=== PATIENT | female | born 1940 | race Caucasian/White ===

== ENCOUNTER 2016-03-16 16:20 | Inpatient (IN) | payer MEDICARE, MEDICAID ==
[2016-03-16 18:44] VITALS: BP 151/98
[2016-03-16] MEDS ORDERED: Magnesium Hydroxide (MOM) 30 mL UDC PO PRN (19:11)
[2016-03-16] MEDS ORDERED: Albuterol Nebulizer 2.5mg/3mL HHN PRN ×2 (19:11→19:36)
--- NOTE | 2016-03-17 00:33 | Consultation ---
IDENTIFYING INFORMATION: The patient is a 75-year-old female. REASON FOR CONSULTATION: I was asked to see this patient who was supposed to have been coming to [facility] because of agitation and irritability, but she was found to have acute hyponatremia. The patient herself was a poor historian. She was rambling, psychotic, agitated, irritable, unable to participate in a meaningful conversation, having multiple complaints, is very hard to understand. She has long history of psychosis with history of agitation and irritability. PAST PSYCHIATRIC HISTORY: Multiple prior admissions to this facility and other facilities because of psychosis, bipolar disorder, depression. MEDICAL HISTORY: Deferred to the medical doctor. The patient has acute hyponatremia. MEDICATIONS: The patient has been on the Zyprexa. FAMILY AND SOCIAL HISTORY: Please refer to old records, as the patient is unable to give me. The patient has been staying at [facility] for a long time. MENTAL STATUS EXAMINATION: The patient is appropriately dressed, not well groomed. She was rambling, loud, irritable, agitated, very hard to understand, unable to redirect to participate in meaningful conversation or make safe plan for self-care, unable to have her memory tested because of her agitation and psychosis. Her insight and judgment is impaired. IMPRESSION: AXIS I: Schizoaffective disorder, bipolar type. MEDICAL DIAGNOSES: Deferred to the medical doctor. RECOMMENDATIONS: Recommend continue the Zyprexa. The patient needed to be transferred to [facility] when medically cleared. Thank you very much for allowing me to participate in the care of this most interesting lady. ROBERTS [place]AP[place]# [id number]
[2016-03-17] MEDS: Levothyroxine 0.15 Mg Tab PO SCH (06:24)
[2016-03-17] MEDS: Potassium Chloride 20 mEq ER Tab PO SCH (09:05)
[2016-03-17] MEDS: Multivitamin w/ Minerals Tab PO SCH (09:05)
--- NOTE | 2016-03-17 14:12 | Psychosocial Evaluation ---
IDENTIFYING INFORMATION: The patient is a 75-year-old female. CHIEF COMPLAINT: The patient has no clue. HISTORY OF PRESENT ILLNESS: The patient was transferred from [facility]/surg. She was originally sent to [facility] because of agitation and psychosis. The patient herself was a poor historian, rambling and unable to participate in meaningful conversation or make safe plan for self-care, easily agitated. PAST PSYCHIATRIC HISTORY: Multiple prior admissions to this facility for similar reasons, agitation, psychosis. MEDICAL HISTORY: Deferred to the medical doctor. FAMILY AND SOCIAL HISTORY: Please refer to her old records. The patient is unable to tell me much. She has been at [place] for years now. MENTAL STATUS EXAMINATION: The patient is appropriately dressed, not well groomed. The patient was rambling and unable to participate in meaningful conversations or understand what she is talking about, unable to explain herself very well. She has been agitated, irritable, loud, labile mood, unable to provide memory testing or tell me the date, where she is, why she is here. Her insight and judgment is impaired. IMPRESSION: AXIS I: Schizoaffective disorder, bipolar type. MEDICAL DIAGNOSIS: Deferred to the medical doctor. Her assets, she is willing to get help, negative poor coping skills. INITIAL TREATMENT PLAN: The patient will be started back on her medications. She is on Zyprexa. We will do group therapy, milieu therapy, individual therapy. ESTIMATED LENGTH OF STAY: 3-7 days. DISCHARGE CRITERIA: Decreasing psychosis, agitation. After discharge, outpatient treatment. JOB# [id number]
--- NOTE | 2016-03-17 15:08 | Internal Medicine Prog Note ---
Internal Medicine Subjective - Subjective Service Date: 03/17/16 Patient seen and examined:: with staff Patient is:: awake Per staff patient is:: no adverse event Internal Medicine Objective - Physical Exam Vitals and I&O: Vital Signs Temp 98.0 F 03/16/16 18:43 Pulse 95 03/17/16 10:29 Resp 23 03/17/16 10:29 BP 143/72 03/17/16 09:06 Pulse Ox 96 03/16/16 19:45 Intake & Output 03/16/16 03/17/16 03/17/16 18:59 06:59 18:59 Other: Stool Characteristics Soft Soft Brown Active Medications: Current Medications Acetaminophen (Tylenol) 650 mg PO Q4H PRN PRN Reason: Mild Pain/Headache/T above 101 Stop: 05/15/16 19:10 Albuterol Sulfate (Albuterol 2.5mg/3ml Neb Ud) 2.5 mg HHN Q2HR PRN PRN Reason: Shortness of Breath Stop: 05/15/16 19:10 Ascorbic Acid (Vitamin C) 500 mg PO DAILY [facility] Stop: 05/16/16 08:59 Last Admin: 03/17/16 09:05 Dose: 500 mg Atenolol (Tenormin) 25 mg PO DAILY [facility] Stop: 05/16/16 08:59 Last Admin: 03/17/16 09:06 Dose: 25 mg Clonidine HCl (Catapres) 0.1 mg PO Q6H PRN PRN Reason: SBP >160 Stop: 05/15/16 19:35 Docusate Sodium (Colace) 100 mg PO BID [facility] Stop: 05/16/16 08:59 Last Admin: 03/17/16 09:05 Dose: 100 mg Guaifenesin (Robitussin) 200 mg PO Q4HR PRN PRN Reason: Cough or Congestion Stop: 05/15/16 19:35 Levothyroxine Sodium (Synthroid) 0.15 mg PO QDAC [facility] Stop: 05/16/16 06:29 Last Admin: 03/17/16 06:24 Dose: 0.15 mg Lisinopril (Zestril) 20 mg PO DAILY [facility] Stop: 05/16/16 08:59 Last Admin: 03/17/16 09:05 Dose: 20 mg Lorazepam (Ativan) 0.5 mg PO Q4HR PRN; Protocol PRN Reason: Agitation Stop: 05/16/16 13:36 Magnesium Hydroxide (Milk Of Magnesia) 30 ml PO DAILY PRN PRN Reason: Constipation Stop: 05/15/16 19:10 Meclizine HCl (Antivert) 25 mg PO DAILY PRN PRN Reason: Nausea / Vomiting Stop: 05/15/16 19:35 Olanzapine (Zyprexa) 10 mg PO HS [facility] PRN Reason: Protocol Stop: 05/16/16 20:59 Olanzapine (Zyprexa) 2.5 mg PO DAILY [facility] PRN Reason: Protocol Stop: 05/17/16 08:59 Potassium Chloride (Klor-Con) 20 meq PO DAILY [facility] Stop: 05/16/16 08:59 Last Admin: 03/17/16 09:05 Dose: 20 meq Sodium Chloride (Nacl Tab) 2 gm PO BID [facility] Stop: 05/16/16 08:59 Last Admin: 03/17/16 09:05 Dose: 2 gm Zolpidem Tartrate (Ambien) 10 mg PO HS PRN PRN Reason: Insomnia Stop: 05/15/16 19:10 General: alert HEENT: NC/AT, PERRLA Neck: Supple Lungs: CTAB Cardiovascular: RRR, Normal S1, Normal S2, without murmur Abdomen: soft non-tender Neurological: no change - Procedures Procedures: Procedures Procedure Code Date APPENDECTOMY ADD-ON 22872 08/04/15 BYPASS TRANSVERSE COLON TO CUTANEOUS, OPEN APPROACH [id number] 08/04/15 COLOSTOMY 55025 08/04/15 EXCISION OF LARGE INTESTINE, OPEN APPROACH [id number] 08/04/15 GROUP PSYCHOTHERAPY 30693 07/31/15 GROUP PSYCHOTHERAPY GZHZZZZ 07/31/15 GROUP PSYCHOTHERAPY 64972 04/02/15 GROUP PSYCHOTHERAPY GZHZZZZ 04/02/15 OTHER GROUP THERAPY 94.44 11/07/14 PARTIAL REMOVAL OF COLON 34446 08/04/15 RECREATIONAL THERAPY 93.81 02/21/10 RESECTION OF APPENDIX, OPEN APPROACH [id number] 08/04/15 Internal Medicine Assmt/Plan - Assessment Assessment: htn dyslipidemia hypothyroid dementia - Plan Plan: low fat diet monitor bp cpm
[2016-03-18] MEDS: Levothyroxine 0.15 Mg Tab PO SCH (06:25)
[2016-03-18] MEDS ORDERED: Haloperidol Lactate 5 mg/mL 1mL Vial ONE (10:15)
[2016-03-18] MEDS ORDERED: Haloperidol Lactate 5 mg/mL 1mL Vial IM ONE (10:23)
[2016-03-18] MEDS: Multivitamin w/ Minerals Tab PO SCH (10:41)
[2016-03-18] MEDS: Potassium Chloride 20 mEq ER Tab PO SCH (10:41)
--- NOTE | 2016-03-18 14:30 | Internal Medicine Prog Note ---
Internal Medicine Subjective - Subjective Service Date: 03/18/16 Patient seen and examined:: with staff Patient is:: awake Per staff patient is:: no adverse event Internal Medicine Objective - Physical Exam Vitals and I&O: Vital Signs Temp 98 F 03/18/16 07:12 Pulse 74 03/18/16 10:40 Resp 20 03/18/16 07:12 BP 146/84 03/18/16 10:40 Pulse Ox 97 03/18/16 07:12 Intake & Output 03/17/16 03/18/16 03/18/16 18:59 06:59 18:59 Intake Total 1200 Balance 1200 Intake: Oral 1200 Other: # Voids 2 # Bowel Movements 2 Stool Characteristics Soft Soft Brown Active Medications: Current Medications Acetaminophen (Tylenol) 650 mg PO Q4H PRN PRN Reason: Mild Pain/Headache/T above 101 Stop: 05/15/16 19:10 Albuterol Sulfate (Albuterol 2.5mg/3ml Neb Ud) 2.5 mg HHN Q2HR PRN PRN Reason: Shortness of Breath Stop: 05/15/16 19:10 Ascorbic Acid (Vitamin C) 500 mg PO DAILY [facility] Stop: 05/16/16 08:59 Last Admin: 03/18/16 10:37 Dose: Not Given Atenolol (Tenormin) 25 mg PO DAILY [facility] Stop: 05/16/16 08:59 Last Admin: 03/18/16 10:40 Dose: Not Given Clonidine HCl (Catapres) 0.1 mg PO Q6H PRN PRN Reason: SBP >160 Stop: 05/15/16 19:35 Docusate Sodium (Colace) 100 mg PO BID [facility] Stop: 05/16/16 08:59 Last Admin: 03/18/16 10:38 Dose: Not Given Guaifenesin (Robitussin) 200 mg PO Q4HR PRN PRN Reason: Cough or Congestion Stop: 05/15/16 19:35 Levothyroxine Sodium (Synthroid) 0.15 mg PO QDAC [facility] Stop: 05/16/16 06:29 Last Admin: 03/18/16 06:25 Dose: 0.15 mg Lisinopril (Zestril) 20 mg PO DAILY [facility] Stop: 05/16/16 08:59 Last Admin: 03/18/16 10:38 Dose: Not Given Lorazepam (Ativan) 0.5 mg PO Q4HR PRN; Protocol PRN Reason: Agitation Stop: 05/16/16 13:36 Magnesium Hydroxide (Milk Of Magnesia) 30 ml PO DAILY PRN PRN Reason: Constipation Stop: 05/15/16 19:10 Meclizine HCl (Antivert) 25 mg PO DAILY PRN PRN Reason: Nausea / Vomiting Stop: 05/15/16 19:35 Olanzapine (Zyprexa) 10 mg PO HS [facility] PRN Reason: Protocol Stop: 05/16/16 20:59 Last Admin: 03/17/16 20:41 Dose: 10 mg Olanzapine (Zyprexa) 5 mg PO DAILY [facility] PRN Reason: Protocol Stop: 05/17/16 09:47 Potassium Chloride (Klor-Con) 20 meq PO DAILY [facility] Stop: 05/16/16 08:59 Last Admin: 03/18/16 10:41 Dose: Not Given Sodium Chloride (Nacl Tab) 2 gm PO BID [facility] Stop: 05/16/16 08:59 Last Admin: 03/18/16 10:41 Dose: Not Given Zolpidem Tartrate (Ambien) 10 mg PO HS PRN PRN Reason: Insomnia Stop: 05/15/16 19:10 General: alert HEENT: NC/AT, PERRLA Neck: Supple Lungs: CTAB Cardiovascular: RRR, Normal S1, Normal S2, without murmur Abdomen: soft non-tender - Procedures Procedures: Procedures Procedure Code Date APPENDECTOMY ADD-ON 11294 08/04/15 BYPASS TRANSVERSE COLON TO CUTANEOUS, OPEN APPROACH [id number] 08/04/15 COLOSTOMY 20391 08/04/15 EXCISION OF LARGE INTESTINE, OPEN APPROACH [id number] 08/04/15 GROUP PSYCHOTHERAPY 85917 07/31/15 GROUP PSYCHOTHERAPY GZHZZZZ 07/31/15 GROUP PSYCHOTHERAPY 97522 04/02/15 GROUP PSYCHOTHERAPY GZHZZZZ 04/02/15 OTHER GROUP THERAPY 94.44 11/07/14 PARTIAL REMOVAL OF COLON 21646 08/04/15 RECREATIONAL THERAPY 93.81 02/21/10 RESECTION OF APPENDIX, OPEN APPROACH [id number] 08/04/15 Internal Medicine Assmt/Plan - Assessment Assessment: htn dyslipidemia hypothyroid dementia - Plan Plan: low fat diet monitor bp cpm
--- NOTE | 2016-03-19 00:43 | Progress Notes ---
Case discussed with staff of the patient, reviewed records. The patient continues to be easily agitated. She was naked, put her pants down, to the nurses' station, yelling, screaming. Very poor insight. Continues to be unpredictable, impulsive. Unable to make safe plan for her self-care. She is sleeping well, eating well. She has been compliant with the medication with no side effects, no sedation, no nausea, no extrapyramidal symptoms. I will be increasing her Zyprexa to 5 mg in the morning, continue the 10 mg at bedtime. No side effects, no sedation, no nausea, no extrapyramidal symptoms. We will continue to work with the patient in group therapy, milieu therapy, adjust the medication as needed. JOB# [id number]
[2016-03-19] MEDS: Levothyroxine 0.15 Mg Tab PO SCH (06:34)
[2016-03-19] MEDS: Potassium Chloride 20 mEq ER Tab PO SCH (09:39)
[2016-03-19] MEDS: Multivitamin w/ Minerals Tab PO SCH (09:41)
--- NOTE | 2016-03-19 11:46 | Internal Medicine Prog Note ---
Internal Medicine Subjective - Subjective Service Date: 03/19/16 Patient seen and examined:: with staff Patient is:: awake Per staff patient is:: no adverse event Internal Medicine Objective - Physical Exam Vitals and I&O: Vital Signs Temp 98.1 F 03/18/16 20:22 Pulse 97 03/19/16 09:39 Resp 18 03/19/16 07:05 BP 175/90 03/19/16 09:39 Pulse Ox 96 03/19/16 07:05 Intake & Output 03/18/16 03/19/16 03/19/16 18:59 06:59 18:59 Intake Total 1480 Balance 1480 Intake: Oral 1480 Other: # Voids 2 1 Stool Characteristics Soft Soft Active Medications: Current Medications Acetaminophen (Tylenol) 650 mg PO Q4H PRN PRN Reason: Mild Pain/Headache/T above 101 Stop: 05/15/16 19:10 Albuterol Sulfate (Albuterol 2.5mg/3ml Neb Ud) 2.5 mg HHN Q2HR PRN PRN Reason: Shortness of Breath Stop: 05/15/16 19:10 Ascorbic Acid (Vitamin C) 500 mg PO DAILY [facility] Stop: 05/16/16 08:59 Last Admin: 03/19/16 09:42 Dose: 500 mg Atenolol (Tenormin) 25 mg PO DAILY [facility] Stop: 05/16/16 08:59 Last Admin: 03/19/16 09:38 Dose: 25 mg Clonidine HCl (Catapres) 0.1 mg PO Q6H PRN PRN Reason: SBP >160 Stop: 05/15/16 19:35 Docusate Sodium (Colace) 100 mg PO BID [facility] Stop: 05/16/16 08:59 Last Admin: 03/19/16 09:42 Dose: Not Given Guaifenesin (Robitussin) 200 mg PO Q4HR PRN PRN Reason: Cough or Congestion Stop: 05/15/16 19:35 Levothyroxine Sodium (Synthroid) 0.15 mg PO QDAC [facility] Stop: 05/16/16 06:29 Last Admin: 03/19/16 06:34 Dose: Not Given Lisinopril (Zestril) 20 mg PO DAILY [facility] Stop: 05/16/16 08:59 Last Admin: 03/19/16 09:39 Dose: 20 mg Lorazepam (Ativan) 0.5 mg PO Q4HR PRN; Protocol PRN Reason: Agitation Stop: 05/16/16 13:36 Magnesium Hydroxide (Milk Of Magnesia) 30 ml PO DAILY PRN PRN Reason: Constipation Stop: 05/15/16 19:10 Meclizine HCl (Antivert) 25 mg PO DAILY PRN PRN Reason: Nausea / Vomiting Stop: 05/15/16 19:35 Olanzapine (Zyprexa) 10 mg PO HS [facility] PRN Reason: Protocol Stop: 05/16/16 20:59 Last Admin: 03/18/16 21:16 Dose: Not Given Olanzapine (Zyprexa) 5 mg PO DAILY [facility] PRN Reason: Protocol Stop: 05/17/16 09:47 Last Admin: 03/19/16 09:40 Dose: 5 mg Potassium Chloride (Klor-Con) 20 meq PO DAILY [facility] Stop: 05/16/16 08:59 Last Admin: 03/19/16 09:39 Dose: 20 meq Sodium Chloride (Nacl Tab) 2 gm PO BID [facility] Stop: 05/16/16 08:59 Last Admin: 03/19/16 09:40 Dose: 2 gm Zolpidem Tartrate (Ambien) 10 mg PO HS PRN PRN Reason: Insomnia Stop: 05/15/16 19:10 General: alert Neck: Supple Lungs: CTAB Cardiovascular: RRR, Normal S1, Normal S2, without murmur Abdomen: soft non-tender Extremities: clear - Procedures Procedures: Procedures Procedure Code Date APPENDECTOMY ADD-ON 44271 08/04/15 BYPASS TRANSVERSE COLON TO CUTANEOUS, OPEN APPROACH [id number] 08/04/15 COLOSTOMY 79590 08/04/15 EXCISION OF LARGE INTESTINE, OPEN APPROACH [id number] 08/04/15 GROUP PSYCHOTHERAPY 57274 07/31/15 GROUP PSYCHOTHERAPY GZHZZZZ 07/31/15 GROUP PSYCHOTHERAPY 00859 04/02/15 GROUP PSYCHOTHERAPY GZHZZZZ 04/02/15 OTHER GROUP THERAPY 94.44 11/07/14 PARTIAL REMOVAL OF COLON 81528 08/04/15 RECREATIONAL THERAPY 93.81 02/21/10 RESECTION OF APPENDIX, OPEN APPROACH [id number] 08/04/15 Internal Medicine Assmt/Plan - Assessment Assessment: htn dyslipidemia hypothyroid dementia - Plan Plan: low fat diet monitor bp cpm
[2016-03-20] MEDS: Levothyroxine 0.15 Mg Tab PO SCH (06:33)
[2016-03-20] MEDS: Potassium Chloride 20 mEq ER Tab PO SCH (09:05)
[2016-03-20] MEDS: Multivitamin w/ Minerals Tab PO SCH (09:06)
--- NOTE | 2016-03-20 09:08 | Progress Notes ---
Dr. Reed covering for Dr. Kaufman. SUBJECTIVE: The patient was seen and evaluated. The patient's chart reviewed. Overnight's staff members reported that the patient had received an IM after the patient was found to be disrobing herself. On [id number] evaluation, the patient is easily irritable, easily agitated, curses at times, needing some redirection to have a linear conversation, which she is not able to engage in. MENTAL STATUS EXAMINATION: Easily irritable, agitated, disorganized thought process. Poor insight, poor judgment, poor impulse control. ASSESSMENT AND PLAN: The patient is a 75-year-old female who still presents easily disorganized, disheveled, needing some redirections and mainly refusing her medications. We will continue with primary psychiatrist's treatment plan and goals, olanzapine 15 mg a day and continue with the current medication regimen till reaching steady state to target the patient's disorganized thought process. JOB# [id number]
--- NOTE | 2016-03-20 14:59 | Internal Medicine Prog Note ---
Internal Medicine Subjective - Subjective Service Date: 03/20/16 Patient seen and examined:: with staff Patient is:: awake Per staff patient is:: no adverse event Internal Medicine Objective - Physical Exam Vitals and I&O: Vital Signs Temp 97.9 F 03/20/16 06:25 Pulse 81 03/20/16 09:05 Resp 20 03/20/16 06:25 BP 168/85 03/20/16 09:05 Pulse Ox 95 03/20/16 06:25 Intake & Output 03/19/16 03/20/16 03/20/16 18:59 06:59 18:59 Intake Total 900 120 Balance 900 120 Intake: Oral 900 120 Other: # Voids 4 3 # Bowel Movements 1 0 Stool Characteristics Soft Soft Liquid Active Medications: Current Medications Acetaminophen (Tylenol) 650 mg PO Q4H PRN PRN Reason: Mild Pain/Headache/T above 101 Stop: 05/15/16 19:10 Last Admin: 03/20/16 09:04 Dose: 650 mg Albuterol Sulfate (Albuterol 2.5mg/3ml Neb Ud) 2.5 mg HHN Q2HR PRN PRN Reason: Shortness of Breath Stop: 05/15/16 19:10 Ascorbic Acid (Vitamin C) 500 mg PO DAILY [facility] Stop: 05/16/16 08:59 Last Admin: 03/20/16 09:06 Dose: 500 mg Atenolol (Tenormin) 25 mg PO DAILY [facility] Stop: 05/16/16 08:59 Last Admin: 03/20/16 09:04 Dose: 25 mg Clonidine HCl (Catapres) 0.1 mg PO Q6H PRN PRN Reason: SBP >160 Stop: 05/15/16 19:35 Docusate Sodium (Colace) 100 mg PO BID [facility] Stop: 05/16/16 08:59 Last Admin: 03/20/16 09:05 Dose: 100 mg Guaifenesin (Robitussin) 200 mg PO Q4HR PRN PRN Reason: Cough or Congestion Stop: 05/15/16 19:35 Levothyroxine Sodium (Synthroid) 0.15 mg PO QDAC [facility] Stop: 05/16/16 06:29 Last Admin: 03/20/16 06:33 Dose: 0.15 mg Lisinopril (Zestril) 20 mg PO DAILY [facility] Stop: 05/16/16 08:59 Last Admin: 03/20/16 09:05 Dose: 20 mg Lorazepam (Ativan) 0.5 mg PO Q4HR PRN; Protocol PRN Reason: Agitation Stop: 05/16/16 13:36 Last Admin: 03/20/16 09:04 Dose: 0.5 mg Magnesium Hydroxide (Milk Of Magnesia) 30 ml PO DAILY PRN PRN Reason: Constipation Stop: 05/15/16 19:10 Meclizine HCl (Antivert) 25 mg PO DAILY PRN PRN Reason: Nausea / Vomiting Stop: 05/15/16 19:35 Olanzapine (Zyprexa) 10 mg PO HS [facility] PRN Reason: Protocol Stop: 05/16/16 20:59 Last Admin: 03/19/16 20:28 Dose: 10 mg Olanzapine (Zyprexa) 10 mg PO DAILY [facility] PRN Reason: Protocol Stop: 05/17/16 09:47 Potassium Chloride (Klor-Con) 20 meq PO DAILY [facility] Stop: 05/16/16 08:59 Last Admin: 03/20/16 09:05 Dose: 20 meq Sodium Chloride (Nacl Tab) 2 gm PO BID [facility] Stop: 05/16/16 08:59 Last Admin: 03/20/16 09:05 Dose: 2 gm Zolpidem Tartrate (Ambien) 10 mg PO HS PRN PRN Reason: Insomnia Stop: 05/15/16 19:10 General: alert HEENT: NC/AT, PERRLA Neck: Supple Lungs: CTAB Cardiovascular: RRR, Normal S1, Normal S2, without murmur Abdomen: soft non-tender Neurological: no change - Procedures Procedures: Procedures Procedure Code Date APPENDECTOMY ADD-ON 49684 08/04/15 BYPASS TRANSVERSE COLON TO CUTANEOUS, OPEN APPROACH [id number] 08/04/15 COLOSTOMY 24742 08/04/15 EXCISION OF LARGE INTESTINE, OPEN APPROACH [id number] 08/04/15 GROUP PSYCHOTHERAPY 60720 07/31/15 GROUP PSYCHOTHERAPY GZHZZZZ 07/31/15 GROUP PSYCHOTHERAPY 31724 04/02/15 GROUP PSYCHOTHERAPY GZHZZZZ 04/02/15 OTHER GROUP THERAPY 94.44 11/07/14 PARTIAL REMOVAL OF COLON 41685 08/04/15 RECREATIONAL THERAPY 93.81 02/21/10 RESECTION OF APPENDIX, OPEN APPROACH [id number] 08/04/15 Internal Medicine Assmt/Plan - Assessment Assessment: htn dyslipidemia hypothyroid dementia - Plan Plan: low fat diet monitor bp cpm
--- NOTE | 2016-03-21 02:47 | Progress Notes ---
SUBJECTIVE: The patient was seen and evaluated. The patient's chart reviewed. Overnight's staff members reported that the patient is easily irritable. Today, on [id number] evaluation, the patient is in the day room, very disorganized, very difficult to understand, to maintain a coherent conversation, needed some redirection. MENTAL STATUS EXAMINATION: Disorganized thought process, disheveled, and malodorous. Poor insight and poor judgment. Poor impulse control. ASSESSMENT AND PLAN: The patient is a 75-year-old female who presents very disorganized, disheveled, malodorous, unable to formulate a safe plan. We will continue with primary psychiatric treatment plan and goals due to the patient's very disorganized thought process and she is unable to formulate a safe plan. We will continue maximizing the use of antipsychotics to target the patient's disorganized thought process. JOB# [id number] MTDD
[2016-03-21] MEDS: Levothyroxine 0.15 Mg Tab PO SCH (06:38)
--- NOTE | 2016-03-21 15:44 | Internal Medicine Prog Note ---
Internal Medicine Subjective - Subjective Patient seen and examined:: with staff, chart reviewed Patient is:: awake, ambulating Patient Complaints of:: congestion Per staff patient is:: no adverse event, noncompliant, confused Internal Medicine Objective - Physical Exam Vitals and I&O: Vital Signs Temp 97.7 F 03/21/16 06:15 Pulse 83 03/21/16 06:15 Resp 18 03/21/16 08:54 BP 124/77 03/21/16 06:15 Pulse Ox 95 03/21/16 06:15 Intake & Output 03/20/16 03/21/16 03/21/16 18:59 06:59 18:59 Intake Total 900 120 Balance 900 120 Intake: Oral 900 120 Other: # Voids 3 3 # Bowel Movements 1 0 Stool Characteristics Soft Soft Liquid Active Medications: Current Medications Acetaminophen (Tylenol) 650 mg PO Q4H PRN PRN Reason: Mild Pain/Headache/T above 101 Stop: 05/15/16 19:10 Last Admin: 03/21/16 09:25 Dose: 650 mg Albuterol Sulfate (Albuterol 2.5mg/3ml Neb Ud) 2.5 mg HHN Q2HR PRN PRN Reason: Shortness of Breath Stop: 05/15/16 19:10 Ascorbic Acid (Vitamin C) 500 mg PO DAILY [facility] Stop: 05/16/16 08:59 Last Admin: 03/20/16 09:06 Dose: 500 mg Atenolol (Tenormin) 25 mg PO DAILY [facility] Stop: 05/16/16 08:59 Last Admin: 03/20/16 09:04 Dose: 25 mg Clonidine HCl (Catapres) 0.1 mg PO Q6H PRN PRN Reason: SBP >160 Stop: 05/15/16 19:35 Docusate Sodium (Colace) 100 mg PO BID [facility] Stop: 05/16/16 08:59 Last Admin: 03/20/16 16:50 Dose: 100 mg Guaifenesin (Robitussin) 200 mg PO Q4HR PRN PRN Reason: Cough or Congestion Stop: 05/15/16 19:35 Levothyroxine Sodium (Synthroid) 0.15 mg PO QDAC [facility] Stop: 05/16/16 06:29 Last Admin: 03/21/16 06:38 Dose: 0.15 mg Lisinopril (Zestril) 20 mg PO DAILY [facility] Stop: 05/16/16 08:59 Last Admin: 03/20/16 09:05 Dose: 20 mg Lorazepam (Ativan) 0.5 mg PO Q4HR PRN; Protocol PRN Reason: Agitation Stop: 05/16/16 13:36 Last Admin: 03/20/16 09:04 Dose: 0.5 mg Magnesium Hydroxide (Milk Of Magnesia) 30 ml PO DAILY PRN PRN Reason: Constipation Stop: 05/15/16 19:10 Meclizine HCl (Antivert) 25 mg PO DAILY PRN PRN Reason: Nausea / Vomiting Stop: 05/15/16 19:35 Olanzapine (Zyprexa) 10 mg PO HS [facility] PRN Reason: Protocol Stop: 05/16/16 20:59 Last Admin: 03/20/16 20:35 Dose: 10 mg Olanzapine (Zyprexa) 10 mg PO DAILY [facility] PRN Reason: Protocol Stop: 05/17/16 09:47 Last Admin: 03/21/16 09:26 Dose: 10 mg Potassium Chloride (Klor-Con) 20 meq PO DAILY [facility] Stop: 05/16/16 08:59 Last Admin: 03/20/16 09:05 Dose: 20 meq Sodium Chloride (Nacl Tab) 2 gm PO BID [facility] Stop: 05/16/16 08:59 Last Admin: 03/20/16 16:49 Dose: 2 gm Zolpidem Tartrate (Ambien) 10 mg PO HS PRN PRN Reason: Insomnia Stop: 05/15/16 19:10 Last Admin: 03/20/16 20:35 Dose: 10 mg General: lethargic, demented HEENT: NC/AT, PERRLA Neck: Supple, No JVD Lungs: CTAB Cardiovascular: RRR, Normal S1, Normal S2 Abdomen: soft non-tender, globular, distended Extremities: excoriation, contracture Neurological: no change - Procedures Procedures: Procedures Procedure Code Date APPENDECTOMY ADD-ON 70538 08/04/15 BYPASS TRANSVERSE COLON TO CUTANEOUS, OPEN APPROACH [id number] 08/04/15 COLOSTOMY 59355 08/04/15 EXCISION OF LARGE INTESTINE, OPEN APPROACH [id number] 08/04/15 GROUP PSYCHOTHERAPY 35524 07/31/15 GROUP PSYCHOTHERAPY GZHZZZZ 07/31/15 GROUP PSYCHOTHERAPY 46318 04/02/15 GROUP PSYCHOTHERAPY GZHZZZZ 04/02/15 OTHER GROUP THERAPY 94.44 11/07/14 PARTIAL REMOVAL OF COLON 51286 08/04/15 RECREATIONAL THERAPY 93.81 02/21/10 RESECTION OF APPENDIX, OPEN APPROACH [id number] 08/04/15 Internal Medicine Assmt/Plan - Assessment Assessment: rectal prolapse htn dyslipidemia hypothyroid dementia noncompliant - Plan Plan: cont on bp med monitor for rectal bleed monitor h and h gerry rn
[2016-03-21] MEDS: Potassium Chloride 20 mEq ER Tab PO SCH (16:10)
[2016-03-21] MEDS: Multivitamin w/ Minerals Tab PO SCH (16:10)
--- NOTE | 2016-03-21 18:52 | Progress Notes ---
SUBJECTIVE: The patient seen, chart reviewed, discussed with staff. The patient presents to the hospital, disorganized, disheveled and malodorous, unable to be cared for at a lower level of care. She is yelling at me, screaming at me, easily irritable, I cannot understand her. Needing a lot of redirection. Following me until the dayroom, continuing to yell. Medications were reviewed. Labs were reviewed. No overt side effects noted. The patient is frustrated. ASSESSMENT: The patient remains symptomatic, still needing redirection and needing prompting. She is with fair attention ADLs, but still symptomatic. PLAN: We will continue to monitor her closely for any overt medication side effects. Given the severity of the patient's symptoms, she requires continued inpatient hospitalization. The patient is currently in the hospital due to agitation and unable to be cared for a lesser level of care. She has been to this [facility] unit multiple times. JOB# [id number]
[2016-03-22] MEDS: guaiFENesin 200 MG/10 ML UDC PO PRN (01:43)
[2016-03-22] MEDS: Potassium Chloride 20 mEq ER Tab PO SCH (09:14)
[2016-03-22] MEDS: Multivitamin w/ Minerals Tab PO SCH (09:14)
--- NOTE | 2016-03-22 12:37 | Internal Medicine Prog Note ---
Internal Medicine Subjective - Subjective Service Date: 03/22/16 Patient seen and examined:: with staff Patient is:: awake Per staff patient is:: no adverse event Internal Medicine Objective - Physical Exam Vitals and I&O: Vital Signs Temp 98.1 F 03/22/16 06:07 Pulse 88 03/22/16 09:15 Resp 18 03/22/16 09:00 BP 126/75 03/22/16 09:15 Pulse Ox 95 03/22/16 09:00 Intake & Output 03/21/16 03/22/16 03/22/16 18:59 06:59 18:59 Intake Total 1200 480 Balance 1200 480 Intake: Oral 1200 480 Other: # Voids 4 2 # Bowel Movements 2 2 Stool Characteristics Liquid Brown Active Medications: Current Medications Acetaminophen (Tylenol) 650 mg PO Q4H PRN PRN Reason: Mild Pain/Headache/T above 101 Stop: 05/15/16 19:10 Last Admin: 03/21/16 09:25 Dose: 650 mg Albuterol Sulfate (Albuterol 2.5mg/3ml Neb Ud) 2.5 mg HHN Q2HR PRN PRN Reason: Shortness of Breath Stop: 05/15/16 19:10 Ascorbic Acid (Vitamin C) 500 mg PO DAILY [facility] Stop: 05/16/16 08:59 Last Admin: 03/22/16 09:14 Dose: 500 mg Atenolol (Tenormin) 25 mg PO DAILY [facility] Stop: 05/16/16 08:59 Last Admin: 03/22/16 09:15 Dose: 25 mg Clonidine HCl (Catapres) 0.1 mg PO Q6H PRN PRN Reason: SBP >160 Stop: 05/15/16 19:35 Docusate Sodium (Colace) 100 mg PO BID [facility] Stop: 05/16/16 08:59 Last Admin: 03/22/16 09:14 Dose: 100 mg Guaifenesin (Robitussin) 200 mg PO Q4HR PRN PRN Reason: Cough or Congestion Stop: 05/15/16 19:35 Last Admin: 03/22/16 01:43 Dose: 200 mg Levothyroxine Sodium (Synthroid) 0.15 mg PO QDAC [facility] Stop: 05/16/16 06:29 Last Admin: 03/21/16 06:38 Dose: 0.15 mg Lisinopril (Zestril) 20 mg PO DAILY [facility] Stop: 05/16/16 08:59 Last Admin: 03/22/16 09:14 Dose: 20 mg Lorazepam (Ativan) 0.5 mg PO Q4HR PRN; Protocol PRN Reason: Agitation Stop: 05/16/16 13:36 Last Admin: 03/20/16 09:04 Dose: 0.5 mg Magnesium Hydroxide (Milk Of Magnesia) 30 ml PO DAILY PRN PRN Reason: Constipation Stop: 05/15/16 19:10 Meclizine HCl (Antivert) 25 mg PO DAILY PRN PRN Reason: Nausea / Vomiting Stop: 05/15/16 19:35 Olanzapine (Zyprexa) 10 mg PO DAILY [facility] PRN Reason: Protocol Stop: 05/17/16 09:47 Last Admin: 03/22/16 09:14 Dose: 10 mg Olanzapine 10 mg/ Olanzapine 2 (.5 mg) 12.5 mg PO HS [facility] Stop: 05/21/16 20:59 Potassium Chloride (Klor-Con) 20 meq PO DAILY [facility] Stop: 05/16/16 08:59 Last Admin: 03/22/16 09:14 Dose: 20 meq Sodium Chloride (Nacl Tab) 2 gm PO BID [facility] Stop: 05/16/16 08:59 Last Admin: 03/22/16 09:14 Dose: 2 gm Zolpidem Tartrate (Ambien) 10 mg PO HS PRN PRN Reason: Insomnia Stop: 05/15/16 19:10 Last Admin: 03/20/16 20:35 Dose: 10 mg General: alert HEENT: NC/AT, PERRLA Neck: Supple Lungs: CTAB Cardiovascular: RRR, Normal S1, Normal S2, without murmur Abdomen: soft non-tender Extremities: clear - Procedures Procedures: Procedures Procedure Code Date APPENDECTOMY ADD-ON 64648 08/04/15 BYPASS TRANSVERSE COLON TO CUTANEOUS, OPEN APPROACH [id number] 08/04/15 COLOSTOMY 68406 08/04/15 EXCISION OF LARGE INTESTINE, OPEN APPROACH [id number] 08/04/15 GROUP PSYCHOTHERAPY 92725 07/31/15 GROUP PSYCHOTHERAPY GZHZZZZ 07/31/15 GROUP PSYCHOTHERAPY 11657 04/02/15 GROUP PSYCHOTHERAPY GZHZZZZ 04/02/15 OTHER GROUP THERAPY 94.44 11/07/14 PARTIAL REMOVAL OF COLON 65188 08/04/15 RECREATIONAL THERAPY 93.81 02/21/10 RESECTION OF APPENDIX, OPEN APPROACH [id number] 08/04/15 Internal Medicine Assmt/Plan - Assessment Assessment: htn dyslipidemia hypothyroid dementia - Plan Plan: low fat diet monitor bp cpm
--- NOTE | 2016-03-22 23:57 | Progress Notes ---
Case was discussed with staff of the patient, reviewed records. The patient continues to be irritable, agitated, and continues to have poor insight. Continues to be unable to make safe plan for self-care. Continues to need redirection. Unpredictable impulsive, and very poor insight. Loud, mumbling, very hard to understand. Very hard to redirect, and so far, she is compliant with the medication with no side effects, no sedation, and no nausea. She is on olanzapine 10 mg at bedtime and 10 mg daily. I will be increasing olanzapine at bedtime to 12.5 mg at bedtime, and so far, no side effects and no sedation. We will continue to work with the patient in group therapy, milieu therapy, and adjust the medication as needed. JOB# [id number]
[2016-03-23] MEDS: Potassium Chloride 20 mEq ER Tab PO SCH (11:18)
[2016-03-23] MEDS: Multivitamin w/ Minerals Tab PO SCH (11:18)
--- NOTE | 2016-03-23 13:55 | Internal Medicine Prog Note ---
Internal Medicine Subjective - Subjective Service Date: 03/23/16 Patient seen and examined:: with staff Patient is:: awake Per staff patient is:: no adverse event Internal Medicine Objective - Physical Exam Vitals and I&O: Vital Signs Temp 0 F 03/23/16 06:17 Pulse 70 03/23/16 11:01 Resp 18 03/23/16 11:01 BP 111/60 03/22/16 20:44 Pulse Ox 94 03/23/16 11:01 Intake & Output 03/22/16 03/23/16 03/23/16 18:59 06:59 18:59 Intake Total 1100 120 Balance 1100 120 Intake: Oral 1100 120 Other: # Voids 5 4 # Bowel Movements 3 0 Stool Characteristics Soft Soft Liquid Liquid Brown Active Medications: Current Medications Acetaminophen (Tylenol) 650 mg PO Q4H PRN PRN Reason: Mild Pain/Headache/T above 101 Stop: 05/15/16 19:10 Last Admin: 03/21/16 09:25 Dose: 650 mg Albuterol Sulfate (Albuterol 2.5mg/3ml Neb Ud) 2.5 mg HHN Q2HR PRN PRN Reason: Shortness of Breath Stop: 05/15/16 19:10 Ascorbic Acid (Vitamin C) 500 mg PO DAILY [facility] Stop: 05/16/16 08:59 Last Admin: 03/23/16 11:16 Dose: Not Given Atenolol (Tenormin) 25 mg PO DAILY [facility] Stop: 05/16/16 08:59 Last Admin: 03/23/16 11:16 Dose: Not Given Clonidine HCl (Catapres) 0.1 mg PO Q6H PRN PRN Reason: SBP >160 Stop: 05/15/16 19:35 Docusate Sodium (Colace) 100 mg PO BID [facility] Stop: 05/16/16 08:59 Last Admin: 03/23/16 11:17 Dose: Not Given Guaifenesin (Robitussin) 200 mg PO Q4HR PRN PRN Reason: Cough or Congestion Stop: 05/15/16 19:35 Last Admin: 03/22/16 01:43 Dose: 200 mg Levothyroxine Sodium (Synthroid) 0.15 mg PO QDAC [facility] Stop: 05/16/16 06:29 Last Admin: 03/21/16 06:38 Dose: 0.15 mg Lisinopril (Zestril) 20 mg PO DAILY [facility] Stop: 05/16/16 08:59 Last Admin: 03/23/16 11:18 Dose: Not Given Lorazepam (Ativan) 0.5 mg PO Q4HR PRN; Protocol PRN Reason: Agitation Stop: 05/16/16 13:36 Last Admin: 03/20/16 09:04 Dose: 0.5 mg Magnesium Hydroxide (Milk Of Magnesia) 30 ml PO DAILY PRN PRN Reason: Constipation Stop: 05/15/16 19:10 Meclizine HCl (Antivert) 25 mg PO DAILY PRN PRN Reason: Nausea / Vomiting Stop: 05/15/16 19:35 Olanzapine (Zyprexa) 10 mg PO DAILY [facility] PRN Reason: Protocol Stop: 05/17/16 09:47 Last Admin: 03/23/16 11:18 Dose: Not Given Olanzapine 10 mg/ Olanzapine 2 (.5 mg) 12.5 mg PO HS [facility] Stop: 05/21/16 20:59 Last Admin: 03/22/16 20:29 Dose: 12.5 mg Potassium Chloride (Klor-Con) 20 meq PO DAILY [facility] Stop: 05/16/16 08:59 Last Admin: 03/23/16 11:18 Dose: Not Given Sodium Chloride (Nacl Tab) 2 gm PO BID [facility] Stop: 05/16/16 08:59 Last Admin: 03/23/16 11:19 Dose: Not Given Zolpidem Tartrate (Ambien) 10 mg PO HS PRN PRN Reason: Insomnia Stop: 05/15/16 19:10 Last Admin: 03/20/16 20:35 Dose: 10 mg General: alert HEENT: NC/AT, PERRLA Neck: Supple Lungs: CTAB Cardiovascular: RRR, Normal S1, Normal S2, without murmur Abdomen: soft non-tender - Procedures Procedures: Procedures Procedure Code Date APPENDECTOMY ADD-ON 36385 08/04/15 BYPASS TRANSVERSE COLON TO CUTANEOUS, OPEN APPROACH [id number] 08/04/15 COLOSTOMY 13789 08/04/15 EXCISION OF LARGE INTESTINE, OPEN APPROACH [id number] 08/04/15 GROUP PSYCHOTHERAPY 57436 07/31/15 GROUP PSYCHOTHERAPY GZHZZZZ 07/31/15 GROUP PSYCHOTHERAPY 40597 04/02/15 GROUP PSYCHOTHERAPY GZHZZZZ 04/02/15 OTHER GROUP THERAPY 94.44 11/07/14 PARTIAL REMOVAL OF COLON 29562 08/04/15 RECREATIONAL THERAPY 93.81 02/21/10 RESECTION OF APPENDIX, OPEN APPROACH [id number] 08/04/15 Internal Medicine Assmt/Plan - Assessment Assessment: htn dyslipidemia hypothyroid dementia - Plan Plan: low fat diet monitor bp cpm
[2016-03-23] MEDS: guaiFENesin 200 MG/10 ML UDC PO PRN (19:59)
--- NOTE | 2016-03-23 20:02 | Progress Notes ---
Case was discussed with staff of the patient, reviewed records. The patient continues to be agitated, irritable, and continues to need redirection. Continues to have poor insight. Continues to be unpredictable and impulsive. She is holding her colostomy bag, yelling and screaming. I did increase her Zyprexa yesterday. She is compliant with the medication with no side effects, no sedation, and no nausea. It is too early to make further adjustments as the dose was increased only yesterday. So, it is too early to have seen any benefit from it. We will continue to work with the patient in group therapy, milieu therapy, and adjust the medication as needed. JOB# [id number]
[2016-03-24] MEDS: Levothyroxine 0.15 Mg Tab PO SCH (06:31)
[2016-03-24] MEDS: Potassium Chloride 20 mEq ER Tab PO SCH (09:07)
[2016-03-24] MEDS: Multivitamin w/ Minerals Tab PO SCH (09:07)
--- NOTE | 2016-03-24 13:19 | Internal Medicine Prog Note ---
Internal Medicine Subjective - Subjective Service Date: 03/24/16 Patient seen and examined:: with staff Patient is:: awake Per staff patient is:: no adverse event Internal Medicine Objective - Physical Exam Vitals and I&O: Vital Signs Temp 98.3 F 03/24/16 06:51 Pulse 89 03/24/16 09:06 Resp 20 03/24/16 11:37 BP 134/74 03/24/16 09:06 Pulse Ox 94 03/24/16 08:20 Intake & Output 03/23/16 03/24/16 03/24/16 18:59 06:59 18:59 Intake Total 2400 Output Total 200 2 Balance 2200 -2 Intake: Oral 2400 Output: Stool 200 2 Other: # Voids 4 2 Stool Characteristics Soft Soft Soft Liquid Liquid Brown Brown Active Medications: Current Medications Acetaminophen (Tylenol) 650 mg PO Q4H PRN PRN Reason: Mild Pain/Headache/T above 101 Stop: 05/15/16 19:10 Last Admin: 03/21/16 09:25 Dose: 650 mg Albuterol Sulfate (Albuterol 2.5mg/3ml Neb Ud) 2.5 mg HHN Q2HR PRN PRN Reason: Shortness of Breath Stop: 05/15/16 19:10 Ascorbic Acid (Vitamin C) 500 mg PO DAILY [facility] Stop: 05/16/16 08:59 Last Admin: 03/24/16 09:06 Dose: 500 mg Atenolol (Tenormin) 25 mg PO DAILY [facility] Stop: 05/16/16 08:59 Last Admin: 03/24/16 09:06 Dose: 25 mg Clonidine HCl (Catapres) 0.1 mg PO Q6H PRN PRN Reason: SBP >160 Stop: 05/15/16 19:35 Docusate Sodium (Colace) 100 mg PO BID [facility] Stop: 05/16/16 08:59 Last Admin: 03/24/16 09:06 Dose: 100 mg Guaifenesin (Robitussin) 200 mg PO Q4HR PRN PRN Reason: Cough or Congestion Stop: 05/15/16 19:35 Last Admin: 03/23/16 19:59 Dose: 200 mg Levothyroxine Sodium (Synthroid) 0.15 mg PO QDAC [facility] Stop: 05/16/16 06:29 Last Admin: 03/24/16 06:31 Dose: Not Given Lisinopril (Zestril) 20 mg PO DAILY [facility] Stop: 05/16/16 08:59 Last Admin: 03/24/16 09:06 Dose: 20 mg Lorazepam (Ativan) 0.5 mg PO Q4HR PRN; Protocol PRN Reason: Agitation Stop: 05/16/16 13:36 Last Admin: 03/23/16 18:09 Dose: 0.5 mg Magnesium Hydroxide (Milk Of Magnesia) 30 ml PO DAILY PRN PRN Reason: Constipation Stop: 05/15/16 19:10 Meclizine HCl (Antivert) 25 mg PO DAILY PRN PRN Reason: Nausea / Vomiting Stop: 05/15/16 19:35 Olanzapine (Zyprexa) 10 mg PO DAILY [facility] PRN Reason: Protocol Stop: 05/17/16 09:47 Last Admin: 03/24/16 09:05 Dose: 10 mg Olanzapine 10 mg/ Olanzapine 2 (.5 mg) 12.5 mg PO HS [facility] Stop: 05/21/16 20:59 Last Admin: 03/23/16 19:58 Dose: 12.5 mg Potassium Chloride (Klor-Con) 20 meq PO DAILY [facility] Stop: 05/16/16 08:59 Last Admin: 03/24/16 09:07 Dose: 20 meq Sodium Chloride (Nacl Tab) 2 gm PO BID [facility] Stop: 05/16/16 08:59 Last Admin: 03/24/16 09:05 Dose: 2 gm Zolpidem Tartrate (Ambien) 10 mg PO HS PRN PRN Reason: Insomnia Stop: 05/15/16 19:10 Last Admin: 03/20/16 20:35 Dose: 10 mg General: alert HEENT: NC/AT, PERRLA Neck: Supple Lungs: CTAB Cardiovascular: RRR, Normal S1, Normal S2, without murmur Abdomen: soft non-tender Neurological: no change - Procedures Procedures: Procedures Procedure Code Date APPENDECTOMY ADD-ON 77661 08/04/15 BYPASS TRANSVERSE COLON TO CUTANEOUS, OPEN APPROACH [id number] 08/04/15 COLOSTOMY 92757 08/04/15 EXCISION OF LARGE INTESTINE, OPEN APPROACH [id number] 08/04/15 GROUP PSYCHOTHERAPY 61625 07/31/15 GROUP PSYCHOTHERAPY GZHZZZZ 07/31/15 GROUP PSYCHOTHERAPY 55678 04/02/15 GROUP PSYCHOTHERAPY GZHZZZZ 04/02/15 OTHER GROUP THERAPY 94.44 11/07/14 PARTIAL REMOVAL OF COLON 85766 08/04/15 RECREATIONAL THERAPY 93.81 02/21/10 RESECTION OF APPENDIX, OPEN APPROACH [id number] 08/04/15 Internal Medicine Assmt/Plan - Assessment Assessment: htn dyslipidemia hypothyroid dementia - Plan Plan: low fat diet monitor bp cpm
--- NOTE | 2016-03-25 04:06 | Progress Notes ---
Case was discussed with staff of the patient, reviewed records. The patient continues to be irritable, loud, continues to have poor insight. Continues to be unable to make safe plan for self-care. Continues to be easily agitated, acting inappropriately, needing redirection. I did increase her Zyprexa dose. We will give it more time to work and so far no side effects, no sedation, no nausea, and no extrapyramidal symptoms. We will continue to work with the patient in group therapy, milieu therapy, and adjust the medication. JOB# [id number]
[2016-03-25] MEDS: guaiFENesin 200 MG/10 ML UDC PO PRN (05:02)
[2016-03-25] MEDS: Levothyroxine 0.15 Mg Tab PO SCH (05:33)
[2016-03-25] MEDS: Multivitamin w/ Minerals Tab PO SCH (09:35)
[2016-03-25] MEDS: Potassium Chloride 20 mEq ER Tab PO SCH (09:36)
--- NOTE | 2016-03-25 12:49 | Internal Medicine Prog Note ---
Internal Medicine Subjective - Subjective Service Date: 03/25/16 Patient seen and examined:: with staff Patient is:: awake Per staff patient is:: no adverse event Internal Medicine Objective - Physical Exam Vitals and I&O: Vital Signs Temp 98 F 03/25/16 06:38 Pulse 84 03/25/16 09:36 Resp 20 03/25/16 08:00 BP 124/74 03/25/16 09:36 Pulse Ox 97 03/25/16 06:38 Intake & Output 03/24/16 03/25/16 03/25/16 18:59 06:59 18:59 Intake Total 1000 Balance 1000 Intake: Oral 1000 Other: # Voids 3 2 Stool Characteristics Soft Soft Soft Liquid Brown Liquid Brown Brown Active Medications: Current Medications Acetaminophen (Tylenol) 650 mg PO Q4H PRN PRN Reason: Mild Pain/Headache/T above 101 Stop: 05/15/16 19:10 Last Admin: 03/21/16 09:25 Dose: 650 mg Albuterol Sulfate (Albuterol 2.5mg/3ml Neb Ud) 2.5 mg HHN Q2HR PRN PRN Reason: Shortness of Breath Stop: 05/15/16 19:10 Ascorbic Acid (Vitamin C) 500 mg PO DAILY [facility] Stop: 05/16/16 08:59 Last Admin: 03/25/16 09:36 Dose: Not Given Atenolol (Tenormin) 25 mg PO DAILY [facility] Stop: 05/16/16 08:59 Last Admin: 03/25/16 09:36 Dose: Not Given Clonidine HCl (Catapres) 0.1 mg PO Q6H PRN PRN Reason: SBP >160 Stop: 05/15/16 19:35 Docusate Sodium (Colace) 100 mg PO BID [facility] Stop: 05/16/16 08:59 Last Admin: 03/25/16 09:35 Dose: Not Given Guaifenesin (Robitussin) 200 mg PO Q4HR PRN PRN Reason: Cough or Congestion Stop: 05/15/16 19:35 Last Admin: 03/25/16 05:02 Dose: 200 mg Levothyroxine Sodium (Synthroid) 0.15 mg PO QDAC [facility] Stop: 05/16/16 06:29 Last Admin: 03/25/16 05:33 Dose: 0.15 mg Lisinopril (Zestril) 20 mg PO DAILY [facility] Stop: 05/16/16 08:59 Last Admin: 03/25/16 09:35 Dose: Not Given Lorazepam (Ativan) 0.5 mg PO Q4HR PRN; Protocol PRN Reason: Agitation Stop: 05/16/16 13:36 Last Admin: 03/23/16 18:09 Dose: 0.5 mg Magnesium Hydroxide (Milk Of Magnesia) 30 ml PO DAILY PRN PRN Reason: Constipation Stop: 05/15/16 19:10 Meclizine HCl (Antivert) 25 mg PO DAILY PRN PRN Reason: Nausea / Vomiting Stop: 05/15/16 19:35 Olanzapine (Zyprexa) 10 mg PO DAILY [facility] PRN Reason: Protocol Stop: 05/17/16 09:47 Last Admin: 03/25/16 09:35 Dose: 10 mg Olanzapine 10 mg/ Olanzapine 2 (.5 mg) 12.5 mg PO HS [facility] Stop: 05/21/16 20:59 Last Admin: 03/24/16 20:26 Dose: 12.5 mg Potassium Chloride (Klor-Con) 20 meq PO DAILY [facility] Stop: 05/16/16 08:59 Last Admin: 03/25/16 09:36 Dose: Not Given Sodium Chloride (Nacl Tab) 2 gm PO BID [facility] Stop: 05/16/16 08:59 Last Admin: 03/25/16 09:35 Dose: 2 gm Zolpidem Tartrate (Ambien) 10 mg PO HS PRN PRN Reason: Insomnia Stop: 05/15/16 19:10 Last Admin: 03/20/16 20:35 Dose: 10 mg General: alert HEENT: NC/AT, PERRLA Neck: Supple Lungs: CTAB Cardiovascular: RRR, Normal S1, Normal S2, without murmur Abdomen: soft non-tender, non-distended, positive bowel sound Extremities: ulcers stage 1 Neurological: no change - Procedures Procedures: Procedures Procedure Code Date APPENDECTOMY ADD-ON 32191 08/04/15 BYPASS TRANSVERSE COLON TO CUTANEOUS, OPEN APPROACH [id number] 08/04/15 COLOSTOMY 93118 08/04/15 EXCISION OF LARGE INTESTINE, OPEN APPROACH [id number] 08/04/15 GROUP PSYCHOTHERAPY 36889 07/31/15 GROUP PSYCHOTHERAPY GZHZZZZ 07/31/15 GROUP PSYCHOTHERAPY 05755 04/02/15 GROUP PSYCHOTHERAPY GZHZZZZ 04/02/15 OTHER GROUP THERAPY 94.44 11/07/14 PARTIAL REMOVAL OF COLON 21449 08/04/15 RECREATIONAL THERAPY 93.81 02/21/10 RESECTION OF APPENDIX, OPEN APPROACH [id number] 08/04/15 Internal Medicine Assmt/Plan - Assessment Assessment: htn dyslipidemia hypothyroid dementia - Plan Plan: low fat diet monitor bp cpm
--- NOTE | 2016-03-26 01:28 | Progress Notes ---
Case was discussed with staff of the patient, reviewed records. The patient continues to be irritable, continues to be loud, and continues to need redirection. Continues to have poor insight. However in general, she is a bit calmer. She is less loud. She is following the unit rules. She is compliant with the medication with no side effects, no sedation, no nausea, and no extrapyramidal symptoms. She tolerates an increase in Zyprexa with no side effects, and we will continue to work with the patient in group therapy, milieu therapy, and adjust the medication as needed. For the covering psychiatrist, medications need to be adjusted and watched for side effects. JOB# [id number]
[2016-03-26] MEDS: Levothyroxine 0.15 Mg Tab PO SCH (05:38)
[2016-03-26] MEDS: Multivitamin w/ Minerals Tab PO SCH (09:00)
[2016-03-26] MEDS: Potassium Chloride 20 mEq ER Tab PO SCH (09:00)
--- NOTE | 2016-03-26 12:52 | Internal Medicine Prog Note ---
Internal Medicine Subjective - Subjective Patient seen and examined:: with staff, chart reviewed Patient is:: awake, interactive Patient Complaints of:: congestion Per staff patient is:: no adverse event, confused Internal Medicine Objective - Physical Exam Vitals and I&O: Vital Signs Temp 98 F 03/25/16 06:38 Pulse 93 03/26/16 09:01 Resp 18 03/25/16 20:20 BP 145/79 03/26/16 09:01 Pulse Ox 95 03/25/16 20:20 Intake & Output 03/25/16 03/26/16 03/26/16 18:59 06:59 18:59 Intake Total 900 Balance 900 Intake: Oral 900 Other: # Voids 4 # Bowel Movements 1 Stool Characteristics Soft Soft Liquid Brown Brown Active Medications: Current Medications Acetaminophen (Tylenol) 650 mg PO Q4H PRN PRN Reason: Mild Pain/Headache/T above 101 Stop: 05/15/16 19:10 Last Admin: 03/26/16 09:06 Dose: 650 mg Albuterol Sulfate (Albuterol 2.5mg/3ml Neb Ud) 2.5 mg HHN Q2HR PRN PRN Reason: Shortness of Breath Stop: 05/15/16 19:10 Ascorbic Acid (Vitamin C) 500 mg PO DAILY [facility] Stop: 05/16/16 08:59 Last Admin: 03/26/16 09:00 Dose: 500 mg Atenolol (Tenormin) 25 mg PO DAILY [facility] Stop: 05/16/16 08:59 Last Admin: 03/26/16 09:01 Dose: 25 mg Clonidine HCl (Catapres) 0.1 mg PO Q6H PRN PRN Reason: SBP >160 Stop: 05/15/16 19:35 Docusate Sodium (Colace) 100 mg PO BID [facility] Stop: 05/16/16 08:59 Last Admin: 03/26/16 08:59 Dose: 100 mg Guaifenesin (Robitussin) 200 mg PO Q4HR PRN PRN Reason: Cough or Congestion Stop: 05/15/16 19:35 Last Admin: 03/25/16 05:02 Dose: 200 mg Levothyroxine Sodium (Synthroid) 0.15 mg PO QDAC [facility] Stop: 05/16/16 06:29 Last Admin: 03/26/16 05:38 Dose: 0.15 mg Lisinopril (Zestril) 20 mg PO DAILY [facility] Stop: 05/16/16 08:59 Last Admin: 03/26/16 09:00 Dose: 20 mg Lorazepam (Ativan) 0.5 mg PO Q4HR PRN; Protocol PRN Reason: Agitation Stop: 05/16/16 13:36 Last Admin: 03/26/16 08:59 Dose: 0.5 mg Magnesium Hydroxide (Milk Of Magnesia) 30 ml PO DAILY PRN PRN Reason: Constipation Stop: 05/15/16 19:10 Meclizine HCl (Antivert) 25 mg PO DAILY PRN PRN Reason: Nausea / Vomiting Stop: 05/15/16 19:35 Olanzapine (Zyprexa) 10 mg PO DAILY [facility] PRN Reason: Protocol Stop: 05/17/16 09:47 Last Admin: 03/26/16 09:00 Dose: 10 mg Olanzapine 10 mg/ Olanzapine 2 (.5 mg) 12.5 mg PO HS [facility] Stop: 05/21/16 20:59 Last Admin: 03/25/16 20:31 Dose: 12.5 mg Potassium Chloride (Klor-Con) 20 meq PO DAILY [facility] Stop: 05/16/16 08:59 Last Admin: 03/26/16 09:00 Dose: 20 meq Sodium Chloride (Nacl Tab) 2 gm PO BID [facility] Stop: 05/16/16 08:59 Last Admin: 03/26/16 08:59 Dose: 2 gm Zolpidem Tartrate (Ambien) 10 mg PO HS PRN PRN Reason: Insomnia Stop: 05/15/16 19:10 Last Admin: 03/20/16 20:35 Dose: 10 mg General: lethargic, obese HEENT: NC/AT, PERRLA Neck: Supple, No JVD Lungs: CTAB Cardiovascular: RRR, Normal S1, Normal S2 Abdomen: soft non-tender, globular Extremities: excoriation, contracture Neurological: no change - Procedures Procedures: Procedures Procedure Code Date APPENDECTOMY ADD-ON 02710 08/04/15 BYPASS TRANSVERSE COLON TO CUTANEOUS, OPEN APPROACH [id number] 08/04/15 COLOSTOMY 50312 08/04/15 EXCISION OF LARGE INTESTINE, OPEN APPROACH [id number] 08/04/15 GROUP PSYCHOTHERAPY 01241 07/31/15 GROUP PSYCHOTHERAPY GZHZZZZ 07/31/15 GROUP PSYCHOTHERAPY 97050 04/02/15 GROUP PSYCHOTHERAPY GZHZZZZ 04/02/15 OTHER GROUP THERAPY 94.44 11/07/14 PARTIAL REMOVAL OF COLON 70991 08/04/15 RECREATIONAL THERAPY 93.81 02/21/10 RESECTION OF APPENDIX, OPEN APPROACH [id number] 08/04/15 Internal Medicine Assmt/Plan - Assessment Assessment: rectal prolapse htn dyslipidemia hypothyroid dementia noncompliant - Plan Plan: cont on bp med monitor for rectal bleed monitor h and h gerry rn
--- NOTE | 2016-03-26 21:21 | Progress Notes ---
SUBJECTIVE: The patient seen, chart reviewed, discussed with staff. The patient is currently in the hospital due to agitation, psychosis, not taking good care of herself, agitation, on [id number], the patient is still labile, screaming episodes and is somewhat aggressive at times, impulsive and unpredictable still. Dr. Kaufman has been seeing this patient and has been making appropriate medication adjustments noting that she continues to be loud, requiring a lot of redirection. She has been medication compliant, eating fairly well, but with prompting. Sleeping well, tolerating dose increase. ASSESSMENT: The patient remains labile, still irritable, loud, needing a lot of redirection and prompting. PLAN: Continue to monitor and monitor closely for any undue side effects. We will continue to adjust medications as tolerated. [facility]# [id number]
[2016-03-26] MEDS: guaiFENesin 200 MG/10 ML UDC PO PRN (22:55)
[2016-03-27] MEDS: Levothyroxine 0.15 Mg Tab PO SCH (05:53)
[2016-03-27] MEDS: Multivitamin w/ Minerals Tab PO SCH (08:58)
[2016-03-27] MEDS: Potassium Chloride 20 mEq ER Tab PO SCH (08:59)
--- NOTE | 2016-03-27 13:46 | Internal Medicine Prog Note ---
Internal Medicine Subjective - Subjective Patient seen and examined:: with staff, chart reviewed, other (problem w colostomy) Patient is:: awake, verbal, interactive Patient Complaints of:: congestion Per staff patient is:: no adverse event, confused Internal Medicine Objective - Physical Exam Vitals and I&O: Vital Signs Temp 96.8 F 03/27/16 07:04 Pulse 98 03/27/16 09:00 Resp 19 03/27/16 07:04 BP 115/65 03/27/16 09:00 Pulse Ox 95 03/27/16 07:04 Intake & Output 03/26/16 03/27/16 03/27/16 18:59 06:59 18:59 Intake Total 750 240 0 Balance 750 240 0 Intake: Oral 750 240 0 Other: # Voids 3 1 3 # Bowel Movements 2 0 Stool Characteristics Soft Soft Brown Brown Active Medications: Current Medications Acetaminophen (Tylenol) 650 mg PO Q4H PRN PRN Reason: Mild Pain/Headache/T above 101 Stop: 05/15/16 19:10 Last Admin: 03/26/16 09:06 Dose: 650 mg Albuterol Sulfate (Albuterol 2.5mg/3ml Neb Ud) 2.5 mg HHN Q2HR PRN PRN Reason: Shortness of Breath Stop: 05/15/16 19:10 Ascorbic Acid (Vitamin C) 500 mg PO DAILY [facility] Stop: 05/16/16 08:59 Last Admin: 03/27/16 08:58 Dose: 500 mg Atenolol (Tenormin) 25 mg PO DAILY [facility] Stop: 05/16/16 08:59 Last Admin: 03/27/16 09:00 Dose: 25 mg Clonidine HCl (Catapres) 0.1 mg PO Q6H PRN PRN Reason: SBP >160 Stop: 05/15/16 19:35 Docusate Sodium (Colace) 100 mg PO BID [facility] Stop: 05/16/16 08:59 Last Admin: 03/27/16 08:58 Dose: 100 mg Guaifenesin (Robitussin) 200 mg PO Q4HR PRN PRN Reason: Cough or Congestion Stop: 05/15/16 19:35 Last Admin: 03/26/16 22:55 Dose: 200 mg Levothyroxine Sodium (Synthroid) 0.15 mg PO QDAC [facility] Stop: 05/16/16 06:29 Last Admin: 03/27/16 05:53 Dose: 0.15 mg Lisinopril (Zestril) 20 mg PO DAILY [facility] Stop: 05/16/16 08:59 Last Admin: 03/27/16 08:59 Dose: 20 mg Lorazepam (Ativan) 0.5 mg PO Q4HR PRN; Protocol PRN Reason: Agitation Stop: 05/16/16 13:36 Last Admin: 03/26/16 08:59 Dose: 0.5 mg Magnesium Hydroxide (Milk Of Magnesia) 30 ml PO DAILY PRN PRN Reason: Constipation Stop: 05/15/16 19:10 Meclizine HCl (Antivert) 25 mg PO DAILY PRN PRN Reason: Nausea / Vomiting Stop: 05/15/16 19:35 Olanzapine (Zyprexa) 10 mg PO DAILY [facility] PRN Reason: Protocol Stop: 05/17/16 09:47 Last Admin: 03/27/16 08:59 Dose: 10 mg Olanzapine 10 mg/ Olanzapine 2 (.5 mg) 12.5 mg PO HS [facility] Stop: 05/21/16 20:59 Last Admin: 03/26/16 20:24 Dose: 12.5 mg Potassium Chloride (Klor-Con) 20 meq PO DAILY [facility] Stop: 05/16/16 08:59 Last Admin: 03/27/16 08:59 Dose: 20 meq Sodium Chloride (Nacl Tab) 2 gm PO BID [facility] Stop: 05/16/16 08:59 Last Admin: 03/27/16 08:58 Dose: 2 gm Zolpidem Tartrate (Ambien) 10 mg PO HS PRN PRN Reason: Insomnia Stop: 05/15/16 19:10 Last Admin: 03/20/16 20:35 Dose: 10 mg General: congested HEENT: NC/AT, PERRLA Neck: Supple Lungs: CTAB Cardiovascular: RRR, Normal S1, Normal S2 Abdomen: soft non-tender, globular, other (colostomy) Extremities: excoriation Neurological: no change - Procedures Procedures: Procedures Procedure Code Date APPENDECTOMY ADD-ON 91910 08/04/15 BYPASS TRANSVERSE COLON TO CUTANEOUS, OPEN APPROACH [id number] 08/04/15 COLOSTOMY 20204 08/04/15 EXCISION OF LARGE INTESTINE, OPEN APPROACH [id number] 08/04/15 GROUP PSYCHOTHERAPY 24665 07/31/15 GROUP PSYCHOTHERAPY GZHZZZZ 07/31/15 GROUP PSYCHOTHERAPY 89935 04/02/15 GROUP PSYCHOTHERAPY GZHZZZZ 04/02/15 OTHER GROUP THERAPY 94.44 11/07/14 PARTIAL REMOVAL OF COLON 31110 08/04/15 RECREATIONAL THERAPY 93.81 02/21/10 RESECTION OF APPENDIX, OPEN APPROACH [id number] 08/04/15 Internal Medicine Assmt/Plan - Assessment Assessment: rectal prolapse htn dyslipidemia hypothyroid dementia noncompliant colostomy - Plan Plan: cont on bp med monitor for rectal bleed monitor h and h dw rn colostomy care
--- NOTE | 2016-03-27 22:16 | Progress Notes ---
SUBJECTIVE: The patient seen, chart reviewed, discussed with staff. The patient remains symptomatic, angry, irritable, aggressive at times, yelling, screaming episodes, difficult to understand and company. The patient is with a colostomy bag. She does allow staff to change it. Still impulsive and unpredictable. Dr. Kaufman has been adjusting medications. The patient is eating with prompting. Sleeping fairly well. No overt side effects noted from the medications. ASSESSMENT: The patient remains symptomatic, irritable, labile and loud, needing a lot of redirection. PLAN: Continue to monitor, continue to adjust medications. The patient to follow up with Dr. Kaufman in the morning. JOB# [id number]
[2016-03-28] MEDS: Levothyroxine 0.15 Mg Tab PO SCH (06:18)
[2016-03-28] MEDS: Potassium Chloride 20 mEq ER Tab PO SCH (09:29)
[2016-03-28] MEDS: Multivitamin w/ Minerals Tab PO SCH (09:29)
--- NOTE | 2016-03-28 12:33 | Internal Medicine Prog Note ---
Internal Medicine Subjective - Subjective Service Date: 03/28/16 Patient seen and examined:: with staff Patient is:: awake Per staff patient is:: no adverse event Internal Medicine Objective - Physical Exam Vitals and I&O: Vital Signs Temp 97.9 F 03/28/16 06:53 Pulse 87 03/28/16 09:29 Resp 20 03/28/16 12:13 BP 133/79 03/28/16 09:29 Pulse Ox 96 03/28/16 06:53 Intake & Output 03/27/16 03/28/16 03/28/16 18:59 06:59 18:59 Intake Total 1200 480 Balance 1200 480 Intake: Oral 1200 480 Other: # Voids 4 3 # Bowel Movements 0 0 Stool Characteristics Soft Soft Soft Brown Brown Liquid Brown Active Medications: Current Medications Acetaminophen (Tylenol) 650 mg PO Q4H PRN PRN Reason: Mild Pain/Headache/T above 101 Stop: 05/15/16 19:10 Last Admin: 03/26/16 09:06 Dose: 650 mg Albuterol Sulfate (Albuterol 2.5mg/3ml Neb Ud) 2.5 mg HHN Q2HR PRN PRN Reason: Shortness of Breath Stop: 05/15/16 19:10 Ascorbic Acid (Vitamin C) 500 mg PO DAILY [facility] Stop: 05/16/16 08:59 Last Admin: 03/28/16 09:29 Dose: Not Given Atenolol (Tenormin) 25 mg PO DAILY [facility] Stop: 05/16/16 08:59 Last Admin: 03/28/16 09:29 Dose: Not Given Clonidine HCl (Catapres) 0.1 mg PO Q6H PRN PRN Reason: SBP >160 Stop: 05/15/16 19:35 Docusate Sodium (Colace) 100 mg PO BID [facility] Stop: 05/16/16 08:59 Last Admin: 03/28/16 09:29 Dose: Not Given Guaifenesin (Robitussin) 200 mg PO Q4HR PRN PRN Reason: Cough or Congestion Stop: 05/15/16 19:35 Last Admin: 03/26/16 22:55 Dose: 200 mg Levothyroxine Sodium (Synthroid) 0.15 mg PO QDAC [facility] Stop: 05/16/16 06:29 Last Admin: 03/28/16 06:18 Dose: 0.15 mg Lisinopril (Zestril) 20 mg PO DAILY [facility] Stop: 05/16/16 08:59 Last Admin: 03/28/16 09:29 Dose: Not Given Lorazepam (Ativan) 0.5 mg PO Q4HR PRN; Protocol PRN Reason: Agitation Stop: 05/16/16 13:36 Last Admin: 03/26/16 08:59 Dose: 0.5 mg Magnesium Hydroxide (Milk Of Magnesia) 30 ml PO DAILY PRN PRN Reason: Constipation Stop: 05/15/16 19:10 Meclizine HCl (Antivert) 25 mg PO DAILY PRN PRN Reason: Nausea / Vomiting Stop: 05/15/16 19:35 Olanzapine (Zyprexa) 10 mg PO DAILY [facility] PRN Reason: Protocol Stop: 05/17/16 09:47 Last Admin: 03/28/16 09:28 Dose: Not Given Olanzapine 10 mg/ Olanzapine 2 (.5 mg) 12.5 mg PO HS [facility] Stop: 05/21/16 20:59 Last Admin: 03/27/16 20:43 Dose: 12.5 mg Potassium Chloride (Klor-Con) 20 meq PO DAILY [facility] Stop: 05/16/16 08:59 Last Admin: 03/28/16 09:29 Dose: Not Given Sodium Chloride (Nacl Tab) 2 gm PO BID [facility] Stop: 05/16/16 08:59 Last Admin: 03/28/16 09:29 Dose: Not Given Zolpidem Tartrate (Ambien) 10 mg PO HS PRN PRN Reason: Insomnia Stop: 05/15/16 19:10 Last Admin: 03/20/16 20:35 Dose: 10 mg General: alert HEENT: NC/AT, PERRLA Neck: Supple Lungs: CTAB Cardiovascular: RRR, Normal S1, Normal S2, without murmur Abdomen: soft non-tender - Procedures Procedures: Procedures Procedure Code Date APPENDECTOMY ADD-ON 50828 08/04/15 BYPASS TRANSVERSE COLON TO CUTANEOUS, OPEN APPROACH [id number] 08/04/15 COLOSTOMY 52155 08/04/15 EXCISION OF LARGE INTESTINE, OPEN APPROACH [id number] 08/04/15 GROUP PSYCHOTHERAPY 61896 07/31/15 GROUP PSYCHOTHERAPY GZHZZZZ 07/31/15 GROUP PSYCHOTHERAPY 66694 04/02/15 GROUP PSYCHOTHERAPY GZHZZZZ 04/02/15 OTHER GROUP THERAPY 94.44 11/07/14 PARTIAL REMOVAL OF COLON 51898 08/04/15 RECREATIONAL THERAPY 93.81 02/21/10 RESECTION OF APPENDIX, OPEN APPROACH [id number] 08/04/15 Internal Medicine Assmt/Plan - Assessment Assessment: htn dyslipidemia hypothyroid dementia - Plan Plan: low fat diet monitor bp cpm
--- NOTE | 2016-03-29 02:58 | Progress Notes ---
Case was discussed with staff of the patient, reviewed records. The patient continues to be loud and irritable. Continues to need redirection. Unpredictable. Impulsive. Continues to need redirection. He is sleeping well and eating well. She is compliant with the medication with no side effects, no sedation, no nausea, and no extrapyramidal symptoms. We will continue to work with the patient in group therapy, milieu therapy, and adjust the medication as needed. JOB# [id number]
[2016-03-29] MEDS: Levothyroxine 0.15 Mg Tab PO SCH (06:53)
[2016-03-29] MEDS: Potassium Chloride 20 mEq ER Tab PO SCH (08:52)
[2016-03-29] MEDS: Multivitamin w/ Minerals Tab PO SCH (08:52)
--- NOTE | 2016-03-29 13:20 | Internal Medicine Prog Note ---
Internal Medicine Subjective - Subjective Service Date: 03/29/16 (patient awake, c/o bilateral leg pain. ) Patient is:: awake Per staff patient is:: no adverse event Internal Medicine Objective - Physical Exam Vitals and I&O: Vital Signs Temp 98.2 F 03/29/16 06:43 Pulse 112 03/29/16 08:54 Resp 19 03/29/16 06:43 BP 139/68 03/29/16 08:54 Pulse Ox 94 03/29/16 06:43 Intake & Output 03/28/16 03/29/16 03/29/16 18:59 06:59 18:59 Intake Total 120 Balance 120 Intake: Oral 120 Other: # Voids 1 # Bowel Movements 2 Stool Characteristics Soft Soft Liquid Liquid Brown Active Medications: Current Medications Acetaminophen (Tylenol) 650 mg PO Q4H PRN PRN Reason: Mild Pain/Headache/T above 101 Stop: 05/15/16 19:10 Last Admin: 03/26/16 09:06 Dose: 650 mg Albuterol Sulfate (Albuterol 2.5mg/3ml Neb Ud) 2.5 mg HHN Q2HR PRN PRN Reason: Shortness of Breath Stop: 05/15/16 19:10 Ascorbic Acid (Vitamin C) 500 mg PO DAILY [facility] Stop: 05/16/16 08:59 Last Admin: 03/29/16 08:52 Dose: 500 mg Atenolol (Tenormin) 25 mg PO DAILY [facility] Stop: 05/16/16 08:59 Last Admin: 03/29/16 08:54 Dose: 25 mg Clonidine HCl (Catapres) 0.1 mg PO Q6H PRN PRN Reason: SBP >160 Stop: 05/15/16 19:35 Docusate Sodium (Colace) 100 mg PO BID [facility] Stop: 05/16/16 08:59 Last Admin: 03/29/16 08:52 Dose: 100 mg Guaifenesin (Robitussin) 200 mg PO Q4HR PRN PRN Reason: Cough or Congestion Stop: 05/15/16 19:35 Last Admin: 03/26/16 22:55 Dose: 200 mg Levothyroxine Sodium (Synthroid) 0.15 mg PO QDAC [facility] Stop: 05/16/16 06:29 Last Admin: 03/29/16 06:53 Dose: 0.15 mg Lisinopril (Zestril) 20 mg PO DAILY [facility] Stop: 05/16/16 08:59 Last Admin: 03/29/16 08:53 Dose: 20 mg Lorazepam (Ativan) 0.5 mg PO Q4HR PRN; Protocol PRN Reason: Agitation Stop: 05/16/16 13:36 Last Admin: 03/29/16 08:52 Dose: 0.5 mg Magnesium Hydroxide (Milk Of Magnesia) 30 ml PO DAILY PRN PRN Reason: Constipation Stop: 05/15/16 19:10 Meclizine HCl (Antivert) 25 mg PO DAILY PRN PRN Reason: Nausea / Vomiting Stop: 05/15/16 19:35 Olanzapine (Zyprexa) 10 mg PO DAILY [facility] PRN Reason: Protocol Stop: 05/17/16 09:47 Last Admin: 03/29/16 08:52 Dose: 10 mg Olanzapine 10 mg/ Olanzapine 5 (mg) 15 mg PO HS [facility] Stop: 05/28/16 20:59 Potassium Chloride (Klor-Con) 20 meq PO DAILY [facility] Stop: 05/16/16 08:59 Last Admin: 03/29/16 08:52 Dose: 20 meq Sodium Chloride (Nacl Tab) 2 gm PO BID [facility] Stop: 05/16/16 08:59 Last Admin: 03/29/16 08:53 Dose: 2 gm Zolpidem Tartrate (Ambien) 10 mg PO HS PRN PRN Reason: Insomnia Stop: 05/15/16 19:10 Last Admin: 03/20/16 20:35 Dose: 10 mg General: alert HEENT: NC/AT, PERRLA Neck: Supple Lungs: CTAB Cardiovascular: RRR, Normal S1, Normal S2, without murmur Abdomen: soft non-tender Neurological: no change - Procedures Procedures: Procedures Procedure Code Date APPENDECTOMY ADD-ON 14626 08/04/15 BYPASS TRANSVERSE COLON TO CUTANEOUS, OPEN APPROACH [id number] 08/04/15 COLOSTOMY 21181 08/04/15 EXCISION OF LARGE INTESTINE, OPEN APPROACH [id number] 08/04/15 GROUP PSYCHOTHERAPY 36520 07/31/15 GROUP PSYCHOTHERAPY GZHZZZZ 07/31/15 GROUP PSYCHOTHERAPY 39143 04/02/15 GROUP PSYCHOTHERAPY GZHZZZZ 04/02/15 OTHER GROUP THERAPY 94.44 11/07/14 PARTIAL REMOVAL OF COLON 39017 08/04/15 RECREATIONAL THERAPY 93.81 02/21/10 RESECTION OF APPENDIX, OPEN APPROACH [id number] 08/04/15 Internal Medicine Assmt/Plan - Assessment Assessment: htn dyslipidemia hypothyroid dementia - Plan Plan: bilateral venous doppler low fat diet monitor bp cpm
[2016-03-29] MEDS: OLANZapine 10 MG, OLANZapine 5 MG PO SCH (20:57)
--- NOTE | 2016-03-30 00:41 | Progress Notes ---
Case was discussed with staff of the patient, reviewed records. The patient continues to be rambling, continues to be hard to understand, however, the staff report her yelling and screaming are not as prominent. She has been a little bit more easy to redirect. She continues to be preoccupied with her colostomy bag. She is compliant with the medication with no side effects, no sedation, no nausea, and no extrapyramidal symptoms. I will be increasing her evening dose of Zyprexa to 50 mg at bedtime and will continue to work with the patient in group therapy, milieu therapy, and adjust medication as needed. His lab work showed low sodium level of 28 and high blood sugar, low creatinine, and CBC with low lymphocyte. TSH within normal range. I will be consulting the medical doctor regarding her abnormal lab work. JOB# [id number]
[2016-03-30] MEDS: Levothyroxine 0.15 Mg Tab PO SCH ×2 (07:00→08:42)
[2016-03-30] MEDS: Multivitamin w/ Minerals Tab PO SCH ×2 (08:34→10:11)
[2016-03-30] MEDS: Potassium Chloride 20 mEq ER Tab PO SCH ×2 (08:34→10:12)
--- NOTE | 2016-03-30 12:47 | Internal Medicine Prog Note ---
Internal Medicine Subjective - Subjective Service Date: 03/30/16 (per nursing staff patient refused venous doppler yesterday, patient denies any sob or any pain on bilateral lower extremity. ) Patient seen and examined:: with staff Patient is:: awake Per staff patient is:: no adverse event Internal Medicine Objective - Physical Exam Vitals and I&O: Vital Signs Temp 97.1 F 03/30/16 06:49 Pulse 76 03/30/16 10:12 Resp 18 03/30/16 07:46 BP 135/73 03/30/16 10:12 Pulse Ox 96 03/30/16 07:46 Intake & Output 03/29/16 03/30/16 03/30/16 18:59 06:59 18:59 Intake Total 900 120 Balance 900 120 Intake: Oral 900 120 Other: # Voids 4 3 # Bowel Movements 1 0 Stool Characteristics Soft Soft Liquid Liquid Brown Active Medications: Current Medications Acetaminophen (Tylenol) 650 mg PO Q4H PRN PRN Reason: Mild Pain/Headache/T above 101 Stop: 05/15/16 19:10 Last Admin: 03/26/16 09:06 Dose: 650 mg Albuterol Sulfate (Albuterol 2.5mg/3ml Neb Ud) 2.5 mg HHN Q2HR PRN PRN Reason: Shortness of Breath Stop: 05/15/16 19:10 Ascorbic Acid (Vitamin C) 500 mg PO DAILY [facility] Stop: 05/16/16 08:59 Last Admin: 03/30/16 10:12 Dose: 500 mg Atenolol (Tenormin) 25 mg PO DAILY [facility] Stop: 05/16/16 08:59 Last Admin: 03/30/16 10:10 Dose: 25 mg Clonidine HCl (Catapres) 0.1 mg PO Q6H PRN PRN Reason: SBP >160 Stop: 05/15/16 19:35 Docusate Sodium (Colace) 100 mg PO BID [facility] Stop: 05/16/16 08:59 Last Admin: 03/30/16 10:11 Dose: 100 mg Guaifenesin (Robitussin) 200 mg PO Q4HR PRN PRN Reason: Cough or Congestion Stop: 05/15/16 19:35 Last Admin: 03/26/16 22:55 Dose: 200 mg Levothyroxine Sodium (Synthroid) 0.15 mg PO QDAC [facility] Stop: 05/16/16 06:29 Last Admin: 03/30/16 08:42 Dose: Not Given Lisinopril (Zestril) 20 mg PO DAILY [facility] Stop: 05/16/16 08:59 Last Admin: 03/30/16 10:12 Dose: 20 mg Lorazepam (Ativan) 0.5 mg PO Q4HR PRN; Protocol PRN Reason: Agitation Stop: 05/16/16 13:36 Last Admin: 03/29/16 08:52 Dose: 0.5 mg Magnesium Hydroxide (Milk Of Magnesia) 30 ml PO DAILY PRN PRN Reason: Constipation Stop: 05/15/16 19:10 Meclizine HCl (Antivert) 25 mg PO DAILY PRN PRN Reason: Nausea / Vomiting Stop: 05/15/16 19:35 Olanzapine (Zyprexa) 10 mg PO DAILY [facility] PRN Reason: Protocol Stop: 05/17/16 09:47 Last Admin: 03/30/16 08:51 Dose: 10 mg Olanzapine 10 mg/ Olanzapine 5 (mg) 15 mg PO HS [facility] Stop: 05/28/16 20:59 Last Admin: 03/29/16 20:57 Dose: 15 mg Potassium Chloride (Klor-Con) 20 meq PO DAILY [facility] Stop: 05/16/16 08:59 Last Admin: 03/30/16 10:12 Dose: 20 meq Sodium Chloride (Nacl Tab) 2 gm PO BID [facility] Stop: 05/16/16 08:59 Last Admin: 03/30/16 10:11 Dose: 2 gm General: alert HEENT: NC/AT, PERRLA Neck: Supple Lungs: CTAB Cardiovascular: RRR, Normal S1, Normal S2, without murmur Abdomen: soft non-tender, non-distended Extremities: clear - Procedures Procedures: Procedures Procedure Code Date APPENDECTOMY ADD-ON 62107 08/04/15 BYPASS TRANSVERSE COLON TO CUTANEOUS, OPEN APPROACH [id number] 08/04/15 COLOSTOMY 33678 08/04/15 EXCISION OF LARGE INTESTINE, OPEN APPROACH [id number] 08/04/15 GROUP PSYCHOTHERAPY 29592 07/31/15 GROUP PSYCHOTHERAPY GZHZZZZ 07/31/15 GROUP PSYCHOTHERAPY 49623 04/02/15 GROUP PSYCHOTHERAPY GZHZZZZ 04/02/15 OTHER GROUP THERAPY 94.44 11/07/14 PARTIAL REMOVAL OF COLON 45097 08/04/15 RECREATIONAL THERAPY 93.81 02/21/10 RESECTION OF APPENDIX, OPEN APPROACH [id number] 08/04/15 Internal Medicine Assmt/Plan - Assessment Assessment: htn dyslipidemia hypothyroid dementia - Plan Plan: [place] low fat diet monitor bp cpm
[2016-03-30 16:29] LABS: ALKALINE PHOSPHATASE 93 U/L (34-104); ANION GAP 10.1 (7.0-16.0); BILIRUBIN,TOTAL 0.3 mg/dL (0.3-1.0); BUN - UREA NITROGEN 16 mg/dL (7-25); CALCIUM SERUM 9.4 mg/dL (8.6-10.3); CARBON DIOXIDE 28.9 mEq/L (21.0-31.0); CHLORIDE 96 mEq/L (98-107); CREATININE - SERUM 0.5 mg/dL (0.6-1.2); GLUCOSE 127 mg/dL (70-105); SGOT 21 U/L (13-39); SGPT/ALT 16 U/L (7-52); SODIUM SERUM 131 mEq/L (136-145)
[2016-03-30] MEDS: OLANZapine 10 MG, OLANZapine 5 MG PO SCH (21:16)
--- NOTE | 2016-03-31 00:46 | Progress Notes ---
Case was discussed with staff of the patient, reviewed records. The patient continues to have episodes of resistibility and agitation. Continues to have poor insight, unpredictable, and impulsive. She is compliant with the medication with no side effects, no sedation, and no nausea. Tend to be rambling and no side effects with the medication, no sedation, no nausea, and no extrapyramidal symptoms. I did increase the Zyprexa dose yesterday. I will continue to work with the patient in group therapy, milieu therapy, and adjust the medication as needed. JOB# [id number]
[2016-03-31] MEDS: Levothyroxine 0.15 Mg Tab PO SCH (06:53)
[2016-03-31] MEDS: Multivitamin w/ Minerals Tab PO SCH (10:02)
[2016-03-31] MEDS: Potassium Chloride 20 mEq ER Tab PO SCH (10:02)
--- NOTE | 2016-03-31 15:06 | Internal Medicine Prog Note ---
Internal Medicine Subjective - Subjective Service Date: 03/31/16 Patient seen and examined:: with staff Patient is:: awake Per staff patient is:: no adverse event Internal Medicine Objective - Results Result Diagrams: 03/30/16 15:46 Recent Labs: Laboratory Last Values D-Dimer 585 ng/mL (100-400) H 03/30/16 15:46 Sodium 131 mEq/L (136-145) L 03/30/16 15:46 Potassium 4.0 mEq/L (3.5-5.1) 03/30/16 15:46 Chloride 96 mEq/L (98-107) L 03/30/16 15:46 Carbon Dioxide 28.9 mEq/L (21.0-31.0) 03/30/16 15:46 Anion Gap 10.1 (7.0-16.0) 03/30/16 15:46 BUN 16 mg/dL (7-25) 03/30/16 15:46 Creatinine 0.5 mg/dL (0.6-1.2) L 03/30/16 15:46 Est GFR ( Amer) TNP 03/30/16 15:46 Est GFR (Non-Af Amer) TNP 03/30/16 15:46 BUN/Creatinine Ratio 32.0 03/30/16 15:46 Glucose 127 mg/dL (70-105) H 03/30/16 15:46 Calcium 9.4 mg/dL (8.6-10.3) 03/30/16 15:46 Total Bilirubin 0.3 mg/dL (0.3-1.0) 03/30/16 15:46 AST 21 U/L (13-39) 03/30/16 15:46 ALT 16 U/L (7-52) 03/30/16 15:46 Alkaline Phosphatase 93 U/L (34-104) 03/30/16 15:46 Total Protein 7.7 gm/dL (6.0-8.3) 03/30/16 15:46 Albumin 3.9 gm/dL (3.7-5.3) 03/30/16 15:46 Globulin 3.8 gm/dL 03/30/16 15:46 Albumin/Globulin Ratio 1.0 (1.0-1.8) 03/30/16 15:46 - Physical Exam Vitals and I&O: Vital Signs Temp 98.3 F 03/31/16 06:46 Pulse 74 03/31/16 10:01 Resp 20 03/31/16 08:00 BP 115/61 03/31/16 10:01 Pulse Ox 95 03/31/16 07:23 Intake & Output 03/30/16 03/31/16 03/31/16 18:59 06:59 18:59 Intake Total 900 Balance 900 Intake: Oral 900 Other: # Voids 4 2 # Bowel Movements 0 2 Stool Characteristics Soft Soft Liquid Liquid Brown Brown Green Active Medications: Current Medications Acetaminophen (Tylenol) 650 mg PO Q4H PRN PRN Reason: Mild Pain/Headache/T above 101 Stop: 05/15/16 19:10 Last Admin: 03/26/16 09:06 Dose: 650 mg Albuterol Sulfate (Albuterol 2.5mg/3ml Neb Ud) 2.5 mg HHN Q2HR PRN PRN Reason: Shortness of Breath Stop: 05/15/16 19:10 Ascorbic Acid (Vitamin C) 500 mg PO DAILY [facility] Stop: 05/16/16 08:59 Last Admin: 03/31/16 10:01 Dose: Not Given Atenolol (Tenormin) 25 mg PO DAILY [facility] Stop: 05/16/16 08:59 Last Admin: 03/31/16 10:02 Dose: Not Given Clonidine HCl (Catapres) 0.1 mg PO Q6H PRN PRN Reason: SBP >160 Stop: 05/15/16 19:35 Docusate Sodium (Colace) 100 mg PO BID [facility] Stop: 05/16/16 08:59 Last Admin: 03/31/16 09:59 Dose: 100 mg Guaifenesin (Robitussin) 200 mg PO Q4HR PRN PRN Reason: Cough or Congestion Stop: 05/15/16 19:35 Last Admin: 03/26/16 22:55 Dose: 200 mg Levothyroxine Sodium (Synthroid) 0.15 mg PO QDAC [facility] Stop: 05/16/16 06:29 Last Admin: 03/31/16 06:53 Dose: 0.15 mg Lisinopril (Zestril) 20 mg PO DAILY [facility] Stop: 05/16/16 08:59 Last Admin: 03/31/16 10:01 Dose: Not Given Lorazepam (Ativan) 0.5 mg PO Q4HR PRN; Protocol PRN Reason: Agitation Stop: 05/16/16 13:36 Last Admin: 03/29/16 08:52 Dose: 0.5 mg Magnesium Hydroxide (Milk Of Magnesia) 30 ml PO DAILY PRN PRN Reason: Constipation Stop: 05/15/16 19:10 Meclizine HCl (Antivert) 25 mg PO DAILY PRN PRN Reason: Nausea / Vomiting Stop: 05/15/16 19:35 Olanzapine (Zyprexa) 10 mg PO DAILY [facility] PRN Reason: Protocol Stop: 05/17/16 09:47 Last Admin: 03/31/16 09:58 Dose: 10 mg Olanzapine 10 mg/ Olanzapine 5 (mg) 15 mg PO HS [facility] Stop: 05/28/16 20:59 Last Admin: 03/30/16 21:16 Dose: 15 mg Potassium Chloride (Klor-Con) 20 meq PO DAILY [facility] Stop: 05/16/16 08:59 Last Admin: 03/31/16 10:02 Dose: Not Given Sodium Chloride (Nacl Tab) 2 gm PO BID [facility] Stop: 05/16/16 08:59 Last Admin: 03/31/16 09:59 Dose: 2 gm General: alert HEENT: NC/AT, PERRLA Neck: Supple Lungs: CTAB Cardiovascular: RRR, Normal S1, Normal S2, without murmur, other Abdomen: soft non-tender - Procedures Procedures: Procedures Procedure Code Date APPENDECTOMY ADD-ON 25928 08/04/15 BYPASS TRANSVERSE COLON TO CUTANEOUS, OPEN APPROACH [id number] 08/04/15 COLOSTOMY 51819 08/04/15 EXCISION OF LARGE INTESTINE, OPEN APPROACH [id number] 08/04/15 GROUP PSYCHOTHERAPY 58028 07/31/15 GROUP PSYCHOTHERAPY GZHZZZZ 07/31/15 GROUP PSYCHOTHERAPY 91954 04/02/15 GROUP PSYCHOTHERAPY GZHZZZZ 04/02/15 OTHER GROUP THERAPY 94.44 11/07/14 PARTIAL REMOVAL OF COLON 64006 08/04/15 RECREATIONAL THERAPY 93.81 02/21/10 RESECTION OF APPENDIX, OPEN APPROACH [id number] 08/04/15 Internal Medicine Assmt/Plan - Assessment Assessment: htn dyslipidemia hypothyroid dementia - Plan Plan: low fat diet monitor bp cpm
--- NOTE | 2016-03-31 19:11 | Discharge Summary ---
IDENTIFYING INFORMATION: The patient is a 75-year-old female. REASON FOR THE ADMISSION: Referred from [facility] because of agitation, out of control behavior, she was psychotic, delusional, loud, playing with her feces and colostomy bag and was very unpredictable, impulsive and very poor historian. She has multiple prior admissions to this facility for similar reasons. COURSE IN THE HOSPITAL: The patient was continued on medication prior to admission, she was on levothyroxine, lisinopril and meclizine as needed and multivitamins, olanzapine was restarted, which she used to be on, increased the dose over the course of stay, 10 mg in the morning and 50 mg at bedtime. She was continued with sodium chloride, potassium chloride and clonidine by the medical doctor and Sheila. The patient progressively got better. She was no longer acting psychotic. She was sleeping well, eating well. She was not having any side effects with the medications. So as she improved, she was calm, cooperative, responding well to the redirection, we felt she could be discharged to a lesser level of care. FINAL DIAGNOSES: AXIS I: Schizoaffective disorder. MEDICAL DIAGNOSES: Deferred to the medical doctor. The patient will be going back to [facility] with followup with ____ there and the primary care physician will see her there. EXPECTED OUTCOME: Stable if the patient complies with the above. JOB# [id number]
== END 2016-03-31 18:00 | DRG 885 ==
LOC: GERO 16:20
PROVIDERS: ADMIT Psychiatry & Neurology Psychiatry; ATTEND Psychiatry & Neurology Psychiatry
DX: F25.0 Schizoaffective disorder, bipolar type (principal); F03.90 Unspecified dementia, unspecified severity, without behavioral disturbance, psychotic disturbance, mood disturbance, and anxiety; E87.1 Hypo-osmolality and hyponatremia; F31.9 Bipolar disorder, unspecified; I10 Essential (primary) hypertension; E78.5 Hyperlipidemia, unspecified; E03.9 Hypothyroidism, unspecified; K62.3 Rectal prolapse; Z91.14 Patient's other noncompliance with medication regimen
CPT/HCPCS: 36415-UA; 80053-TC; 85379-TC; 90899; 94760; G0410; J1200; J1630; J2060; J7051; Z7610

== ENCOUNTER 2016-08-30 13:55 | Inpatient (IN) | payer MEDICARE, MEDICAID ==
--- NOTE | 2016-08-30 14:11 | ED Physician Chart ---
Chief Complaint/HPI - Patient Information Date Seen:: 08/30/16 Time Seen:: 14:00 Chief Complaint:: Agitation History of Present Illness:: Onset x 2 days of agitation, skin scratching, uncontrolled behavior, non- compliance and uncooperative behavior; no report of H/As, neck pain, C/P, dyspnea, Abd. pain, ALOC, LOC, AMS,; no SIs Allergies:: Allergies Allergy/AdvReac Type Severity Reaction Status Date / Time No Known Allergies Allergy Unverified 08/25/15 15:20 Historian:: Patient Review:: Nurse's Note Reviewed, EMS run form Reviewed Review of Systems - Review of Systems General/Constitutional: Fever, Chills, No weight loss, Weakness, No diaphoresis , No edema, No loss of appetite Skin: Skin lesions, Rash, No bruising Head: No headache, No light-headedness Eyes: No loss of vision, No pain, No diplopia ENT: No earache, No nasal drainage, No sore throat, No tinnitus Neck: No neck pain, No swelling, Thyromegaly, No stiffness, No mass noted Cardio Vascular: Chest pain, Palpitations, PND, orthopnea, edema Pulmonary: SOB, Cough, No sputum, No wheezing GI: Nausea, Vomiting, Diarrhea, Pain, No melena, No hematochezia, Constipation, No hematemesis G/U: No dysuria, No frequency, No hematuria Core Feeder: No vaginal discharge, No abnormal vaginal bleed, No contraction Musculoskeletal: No bone or joint pain, No back pain, No muscle pain Endocrine: No polyuria, No polydipsia Psychiatric: Prior psych history, Depression, Anxiety, No suicidal ideation, Auditory hallucination, Visual hallucination Hematopoietic: No bruising, No lymphadenopathy Allergic/Immuno: No urticaria, No angioedema Neurological: No syncope, No focal symptoms, Weakness, No paresthesia, No headache, No seizure, No dizziness, Confusion, No vertigo Past Medical History - Past Medical History Obtainable: Yes Past Medical History: HTN, CAD, CHF, PUD/GERD, Thyroid disorder Social History: Non Smoker, No Alcohol, No Drug Use, Single, Care Facility Surgical History: other (Colostomy) Psychiatricy History: Schizophrenia, Bipolar Medication: Reviewed Family Medical History - Family Member Mother History Unknown: Yes Physical Exam - Physical Examination General/Constitutional: Awake, Well-developed, well-nourished, Alert, No distress, GCS 15, Non-toxic appearing, Ambulatory Head: Atraumatic Eyes: Lids, conjuctiva normal, PERRL, EOMI Skin: Nl inspection, No rash, No skin lesions, No ecchymosis, Well hydrated, No lymphadenopathy ENMT: External ears, nose nl, Nasal exam nl, Lips, teeth, gums nl Neck: Nontender, Full ROM w/o pain, No JVD, No nuchal rigidity, No bruit, No mass, No stridor Respiratory: Nl effort/Exclusion, Clear to Auscultation, No Wheeze/Rhonchi/Rales Cardio Vascular: RRR, No murmur, gallop, rubs, NL S1 S2 GI: No tenderness/rebounding/guarding, No organomegaly, No hernia, Normal BS's, Nondistended, No mass/bruits, No McBurney tenderness : No CVA tenderness Extremities: No tenderness or effusion, Full ROM, normal strength in all extremities, No edema, Normal digits & nails Neuro/Psych: Alert/oriented, DTR's symmetric, Normal sensory exam, Normal motor strength, Judgement/insight normal, Mood normal, Normal gait, No focal deficits Other Neuro/Psych comments:: + Psychomotor Agitation; no SIs, hallucinations, or delusions; Mood/Affect: Labile Misc: normal gait, Normal back, No paraspinal tenderness Labs/Radiology/EKG Results - Lab Results Results: U/A: + Leukocytes, WBCs, Bacteria' Na+: 121; Cl-: 91 ED Septic Shock - . Is Septic Shock (SBP<90, OR Lactate>4 mmol\L) present?: No Reassessment (Disposition) - Reassessment Reassessment Condition:: Improved - Diagnosis Diagnosis:: Agitation; UTI; Hyponatremia; Psychomotor Agitation; Schizo-Affective Disorder - Aftercare/Follow up Instructions Aftercare/Follow-Up Instructions:: Counseled pt regarding lab results/diagnosis & need follow up, Counseled pt & family regarding lab results/diagnosis & need follow up - Patient Disposition Admitted to:: [facility] Spoke to:: Dr. Sales Admitting Medical Physician:: Dr. Sales Admitting Psych Physician:: Dr. Kaufman Time:: 15:00 Condition at Disposition:: Stable, Improved ED Discharge Plan - Patient Disposition Instructions: Psychosis
[2016-08-30 14:21] LABS: % BASOPHILS 0.8 % (0.0-2.0); % EOSINOPHILS 1.7 % (0.0-5.0); % MONOCYTES 7.8 % (2.0-10.0); % NEUTROPHILS 65.7 % (40.0-80.0); HEMATOCRIT 35.6 % (35.0-45.0); HEMOGLOBIN 12.2 gm/dL (11.7-16.1); MEAN CELL VOLUME 82.4 fl (81-100); MEAN CORPUSCULAR HEMOGLOBIN 28.2 pg (27.0-31.0); MEAN CORPUSCULAR HGB CONC 34.2 pg (28.0-36.0); MEAN PLATELET VOLUME 6.7 fl; NEUTROPHILE ABSOLUTE 5.4 Th/cmm (1.8-8.0); RED BLOOD COUNT 4.32 Mil/cmm (3.80-5.20); RED CELL DISTRIBUTION WIDTH 13.5 % (11.5-20.0); WHITE BLOOD COUNT 8.1 Th/cmm (4.8-10.8)
[2016-08-30 14:23] LABS: PLATELET COUNT 370 Th/cmm (150-400)
[2016-08-30 14:36] LABS: ALB/GLOB RATIO 1.3 (1.0-1.8); ALKALINE PHOSPHATASE 89 U/L (34-104); ANION GAP 8.1 (7.0-16.0); BILIRUBIN,TOTAL 0.3 mg/dL (0.3-1.0); BUN - UREA NITROGEN 8 mg/dL (7-25); CALCIUM SERUM 9.5 mg/dL (8.6-10.3); CARBON DIOXIDE 26.2 mEq/L (21.0-31.0); CHLORIDE 91 mEq/L (98-107); CREATININE - SERUM 0.5 mg/dL (0.6-1.2); GLUCOSE 153 mg/dL (70-105); LIPASE 22 U/L (11-82); POTASSIUM SERUM 4.3 mEq/L (3.5-5.1); SGOT 21 U/L (13-39); SGPT/ALT 17 U/L (7-52); SODIUM SERUM 121 mEq/L (136-145)
[2016-08-30 14:40] LABS: ACETAMINOPHEN < 10.0 ug/mL (10.0-30.0)
[2016-08-30 14:49] LABS: URINE BACTERIA 1+ /hpf (NONE SEEN); URINE BILIRUBIN NEGATIVE (NEGATIVE); URINE BLOOD TRACE (NEGATIVE); URINE COLOR YELLOW; URINE EPITHELIAL CELLS OCCASIONAL /lpf (FEW); URINE GLUCOSE (UA) NEGATIVE (NEGATIVE); URINE KETONE NEGATIVE (NEGATIVE); URINE PH 6.5; URINE PROTEIN NEGATIVE (NEGATIVE); URINE UROBILINOGEN 0.2 E.U./dL (0.2 - 1.0)
[2016-08-30 14:50] LABS: URINE WBC 25-50 /hpf (0-5)
[2016-08-30 14:51] LABS: AMPHETAMINE URINE NEGATIVE (NEGATIVE); BARBITURATES URINE NEGATIVE (NEGATIVE); METHADONE URINE NEGATIVE (NEGATIVE)
[2016-08-30 18:58] VITALS: BP 141/95
[2016-08-30] MEDS ORDERED: Magnesium Hydroxide (MOM) 30 mL UDC PO PRN ×2 (20:51→23:26)
--- NOTE | 2016-08-30 23:30 | Admit Criteria Form ---
Addendum entered and electronically signed by Juan Daniel Lopez 08/31/16 00: 01: Addendum entered and electronically signed by Juan Daniel Lopez 08/30/16 23: 52: Original Note: Admit Criteria Forms - Admit Criteria Diagnosis: PSYCHIATRIC DISORDERS Clinical Indications for Inpatient Care (Place 'X' for any and all applicable criteria): Ongoing inpatient care may be needed for ANY ONE of the following(1)(2)(3)(4)(6) (7)(8): [ ]I. Danger to self or others not manageable at lower level of care. [ ]II. Grave disability (eg, inability to perform self care necessary at lower level of care) [X]III. Agitation or inappropriate behavior interfering with care for primary condition (eg, attempting to discontinue lines or drains prematurely, unable to cooperate with respiratory care) [ ]IV. Severe disability or disorder indicated by ALL of the following: [ ]a) Severe behavioral health disorder-related symptoms or condition indicated by ANY ONE of the following: [ ]i) Severe problem with cognition, memory, judgment, or impulse control [ ]ii) Severe clinical manifestations (eg, hallucinations, delusions, other acute psychotic symptoms, nik, extreme agitation or anxiety) [ ]b) Patient management at lower level of care is not feasible until acute intervention or modification is initiated. Extended stay beyond goal length of stay for the primary condition may be indicated when ANY ONE of the following is present: (1)(2)(3)(4): [ ]a) Patient is a danger to self or others and not manageable at lower level of care. [ ]b) Behavior crisis management, including physical or chemical restraints, is required and is not available at a lower level of care. [ ]c) Behavioral symptoms (e.g., agitation, somnolence, inappropriate behavior) are present, and are not manageable at a lower level of care. [ ]d) Patient cannot understand follow-up treatment and crisis plan. [ ]e) Provider and supports are not sufficiently available at lower level of care. [ ]f) Patient cannot participate (e.g., verify absence of plan for harm) and is in needed of monitoring. The [facility] content created by [facility] has been revised. The portions of the content which have been revised are identified through the use of italic text or in bold, and [facility] has neither reviewed nor approved the modified material. All other unmodified content is copyright [facility]. Please see references footnoted in the original [facility] edition 2016 Admit Criteria Met?: Yes
--- NOTE | 2016-08-31 02:52 | History & Physical ---
ADMIT DATE: 08/30/2016 HISTORY OF PRESENT ILLNESS: This is a 76-year-old female well known to my service from previous admissions, history of dementia, hypertension, hypothyroidism, status post colostomy secondary to hernia and rectal prolapse repair. The patient was admitted under the service of Dr. Kaufman. The patient is not a best historian. Denies chest pains or shortness of breath. PAST MEDICAL HISTORY: As mentioned in history of present illness. PAST SURGICAL HISTORY: As mentioned above. ALLERGIES: No known drug allergies. MEDICATIONS: Tylenol, Colace, Synthroid, lisinopril, magnesium, potassium, and sodium chloride. FAMILY HISTORY: Noncontributory. SOCIAL HISTORY: The patient is an avid smoker and used to drink. The patient is a halfway patient for several years. REVIEW OF SYSTEMS: This is limited secondary to the patient's current mental state. The patient also had lesion/trauma in the tongue. The patient was difficult to understand. We will try to get more information from nursing staff at [place] at ____ as well as ____ who follows the patient for psychiatry at the facility. PHYSICAL EXAMINATION: VITAL SIGNS: Blood pressure 121/____, respiratory rate 20, pulse ____, temperature 98.5. GENERAL: Elderly female, appears her stated age. NECK: Supple. No mass. LUNGS: Decreased breath sounds with few rhonchi. HEART: Regular rate and rhythm with systolic ejection murmur. ABDOMEN: Soft, nontender, globular. Positive colostomy. EXTREMITIES: Positive excoriation and atrophy. NEUROLOGIC: Limited. LABORATORY DATA: WBC 8.1, hemoglobin 12, platelets ____. Sodium 121, potassium 4.3, BUN 8, creatinine ____, blood sugar ____. TSH 1.1. UA 50 wbc's, large leukocytes. ASSESSMENT: Urinary tract infection, hyponatremia, hypertension, hypothyroidism, dementia, status post colostomy, rectal prolapse repair, and hernia repair. PLAN: Continue the patient on IV antibiotic and continue ____ as well as Synthroid. ____ Continue colostomy care. We will continue to follow with you Dr. Kaufman. JOB# [id number]
[2016-08-31] MEDS: Levothyroxine 0.125 Mg Tab PO SCH (06:31)
[2016-08-31] MEDS ORDERED: Levothyroxine 0.125 Mg Tab PO SCH (07:30)
[2016-08-31] MEDS ORDERED: Multivitamin w/ Minerals Tab PO SCH (09:00)
[2016-08-31] MEDS ORDERED: Potassium Chloride 20 mEq ER Tab PO SCH (09:00)
[2016-08-31] MEDS: Multivitamin w/ Minerals Tab PO SCH (09:58)
--- NOTE | 2016-08-31 10:57 | Psychosocial Evaluation ---
DATE OF SERVICE: 08/30/2016 IDENTIFYING INFORMATION: The patient is a 76-year-old female. CHIEF COMPLAINT: No answer. HISTORY OF PRESENT ILLNESS: The patient referred from [place] because of agitation, psychosis. Actually when I saw her a few days ago at [place], she was very agitated, refused to talk to me, turned her head away from me, so we will not talk while she was eating. When I talked to her today, she was rambling, at times she tried to pull up her colostomy bag ____. The patient has been agitated, irritable, labile, unpredictable, impulsive, ____ her psychotropic medication has been tapered. The patient was not answering any of my questions. PAST MEDICAL HISTORY: The patient has colostomy bag. She has no known drug allergies. There is a hole in her mouth, hypertension. She is on antibiotic, chronic constipation, hypothyroidism. PAST PSYCHIATRIC HISTORY: The patient has multiple prior admissions to this facility for similar reasons. Has a long history of mental illness, agitation, poor insight, psychosis. FAMILY AND SOCIAL HISTORY: Please refer to old records. MENTAL STATUS EXAMINATION: The patient is appropriately dressed, not very well groomed. She looked disheveled, disorganized, internally preoccupied, unable to participate in a meaningful conversation or make safe plan for self-care. Rambling speech, unable to tell me the date, where she is, why she is here and also very hard to understand, appears to be depressed and irritable, sad. Her long and short term memory was poor because of psychosis. Her insight and judgment is impaired. IMPRESSION: AXIS I: Major depression, recurrent with psychosis, rule out schizoaffective disorder. MEDICAL DIAGNOSIS: Deferred to the medical doctor. Her assets, she is accepting treatment. Negative poor coping skills. INITIAL TREATMENT PLAN: The patient will be started back on Zyprexa and Lexapro and we will do group therapy, milieu therapy, individual therapy. ESTIMATED LENGTH OF STAY: 3-7 days. DISCHARGE CRITERIA: Decreasing psychosis, agitation, depression after discharge, outpatient treatment. [facility]# [id number]
--- NOTE | 2016-08-31 14:49 | Internal Medicine Prog Note ---
Internal Medicine Subjective - Subjective Patient seen and examined:: with staff, chart reviewed Patient is:: awake, verbal, interactive Patient Complaints of:: congestion Per staff patient is:: no adverse event, no episodes of fall, unstable gait, agitated, combative, noncompliant, confused Internal Medicine Objective - Results Result Diagrams: 08/30/16 14:15 08/30/16 14:15 Recent Labs: Laboratory Last Values WBC 8.1 Th/cmm (4.8-10.8) 08/30/16 14:15 RBC 4.32 Mil/cmm (3.80-5.20) 08/30/16 14:15 Hgb 12.2 gm/dL (11.7-16.1) 08/30/16 14:15 Hct 35.6 % (35.0-45.0) 08/30/16 14:15 MCV 82.4 fl (81-100) 08/30/16 14:15 MCH 28.2 pg (27.0-31.0) 08/30/16 14:15 MCHC Differential 34.2 pg (28.0-36.0) 08/30/16 14:15 RDW 13.5 % (11.5-20.0) 08/30/16 14:15 Plt Count 370 Th/cmm (150-400) D 08/30/16 14:15 MPV 6.7 fl 08/30/16 14:15 Neutrophils % 65.7 % (40.0-80.0) 08/30/16 14:15 Lymphocytes % 24.0 % (20.0-50.0) 08/30/16 14:15 Monocytes % 7.8 % (2.0-10.0) 08/30/16 14:15 Eosinophils % 1.7 % (0.0-5.0) 08/30/16 14:15 Basophils % 0.8 % (0.0-2.0) 08/30/16 14:15 Sodium 121 mEq/L (136-145) L 08/30/16 14:15 Potassium 4.3 mEq/L (3.5-5.1) 08/30/16 14:15 Chloride 91 mEq/L (98-107) L 08/30/16 14:15 Carbon Dioxide 26.2 mEq/L (21.0-31.0) 08/30/16 14:15 Anion Gap 8.1 (7.0-16.0) 08/30/16 14:15 BUN 8 mg/dL (7-25) 08/30/16 14:15 Creatinine 0.5 mg/dL (0.6-1.2) L 08/30/16 14:15 Est GFR ( Amer) TNP 08/30/16 14:15 Est GFR (Non-Af Amer) TNP 08/30/16 14:15 BUN/Creatinine Ratio 16.0 08/30/16 14:15 Glucose 153 mg/dL (70-105) H 08/30/16 14:15 Calcium 9.5 mg/dL (8.6-10.3) 08/30/16 14:15 Total Bilirubin 0.3 mg/dL (0.3-1.0) 08/30/16 14:15 GGTP 17 IU/L (0-60) 08/30/16 14:15 AST 21 U/L (13-39) 08/30/16 14:15 ALT 17 U/L (7-52) 08/30/16 14:15 Alkaline Phosphatase 89 U/L (34-104) 08/30/16 14:15 Total Protein 7.3 gm/dL (6.0-8.3) 08/30/16 14:15 Albumin 4.1 gm/dL (3.7-5.3) 08/30/16 14:15 Globulin 3.2 gm/dL 08/30/16 14:15 Albumin/Globulin Ratio 1.3 (1.0-1.8) 08/30/16 14:15 Lipase 22 U/L (11-82) 08/30/16 14:15 TSH 1.19 uIU/ml (0.34-5.60) 08/30/16 14:15 Urine Source CLEAN C 08/30/16 14:00 Urine Color YELLOW 08/30/16 14:00 Urine Clarity SLIGHT HAZY (CLEAR) 08/30/16 14:00 Urine pH 6.5 08/30/16 14:00 Ur Specific [place] 1.015 (1.005-1.030) 08/30/16 14:00 Urine Protein NEGATIVE mg/dL (NEGATIVE) 08/30/16 14:00 Urine Glucose (UA) NEGATIVE mg/dL (NEGATIVE) 08/30/16 14:00 Urine Ketones NEGATIVE mg/dL (NEGATIVE) 08/30/16 14:00 Urine Blood TRACE (NEGATIVE) 08/30/16 14:00 Urine Nitrate NEGATIVE (NEGATIVE) 08/30/16 14:00 Urine Bilirubin NEGATIVE (NEGATIVE) 08/30/16 14:00 Urine Urobilinogen 0.2 E.U./dL (0.2 - 1.0) 08/30/16 14:00 Ur Leukocyte Esterase LARGE (NEGATIVE) H 08/30/16 14:00 Urine RBC 2-5 /hpf (0-5) 08/30/16 14:00 Urine WBC 25-50 /hpf (0-5) H 08/30/16 14:00 Ur Epithelial Cells OCCASIONAL /lpf (FEW) 08/30/16 14:00 Urine Bacteria 1+ /hpf (NONE SEEN) H 08/30/16 14:00 Salicylates < 25.0 mg/L (30.0-100.0) L 08/30/16 14:15 Urine Opiates Screen NEGATIVE (NEGATIVE) 08/30/16 14:00 Urine Methadone Screen NEGATIVE (NEGATIVE) 08/30/16 14:00 Acetaminophen < 10.0 ug/mL (10.0-30.0) L 08/30/16 14:15 Ur Barbiturates Screen NEGATIVE (NEGATIVE) 08/30/16 14:00 Ur Tricyclics Screen NEGATIVE (NEGATIVE) 08/30/16 14:00 Ur Phencyclidine Scrn NEGATIVE (NEGATIVE) 08/30/16 14:00 Amphetamines Screen NEGATIVE (NEGATIVE) 08/30/16 14:00 U Methamphetamines Scrn NEGATIVE (NEGATIVE) 08/30/16 14:00 U Benzodiazepines Scrn NEGATIVE (NEGATIVE) 08/30/16 14:00 U Cocaine Metab Screen NEGATIVE (NEGATIVE) 08/30/16 14:00 U Cannabinoids Screen NEGATIVE (NEGATIVE) 08/30/16 14:00 Ethyl Alcohol < 10 mg/dL (0-10) 08/30/16 14:15 - Physical Exam Vitals and I&O: Vital Signs Temp 97.6 F 08/31/16 05:19 Pulse 89 08/31/16 09:58 Resp 19 08/31/16 05:19 BP 142/80 08/31/16 09:58 Pulse Ox 96 08/31/16 05:19 Intake & Output 08/30/16 08/31/16 08/31/16 18:59 06:59 18:59 Intake Total 240 Balance 240 Weight (lbs) 79.832 kg Intake: Oral 240 Other: # Voids 2 # Bowel Movements 1 Stool Characteristics Soft Active Medications: Current Medications Acetaminophen (Tylenol) 650 mg PO Q4H PRN PRN Reason: PAIN Stop: 10/29/16 23:25 Ascorbic Acid (Vitamin C) 500 mg PO DAILY [facility] Stop: 10/30/16 08:59 Last Admin: 08/31/16 09:58 Dose: 500 mg Atenolol (Tenormin) 25 mg PO DAILY [facility] Stop: 10/30/16 08:59 Last Admin: 08/31/16 09:57 Dose: 25 mg Docusate Sodium (Colace) 100 mg PO BID [facility] Stop: 10/30/16 08:59 Last Admin: 08/31/16 09:59 Dose: Not Given Escitalopram Oxalate (Lexapro) 5 mg PO DAILY [facility] PRN Reason: Protocol Stop: 10/31/16 08:59 Levofloxacin (Levaquin) 500 mg PO DAILY [facility] Stop: 10/31/16 08:59 Levothyroxine Sodium (Synthroid) 0.125 mg PO QDAC [facility] Stop: 10/30/16 07:29 Last Admin: 08/31/16 06:31 Dose: 0.125 mg Lisinopril (Zestril) 20 mg PO DAILY [facility] Stop: 10/30/16 08:59 Last Admin: 08/31/16 09:58 Dose: 20 mg Magnesium Hydroxide (Milk Of Magnesia) 30 ml PO DAILY PRN PRN Reason: Constipation Stop: 10/29/16 23:25 Olanzapine (Zyprexa) 5 mg PO DAILY [facility] PRN Reason: Protocol Stop: 10/31/16 08:59 Sodium Chloride (Nacl Tab) 1 gm PO TID [facility] Stop: 10/30/16 20:59 General: demented HEENT: NC/AT, PERRLA Neck: Supple, No JVD Lungs: CTAB Cardiovascular: RRR, Normal S1, Normal S2 Abdomen: soft non-tender, globular, positive bowel sound, other (colostomy) Extremities: excoriation, contracture Neurological: no change, disorganized, unable to follow command - Procedures Procedures: Procedures Procedure Code Date APPENDECTOMY ADD-ON 12990 08/04/15 BYPASS TRANSVERSE COLON TO CUTANEOUS, OPEN APPROACH [id number] 08/04/15 COLOSTOMY 00816 08/04/15 EXCISION OF LARGE INTESTINE, OPEN APPROACH [id number] 08/04/15 GROUP PSYCHOTHERAPY 21945 07/31/15 GROUP PSYCHOTHERAPY [id number] 07/31/15 GROUP PSYCHOTHERAPY 88285 04/02/15 GROUP PSYCHOTHERAPY GZHZZZZ 04/02/15 OTHER GROUP THERAPY 94.44 11/07/14 PARTIAL REMOVAL OF COLON 04155 08/04/15 RECREATIONAL THERAPY 93.81 02/21/10 RESECTION OF APPENDIX, OPEN APPROACH [id number] 08/04/15 Internal Medicine Assmt/Plan - Assessment Assessment: Urinary tract infection, hyponatremia, hypertension, hypothyroidism, dementia, status post colostomy, rectal prolapse repair, and hernia repair. - Plan Plan: cont on antibiotic cont on nacl fall precaution monitor na level gerry bourne
[2016-09-01] MEDS: Levothyroxine 0.125 Mg Tab PO SCH (06:33)
[2016-09-01] MEDS ORDERED: Haloperidol Lactate 5 mg/mL 1mL Vial ONE (07:41)
[2016-09-01] MEDS ORDERED: Haloperidol Lactate 5 mg/mL 1mL Vial IM STA (07:42)
[2016-09-01] MEDS: Escitalopram Oxalate 5 mg Tab PO SCH (11:17)
[2016-09-01] MEDS: Multivitamin w/ Minerals Tab PO SCH (11:19)
--- NOTE | 2016-09-01 13:35 | Internal Medicine Prog Note ---
Internal Medicine Subjective - Subjective Patient seen and examined:: with staff, chart reviewed Patient is:: awake, verbal, interactive Patient Complaints of:: congestion Per staff patient is:: no adverse event, noncompliant, confused Internal Medicine Objective - Results Result Diagrams: 08/30/16 14:15 08/30/16 14:15 Recent Labs: Laboratory Last Values WBC 8.1 Th/cmm (4.8-10.8) 08/30/16 14:15 RBC 4.32 Mil/cmm (3.80-5.20) 08/30/16 14:15 Hgb 12.2 gm/dL (11.7-16.1) 08/30/16 14:15 Hct 35.6 % (35.0-45.0) 08/30/16 14:15 MCV 82.4 fl (81-100) 08/30/16 14:15 MCH 28.2 pg (27.0-31.0) 08/30/16 14:15 MCHC Differential 34.2 pg (28.0-36.0) 08/30/16 14:15 RDW 13.5 % (11.5-20.0) 08/30/16 14:15 Plt Count 370 Th/cmm (150-400) D 08/30/16 14:15 MPV 6.7 fl 08/30/16 14:15 Neutrophils % 65.7 % (40.0-80.0) 08/30/16 14:15 Lymphocytes % 24.0 % (20.0-50.0) 08/30/16 14:15 Monocytes % 7.8 % (2.0-10.0) 08/30/16 14:15 Eosinophils % 1.7 % (0.0-5.0) 08/30/16 14:15 Basophils % 0.8 % (0.0-2.0) 08/30/16 14:15 Sodium 121 mEq/L (136-145) L 08/30/16 14:15 Potassium 4.3 mEq/L (3.5-5.1) 08/30/16 14:15 Chloride 91 mEq/L (98-107) L 08/30/16 14:15 Carbon Dioxide 26.2 mEq/L (21.0-31.0) 08/30/16 14:15 Anion Gap 8.1 (7.0-16.0) 08/30/16 14:15 BUN 8 mg/dL (7-25) 08/30/16 14:15 Creatinine 0.5 mg/dL (0.6-1.2) L 08/30/16 14:15 Est GFR ( Amer) TNP 08/30/16 14:15 Est GFR (Non-Af Amer) TNP 08/30/16 14:15 BUN/Creatinine Ratio 16.0 08/30/16 14:15 Glucose 153 mg/dL (70-105) H 08/30/16 14:15 Calcium 9.5 mg/dL (8.6-10.3) 08/30/16 14:15 Total Bilirubin 0.3 mg/dL (0.3-1.0) 08/30/16 14:15 GGTP 17 IU/L (0-60) 08/30/16 14:15 AST 21 U/L (13-39) 08/30/16 14:15 ALT 17 U/L (7-52) 08/30/16 14:15 Alkaline Phosphatase 89 U/L (34-104) 08/30/16 14:15 Total Protein 7.3 gm/dL (6.0-8.3) 08/30/16 14:15 Albumin 4.1 gm/dL (3.7-5.3) 08/30/16 14:15 Globulin 3.2 gm/dL 08/30/16 14:15 Albumin/Globulin Ratio 1.3 (1.0-1.8) 08/30/16 14:15 Lipase 22 U/L (11-82) 08/30/16 14:15 TSH 1.19 uIU/ml (0.34-5.60) 08/30/16 14:15 Urine Source CLEAN C 08/30/16 14:00 Urine Color YELLOW 08/30/16 14:00 Urine Clarity SLIGHT HAZY (CLEAR) 08/30/16 14:00 Urine pH 6.5 08/30/16 14:00 Ur Specific [place] 1.015 (1.005-1.030) 08/30/16 14:00 Urine Protein NEGATIVE mg/dL (NEGATIVE) 08/30/16 14:00 Urine Glucose (UA) NEGATIVE mg/dL (NEGATIVE) 08/30/16 14:00 Urine Ketones NEGATIVE mg/dL (NEGATIVE) 08/30/16 14:00 Urine Blood TRACE (NEGATIVE) 08/30/16 14:00 Urine Nitrate NEGATIVE (NEGATIVE) 08/30/16 14:00 Urine Bilirubin NEGATIVE (NEGATIVE) 08/30/16 14:00 Urine Urobilinogen 0.2 E.U./dL (0.2 - 1.0) 08/30/16 14:00 Ur Leukocyte Esterase LARGE (NEGATIVE) H 08/30/16 14:00 Urine RBC 2-5 /hpf (0-5) 08/30/16 14:00 Urine WBC 25-50 /hpf (0-5) H 08/30/16 14:00 Ur Epithelial Cells OCCASIONAL /lpf (FEW) 08/30/16 14:00 Urine Bacteria 1+ /hpf (NONE SEEN) H 08/30/16 14:00 Salicylates < 25.0 mg/L (30.0-100.0) L 08/30/16 14:15 Urine Opiates Screen NEGATIVE (NEGATIVE) 08/30/16 14:00 Urine Methadone Screen NEGATIVE (NEGATIVE) 08/30/16 14:00 Acetaminophen < 10.0 ug/mL (10.0-30.0) L 08/30/16 14:15 Ur Barbiturates Screen NEGATIVE (NEGATIVE) 08/30/16 14:00 Ur Tricyclics Screen NEGATIVE (NEGATIVE) 08/30/16 14:00 Ur Phencyclidine Scrn NEGATIVE (NEGATIVE) 08/30/16 14:00 Amphetamines Screen NEGATIVE (NEGATIVE) 08/30/16 14:00 U Methamphetamines Scrn NEGATIVE (NEGATIVE) 08/30/16 14:00 U Benzodiazepines Scrn NEGATIVE (NEGATIVE) 08/30/16 14:00 U Cocaine Metab Screen NEGATIVE (NEGATIVE) 08/30/16 14:00 U Cannabinoids Screen NEGATIVE (NEGATIVE) 08/30/16 14:00 Ethyl Alcohol < 10 mg/dL (0-10) 08/30/16 14:15 RPR NONREACTIVE (NONREACTIVE) 08/30/16 14:15 - Physical Exam Vitals and I&O: Vital Signs Temp 97.6 F 08/31/16 05:19 Pulse 79 09/01/16 11:18 Resp 19 08/31/16 05:19 BP 112/55 09/01/16 11:18 Pulse Ox 96 08/31/16 05:19 Intake & Output 08/31/16 09/01/16 09/01/16 18:59 06:59 18:59 Other: Stool Characteristics Soft Active Medications: Current Medications Acetaminophen (Tylenol) 650 mg PO Q4H PRN PRN Reason: PAIN Stop: 10/29/16 23:25 Ascorbic Acid (Vitamin C) 500 mg PO DAILY [facility] Stop: 10/30/16 08:59 Last Admin: 09/01/16 11:20 Dose: Not Given Atenolol (Tenormin) 25 mg PO DAILY [facility] Stop: 10/30/16 08:59 Last Admin: 09/01/16 11:16 Dose: Not Given Docusate Sodium (Colace) 100 mg PO BID [facility] Stop: 10/30/16 08:59 Last Admin: 09/01/16 11:17 Dose: Not Given Escitalopram Oxalate (Lexapro) 5 mg PO DAILY [facility] PRN Reason: Protocol Stop: 10/31/16 08:59 Last Admin: 09/01/16 11:17 Dose: 5 mg Levofloxacin (Levaquin) 500 mg PO DAILY [facility] Stop: 10/31/16 08:59 Last Admin: 09/01/16 11:18 Dose: 500 mg Levothyroxine Sodium (Synthroid) 0.125 mg PO QDAC [facility] Stop: 10/30/16 07:29 Last Admin: 09/01/16 06:33 Dose: Not Given Lisinopril (Zestril) 20 mg PO DAILY [facility] Stop: 10/30/16 08:59 Last Admin: 09/01/16 11:18 Dose: Not Given Magnesium Hydroxide (Milk Of Magnesia) 30 ml PO DAILY PRN PRN Reason: Constipation Stop: 10/29/16 23:25 Olanzapine (Zyprexa) 7.5 mg PO DAILY [facility] PRN Reason: Protocol Stop: 10/31/16 12:45 Sodium Chloride (Nacl Tab) 1 gm PO TID [facility] Stop: 10/30/16 20:59 Last Admin: 09/01/16 11:19 Dose: 1 gm General: demented HEENT: NC/AT, PERRLA Neck: Supple, No JVD Lungs: CTAB Cardiovascular: RRR, Normal S1, Normal S2 Abdomen: soft non-tender, globular, positive bowel sound, other (colostomy in placed) Extremities: excoriation, contracture Neurological: no change, unable to follow command - Procedures Procedures: Procedures Procedure Code Date APPENDECTOMY ADD-ON 48518 08/04/15 BYPASS TRANSVERSE COLON TO CUTANEOUS, OPEN APPROACH [id number] 08/04/15 COLOSTOMY 52805 08/04/15 EXCISION OF LARGE INTESTINE, OPEN APPROACH [id number] 08/04/15 GROUP PSYCHOTHERAPY 66094 07/31/15 GROUP PSYCHOTHERAPY GZHZZZZ 07/31/15 GROUP PSYCHOTHERAPY 84647 04/02/15 GROUP PSYCHOTHERAPY GZHZZZZ 04/02/15 OTHER GROUP THERAPY 94.44 11/07/14 PARTIAL REMOVAL OF COLON 61765 08/04/15 RECREATIONAL THERAPY 93.81 02/21/10 RESECTION OF APPENDIX, OPEN APPROACH [id number] 08/04/15 Internal Medicine Assmt/Plan - Assessment Assessment: Urinary tract infection, hyponatremia, hypertension, hypothyroidism, dementia, status post colostomy, rectal prolapse repair, and hernia repair. - Plan Plan: cont on antibiotic cont on nacl fall precaution monitor na level gerry bourne
--- NOTE | 2016-09-02 04:25 | Progress Notes ---
DATE: 09/01/2016 Case was discussed with staff of the patient, reviewed records. The patient has been acting out, needed emergency medication earlier today. She still unpredictable, impulsive, continues to have poor insight, continues to be unable to make safe plan for self-care. Continues to need redirection, looking disheveled, and I will be increasing her Zyprexa to 7.5 mg at bedtime, and so far no side effects, no sedation, no nausea, and we will continue to work with the patient in group therapy, milieu therapy, and adjust medication as needed. JOB# [id number]
[2016-09-02] MEDS: Levothyroxine 0.125 Mg Tab PO SCH (06:45)
[2016-09-02] MEDS: Escitalopram Oxalate 5 mg Tab PO SCH (08:51)
[2016-09-02] MEDS: Multivitamin w/ Minerals Tab PO SCH (08:52)
--- NOTE | 2016-09-02 13:01 | Internal Medicine Prog Note ---
Internal Medicine Subjective - Subjective Patient seen and examined:: with staff, chart reviewed Patient is:: awake, verbal, interactive Per staff patient is:: no adverse event, no episodes of fall, eating well, noncompliant, confused Internal Medicine Objective - Results Result Diagrams: 08/30/16 14:15 08/30/16 14:15 Recent Labs: Laboratory Last Values WBC 8.1 Th/cmm (4.8-10.8) 08/30/16 14:15 RBC 4.32 Mil/cmm (3.80-5.20) 08/30/16 14:15 Hgb 12.2 gm/dL (11.7-16.1) 08/30/16 14:15 Hct 35.6 % (35.0-45.0) 08/30/16 14:15 MCV 82.4 fl (81-100) 08/30/16 14:15 MCH 28.2 pg (27.0-31.0) 08/30/16 14:15 MCHC Differential 34.2 pg (28.0-36.0) 08/30/16 14:15 RDW 13.5 % (11.5-20.0) 08/30/16 14:15 Plt Count 370 Th/cmm (150-400) D 08/30/16 14:15 MPV 6.7 fl 08/30/16 14:15 Neutrophils % 65.7 % (40.0-80.0) 08/30/16 14:15 Lymphocytes % 24.0 % (20.0-50.0) 08/30/16 14:15 Monocytes % 7.8 % (2.0-10.0) 08/30/16 14:15 Eosinophils % 1.7 % (0.0-5.0) 08/30/16 14:15 Basophils % 0.8 % (0.0-2.0) 08/30/16 14:15 Sodium 121 mEq/L (136-145) L 08/30/16 14:15 Potassium 4.3 mEq/L (3.5-5.1) 08/30/16 14:15 Chloride 91 mEq/L (98-107) L 08/30/16 14:15 Carbon Dioxide 26.2 mEq/L (21.0-31.0) 08/30/16 14:15 Anion Gap 8.1 (7.0-16.0) 08/30/16 14:15 BUN 8 mg/dL (7-25) 08/30/16 14:15 Creatinine 0.5 mg/dL (0.6-1.2) L 08/30/16 14:15 Est GFR ( Amer) TNP 08/30/16 14:15 Est GFR (Non-Af Amer) TNP 08/30/16 14:15 BUN/Creatinine Ratio 16.0 08/30/16 14:15 Glucose 153 mg/dL (70-105) H 08/30/16 14:15 Calcium 9.5 mg/dL (8.6-10.3) 08/30/16 14:15 Total Bilirubin 0.3 mg/dL (0.3-1.0) 08/30/16 14:15 GGTP 17 IU/L (0-60) 08/30/16 14:15 AST 21 U/L (13-39) 08/30/16 14:15 ALT 17 U/L (7-52) 08/30/16 14:15 Alkaline Phosphatase 89 U/L (34-104) 08/30/16 14:15 Total Protein 7.3 gm/dL (6.0-8.3) 08/30/16 14:15 Albumin 4.1 gm/dL (3.7-5.3) 08/30/16 14:15 Globulin 3.2 gm/dL 08/30/16 14:15 Albumin/Globulin Ratio 1.3 (1.0-1.8) 08/30/16 14:15 Lipase 22 U/L (11-82) 08/30/16 14:15 TSH 1.19 uIU/ml (0.34-5.60) 08/30/16 14:15 Urine Source CLEAN C 08/30/16 14:00 Urine Color YELLOW 08/30/16 14:00 Urine Clarity SLIGHT HAZY (CLEAR) 08/30/16 14:00 Urine pH 6.5 08/30/16 14:00 Ur Specific [place] 1.015 (1.005-1.030) 08/30/16 14:00 Urine Protein NEGATIVE mg/dL (NEGATIVE) 08/30/16 14:00 Urine Glucose (UA) NEGATIVE mg/dL (NEGATIVE) 08/30/16 14:00 Urine Ketones NEGATIVE mg/dL (NEGATIVE) 08/30/16 14:00 Urine Blood TRACE (NEGATIVE) 08/30/16 14:00 Urine Nitrate NEGATIVE (NEGATIVE) 08/30/16 14:00 Urine Bilirubin NEGATIVE (NEGATIVE) 08/30/16 14:00 Urine Urobilinogen 0.2 E.U./dL (0.2 - 1.0) 08/30/16 14:00 Ur Leukocyte Esterase LARGE (NEGATIVE) H 08/30/16 14:00 Urine RBC 2-5 /hpf (0-5) 08/30/16 14:00 Urine WBC 25-50 /hpf (0-5) H 08/30/16 14:00 Ur Epithelial Cells OCCASIONAL /lpf (FEW) 08/30/16 14:00 Urine Bacteria 1+ /hpf (NONE SEEN) H 08/30/16 14:00 Salicylates < 25.0 mg/L (30.0-100.0) L 08/30/16 14:15 Urine Opiates Screen NEGATIVE (NEGATIVE) 08/30/16 14:00 Urine Methadone Screen NEGATIVE (NEGATIVE) 08/30/16 14:00 Acetaminophen < 10.0 ug/mL (10.0-30.0) L 08/30/16 14:15 Ur Barbiturates Screen NEGATIVE (NEGATIVE) 08/30/16 14:00 Ur Tricyclics Screen NEGATIVE (NEGATIVE) 08/30/16 14:00 Ur Phencyclidine Scrn NEGATIVE (NEGATIVE) 08/30/16 14:00 Amphetamines Screen NEGATIVE (NEGATIVE) 08/30/16 14:00 U Methamphetamines Scrn NEGATIVE (NEGATIVE) 08/30/16 14:00 U Benzodiazepines Scrn NEGATIVE (NEGATIVE) 08/30/16 14:00 U Cocaine Metab Screen NEGATIVE (NEGATIVE) 08/30/16 14:00 U Cannabinoids Screen NEGATIVE (NEGATIVE) 08/30/16 14:00 Ethyl Alcohol < 10 mg/dL (0-10) 08/30/16 14:15 RPR NONREACTIVE (NONREACTIVE) 08/30/16 14:15 - Physical Exam Vitals and I&O: Vital Signs Temp 97.8 F 09/02/16 07:07 Pulse 92 09/02/16 08:52 Resp 18 09/02/16 07:07 BP 134/65 09/02/16 08:52 Pulse Ox 97 09/02/16 07:07 Intake & Output 09/01/16 09/02/16 09/02/16 18:59 06:59 18:59 Other: # Voids 1 1 Stool Characteristics Liquid Liquid Active Medications: Current Medications Acetaminophen (Tylenol) 650 mg PO Q4H PRN PRN Reason: PAIN Stop: 10/29/16 23:25 Ascorbic Acid (Vitamin C) 500 mg PO DAILY [facility] Stop: 10/30/16 08:59 Last Admin: 09/02/16 08:52 Dose: 500 mg Atenolol (Tenormin) 25 mg PO DAILY [facility] Stop: 10/30/16 08:59 Last Admin: 09/02/16 08:52 Dose: 25 mg Docusate Sodium (Colace) 100 mg PO BID [facility] Stop: 10/30/16 08:59 Last Admin: 09/02/16 08:39 Dose: Not Given Escitalopram Oxalate (Lexapro) 5 mg PO DAILY [facility] PRN Reason: Protocol Stop: 10/31/16 08:59 Last Admin: 09/02/16 08:51 Dose: 5 mg Levofloxacin (Levaquin) 500 mg PO DAILY [facility] Stop: 10/31/16 08:59 Last Admin: 09/02/16 08:50 Dose: 500 mg Levothyroxine Sodium (Synthroid) 0.125 mg PO QDAC [facility] Stop: 10/30/16 07:29 Last Admin: 09/02/16 06:45 Dose: 0.125 mg Lisinopril (Zestril) 20 mg PO DAILY [facility] Stop: 10/30/16 08:59 Last Admin: 09/02/16 08:50 Dose: 20 mg Magnesium Hydroxide (Milk Of Magnesia) 30 ml PO DAILY PRN PRN Reason: Constipation Stop: 10/29/16 23:25 Olanzapine (Zyprexa) 7.5 mg PO DAILY [facility] PRN Reason: Protocol Stop: 10/31/16 12:45 Last Admin: 09/02/16 08:49 Dose: 7.5 mg Sodium Chloride (Nacl Tab) 1 gm PO TID [facility] Stop: 10/30/16 20:59 Last Admin: 09/02/16 08:51 Dose: 1 gm General: demented HEENT: NC/AT, PERRLA Neck: Supple, No JVD Lungs: CTAB Cardiovascular: RRR, Normal S1, Normal S2 Abdomen: soft non-tender, globular, positive bowel sound Extremities: excoriation, contracture Neurological: no change, disorganized, unable to follow command - Procedures Procedures: Procedures Procedure Code Date APPENDECTOMY ADD-ON 17877 08/04/15 BYPASS TRANSVERSE COLON TO CUTANEOUS, OPEN APPROACH [id number] 08/04/15 COLOSTOMY 54891 08/04/15 EXCISION OF LARGE INTESTINE, OPEN APPROACH [id number] 08/04/15 GROUP PSYCHOTHERAPY 75359 07/31/15 GROUP PSYCHOTHERAPY GZHZZZZ 07/31/15 GROUP PSYCHOTHERAPY 90379 04/02/15 GROUP PSYCHOTHERAPY GZHZZZZ 04/02/15 OTHER GROUP THERAPY 94.44 11/07/14 PARTIAL REMOVAL OF COLON 61626 08/04/15 RECREATIONAL THERAPY 93.81 02/21/10 RESECTION OF APPENDIX, OPEN APPROACH [id number] 08/04/15 Internal Medicine Assmt/Plan - Assessment Assessment: Urinary tract infection, hyponatremia, hypertension, hypothyroidism, dementia, status post colostomy, rectal prolapse repair, and hernia repair. - Plan Plan: cont on antibiotic cont on nacl fall precaution monitor na level gerry bourne
--- NOTE | 2016-09-03 01:58 | Progress Notes ---
DATE: 09/02/2016 SUBJECTIVE: Case discussed with staff of the patient, reviewed records. The patient continues to be irritable, internally preoccupied, rambling speech. Continues to have poor insight. Continues to be unable to make safe plan for self-care. I did increase her Zyprexa dose yesterday and she is on Lexapro with no side effects, no sedation, no nausea, no extrapyramidal symptoms. Her lab work showed TSH within normal range. Urine drug screen was negative. Chemistry panel with low sodium, low chloride, high blood sugar, low creatinine for which I will be consulting with Dr. Sales regarding the very low sodium level. Urinalysis shows large leukocytic esterase and red cells. That will be also deferred to Dr. Sales and still unpredictable, impulsive, and we will continue to work with the patient in group therapy, milieu therapy, adjust the medication as needed. JOB# [id number]
[2016-09-03] MEDS: Levothyroxine 0.125 Mg Tab PO SCH ×2 (06:59→07:09)
[2016-09-03] MEDS: Multivitamin w/ Minerals Tab PO SCH (09:41)
[2016-09-03] MEDS: Escitalopram Oxalate 5 mg Tab PO SCH (09:41)
--- NOTE | 2016-09-03 14:44 | Internal Medicine Prog Note ---
Internal Medicine Subjective - Subjective Patient seen and examined:: with staff, chart reviewed Patient is:: awake, verbal, interactive Patient Complaints of:: pain with urination Per staff patient is:: no adverse event, no episodes of fall, noncompliant, confused Internal Medicine Objective - Results Result Diagrams: 08/30/16 14:15 08/30/16 14:15 Recent Labs: Laboratory Last Values WBC 8.1 Th/cmm (4.8-10.8) 08/30/16 14:15 RBC 4.32 Mil/cmm (3.80-5.20) 08/30/16 14:15 Hgb 12.2 gm/dL (11.7-16.1) 08/30/16 14:15 Hct 35.6 % (35.0-45.0) 08/30/16 14:15 MCV 82.4 fl (81-100) 08/30/16 14:15 MCH 28.2 pg (27.0-31.0) 08/30/16 14:15 MCHC Differential 34.2 pg (28.0-36.0) 08/30/16 14:15 RDW 13.5 % (11.5-20.0) 08/30/16 14:15 Plt Count 370 Th/cmm (150-400) D 08/30/16 14:15 MPV 6.7 fl 08/30/16 14:15 Neutrophils % 65.7 % (40.0-80.0) 08/30/16 14:15 Lymphocytes % 24.0 % (20.0-50.0) 08/30/16 14:15 Monocytes % 7.8 % (2.0-10.0) 08/30/16 14:15 Eosinophils % 1.7 % (0.0-5.0) 08/30/16 14:15 Basophils % 0.8 % (0.0-2.0) 08/30/16 14:15 Sodium 121 mEq/L (136-145) L 08/30/16 14:15 Potassium 4.3 mEq/L (3.5-5.1) 08/30/16 14:15 Chloride 91 mEq/L (98-107) L 08/30/16 14:15 Carbon Dioxide 26.2 mEq/L (21.0-31.0) 08/30/16 14:15 Anion Gap 8.1 (7.0-16.0) 08/30/16 14:15 BUN 8 mg/dL (7-25) 08/30/16 14:15 Creatinine 0.5 mg/dL (0.6-1.2) L 08/30/16 14:15 Est GFR ( Amer) TNP 08/30/16 14:15 Est GFR (Non-Af Amer) TNP 08/30/16 14:15 BUN/Creatinine Ratio 16.0 08/30/16 14:15 Glucose 153 mg/dL (70-105) H 08/30/16 14:15 Calcium 9.5 mg/dL (8.6-10.3) 08/30/16 14:15 Total Bilirubin 0.3 mg/dL (0.3-1.0) 08/30/16 14:15 GGTP 17 IU/L (0-60) 08/30/16 14:15 AST 21 U/L (13-39) 08/30/16 14:15 ALT 17 U/L (7-52) 08/30/16 14:15 Alkaline Phosphatase 89 U/L (34-104) 08/30/16 14:15 Total Protein 7.3 gm/dL (6.0-8.3) 08/30/16 14:15 Albumin 4.1 gm/dL (3.7-5.3) 08/30/16 14:15 Globulin 3.2 gm/dL 08/30/16 14:15 Albumin/Globulin Ratio 1.3 (1.0-1.8) 08/30/16 14:15 Lipase 22 U/L (11-82) 08/30/16 14:15 TSH 1.19 uIU/ml (0.34-5.60) 08/30/16 14:15 Urine Source CLEAN C 08/30/16 14:00 Urine Color YELLOW 08/30/16 14:00 Urine Clarity SLIGHT HAZY (CLEAR) 08/30/16 14:00 Urine pH 6.5 08/30/16 14:00 Ur Specific [place] 1.015 (1.005-1.030) 08/30/16 14:00 Urine Protein NEGATIVE mg/dL (NEGATIVE) 08/30/16 14:00 Urine Glucose (UA) NEGATIVE mg/dL (NEGATIVE) 08/30/16 14:00 Urine Ketones NEGATIVE mg/dL (NEGATIVE) 08/30/16 14:00 Urine Blood TRACE (NEGATIVE) 08/30/16 14:00 Urine Nitrate NEGATIVE (NEGATIVE) 08/30/16 14:00 Urine Bilirubin NEGATIVE (NEGATIVE) 08/30/16 14:00 Urine Urobilinogen 0.2 E.U./dL (0.2 - 1.0) 08/30/16 14:00 Ur Leukocyte Esterase LARGE (NEGATIVE) H 08/30/16 14:00 Urine RBC 2-5 /hpf (0-5) 08/30/16 14:00 Urine WBC 25-50 /hpf (0-5) H 08/30/16 14:00 Ur Epithelial Cells OCCASIONAL /lpf (FEW) 08/30/16 14:00 Urine Bacteria 1+ /hpf (NONE SEEN) H 08/30/16 14:00 Salicylates < 25.0 mg/L (30.0-100.0) L 08/30/16 14:15 Urine Opiates Screen NEGATIVE (NEGATIVE) 08/30/16 14:00 Urine Methadone Screen NEGATIVE (NEGATIVE) 08/30/16 14:00 Acetaminophen < 10.0 ug/mL (10.0-30.0) L 08/30/16 14:15 Ur Barbiturates Screen NEGATIVE (NEGATIVE) 08/30/16 14:00 Ur Tricyclics Screen NEGATIVE (NEGATIVE) 08/30/16 14:00 Ur Phencyclidine Scrn NEGATIVE (NEGATIVE) 08/30/16 14:00 Amphetamines Screen NEGATIVE (NEGATIVE) 08/30/16 14:00 U Methamphetamines Scrn NEGATIVE (NEGATIVE) 08/30/16 14:00 U Benzodiazepines Scrn NEGATIVE (NEGATIVE) 08/30/16 14:00 U Cocaine Metab Screen NEGATIVE (NEGATIVE) 08/30/16 14:00 U Cannabinoids Screen NEGATIVE (NEGATIVE) 08/30/16 14:00 Ethyl Alcohol < 10 mg/dL (0-10) 08/30/16 14:15 RPR NONREACTIVE (NONREACTIVE) 08/30/16 14:15 - Physical Exam Vitals and I&O: Vital Signs Temp 97.8 F 09/03/16 06:49 Pulse 94 09/03/16 09:45 Resp 18 09/03/16 06:49 BP 143/98 09/03/16 09:45 Pulse Ox 97 09/03/16 06:49 Intake & Output 09/02/16 09/03/16 09/03/16 18:59 06:59 18:59 Intake Total 950 240 Output Total 400 Balance 550 240 Intake: Oral 950 240 Output: Stool 400 Other: # Voids 4 1 Stool Characteristics Liquid Liquid Active Medications: Current Medications Acetaminophen (Tylenol) 650 mg PO Q4H PRN PRN Reason: PAIN Stop: 10/29/16 23:25 Ascorbic Acid (Vitamin C) 500 mg PO DAILY [facility] Stop: 10/30/16 08:59 Last Admin: 09/03/16 09:46 Dose: 500 mg Atenolol (Tenormin) 25 mg PO DAILY [facility] Stop: 10/30/16 08:59 Last Admin: 09/03/16 09:45 Dose: 25 mg Docusate Sodium (Colace) 100 mg PO BID [facility] Stop: 10/30/16 08:59 Last Admin: 09/03/16 09:42 Dose: 100 mg Escitalopram Oxalate (Lexapro) 5 mg PO DAILY [facility] PRN Reason: Protocol Stop: 10/31/16 08:59 Last Admin: 09/03/16 09:41 Dose: 5 mg Levofloxacin (Levaquin) 500 mg PO DAILY [facility] Stop: 10/31/16 08:59 Last Admin: 09/03/16 09:45 Dose: 500 mg Levothyroxine Sodium (Synthroid) 0.125 mg PO QDAC [facility] Stop: 10/30/16 07:29 Last Admin: 09/03/16 07:09 Dose: 0.125 mg Lisinopril (Zestril) 20 mg PO DAILY [facility] Stop: 10/30/16 08:59 Last Admin: 09/03/16 09:43 Dose: 20 mg Magnesium Hydroxide (Milk Of Magnesia) 30 ml PO DAILY PRN PRN Reason: Constipation Stop: 10/29/16 23:25 Olanzapine (Zyprexa) 10 mg PO DAILY [facility] PRN Reason: Protocol Stop: 10/31/16 12:45 Last Admin: 09/03/16 09:42 Dose: 10 mg Sodium Chloride (Nacl Tab) 1 gm PO TID [facility] Stop: 10/30/16 20:59 Last Admin: 09/03/16 09:46 Dose: 1 gm General: demented HEENT: NC/AT, PERRLA Neck: Supple, No JVD Lungs: CTAB Cardiovascular: RRR, Normal S1, Normal S2 Abdomen: soft non-tender, thin, other (colostomy) Extremities: excoriation, contracture Neurological: no change, disorganized, unable to follow command - Procedures Procedures: Procedures Procedure Code Date APPENDECTOMY ADD-ON 92483 08/04/15 BYPASS TRANSVERSE COLON TO CUTANEOUS, OPEN APPROACH [id number] 08/04/15 COLOSTOMY 93419 08/04/15 EXCISION OF LARGE INTESTINE, OPEN APPROACH [id number] 08/04/15 GROUP PSYCHOTHERAPY 24102 07/31/15 GROUP PSYCHOTHERAPY GZHZZZZ 07/31/15 GROUP PSYCHOTHERAPY 26383 04/02/15 GROUP PSYCHOTHERAPY GZHZZZZ 04/02/15 OTHER GROUP THERAPY 94.44 11/07/14 PARTIAL REMOVAL OF COLON 11525 08/04/15 RECREATIONAL THERAPY 93.81 02/21/10 RESECTION OF APPENDIX, OPEN APPROACH [id number] 08/04/15 Internal Medicine Assmt/Plan - Assessment Assessment: Urinary tract infection, hyponatremia, hypertension, hypothyroidism, dementia, status post colostomy, rectal prolapse repair, and hernia repair. - Plan Plan: cont on antibiotic cont on nacl fall precaution monitor na level gerry bourne
--- NOTE | 2016-09-03 20:10 | Progress Notes ---
DATE: 09/03/2016 SUBJECTIVE: Chart reviewed and the patient interviewed. Also discussed the patient's condition with the staff and reviewed records and labs. The patient is still easily agitated and she is still in irritable and angry mood. The patient also yesterday was just spilling water on the floor and she was having difficulty following any of the staff's directions. She also is still confused and demanding. On the other hand, the patient continued to take her medications with no side effects of medications. ASSESSMENT: The patient is still psychotic and is easily agitated. TREATMENT PLAN: We will continue monitoring her behavior and her condition closely. Also, we will increase Lexapro to 10 mg everyday and we will continue to follow up her condition and behavior closely. [facility]# [id number]
[2016-09-04] MEDS: Levothyroxine 0.125 Mg Tab PO SCH (06:34)
[2016-09-04] MEDS: Escitalopram Oxalate 5 mg Tab PO SCH (08:49)
[2016-09-04] MEDS: Multivitamin w/ Minerals Tab PO SCH (08:49)
--- NOTE | 2016-09-04 12:47 | Internal Medicine Prog Note ---
Internal Medicine Subjective - Subjective Patient seen and examined:: with staff, chart reviewed Patient is:: awake, verbal, interactive Patient Complaints of:: congestion Per staff patient is:: no adverse event, no episodes of fall, poor appetite, agitated, combative, noncompliant, confused Internal Medicine Objective - Results Result Diagrams: 08/30/16 14:15 08/30/16 14:15 Recent Labs: Laboratory Last Values WBC 8.1 Th/cmm (4.8-10.8) 08/30/16 14:15 RBC 4.32 Mil/cmm (3.80-5.20) 08/30/16 14:15 Hgb 12.2 gm/dL (11.7-16.1) 08/30/16 14:15 Hct 35.6 % (35.0-45.0) 08/30/16 14:15 MCV 82.4 fl (81-100) 08/30/16 14:15 MCH 28.2 pg (27.0-31.0) 08/30/16 14:15 MCHC Differential 34.2 pg (28.0-36.0) 08/30/16 14:15 RDW 13.5 % (11.5-20.0) 08/30/16 14:15 Plt Count 370 Th/cmm (150-400) D 08/30/16 14:15 MPV 6.7 fl 08/30/16 14:15 Neutrophils % 65.7 % (40.0-80.0) 08/30/16 14:15 Lymphocytes % 24.0 % (20.0-50.0) 08/30/16 14:15 Monocytes % 7.8 % (2.0-10.0) 08/30/16 14:15 Eosinophils % 1.7 % (0.0-5.0) 08/30/16 14:15 Basophils % 0.8 % (0.0-2.0) 08/30/16 14:15 Sodium 121 mEq/L (136-145) L 08/30/16 14:15 Potassium 4.3 mEq/L (3.5-5.1) 08/30/16 14:15 Chloride 91 mEq/L (98-107) L 08/30/16 14:15 Carbon Dioxide 26.2 mEq/L (21.0-31.0) 08/30/16 14:15 Anion Gap 8.1 (7.0-16.0) 08/30/16 14:15 BUN 8 mg/dL (7-25) 08/30/16 14:15 Creatinine 0.5 mg/dL (0.6-1.2) L 08/30/16 14:15 Est GFR ( Amer) TNP 08/30/16 14:15 Est GFR (Non-Af Amer) TNP 08/30/16 14:15 BUN/Creatinine Ratio 16.0 08/30/16 14:15 Glucose 153 mg/dL (70-105) H 08/30/16 14:15 Calcium 9.5 mg/dL (8.6-10.3) 08/30/16 14:15 Total Bilirubin 0.3 mg/dL (0.3-1.0) 08/30/16 14:15 GGTP 17 IU/L (0-60) 08/30/16 14:15 AST 21 U/L (13-39) 08/30/16 14:15 ALT 17 U/L (7-52) 08/30/16 14:15 Alkaline Phosphatase 89 U/L (34-104) 08/30/16 14:15 Total Protein 7.3 gm/dL (6.0-8.3) 08/30/16 14:15 Albumin 4.1 gm/dL (3.7-5.3) 08/30/16 14:15 Globulin 3.2 gm/dL 08/30/16 14:15 Albumin/Globulin Ratio 1.3 (1.0-1.8) 08/30/16 14:15 Lipase 22 U/L (11-82) 08/30/16 14:15 TSH 1.19 uIU/ml (0.34-5.60) 08/30/16 14:15 Urine Source CLEAN C 08/30/16 14:00 Urine Color YELLOW 08/30/16 14:00 Urine Clarity SLIGHT HAZY (CLEAR) 08/30/16 14:00 Urine pH 6.5 08/30/16 14:00 Ur Specific [place] 1.015 (1.005-1.030) 08/30/16 14:00 Urine Protein NEGATIVE mg/dL (NEGATIVE) 08/30/16 14:00 Urine Glucose (UA) NEGATIVE mg/dL (NEGATIVE) 08/30/16 14:00 Urine Ketones NEGATIVE mg/dL (NEGATIVE) 08/30/16 14:00 Urine Blood TRACE (NEGATIVE) 08/30/16 14:00 Urine Nitrate NEGATIVE (NEGATIVE) 08/30/16 14:00 Urine Bilirubin NEGATIVE (NEGATIVE) 08/30/16 14:00 Urine Urobilinogen 0.2 E.U./dL (0.2 - 1.0) 08/30/16 14:00 Ur Leukocyte Esterase LARGE (NEGATIVE) H 08/30/16 14:00 Urine RBC 2-5 /hpf (0-5) 08/30/16 14:00 Urine WBC 25-50 /hpf (0-5) H 08/30/16 14:00 Ur Epithelial Cells OCCASIONAL /lpf (FEW) 08/30/16 14:00 Urine Bacteria 1+ /hpf (NONE SEEN) H 08/30/16 14:00 Salicylates < 25.0 mg/L (30.0-100.0) L 08/30/16 14:15 Urine Opiates Screen NEGATIVE (NEGATIVE) 08/30/16 14:00 Urine Methadone Screen NEGATIVE (NEGATIVE) 08/30/16 14:00 Acetaminophen < 10.0 ug/mL (10.0-30.0) L 08/30/16 14:15 Ur Barbiturates Screen NEGATIVE (NEGATIVE) 08/30/16 14:00 Ur Tricyclics Screen NEGATIVE (NEGATIVE) 08/30/16 14:00 Ur Phencyclidine Scrn NEGATIVE (NEGATIVE) 08/30/16 14:00 Amphetamines Screen NEGATIVE (NEGATIVE) 08/30/16 14:00 U Methamphetamines Scrn NEGATIVE (NEGATIVE) 08/30/16 14:00 U Benzodiazepines Scrn NEGATIVE (NEGATIVE) 08/30/16 14:00 U Cocaine Metab Screen NEGATIVE (NEGATIVE) 08/30/16 14:00 U Cannabinoids Screen NEGATIVE (NEGATIVE) 08/30/16 14:00 Ethyl Alcohol < 10 mg/dL (0-10) 08/30/16 14:15 RPR NONREACTIVE (NONREACTIVE) 08/30/16 14:15 - Physical Exam Vitals and I&O: Vital Signs Temp 97 F 09/04/16 06:38 Pulse 89 09/04/16 08:49 Resp 20 09/04/16 06:38 BP 156/66 09/04/16 08:49 Pulse Ox 98 09/04/16 06:38 Intake & Output 09/03/16 09/04/16 09/04/16 18:59 06:59 18:59 Intake Total 2400 120 Output Total 400 350 Balance 2000 -230 Intake: Oral 2400 120 Output: Stool 400 350 Other: # Voids 5 3 Stool Characteristics Liquid Active Medications: Current Medications Acetaminophen (Tylenol) 650 mg PO Q4H PRN PRN Reason: PAIN Stop: 10/29/16 23:25 Ascorbic Acid (Vitamin C) 500 mg PO DAILY [facility] Stop: 10/30/16 08:59 Last Admin: 09/04/16 08:49 Dose: 500 mg Atenolol (Tenormin) 25 mg PO DAILY [facility] Stop: 10/30/16 08:59 Last Admin: 09/04/16 08:48 Dose: 25 mg Docusate Sodium (Colace) 100 mg PO BID [facility] Stop: 10/30/16 08:59 Last Admin: 09/04/16 08:49 Dose: 100 mg Escitalopram Oxalate (Lexapro) 5 mg PO DAILY [facility] PRN Reason: Protocol Stop: 10/31/16 08:59 Last Admin: 09/04/16 08:49 Dose: 5 mg Levofloxacin (Levaquin) 500 mg PO DAILY [facility] Stop: 10/31/16 08:59 Last Admin: 09/04/16 08:48 Dose: 500 mg Levothyroxine Sodium (Synthroid) 0.125 mg PO QDAC [facility] Stop: 10/30/16 07:29 Last Admin: 09/04/16 06:34 Dose: 0.125 mg Lisinopril (Zestril) 20 mg PO DAILY [facility] Stop: 10/30/16 08:59 Last Admin: 09/04/16 08:49 Dose: 20 mg Magnesium Hydroxide (Milk Of Magnesia) 30 ml PO DAILY PRN PRN Reason: Constipation Stop: 10/29/16 23:25 Olanzapine (Zyprexa) 10 mg PO DAILY [facility] PRN Reason: Protocol Stop: 10/31/16 12:45 Last Admin: 09/04/16 08:49 Dose: 10 mg Sodium Chloride (Nacl Tab) 1 gm PO TID NICOLE Stop: 10/30/16 20:59 Last Admin: 09/04/16 08:49 Dose: 1 gm General: demented HEENT: NC/AT, PERRLA Neck: Supple, No JVD Lungs: CTAB Cardiovascular: RRR, Normal S1, Normal S2 Abdomen: soft non-tender, globular, positive bowel sound Extremities: excoriation, contracture Neurological: no change, disorganized, unable to follow command - Procedures Procedures: Procedures Procedure Code Date APPENDECTOMY ADD-ON 61635 08/04/15 BYPASS TRANSVERSE COLON TO CUTANEOUS, OPEN APPROACH [id number] 08/04/15 COLOSTOMY 94291 08/04/15 EXCISION OF LARGE INTESTINE, OPEN APPROACH [id number] 08/04/15 GROUP PSYCHOTHERAPY 64939 07/31/15 GROUP PSYCHOTHERAPY GZHZZZZ 07/31/15 GROUP PSYCHOTHERAPY 99854 04/02/15 GROUP PSYCHOTHERAPY GZHZZZZ 04/02/15 OTHER GROUP THERAPY 94.44 11/07/14 PARTIAL REMOVAL OF COLON 27746 08/04/15 RECREATIONAL THERAPY 93.81 02/21/10 RESECTION OF APPENDIX, OPEN APPROACH [id number] 08/04/15 Internal Medicine Assmt/Plan - Assessment Assessment: Urinary tract infection, hyponatremia, hypertension, hypothyroidism, dementia, status post colostomy, rectal prolapse repair, and hernia repair. - Plan Plan: cont on antibiotic cont on nacl fall precaution monitor na level gerry bourne
--- NOTE | 2016-09-04 12:52 | Progress Notes ---
DATE: 09/04/2016 SUBJECTIVE: Chart reviewed and the patient interviewed. Also discussed the patient's condition with the staff and reviewed records and labs. The patient continued to be extremely agitated and extremely irritable. The patient is spilling water on to the floor and she also has been angry and irritable and pacing up and down the unit. The patient also has difficulty following any of staff directions. She also is still reporting visual hallucinations and patient is seeing things and seeing ghost inside her mood. She also is still unable to provide any safe plan for self-care. ASSESSMENT: The patient is still psychotic and agitated. TREATMENT PLAN: We will continue monitoring her behavior and her condition closely. Also, Zyprexa was increased yesterday. We will continue same dose and continue monitoring her behavior closely. [facility]# [id number]
[2016-09-05] MEDS: Levothyroxine 0.125 Mg Tab PO SCH (09:09)
[2016-09-05] MEDS: Multivitamin w/ Minerals Tab PO SCH (09:10)
[2016-09-05] MEDS: Escitalopram Oxalate 5 mg Tab PO SCH (09:10)
[2016-09-05] MEDS ORDERED: Haloperidol Lactate 5 mg/mL 1mL Vial IVP ONE (10:36)
--- NOTE | 2016-09-05 14:56 | Internal Medicine Prog Note ---
Internal Medicine Subjective - Subjective Patient seen and examined:: with staff, chart reviewed Patient is:: awake, verbal, interactive Per staff patient is:: no adverse event, no episodes of fall, poor appetite, confused Internal Medicine Objective - Results Result Diagrams: 08/30/16 14:15 08/30/16 14:15 Recent Labs: Laboratory Last Values WBC 8.1 Th/cmm (4.8-10.8) 08/30/16 14:15 RBC 4.32 Mil/cmm (3.80-5.20) 08/30/16 14:15 Hgb 12.2 gm/dL (11.7-16.1) 08/30/16 14:15 Hct 35.6 % (35.0-45.0) 08/30/16 14:15 MCV 82.4 fl (81-100) 08/30/16 14:15 MCH 28.2 pg (27.0-31.0) 08/30/16 14:15 MCHC Differential 34.2 pg (28.0-36.0) 08/30/16 14:15 RDW 13.5 % (11.5-20.0) 08/30/16 14:15 Plt Count 370 Th/cmm (150-400) D 08/30/16 14:15 MPV 6.7 fl 08/30/16 14:15 Neutrophils % 65.7 % (40.0-80.0) 08/30/16 14:15 Lymphocytes % 24.0 % (20.0-50.0) 08/30/16 14:15 Monocytes % 7.8 % (2.0-10.0) 08/30/16 14:15 Eosinophils % 1.7 % (0.0-5.0) 08/30/16 14:15 Basophils % 0.8 % (0.0-2.0) 08/30/16 14:15 Sodium 121 mEq/L (136-145) L 08/30/16 14:15 Potassium 4.3 mEq/L (3.5-5.1) 08/30/16 14:15 Chloride 91 mEq/L (98-107) L 08/30/16 14:15 Carbon Dioxide 26.2 mEq/L (21.0-31.0) 08/30/16 14:15 Anion Gap 8.1 (7.0-16.0) 08/30/16 14:15 BUN 8 mg/dL (7-25) 08/30/16 14:15 Creatinine 0.5 mg/dL (0.6-1.2) L 08/30/16 14:15 Est GFR ( Amer) TNP 08/30/16 14:15 Est GFR (Non-Af Amer) TNP 08/30/16 14:15 BUN/Creatinine Ratio 16.0 08/30/16 14:15 Glucose 153 mg/dL (70-105) H 08/30/16 14:15 Calcium 9.5 mg/dL (8.6-10.3) 08/30/16 14:15 Total Bilirubin 0.3 mg/dL (0.3-1.0) 08/30/16 14:15 GGTP 17 IU/L (0-60) 08/30/16 14:15 AST 21 U/L (13-39) 08/30/16 14:15 ALT 17 U/L (7-52) 08/30/16 14:15 Alkaline Phosphatase 89 U/L (34-104) 08/30/16 14:15 Total Protein 7.3 gm/dL (6.0-8.3) 08/30/16 14:15 Albumin 4.1 gm/dL (3.7-5.3) 08/30/16 14:15 Globulin 3.2 gm/dL 08/30/16 14:15 Albumin/Globulin Ratio 1.3 (1.0-1.8) 08/30/16 14:15 Lipase 22 U/L (11-82) 08/30/16 14:15 TSH 1.19 uIU/ml (0.34-5.60) 08/30/16 14:15 Urine Source CLEAN C 08/30/16 14:00 Urine Color YELLOW 08/30/16 14:00 Urine Clarity SLIGHT HAZY (CLEAR) 08/30/16 14:00 Urine pH 6.5 08/30/16 14:00 Ur Specific [place] 1.015 (1.005-1.030) 08/30/16 14:00 Urine Protein NEGATIVE mg/dL (NEGATIVE) 08/30/16 14:00 Urine Glucose (UA) NEGATIVE mg/dL (NEGATIVE) 08/30/16 14:00 Urine Ketones NEGATIVE mg/dL (NEGATIVE) 08/30/16 14:00 Urine Blood TRACE (NEGATIVE) 08/30/16 14:00 Urine Nitrate NEGATIVE (NEGATIVE) 08/30/16 14:00 Urine Bilirubin NEGATIVE (NEGATIVE) 08/30/16 14:00 Urine Urobilinogen 0.2 E.U./dL (0.2 - 1.0) 08/30/16 14:00 Ur Leukocyte Esterase LARGE (NEGATIVE) H 08/30/16 14:00 Urine RBC 2-5 /hpf (0-5) 08/30/16 14:00 Urine WBC 25-50 /hpf (0-5) H 08/30/16 14:00 Ur Epithelial Cells OCCASIONAL /lpf (FEW) 08/30/16 14:00 Urine Bacteria 1+ /hpf (NONE SEEN) H 08/30/16 14:00 Salicylates < 25.0 mg/L (30.0-100.0) L 08/30/16 14:15 Urine Opiates Screen NEGATIVE (NEGATIVE) 08/30/16 14:00 Urine Methadone Screen NEGATIVE (NEGATIVE) 08/30/16 14:00 Acetaminophen < 10.0 ug/mL (10.0-30.0) L 08/30/16 14:15 Ur Barbiturates Screen NEGATIVE (NEGATIVE) 08/30/16 14:00 Ur Tricyclics Screen NEGATIVE (NEGATIVE) 08/30/16 14:00 Ur Phencyclidine Scrn NEGATIVE (NEGATIVE) 08/30/16 14:00 Amphetamines Screen NEGATIVE (NEGATIVE) 08/30/16 14:00 U Methamphetamines Scrn NEGATIVE (NEGATIVE) 08/30/16 14:00 U Benzodiazepines Scrn NEGATIVE (NEGATIVE) 08/30/16 14:00 U Cocaine Metab Screen NEGATIVE (NEGATIVE) 08/30/16 14:00 U Cannabinoids Screen NEGATIVE (NEGATIVE) 08/30/16 14:00 Ethyl Alcohol < 10 mg/dL (0-10) 08/30/16 14:15 RPR NONREACTIVE (NONREACTIVE) 08/30/16 14:15 - Physical Exam Vitals and I&O: Vital Signs Temp 98.2 F 09/05/16 06:09 Pulse 82 09/05/16 06:09 Resp 19 09/05/16 06:09 BP 174/91 09/05/16 06:09 Pulse Ox 95 09/05/16 06:09 Intake & Output 09/04/16 09/05/16 09/05/16 18:59 06:59 18:59 Intake Total 2600 120 Output Total 200 Balance 2400 120 Intake: Oral 2600 120 Output: Stool 200 Other: # Voids 5 2 # Bowel Movements 1 Stool Characteristics Liquid Brown Active Medications: Current Medications Acetaminophen (Tylenol) 650 mg PO Q4H PRN PRN Reason: PAIN Stop: 10/29/16 23:25 Ascorbic Acid (Vitamin C) 500 mg PO DAILY [facility] Stop: 10/30/16 08:59 Last Admin: 09/05/16 09:10 Dose: Not Given Atenolol (Tenormin) 25 mg PO DAILY [facility] Stop: 10/30/16 08:59 Last Admin: 09/05/16 09:10 Dose: Not Given Docusate Sodium (Colace) 100 mg PO BID [facility] Stop: 10/30/16 08:59 Last Admin: 09/05/16 09:10 Dose: Not Given Escitalopram Oxalate (Lexapro) 5 mg PO DAILY [facility] PRN Reason: Protocol Stop: 10/31/16 08:59 Last Admin: 09/05/16 09:10 Dose: Not Given Levofloxacin (Levaquin) 500 mg PO DAILY [facility] Stop: 10/31/16 08:59 Last Admin: 09/05/16 09:10 Dose: Not Given Levothyroxine Sodium (Synthroid) 0.125 mg PO QDAC [facility] Stop: 10/30/16 07:29 Last Admin: 09/05/16 09:09 Dose: Not Given Lisinopril (Zestril) 20 mg PO DAILY [facility] Stop: 10/30/16 08:59 Last Admin: 09/05/16 09:10 Dose: Not Given Magnesium Hydroxide (Milk Of Magnesia) 30 ml PO DAILY PRN PRN Reason: Constipation Stop: 10/29/16 23:25 Olanzapine (Zyprexa) 15 mg PO DAILY [facility] PRN Reason: Protocol Stop: 11/04/16 12:26 Sodium Chloride (Nacl Tab) 1 gm PO TID [facility] Stop: 10/30/16 20:59 Last Admin: 09/05/16 09:10 Dose: Not Given General: demented HEENT: NC/AT, PERRLA Neck: Supple, No JVD Lungs: CTAB Cardiovascular: RRR, Normal S1, Normal S2 Abdomen: soft non-tender, globular, positive bowel sound Extremities: excoriation, contracture Neurological: no change, disorganized, unable to follow command - Procedures Procedures: Procedures Procedure Code Date APPENDECTOMY ADD-ON 22978 08/04/15 BYPASS TRANSVERSE COLON TO CUTANEOUS, OPEN APPROACH [id number] 08/04/15 COLOSTOMY 71735 08/04/15 EXCISION OF LARGE INTESTINE, OPEN APPROACH [id number] 08/04/15 GROUP PSYCHOTHERAPY 31713 07/31/15 GROUP PSYCHOTHERAPY GZHZZZZ 07/31/15 GROUP PSYCHOTHERAPY 08619 04/02/15 GROUP PSYCHOTHERAPY GZHZZZZ 04/02/15 OTHER GROUP THERAPY 94.44 11/07/14 PARTIAL REMOVAL OF COLON 70376 08/04/15 RECREATIONAL THERAPY 93.81 02/21/10 RESECTION OF APPENDIX, OPEN APPROACH [id number] 08/04/15 Internal Medicine Assmt/Plan - Assessment Assessment: Urinary tract infection, hyponatremia, hypertension, hypothyroidism, dementia, status post colostomy, rectal prolapse repair, and hernia repair. - Plan Plan: cont on antibiotic cont on nacl fall precaution monitor na level [place]
--- NOTE | 2016-09-05 23:09 | Progress Notes ---
DATE: 09/05/2016 Case was discussed with staff of the patient, reviewed records. The patient continues to have episodes of agitation, yelling and screaming, throwing stuff, throwing pieces, unpredictable, impulsive, and needing redirection. She has been compliant with the medications with no side effects, no sedation, and no nausea. I will be increasing her Zyprexa to 15 mg at bedtime to help with her agitation, out of control behavior, very poor insight, rambling speech, and agitated behavior, ____ no side effects with the medication, no sedation, no nausea, and no extrapyramidal symptoms. We will continue with the patient in group therapy, milieu therapy, and adjust the medication as needed. JOB# [id number]
[2016-09-06] MEDS: Levothyroxine 0.125 Mg Tab PO SCH (06:48)
[2016-09-06] MEDS: Escitalopram Oxalate 5 mg Tab PO SCH (08:59)
[2016-09-06] MEDS: Multivitamin w/ Minerals Tab PO SCH (08:59)
[2016-09-06] MEDS ORDERED: Haloperidol Lactate 5 mg/mL 1mL Vial IM ONE (11:22)
--- NOTE | 2016-09-06 13:57 | Internal Medicine Prog Note ---
Internal Medicine Subjective - Subjective Service Date: 09/06/16 Patient seen and examined:: with staff Patient is:: awake Per staff patient is:: no adverse event Internal Medicine Objective - Results Result Diagrams: 08/30/16 14:15 08/30/16 14:15 Recent Labs: Laboratory Last Values WBC 8.1 Th/cmm (4.8-10.8) 08/30/16 14:15 RBC 4.32 Mil/cmm (3.80-5.20) 08/30/16 14:15 Hgb 12.2 gm/dL (11.7-16.1) 08/30/16 14:15 Hct 35.6 % (35.0-45.0) 08/30/16 14:15 MCV 82.4 fl (81-100) 08/30/16 14:15 MCH 28.2 pg (27.0-31.0) 08/30/16 14:15 MCHC Differential 34.2 pg (28.0-36.0) 08/30/16 14:15 RDW 13.5 % (11.5-20.0) 08/30/16 14:15 Plt Count 370 Th/cmm (150-400) D 08/30/16 14:15 MPV 6.7 fl 08/30/16 14:15 Neutrophils % 65.7 % (40.0-80.0) 08/30/16 14:15 Lymphocytes % 24.0 % (20.0-50.0) 08/30/16 14:15 Monocytes % 7.8 % (2.0-10.0) 08/30/16 14:15 Eosinophils % 1.7 % (0.0-5.0) 08/30/16 14:15 Basophils % 0.8 % (0.0-2.0) 08/30/16 14:15 Sodium 121 mEq/L (136-145) L 08/30/16 14:15 Potassium 4.3 mEq/L (3.5-5.1) 08/30/16 14:15 Chloride 91 mEq/L (98-107) L 08/30/16 14:15 Carbon Dioxide 26.2 mEq/L (21.0-31.0) 08/30/16 14:15 Anion Gap 8.1 (7.0-16.0) 08/30/16 14:15 BUN 8 mg/dL (7-25) 08/30/16 14:15 Creatinine 0.5 mg/dL (0.6-1.2) L 08/30/16 14:15 Est GFR ( Amer) TNP 08/30/16 14:15 Est GFR (Non-Af Amer) TNP 08/30/16 14:15 BUN/Creatinine Ratio 16.0 08/30/16 14:15 Glucose 153 mg/dL (70-105) H 08/30/16 14:15 Calcium 9.5 mg/dL (8.6-10.3) 08/30/16 14:15 Total Bilirubin 0.3 mg/dL (0.3-1.0) 08/30/16 14:15 GGTP 17 IU/L (0-60) 08/30/16 14:15 AST 21 U/L (13-39) 08/30/16 14:15 ALT 17 U/L (7-52) 08/30/16 14:15 Alkaline Phosphatase 89 U/L (34-104) 08/30/16 14:15 Total Protein 7.3 gm/dL (6.0-8.3) 08/30/16 14:15 Albumin 4.1 gm/dL (3.7-5.3) 08/30/16 14:15 Globulin 3.2 gm/dL 08/30/16 14:15 Albumin/Globulin Ratio 1.3 (1.0-1.8) 08/30/16 14:15 Lipase 22 U/L (11-82) 08/30/16 14:15 TSH 1.19 uIU/ml (0.34-5.60) 08/30/16 14:15 Urine Source CLEAN C 08/30/16 14:00 Urine Color YELLOW 08/30/16 14:00 Urine Clarity SLIGHT HAZY (CLEAR) 08/30/16 14:00 Urine pH 6.5 08/30/16 14:00 Ur Specific [place] 1.015 (1.005-1.030) 08/30/16 14:00 Urine Protein NEGATIVE mg/dL (NEGATIVE) 08/30/16 14:00 Urine Glucose (UA) NEGATIVE mg/dL (NEGATIVE) 08/30/16 14:00 Urine Ketones NEGATIVE mg/dL (NEGATIVE) 08/30/16 14:00 Urine Blood TRACE (NEGATIVE) 08/30/16 14:00 Urine Nitrate NEGATIVE (NEGATIVE) 08/30/16 14:00 Urine Bilirubin NEGATIVE (NEGATIVE) 08/30/16 14:00 Urine Urobilinogen 0.2 E.U./dL (0.2 - 1.0) 08/30/16 14:00 Ur Leukocyte Esterase LARGE (NEGATIVE) H 08/30/16 14:00 Urine RBC 2-5 /hpf (0-5) 08/30/16 14:00 Urine WBC 25-50 /hpf (0-5) H 08/30/16 14:00 Ur Epithelial Cells OCCASIONAL /lpf (FEW) 08/30/16 14:00 Urine Bacteria 1+ /hpf (NONE SEEN) H 08/30/16 14:00 Salicylates < 25.0 mg/L (30.0-100.0) L 08/30/16 14:15 Urine Opiates Screen NEGATIVE (NEGATIVE) 08/30/16 14:00 Urine Methadone Screen NEGATIVE (NEGATIVE) 08/30/16 14:00 Acetaminophen < 10.0 ug/mL (10.0-30.0) L 08/30/16 14:15 Ur Barbiturates Screen NEGATIVE (NEGATIVE) 08/30/16 14:00 Ur Tricyclics Screen NEGATIVE (NEGATIVE) 08/30/16 14:00 Ur Phencyclidine Scrn NEGATIVE (NEGATIVE) 08/30/16 14:00 Amphetamines Screen NEGATIVE (NEGATIVE) 08/30/16 14:00 U Methamphetamines Scrn NEGATIVE (NEGATIVE) 08/30/16 14:00 U Benzodiazepines Scrn NEGATIVE (NEGATIVE) 08/30/16 14:00 U Cocaine Metab Screen NEGATIVE (NEGATIVE) 08/30/16 14:00 U Cannabinoids Screen NEGATIVE (NEGATIVE) 08/30/16 14:00 Ethyl Alcohol < 10 mg/dL (0-10) 08/30/16 14:15 RPR NONREACTIVE (NONREACTIVE) 08/30/16 14:15 - Physical Exam Vitals and I&O: Vital Signs Temp 98.4 F 09/06/16 06:21 Pulse 105 09/06/16 08:59 Resp 20 09/06/16 06:21 BP 155/77 09/06/16 08:59 Pulse Ox 93 09/06/16 06:21 Intake & Output 06/09/06/16 09/06/16 18:59 06:59 18:59 Intake Total 950 240 Output Total 450 Balance 500 240 Weight (lbs) 176 lb Intake: Oral 950 240 Output: Stool 450 Other: # Voids 4 3 # Bowel Movements 0 Active Medications: Current Medications Acetaminophen (Tylenol) 650 mg PO Q4H PRN PRN Reason: PAIN Stop: 10/29/16 23:25 Ascorbic Acid (Vitamin C) 500 mg PO DAILY [facility] Stop: 10/30/16 08:59 Last Admin: 09/06/16 08:59 Dose: 500 mg Atenolol (Tenormin) 25 mg PO DAILY [facility] Stop: 10/30/16 08:59 Last Admin: 09/06/16 08:59 Dose: 25 mg Docusate Sodium (Colace) 100 mg PO BID [facility] Stop: 10/30/16 08:59 Last Admin: 09/06/16 08:59 Dose: 100 mg Escitalopram Oxalate (Lexapro) 5 mg PO DAILY [facility] PRN Reason: Protocol Stop: 10/31/16 08:59 Last Admin: 09/06/16 08:59 Dose: 5 mg Levofloxacin (Levaquin) 500 mg PO DAILY [facility] Stop: 10/31/16 08:59 Last Admin: 09/06/16 08:59 Dose: 500 mg Levothyroxine Sodium (Synthroid) 0.125 mg PO QDAC [facility] Stop: 10/30/16 07:29 Last Admin: 09/06/16 06:48 Dose: 0.125 mg Lisinopril (Zestril) 20 mg PO DAILY [facility] Stop: 10/30/16 08:59 Last Admin: 09/06/16 08:59 Dose: 20 mg Magnesium Hydroxide (Milk Of Magnesia) 30 ml PO DAILY PRN PRN Reason: Constipation Stop: 10/29/16 23:25 Olanzapine (Zyprexa) 20 mg PO DAILY [facility] PRN Reason: Protocol Stop: 11/05/16 11:31 Sodium Chloride (Nacl Tab) 1 gm PO TID [facility] Stop: 10/30/16 20:59 Last Admin: 09/06/16 08:59 Dose: 1 gm General: alert HEENT: NC/AT, PERRLA Neck: Supple Lungs: CTAB Cardiovascular: RRR, Normal S1, Normal S2, without murmur Abdomen: soft non-tender, non-distended Neurological: no change - Procedures Procedures: Procedures Procedure Code Date APPENDECTOMY ADD-ON 77280 08/04/15 BYPASS TRANSVERSE COLON TO CUTANEOUS, OPEN APPROACH [id number] 08/04/15 COLOSTOMY 27043 08/04/15 EXCISION OF LARGE INTESTINE, OPEN APPROACH [id number] 08/04/15 GROUP PSYCHOTHERAPY 45840 07/31/15 GROUP PSYCHOTHERAPY GZHZZZZ 07/31/15 GROUP PSYCHOTHERAPY 24360 04/02/15 GROUP PSYCHOTHERAPY GZHZZZZ 04/02/15 OTHER GROUP THERAPY 94.44 11/07/14 PARTIAL REMOVAL OF COLON 72656 08/04/15 RECREATIONAL THERAPY 93.81 02/21/10 RESECTION OF APPENDIX, OPEN APPROACH [id number] 08/04/15 Internal Medicine Assmt/Plan - Assessment Assessment: Urinary tract infection hyponatremia hypertension hypothyroidism dementia status post colostomy rectal prolapse repair hernia repai. - Plan Plan: encourage fluids continue levaquin cpm
--- NOTE | 2016-09-07 01:14 | Progress Notes ---
DATE: 09/06/2016 SUBJECTIVE: Case was discussed with staff of the patient, reviewed records. The patient has been acting out. One day she takes her medication, the next day she doesn't, but in general, she did take her medication today; however, she is still acting out. She was naked. She has been pulling her colostomy bag off. She is still unpredictable, impulsive, psychotic, delusional, rambling speech, angry, irritable. I will be increasing her Zyprexa dose to 20 mg a day and so far no side effects, no sedation, no nausea. We will continue to work with the patient in group therapy, milieu therapy, adjust medication as needed. JOB# [id number]
[2016-09-07] MEDS: Levothyroxine 0.125 Mg Tab PO SCH (06:31)
[2016-09-07] MEDS: Escitalopram Oxalate 5 mg Tab PO SCH (08:47)
[2016-09-07] MEDS: Multivitamin w/ Minerals Tab PO SCH (08:47)
--- NOTE | 2016-09-07 13:17 | Internal Medicine Prog Note ---
Internal Medicine Subjective - Subjective Service Date: 09/07/16 Patient seen and examined:: with staff Patient is:: awake Per staff patient is:: no adverse event Internal Medicine Objective - Results Result Diagrams: 08/30/16 14:15 08/30/16 14:15 Recent Labs: Laboratory Last Values WBC 8.1 Th/cmm (4.8-10.8) 08/30/16 14:15 RBC 4.32 Mil/cmm (3.80-5.20) 08/30/16 14:15 Hgb 12.2 gm/dL (11.7-16.1) 08/30/16 14:15 Hct 35.6 % (35.0-45.0) 08/30/16 14:15 MCV 82.4 fl (81-100) 08/30/16 14:15 MCH 28.2 pg (27.0-31.0) 08/30/16 14:15 MCHC Differential 34.2 pg (28.0-36.0) 08/30/16 14:15 RDW 13.5 % (11.5-20.0) 08/30/16 14:15 Plt Count 370 Th/cmm (150-400) D 08/30/16 14:15 MPV 6.7 fl 08/30/16 14:15 Neutrophils % 65.7 % (40.0-80.0) 08/30/16 14:15 Lymphocytes % 24.0 % (20.0-50.0) 08/30/16 14:15 Monocytes % 7.8 % (2.0-10.0) 08/30/16 14:15 Eosinophils % 1.7 % (0.0-5.0) 08/30/16 14:15 Basophils % 0.8 % (0.0-2.0) 08/30/16 14:15 Sodium 121 mEq/L (136-145) L 08/30/16 14:15 Potassium 4.3 mEq/L (3.5-5.1) 08/30/16 14:15 Chloride 91 mEq/L (98-107) L 08/30/16 14:15 Carbon Dioxide 26.2 mEq/L (21.0-31.0) 08/30/16 14:15 Anion Gap 8.1 (7.0-16.0) 08/30/16 14:15 BUN 8 mg/dL (7-25) 08/30/16 14:15 Creatinine 0.5 mg/dL (0.6-1.2) L 08/30/16 14:15 Est GFR ( Amer) TNP 08/30/16 14:15 Est GFR (Non-Af Amer) TNP 08/30/16 14:15 BUN/Creatinine Ratio 16.0 08/30/16 14:15 Glucose 153 mg/dL (70-105) H 08/30/16 14:15 Calcium 9.5 mg/dL (8.6-10.3) 08/30/16 14:15 Total Bilirubin 0.3 mg/dL (0.3-1.0) 08/30/16 14:15 GGTP 17 IU/L (0-60) 08/30/16 14:15 AST 21 U/L (13-39) 08/30/16 14:15 ALT 17 U/L (7-52) 08/30/16 14:15 Alkaline Phosphatase 89 U/L (34-104) 08/30/16 14:15 Total Protein 7.3 gm/dL (6.0-8.3) 08/30/16 14:15 Albumin 4.1 gm/dL (3.7-5.3) 08/30/16 14:15 Globulin 3.2 gm/dL 08/30/16 14:15 Albumin/Globulin Ratio 1.3 (1.0-1.8) 08/30/16 14:15 Lipase 22 U/L (11-82) 08/30/16 14:15 TSH 1.19 uIU/ml (0.34-5.60) 08/30/16 14:15 Urine Source CLEAN C 08/30/16 14:00 Urine Color YELLOW 08/30/16 14:00 Urine Clarity SLIGHT HAZY (CLEAR) 08/30/16 14:00 Urine pH 6.5 08/30/16 14:00 Ur Specific [place] 1.015 (1.005-1.030) 08/30/16 14:00 Urine Protein NEGATIVE mg/dL (NEGATIVE) 08/30/16 14:00 Urine Glucose (UA) NEGATIVE mg/dL (NEGATIVE) 08/30/16 14:00 Urine Ketones NEGATIVE mg/dL (NEGATIVE) 08/30/16 14:00 Urine Blood TRACE (NEGATIVE) 08/30/16 14:00 Urine Nitrate NEGATIVE (NEGATIVE) 08/30/16 14:00 Urine Bilirubin NEGATIVE (NEGATIVE) 08/30/16 14:00 Urine Urobilinogen 0.2 E.U./dL (0.2 - 1.0) 08/30/16 14:00 Ur Leukocyte Esterase LARGE (NEGATIVE) H 08/30/16 14:00 Urine RBC 2-5 /hpf (0-5) 08/30/16 14:00 Urine WBC 25-50 /hpf (0-5) H 08/30/16 14:00 Ur Epithelial Cells OCCASIONAL /lpf (FEW) 08/30/16 14:00 Urine Bacteria 1+ /hpf (NONE SEEN) H 08/30/16 14:00 Salicylates < 25.0 mg/L (30.0-100.0) L 08/30/16 14:15 Urine Opiates Screen NEGATIVE (NEGATIVE) 08/30/16 14:00 Urine Methadone Screen NEGATIVE (NEGATIVE) 08/30/16 14:00 Acetaminophen < 10.0 ug/mL (10.0-30.0) L 08/30/16 14:15 Ur Barbiturates Screen NEGATIVE (NEGATIVE) 08/30/16 14:00 Ur Tricyclics Screen NEGATIVE (NEGATIVE) 08/30/16 14:00 Ur Phencyclidine Scrn NEGATIVE (NEGATIVE) 08/30/16 14:00 Amphetamines Screen NEGATIVE (NEGATIVE) 08/30/16 14:00 U Methamphetamines Scrn NEGATIVE (NEGATIVE) 08/30/16 14:00 U Benzodiazepines Scrn NEGATIVE (NEGATIVE) 08/30/16 14:00 U Cocaine Metab Screen NEGATIVE (NEGATIVE) 08/30/16 14:00 U Cannabinoids Screen NEGATIVE (NEGATIVE) 08/30/16 14:00 Ethyl Alcohol < 10 mg/dL (0-10) 08/30/16 14:15 RPR NONREACTIVE (NONREACTIVE) 08/30/16 14:15 - Physical Exam Vitals and I&O: Vital Signs Temp 97.8 F 09/07/16 06:10 Pulse 67 09/07/16 08:48 Resp 20 09/07/16 06:10 BP 138/78 09/07/16 08:48 Pulse Ox 98 09/07/16 06:10 Intake & Output 06/09/07/16 09/07/16 18:59 06:59 18:59 Intake Total 1200 240 Output Total 250 Balance 950 240 Weight (lbs) 149 lb 14.4 oz Intake: Oral 1200 240 Output: Stool 250 Other: # Voids 5 2 # Bowel Movements 1 Active Medications: Current Medications Acetaminophen (Tylenol) 650 mg PO Q4H PRN PRN Reason: PAIN Stop: 10/29/16 23:25 Ascorbic Acid (Vitamin C) 500 mg PO DAILY [facility] Stop: 10/30/16 08:59 Last Admin: 09/07/16 08:46 Dose: 500 mg Atenolol (Tenormin) 25 mg PO DAILY [facility] Stop: 10/30/16 08:59 Last Admin: 09/07/16 08:48 Dose: 25 mg Docusate Sodium (Colace) 100 mg PO BID [facility] Stop: 10/30/16 08:59 Last Admin: 09/07/16 08:47 Dose: 100 mg Escitalopram Oxalate (Lexapro) 5 mg PO DAILY [facility] PRN Reason: Protocol Stop: 10/31/16 08:59 Last Admin: 09/07/16 08:47 Dose: 5 mg Levofloxacin (Levaquin) 500 mg PO DAILY [facility] Stop: 10/31/16 08:59 Last Admin: 09/07/16 08:46 Dose: 500 mg Levothyroxine Sodium (Synthroid) 0.125 mg PO QDAC [facility] Stop: 10/30/16 07:29 Last Admin: 09/07/16 06:31 Dose: 0.125 mg Lisinopril (Zestril) 20 mg PO DAILY [facility] Stop: 10/30/16 08:59 Last Admin: 09/07/16 08:48 Dose: 20 mg Magnesium Hydroxide (Milk Of Magnesia) 30 ml PO DAILY PRN PRN Reason: Constipation Stop: 10/29/16 23:25 Olanzapine (Zyprexa) 20 mg PO DAILY [facility] PRN Reason: Protocol Stop: 11/05/16 11:31 Last Admin: 09/07/16 08:47 Dose: 20 mg Sodium Chloride (Nacl Tab) 1 gm PO TID [facility] Stop: 10/30/16 20:59 Last Admin: 09/07/16 08:47 Dose: 1 gm General: alert HEENT: NC/AT, PERRLA Neck: Supple Lungs: CTAB Cardiovascular: RRR, Normal S1, Normal S2, without murmur Abdomen: soft non-tender, non-distended Extremities: clear - Procedures Procedures: Procedures Procedure Code Date APPENDECTOMY ADD-ON 13562 08/04/15 BYPASS TRANSVERSE COLON TO CUTANEOUS, OPEN APPROACH [id number] 08/04/15 COLOSTOMY 65628 08/04/15 EXCISION OF LARGE INTESTINE, OPEN APPROACH [id number] 08/04/15 GROUP PSYCHOTHERAPY 41743 07/31/15 GROUP PSYCHOTHERAPY GZHZZZZ 07/31/15 GROUP PSYCHOTHERAPY 58967 04/02/15 GROUP PSYCHOTHERAPY GZHZZZZ 04/02/15 OTHER GROUP THERAPY 94.44 11/07/14 PARTIAL REMOVAL OF COLON 89449 08/04/15 RECREATIONAL THERAPY 93.81 02/21/10 RESECTION OF APPENDIX, OPEN APPROACH [id number] 08/04/15 Internal Medicine Assmt/Plan - Assessment Assessment: Urinary tract infection hyponatremia hypertension hypothyroidism dementia status post colostomy rectal prolapse repair hernia repai. - Plan Plan: encourage fluids continue levaquin cpm Nutritional Asmnt/Malnutr-PDOC - Dietary Evaluation Malnutrition Findings (Please click <Entered> for more info): Nutritional Asmnt/Malnutrition Start: 09/06/16 15: 04 Text: Status: Complete Freq: Document 09/06/16 15:04 GSUN (Rec: 09/06/16 15:21 GSUN [email or web address]) Nutritional Asmnt/Malnutrition Patient General Information Nutritional Screening Diagnosis Diagnosis UTI, major depression recurrent with psychosis, r/o schizoaffective disorde Pertinent Medical Hx/Surgical Hx Dementia, HTN, hypothyroidism, s/p colostomy secondary to hernia and rectal prolapse repair. Subjective Information 76 year old female. Visited pt during meal time, pt was eating in bed without difficulties, appeared easily irritable. Pt did not respond to RD questions and became combative when RD got near. Obtained CBW via bedscale. Observed lunch 100% consumed. Avg PO intake 100% since adm, meeting nutritional needs. Pt appeared overweight without significant wasting noted. Current Diet Order/ Nutrition Support [facility] chopped Pertinent Medications Vitamin C, Colace, Levaquin, Synthroid, MOM Pertinent Labs 08/30: glucose 153H (no DM noted in H&P) Nutritional Hx/Data Height 5 ft 3 in Height (Calculated Centimeters) 160.0 Current Weight (lbs) 149 lb 14.4 oz Weight (Calculated Kilograms) 68.0 Weight (Calculated Grams) 74749.5 [place] Body Weight 115 Weight Status Overweight GI Symptoms Food Allergies No Usual diet at home [place]: [facility] soft Skin Integrity/Comment: Fabrizio Santos. alcohol rubber: scratches. Current %PO Good (75-100%) Estimated Nutritional Goals Calories/Kcals/Kg IBW 115lb/52.3kg Kcals Calculated 1308-1569kcal (25-30kcal/kg) Protein g/kg: IBW Protein Calculated 52g (1g/kg) Fluid: ml 1308-1569ml (1ml/kcal) Nutritional Problem 1. Problem Problem No nutritional problem at this time. Intervention/Recommendation Comments 1. Continue with current diet order. Avg PO intake is adequate. Expected Outcomes/Goals Expected Outcomes/Goals 1. PO intake continue to meet at least 75% of estimated nutritional needs.
--- NOTE | 2016-09-07 19:19 | Progress Notes ---
DATE: 09/07/2016 SUBJECTIVE: Case was discussed with staff of the patient, reviewed records. The patient continues to be irritable, continues to be acting bizarre, inappropriate, naked in her bed, throwing her colostomy bag very often. Continues to have poor insight. I did increase her Zyprexa dose yesterday so it is too early to make any further changes. No side effects with the medication, no sedation, no nausea, no extrapyramidal symptoms. We will continue to work with the patient in group therapy, milieu therapy, adjust medication as needed. JOB# [id number]
[2016-09-08] MEDS: Levothyroxine 0.125 Mg Tab PO SCH (06:45)
[2016-09-08] MEDS: Escitalopram Oxalate 5 mg Tab PO SCH (09:16)
[2016-09-08] MEDS: Multivitamin w/ Minerals Tab PO SCH (09:17)
--- NOTE | 2016-09-08 14:42 | Internal Medicine Prog Note ---
Internal Medicine Subjective - Subjective Service Date: 09/08/16 Patient seen and examined:: with staff Patient is:: awake Per staff patient has:: no adverse event Internal Medicine Objective - Results Result Diagrams: 08/30/16 14:15 08/30/16 14:15 Recent Labs: Laboratory Last Values WBC 8.1 Th/cmm (4.8-10.8) 08/30/16 14:15 RBC 4.32 Mil/cmm (3.80-5.20) 08/30/16 14:15 Hgb 12.2 gm/dL (11.7-16.1) 08/30/16 14:15 Hct 35.6 % (35.0-45.0) 08/30/16 14:15 MCV 82.4 fl (81-100) 08/30/16 14:15 MCH 28.2 pg (27.0-31.0) 08/30/16 14:15 MCHC Differential 34.2 pg (28.0-36.0) 08/30/16 14:15 RDW 13.5 % (11.5-20.0) 08/30/16 14:15 Plt Count 370 Th/cmm (150-400) D 08/30/16 14:15 MPV 6.7 fl 08/30/16 14:15 Neutrophils % 65.7 % (40.0-80.0) 08/30/16 14:15 Lymphocytes % 24.0 % (20.0-50.0) 08/30/16 14:15 Monocytes % 7.8 % (2.0-10.0) 08/30/16 14:15 Eosinophils % 1.7 % (0.0-5.0) 08/30/16 14:15 Basophils % 0.8 % (0.0-2.0) 08/30/16 14:15 Sodium 121 mEq/L (136-145) L 08/30/16 14:15 Potassium 4.3 mEq/L (3.5-5.1) 08/30/16 14:15 Chloride 91 mEq/L (98-107) L 08/30/16 14:15 Carbon Dioxide 26.2 mEq/L (21.0-31.0) 08/30/16 14:15 Anion Gap 8.1 (7.0-16.0) 08/30/16 14:15 BUN 8 mg/dL (7-25) 08/30/16 14:15 Creatinine 0.5 mg/dL (0.6-1.2) L 08/30/16 14:15 Est GFR ( Amer) TNP 08/30/16 14:15 Est GFR (Non-Af Amer) TNP 08/30/16 14:15 BUN/Creatinine Ratio 16.0 08/30/16 14:15 Glucose 153 mg/dL (70-105) H 08/30/16 14:15 Calcium 9.5 mg/dL (8.6-10.3) 08/30/16 14:15 Total Bilirubin 0.3 mg/dL (0.3-1.0) 08/30/16 14:15 GGTP 17 IU/L (0-60) 08/30/16 14:15 AST 21 U/L (13-39) 08/30/16 14:15 ALT 17 U/L (7-52) 08/30/16 14:15 Alkaline Phosphatase 89 U/L (34-104) 08/30/16 14:15 Total Protein 7.3 gm/dL (6.0-8.3) 08/30/16 14:15 Albumin 4.1 gm/dL (3.7-5.3) 08/30/16 14:15 Globulin 3.2 gm/dL 08/30/16 14:15 Albumin/Globulin Ratio 1.3 (1.0-1.8) 08/30/16 14:15 Lipase 22 U/L (11-82) 08/30/16 14:15 TSH 1.19 uIU/ml (0.34-5.60) 08/30/16 14:15 Urine Source CLEAN C 08/30/16 14:00 Urine Color YELLOW 08/30/16 14:00 Urine Clarity SLIGHT HAZY (CLEAR) 08/30/16 14:00 Urine pH 6.5 08/30/16 14:00 Ur Specific [place] 1.015 (1.005-1.030) 08/30/16 14:00 Urine Protein NEGATIVE mg/dL (NEGATIVE) 08/30/16 14:00 Urine Glucose (UA) NEGATIVE mg/dL (NEGATIVE) 08/30/16 14:00 Urine Ketones NEGATIVE mg/dL (NEGATIVE) 08/30/16 14:00 Urine Blood TRACE (NEGATIVE) 08/30/16 14:00 Urine Nitrate NEGATIVE (NEGATIVE) 08/30/16 14:00 Urine Bilirubin NEGATIVE (NEGATIVE) 08/30/16 14:00 Urine Urobilinogen 0.2 E.U./dL (0.2 - 1.0) 08/30/16 14:00 Ur Leukocyte Esterase LARGE (NEGATIVE) H 08/30/16 14:00 Urine RBC 2-5 /hpf (0-5) 08/30/16 14:00 Urine WBC 25-50 /hpf (0-5) H 08/30/16 14:00 Ur Epithelial Cells OCCASIONAL /lpf (FEW) 08/30/16 14:00 Urine Bacteria 1+ /hpf (NONE SEEN) H 08/30/16 14:00 Salicylates < 25.0 mg/L (30.0-100.0) L 08/30/16 14:15 Urine Opiates Screen NEGATIVE (NEGATIVE) 08/30/16 14:00 Urine Methadone Screen NEGATIVE (NEGATIVE) 08/30/16 14:00 Acetaminophen < 10.0 ug/mL (10.0-30.0) L 08/30/16 14:15 Ur Barbiturates Screen NEGATIVE (NEGATIVE) 08/30/16 14:00 Ur Tricyclics Screen NEGATIVE (NEGATIVE) 08/30/16 14:00 Ur Phencyclidine Scrn NEGATIVE (NEGATIVE) 08/30/16 14:00 Amphetamines Screen NEGATIVE (NEGATIVE) 08/30/16 14:00 U Methamphetamines Scrn NEGATIVE (NEGATIVE) 08/30/16 14:00 U Benzodiazepines Scrn NEGATIVE (NEGATIVE) 08/30/16 14:00 U Cocaine Metab Screen NEGATIVE (NEGATIVE) 08/30/16 14:00 U Cannabinoids Screen NEGATIVE (NEGATIVE) 08/30/16 14:00 Ethyl Alcohol < 10 mg/dL (0-10) 08/30/16 14:15 RPR NONREACTIVE (NONREACTIVE) 08/30/16 14:15 - Physical Exam Vitals and I&O: Vital Signs Temp 97.4 F 09/08/16 07:04 Pulse 92 09/08/16 09:17 Resp 18 09/08/16 07:04 BP 151/76 09/08/16 09:17 Pulse Ox 97 09/08/16 07:04 Intake & Output 06/09/08/16 09/08/16 18:59 06:59 18:59 Intake Total 1100 Balance 1100 Intake: Oral 1100 Other: # Voids 3 2 # Bowel Movements 1 Active Medications: Current Medications Acetaminophen (Tylenol) 650 mg PO Q4H PRN PRN Reason: PAIN Stop: 10/29/16 23:25 Ascorbic Acid (Vitamin C) 500 mg PO DAILY NICOLE Stop: 10/30/16 08:59 Last Admin: 09/08/16 09:16 Dose: 500 mg Atenolol (Tenormin) 25 mg PO DAILY [facility] Stop: 10/30/16 08:59 Last Admin: 09/08/16 09:17 Dose: 25 mg Docusate Sodium (Colace) 100 mg PO BID [facility] Stop: 10/30/16 08:59 Last Admin: 09/08/16 09:20 Dose: Not Given Escitalopram Oxalate (Lexapro) 10 mg PO DAILY [facility] PRN Reason: Protocol Stop: 11/07/16 11:26 Levofloxacin (Levaquin) 500 mg PO DAILY [facility] Stop: 10/31/16 08:59 Last Admin: 09/08/16 09:17 Dose: 500 mg Levothyroxine Sodium (Synthroid) 0.125 mg PO QDAC [facility] Stop: 10/30/16 07:29 Last Admin: 09/08/16 06:45 Dose: 0.125 mg Lisinopril (Zestril) 20 mg PO DAILY [facility] Stop: 10/30/16 08:59 Last Admin: 09/08/16 09:16 Dose: 20 mg Magnesium Hydroxide (Milk Of Magnesia) 30 ml PO DAILY PRN PRN Reason: Constipation Stop: 10/29/16 23:25 Olanzapine (Zyprexa) 25 mg PO DAILY [facility] PRN Reason: Protocol Stop: 11/07/16 11:26 Sodium Chloride (Nacl Tab) 1 gm PO TID [facility] Stop: 10/30/16 20:59 Last Admin: 09/08/16 14:11 Dose: Not Given General: weak HEENT: NC/AT, PERRLA Neck: Supple - Procedures Procedures: Procedures Procedure Code Date APPENDECTOMY ADD-ON 27891 08/04/15 BYPASS TRANSVERSE COLON TO CUTANEOUS, OPEN APPROACH [id number] 08/04/15 COLOSTOMY 05039 08/04/15 EXCISION OF LARGE INTESTINE, OPEN APPROACH [id number] 08/04/15 GROUP PSYCHOTHERAPY 35346 07/31/15 GROUP PSYCHOTHERAPY GZHZZZZ 07/31/15 GROUP PSYCHOTHERAPY 64713 04/02/15 GROUP PSYCHOTHERAPY GZHZZZZ 04/02/15 OTHER GROUP THERAPY 94.44 11/07/14 PARTIAL REMOVAL OF COLON 76286 08/04/15 RECREATIONAL THERAPY 93.81 02/21/10 RESECTION OF APPENDIX, OPEN APPROACH [id number] 08/04/15 Internal Medicine Assmt/Plan - Assessment Assessment: Urinary tract infection hyponatremia hypertension hypothyroidism dementia status post colostomy rectal prolapse repair hernia repai. - Plan Plan: encourage fluids cpm Nutritional Asmnt/Malnutr-PDOC - Dietary Evaluation Malnutrition Findings (Please click <Entered> for more info): Nutritional Asmnt/Malnutrition Start: 09/06/16 15: 04 Text: Status: Complete Freq: Document 09/06/16 15:04 GSUN (Rec: 09/06/16 15:21 [email or web address]) Nutritional Asmnt/Malnutrition Patient General Information Nutritional Screening Diagnosis Diagnosis UTI, major depression recurrent with psychosis, r/o schizoaffective disorde Pertinent Medical Hx/Surgical Hx Dementia, HTN, hypothyroidism, s/p colostomy secondary to hernia and rectal prolapse repair. Subjective Information 76 year old female. Visited pt during meal time, pt was eating in bed without difficulties, appeared easily irritable. Pt did not respond to RD questions and became combative when RD got near. Obtained CBW via bedscale. Observed lunch 100% consumed. Avg PO intake 100% since adm, meeting nutritional needs. Pt appeared overweight without significant wasting noted. Current Diet Order/ Nutrition Support [facility] chopped Pertinent Medications Vitamin C, Colace, Levaquin, Synthroid, MOM Pertinent Labs 08/30: glucose 153H (no DM noted in H&P) Nutritional Hx/Data Height 5 ft 3 in Height (Calculated Centimeters) 160.0 Current Weight (lbs) 149 lb 14.4 oz Weight (Calculated Kilograms) 68.0 Weight (Calculated Grams) 01379.5 [place] Body Weight 115 Weight Status Overweight GI Symptoms Food Allergies No Usual diet at home [place]: [facility] soft Skin Integrity/Comment: Fabrizio Santos. 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 Current %PO Good (75-100%) Estimated Nutritional Goals Calories/Kcals/Kg IBW 115lb/52.3kg Kcals Calculated 1308-1569kcal (25-30kcal/kg) Protein g/kg: IBW Protein Calculated 52g (1g/kg) Fluid: ml 1308-1569ml (1ml/kcal) Nutritional Problem 1. Problem Problem No nutritional problem at this time. Intervention/Recommendation Comments 1. Continue with current diet order. Avg PO intake is adequate. Expected Outcomes/Goals Expected Outcomes/Goals 1. PO intake continue to meet at least 75% of estimated nutritional needs.
--- NOTE | 2016-09-08 21:45 | Progress Notes ---
DATE: 09/08/2016 Case was discussed with staff of the patient, reviewed records. The patient continues to be psychotic, irritable, rambling, talking loud, throwing her colostomy bag, very inappropriate, unable to make safe plan for self-care, unpredictable, impulsive. I will male adjustment in both the Lexapro ____ mg a day and also I will be increasing the Zyprexa dose to ____ mg a day as she has to be on a high dose in the past and that may what she needs to help her be calmer and so far no side effects with the medication, no sedation, no nausea, no extrapyramidal symptoms. We will continue to work with the patient in group therapy, milieu therapy, adjust the medication as needed. JOB# [id number]
[2016-09-09] MEDS: Levothyroxine 0.125 Mg Tab PO SCH (06:35)
[2016-09-09] MEDS: Escitalopram Oxalate 5 mg Tab PO SCH (08:28)
[2016-09-09] MEDS: Multivitamin w/ Minerals Tab PO SCH (08:29)
--- NOTE | 2016-09-09 14:42 | Internal Medicine Prog Note ---
Internal Medicine Subjective - Subjective Service Date: 09/09/16 Patient seen and examined:: with staff Patient is:: awake Per staff patient has:: no adverse event Internal Medicine Objective - Results Result Diagrams: 08/30/16 14:15 08/30/16 14:15 Recent Labs: Laboratory Last Values WBC 8.1 Th/cmm (4.8-10.8) 08/30/16 14:15 RBC 4.32 Mil/cmm (3.80-5.20) 08/30/16 14:15 Hgb 12.2 gm/dL (11.7-16.1) 08/30/16 14:15 Hct 35.6 % (35.0-45.0) 08/30/16 14:15 MCV 82.4 fl (81-100) 08/30/16 14:15 MCH 28.2 pg (27.0-31.0) 08/30/16 14:15 MCHC Differential 34.2 pg (28.0-36.0) 08/30/16 14:15 RDW 13.5 % (11.5-20.0) 08/30/16 14:15 Plt Count 370 Th/cmm (150-400) D 08/30/16 14:15 MPV 6.7 fl 08/30/16 14:15 Neutrophils % 65.7 % (40.0-80.0) 08/30/16 14:15 Lymphocytes % 24.0 % (20.0-50.0) 08/30/16 14:15 Monocytes % 7.8 % (2.0-10.0) 08/30/16 14:15 Eosinophils % 1.7 % (0.0-5.0) 08/30/16 14:15 Basophils % 0.8 % (0.0-2.0) 08/30/16 14:15 Sodium 121 mEq/L (136-145) L 08/30/16 14:15 Potassium 4.3 mEq/L (3.5-5.1) 08/30/16 14:15 Chloride 91 mEq/L (98-107) L 08/30/16 14:15 Carbon Dioxide 26.2 mEq/L (21.0-31.0) 08/30/16 14:15 Anion Gap 8.1 (7.0-16.0) 08/30/16 14:15 BUN 8 mg/dL (7-25) 08/30/16 14:15 Creatinine 0.5 mg/dL (0.6-1.2) L 08/30/16 14:15 Est GFR ( Amer) TNP 08/30/16 14:15 Est GFR (Non-Af Amer) TNP 08/30/16 14:15 BUN/Creatinine Ratio 16.0 08/30/16 14:15 Glucose 153 mg/dL (70-105) H 08/30/16 14:15 Calcium 9.5 mg/dL (8.6-10.3) 08/30/16 14:15 Total Bilirubin 0.3 mg/dL (0.3-1.0) 08/30/16 14:15 GGTP 17 IU/L (0-60) 08/30/16 14:15 AST 21 U/L (13-39) 08/30/16 14:15 ALT 17 U/L (7-52) 08/30/16 14:15 Alkaline Phosphatase 89 U/L (34-104) 08/30/16 14:15 Total Protein 7.3 gm/dL (6.0-8.3) 08/30/16 14:15 Albumin 4.1 gm/dL (3.7-5.3) 08/30/16 14:15 Globulin 3.2 gm/dL 08/30/16 14:15 Albumin/Globulin Ratio 1.3 (1.0-1.8) 08/30/16 14:15 Lipase 22 U/L (11-82) 08/30/16 14:15 TSH 1.19 uIU/ml (0.34-5.60) 08/30/16 14:15 Urine Source CLEAN C 08/30/16 14:00 Urine Color YELLOW 08/30/16 14:00 Urine Clarity SLIGHT HAZY (CLEAR) 08/30/16 14:00 Urine pH 6.5 08/30/16 14:00 Ur Specific [place] 1.015 (1.005-1.030) 08/30/16 14:00 Urine Protein NEGATIVE mg/dL (NEGATIVE) 08/30/16 14:00 Urine Glucose (UA) NEGATIVE mg/dL (NEGATIVE) 08/30/16 14:00 Urine Ketones NEGATIVE mg/dL (NEGATIVE) 08/30/16 14:00 Urine Blood TRACE (NEGATIVE) 08/30/16 14:00 Urine Nitrate NEGATIVE (NEGATIVE) 08/30/16 14:00 Urine Bilirubin NEGATIVE (NEGATIVE) 08/30/16 14:00 Urine Urobilinogen 0.2 E.U./dL (0.2 - 1.0) 08/30/16 14:00 Ur Leukocyte Esterase LARGE (NEGATIVE) H 08/30/16 14:00 Urine RBC 2-5 /hpf (0-5) 08/30/16 14:00 Urine WBC 25-50 /hpf (0-5) H 08/30/16 14:00 Ur Epithelial Cells OCCASIONAL /lpf (FEW) 08/30/16 14:00 Urine Bacteria 1+ /hpf (NONE SEEN) H 08/30/16 14:00 Salicylates < 25.0 mg/L (30.0-100.0) L 08/30/16 14:15 Urine Opiates Screen NEGATIVE (NEGATIVE) 08/30/16 14:00 Urine Methadone Screen NEGATIVE (NEGATIVE) 08/30/16 14:00 Acetaminophen < 10.0 ug/mL (10.0-30.0) L 08/30/16 14:15 Ur Barbiturates Screen NEGATIVE (NEGATIVE) 08/30/16 14:00 Ur Tricyclics Screen NEGATIVE (NEGATIVE) 08/30/16 14:00 Ur Phencyclidine Scrn NEGATIVE (NEGATIVE) 08/30/16 14:00 Amphetamines Screen NEGATIVE (NEGATIVE) 08/30/16 14:00 U Methamphetamines Scrn NEGATIVE (NEGATIVE) 08/30/16 14:00 U Benzodiazepines Scrn NEGATIVE (NEGATIVE) 08/30/16 14:00 U Cocaine Metab Screen NEGATIVE (NEGATIVE) 08/30/16 14:00 U Cannabinoids Screen NEGATIVE (NEGATIVE) 08/30/16 14:00 Ethyl Alcohol < 10 mg/dL (0-10) 08/30/16 14:15 RPR NONREACTIVE (NONREACTIVE) 08/30/16 14:15 - Physical Exam Vitals and I&O: Vital Signs Temp 97.3 F 09/09/16 06:40 Pulse 65 09/09/16 08:29 Resp 18 09/09/16 06:40 BP 117/74 09/09/16 08:29 Pulse Ox 98 09/09/16 06:40 Intake & Output 06/09/09/16 09/09/16 18:59 06:59 18:59 Intake Total 120 Balance 120 Intake: Oral 120 Other: # Voids 2 3 Active Medications: Current Medications Acetaminophen (Tylenol) 650 mg PO Q4H PRN PRN Reason: PAIN Stop: 10/29/16 23:25 Ascorbic Acid (Vitamin C) 500 mg PO DAILY NICOLE Stop: 10/30/16 08:59 Last Admin: 09/09/16 08:28 Dose: 500 mg Atenolol (Tenormin) 25 mg PO DAILY [facility] Stop: 10/30/16 08:59 Last Admin: 09/09/16 08:29 Dose: 25 mg Docusate Sodium (Colace) 100 mg PO BID [facility] Stop: 10/30/16 08:59 Last Admin: 09/09/16 08:29 Dose: 100 mg Escitalopram Oxalate (Lexapro) 10 mg PO DAILY [facility] PRN Reason: Protocol Stop: 11/07/16 11:26 Last Admin: 09/09/16 08:28 Dose: 10 mg Levothyroxine Sodium (Synthroid) 0.125 mg PO QDAC [facility] Stop: 10/30/16 07:29 Last Admin: 09/09/16 06:35 Dose: 0.125 mg Lisinopril (Zestril) 20 mg PO DAILY [facility] Stop: 10/30/16 08:59 Last Admin: 09/09/16 08:26 Dose: 20 mg Magnesium Hydroxide (Milk Of Magnesia) 30 ml PO DAILY PRN PRN Reason: Constipation Stop: 10/29/16 23:25 Olanzapine (Zyprexa) 25 mg PO DAILY [facility] PRN Reason: Protocol Stop: 11/07/16 11:26 Last Admin: 09/09/16 08:30 Dose: 25 mg Sodium Chloride (Nacl Tab) 1 gm PO TID [facility] Stop: 10/30/16 20:59 Last Admin: 09/09/16 14:04 Dose: 1 gm General: alert HEENT: NC/AT, PERRLA Neck: Supple - Procedures Procedures: Procedures Procedure Code Date APPENDECTOMY ADD-ON 96309 08/04/15 BYPASS TRANSVERSE COLON TO CUTANEOUS, OPEN APPROACH [id number] 08/04/15 COLOSTOMY 17332 08/04/15 EXCISION OF LARGE INTESTINE, OPEN APPROACH [id number] 08/04/15 GROUP PSYCHOTHERAPY 17994 07/31/15 GROUP PSYCHOTHERAPY GZHZZZZ 07/31/15 GROUP PSYCHOTHERAPY 75768 04/02/15 GROUP PSYCHOTHERAPY GZHZZZZ 04/02/15 OTHER GROUP THERAPY 94.44 11/07/14 PARTIAL REMOVAL OF COLON 39640 08/04/15 RECREATIONAL THERAPY 93.81 02/21/10 RESECTION OF APPENDIX, OPEN APPROACH [id number] 08/04/15 Internal Medicine Assmt/Plan - Assessment Assessment: Urinary tract infection hyponatremia hypertension hypothyroidism dementia status post colostomy rectal prolapse repair hernia repai. - Plan Plan: encourage fluids cpm Nutritional Asmnt/Malnutr-PDOC - Dietary Evaluation Malnutrition Findings (Please click <Entered> for more info): Nutritional Asmnt/Malnutrition Start: 09/06/16 15: 04 Text: Status: Complete Freq: Document 09/06/16 15:04 GSUN (Rec: 09/06/16 15:21 [email or web address]) Nutritional Asmnt/Malnutrition Patient General Information Nutritional Screening Diagnosis Diagnosis UTI, major depression recurrent with psychosis, r/o schizoaffective disorde Pertinent Medical Hx/Surgical Hx Dementia, HTN, hypothyroidism, s/p colostomy secondary to hernia and rectal prolapse repair. Subjective Information 76 year old female. Visited pt during meal time, pt was eating in bed without difficulties, appeared easily irritable. Pt did not respond to RD questions and became combative when RD got near. Obtained CBW via bedscale. Observed lunch 100% consumed. Avg PO intake 100% since adm, meeting nutritional needs. Pt appeared overweight without significant wasting noted. Current Diet Order/ Nutrition Support [facility] chopped Pertinent Medications Vitamin C, Colace, Levaquin, Synthroid, MOM Pertinent Labs 08/30: glucose 153H (no DM noted in H&P) Nutritional Hx/Data Height 5 ft 3 in Height (Calculated Centimeters) 160.0 Current Weight (lbs) 149 lb 14.4 oz Weight (Calculated Kilograms) 68.0 Weight (Calculated Grams) 91443.5 [place] Body Weight 115 Weight Status Overweight GI Symptoms Food Allergies No Usual diet at home [place]: [facility] soft Skin Integrity/Comment: Fabrizio Santos. 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 Current %PO Good (75-100%) Estimated Nutritional Goals Calories/Kcals/Kg IBW 115lb/52.3kg Kcals Calculated 1308-1569kcal (25-30kcal/kg) Protein g/kg: IBW Protein Calculated 52g (1g/kg) Fluid: ml 1308-1569ml (1ml/kcal) Nutritional Problem 1. Problem Problem No nutritional problem at this time. Intervention/Recommendation Comments 1. Continue with current diet order. Avg PO intake is adequate. Expected Outcomes/Goals Expected Outcomes/Goals 1. PO intake continue to meet at least 75% of estimated nutritional needs.
--- NOTE | 2016-09-09 23:59 | Progress Notes ---
DATE: 09/09/2016 Case was discussed with staff of the patient, reviewed records. The patient is reported by the staff to be much calmer, sleeping well, eating well. She is easier to redirect, though she continues to isolate herself. Continues to be unpredictable, impulsive. Continues to be unable to make safe plan for self-care. She is sleeping better, eating better, able to feed herself today. No side effects with the medication, no sedation, no nausea, no extrapyramidal symptoms. We will continue to work with the patient in group therapy, milieu therapy, and adjust medication as needed. JOB# [id number]
[2016-09-10] MEDS: Levothyroxine 0.125 Mg Tab PO SCH (06:34)
[2016-09-10] MEDS: Escitalopram Oxalate 5 mg Tab PO SCH (09:01)
[2016-09-10] MEDS: Multivitamin w/ Minerals Tab PO SCH (09:04)
--- NOTE | 2016-09-10 09:32 | Internal Medicine Prog Note ---
Internal Medicine Subjective - Subjective Service Date: 09/10/16 Patient seen and examined:: with staff Patient is:: awake Internal Medicine Objective - Results Result Diagrams: 08/30/16 14:15 08/30/16 14:15 Recent Labs: Laboratory Last Values WBC 8.1 Th/cmm (4.8-10.8) 08/30/16 14:15 RBC 4.32 Mil/cmm (3.80-5.20) 08/30/16 14:15 Hgb 12.2 gm/dL (11.7-16.1) 08/30/16 14:15 Hct 35.6 % (35.0-45.0) 08/30/16 14:15 MCV 82.4 fl (81-100) 08/30/16 14:15 MCH 28.2 pg (27.0-31.0) 08/30/16 14:15 MCHC Differential 34.2 pg (28.0-36.0) 08/30/16 14:15 RDW 13.5 % (11.5-20.0) 08/30/16 14:15 Plt Count 370 Th/cmm (150-400) D 08/30/16 14:15 MPV 6.7 fl 08/30/16 14:15 Neutrophils % 65.7 % (40.0-80.0) 08/30/16 14:15 Lymphocytes % 24.0 % (20.0-50.0) 08/30/16 14:15 Monocytes % 7.8 % (2.0-10.0) 08/30/16 14:15 Eosinophils % 1.7 % (0.0-5.0) 08/30/16 14:15 Basophils % 0.8 % (0.0-2.0) 08/30/16 14:15 Sodium 121 mEq/L (136-145) L 08/30/16 14:15 Potassium 4.3 mEq/L (3.5-5.1) 08/30/16 14:15 Chloride 91 mEq/L (98-107) L 08/30/16 14:15 Carbon Dioxide 26.2 mEq/L (21.0-31.0) 08/30/16 14:15 Anion Gap 8.1 (7.0-16.0) 08/30/16 14:15 BUN 8 mg/dL (7-25) 08/30/16 14:15 Creatinine 0.5 mg/dL (0.6-1.2) L 08/30/16 14:15 Est GFR ( Amer) TNP 08/30/16 14:15 Est GFR (Non-Af Amer) TNP 08/30/16 14:15 BUN/Creatinine Ratio 16.0 08/30/16 14:15 Glucose 153 mg/dL (70-105) H 08/30/16 14:15 Calcium 9.5 mg/dL (8.6-10.3) 08/30/16 14:15 Total Bilirubin 0.3 mg/dL (0.3-1.0) 08/30/16 14:15 GGTP 17 IU/L (0-60) 08/30/16 14:15 AST 21 U/L (13-39) 08/30/16 14:15 ALT 17 U/L (7-52) 08/30/16 14:15 Alkaline Phosphatase 89 U/L (34-104) 08/30/16 14:15 Total Protein 7.3 gm/dL (6.0-8.3) 08/30/16 14:15 Albumin 4.1 gm/dL (3.7-5.3) 08/30/16 14:15 Globulin 3.2 gm/dL 08/30/16 14:15 Albumin/Globulin Ratio 1.3 (1.0-1.8) 08/30/16 14:15 Lipase 22 U/L (11-82) 08/30/16 14:15 TSH 1.19 uIU/ml (0.34-5.60) 08/30/16 14:15 Urine Source CLEAN C 08/30/16 14:00 Urine Color YELLOW 08/30/16 14:00 Urine Clarity SLIGHT HAZY (CLEAR) 08/30/16 14:00 Urine pH 6.5 08/30/16 14:00 Ur Specific [place] 1.015 (1.005-1.030) 08/30/16 14:00 Urine Protein NEGATIVE mg/dL (NEGATIVE) 08/30/16 14:00 Urine Glucose (UA) NEGATIVE mg/dL (NEGATIVE) 08/30/16 14:00 Urine Ketones NEGATIVE mg/dL (NEGATIVE) 08/30/16 14:00 Urine Blood TRACE (NEGATIVE) 08/30/16 14:00 Urine Nitrate NEGATIVE (NEGATIVE) 08/30/16 14:00 Urine Bilirubin NEGATIVE (NEGATIVE) 08/30/16 14:00 Urine Urobilinogen 0.2 E.U./dL (0.2 - 1.0) 08/30/16 14:00 Ur Leukocyte Esterase LARGE (NEGATIVE) H 08/30/16 14:00 Urine RBC 2-5 /hpf (0-5) 08/30/16 14:00 Urine WBC 25-50 /hpf (0-5) H 08/30/16 14:00 Ur Epithelial Cells OCCASIONAL /lpf (FEW) 08/30/16 14:00 Urine Bacteria 1+ /hpf (NONE SEEN) H 08/30/16 14:00 Salicylates < 25.0 mg/L (30.0-100.0) L 08/30/16 14:15 Urine Opiates Screen NEGATIVE (NEGATIVE) 08/30/16 14:00 Urine Methadone Screen NEGATIVE (NEGATIVE) 08/30/16 14:00 Acetaminophen < 10.0 ug/mL (10.0-30.0) L 08/30/16 14:15 Ur Barbiturates Screen NEGATIVE (NEGATIVE) 08/30/16 14:00 Ur Tricyclics Screen NEGATIVE (NEGATIVE) 08/30/16 14:00 Ur Phencyclidine Scrn NEGATIVE (NEGATIVE) 08/30/16 14:00 Amphetamines Screen NEGATIVE (NEGATIVE) 08/30/16 14:00 U Methamphetamines Scrn NEGATIVE (NEGATIVE) 08/30/16 14:00 U Benzodiazepines Scrn NEGATIVE (NEGATIVE) 08/30/16 14:00 U Cocaine Metab Screen NEGATIVE (NEGATIVE) 08/30/16 14:00 U Cannabinoids Screen NEGATIVE (NEGATIVE) 08/30/16 14:00 Ethyl Alcohol < 10 mg/dL (0-10) 08/30/16 14:15 RPR NONREACTIVE (NONREACTIVE) 08/30/16 14:15 - Physical Exam Vitals and I&O: Vital Signs Temp 97.3 F 09/10/16 07:17 Pulse 98 09/10/16 09:02 Resp 18 09/10/16 07:17 BP 143/79 09/10/16 09:02 Pulse Ox 98 09/10/16 07:17 Intake & Output 09/09/16 09/10/16 09/10/16 18:59 06:59 18:59 Intake Total 1200 Balance 1200 Intake: Oral 1200 Other: # Voids 3 1 # Bowel Movements 1 2 Active Medications: Current Medications Acetaminophen (Tylenol) 650 mg PO Q4H PRN PRN Reason: PAIN Stop: 10/29/16 23:25 Ascorbic Acid (Vitamin C) 500 mg PO DAILY NICOLE Stop: 10/30/16 08:59 Last Admin: 09/10/16 08:59 Dose: 500 mg Atenolol (Tenormin) 25 mg PO DAILY NICOLE Stop: 10/30/16 08:59 Last Admin: 09/10/16 09:00 Dose: 25 mg Docusate Sodium (Colace) 100 mg PO BID NICOLE Stop: 10/30/16 08:59 Last Admin: 09/10/16 08:58 Dose: 100 mg Escitalopram Oxalate (Lexapro) 10 mg PO DAILY NICOLE PRN Reason: Protocol Stop: 11/07/16 11:26 Last Admin: 09/10/16 09:01 Dose: 10 mg Levothyroxine Sodium (Synthroid) 0.125 mg PO QDAC NICOLE Stop: 10/30/16 07:29 Last Admin: 09/10/16 06:34 Dose: 0.125 mg Lisinopril (Zestril) 20 mg PO DAILY NICOLE Stop: 10/30/16 08:59 Last Admin: 09/10/16 09:02 Dose: 20 mg Magnesium Hydroxide (Milk Of Magnesia) 30 ml PO DAILY PRN PRN Reason: Constipation Stop: 10/29/16 23:25 Olanzapine (Zyprexa) 25 mg PO DAILY [facility] PRN Reason: Protocol Stop: 11/07/16 11:26 Last Admin: 09/10/16 09:04 Dose: 25 mg Sodium Chloride (Nacl Tab) 1 gm PO TID [facility] Stop: 10/30/16 20:59 Last Admin: 09/10/16 09:07 Dose: 1 gm General: alert HEENT: NC/AT, PERRLA Neck: Supple Lungs: CTAB - Procedures Procedures: Procedures Procedure Code Date APPENDECTOMY ADD-ON 94590 08/04/15 BYPASS TRANSVERSE COLON TO CUTANEOUS, OPEN APPROACH [id number] 08/04/15 COLOSTOMY 82115 08/04/15 EXCISION OF LARGE INTESTINE, OPEN APPROACH [id number] 08/04/15 GROUP PSYCHOTHERAPY 69232 07/31/15 GROUP PSYCHOTHERAPY GZHZZZZ 07/31/15 GROUP PSYCHOTHERAPY 91709 04/02/15 GROUP PSYCHOTHERAPY GZHZZZZ 04/02/15 OTHER GROUP THERAPY 94.44 11/07/14 PARTIAL REMOVAL OF COLON 59538 08/04/15 RECREATIONAL THERAPY 93.81 02/21/10 RESECTION OF APPENDIX, OPEN APPROACH [id number] 08/04/15 Internal Medicine Assmt/Plan - Assessment Assessment: Urinary tract infection hyponatremia hypertension hypothyroidism dementia status post colostomy rectal prolapse repair hernia repai. - Plan Plan: encourage fluids cpm Nutritional Asmnt/Malnutr-PDOC - Dietary Evaluation Malnutrition Findings (Please click <Entered> for more info): Nutritional Asmnt/Malnutrition Start: 09/06/16 15: 04 Text: Status: Complete Freq: Document 09/06/16 15:04 GSUN (Rec: 09/06/16 15:21 [email or web address]) Nutritional Asmnt/Malnutrition Patient General Information Nutritional Screening Diagnosis Diagnosis UTI, major depression recurrent with psychosis, r/o schizoaffective disorde Pertinent Medical Hx/Surgical Hx Dementia, HTN, hypothyroidism, s/p colostomy secondary to hernia and rectal prolapse repair. Subjective Information 76 year old female. Visited pt during meal time, pt was eating in bed without difficulties, appeared easily irritable. Pt did not respond to RD questions and became combative when RD got near. Obtained CBW via bedscale. Observed lunch 100% consumed. Avg PO intake 100% since adm, meeting nutritional needs. Pt appeared overweight without significant wasting noted. 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 Current %PO Good (75-100%) Estimated Nutritional Goals Calories/Kcals/Kg IBW 115lb/52.3kg Kcals Calculated 1308-1569kcal (25-30kcal/kg) Protein g/kg: IBW Protein Calculated 52g (1g/kg) Fluid: ml 1308-1569ml (1ml/kcal) Nutritional Problem 1. Problem Problem No nutritional problem at this time. Intervention/Recommendation Comments 1. Continue with current diet order. Avg PO intake is adequate. Expected Outcomes/Goals Expected Outcomes/Goals 1. PO intake continue to meet at least 75% of estimated nutritional needs.
--- NOTE | 2016-09-10 19:59 | Progress Notes ---
DATE: 09/10/2016 SUBJECTIVE: The patient seen, chart reviewed, discussed with staff. The patient is well known to this clinician. She remains angry, upset, irritable, rambling, pulling colostomy bag, in appropriate, difficult to control behaviors, agitated, angry, angry with staff. Eating is fair, requiring a lot of redirection, poor attention ADLs. The patient is currently under the care of Dr. Kaufman. MEDICATIONS: Reviewed. She is currently on a Zyprexa 25 mg daily, Lexapro. ASSESSMENT AND PLAN: The patient remains symptomatic, angry, upset, not safe for discharge. Still with behavioral disturbances that are dangerous unsafe for a lower level of care. PLAN: Continue Zyprexa given recent dose increase, we will continue her current dose of 25 mg. [facility]# [id number]
[2016-09-11] MEDS: Levothyroxine 0.125 Mg Tab PO SCH (06:36)
[2016-09-11] MEDS: Multivitamin w/ Minerals Tab PO SCH (08:14)
[2016-09-11] MEDS: Escitalopram Oxalate 5 mg Tab PO SCH (08:15)
--- NOTE | 2016-09-11 16:41 | Internal Medicine Prog Note ---
Internal Medicine Subjective - Subjective Service Date: 09/11/16 Patient seen and examined:: with staff Patient is:: awake Per staff patient has:: no adverse event Internal Medicine Objective - Results Result Diagrams: 08/30/16 14:15 08/30/16 14:15 Recent Labs: Laboratory Last Values WBC 8.1 Th/cmm (4.8-10.8) 08/30/16 14:15 RBC 4.32 Mil/cmm (3.80-5.20) 08/30/16 14:15 Hgb 12.2 gm/dL (11.7-16.1) 08/30/16 14:15 Hct 35.6 % (35.0-45.0) 08/30/16 14:15 MCV 82.4 fl (81-100) 08/30/16 14:15 MCH 28.2 pg (27.0-31.0) 08/30/16 14:15 MCHC Differential 34.2 pg (28.0-36.0) 08/30/16 14:15 RDW 13.5 % (11.5-20.0) 08/30/16 14:15 Plt Count 370 Th/cmm (150-400) D 08/30/16 14:15 MPV 6.7 fl 08/30/16 14:15 Neutrophils % 65.7 % (40.0-80.0) 08/30/16 14:15 Lymphocytes % 24.0 % (20.0-50.0) 08/30/16 14:15 Monocytes % 7.8 % (2.0-10.0) 08/30/16 14:15 Eosinophils % 1.7 % (0.0-5.0) 08/30/16 14:15 Basophils % 0.8 % (0.0-2.0) 08/30/16 14:15 Sodium 121 mEq/L (136-145) L 08/30/16 14:15 Potassium 4.3 mEq/L (3.5-5.1) 08/30/16 14:15 Chloride 91 mEq/L (98-107) L 08/30/16 14:15 Carbon Dioxide 26.2 mEq/L (21.0-31.0) 08/30/16 14:15 Anion Gap 8.1 (7.0-16.0) 08/30/16 14:15 BUN 8 mg/dL (7-25) 08/30/16 14:15 Creatinine 0.5 mg/dL (0.6-1.2) L 08/30/16 14:15 Est GFR ( Amer) TNP 08/30/16 14:15 Est GFR (Non-Af Amer) TNP 08/30/16 14:15 BUN/Creatinine Ratio 16.0 08/30/16 14:15 Glucose 153 mg/dL (70-105) H 08/30/16 14:15 Calcium 9.5 mg/dL (8.6-10.3) 08/30/16 14:15 Total Bilirubin 0.3 mg/dL (0.3-1.0) 08/30/16 14:15 GGTP 17 IU/L (0-60) 08/30/16 14:15 AST 21 U/L (13-39) 08/30/16 14:15 ALT 17 U/L (7-52) 08/30/16 14:15 Alkaline Phosphatase 89 U/L (34-104) 08/30/16 14:15 Total Protein 7.3 gm/dL (6.0-8.3) 08/30/16 14:15 Albumin 4.1 gm/dL (3.7-5.3) 08/30/16 14:15 Globulin 3.2 gm/dL 08/30/16 14:15 Albumin/Globulin Ratio 1.3 (1.0-1.8) 08/30/16 14:15 Lipase 22 U/L (11-82) 08/30/16 14:15 TSH 1.19 uIU/ml (0.34-5.60) 08/30/16 14:15 Urine Source CLEAN C 08/30/16 14:00 Urine Color YELLOW 08/30/16 14:00 Urine Clarity SLIGHT HAZY (CLEAR) 08/30/16 14:00 Urine pH 6.5 08/30/16 14:00 Ur Specific [place] 1.015 (1.005-1.030) 08/30/16 14:00 Urine Protein NEGATIVE mg/dL (NEGATIVE) 08/30/16 14:00 Urine Glucose (UA) NEGATIVE mg/dL (NEGATIVE) 08/30/16 14:00 Urine Ketones NEGATIVE mg/dL (NEGATIVE) 08/30/16 14:00 Urine Blood TRACE (NEGATIVE) 08/30/16 14:00 Urine Nitrate NEGATIVE (NEGATIVE) 08/30/16 14:00 Urine Bilirubin NEGATIVE (NEGATIVE) 08/30/16 14:00 Urine Urobilinogen 0.2 E.U./dL (0.2 - 1.0) 08/30/16 14:00 Ur Leukocyte Esterase LARGE (NEGATIVE) H 08/30/16 14:00 Urine RBC 2-5 /hpf (0-5) 08/30/16 14:00 Urine WBC 25-50 /hpf (0-5) H 08/30/16 14:00 Ur Epithelial Cells OCCASIONAL /lpf (FEW) 08/30/16 14:00 Urine Bacteria 1+ /hpf (NONE SEEN) H 08/30/16 14:00 Salicylates < 25.0 mg/L (30.0-100.0) L 08/30/16 14:15 Urine Opiates Screen NEGATIVE (NEGATIVE) 08/30/16 14:00 Urine Methadone Screen NEGATIVE (NEGATIVE) 08/30/16 14:00 Acetaminophen < 10.0 ug/mL (10.0-30.0) L 08/30/16 14:15 Ur Barbiturates Screen NEGATIVE (NEGATIVE) 08/30/16 14:00 Ur Tricyclics Screen NEGATIVE (NEGATIVE) 08/30/16 14:00 Ur Phencyclidine Scrn NEGATIVE (NEGATIVE) 08/30/16 14:00 Amphetamines Screen NEGATIVE (NEGATIVE) 08/30/16 14:00 U Methamphetamines Scrn NEGATIVE (NEGATIVE) 08/30/16 14:00 U Benzodiazepines Scrn NEGATIVE (NEGATIVE) 08/30/16 14:00 U Cocaine Metab Screen NEGATIVE (NEGATIVE) 08/30/16 14:00 U Cannabinoids Screen NEGATIVE (NEGATIVE) 08/30/16 14:00 Ethyl Alcohol < 10 mg/dL (0-10) 08/30/16 14:15 RPR NONREACTIVE (NONREACTIVE) 08/30/16 14:15 - Physical Exam Vitals and I&O: Vital Signs Temp 97.9 F 09/11/16 15:08 Pulse 87 09/11/16 15:08 Resp 20 09/11/16 15:08 BP 116/78 09/11/16 15:08 Pulse Ox 96 09/11/16 15:08 Intake & Output 06/09/11/16 09/11/16 18:59 06:59 18:59 Intake Total 1200 480 Output Total 400 Balance 800 480 Intake: Oral 1200 480 Output: Urine/Stool Mix 400 Other: # Voids 4 1 # Bowel Movements 2 Stool Characteristics Formed Formed Liquid Liquid Brown Brown Active Medications: Current Medications Acetaminophen (Tylenol) 650 mg PO Q4H PRN PRN Reason: PAIN Stop: 10/29/16 23:25 Ascorbic Acid (Vitamin C) 500 mg PO DAILY NICOLE Stop: 10/30/16 08:59 Last Admin: 09/11/16 08:14 Dose: 500 mg Atenolol (Tenormin) 25 mg PO DAILY NICOLE Stop: 10/30/16 08:59 Last Admin: 09/11/16 08:15 Dose: 25 mg Docusate Sodium (Colace) 100 mg PO BID NICOLE Stop: 10/30/16 08:59 Last Admin: 09/11/16 16:19 Dose: 100 mg Escitalopram Oxalate (Lexapro) 10 mg PO DAILY NICOLE PRN Reason: Protocol Stop: 11/07/16 11:26 Last Admin: 09/11/16 08:15 Dose: 10 mg Levothyroxine Sodium (Synthroid) 0.125 mg PO QDAC NICOLE Stop: 10/30/16 07:29 Last Admin: 09/11/16 06:36 Dose: 0.125 mg Lisinopril (Zestril) 20 mg PO DAILY [facility] Stop: 10/30/16 08:59 Last Admin: 09/11/16 08:15 Dose: 20 mg Magnesium Hydroxide (Milk Of Magnesia) 30 ml PO DAILY PRN PRN Reason: Constipation Stop: 10/29/16 23:25 Olanzapine (Zyprexa) 30 mg PO DAILY NICOLE PRN Reason: Protocol Stop: 11/10/16 07:30 Last Admin: 09/11/16 08:14 Dose: 30 mg Sodium Chloride (Nacl Tab) 1 gm PO TID [facility] Stop: 10/30/16 20:59 Last Admin: 09/11/16 14:30 Dose: 1 gm General: NAD HEENT: NC/AT, PERRLA Neck: Supple - Procedures Procedures: Procedures Procedure Code Date APPENDECTOMY ADD-ON 14026 08/04/15 BYPASS TRANSVERSE COLON TO CUTANEOUS, OPEN APPROACH [id number] 08/04/15 COLOSTOMY 17536 08/04/15 EXCISION OF LARGE INTESTINE, OPEN APPROACH [id number] 08/04/15 GROUP PSYCHOTHERAPY 14230 07/31/15 GROUP PSYCHOTHERAPY GZHZZZZ 07/31/15 GROUP PSYCHOTHERAPY 72978 04/02/15 GROUP PSYCHOTHERAPY GZHZZZZ 04/02/15 OTHER GROUP THERAPY 94.44 11/07/14 PARTIAL REMOVAL OF COLON 11963 08/04/15 RECREATIONAL THERAPY 93.81 02/21/10 RESECTION OF APPENDIX, OPEN APPROACH [id number] 08/04/15 Internal Medicine Assmt/Plan - Assessment Assessment: Urinary tract infection hyponatremia hypertension hypothyroidism dementia status post colostomy rectal prolapse repair hernia repai. - Plan Plan: encourage fluids cpm Nutritional Asmnt/Malnutr-PDOC - Dietary Evaluation Malnutrition Findings (Please click <Entered> for more info): Nutritional Asmnt/Malnutrition Start: 09/06/16 15: 04 Text: Status: Complete Freq: Document 09/06/16 15:04 GSUN (Rec: 09/06/16 15:21 [email or web address]) Nutritional Asmnt/Malnutrition Patient General Information Nutritional Screening Diagnosis Diagnosis UTI, major depression recurrent with psychosis, r/o schizoaffective disorde Pertinent Medical Hx/Surgical Hx Dementia, HTN, hypothyroidism, s/p colostomy secondary to hernia and rectal prolapse repair. Subjective Information 76 year old female. Visited pt during meal time, pt was eating in bed without difficulties, appeared easily irritable. Pt did not respond to RD questions and became combative when RD got near. Obtained CBW via bedscale. Observed lunch 100% consumed. Avg PO intake 100% since adm, meeting nutritional needs. Pt appeared overweight without significant wasting noted. Current Diet Order/ Nutrition Support 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 Current %PO Good (75-100%) Estimated Nutritional Goals Calories/Kcals/Kg IBW 115lb/52.3kg Kcals Calculated 1308-1569kcal (25-30kcal/kg) Protein g/kg: IBW Protein Calculated 52g (1g/kg) Fluid: ml 1308-1569ml (1ml/kcal) Nutritional Problem 1. Problem Problem No nutritional problem at this time. Intervention/Recommendation Comments 1. Continue with current diet order. Avg PO intake is adequate. Expected Outcomes/Goals Expected Outcomes/Goals 1. PO intake continue to meet at least 75% of estimated nutritional needs.
--- NOTE | 2016-09-11 21:01 | Progress Notes ---
DATE: 09/11/2016 SUBJECTIVE: The patient seen, chart reviewed, discussed with staff. The patient referred from [place] with agitation, psychosis, rambling behaviors. On [id number], the patient remains impulsive, unpredictable, wearing socks in her hands, bizarre, still angry, yelling, screaming, nonsensical at times. Eating with prompting. ADLs with prompting. Still at times lashing out at staff. At times throwing her colostomy bag. Staff having to redirect her near constantly. Medications were reviewed. Labs were reviewed. No side effects noted. ASSESSMENT: The patient remains symptomatic, bizarre behaviors, dangerous behaviors impulsive, and unpredictable. PLAN: We will continue to monitor. We will increase her Zyprexa to 30 mg today. Given the severity of the patient's current symptoms, she is not safe for discharge at this time. [facility]# [id number]
[2016-09-12] MEDS: Levothyroxine 0.125 Mg Tab PO SCH (06:32)
[2016-09-12] MEDS: Escitalopram Oxalate 5 mg Tab PO SCH (08:58)
[2016-09-12] MEDS: Multivitamin w/ Minerals Tab PO SCH (08:59)
--- NOTE | 2016-09-12 10:07 | Internal Medicine Prog Note ---
Internal Medicine Subjective - Subjective Patient seen and examined:: with staff, chart reviewed Patient is:: awake, verbal, interactive, talking Per staff patient has:: no adverse event, no episodes of fall, eating well, tolerating meds Internal Medicine Objective - Results Result Diagrams: 08/30/16 14:15 08/30/16 14:15 Recent Labs: Laboratory Last Values WBC 8.1 Th/cmm (4.8-10.8) 08/30/16 14:15 RBC 4.32 Mil/cmm (3.80-5.20) 08/30/16 14:15 Hgb 12.2 gm/dL (11.7-16.1) 08/30/16 14:15 Hct 35.6 % (35.0-45.0) 08/30/16 14:15 MCV 82.4 fl (81-100) 08/30/16 14:15 MCH 28.2 pg (27.0-31.0) 08/30/16 14:15 MCHC Differential 34.2 pg (28.0-36.0) 08/30/16 14:15 RDW 13.5 % (11.5-20.0) 08/30/16 14:15 Plt Count 370 Th/cmm (150-400) D 08/30/16 14:15 MPV 6.7 fl 08/30/16 14:15 Neutrophils % 65.7 % (40.0-80.0) 08/30/16 14:15 Lymphocytes % 24.0 % (20.0-50.0) 08/30/16 14:15 Monocytes % 7.8 % (2.0-10.0) 08/30/16 14:15 Eosinophils % 1.7 % (0.0-5.0) 08/30/16 14:15 Basophils % 0.8 % (0.0-2.0) 08/30/16 14:15 Sodium 121 mEq/L (136-145) L 08/30/16 14:15 Potassium 4.3 mEq/L (3.5-5.1) 08/30/16 14:15 Chloride 91 mEq/L (98-107) L 08/30/16 14:15 Carbon Dioxide 26.2 mEq/L (21.0-31.0) 08/30/16 14:15 Anion Gap 8.1 (7.0-16.0) 08/30/16 14:15 BUN 8 mg/dL (7-25) 08/30/16 14:15 Creatinine 0.5 mg/dL (0.6-1.2) L 08/30/16 14:15 Est GFR ( Amer) TNP 08/30/16 14:15 Est GFR (Non-Af Amer) TNP 08/30/16 14:15 BUN/Creatinine Ratio 16.0 08/30/16 14:15 Glucose 153 mg/dL (70-105) H 08/30/16 14:15 Calcium 9.5 mg/dL (8.6-10.3) 08/30/16 14:15 Total Bilirubin 0.3 mg/dL (0.3-1.0) 08/30/16 14:15 GGTP 17 IU/L (0-60) 08/30/16 14:15 AST 21 U/L (13-39) 08/30/16 14:15 ALT 17 U/L (7-52) 08/30/16 14:15 Alkaline Phosphatase 89 U/L (34-104) 08/30/16 14:15 Total Protein 7.3 gm/dL (6.0-8.3) 08/30/16 14:15 Albumin 4.1 gm/dL (3.7-5.3) 08/30/16 14:15 Globulin 3.2 gm/dL 08/30/16 14:15 Albumin/Globulin Ratio 1.3 (1.0-1.8) 08/30/16 14:15 Lipase 22 U/L (11-82) 08/30/16 14:15 TSH 1.19 uIU/ml (0.34-5.60) 08/30/16 14:15 Urine Source CLEAN C 08/30/16 14:00 Urine Color YELLOW 08/30/16 14:00 Urine Clarity SLIGHT HAZY (CLEAR) 08/30/16 14:00 Urine pH 6.5 08/30/16 14:00 Ur Specific [place] 1.015 (1.005-1.030) 08/30/16 14:00 Urine Protein NEGATIVE mg/dL (NEGATIVE) 08/30/16 14:00 Urine Glucose (UA) NEGATIVE mg/dL (NEGATIVE) 08/30/16 14:00 Urine Ketones NEGATIVE mg/dL (NEGATIVE) 08/30/16 14:00 Urine Blood TRACE (NEGATIVE) 08/30/16 14:00 Urine Nitrate NEGATIVE (NEGATIVE) 08/30/16 14:00 Urine Bilirubin NEGATIVE (NEGATIVE) 08/30/16 14:00 Urine Urobilinogen 0.2 E.U./dL (0.2 - 1.0) 08/30/16 14:00 Ur Leukocyte Esterase LARGE (NEGATIVE) H 08/30/16 14:00 Urine RBC 2-5 /hpf (0-5) 08/30/16 14:00 Urine WBC 25-50 /hpf (0-5) H 08/30/16 14:00 Ur Epithelial Cells OCCASIONAL /lpf (FEW) 08/30/16 14:00 Urine Bacteria 1+ /hpf (NONE SEEN) H 08/30/16 14:00 Salicylates < 25.0 mg/L (30.0-100.0) L 08/30/16 14:15 Urine Opiates Screen NEGATIVE (NEGATIVE) 08/30/16 14:00 Urine Methadone Screen NEGATIVE (NEGATIVE) 08/30/16 14:00 Acetaminophen < 10.0 ug/mL (10.0-30.0) L 08/30/16 14:15 Ur Barbiturates Screen NEGATIVE (NEGATIVE) 08/30/16 14:00 Ur Tricyclics Screen NEGATIVE (NEGATIVE) 08/30/16 14:00 Ur Phencyclidine Scrn NEGATIVE (NEGATIVE) 08/30/16 14:00 Amphetamines Screen NEGATIVE (NEGATIVE) 08/30/16 14:00 U Methamphetamines Scrn NEGATIVE (NEGATIVE) 08/30/16 14:00 U Benzodiazepines Scrn NEGATIVE (NEGATIVE) 08/30/16 14:00 U Cocaine Metab Screen NEGATIVE (NEGATIVE) 08/30/16 14:00 U Cannabinoids Screen NEGATIVE (NEGATIVE) 08/30/16 14:00 Ethyl Alcohol < 10 mg/dL (0-10) 08/30/16 14:15 RPR NONREACTIVE (NONREACTIVE) 08/30/16 14:15 - Physical Exam Vitals and I&O: Vital Signs Temp 98.0 F 09/12/16 06:18 Pulse 78 09/12/16 08:59 Resp 20 09/12/16 06:18 BP 129/79 09/12/16 08:59 Pulse Ox 95 09/12/16 06:18 Intake & Output 09/11/16 09/12/16 09/12/16 18:59 06:59 18:59 Intake Total 1200 240 Output Total 350 Balance 850 240 Intake: Oral 1200 240 Output: Other 350 Other: # Voids 4 1 # Bowel Movements 0 Stool Characteristics Formed Formed Liquid Liquid Brown Brown Active Medications: Current Medications Acetaminophen (Tylenol) 650 mg PO Q4H PRN PRN Reason: PAIN Stop: 10/29/16 23:25 Ascorbic Acid (Vitamin C) 500 mg PO DAILY [facility] Stop: 10/30/16 08:59 Last Admin: 09/12/16 08:58 Dose: Not Given Atenolol (Tenormin) 25 mg PO DAILY [facility] Stop: 10/30/16 08:59 Last Admin: 09/12/16 08:59 Dose: Not Given Docusate Sodium (Colace) 100 mg PO BID [facility] Stop: 10/30/16 08:59 Last Admin: 09/12/16 08:59 Dose: Not Given Escitalopram Oxalate (Lexapro) 10 mg PO DAILY [facility] PRN Reason: Protocol Stop: 11/07/16 11:26 Last Admin: 09/12/16 08:58 Dose: Not Given Levothyroxine Sodium (Synthroid) 0.125 mg PO QDAC [facility] Stop: 10/30/16 07:29 Last Admin: 09/12/16 06:32 Dose: 0.125 mg Lisinopril (Zestril) 20 mg PO DAILY [facility] Stop: 10/30/16 08:59 Last Admin: 09/12/16 08:59 Dose: Not Given Magnesium Hydroxide (Milk Of Magnesia) 30 ml PO DAILY PRN PRN Reason: Constipation Stop: 10/29/16 23:25 Olanzapine (Zyprexa) 30 mg PO DAILY [facility] PRN Reason: Protocol Stop: 11/10/16 07:30 Last Admin: 09/12/16 08:58 Dose: Not Given Sodium Chloride (Nacl Tab) 1 gm PO TID [facility] Stop: 10/30/16 20:59 Last Admin: 09/12/16 08:58 Dose: Not Given General: demented, obese, appears older, NAD HEENT: NC/AT, PERRLA, EOMI, anicteric sclerae Neck: Supple, No JVD, No LAD Lungs: CTAB Cardiovascular: RRR, Normal S1, Normal S2 Abdomen: soft, globular, other (colostomy in placed) Extremities: excoriation Neurological: no change, gait stable - Procedures Procedures: Procedures Procedure Code Date APPENDECTOMY ADD-ON 66574 08/04/15 BYPASS TRANSVERSE COLON TO CUTANEOUS, OPEN APPROACH [id number] 08/04/15 COLOSTOMY 95356 08/04/15 EXCISION OF LARGE INTESTINE, OPEN APPROACH [id number] 08/04/15 GROUP PSYCHOTHERAPY 79780 07/31/15 GROUP PSYCHOTHERAPY GZHZZZZ 07/31/15 GROUP PSYCHOTHERAPY 46424 04/02/15 GROUP PSYCHOTHERAPY GZHZZZZ 04/02/15 OTHER GROUP THERAPY 94.44 11/07/14 PARTIAL REMOVAL OF COLON 27997 08/04/15 RECREATIONAL THERAPY 93.81 02/21/10 RESECTION OF APPENDIX, OPEN APPROACH [id number] 08/04/15 Internal Medicine Assmt/Plan - Assessment Assessment: Urinary tract infection, hyponatremia, hypertension, hypothyroidism, dementia, status post colostomy, rectal prolapse repair, and hernia repair. - Plan Plan: cont on antibiotic cont on nacl fall precaution monitor na level dw rn Nutritional Asmnt/Malnutr-PDOC - Dietary Evaluation Malnutrition Findings (Please click <Entered> for more info): Nutritional Asmnt/Malnutrition Start: 09/06/16 15: 04 Text: Status: Complete Freq: Document 09/06/16 15:04 GSUN (Rec: 09/06/16 15:21 [email or web address]) Nutritional Asmnt/Malnutrition Patient General Information Nutritional Screening Diagnosis Diagnosis UTI, major depression recurrent with psychosis, r/o schizoaffective disorde Pertinent Medical Hx/Surgical Hx Dementia, HTN, hypothyroidism, s/p colostomy secondary to hernia and rectal prolapse repair. Subjective Information 76 year old female. Visited pt during meal time, pt was eating in bed without difficulties, appeared easily irritable. Pt did not respond to RD questions and became combative when RD got near. Obtained CBW via bedscale. Observed lunch 100% consumed. Avg PO intake 100% since adm, meeting nutritional needs. Pt appeared overweight without significant wasting noted. Current Diet Order/ Nutrition Support [facility] chopped Pertinent Medications Vitamin C, Colace, Levaquin, Synthroid, MOM Pertinent Labs 08/30: glucose 153H (no DM noted in H&P) Nutritional Hx/Data Height 1.6 m Height (Calculated Centimeters) 160.0 Current Weight (lbs) 67.993 kg Weight (Calculated Kilograms) 68.0 Weight (Calculated Grams) 01641.5 [place] Body Weight 115 Weight Status Overweight GI Symptoms Food Allergies No Usual diet at home [place]: [facility] soft Skin Integrity/Comment: Fabrizio Santos. counseling center director: scratches. Current %PO Good (75-100%) Estimated Nutritional Goals Calories/Kcals/Kg IBW 115lb/52.3kg Kcals Calculated 1308-1569kcal (25-30kcal/kg) Protein g/kg: IBW Protein Calculated 52g (1g/kg) Fluid: ml 1308-1569ml (1ml/kcal) Nutritional Problem 1. Problem Problem No nutritional problem at this time. Intervention/Recommendation Comments 1. Continue with current diet order. Avg PO intake is adequate. Expected Outcomes/Goals Expected Outcomes/Goals 1. PO intake continue to meet at least 75% of estimated nutritional needs.
--- NOTE | 2016-09-13 01:45 | Progress Notes ---
DATE: 09/12/2016 Case was discussed with staff of the patient. The patient himself is starting to show some progress. She is not as irritable, continues to be rambling, continues to have poor insight. Continues to be unable to make safe plan for self-care. Dr. Bagley yesterday increased her Zyprexa to 30 mg at bedtime with no side effects, no sedation, no nausea, no extrapyramidal symptoms. We will continue to work with the patient in group therapy, milieu therapy, adjust medication as needed. JOB# [id number]
[2016-09-13] MEDS: Levothyroxine 0.125 Mg Tab PO SCH (06:30)
[2016-09-13] MEDS: Escitalopram Oxalate 5 mg Tab PO SCH (08:46)
[2016-09-13] MEDS: Multivitamin w/ Minerals Tab PO SCH (08:47)
--- NOTE | 2016-09-13 13:06 | Internal Medicine Prog Note ---
Internal Medicine Subjective - Subjective Patient seen and examined:: with staff, chart reviewed Patient is:: awake, verbal, interactive Per staff patient has:: no adverse event, no episodes of fall, eating well, confused Internal Medicine Objective - Results Result Diagrams: 08/30/16 14:15 08/30/16 14:15 Recent Labs: Laboratory Last Values WBC 8.1 Th/cmm (4.8-10.8) 08/30/16 14:15 RBC 4.32 Mil/cmm (3.80-5.20) 08/30/16 14:15 Hgb 12.2 gm/dL (11.7-16.1) 08/30/16 14:15 Hct 35.6 % (35.0-45.0) 08/30/16 14:15 MCV 82.4 fl (81-100) 08/30/16 14:15 MCH 28.2 pg (27.0-31.0) 08/30/16 14:15 MCHC Differential 34.2 pg (28.0-36.0) 08/30/16 14:15 RDW 13.5 % (11.5-20.0) 08/30/16 14:15 Plt Count 370 Th/cmm (150-400) D 08/30/16 14:15 MPV 6.7 fl 08/30/16 14:15 Neutrophils % 65.7 % (40.0-80.0) 08/30/16 14:15 Lymphocytes % 24.0 % (20.0-50.0) 08/30/16 14:15 Monocytes % 7.8 % (2.0-10.0) 08/30/16 14:15 Eosinophils % 1.7 % (0.0-5.0) 08/30/16 14:15 Basophils % 0.8 % (0.0-2.0) 08/30/16 14:15 Sodium 121 mEq/L (136-145) L 08/30/16 14:15 Potassium 4.3 mEq/L (3.5-5.1) 08/30/16 14:15 Chloride 91 mEq/L (98-107) L 08/30/16 14:15 Carbon Dioxide 26.2 mEq/L (21.0-31.0) 08/30/16 14:15 Anion Gap 8.1 (7.0-16.0) 08/30/16 14:15 BUN 8 mg/dL (7-25) 08/30/16 14:15 Creatinine 0.5 mg/dL (0.6-1.2) L 08/30/16 14:15 Est GFR ( Amer) TNP 08/30/16 14:15 Est GFR (Non-Af Amer) TNP 08/30/16 14:15 BUN/Creatinine Ratio 16.0 08/30/16 14:15 Glucose 153 mg/dL (70-105) H 08/30/16 14:15 Calcium 9.5 mg/dL (8.6-10.3) 08/30/16 14:15 Total Bilirubin 0.3 mg/dL (0.3-1.0) 08/30/16 14:15 GGTP 17 IU/L (0-60) 08/30/16 14:15 AST 21 U/L (13-39) 08/30/16 14:15 ALT 17 U/L (7-52) 08/30/16 14:15 Alkaline Phosphatase 89 U/L (34-104) 08/30/16 14:15 Total Protein 7.3 gm/dL (6.0-8.3) 08/30/16 14:15 Albumin 4.1 gm/dL (3.7-5.3) 08/30/16 14:15 Globulin 3.2 gm/dL 08/30/16 14:15 Albumin/Globulin Ratio 1.3 (1.0-1.8) 08/30/16 14:15 Lipase 22 U/L (11-82) 08/30/16 14:15 TSH 1.19 uIU/ml (0.34-5.60) 08/30/16 14:15 Urine Source CLEAN C 08/30/16 14:00 Urine Color YELLOW 08/30/16 14:00 Urine Clarity SLIGHT HAZY (CLEAR) 08/30/16 14:00 Urine pH 6.5 08/30/16 14:00 Ur Specific [place] 1.015 (1.005-1.030) 08/30/16 14:00 Urine Protein NEGATIVE mg/dL (NEGATIVE) 08/30/16 14:00 Urine Glucose (UA) NEGATIVE mg/dL (NEGATIVE) 08/30/16 14:00 Urine Ketones NEGATIVE mg/dL (NEGATIVE) 08/30/16 14:00 Urine Blood TRACE (NEGATIVE) 08/30/16 14:00 Urine Nitrate NEGATIVE (NEGATIVE) 08/30/16 14:00 Urine Bilirubin NEGATIVE (NEGATIVE) 08/30/16 14:00 Urine Urobilinogen 0.2 E.U./dL (0.2 - 1.0) 08/30/16 14:00 Ur Leukocyte Esterase LARGE (NEGATIVE) H 08/30/16 14:00 Urine RBC 2-5 /hpf (0-5) 08/30/16 14:00 Urine WBC 25-50 /hpf (0-5) H 08/30/16 14:00 Ur Epithelial Cells OCCASIONAL /lpf (FEW) 08/30/16 14:00 Urine Bacteria 1+ /hpf (NONE SEEN) H 08/30/16 14:00 Salicylates < 25.0 mg/L (30.0-100.0) L 08/30/16 14:15 Urine Opiates Screen NEGATIVE (NEGATIVE) 08/30/16 14:00 Urine Methadone Screen NEGATIVE (NEGATIVE) 08/30/16 14:00 Acetaminophen < 10.0 ug/mL (10.0-30.0) L 08/30/16 14:15 Ur Barbiturates Screen NEGATIVE (NEGATIVE) 08/30/16 14:00 Ur Tricyclics Screen NEGATIVE (NEGATIVE) 08/30/16 14:00 Ur Phencyclidine Scrn NEGATIVE (NEGATIVE) 08/30/16 14:00 Amphetamines Screen NEGATIVE (NEGATIVE) 08/30/16 14:00 U Methamphetamines Scrn NEGATIVE (NEGATIVE) 08/30/16 14:00 U Benzodiazepines Scrn NEGATIVE (NEGATIVE) 08/30/16 14:00 U Cocaine Metab Screen NEGATIVE (NEGATIVE) 08/30/16 14:00 U Cannabinoids Screen NEGATIVE (NEGATIVE) 08/30/16 14:00 Ethyl Alcohol < 10 mg/dL (0-10) 08/30/16 14:15 RPR NONREACTIVE (NONREACTIVE) 08/30/16 14:15 - Physical Exam Vitals and I&O: Vital Signs Temp 98 F 09/13/16 06:29 Pulse 80 09/13/16 10:21 Resp 20 09/13/16 10:21 BP 143/94 09/13/16 08:46 Pulse Ox 95 09/13/16 06:29 Intake & Output 09/12/16 09/13/16 09/13/16 18:59 06:59 18:59 Intake Total 1800 360 Output Total 200 Balance 1600 360 Weight (lbs) 67.585 kg Intake: Oral 1800 360 Output: Stool 200 Other: # Voids 4 3 # Bowel Movements 0 Stool Characteristics Formed Brown Active Medications: Current Medications Acetaminophen (Tylenol) 650 mg PO Q4H PRN PRN Reason: PAIN Stop: 10/29/16 23:25 Ascorbic Acid (Vitamin C) 500 mg PO DAILY [facility] Stop: 10/30/16 08:59 Last Admin: 09/13/16 08:46 Dose: Not Given Atenolol (Tenormin) 25 mg PO DAILY [facility] Stop: 10/30/16 08:59 Last Admin: 09/13/16 08:46 Dose: Not Given Docusate Sodium (Colace) 100 mg PO BID [facility] Stop: 10/30/16 08:59 Last Admin: 09/13/16 08:46 Dose: Not Given Escitalopram Oxalate (Lexapro) 10 mg PO DAILY [facility] PRN Reason: Protocol Stop: 11/07/16 11:26 Last Admin: 09/13/16 08:46 Dose: Not Given Levothyroxine Sodium (Synthroid) 0.125 mg PO QDAC [facility] Stop: 10/30/16 07:29 Last Admin: 09/13/16 06:30 Dose: 0.125 mg Lisinopril (Zestril) 20 mg PO DAILY [facility] Stop: 10/30/16 08:59 Last Admin: 09/13/16 08:46 Dose: Not Given Magnesium Hydroxide (Milk Of Magnesia) 30 ml PO DAILY PRN PRN Reason: Constipation Stop: 10/29/16 23:25 Olanzapine (Zyprexa) 30 mg PO DAILY [facility] PRN Reason: Protocol Stop: 11/10/16 07:30 Last Admin: 09/13/16 08:47 Dose: Not Given Sodium Chloride (Nacl Tab) 1 gm PO TID [facility] Stop: 10/30/16 20:59 Last Admin: 09/13/16 08:47 Dose: Not Given General: demented HEENT: NC/AT, PERRLA, EOMI Neck: Supple, No JVD, deformity (orally) Lungs: CTAB Cardiovascular: RRR, Normal S1, Normal S2 Abdomen: soft, non-tender, globular, non-distended, other (colostomy) Extremities: excoriation Neurological: no change, disorganized - Procedures Procedures: Procedures Procedure Code Date APPENDECTOMY ADD-ON 94448 08/04/15 BYPASS TRANSVERSE COLON TO CUTANEOUS, OPEN APPROACH [id number] 08/04/15 COLOSTOMY 88000 08/04/15 EXCISION OF LARGE INTESTINE, OPEN APPROACH [id number] 08/04/15 GROUP PSYCHOTHERAPY 06283 07/31/15 GROUP PSYCHOTHERAPY GZHZZZZ 07/31/15 GROUP PSYCHOTHERAPY 74616 04/02/15 GROUP PSYCHOTHERAPY GZHZZZZ 04/02/15 OTHER GROUP THERAPY 94.44 11/07/14 PARTIAL REMOVAL OF COLON 75610 08/04/15 RECREATIONAL THERAPY 93.81 02/21/10 RESECTION OF APPENDIX, OPEN APPROACH [id number] 08/04/15 Internal Medicine Assmt/Plan - Assessment Assessment: Urinary tract infection, hyponatremia, hypertension, hypothyroidism, dementia, status post colostomy, rectal prolapse repair, and hernia repair. - Plan Plan: cont on antibiotic cont on nacl fall precaution monitor na level gerry rn Nutritional Asmnt/Malnutr-PDOC - Dietary Evaluation Malnutrition Findings (Please click <Entered> for more info): Nutritional Asmnt/Malnutrition Start: 09/06/16 15: 04 Text: Status: Complete Freq: Document 09/06/16 15:04 UN (Rec: 09/06/16 15:21 [email or web address] [email or web address]) Nutritional Asmnt/Malnutrition Patient General Information Nutritional Screening Diagnosis Diagnosis UTI, major depression recurrent with psychosis, r/o schizoaffective disorde Pertinent Medical Hx/Surgical Hx Dementia, HTN, hypothyroidism, s/p colostomy secondary to hernia and rectal prolapse repair. Subjective Information 76 year old female. Visited pt during meal time, pt was eating in bed without difficulties, appeared easily irritable. Pt did not respond to RD questions and became combative when RD got near. Obtained CBW via bedscale. Observed lunch 100% consumed. Avg PO intake 100% since adm, meeting nutritional needs. Pt appeared overweight without significant wasting noted. Current Diet Order/ Nutrition Support [facility] chopped Pertinent Medications Vitamin C, Colace, Levaquin, Synthroid, MOM Pertinent Labs 08/30: glucose 153H (no DM noted in H&P) Nutritional Hx/Data Height 1.6 m Height (Calculated Centimeters) 160.0 Current Weight (lbs) 67.993 kg Weight (Calculated Kilograms) 68.0 Weight (Calculated Grams) 31555.5 [place] Body Weight 115 Weight Status Overweight GI Symptoms Food Allergies No Usual diet at home [place]: [facility] soft Skin Integrity/Comment: Fabrizio Santos. assessment clinician: scratches. Current %PO Good (75-100%) Estimated Nutritional Goals Calories/Kcals/Kg IBW 115lb/52.3kg Kcals Calculated 1308-1569kcal (25-30kcal/kg) Protein g/kg: IBW Protein Calculated 52g (1g/kg) Fluid: ml 1308-1569ml (1ml/kcal) Nutritional Problem 1. Problem Problem No nutritional problem at this time. Intervention/Recommendation Comments 1. Continue with current diet order. Avg PO intake is adequate. Expected Outcomes/Goals Expected Outcomes/Goals 1. PO intake continue to meet at least 75% of estimated nutritional needs.
[2016-09-14] MEDS: Levothyroxine 0.125 Mg Tab PO SCH (06:32)
[2016-09-14] MEDS: Escitalopram Oxalate 5 mg Tab PO SCH (08:25)
[2016-09-14] MEDS: Multivitamin w/ Minerals Tab PO SCH (08:26)
--- NOTE | 2016-09-14 14:22 | Internal Medicine Prog Note ---
Internal Medicine Subjective - Subjective Service Date: 09/14/16 Patient seen and examined:: with staff Patient is:: awake Internal Medicine Objective - Results Result Diagrams: 08/30/16 14:15 08/30/16 14:15 Recent Labs: Laboratory Last Values WBC 8.1 Th/cmm (4.8-10.8) 08/30/16 14:15 RBC 4.32 Mil/cmm (3.80-5.20) 08/30/16 14:15 Hgb 12.2 gm/dL (11.7-16.1) 08/30/16 14:15 Hct 35.6 % (35.0-45.0) 08/30/16 14:15 MCV 82.4 fl (81-100) 08/30/16 14:15 MCH 28.2 pg (27.0-31.0) 08/30/16 14:15 MCHC Differential 34.2 pg (28.0-36.0) 08/30/16 14:15 RDW 13.5 % (11.5-20.0) 08/30/16 14:15 Plt Count 370 Th/cmm (150-400) D 08/30/16 14:15 MPV 6.7 fl 08/30/16 14:15 Neutrophils % 65.7 % (40.0-80.0) 08/30/16 14:15 Lymphocytes % 24.0 % (20.0-50.0) 08/30/16 14:15 Monocytes % 7.8 % (2.0-10.0) 08/30/16 14:15 Eosinophils % 1.7 % (0.0-5.0) 08/30/16 14:15 Basophils % 0.8 % (0.0-2.0) 08/30/16 14:15 Sodium 121 mEq/L (136-145) L 08/30/16 14:15 Potassium 4.3 mEq/L (3.5-5.1) 08/30/16 14:15 Chloride 91 mEq/L (98-107) L 08/30/16 14:15 Carbon Dioxide 26.2 mEq/L (21.0-31.0) 08/30/16 14:15 Anion Gap 8.1 (7.0-16.0) 08/30/16 14:15 BUN 8 mg/dL (7-25) 08/30/16 14:15 Creatinine 0.5 mg/dL (0.6-1.2) L 08/30/16 14:15 Est GFR ( Amer) TNP 08/30/16 14:15 Est GFR (Non-Af Amer) TNP 08/30/16 14:15 BUN/Creatinine Ratio 16.0 08/30/16 14:15 Glucose 153 mg/dL (70-105) H 08/30/16 14:15 Calcium 9.5 mg/dL (8.6-10.3) 08/30/16 14:15 Total Bilirubin 0.3 mg/dL (0.3-1.0) 08/30/16 14:15 GGTP 17 IU/L (0-60) 08/30/16 14:15 AST 21 U/L (13-39) 08/30/16 14:15 ALT 17 U/L (7-52) 08/30/16 14:15 Alkaline Phosphatase 89 U/L (34-104) 08/30/16 14:15 Total Protein 7.3 gm/dL (6.0-8.3) 08/30/16 14:15 Albumin 4.1 gm/dL (3.7-5.3) 08/30/16 14:15 Globulin 3.2 gm/dL 08/30/16 14:15 Albumin/Globulin Ratio 1.3 (1.0-1.8) 08/30/16 14:15 Lipase 22 U/L (11-82) 08/30/16 14:15 TSH 1.19 uIU/ml (0.34-5.60) 08/30/16 14:15 Urine Source CLEAN C 08/30/16 14:00 Urine Color YELLOW 08/30/16 14:00 Urine Clarity SLIGHT HAZY (CLEAR) 08/30/16 14:00 Urine pH 6.5 08/30/16 14:00 Ur Specific [place] 1.015 (1.005-1.030) 08/30/16 14:00 Urine Protein NEGATIVE mg/dL (NEGATIVE) 08/30/16 14:00 Urine Glucose (UA) NEGATIVE mg/dL (NEGATIVE) 08/30/16 14:00 Urine Ketones NEGATIVE mg/dL (NEGATIVE) 08/30/16 14:00 Urine Blood TRACE (NEGATIVE) 08/30/16 14:00 Urine Nitrate NEGATIVE (NEGATIVE) 08/30/16 14:00 Urine Bilirubin NEGATIVE (NEGATIVE) 08/30/16 14:00 Urine Urobilinogen 0.2 E.U./dL (0.2 - 1.0) 08/30/16 14:00 Ur Leukocyte Esterase LARGE (NEGATIVE) H 08/30/16 14:00 Urine RBC 2-5 /hpf (0-5) 08/30/16 14:00 Urine WBC 25-50 /hpf (0-5) H 08/30/16 14:00 Ur Epithelial Cells OCCASIONAL /lpf (FEW) 08/30/16 14:00 Urine Bacteria 1+ /hpf (NONE SEEN) H 08/30/16 14:00 Salicylates < 25.0 mg/L (30.0-100.0) L 08/30/16 14:15 Urine Opiates Screen NEGATIVE (NEGATIVE) 08/30/16 14:00 Urine Methadone Screen NEGATIVE (NEGATIVE) 08/30/16 14:00 Acetaminophen < 10.0 ug/mL (10.0-30.0) L 08/30/16 14:15 Ur Barbiturates Screen NEGATIVE (NEGATIVE) 08/30/16 14:00 Ur Tricyclics Screen NEGATIVE (NEGATIVE) 08/30/16 14:00 Ur Phencyclidine Scrn NEGATIVE (NEGATIVE) 08/30/16 14:00 Amphetamines Screen NEGATIVE (NEGATIVE) 08/30/16 14:00 U Methamphetamines Scrn NEGATIVE (NEGATIVE) 08/30/16 14:00 U Benzodiazepines Scrn NEGATIVE (NEGATIVE) 08/30/16 14:00 U Cocaine Metab Screen NEGATIVE (NEGATIVE) 08/30/16 14:00 U Cannabinoids Screen NEGATIVE (NEGATIVE) 08/30/16 14:00 Ethyl Alcohol < 10 mg/dL (0-10) 08/30/16 14:15 RPR NONREACTIVE (NONREACTIVE) 08/30/16 14:15 - Physical Exam Vitals and I&O: Vital Signs Temp 98.6 F 09/14/16 06:00 Pulse 73 09/14/16 11:43 Resp 19 09/14/16 11:43 BP 130/66 09/14/16 08:28 Pulse Ox 98 09/14/16 06:00 Intake & Output 09/13/16 09/14/16 09/14/16 18:59 06:59 18:59 Intake Total 2400 240 Output Total 200 Balance 2200 240 Intake: Oral 2400 240 Output: Stool 200 Other: # Voids 5 2 Stool Characteristics Soft Formed Brown Active Medications: Current Medications Acetaminophen (Tylenol) 650 mg PO Q4H PRN PRN Reason: PAIN Stop: 10/29/16 23:25 Ascorbic Acid (Vitamin C) 500 mg PO DAILY NICOLE Stop: 10/30/16 08:59 Last Admin: 09/14/16 08:26 Dose: 500 mg Atenolol (Tenormin) 25 mg PO DAILY NICOLE Stop: 10/30/16 08:59 Last Admin: 09/14/16 08:27 Dose: 25 mg Divalproex Sodium (Depakote Sprinkle) 250 mg PO Q8HR NICOLE PRN Reason: Protocol Stop: 11/13/16 12:59 Last Admin: 09/14/16 13:39 Dose: Not Given Docusate Sodium (Colace) 100 mg PO BID [facility] Stop: 10/30/16 08:59 Last Admin: 09/14/16 08:26 Dose: 100 mg Escitalopram Oxalate (Lexapro) 10 mg PO DAILY NICOLE Stop: 11/14/16 08:59 Levothyroxine Sodium (Synthroid) 0.125 mg PO QDAC [facility] Stop: 10/30/16 07:29 Last Admin: 09/14/16 06:32 Dose: 0.125 mg Lisinopril (Zestril) 20 mg PO DAILY [facility] Stop: 10/30/16 08:59 Last Admin: 09/14/16 08:28 Dose: 20 mg Magnesium Hydroxide (Milk Of Magnesia) 30 ml PO DAILY PRN PRN Reason: Constipation Stop: 10/29/16 23:25 Olanzapine (Zyprexa) 30 mg PO DAILY NICOLE PRN Reason: Protocol Stop: 11/10/16 07:30 Last Admin: 09/14/16 08:26 Dose: 30 mg Sodium Chloride (Nacl Tab) 1 gm PO TID [facility] Stop: 10/30/16 20:59 Last Admin: 09/14/16 13:39 Dose: 1 gm General: alert HEENT: NC/AT, PERRLA Neck: Supple - Procedures Procedures: Procedures Procedure Code Date APPENDECTOMY ADD-ON 93971 08/04/15 BYPASS TRANSVERSE COLON TO CUTANEOUS, OPEN APPROACH [id number] 08/04/15 COLOSTOMY 05573 08/04/15 EXCISION OF LARGE INTESTINE, OPEN APPROACH [id number] 08/04/15 GROUP PSYCHOTHERAPY 71556 07/31/15 GROUP PSYCHOTHERAPY GZHZZZZ 07/31/15 GROUP PSYCHOTHERAPY 87925 04/02/15 GROUP PSYCHOTHERAPY GZHZZZZ 04/02/15 OTHER GROUP THERAPY 94.44 11/07/14 PARTIAL REMOVAL OF COLON 02823 08/04/15 RECREATIONAL THERAPY 93.81 02/21/10 RESECTION OF APPENDIX, OPEN APPROACH [id number] 08/04/15 Internal Medicine Assmt/Plan - Assessment Assessment: Urinary tract infection hyponatremia hypertension hypothyroidism dementia status post colostomy rectal prolapse repair hernia repai. - Plan Plan: encourage fluids cpm Nutritional Asmnt/Malnutr-PDOC - Dietary Evaluation Malnutrition Findings (Please click <Entered> for more info): Nutritional Asmnt/Malnutrition Start: 09/06/16 15: 04 Text: Status: Complete Freq: Document 09/06/16 15:04 GSUN (Rec: 09/06/16 15:21 [email or web address]) Nutritional Asmnt/Malnutrition Patient General Information Nutritional Screening Diagnosis Diagnosis UTI, major depression recurrent with psychosis, r/o schizoaffective disorde Pertinent Medical Hx/Surgical Hx Dementia, HTN, hypothyroidism, s/p colostomy secondary to hernia and rectal prolapse repair. Subjective Information 76 year old female. Visited pt during meal time, pt was eating in bed without difficulties, appeared easily irritable. Pt did not respond to RD questions and became combative when RD got near. Obtained CBW via bedscale. Observed lunch 100% consumed. Avg PO intake 100% since adm, meeting nutritional needs. Pt appeared overweight without significant wasting noted. Current Diet Order/ Nutrition Support [facility] chopped Pertinent Medications Vitamin C, Colace, Levaquin, Synthroid, MOM Pertinent Labs 08/30: glucose 153H (no DM noted in H&P) Nutritional Hx/Data Height 5 ft 3 in Height (Calculated Centimeters) 160.0 Current Weight (lbs) 149 lb 14.4 oz Weight (Calculated Kilograms) 68.0 Weight (Calculated Grams) 30772.5 [place] Body Weight 115 Weight Status Overweight GI Symptoms Food Allergies No Usual diet at home [place]: [facility] soft Skin Integrity/Comment: Fabrizio Santos. 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 Current %PO Good (75-100%) Estimated Nutritional Goals Calories/Kcals/Kg IBW 115lb/52.3kg Kcals Calculated 1308-1569kcal (25-30kcal/kg) Protein g/kg: IBW Protein Calculated 52g (1g/kg) Fluid: ml 1308-1569ml (1ml/kcal) Nutritional Problem 1. Problem Problem No nutritional problem at this time. Intervention/Recommendation Comments 1. Continue with current diet order. Avg PO intake is adequate. Expected Outcomes/Goals Expected Outcomes/Goals 1. PO intake continue to meet at least 75% of estimated nutritional needs.
[2016-09-15] MEDS: Levothyroxine 0.125 Mg Tab PO SCH (10:09)
[2016-09-15] MEDS: Multivitamin w/ Minerals Tab PO SCH (10:09)
--- NOTE | 2016-09-15 12:17 | Internal Medicine Prog Note ---
Internal Medicine Subjective - Subjective Service Date: 09/15/16 Patient seen and examined:: with staff Patient is:: awake Per staff patient has:: no adverse event Internal Medicine Objective - Results Result Diagrams: 08/30/16 14:15 08/30/16 14:15 Recent Labs: Laboratory Last Values WBC 8.1 Th/cmm (4.8-10.8) 08/30/16 14:15 RBC 4.32 Mil/cmm (3.80-5.20) 08/30/16 14:15 Hgb 12.2 gm/dL (11.7-16.1) 08/30/16 14:15 Hct 35.6 % (35.0-45.0) 08/30/16 14:15 MCV 82.4 fl (81-100) 08/30/16 14:15 MCH 28.2 pg (27.0-31.0) 08/30/16 14:15 MCHC Differential 34.2 pg (28.0-36.0) 08/30/16 14:15 RDW 13.5 % (11.5-20.0) 08/30/16 14:15 Plt Count 370 Th/cmm (150-400) D 08/30/16 14:15 MPV 6.7 fl 08/30/16 14:15 Neutrophils % 65.7 % (40.0-80.0) 08/30/16 14:15 Lymphocytes % 24.0 % (20.0-50.0) 08/30/16 14:15 Monocytes % 7.8 % (2.0-10.0) 08/30/16 14:15 Eosinophils % 1.7 % (0.0-5.0) 08/30/16 14:15 Basophils % 0.8 % (0.0-2.0) 08/30/16 14:15 Sodium 121 mEq/L (136-145) L 08/30/16 14:15 Potassium 4.3 mEq/L (3.5-5.1) 08/30/16 14:15 Chloride 91 mEq/L (98-107) L 08/30/16 14:15 Carbon Dioxide 26.2 mEq/L (21.0-31.0) 08/30/16 14:15 Anion Gap 8.1 (7.0-16.0) 08/30/16 14:15 BUN 8 mg/dL (7-25) 08/30/16 14:15 Creatinine 0.5 mg/dL (0.6-1.2) L 08/30/16 14:15 Est GFR ( Amer) TNP 08/30/16 14:15 Est GFR (Non-Af Amer) TNP 08/30/16 14:15 BUN/Creatinine Ratio 16.0 08/30/16 14:15 Glucose 153 mg/dL (70-105) H 08/30/16 14:15 Calcium 9.5 mg/dL (8.6-10.3) 08/30/16 14:15 Total Bilirubin 0.3 mg/dL (0.3-1.0) 08/30/16 14:15 GGTP 17 IU/L (0-60) 08/30/16 14:15 AST 21 U/L (13-39) 08/30/16 14:15 ALT 17 U/L (7-52) 08/30/16 14:15 Alkaline Phosphatase 89 U/L (34-104) 08/30/16 14:15 Total Protein 7.3 gm/dL (6.0-8.3) 08/30/16 14:15 Albumin 4.1 gm/dL (3.7-5.3) 08/30/16 14:15 Globulin 3.2 gm/dL 08/30/16 14:15 Albumin/Globulin Ratio 1.3 (1.0-1.8) 08/30/16 14:15 Lipase 22 U/L (11-82) 08/30/16 14:15 TSH 1.19 uIU/ml (0.34-5.60) 08/30/16 14:15 Urine Source CLEAN C 08/30/16 14:00 Urine Color YELLOW 08/30/16 14:00 Urine Clarity SLIGHT HAZY (CLEAR) 08/30/16 14:00 Urine pH 6.5 08/30/16 14:00 Ur Specific [place] 1.015 (1.005-1.030) 08/30/16 14:00 Urine Protein NEGATIVE mg/dL (NEGATIVE) 08/30/16 14:00 Urine Glucose (UA) NEGATIVE mg/dL (NEGATIVE) 08/30/16 14:00 Urine Ketones NEGATIVE mg/dL (NEGATIVE) 08/30/16 14:00 Urine Blood TRACE (NEGATIVE) 08/30/16 14:00 Urine Nitrate NEGATIVE (NEGATIVE) 08/30/16 14:00 Urine Bilirubin NEGATIVE (NEGATIVE) 08/30/16 14:00 Urine Urobilinogen 0.2 E.U./dL (0.2 - 1.0) 08/30/16 14:00 Ur Leukocyte Esterase LARGE (NEGATIVE) H 08/30/16 14:00 Urine RBC 2-5 /hpf (0-5) 08/30/16 14:00 Urine WBC 25-50 /hpf (0-5) H 08/30/16 14:00 Ur Epithelial Cells OCCASIONAL /lpf (FEW) 08/30/16 14:00 Urine Bacteria 1+ /hpf (NONE SEEN) H 08/30/16 14:00 Salicylates < 25.0 mg/L (30.0-100.0) L 08/30/16 14:15 Urine Opiates Screen NEGATIVE (NEGATIVE) 08/30/16 14:00 Urine Methadone Screen NEGATIVE (NEGATIVE) 08/30/16 14:00 Acetaminophen < 10.0 ug/mL (10.0-30.0) L 08/30/16 14:15 Ur Barbiturates Screen NEGATIVE (NEGATIVE) 08/30/16 14:00 Ur Tricyclics Screen NEGATIVE (NEGATIVE) 08/30/16 14:00 Ur Phencyclidine Scrn NEGATIVE (NEGATIVE) 08/30/16 14:00 Amphetamines Screen NEGATIVE (NEGATIVE) 08/30/16 14:00 U Methamphetamines Scrn NEGATIVE (NEGATIVE) 08/30/16 14:00 U Benzodiazepines Scrn NEGATIVE (NEGATIVE) 08/30/16 14:00 U Cocaine Metab Screen NEGATIVE (NEGATIVE) 08/30/16 14:00 U Cannabinoids Screen NEGATIVE (NEGATIVE) 08/30/16 14:00 Ethyl Alcohol < 10 mg/dL (0-10) 08/30/16 14:15 RPR NONREACTIVE (NONREACTIVE) 08/30/16 14:15 - Physical Exam Vitals and I&O: Vital Signs Temp 98.2 F 09/14/16 14:00 Pulse 77 09/15/16 11:14 Resp 20 09/15/16 11:14 BP 115/68 09/14/16 14:00 Pulse Ox 97 09/14/16 14:00 Intake & Output 06/09/15/16 09/15/16 18:59 06:59 18:59 Intake Total 1000 Balance 1000 Intake: Oral 1000 Other: # Voids 3 # Bowel Movements 1 Stool Characteristics Soft Soft Formed Formed Brown Brown Active Medications: Current Medications Acetaminophen (Tylenol) 650 mg PO Q4H PRN PRN Reason: PAIN Stop: 10/29/16 23:25 Ascorbic Acid (Vitamin C) 500 mg PO DAILY NICOLE Stop: 10/30/16 08:59 Last Admin: 09/15/16 10:09 Dose: Not Given Atenolol (Tenormin) 25 mg PO DAILY NICOLE Stop: 10/30/16 08:59 Last Admin: 09/15/16 10:09 Dose: Not Given Divalproex Sodium (Depakote Sprinkle) 500 mg PO Q12HR NICOLE PRN Reason: Protocol Stop: 11/14/16 20:59 Docusate Sodium (Colace) 100 mg PO BID [facility] Stop: 10/30/16 08:59 Last Admin: 09/15/16 10:09 Dose: Not Given Escitalopram Oxalate (Lexapro) 10 mg PO DAILY [facility] Stop: 11/14/16 08:59 Last Admin: 09/15/16 10:09 Dose: Not Given Levothyroxine Sodium (Synthroid) 0.125 mg PO QDAC [facility] Stop: 10/30/16 07:29 Last Admin: 09/15/16 10:09 Dose: Not Given Lisinopril (Zestril) 20 mg PO DAILY [facility] Stop: 10/30/16 08:59 Last Admin: 09/15/16 10:09 Dose: Not Given Magnesium Hydroxide (Milk Of Magnesia) 30 ml PO DAILY PRN PRN Reason: Constipation Stop: 10/29/16 23:25 Olanzapine (Zyprexa) 30 mg PO DAILY NICOLE PRN Reason: Protocol Stop: 11/10/16 07:30 Last Admin: 09/15/16 10:09 Dose: Not Given Sodium Chloride (Nacl Tab) 1 gm PO TID [facility] Stop: 10/30/16 20:59 Last Admin: 09/15/16 10:09 Dose: Not Given General: alert HEENT: NC/AT, PERRLA Neck: Supple Lungs: CTAB Cardiovascular: RRR, Normal S1, Normal S2 Abdomen: soft, non-tender Neurological: no change - Procedures Procedures: Procedures Procedure Code Date APPENDECTOMY ADD-ON 91579 08/04/15 BYPASS TRANSVERSE COLON TO CUTANEOUS, OPEN APPROACH [id number] 08/04/15 COLOSTOMY 18731 08/04/15 EXCISION OF LARGE INTESTINE, OPEN APPROACH [id number] 08/04/15 GROUP PSYCHOTHERAPY 86858 07/31/15 GROUP PSYCHOTHERAPY GZHZZZZ 07/31/15 GROUP PSYCHOTHERAPY 95149 04/02/15 GROUP PSYCHOTHERAPY GZHZZZZ 04/02/15 OTHER GROUP THERAPY 94.44 11/07/14 PARTIAL REMOVAL OF COLON 16519 08/04/15 RECREATIONAL THERAPY 93.81 02/21/10 RESECTION OF APPENDIX, OPEN APPROACH [id number] 08/04/15 Internal Medicine Assmt/Plan - Assessment Assessment: Urinary tract infection hyponatremia hypertension hypothyroidism dementia status post colostomy rectal prolapse repair hernia repai. - Plan Plan: encourage fluids cpm Nutritional Asmnt/Malnutr-PDOC - Dietary Evaluation Malnutrition Findings (Please click <Entered> for more info): Nutritional Asmnt/Malnutrition Start: 09/06/16 15: 04 Text: Status: Complete Freq: Document 09/06/16 15:04 GSUN (Rec: 09/06/16 15:21 [email or web address]) Nutritional Asmnt/Malnutrition Patient General Information Nutritional Screening Diagnosis Diagnosis UTI, major depression recurrent with psychosis, r/o schizoaffective disorde Pertinent Medical Hx/Surgical Hx Dementia, HTN, hypothyroidism, s/p colostomy secondary to hernia and rectal prolapse repair. Subjective Information 76 year old female. Visited pt during meal time, pt was eating in bed without difficulties, appeared easily irritable. Pt did not respond to RD questions and became combative when RD got near. Obtained CBW via bedscale. Observed lunch 100% consumed. Avg PO intake 100% since adm, meeting nutritional needs. Pt appeared overweight without significant wasting noted. Current Diet Order/ Nutrition Support [facility] chopped Pertinent Medications Vitamin C, Colace, Levaquin, Synthroid, MOM Pertinent Labs 08/30: glucose 153H (no DM noted in H&P) Nutritional Hx/Data Height 5 ft 3 in Height (Calculated Centimeters) 160.0 Current Weight (lbs) 149 lb 14.4 oz Weight (Calculated Kilograms) 68.0 Weight (Calculated Grams) 13320.5 [place] Body Weight 115 Weight Status Overweight GI Symptoms Food Allergies No Usual diet at home [place]: [facility] soft Skin Integrity/Comment: Fabrizio Santos. 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 Current %PO Good (75-100%) Estimated Nutritional Goals Calories/Kcals/Kg IBW 115lb/52.3kg Kcals Calculated 1308-1569kcal (25-30kcal/kg) Protein g/kg: IBW Protein Calculated 52g (1g/kg) Fluid: ml 1308-1569ml (1ml/kcal) Nutritional Problem 1. Problem Problem No nutritional problem at this time. Intervention/Recommendation Comments 1. Continue with current diet order. Avg PO intake is adequate. Expected Outcomes/Goals Expected Outcomes/Goals 1. PO intake continue to meet at least 75% of estimated nutritional needs.
[2016-09-16] MEDS: Levothyroxine 0.125 Mg Tab PO SCH (06:31)
[2016-09-16] MEDS: Multivitamin w/ Minerals Tab PO SCH (09:59)
--- NOTE | 2016-09-16 12:15 | Internal Medicine Prog Note ---
Internal Medicine Subjective - Subjective Service Date: 09/16/16 Patient seen and examined:: with staff Patient is:: awake Per staff patient has:: no adverse event Internal Medicine Objective - Results Result Diagrams: 08/30/16 14:15 08/30/16 14:15 Recent Labs: Laboratory Last Values WBC 8.1 Th/cmm (4.8-10.8) 08/30/16 14:15 RBC 4.32 Mil/cmm (3.80-5.20) 08/30/16 14:15 Hgb 12.2 gm/dL (11.7-16.1) 08/30/16 14:15 Hct 35.6 % (35.0-45.0) 08/30/16 14:15 MCV 82.4 fl (81-100) 08/30/16 14:15 MCH 28.2 pg (27.0-31.0) 08/30/16 14:15 MCHC Differential 34.2 pg (28.0-36.0) 08/30/16 14:15 RDW 13.5 % (11.5-20.0) 08/30/16 14:15 Plt Count 370 Th/cmm (150-400) D 08/30/16 14:15 MPV 6.7 fl 08/30/16 14:15 Neutrophils % 65.7 % (40.0-80.0) 08/30/16 14:15 Lymphocytes % 24.0 % (20.0-50.0) 08/30/16 14:15 Monocytes % 7.8 % (2.0-10.0) 08/30/16 14:15 Eosinophils % 1.7 % (0.0-5.0) 08/30/16 14:15 Basophils % 0.8 % (0.0-2.0) 08/30/16 14:15 Sodium 121 mEq/L (136-145) L 08/30/16 14:15 Potassium 4.3 mEq/L (3.5-5.1) 08/30/16 14:15 Chloride 91 mEq/L (98-107) L 08/30/16 14:15 Carbon Dioxide 26.2 mEq/L (21.0-31.0) 08/30/16 14:15 Anion Gap 8.1 (7.0-16.0) 08/30/16 14:15 BUN 8 mg/dL (7-25) 08/30/16 14:15 Creatinine 0.5 mg/dL (0.6-1.2) L 08/30/16 14:15 Est GFR ( Amer) TNP 08/30/16 14:15 Est GFR (Non-Af Amer) TNP 08/30/16 14:15 BUN/Creatinine Ratio 16.0 08/30/16 14:15 Glucose 153 mg/dL (70-105) H 08/30/16 14:15 Calcium 9.5 mg/dL (8.6-10.3) 08/30/16 14:15 Total Bilirubin 0.3 mg/dL (0.3-1.0) 08/30/16 14:15 GGTP 17 IU/L (0-60) 08/30/16 14:15 AST 21 U/L (13-39) 08/30/16 14:15 ALT 17 U/L (7-52) 08/30/16 14:15 Alkaline Phosphatase 89 U/L (34-104) 08/30/16 14:15 Total Protein 7.3 gm/dL (6.0-8.3) 08/30/16 14:15 Albumin 4.1 gm/dL (3.7-5.3) 08/30/16 14:15 Globulin 3.2 gm/dL 08/30/16 14:15 Albumin/Globulin Ratio 1.3 (1.0-1.8) 08/30/16 14:15 Lipase 22 U/L (11-82) 08/30/16 14:15 TSH 1.19 uIU/ml (0.34-5.60) 08/30/16 14:15 Urine Source CLEAN C 08/30/16 14:00 Urine Color YELLOW 08/30/16 14:00 Urine Clarity SLIGHT HAZY (CLEAR) 08/30/16 14:00 Urine pH 6.5 08/30/16 14:00 Ur Specific [place] 1.015 (1.005-1.030) 08/30/16 14:00 Urine Protein NEGATIVE mg/dL (NEGATIVE) 08/30/16 14:00 Urine Glucose (UA) NEGATIVE mg/dL (NEGATIVE) 08/30/16 14:00 Urine Ketones NEGATIVE mg/dL (NEGATIVE) 08/30/16 14:00 Urine Blood TRACE (NEGATIVE) 08/30/16 14:00 Urine Nitrate NEGATIVE (NEGATIVE) 08/30/16 14:00 Urine Bilirubin NEGATIVE (NEGATIVE) 08/30/16 14:00 Urine Urobilinogen 0.2 E.U./dL (0.2 - 1.0) 08/30/16 14:00 Ur Leukocyte Esterase LARGE (NEGATIVE) H 08/30/16 14:00 Urine RBC 2-5 /hpf (0-5) 08/30/16 14:00 Urine WBC 25-50 /hpf (0-5) H 08/30/16 14:00 Ur Epithelial Cells OCCASIONAL /lpf (FEW) 08/30/16 14:00 Urine Bacteria 1+ /hpf (NONE SEEN) H 08/30/16 14:00 Salicylates < 25.0 mg/L (30.0-100.0) L 08/30/16 14:15 Urine Opiates Screen NEGATIVE (NEGATIVE) 08/30/16 14:00 Urine Methadone Screen NEGATIVE (NEGATIVE) 08/30/16 14:00 Acetaminophen < 10.0 ug/mL (10.0-30.0) L 08/30/16 14:15 Ur Barbiturates Screen NEGATIVE (NEGATIVE) 08/30/16 14:00 Ur Tricyclics Screen NEGATIVE (NEGATIVE) 08/30/16 14:00 Ur Phencyclidine Scrn NEGATIVE (NEGATIVE) 08/30/16 14:00 Amphetamines Screen NEGATIVE (NEGATIVE) 08/30/16 14:00 U Methamphetamines Scrn NEGATIVE (NEGATIVE) 08/30/16 14:00 U Benzodiazepines Scrn NEGATIVE (NEGATIVE) 08/30/16 14:00 U Cocaine Metab Screen NEGATIVE (NEGATIVE) 08/30/16 14:00 U Cannabinoids Screen NEGATIVE (NEGATIVE) 08/30/16 14:00 Ethyl Alcohol < 10 mg/dL (0-10) 08/30/16 14:15 RPR NONREACTIVE (NONREACTIVE) 08/30/16 14:15 - Physical Exam Vitals and I&O: Vital Signs Temp 98.3 F 09/16/16 06:59 Pulse 90 09/16/16 06:59 Resp 18 09/16/16 06:59 BP 124/84 09/16/16 06:59 Pulse Ox 98 09/16/16 06:59 Intake & Output 06/09/16/16 09/16/16 18:59 06:59 18:59 Intake Total 1200 Balance 1200 Intake: Oral 1200 Other: # Voids 5 1 # Bowel Movements 1 Stool Characteristics Soft Soft Formed Formed Brown Brown Active Medications: Current Medications Acetaminophen (Tylenol) 650 mg PO Q4H PRN PRN Reason: PAIN Stop: 10/29/16 23:25 Ascorbic Acid (Vitamin C) 500 mg PO DAILY NICOLE Stop: 10/30/16 08:59 Last Admin: 09/16/16 09:58 Dose: Not Given Atenolol (Tenormin) 25 mg PO DAILY NICOLE Stop: 10/30/16 08:59 Last Admin: 09/16/16 09:59 Dose: Not Given Divalproex Sodium (Depakote Sprinkle) 500 mg PO Q12HR NICOLE PRN Reason: Protocol Stop: 11/14/16 20:59 Last Admin: 09/16/16 09:59 Dose: Not Given Docusate Sodium (Colace) 100 mg PO BID [facility] Stop: 10/30/16 08:59 Last Admin: 09/16/16 09:58 Dose: Not Given Escitalopram Oxalate (Lexapro) 10 mg PO DAILY NICOLE Stop: 11/14/16 08:59 Last Admin: 09/16/16 09:59 Dose: Not Given Levothyroxine Sodium (Synthroid) 0.125 mg PO QDAC NICOLE Stop: 10/30/16 07:29 Last Admin: 09/16/16 06:31 Dose: 0.125 mg Lisinopril (Zestril) 20 mg PO DAILY [facility] Stop: 10/30/16 08:59 Last Admin: 09/16/16 09:59 Dose: Not Given Magnesium Hydroxide (Milk Of Magnesia) 30 ml PO DAILY PRN PRN Reason: Constipation Stop: 10/29/16 23:25 Olanzapine (Zyprexa) 30 mg PO DAILY NICOLE PRN Reason: Protocol Stop: 11/10/16 07:30 Last Admin: 09/16/16 09:59 Dose: Not Given Sodium Chloride (Nacl Tab) 1 gm PO TID NICOLE Stop: 10/30/16 20:59 Last Admin: 09/16/16 09:59 Dose: Not Given General: alert HEENT: NC/AT, PERRLA Neck: Supple Lungs: CTAB Cardiovascular: RRR, Normal S1, Normal S2, without murmur Abdomen: soft, non-tender, non-distended - Procedures Procedures: Procedures Procedure Code Date APPENDECTOMY ADD-ON 78329 08/04/15 BYPASS TRANSVERSE COLON TO CUTANEOUS, OPEN APPROACH [id number] 08/04/15 COLOSTOMY 58495 08/04/15 EXCISION OF LARGE INTESTINE, OPEN APPROACH [id number] 08/04/15 GROUP PSYCHOTHERAPY 64016 07/31/15 GROUP PSYCHOTHERAPY GZHZZZZ 07/31/15 GROUP PSYCHOTHERAPY 86699 04/02/15 GROUP PSYCHOTHERAPY GZHZZZZ 04/02/15 OTHER GROUP THERAPY 94.44 11/07/14 PARTIAL REMOVAL OF COLON 34660 08/04/15 RECREATIONAL THERAPY 93.81 02/21/10 RESECTION OF APPENDIX, OPEN APPROACH [id number] 08/04/15 Internal Medicine Assmt/Plan - Assessment Assessment: Urinary tract infection hyponatremia hypertension hypothyroidism dementia status post colostomy rectal prolapse repair hernia repai. - Plan Plan: encourage fluids cpm Nutritional Asmnt/Malnutr-PDOC - Dietary Evaluation Malnutrition Findings (Please click <Entered> for more info): Nutritional Asmnt/Malnutrition Start: 09/06/16 15: 04 Text: Status: Complete Freq: Document 09/06/16 15:04 GSUN (Rec: 09/06/16 15:21 [email or web address]) Nutritional Asmnt/Malnutrition Patient General Information Nutritional Screening Diagnosis Diagnosis UTI, major depression recurrent with psychosis, r/o schizoaffective disorde Pertinent Medical Hx/Surgical Hx Dementia, HTN, hypothyroidism, s/p colostomy secondary to hernia and rectal prolapse repair. Subjective Information 76 year old female. Visited pt during meal time, pt was eating in bed without difficulties, appeared easily irritable. Pt did not respond to RD questions and became combative when RD got near. Obtained CBW via bedscale. Observed lunch 100% consumed. Avg PO intake 100% since adm, meeting nutritional needs. Pt appeared overweight without significant wasting noted. Current Diet Order/ Nutrition Support [facility] chopped Pertinent Medications Vitamin C, Colace, Levaquin, Synthroid, MOM Pertinent Labs 08/30: glucose 153H (no DM noted in H&P) Nutritional Hx/Data Height 5 ft 3 in Height (Calculated Centimeters) 160.0 Current Weight (lbs) 149 lb 14.4 oz Weight (Calculated Kilograms) 68.0 Weight (Calculated Grams) 34497.5 [place] Body Weight 115 Weight Status Overweight GI Symptoms Food Allergies No Usual diet at home [place]: [facility] soft Skin Integrity/Comment: Fabrizio Santos. 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 Current %PO Good (75-100%) Estimated Nutritional Goals Calories/Kcals/Kg IBW 115lb/52.3kg Kcals Calculated 1308-1569kcal (25-30kcal/kg) Protein g/kg: IBW Protein Calculated 52g (1g/kg) Fluid: ml 1308-1569ml (1ml/kcal) Nutritional Problem 1. Problem Problem No nutritional problem at this time. Intervention/Recommendation Comments 1. Continue with current diet order. Avg PO intake is adequate. Expected Outcomes/Goals Expected Outcomes/Goals 1. PO intake continue to meet at least 75% of estimated nutritional needs.
[2016-09-16] MEDS ORDERED: Haloperidol Lactate 5 mg/mL 1mL Vial ONE (15:05)
[2016-09-16] MEDS ORDERED: Haloperidol Lactate 5 mg/mL 1mL Vial IM STA (15:10)
[2016-09-17] MEDS: Levothyroxine 0.125 Mg Tab PO SCH (06:33)
[2016-09-17] MEDS: Multivitamin w/ Minerals Tab PO SCH (09:34)
--- NOTE | 2016-09-17 11:04 | Internal Medicine Prog Note ---
Internal Medicine Subjective - Subjective Service Date: 09/17/16 Patient seen and examined:: with staff Patient is:: awake Per staff patient has:: no adverse event Internal Medicine Objective - Results Result Diagrams: 08/30/16 14:15 08/30/16 14:15 Recent Labs: Laboratory Last Values WBC 8.1 Th/cmm (4.8-10.8) 08/30/16 14:15 RBC 4.32 Mil/cmm (3.80-5.20) 08/30/16 14:15 Hgb 12.2 gm/dL (11.7-16.1) 08/30/16 14:15 Hct 35.6 % (35.0-45.0) 08/30/16 14:15 MCV 82.4 fl (81-100) 08/30/16 14:15 MCH 28.2 pg (27.0-31.0) 08/30/16 14:15 MCHC Differential 34.2 pg (28.0-36.0) 08/30/16 14:15 RDW 13.5 % (11.5-20.0) 08/30/16 14:15 Plt Count 370 Th/cmm (150-400) D 08/30/16 14:15 MPV 6.7 fl 08/30/16 14:15 Neutrophils % 65.7 % (40.0-80.0) 08/30/16 14:15 Lymphocytes % 24.0 % (20.0-50.0) 08/30/16 14:15 Monocytes % 7.8 % (2.0-10.0) 08/30/16 14:15 Eosinophils % 1.7 % (0.0-5.0) 08/30/16 14:15 Basophils % 0.8 % (0.0-2.0) 08/30/16 14:15 Sodium 121 mEq/L (136-145) L 08/30/16 14:15 Potassium 4.3 mEq/L (3.5-5.1) 08/30/16 14:15 Chloride 91 mEq/L (98-107) L 08/30/16 14:15 Carbon Dioxide 26.2 mEq/L (21.0-31.0) 08/30/16 14:15 Anion Gap 8.1 (7.0-16.0) 08/30/16 14:15 BUN 8 mg/dL (7-25) 08/30/16 14:15 Creatinine 0.5 mg/dL (0.6-1.2) L 08/30/16 14:15 Est GFR ( Amer) TNP 08/30/16 14:15 Est GFR (Non-Af Amer) TNP 08/30/16 14:15 BUN/Creatinine Ratio 16.0 08/30/16 14:15 Glucose 153 mg/dL (70-105) H 08/30/16 14:15 Calcium 9.5 mg/dL (8.6-10.3) 08/30/16 14:15 Total Bilirubin 0.3 mg/dL (0.3-1.0) 08/30/16 14:15 GGTP 17 IU/L (0-60) 08/30/16 14:15 AST 21 U/L (13-39) 08/30/16 14:15 ALT 17 U/L (7-52) 08/30/16 14:15 Alkaline Phosphatase 89 U/L (34-104) 08/30/16 14:15 Total Protein 7.3 gm/dL (6.0-8.3) 08/30/16 14:15 Albumin 4.1 gm/dL (3.7-5.3) 08/30/16 14:15 Globulin 3.2 gm/dL 08/30/16 14:15 Albumin/Globulin Ratio 1.3 (1.0-1.8) 08/30/16 14:15 Lipase 22 U/L (11-82) 08/30/16 14:15 TSH 1.19 uIU/ml (0.34-5.60) 08/30/16 14:15 Urine Source CLEAN C 08/30/16 14:00 Urine Color YELLOW 08/30/16 14:00 Urine Clarity SLIGHT HAZY (CLEAR) 08/30/16 14:00 Urine pH 6.5 08/30/16 14:00 Ur Specific [place] 1.015 (1.005-1.030) 08/30/16 14:00 Urine Protein NEGATIVE mg/dL (NEGATIVE) 08/30/16 14:00 Urine Glucose (UA) NEGATIVE mg/dL (NEGATIVE) 08/30/16 14:00 Urine Ketones NEGATIVE mg/dL (NEGATIVE) 08/30/16 14:00 Urine Blood TRACE (NEGATIVE) 08/30/16 14:00 Urine Nitrate NEGATIVE (NEGATIVE) 08/30/16 14:00 Urine Bilirubin NEGATIVE (NEGATIVE) 08/30/16 14:00 Urine Urobilinogen 0.2 E.U./dL (0.2 - 1.0) 08/30/16 14:00 Ur Leukocyte Esterase LARGE (NEGATIVE) H 08/30/16 14:00 Urine RBC 2-5 /hpf (0-5) 08/30/16 14:00 Urine WBC 25-50 /hpf (0-5) H 08/30/16 14:00 Ur Epithelial Cells OCCASIONAL /lpf (FEW) 08/30/16 14:00 Urine Bacteria 1+ /hpf (NONE SEEN) H 08/30/16 14:00 Salicylates < 25.0 mg/L (30.0-100.0) L 08/30/16 14:15 Urine Opiates Screen NEGATIVE (NEGATIVE) 08/30/16 14:00 Urine Methadone Screen NEGATIVE (NEGATIVE) 08/30/16 14:00 Acetaminophen < 10.0 ug/mL (10.0-30.0) L 08/30/16 14:15 Ur Barbiturates Screen NEGATIVE (NEGATIVE) 08/30/16 14:00 Ur Tricyclics Screen NEGATIVE (NEGATIVE) 08/30/16 14:00 Ur Phencyclidine Scrn NEGATIVE (NEGATIVE) 08/30/16 14:00 Amphetamines Screen NEGATIVE (NEGATIVE) 08/30/16 14:00 U Methamphetamines Scrn NEGATIVE (NEGATIVE) 08/30/16 14:00 U Benzodiazepines Scrn NEGATIVE (NEGATIVE) 08/30/16 14:00 U Cocaine Metab Screen NEGATIVE (NEGATIVE) 08/30/16 14:00 U Cannabinoids Screen NEGATIVE (NEGATIVE) 08/30/16 14:00 Ethyl Alcohol < 10 mg/dL (0-10) 08/30/16 14:15 RPR NONREACTIVE (NONREACTIVE) 08/30/16 14:15 - Physical Exam Vitals and I&O: Vital Signs Temp 98 F 09/17/16 06:37 Pulse 75 09/17/16 06:37 Resp 20 09/17/16 06:37 BP 130/79 09/17/16 06:37 Pulse Ox 94 09/17/16 06:37 Intake & Output 09/16/16 09/17/1617 18:59 06:59 18:59 Intake Total 1200 240 Balance 1200 240 Weight (lbs) 149 lb Intake: Oral 1200 240 Other: # Voids 3 # Bowel Movements 1 0 Stool Characteristics Soft Formed Brown Active Medications: Current Medications Acetaminophen (Tylenol) 650 mg PO Q4H PRN PRN Reason: PAIN Stop: 10/29/16 23:25 Ascorbic Acid (Vitamin C) 500 mg PO DAILY NICOLE Stop: 10/30/16 08:59 Last Admin: 09/17/16 09:15 Dose: Not Given Atenolol (Tenormin) 25 mg PO DAILY NICOLE Stop: 10/30/16 08:59 Last Admin: 09/17/16 09:34 Dose: Not Given Divalproex Sodium (Depakote Sprinkle) 500 mg PO Q12HR NICOLE PRN Reason: Protocol Stop: 11/14/16 20:59 Last Admin: 09/17/16 09:14 Dose: 250 mg Docusate Sodium (Colace) 100 mg PO BID NICOLE Stop: 10/30/16 08:59 Last Admin: 09/17/16 09:15 Dose: Not Given Escitalopram Oxalate (Lexapro) 10 mg PO DAILY NICOLE Stop: 11/14/16 08:59 Last Admin: 09/17/16 09:15 Dose: 10 mg Levothyroxine Sodium (Synthroid) 0.125 mg PO QDAC NICOLE Stop: 10/30/16 07:29 Last Admin: 09/17/16 06:33 Dose: 0.125 mg Lisinopril (Zestril) 20 mg PO DAILY NICOLE Stop: 10/30/16 08:59 Last Admin: 09/17/16 09:34 Dose: Not Given Magnesium Hydroxide (Milk Of Magnesia) 30 ml PO DAILY PRN PRN Reason: Constipation Stop: 10/29/16 23:25 Olanzapine (Zyprexa) 30 mg PO DAILY NICOLE PRN Reason: Protocol Stop: 11/10/16 07:30 Last Admin: 09/17/16 09:13 Dose: 30 mg Sodium Chloride (Nacl Tab) 1 gm PO TID NICOLE Stop: 10/30/16 20:59 Last Admin: 09/17/16 09:15 Dose: 1 gm General: alert HEENT: NC/AT, PERRLA Neck: Supple Lungs: CTAB Cardiovascular: RRR, Normal S1, Normal S2, without murmur Abdomen: soft, non-tender, non-distended, other Extremities: clear Neurological: no change - Procedures Procedures: Procedures Procedure Code Date APPENDECTOMY ADD-ON 94601 08/04/15 BYPASS TRANSVERSE COLON TO CUTANEOUS, OPEN APPROACH [id number] 08/04/15 COLOSTOMY 86859 08/04/15 EXCISION OF LARGE INTESTINE, OPEN APPROACH [id number] 08/04/15 GROUP PSYCHOTHERAPY 00823 07/31/15 GROUP PSYCHOTHERAPY GZHZZZZ 07/31/15 GROUP PSYCHOTHERAPY 65287 04/02/15 GROUP PSYCHOTHERAPY GZHZZZZ 04/02/15 OTHER GROUP THERAPY 94.44 11/07/14 PARTIAL REMOVAL OF COLON 89083 08/04/15 RECREATIONAL THERAPY 93.81 02/21/10 RESECTION OF APPENDIX, OPEN APPROACH [id number] 08/04/15 Internal Medicine Assmt/Plan - Assessment Assessment: Urinary tract infection hyponatremia hypertension hypothyroidism dementia status post colostomy rectal prolapse repair hernia repai. - Plan Plan: encourage fluids cpm Nutritional Asmnt/Malnutr-PDOC - Dietary Evaluation Malnutrition Findings (Please click <Entered> for more info): Nutritional Asmnt/Malnutrition Start: 09/06/16 15: 04 Text: Status: Complete Freq: Document 09/06/16 15:04 GSUN (Rec: 09/06/16 15:21 [email or web address]) Nutritional Asmnt/Malnutrition Patient General Information Nutritional Screening Diagnosis Diagnosis UTI, major depression recurrent with psychosis, r/o schizoaffective disorde Pertinent Medical Hx/Surgical Hx Dementia, HTN, hypothyroidism, s/p colostomy secondary to hernia and rectal prolapse repair. Subjective Information 76 year old female. Visited pt during meal time, pt was eating in bed without difficulties, appeared easily irritable. Pt did not respond to RD questions and became combative when RD got near. Obtained CBW via bedscale. Observed lunch 100% consumed. Avg PO intake 100% since adm, meeting nutritional needs. Pt appeared overweight without significant wasting noted. Current Diet Order/ Nutrition Support [facility] chopped Pertinent Medications Vitamin C, Colace, Levaquin, Synthroid, MOM Pertinent Labs 08/30: glucose 153H (no DM noted in H&P) Nutritional Hx/Data Height 5 ft 3 in Height (Calculated Centimeters) 160.0 Current Weight (lbs) 149 lb 14.4 oz Weight (Calculated Kilograms) 68.0 Weight (Calculated Grams) 37082.5 [place] Body Weight 115 Weight Status Overweight GI Symptoms Food Allergies No Usual diet at home [place]: [facility] soft Skin Integrity/Comment: Fabrizio Santos. 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 Current %PO Good (75-100%) Estimated Nutritional Goals Calories/Kcals/Kg IBW 115lb/52.3kg Kcals Calculated 1308-1569kcal (25-30kcal/kg) Protein g/kg: IBW Protein Calculated 52g (1g/kg) Fluid: ml 1308-1569ml (1ml/kcal) Nutritional Problem 1. Problem Problem No nutritional problem at this time. Intervention/Recommendation Comments 1. Continue with current diet order. Avg PO intake is adequate. Expected Outcomes/Goals Expected Outcomes/Goals 1. PO intake continue to meet at least 75% of estimated nutritional needs.
[2016-09-18] MEDS: Levothyroxine 0.125 Mg Tab PO SCH (06:49)
[2016-09-18] MEDS: Multivitamin w/ Minerals Tab PO SCH (09:20)
--- NOTE | 2016-09-18 16:02 | Internal Medicine Prog Note ---
Internal Medicine Subjective - Subjective Patient seen and examined:: with staff, chart reviewed Patient is:: awake, verbal, interactive, ambulating, agitated, confused Per staff patient has:: no adverse event, no episodes of fall, poor oral intake , agitated Internal Medicine Objective - Results Result Diagrams: 08/30/16 14:15 08/30/16 14:15 Recent Labs: Laboratory Last Values WBC 8.1 Th/cmm (4.8-10.8) 08/30/16 14:15 RBC 4.32 Mil/cmm (3.80-5.20) 08/30/16 14:15 Hgb 12.2 gm/dL (11.7-16.1) 08/30/16 14:15 Hct 35.6 % (35.0-45.0) 08/30/16 14:15 MCV 82.4 fl (81-100) 08/30/16 14:15 MCH 28.2 pg (27.0-31.0) 08/30/16 14:15 MCHC Differential 34.2 pg (28.0-36.0) 08/30/16 14:15 RDW 13.5 % (11.5-20.0) 08/30/16 14:15 Plt Count 370 Th/cmm (150-400) D 08/30/16 14:15 MPV 6.7 fl 08/30/16 14:15 Neutrophils % 65.7 % (40.0-80.0) 08/30/16 14:15 Lymphocytes % 24.0 % (20.0-50.0) 08/30/16 14:15 Monocytes % 7.8 % (2.0-10.0) 08/30/16 14:15 Eosinophils % 1.7 % (0.0-5.0) 08/30/16 14:15 Basophils % 0.8 % (0.0-2.0) 08/30/16 14:15 Sodium 121 mEq/L (136-145) L 08/30/16 14:15 Potassium 4.3 mEq/L (3.5-5.1) 08/30/16 14:15 Chloride 91 mEq/L (98-107) L 08/30/16 14:15 Carbon Dioxide 26.2 mEq/L (21.0-31.0) 08/30/16 14:15 Anion Gap 8.1 (7.0-16.0) 08/30/16 14:15 BUN 8 mg/dL (7-25) 08/30/16 14:15 Creatinine 0.5 mg/dL (0.6-1.2) L 08/30/16 14:15 Est GFR ( Amer) TNP 08/30/16 14:15 Est GFR (Non-Af Amer) TNP 08/30/16 14:15 BUN/Creatinine Ratio 16.0 08/30/16 14:15 Glucose 153 mg/dL (70-105) H 08/30/16 14:15 Calcium 9.5 mg/dL (8.6-10.3) 08/30/16 14:15 Total Bilirubin 0.3 mg/dL (0.3-1.0) 08/30/16 14:15 GGTP 17 IU/L (0-60) 08/30/16 14:15 AST 21 U/L (13-39) 08/30/16 14:15 ALT 17 U/L (7-52) 08/30/16 14:15 Alkaline Phosphatase 89 U/L (34-104) 08/30/16 14:15 Total Protein 7.3 gm/dL (6.0-8.3) 08/30/16 14:15 Albumin 4.1 gm/dL (3.7-5.3) 08/30/16 14:15 Globulin 3.2 gm/dL 08/30/16 14:15 Albumin/Globulin Ratio 1.3 (1.0-1.8) 08/30/16 14:15 Lipase 22 U/L (11-82) 08/30/16 14:15 TSH 1.19 uIU/ml (0.34-5.60) 08/30/16 14:15 Urine Source CLEAN C 08/30/16 14:00 Urine Color YELLOW 08/30/16 14:00 Urine Clarity SLIGHT HAZY (CLEAR) 08/30/16 14:00 Urine pH 6.5 08/30/16 14:00 Ur Specific [place] 1.015 (1.005-1.030) 08/30/16 14:00 Urine Protein NEGATIVE mg/dL (NEGATIVE) 08/30/16 14:00 Urine Glucose (UA) NEGATIVE mg/dL (NEGATIVE) 08/30/16 14:00 Urine Ketones NEGATIVE mg/dL (NEGATIVE) 08/30/16 14:00 Urine Blood TRACE (NEGATIVE) 08/30/16 14:00 Urine Nitrate NEGATIVE (NEGATIVE) 08/30/16 14:00 Urine Bilirubin NEGATIVE (NEGATIVE) 08/30/16 14:00 Urine Urobilinogen 0.2 E.U./dL (0.2 - 1.0) 08/30/16 14:00 Ur Leukocyte Esterase LARGE (NEGATIVE) H 08/30/16 14:00 Urine RBC 2-5 /hpf (0-5) 08/30/16 14:00 Urine WBC 25-50 /hpf (0-5) H 08/30/16 14:00 Ur Epithelial Cells OCCASIONAL /lpf (FEW) 08/30/16 14:00 Urine Bacteria 1+ /hpf (NONE SEEN) H 08/30/16 14:00 Salicylates < 25.0 mg/L (30.0-100.0) L 08/30/16 14:15 Urine Opiates Screen NEGATIVE (NEGATIVE) 08/30/16 14:00 Urine Methadone Screen NEGATIVE (NEGATIVE) 08/30/16 14:00 Acetaminophen < 10.0 ug/mL (10.0-30.0) L 08/30/16 14:15 Ur Barbiturates Screen NEGATIVE (NEGATIVE) 08/30/16 14:00 Ur Tricyclics Screen NEGATIVE (NEGATIVE) 08/30/16 14:00 Ur Phencyclidine Scrn NEGATIVE (NEGATIVE) 08/30/16 14:00 Amphetamines Screen NEGATIVE (NEGATIVE) 08/30/16 14:00 U Methamphetamines Scrn NEGATIVE (NEGATIVE) 08/30/16 14:00 U Benzodiazepines Scrn NEGATIVE (NEGATIVE) 08/30/16 14:00 U Cocaine Metab Screen NEGATIVE (NEGATIVE) 08/30/16 14:00 U Cannabinoids Screen NEGATIVE (NEGATIVE) 08/30/16 14:00 Ethyl Alcohol < 10 mg/dL (0-10) 08/30/16 14:15 RPR NONREACTIVE (NONREACTIVE) 08/30/16 14:15 - Physical Exam Vitals and I&O: Vital Signs Temp 97 F 09/18/16 14:00 Pulse 84 09/18/16 14:00 Resp 20 09/18/16 14:00 BP 113/61 09/18/16 14:00 Pulse Ox 95 09/18/16 14:00 Intake & Output 09/17/16 09/18/16 09/18/16 18:59 06:59 18:59 Intake Total 120 Balance 120 Intake: Oral 120 Other: # Voids 3 Stool Characteristics Soft Soft Soft Formed Formed Formed Brown Active Medications: Current Medications Acetaminophen (Tylenol) 650 mg PO Q4H PRN PRN Reason: PAIN Stop: 10/29/16 23:25 Ascorbic Acid (Vitamin C) 500 mg PO DAILY NICOLE Stop: 10/30/16 08:59 Last Admin: 09/18/16 09:20 Dose: Not Given Atenolol (Tenormin) 25 mg PO DAILY NICOLE Stop: 10/30/16 08:59 Last Admin: 09/18/16 09:14 Dose: 25 mg Divalproex Sodium (Depakote Sprinkle) 500 mg PO Q12HR NICOLE PRN Reason: Protocol Stop: 11/14/16 20:59 Last Admin: 09/18/16 09:19 Dose: 250 mg Docusate Sodium (Colace) 100 mg PO BID NICOLE Stop: 10/30/16 08:59 Last Admin: 09/18/16 09:20 Dose: Not Given Escitalopram Oxalate (Lexapro) 10 mg PO DAILY NICOLE Stop: 11/14/16 08:59 Last Admin: 09/18/16 09:15 Dose: 10 mg Levothyroxine Sodium (Synthroid) 0.125 mg PO QDAC NICOLE Stop: 10/30/16 07:29 Last Admin: 09/18/16 06:49 Dose: 0.125 mg Lisinopril (Zestril) 20 mg PO DAILY NICOLE Stop: 10/30/16 08:59 Last Admin: 09/18/16 09:15 Dose: 20 mg Magnesium Hydroxide (Milk Of Magnesia) 30 ml PO DAILY PRN PRN Reason: Constipation Stop: 10/29/16 23:25 Olanzapine (Zyprexa) 30 mg PO DAILY NICOLE PRN Reason: Protocol Stop: 11/10/16 07:30 Last Admin: 09/18/16 09:14 Dose: 30 mg Sodium Chloride (Nacl Tab) 1 gm PO TID NICOLE Stop: 10/30/16 20:59 Last Admin: 09/18/16 09:20 Dose: Not Given General: demented, obese, NAD HEENT: NC/AT, PERRLA, poor dentition Neck: Supple, No JVD, No thyromegaly Lungs: CTAB Cardiovascular: RRR, Normal S1, Normal S2 Abdomen: soft, non-tender, globular, positive bowel sound Extremities: excoriation Neurological: no change, alert, disorganized - Procedures Procedures: Procedures Procedure Code Date APPENDECTOMY ADD-ON 67137 08/04/15 BYPASS TRANSVERSE COLON TO CUTANEOUS, OPEN APPROACH [id number] 08/04/15 COLOSTOMY 97446 08/04/15 EXCISION OF LARGE INTESTINE, OPEN APPROACH [id number] 08/04/15 GROUP PSYCHOTHERAPY 49267 07/31/15 GROUP PSYCHOTHERAPY GZHZZZZ 07/31/15 GROUP PSYCHOTHERAPY 54741 04/02/15 GROUP PSYCHOTHERAPY GZHZZZZ 04/02/15 OTHER GROUP THERAPY 94.44 11/07/14 PARTIAL REMOVAL OF COLON 27009 08/04/15 RECREATIONAL THERAPY 93.81 02/21/10 RESECTION OF APPENDIX, OPEN APPROACH [id number] 08/04/15 Internal Medicine Assmt/Plan - Assessment Assessment: Urinary tract infection, hyponatremia, hypertension, hypothyroidism, dementia, status post colostomy, rectal prolapse repair, and hernia repair. - Plan Plan: cont on antibiotic cont on nacl fall precaution monitor na level dw rn Nutritional Asmnt/Malnutr-PDOC - Dietary Evaluation Malnutrition Findings (Please click <Entered> for more info): Nutritional Asmnt/Malnutrition Start: 09/06/16 15: 04 Text: Status: Complete Freq: Document 09/06/16 15:04 UN (Rec: 09/06/16 15:21 [email or web address] [email or web address]) Nutritional Asmnt/Malnutrition Patient General Information Nutritional Screening Diagnosis Diagnosis UTI, major depression recurrent with psychosis, r/o schizoaffective disorde Pertinent Medical Hx/Surgical Hx Dementia, HTN, hypothyroidism, s/p colostomy secondary to hernia and rectal prolapse repair. Subjective Information 76 year old female. Visited pt during meal time, pt was eating in bed without difficulties, appeared easily irritable. Pt did not respond to RD questions and became combative when RD got near. Obtained CBW via bedscale. Observed lunch 100% consumed. Avg PO intake 100% since adm, meeting nutritional needs. Pt appeared overweight without significant wasting noted. Current Diet Order/ Nutrition Support [facility] chopped Pertinent Medications Vitamin C, Colace, Levaquin, Synthroid, MOM Pertinent Labs 08/30: glucose 153H (no DM noted in H&P) Nutritional Hx/Data Height 1.6 m Height (Calculated Centimeters) 160.0 Current Weight (lbs) 67.993 kg Weight (Calculated Kilograms) 68.0 Weight (Calculated Grams) 80183.5 [place] Body Weight 115 Weight Status Overweight GI Symptoms Food Allergies No Usual diet at home [place]: [facility] soft Skin Integrity/Comment: Fabrizio Santos. 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 Current %PO Good (75-100%) Estimated Nutritional Goals Calories/Kcals/Kg IBW 115lb/52.3kg Kcals Calculated 1308-1569kcal (25-30kcal/kg) Protein g/kg: IBW Protein Calculated 52g (1g/kg) Fluid: ml 1308-1569ml (1ml/kcal) Nutritional Problem 1. Problem Problem No nutritional problem at this time. Intervention/Recommendation Comments 1. Continue with current diet order. Avg PO intake is adequate. Expected Outcomes/Goals Expected Outcomes/Goals 1. PO intake continue to meet at least 75% of estimated nutritional needs.
[2016-09-19] MEDS: Levothyroxine 0.125 Mg Tab PO SCH (06:30)
[2016-09-19] MEDS: Multivitamin w/ Minerals Tab PO SCH (09:16)
--- NOTE | 2016-09-19 11:58 | Internal Medicine Prog Note ---
Internal Medicine Subjective - Subjective Service Date: 09/19/16 Patient seen and examined:: with staff Patient is:: awake Per staff patient has:: no adverse event Internal Medicine Objective - Results Result Diagrams: 08/30/16 14:15 08/30/16 14:15 Recent Labs: Laboratory Last Values WBC 8.1 Th/cmm (4.8-10.8) 08/30/16 14:15 RBC 4.32 Mil/cmm (3.80-5.20) 08/30/16 14:15 Hgb 12.2 gm/dL (11.7-16.1) 08/30/16 14:15 Hct 35.6 % (35.0-45.0) 08/30/16 14:15 MCV 82.4 fl (81-100) 08/30/16 14:15 MCH 28.2 pg (27.0-31.0) 08/30/16 14:15 MCHC Differential 34.2 pg (28.0-36.0) 08/30/16 14:15 RDW 13.5 % (11.5-20.0) 08/30/16 14:15 Plt Count 370 Th/cmm (150-400) D 08/30/16 14:15 MPV 6.7 fl 08/30/16 14:15 Neutrophils % 65.7 % (40.0-80.0) 08/30/16 14:15 Lymphocytes % 24.0 % (20.0-50.0) 08/30/16 14:15 Monocytes % 7.8 % (2.0-10.0) 08/30/16 14:15 Eosinophils % 1.7 % (0.0-5.0) 08/30/16 14:15 Basophils % 0.8 % (0.0-2.0) 08/30/16 14:15 Sodium 121 mEq/L (136-145) L 08/30/16 14:15 Potassium 4.3 mEq/L (3.5-5.1) 08/30/16 14:15 Chloride 91 mEq/L (98-107) L 08/30/16 14:15 Carbon Dioxide 26.2 mEq/L (21.0-31.0) 08/30/16 14:15 Anion Gap 8.1 (7.0-16.0) 08/30/16 14:15 BUN 8 mg/dL (7-25) 08/30/16 14:15 Creatinine 0.5 mg/dL (0.6-1.2) L 08/30/16 14:15 Est GFR ( Amer) TNP 08/30/16 14:15 Est GFR (Non-Af Amer) TNP 08/30/16 14:15 BUN/Creatinine Ratio 16.0 08/30/16 14:15 Glucose 153 mg/dL (70-105) H 08/30/16 14:15 Calcium 9.5 mg/dL (8.6-10.3) 08/30/16 14:15 Total Bilirubin 0.3 mg/dL (0.3-1.0) 08/30/16 14:15 GGTP 17 IU/L (0-60) 08/30/16 14:15 AST 21 U/L (13-39) 08/30/16 14:15 ALT 17 U/L (7-52) 08/30/16 14:15 Alkaline Phosphatase 89 U/L (34-104) 08/30/16 14:15 Total Protein 7.3 gm/dL (6.0-8.3) 08/30/16 14:15 Albumin 4.1 gm/dL (3.7-5.3) 08/30/16 14:15 Globulin 3.2 gm/dL 08/30/16 14:15 Albumin/Globulin Ratio 1.3 (1.0-1.8) 08/30/16 14:15 Lipase 22 U/L (11-82) 08/30/16 14:15 TSH 1.19 uIU/ml (0.34-5.60) 08/30/16 14:15 Urine Source CLEAN C 08/30/16 14:00 Urine Color YELLOW 08/30/16 14:00 Urine Clarity SLIGHT HAZY (CLEAR) 08/30/16 14:00 Urine pH 6.5 08/30/16 14:00 Ur Specific [place] 1.015 (1.005-1.030) 08/30/16 14:00 Urine Protein NEGATIVE mg/dL (NEGATIVE) 08/30/16 14:00 Urine Glucose (UA) NEGATIVE mg/dL (NEGATIVE) 08/30/16 14:00 Urine Ketones NEGATIVE mg/dL (NEGATIVE) 08/30/16 14:00 Urine Blood TRACE (NEGATIVE) 08/30/16 14:00 Urine Nitrate NEGATIVE (NEGATIVE) 08/30/16 14:00 Urine Bilirubin NEGATIVE (NEGATIVE) 08/30/16 14:00 Urine Urobilinogen 0.2 E.U./dL (0.2 - 1.0) 08/30/16 14:00 Ur Leukocyte Esterase LARGE (NEGATIVE) H 08/30/16 14:00 Urine RBC 2-5 /hpf (0-5) 08/30/16 14:00 Urine WBC 25-50 /hpf (0-5) H 08/30/16 14:00 Ur Epithelial Cells OCCASIONAL /lpf (FEW) 08/30/16 14:00 Urine Bacteria 1+ /hpf (NONE SEEN) H 08/30/16 14:00 Salicylates < 25.0 mg/L (30.0-100.0) L 08/30/16 14:15 Urine Opiates Screen NEGATIVE (NEGATIVE) 08/30/16 14:00 Urine Methadone Screen NEGATIVE (NEGATIVE) 08/30/16 14:00 Acetaminophen < 10.0 ug/mL (10.0-30.0) L 08/30/16 14:15 Ur Barbiturates Screen NEGATIVE (NEGATIVE) 08/30/16 14:00 Ur Tricyclics Screen NEGATIVE (NEGATIVE) 08/30/16 14:00 Ur Phencyclidine Scrn NEGATIVE (NEGATIVE) 08/30/16 14:00 Amphetamines Screen NEGATIVE (NEGATIVE) 08/30/16 14:00 U Methamphetamines Scrn NEGATIVE (NEGATIVE) 08/30/16 14:00 U Benzodiazepines Scrn NEGATIVE (NEGATIVE) 08/30/16 14:00 U Cocaine Metab Screen NEGATIVE (NEGATIVE) 08/30/16 14:00 U Cannabinoids Screen NEGATIVE (NEGATIVE) 08/30/16 14:00 Ethyl Alcohol < 10 mg/dL (0-10) 08/30/16 14:15 RPR NONREACTIVE (NONREACTIVE) 08/30/16 14:15 - Physical Exam Vitals and I&O: Vital Signs Temp 98.2 F 09/19/16 06:19 Pulse 71 09/19/16 09:18 Resp 18 09/19/16 06:19 BP 129/68 09/19/16 09:18 Pulse Ox 95 09/19/16 06:19 Intake & Output 07/05/0609/19/16 09/19/16 18:59 06:59 18:59 Intake Total 240 Balance 240 Intake: Oral 240 Other: # Voids 1 # Bowel Movements 2 Stool Characteristics Soft Formed Formed Brown Active Medications: Current Medications Acetaminophen (Tylenol) 650 mg PO Q4H PRN PRN Reason: PAIN Stop: 10/29/16 23:25 Ascorbic Acid (Vitamin C) 500 mg PO DAILY [facility] Stop: 10/30/16 08:59 Last Admin: 09/19/16 09:16 Dose: 500 mg Atenolol (Tenormin) 25 mg PO DAILY NICOLE Stop: 10/30/16 08:59 Last Admin: 09/19/16 09:16 Dose: 25 mg Divalproex Sodium (Depakote Sprinkle) 500 mg PO Q12HR NICOLE PRN Reason: Protocol Stop: 11/14/16 20:59 Last Admin: 09/19/16 09:14 Dose: 500 mg Docusate Sodium (Colace) 100 mg PO BID NICOLE Stop: 10/30/16 08:59 Last Admin: 09/19/16 09:16 Dose: 100 mg Escitalopram Oxalate (Lexapro) 10 mg PO DAILY NICOLE Stop: 11/14/16 08:59 Last Admin: 09/19/16 09:15 Dose: 10 mg Levothyroxine Sodium (Synthroid) 0.125 mg PO QDAC [facility] Stop: 10/30/16 07:29 Last Admin: 09/19/16 06:30 Dose: 0.125 mg Lisinopril (Zestril) 20 mg PO DAILY [facility] Stop: 10/30/16 08:59 Last Admin: 09/19/16 09:18 Dose: 20 mg Magnesium Hydroxide (Milk Of Magnesia) 30 ml PO DAILY PRN PRN Reason: Constipation Stop: 10/29/16 23:25 Olanzapine (Zyprexa) 30 mg PO DAILY NICOLE PRN Reason: Protocol Stop: 11/10/16 07:30 Last Admin: 09/19/16 09:14 Dose: 30 mg Sodium Chloride (Nacl Tab) 1 gm PO TID [facility] Stop: 10/30/16 20:59 Last Admin: 09/19/16 09:16 Dose: 1 gm General: alert HEENT: NC/AT, PERRLA Neck: Supple Lungs: CTAB Abdomen: soft, non-tender, non-distended, positive bowel sound Neurological: no change - Procedures Procedures: Procedures Procedure Code Date APPENDECTOMY ADD-ON 15836 08/04/15 BYPASS TRANSVERSE COLON TO CUTANEOUS, OPEN APPROACH [id number] 08/04/15 COLOSTOMY 78768 08/04/15 EXCISION OF LARGE INTESTINE, OPEN APPROACH [id number] 08/04/15 GROUP PSYCHOTHERAPY 41879 07/31/15 GROUP PSYCHOTHERAPY GZHZZZZ 07/31/15 GROUP PSYCHOTHERAPY 75713 04/02/15 GROUP PSYCHOTHERAPY GZHZZZZ 04/02/15 OTHER GROUP THERAPY 94.44 11/07/14 PARTIAL REMOVAL OF COLON 70543 08/04/15 RECREATIONAL THERAPY 93.81 02/21/10 RESECTION OF APPENDIX, OPEN APPROACH [id number] 08/04/15 Internal Medicine Assmt/Plan - Assessment Assessment: Urinary tract infection hyponatremia hypertension hypothyroidism dementia status post colostomy rectal prolapse repair hernia repai. - Plan Plan: encourage fluids cpm Nutritional Asmnt/Malnutr-PDOC - Dietary Evaluation Malnutrition Findings (Please click <Entered> for more info): Nutritional Asmnt/Malnutrition Start: 09/06/16 15: 04 Text: Status: Complete Freq: Document 09/06/16 15:04 GSUN (Rec: 09/06/16 15:21 [email or web address] [email or web address]) Nutritional Asmnt/Malnutrition Patient General Information Nutritional Screening Diagnosis Diagnosis UTI, major depression recurrent with psychosis, r/o schizoaffective disorde Pertinent Medical Hx/Surgical Hx Dementia, HTN, hypothyroidism, s/p colostomy secondary to hernia and rectal prolapse repair. Subjective Information 76 year old female. Visited pt during meal time, pt was eating in bed without difficulties, appeared easily irritable. Pt did not respond to RD questions and became combative when RD got near. Obtained CBW via bedscale. Observed lunch 100% consumed. Avg PO intake 100% since adm, meeting nutritional needs. Pt appeared overweight without significant wasting noted. Current Diet Order/ Nutrition Support [facility] chopped Pertinent Medications Vitamin C, Colace, Levaquin, Synthroid, MOM Pertinent Labs 08/30: glucose 153H (no DM noted in H&P) Nutritional Hx/Data Height 5 ft 3 in Height (Calculated Centimeters) 160.0 Current Weight (lbs) 149 lb 14.4 oz Weight (Calculated Kilograms) 68.0 Weight (Calculated Grams) 88341.5 [place] Body Weight 115 Weight Status Overweight GI Symptoms Food Allergies No Usual diet at home [place]: [facility] soft Skin Integrity/Comment: Fabrizio Santos. 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 Current %PO Good (75-100%) Estimated Nutritional Goals Calories/Kcals/Kg IBW 115lb/52.3kg Kcals Calculated 1308-1569kcal (25-30kcal/kg) Protein g/kg: IBW Protein Calculated 52g (1g/kg) Fluid: ml 1308-1569ml (1ml/kcal) Nutritional Problem 1. Problem Problem No nutritional problem at this time. Intervention/Recommendation Comments 1. Continue with current diet order. Avg PO intake is adequate. Expected Outcomes/Goals Expected Outcomes/Goals 1. PO intake continue to meet at least 75% of estimated nutritional needs.
== END 2016-09-19 20:35 | disposition home or self-care (01) | DRG 885 ==
LOC: ER 13:55 → GERO 17:41
PROVIDERS: ADMIT Psychiatry & Neurology Psychiatry; ATTEND Psychiatry & Neurology Psychiatry
DX: F33.3 Major depressive disorder, recurrent, severe with psychotic symptoms (principal); F03.90 Unspecified dementia, unspecified severity, without behavioral disturbance, psychotic disturbance, mood disturbance, and anxiety; E87.1 Hypo-osmolality and hyponatremia; I11.0 Hypertensive heart disease with heart failure; I50.9 Heart failure, unspecified; N39.0 Urinary tract infection, site not specified; E03.9 Hypothyroidism, unspecified; I25.10 Atherosclerotic heart disease of native coronary artery without angina pectoris; R26.9 Unspecified abnormalities of gait and mobility; K21.9 Gastro-esophageal reflux disease without esophagitis; F17.210 Nicotine dependence, cigarettes, uncomplicated; K59.00 Constipation, unspecified; Z91.14 Patient's other noncompliance with medication regimen; Z93.3 Colostomy status
CPT/HCPCS: 36415-UA; 80053-TC; 80307; 80320-TC; 80329-TC; 81001-TC; 82977-90; 83690-TC; 84443-TC; 85025-TC; 86592-TC; 87086-90; 90899; 96374; G0410; J0696; J1200; J1630; J2060; J7051; Z7610

== ENCOUNTER 2017-09-14 19:00 | Inpatient (IN) | payer MEDICARE, MEDICAID ==
--- NOTE | 2017-09-14 19:10 | ED Physician Chart ---
ED Chief Complaint/HPI - Patient Information Date Seen:: 09/14/17 Time Seen:: 19:00 Chief Complaint:: impulse disorder History of Present Illness:: She has apparently been taking her clothes off in public and probably urinating in public at her shelter facility. She may also according to the EMT been trying to drink her own urine. She has also been combative with other residents at her shelter facility again according to the EMT. Allergies:: Allergies Allergy/AdvReac Type Severity Reaction Status Date / Time No Known Allergies Allergy Unverified 08/25/15 15:20 Review:: Transfer documents Reviewed ED Review of Systems - Review of Systems General/Constitutional: No fever, No chills, No weight loss, No weakness, No diaphoresis, No edema, No loss of appetite Skin: No skin lesions, No rash, No bruising Head: No headache, No light-headedness Eyes: No loss of vision, No pain, No diplopia ENT: No earache, No nasal drainage, No sore throat, No tinnitus Neck: No neck pain, No swelling, No thyromegaly, No stiffness, No mass noted Cardio Vascular: No chest pain, No palpitations, No PND, No orthopnea, No edema Pulmonary: No SOB, No cough, No sputum, No wheezing GI: No nausea, No vomiting, No diarrhea, No pain, No melena, No hematochezia, No constipation, No hematemesis G/U: No dysuria, No frequency, No hematuria Musculoskeletal: No bone or joint pain, No back pain, No muscle pain Endocrine: No polyuria, No polydipsia Psychiatric: Prior psych history Hematopoietic: No bruising, No lymphadenopathy Allergic/Immuno: No urticaria, No angioedema Neurological: No syncope, No focal symptoms, No weakness, No paresthesia, No headache, No seizure, No dizziness, No confusion, No vertigo ED Past Medical History - Past Medical History Past Medical History: HTN, Thyroid disorder, Other (cardiomegaly; hypothyroidism ; rectal prolapse; female genital prolapse; hyponatremia; schizophrenia; ptosis) Family History: Other ( unavailable) Social History: Care Facility Surgical History: other (colostomy) Psychiatricy History: Schizophrenia Medication: Reviewed Family Medical History - Family Member Mother History Unknown: Yes Ethnicity: Unknown Living Status: Unknown ED Physical Exam - Physical Examination General/Constitutional: Awake, Well-developed, well-nourished, Alert Other Gen/Cons comments:: Patient's speech is incomprehensible Head: Atraumatic Eyes: Lids, conjuctiva normal, PERRL Skin: Nl inspection, No rash ENMT: External ears, nose nl Other ENMT comments:: Edentulous Neck: No nuchal rigidity Other Respiratory comments:: 1.5 out of 4 bibasal rales Cardio Vascular: RRR, No murmur, gallop, rubs, NL S1 S2 GI: No tenderness/rebounding/guarding Other GI comments:: Colostomy noted : No CVA tenderness Extremities: No tenderness or effusion Neuro/Psych: No focal deficits ED Labs/Radiology/EKG Results - EKG Interpretations Rate & Rhythm: normal sinus rhythm with a rate of 80 [place]: normal ED Assessment - Assessment General Assessment: Patient urinated on the floor while in the emergency department; chest x-ray was done because patient had a pulse ox of only 94%. Patient apparently does not smoke cigarettes as she nodded her head when asked. ED Septic Shock - . Is Septic Shock (SBP<90, OR Lactate>4 mmol\L) present?: No ED Reassessment (Disposition) - Diagnosis Diagnosis:: Lack of impulse control; schizophrenia - Aftercare/Follow up Instructions Aftercare/Follow-Up Instructions:: Refer to Discharge Instructions - Patient Disposition Admitted to:: [facility] Admitting Medical Physician:: Abe Sales Admitting Psych Physician:: Areli Kaufman Condition at Disposition:: Stable, Unchanged
[2017-09-14 19:25] LABS: % EOSINOPHILS 0.9 % (0.0-5.0); % LYMPHOCYTES 37.3 % (20.0-50.0); % MONOCYTES 8.9 % (2.0-10.0); % NEUTROPHILS 51.9 % (40.0-80.0); BASOPHILE ABSOLUTE 0.1 Th/cumm (0-0.2); EOSINOPHILE ABSOLUTE 0.1 Th/cmm (0.1-0.4); HEMATOCRIT 36.5 % (41.0-60); HEMOGLOBIN 12.3 gm/dL (12-16); LYMPHOCYTE ABSOLUTE 2.5 Th/cmm (1.5-3.0); MEAN CELL VOLUME 85.5 fl (81-100); MEAN CORPUSCULAR HEMOGLOBIN 28.9 pg (27.0-31.0); MEAN CORPUSCULAR HGB CONC 33.8 pg (28.0-36.0); MONOCYTE ABSOLUTE 0.6 Th/cmm (0.3-1.0); NEUTROPHILE ABSOLUTE 3.3 Th/cmm (1.8-8.0); PLATELET COUNT 295 Th/cmm (150-400); RED BLOOD COUNT 4.27 Mil/cmm (3.80-5.20); RED CELL DISTRIBUTION WIDTH 12.3 % (11.5-20.0); WHITE BLOOD COUNT 6.6 Th/cmm (4.8-10.8)
[2017-09-14 19:34] LABS: URINE MICROSCOPIC INDICATED? YES; URINE SOURCE CLEAN C
[2017-09-14 19:35] LABS: URINE BILIRUBIN NEGATIVE (NEGATIVE); URINE BLOOD NEGATIVE (NEGATIVE); URINE GLUCOSE (UA) NEGATIVE (NEGATIVE); URINE KETONE NEGATIVE (NEGATIVE); URINE LEUKOCYTE ESTERASE TRACE (NEGATIVE); URINE NITRATE NEGATIVE (NEGATIVE); URINE PH 5.5 (4.6 - 8.0); URINE PROTEIN NEGATIVE (NEGATIVE); URINE UROBILINOGEN 0.2 E.U./dL (0.2 - 1.0)
[2017-09-14 19:41] LABS: ALB/GLOB RATIO 1.2 (1.0-1.8); ALBUMIN 4.4 gm/dL (3.7-5.3); ALKALINE PHOSPHATASE 94 U/L (34-104); ANION GAP 12.7 (7.0-16.0); BILIRUBIN,TOTAL 0.4 mg/dL (0.3-1.0); BUN - UREA NITROGEN 8 mg/dL (7-25); CALCIUM SERUM 9.7 mg/dL (8.6-10.3); CARBON DIOXIDE 24.2 mEq/L (21.0-31.0); CHLORIDE 91 mEq/L (98-107); CHOLESTEROL 232 mg/dL (<200); CREATININE - SERUM 0.5 mg/dL (0.6-1.2); GLUCOSE 106 mg/dL (70-105); HDL -HIGH DENSITY LIPOPROTEIN 52 mg/dL (23-92); POTASSIUM SERUM 3.9 mEq/L (3.5-5.1); SGOT 16 U/L (13-39); SGPT/ALT 11 U/L (7-52); SODIUM SERUM 124 mEq/L (136-145); TOTAL PROTEIN,SERUM 8.1 gm/dL (6.0-8.3); TRIGLYCERIDES 267 mg/dL (<150)
[2017-09-14 19:48] LABS: URINE CLARITY CLEAR (CLEAR); URINE COLOR YELLOW
[2017-09-14 19:49] LABS: URINE BACTERIA NONE SEEN /hpf (NONE SEEN); URINE EPITHELIAL CELLS OCCASIONAL /lpf (FEW); URINE RBC 0-2 /hpf (0-5); URINE WBC 0-2 /hpf (0-5)
[2017-09-14 20:21] LABS: A1C % 5.8 % (4.0-6.0)
[2017-09-14] MEDS ORDERED: Magnesium Hydroxide (MOM) 30 mL UDC PO PRN (22:41)
[2017-09-14 22:55] VITALS: BP 151/75
[2017-09-15] MEDS: Levothyroxine 0.125 Mg Tab PO SCH (06:36)
--- NOTE | 2017-09-15 08:16 | Diagnostic Imaging Report ---
CHEST X-RAY: AP view INDICATION: Hypoxia COMPARISON: 08/05/2015 FINDINGS: Chronic lung changes are seen with mild increased left basal lung markings. No focal consolidation definite effusions. Mild cardiomegaly is noted with atherosclerosis. Degenerative changes of the spine are noted. IMPRESSION: Chronic lung changes and mild increased left basal lung markings which may be due to superimposition of soft tissues. Atelectasis versus infiltrate is less likely but cannot be completely excluded. Please correlate clinically. Mild cardiomegaly with atherosclerosis.
[2017-09-15] MEDS: Potassium Chloride 20 mEq ER Tab PO SCH (08:51)
[2017-09-15] MEDS ORDERED: Non-Formulary Item 1 EA (Cranberry Fruit Concentrate [Cranberry] 450 MG) PO SCH (09:00)
--- NOTE | 2017-09-15 12:27 | History & Physical ---
ADMIT DATE: 09/14/2017 CHIEF COMPLAINT: Agitated behaviour. HISTORY OF PRESENT ILLNESS: This is a 77-year-old female well known to my service with a history of ____ the patient with colostomy, dementia, obesity, hypertension, hypothyroidism, admitted from nursing facility secondary to above behavior. The patient is a poor historian, difficult to understand. Denies chest pain or shortness of breath. PAST MEDICAL HISTORY: As mentioned in history present illness. PAST SURGICAL HISTORY: Post-colostomy. ALLERGIES: No known drug allergies. MEDICATIONS: Cranberry, Colace, Synthroid, lisinopril, metoprolol, Zyprexa, potassium, and sodium chloride. FAMILY HISTORY: Noncontributory. SOCIAL HISTORY: The patient is a long term patient requiring 24-hour total care. REVIEW OF SYSTEMS: This is limited secondary to pain and comatose state. We will try to obtain more detailed review of system at a later by talking to family members, ____ [phone]. We will also try to get information from nursing staff at [facility], at [phone]. PHYSICAL EXAMINATION: VITAL SIGNS: Blood pressure 130/75, respirations 20, pulse 76, temperature 97.5. GENERAL: Elderly female, morbidly obese. NECK: Supple. No mass. LUNGS: Equal breath sounds, few rhonchi. HEART: Regular rate and rhythm without appreciable murmur. ABDOMEN: Soft, globular. EXTREMITIES: Positive excoriation. NEUROLOGIC: Limited, moving 4 extremities. The patient with colostomy. LABORATORY DATA: WBC 6, hematocrit 36. Sodium 124, potassium 3.8, BUN 8, creatinine 0.5. Blood sugar 106, cholesterol 232, triglyceride 267. ASSESSMENT AND PLAN: 1. Hypertension. 2. Hypothyroidism. 3. Diverting colostomy. 4. Dementia. 5. Obesity. 6. Anemia. 7. Hyponatremia. 8. Hyperglycemia. PLAN: We will continue on beta leah as well as ____ medication. We will add statin. Continue Synthroid. Continue with current care. Continue with colostomy care. We will continue to monitor the patient closely. JOB# [id number]
--- NOTE | 2017-09-15 14:05 | Psychiatric Evaluation ---
DATE OF SERVICE: 09/14/2017 IDENTIFYING INFORMATION: The patient is a 77-year-old female. CHIEF COMPLAINT: No answer. HISTORY OF PRESENT ILLNESS: The patient at [facility] because the patient has been agitated, walking naked in the hallway, urinating in the office, hard to redirect, unpredictable and impulsive. The patient unable to express herself, easily agitated, irritable. The patient is a well-known case to me as I have been seeing her for years at [facility] with multiple prior admissions to this facility. PAST PSYCHIATRIC HISTORY: Multiple prior admissions to this facility for schizoaffective disorder. The patient is a poor historian, unable to give much information with multiple prior admissions because of agitation, psychotic behavior, rambling speech, responding to internal stimuli. MEDICAL HISTORY: Deferred to the medical doctor. 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 She had a history of hypertension, thyromegaly, hypothyroidism, rectal prolapse and uterine prolapse, hyponatremia, ____. She has a colostomy bag. ALLERGIES: The patient has no known drug allergy. CURRENT MEDICATIONS: Includes atorvastatin 20 mg daily, levothyroxine 0.125 mg daily, lisinopril 20 mg daily, metoprolol 25 mg daily, Zyprexa 10 mg daily, potassium chloride 10 mEq daily and sodium chloride 1 gram three times a day. FAMILY AND SOCIAL HISTORY: The patient has been staying at [facility]. No family is involved. Denies family history of psychiatric disorder; however, she is a poor historian. MENTAL STATUS EXAMINATION: The patient is appropriately dressed, not well groomed. She was alert; however, she was unable to tell me the date, where she is, why she is here. She was rambling, unable to express herself. Her long and short term memory is poor because of her psychosis, ____ she was walking naked inappropriate, urinating on the floor in the office of the detention. Her insight and judgment is impaired. IMPRESSION: AXIS I: Schizoaffective disorder. MEDICAL DIAGNOSES: Hypertension, hyperlipidemia, hypothyroidism, colostomy bag and prolapsed rectum, bladder and uterus. Her assets, she wants to get help. Negative poor coping skills. INITIAL TREATMENT PLAN: The patient will continue with the olanzapine. We will do group therapy, milieu therapy, and individual therapy. ESTIMATED LENGTH OF STAY: 3-7 days. DISCHARGE CRITERIA: Decreased psychosis, agitation. After discharge, ____. [facility]# [id number]
[2017-09-15] MEDS: Atorvastatin Calcium 10 MG TAB PO SCH (14:08)
[2017-09-16] MEDS: Levothyroxine 0.125 Mg Tab PO SCH (06:57)
[2017-09-16] MEDS: Atorvastatin Calcium 10 MG TAB PO SCH (08:36)
[2017-09-16] MEDS: Potassium Chloride 20 mEq ER Tab PO SCH (08:36)
--- NOTE | 2017-09-16 13:07 | Internal Medicine Prog Note ---
Internal Medicine Subjective - Subjective Service Date: 09/16/17 Patient seen and examined:: with staff Patient is:: awake, verbal, agitated Per staff patient has:: tolerating meds Internal Medicine Objective - Results Result Diagrams: 09/14/17 19:15 09/14/17 19:15 Recent Labs: Laboratory Last Values WBC 6.6 Th/cmm (4.8-10.8) 09/14/17 19:15 RBC 4.27 Mil/cmm (3.80-5.20) 09/14/17 19:15 Hgb 12.3 gm/dL (12-16) 09/14/17 19:15 Hct 36.5 % (41.0-60) L 09/14/17 19:15 MCV 85.5 fl (81-100) 09/14/17 19:15 MCH 28.9 pg (27.0-31.0) 09/14/17 19:15 MCHC Differential 33.8 pg (28.0-36.0) 09/14/17 19:15 RDW 12.3 % (11.5-20.0) 09/14/17 19:15 Plt Count 295 Th/cmm (150-400) 09/14/17 19:15 MPV 7.0 fl 09/14/17 19:15 Neutrophils % 51.9 % (40.0-80.0) 09/14/17 19:15 Lymphocytes % 37.3 % (20.0-50.0) 09/14/17 19:15 Monocytes % 8.9 % (2.0-10.0) 09/14/17 19:15 Eosinophils % 0.9 % (0.0-5.0) 09/14/17 19:15 Basophils % 1.0 % (0.0-2.0) 09/14/17 19:15 Sodium 124 mEq/L (136-145) L 09/14/17 19:15 Potassium 3.9 mEq/L (3.5-5.1) 09/14/17 19:15 Chloride 91 mEq/L (98-107) L 09/14/17 19:15 Carbon Dioxide 24.2 mEq/L (21.0-31.0) 09/14/17 19:15 Anion Gap 12.7 (7.0-16.0) 09/14/17 19:15 BUN 8 mg/dL (7-25) 09/14/17 19:15 Creatinine 0.5 mg/dL (0.6-1.2) L 09/14/17 19:15 Est GFR ( Amer) TNP 09/14/17 19:15 Est GFR (Non-Af Amer) TNP 09/14/17 19:15 BUN/Creatinine Ratio 16.0 09/14/17 19:15 Glucose 106 mg/dL (70-105) H 09/14/17 19:15 Hemoglobin A1c % 5.8 % (4.0-6.0) 09/14/17 19:15 Calcium 9.7 mg/dL (8.6-10.3) 09/14/17 19:15 Total Bilirubin 0.4 mg/dL (0.3-1.0) 09/14/17 19:15 AST 16 U/L (13-39) 09/14/17 19:15 ALT 11 U/L (7-52) 09/14/17 19:15 Alkaline Phosphatase 94 U/L (34-104) 09/14/17 19:15 Total Protein 8.1 gm/dL (6.0-8.3) 09/14/17 19:15 Albumin 4.4 gm/dL (3.7-5.3) 09/14/17 19:15 Globulin 3.7 gm/dL 09/14/17 19:15 Albumin/Globulin Ratio 1.2 (1.0-1.8) 09/14/17 19:15 Triglycerides 267 mg/dL (<150) H 09/14/17 19:15 Cholesterol 232 mg/dL (<200) H 09/14/17 19:15 LDL Cholesterol Direct 154 mg/dL (75-193) 09/14/17 19:15 HDL Cholesterol 52 mg/dL (23-92) 09/14/17 19:15 TSH 0.80 uIU/ml (0.34-5.60) 09/14/17 19:15 Urine Source CLEAN C 09/14/17 19:20 Urine Color YELLOW 09/14/17 19:20 Urine Clarity CLEAR (CLEAR) 09/14/17 19:20 Urine pH 5.5 (4.6 - 8.0) 09/14/17 19:20 Ur Specific [place] <= 1.005 (1.005-1.030) 09/14/17 19:20 Urine Protein NEGATIVE mg/dL (NEGATIVE) 09/14/17 19:20 Urine Glucose (UA) NEGATIVE mg/dL (NEGATIVE) 09/14/17 19:20 Urine Ketones NEGATIVE mg/dL (NEGATIVE) 09/14/17 19:20 Urine Blood NEGATIVE (NEGATIVE) 09/14/17 19:20 Urine Nitrate NEGATIVE (NEGATIVE) 09/14/17 19:20 Urine Bilirubin NEGATIVE (NEGATIVE) 09/14/17 19:20 Urine Urobilinogen 0.2 E.U./dL (0.2 - 1.0) 09/14/17 19:20 Ur Leukocyte Esterase TRACE (NEGATIVE) H 09/14/17 19:20 Urine RBC 0-2 /hpf (0-5) 09/14/17 19:20 Urine WBC 0-2 /hpf (0-5) 09/14/17 19:20 Ur Epithelial Cells OCCASIONAL /lpf (FEW) 09/14/17 19:20 Urine Bacteria NONE SEEN /hpf (NONE SEEN) 09/14/17 19:20 RPR NONREACTIVE (NONREACTIVE) 09/14/17 19:15 - Physical Exam Vitals and I&O: Vital Signs Temp 98 F 09/16/17 06:53 Pulse 95 09/16/17 08:37 Resp 20 09/16/17 06:53 BP 126/75 09/16/17 08:37 Pulse Ox 96 09/16/17 06:53 Intake & Output 09/15/17 09/16/17 09/16/17 18:59 06:59 18:59 Intake Total 1200 480 Balance 1200 480 Weight (lbs) 149 lb Intake: Oral 1200 480 Other: # Voids 3 2 Stool Characteristics Liquid Liquid Liquid Brown Active Medications: Current Medications Acetaminophen (Tylenol) 650 mg PO Q4HR PRN PRN Reason: Pain or Fever >101 Stop: 11/13/17 22:40 Atorvastatin Calcium (Lipitor) 20 mg PO DAILY [facility]; Protocol Stop: 11/14/17 12:44 Last Admin: 09/16/17 08:36 Dose: 20 mg Docusate Sodium (Colace) 100 mg PO BID [facility] Stop: 11/14/17 08:59 Last Admin: 09/16/17 08:36 Dose: 100 mg Levothyroxine Sodium (Synthroid) 0.125 mg PO QDAC [facility] Stop: 11/14/17 07:29 Last Admin: 09/16/17 06:57 Dose: Not Given Lisinopril (Zestril) 20 mg PO DAILY [facility] Stop: 11/14/17 08:59 Last Admin: 09/16/17 08:37 Dose: 20 mg Lorazepam (Ativan) 0.5 mg PO Q4HR PRN; Protocol PRN Reason: Anxiety Stop: 10/14/17 22:44 Last Admin: 09/15/17 20:23 Dose: 0.5 mg Magnesium Hydroxide (Milk Of Magnesia) 30 ml PO HS PRN PRN Reason: Constipation Stop: 11/13/17 22:40 Metoprolol Tartrate (Lopressor) 25 mg PO DAILY [facility] Stop: 11/14/17 08:59 Last Admin: 09/16/17 08:36 Dose: 25 mg Olanzapine (Zyprexa) 20 mg PO DAILY [facility]; Protocol Stop: 11/14/17 08:59 Last Admin: 09/16/17 08:36 Dose: 20 mg Potassium Chloride (Klor-Con) 20 meq PO DAILY [facility] Stop: 11/14/17 08:59 Last Admin: 09/16/17 08:36 Dose: 20 meq Sodium Chloride (Nacl Tab) 1 gm PO TID [facility] Stop: 11/14/17 08:59 Last Admin: 09/16/17 08:36 Dose: 1 gm Zolpidem Tartrate (Ambien) 5 mg PO HS PRN PRN Reason: Insomnia Stop: 11/13/17 22:44 Last Admin: 09/15/17 20:23 Dose: 5 mg General: alert HEENT: NC/AT, PERRLA Neck: Supple Lungs: CTAB Cardiovascular: RRR, Normal S1, Normal S2, without murmur Abdomen: soft, non-tender, non-distended, positive bowel sound Extremities: excoriation Neurological: alert - Procedures Procedures: Procedures Procedure Code Date APPENDECTOMY ADD-ON 60155 08/04/15 BYPASS TRANSVERSE COLON TO CUTANEOUS, OPEN APPROACH [id number] 08/04/15 COLOSTOMY 11549 08/04/15 EXCISION OF LARGE INTESTINE, OPEN APPROACH [id number] 08/04/15 GROUP PSYCHOTHERAPY 61299 07/31/15 GROUP PSYCHOTHERAPY GZHZZZZ 07/31/15 GROUP PSYCHOTHERAPY 38637 04/02/15 GROUP PSYCHOTHERAPY GZHZZZZ 04/02/15 OTHER GROUP THERAPY 94.44 11/07/14 PARTIAL REMOVAL OF COLON 95827 08/04/15 RECREATIONAL THERAPY 93.81 02/21/10 RESECTION OF APPENDIX, OPEN APPROACH [id number] 08/04/15 Internal Medicine Assmt/Plan - Assessment Assessment: htn hypothyroidism diverting colostomy dmenetia obesity anemia hyponatremia hyperglycemia - Plan Plan: f/u potassium level fall precautions continue current plan of care
--- NOTE | 2017-09-16 18:29 | Progress Notes ---
DATE: 09/16/2017 Case was discussed with staff of the patient, reviewed records. The patient continues to be unpredictable, impulsive, continues with redirection, psychotic, rambling speech, looking disheveled, disorganized, internally preoccupied, hard to redirect, acting inappropriately. She was urinating in the office at [place]. Continues to have poor insight. No side effects to the medication, no sedation, no nausea, no extrapyramidal symptoms and we will continue to ____ the patient in group therapy, milieu therapy, and adjust medication as needed. JOB# [id number]
[2017-09-17] MEDS: Levothyroxine 0.125 Mg Tab PO SCH (06:48)
[2017-09-17 07:45] LABS: % BASOPHILS 1.4 % (0.0-2.0); % EOSINOPHILS 2.5 % (0.0-5.0); % LYMPHOCYTES 38.6 % (20.0-50.0); % MONOCYTES 10.2 % (2.0-10.0); % NEUTROPHILS 47.3 % (40.0-80.0); BASOPHILE ABSOLUTE 0.1 Th/cumm (0-0.2); EOSINOPHILE ABSOLUTE 0.1 Th/cmm (0.1-0.4); HEMATOCRIT 35.1 % (41.0-60); HEMOGLOBIN 12.1 gm/dL (12-16); LYMPHOCYTE ABSOLUTE 1.7 Th/cmm (1.5-3.0); MEAN CELL VOLUME 85.3 fl (81-100); MEAN CORPUSCULAR HEMOGLOBIN 29.5 pg (27.0-31.0); MEAN CORPUSCULAR HGB CONC 34.6 pg (28.0-36.0); MEAN PLATELET VOLUME 7.4 fl; MONOCYTE ABSOLUTE 0.4 Th/cmm (0.3-1.0); PLATELET COUNT 257 Th/cmm (150-400); RED BLOOD COUNT 4.11 Mil/cmm (3.80-5.20); RED CELL DISTRIBUTION WIDTH 12.1 % (11.5-20.0); WHITE BLOOD COUNT 4.3 Th/cmm (4.8-10.8)
[2017-09-17 07:57] LABS: ANION GAP 10.5 (7.0-16.0); BUN - UREA NITROGEN 12 mg/dL (7-25); CALCIUM SERUM 9.5 mg/dL (8.6-10.3); CARBON DIOXIDE 27.6 mEq/L (21.0-31.0); CHLORIDE 98 mEq/L (98-107); CREATININE - SERUM 0.5 mg/dL (0.6-1.2); GLUCOSE 98 mg/dL (70-105); POTASSIUM SERUM 4.1 mEq/L (3.5-5.1); SODIUM SERUM 132 mEq/L (136-145)
[2017-09-17] MEDS: Atorvastatin Calcium 10 MG TAB PO SCH (08:13)
[2017-09-17] MEDS: Potassium Chloride 20 mEq ER Tab PO SCH (08:13)
--- NOTE | 2017-09-17 13:51 | Internal Medicine Prog Note ---
Internal Medicine Subjective - Subjective Service Date: 09/17/17 Patient is:: awake, verbal, agitated Per staff patient has:: tolerating meds Internal Medicine Objective - Results Result Diagrams: 09/17/17 07:20 09/17/17 07:20 Recent Labs: Laboratory Last Values WBC 4.3 Th/cmm (4.8-10.8) L 09/17/17 07:20 RBC 4.11 Mil/cmm (3.80-5.20) 09/17/17 07:20 Hgb 12.1 gm/dL (12-16) 09/17/17 07:20 Hct 35.1 % (41.0-60) L 09/17/17 07:20 MCV 85.3 fl (81-100) 09/17/17 07:20 MCH 29.5 pg (27.0-31.0) 09/17/17 07:20 MCHC Differential 34.6 pg (28.0-36.0) 09/17/17 07:20 RDW 12.1 % (11.5-20.0) 09/17/17 07:20 Plt Count 257 Th/cmm (150-400) 09/17/17 07:20 MPV 7.4 fl 09/17/17 07:20 Neutrophils % 47.3 % (40.0-80.0) 09/17/17 07:20 Lymphocytes % 38.6 % (20.0-50.0) 09/17/17 07:20 Monocytes % 10.2 % (2.0-10.0) H 09/17/17 07:20 Eosinophils % 2.5 % (0.0-5.0) 09/17/17 07:20 Basophils % 1.4 % (0.0-2.0) 09/17/17 07:20 Sodium 132 mEq/L (136-145) L 09/17/17 07:20 Potassium 4.1 mEq/L (3.5-5.1) 09/17/17 07:20 Chloride 98 mEq/L (98-107) 09/17/17 07:20 Carbon Dioxide 27.6 mEq/L (21.0-31.0) 09/17/17 07:20 Anion Gap 10.5 (7.0-16.0) 09/17/17 07:20 BUN 12 mg/dL (7-25) 09/17/17 07:20 Creatinine 0.5 mg/dL (0.6-1.2) L 09/17/17 07:20 Est GFR ( Amer) TNP 09/17/17 07:20 Est GFR (Non-Af Amer) TNP 09/17/17 07:20 BUN/Creatinine Ratio 24.0 09/17/17 07:20 Glucose 98 mg/dL (70-105) 09/17/17 07:20 Hemoglobin A1c % 5.8 % (4.0-6.0) 09/14/17 19:15 Calcium 9.5 mg/dL (8.6-10.3) 09/17/17 07:20 Total Bilirubin 0.4 mg/dL (0.3-1.0) 09/14/17 19:15 AST 16 U/L (13-39) 09/14/17 19:15 ALT 11 U/L (7-52) 09/14/17 19:15 Alkaline Phosphatase 94 U/L (34-104) 09/14/17 19:15 Total Protein 8.1 gm/dL (6.0-8.3) 09/14/17 19:15 Albumin 4.4 gm/dL (3.7-5.3) 09/14/17 19:15 Globulin 3.7 gm/dL 09/14/17 19:15 Albumin/Globulin Ratio 1.2 (1.0-1.8) 09/14/17 19:15 Triglycerides 267 mg/dL (<150) H 09/14/17 19:15 Cholesterol 232 mg/dL (<200) H 09/14/17 19:15 LDL Cholesterol Direct 154 mg/dL (75-193) 09/14/17 19:15 HDL Cholesterol 52 mg/dL (23-92) 09/14/17 19:15 TSH 0.80 uIU/ml (0.34-5.60) 09/14/17 19:15 Urine Source CLEAN C 09/14/17 19:20 Urine Color YELLOW 09/14/17 19:20 Urine Clarity CLEAR (CLEAR) 09/14/17 19:20 Urine pH 5.5 (4.6 - 8.0) 09/14/17 19:20 Ur Specific [place] <= 1.005 (1.005-1.030) 09/14/17 19:20 Urine Protein NEGATIVE mg/dL (NEGATIVE) 09/14/17 19:20 Urine Glucose (UA) NEGATIVE mg/dL (NEGATIVE) 09/14/17 19:20 Urine Ketones NEGATIVE mg/dL (NEGATIVE) 09/14/17 19:20 Urine Blood NEGATIVE (NEGATIVE) 09/14/17 19:20 Urine Nitrate NEGATIVE (NEGATIVE) 09/14/17 19:20 Urine Bilirubin NEGATIVE (NEGATIVE) 09/14/17 19:20 Urine Urobilinogen 0.2 E.U./dL (0.2 - 1.0) 09/14/17 19:20 Ur Leukocyte Esterase TRACE (NEGATIVE) H 09/14/17 19:20 Urine RBC 0-2 /hpf (0-5) 09/14/17 19:20 Urine WBC 0-2 /hpf (0-5) 09/14/17 19:20 Ur Epithelial Cells OCCASIONAL /lpf (FEW) 09/14/17 19:20 Urine Bacteria NONE SEEN /hpf (NONE SEEN) 09/14/17 19:20 RPR NONREACTIVE (NONREACTIVE) 09/14/17 19:15 - Physical Exam Vitals and I&O: Vital Signs Temp 98 F 09/17/17 06:45 Pulse 78 09/17/17 08:14 Resp 19 09/17/17 06:45 BP 155/82 09/17/17 08:14 Pulse Ox 97 09/17/17 06:45 Intake & Output 09/16/17 09/17/17 09/17/17 18:59 06:59 18:59 Intake Total 1000 120 Balance 1000 120 Intake: Oral 1000 120 Other: # Voids 4 3 # Bowel Movements 1 Stool Characteristics Liquid Liquid Liquid Active Medications: Current Medications Acetaminophen (Tylenol) 650 mg PO Q4HR PRN PRN Reason: Pain or Fever >101 Stop: 11/13/17 22:40 Atorvastatin Calcium (Lipitor) 20 mg PO DAILY [facility]; Protocol Stop: 11/14/17 12:44 Last Admin: 09/17/17 08:13 Dose: 20 mg Docusate Sodium (Colace) 100 mg PO BID [facility] Stop: 11/14/17 08:59 Last Admin: 09/17/17 08:13 Dose: 100 mg Levothyroxine Sodium (Synthroid) 0.125 mg PO QDAC [facility] Stop: 11/14/17 07:29 Last Admin: 09/17/17 06:48 Dose: Not Given Lisinopril (Zestril) 20 mg PO DAILY [facility] Stop: 11/14/17 08:59 Last Admin: 09/17/17 08:14 Dose: 20 mg Lorazepam (Ativan) 0.5 mg PO Q4HR PRN; Protocol PRN Reason: Anxiety Stop: 10/14/17 22:44 Last Admin: 09/16/17 21:26 Dose: 0.5 mg Magnesium Hydroxide (Milk Of Magnesia) 30 ml PO HS PRN PRN Reason: Constipation Stop: 11/13/17 22:40 Metoprolol Tartrate (Lopressor) 25 mg PO DAILY [facility] Stop: 11/14/17 08:59 Last Admin: 09/17/17 08:13 Dose: 25 mg Mupirocin (Bactroban Oint) 1 appl NS BID [facility] Stop: 09/21/17 09:01 Last Admin: 09/16/17 16:49 Dose: 1 appl Olanzapine (Zyprexa) 20 mg PO DAILY [facility]; Protocol Stop: 11/14/17 08:59 Last Admin: 09/17/17 08:13 Dose: 20 mg Potassium Chloride (Klor-Con) 20 meq PO DAILY [facility] Stop: 11/14/17 08:59 Last Admin: 09/17/17 08:13 Dose: 20 meq Sodium Chloride (Nacl Tab) 1 gm PO TID [facility] Stop: 11/14/17 08:59 Last Admin: 09/17/17 08:13 Dose: 1 gm Zolpidem Tartrate (Ambien) 5 mg PO HS PRN PRN Reason: Insomnia Stop: 11/13/17 22:44 Last Admin: 09/15/17 20:23 Dose: 5 mg General: alert HEENT: NC/AT, PERRLA Neck: Supple Lungs: CTAB Cardiovascular: RRR, Normal S1, Normal S2, without murmur Abdomen: soft, non-tender, non-distended, positive bowel sound Extremities: excoriation Neurological: alert - Procedures Procedures: Procedures Procedure Code Date APPENDECTOMY ADD-ON 51210 08/04/15 BYPASS TRANSVERSE COLON TO CUTANEOUS, OPEN APPROACH [id number] 08/04/15 COLOSTOMY 96808 08/04/15 EXCISION OF LARGE INTESTINE, OPEN APPROACH [id number] 08/04/15 GROUP PSYCHOTHERAPY 73907 07/31/15 GROUP PSYCHOTHERAPY GZHZZZZ 07/31/15 GROUP PSYCHOTHERAPY 77963 04/02/15 GROUP PSYCHOTHERAPY GZHZZZZ 04/02/15 OTHER GROUP THERAPY 94.44 11/07/14 PARTIAL REMOVAL OF COLON 22863 08/04/15 RECREATIONAL THERAPY 93.81 02/21/10 RESECTION OF APPENDIX, OPEN APPROACH [id number] 08/04/15 Internal Medicine Assmt/Plan - Assessment Assessment: MRSA NARES htn hypothyroidism diverting colostomy dmenetia obesity anemia hyponatremia hyperglycemia - Plan Plan: cont with bactroban fall precautions continue current plan of care
--- NOTE | 2017-09-17 20:07 | Progress Notes ---
DATE: 09/17/2017 Case was discussed with staff of the patient, reviewed records. The patient continues to have poor insight. Continues to be unpredictable, impulsive, and mumbling. Continues to be unable to participate in meaningful conversation or make safe plan for self-care, disorganized. She was restarted on the Zyprexa 20 mg at bedtime. She also on atorvastatin 20 mg daily, levothyroxine 0.125 mg daily, lisinopril 20 mg daily, metoprolol 25 mg daily, potassium chloride 20 mEq daily, and sodium chloride 1 gram 3 times a day. No side effects with the medications, no sedation, no nausea, and no extrapyramidal symptoms. She is considered at high fall risk because she has a unstable gait and because of her medication. We will continue outpatient group therapy, milieu therapy, and adjust medications as needed. [facility]# [id number]
[2017-09-18] MEDS: Atorvastatin Calcium 10 MG TAB PO SCH (09:14)
--- NOTE | 2017-09-18 13:06 | Internal Medicine Prog Note ---
Internal Medicine Subjective - Subjective Patient seen and examined:: with staff, chart reviewed Patient is:: awake, verbal, agitated Patient Complaints of:: congestion Per staff patient has:: no adverse event, no episodes of fall, poor appetite, tolerating meds Internal Medicine Objective - Results Result Diagrams: 09/17/17 07:20 09/17/17 07:20 Recent Labs: Laboratory Last Values WBC 4.3 Th/cmm (4.8-10.8) L 09/17/17 07:20 RBC 4.11 Mil/cmm (3.80-5.20) 09/17/17 07:20 Hgb 12.1 gm/dL (12-16) 09/17/17 07:20 Hct 35.1 % (41.0-60) L 09/17/17 07:20 MCV 85.3 fl (81-100) 09/17/17 07:20 MCH 29.5 pg (27.0-31.0) 09/17/17 07:20 MCHC Differential 34.6 pg (28.0-36.0) 09/17/17 07:20 RDW 12.1 % (11.5-20.0) 09/17/17 07:20 Plt Count 257 Th/cmm (150-400) 09/17/17 07:20 MPV 7.4 fl 09/17/17 07:20 Neutrophils % 47.3 % (40.0-80.0) 09/17/17 07:20 Lymphocytes % 38.6 % (20.0-50.0) 09/17/17 07:20 Monocytes % 10.2 % (2.0-10.0) H 09/17/17 07:20 Eosinophils % 2.5 % (0.0-5.0) 09/17/17 07:20 Basophils % 1.4 % (0.0-2.0) 09/17/17 07:20 Sodium 132 mEq/L (136-145) L 09/17/17 07:20 Potassium 4.1 mEq/L (3.5-5.1) 09/17/17 07:20 Chloride 98 mEq/L (98-107) 09/17/17 07:20 Carbon Dioxide 27.6 mEq/L (21.0-31.0) 09/17/17 07:20 Anion Gap 10.5 (7.0-16.0) 09/17/17 07:20 BUN 12 mg/dL (7-25) 09/17/17 07:20 Creatinine 0.5 mg/dL (0.6-1.2) L 09/17/17 07:20 Est GFR ( Amer) TNP 09/17/17 07:20 Est GFR (Non-Af Amer) TNP 09/17/17 07:20 BUN/Creatinine Ratio 24.0 09/17/17 07:20 Glucose 98 mg/dL (70-105) 09/17/17 07:20 Hemoglobin A1c % 5.8 % (4.0-6.0) 09/14/17 19:15 Calcium 9.5 mg/dL (8.6-10.3) 09/17/17 07:20 Total Bilirubin 0.4 mg/dL (0.3-1.0) 09/14/17 19:15 AST 16 U/L (13-39) 09/14/17 19:15 ALT 11 U/L (7-52) 09/14/17 19:15 Alkaline Phosphatase 94 U/L (34-104) 09/14/17 19:15 Total Protein 8.1 gm/dL (6.0-8.3) 09/14/17 19:15 Albumin 4.4 gm/dL (3.7-5.3) 09/14/17 19:15 Globulin 3.7 gm/dL 09/14/17 19:15 Albumin/Globulin Ratio 1.2 (1.0-1.8) 09/14/17 19:15 Triglycerides 267 mg/dL (<150) H 09/14/17 19:15 Cholesterol 232 mg/dL (<200) H 09/14/17 19:15 LDL Cholesterol Direct 154 mg/dL (75-193) 09/14/17 19:15 HDL Cholesterol 52 mg/dL (23-92) 09/14/17 19:15 TSH 0.80 uIU/ml (0.34-5.60) 09/14/17 19:15 Urine Source CLEAN C 09/14/17 19:20 Urine Color YELLOW 09/14/17 19:20 Urine Clarity CLEAR (CLEAR) 09/14/17 19:20 Urine pH 5.5 (4.6 - 8.0) 09/14/17 19:20 Ur Specific [place] <= 1.005 (1.005-1.030) 09/14/17 19:20 Urine Protein NEGATIVE mg/dL (NEGATIVE) 09/14/17 19:20 Urine Glucose (UA) NEGATIVE mg/dL (NEGATIVE) 09/14/17 19:20 Urine Ketones NEGATIVE mg/dL (NEGATIVE) 09/14/17 19:20 Urine Blood NEGATIVE (NEGATIVE) 09/14/17 19:20 Urine Nitrate NEGATIVE (NEGATIVE) 09/14/17 19:20 Urine Bilirubin NEGATIVE (NEGATIVE) 09/14/17 19:20 Urine Urobilinogen 0.2 E.U./dL (0.2 - 1.0) 09/14/17 19:20 Ur Leukocyte Esterase TRACE (NEGATIVE) H 09/14/17 19:20 Urine RBC 0-2 /hpf (0-5) 09/14/17 19:20 Urine WBC 0-2 /hpf (0-5) 09/14/17 19:20 Ur Epithelial Cells OCCASIONAL /lpf (FEW) 09/14/17 19:20 Urine Bacteria NONE SEEN /hpf (NONE SEEN) 09/14/17 19:20 RPR NONREACTIVE (NONREACTIVE) 09/14/17 19:15 - Physical Exam Vitals and I&O: Vital Signs Temp 97.1 F 09/18/17 06:40 Pulse 87 09/18/17 09:15 Resp 19 09/18/17 06:40 BP 134/86 09/18/17 09:15 Pulse Ox 99 09/18/17 06:40 Intake & Output 09/17/17 09/18/17 09/18/17 18:59 06:59 18:59 Intake Total 1200 120 Balance 1200 120 Intake: Oral 1200 120 Other: # Voids 3 3 Stool Characteristics Liquid Soft Liquid Formed Active Medications: Current Medications Acetaminophen (Tylenol) 650 mg PO Q4HR PRN PRN Reason: Pain or Fever >101 Stop: 11/13/17 22:40 Atorvastatin Calcium (Lipitor) 20 mg PO DAILY [facility]; Protocol Stop: 11/14/17 12:44 Last Admin: 09/18/17 09:14 Dose: 20 mg Docusate Sodium (Colace) 100 mg PO BID [facility] Stop: 11/14/17 08:59 Last Admin: 09/18/17 09:14 Dose: 100 mg Levothyroxine Sodium 0.1 mg/ (Levothyroxine Sodium 0.025 mg) 0.125 mg PO QDAC [facility] Stop: 11/17/17 07:29 Last Admin: 09/18/17 06:49 Dose: 0.125 mg Lisinopril (Zestril) 20 mg PO DAILY [facility] Stop: 11/14/17 08:59 Last Admin: 09/18/17 09:15 Dose: 20 mg Lorazepam (Ativan) 0.5 mg PO Q4HR PRN; Protocol PRN Reason: Anxiety Stop: 10/14/17 22:44 Last Admin: 09/17/17 17:37 Dose: 0.5 mg Magnesium Hydroxide (Milk Of Magnesia) 30 ml PO HS PRN PRN Reason: Constipation Stop: 11/13/17 22:40 Metoprolol Tartrate (Lopressor) 25 mg PO DAILY [facility] Stop: 11/14/17 08:59 Last Admin: 09/18/17 09:14 Dose: 25 mg Mupirocin (Bactroban Oint) 1 appl NS BID [facility] Stop: 09/21/17 09:01 Last Admin: 09/18/17 09:16 Dose: 1 appl Olanzapine (Zyprexa) 22.5 mg PO DAILY [facility]; Protocol Stop: 11/18/17 08:59 Sodium Chloride (Nacl Tab) 1 gm PO TID [facility] Stop: 11/14/17 08:59 Last Admin: 09/18/17 09:14 Dose: 1 gm Zolpidem Tartrate (Ambien) 5 mg PO HS PRN PRN Reason: Insomnia Stop: 11/13/17 22:44 Last Admin: 09/17/17 21:09 Dose: 5 mg General: alert HEENT: NC/AT, PERRLA Neck: Supple Lungs: CTAB Cardiovascular: RRR, Normal S1, Normal S2, without murmur Abdomen: soft, non-tender, non-distended, positive bowel sound Extremities: excoriation Neurological: alert - Procedures Procedures: Procedures Procedure Code Date APPENDECTOMY ADD-ON 06547 08/04/15 BYPASS TRANSVERSE COLON TO CUTANEOUS, OPEN APPROACH [id number] 08/04/15 COLOSTOMY 86785 08/04/15 EXCISION OF LARGE INTESTINE, OPEN APPROACH [id number] 08/04/15 GROUP PSYCHOTHERAPY 41056 07/31/15 GROUP PSYCHOTHERAPY GZHZZZZ 07/31/15 GROUP PSYCHOTHERAPY 01781 04/02/15 GROUP PSYCHOTHERAPY GZHZZZZ 04/02/15 OTHER GROUP THERAPY 94.44 11/07/14 PARTIAL REMOVAL OF COLON 77040 08/04/15 RECREATIONAL THERAPY 93.81 02/21/10 RESECTION OF APPENDIX, OPEN APPROACH [id number] 08/04/15 Internal Medicine Assmt/Plan - Assessment Assessment: - Assessment Assessment: MRSA NARES htn hypothyroidism diverting colostomy dmenetia obesity anemia hyponatremia hyperglycemia - Plan Plan: cont with bactroban fall precautions continue current plan of care - Plan Plan: cpm
--- NOTE | 2017-09-18 23:38 | Progress Notes ---
DATE: 09/18/2017 Case was discussed with staff of the patient, reviewed records. The patient continues to be rambling. She has been urinating on the floor according to the staff, very hard to redirect, unpredictable, impulsive, needing redirection, very poor insight. Unable to make safe plan for self-care. Her speech is mumbled. She has a hole in the soft palate ____. She continues to have poor insight, responding to internal stimuli. I will be increasing her olanzapine to 22.5 mg at bedtime. So far, no side effects, no sedation, no nausea, no extrapyramidal symptoms. She tends to have unstable gait. She is a fall risk. We will continue to work with the patient in group therapy and milieu therapy, adjust the medication as needed. JOB# [id number]
[2017-09-19] MEDS: Atorvastatin Calcium 10 MG TAB PO SCH (08:28)
--- NOTE | 2017-09-19 12:57 | Internal Medicine Prog Note ---
Internal Medicine Subjective - Subjective Patient seen and examined:: with staff, chart reviewed Patient is:: awake, verbal, interactive, agitated Patient Complaints of:: congestion Per staff patient has:: no adverse event, no episodes of fall, poor appetite, tolerating meds Internal Medicine Objective - Results Result Diagrams: 09/17/17 07:20 09/17/17 07:20 Recent Labs: Laboratory Last Values WBC 4.3 Th/cmm (4.8-10.8) L 09/17/17 07:20 RBC 4.11 Mil/cmm (3.80-5.20) 09/17/17 07:20 Hgb 12.1 gm/dL (12-16) 09/17/17 07:20 Hct 35.1 % (41.0-60) L 09/17/17 07:20 MCV 85.3 fl (81-100) 09/17/17 07:20 MCH 29.5 pg (27.0-31.0) 09/17/17 07:20 MCHC Differential 34.6 pg (28.0-36.0) 09/17/17 07:20 RDW 12.1 % (11.5-20.0) 09/17/17 07:20 Plt Count 257 Th/cmm (150-400) 09/17/17 07:20 MPV 7.4 fl 09/17/17 07:20 Neutrophils % 47.3 % (40.0-80.0) 09/17/17 07:20 Lymphocytes % 38.6 % (20.0-50.0) 09/17/17 07:20 Monocytes % 10.2 % (2.0-10.0) H 09/17/17 07:20 Eosinophils % 2.5 % (0.0-5.0) 09/17/17 07:20 Basophils % 1.4 % (0.0-2.0) 09/17/17 07:20 Sodium 132 mEq/L (136-145) L 09/17/17 07:20 Potassium 4.1 mEq/L (3.5-5.1) 09/17/17 07:20 Chloride 98 mEq/L (98-107) 09/17/17 07:20 Carbon Dioxide 27.6 mEq/L (21.0-31.0) 09/17/17 07:20 Anion Gap 10.5 (7.0-16.0) 09/17/17 07:20 BUN 12 mg/dL (7-25) 09/17/17 07:20 Creatinine 0.5 mg/dL (0.6-1.2) L 09/17/17 07:20 Est GFR ( Amer) TNP 09/17/17 07:20 Est GFR (Non-Af Amer) TNP 09/17/17 07:20 BUN/Creatinine Ratio 24.0 09/17/17 07:20 Glucose 98 mg/dL (70-105) 09/17/17 07:20 Hemoglobin A1c % 5.8 % (4.0-6.0) 09/14/17 19:15 Calcium 9.5 mg/dL (8.6-10.3) 09/17/17 07:20 Total Bilirubin 0.4 mg/dL (0.3-1.0) 09/14/17 19:15 AST 16 U/L (13-39) 09/14/17 19:15 ALT 11 U/L (7-52) 09/14/17 19:15 Alkaline Phosphatase 94 U/L (34-104) 09/14/17 19:15 Total Protein 8.1 gm/dL (6.0-8.3) 09/14/17 19:15 Albumin 4.4 gm/dL (3.7-5.3) 09/14/17 19:15 Globulin 3.7 gm/dL 09/14/17 19:15 Albumin/Globulin Ratio 1.2 (1.0-1.8) 09/14/17 19:15 Triglycerides 267 mg/dL (<150) H 09/14/17 19:15 Cholesterol 232 mg/dL (<200) H 09/14/17 19:15 LDL Cholesterol Direct 154 mg/dL (75-193) 09/14/17 19:15 HDL Cholesterol 52 mg/dL (23-92) 09/14/17 19:15 TSH 0.80 uIU/ml (0.34-5.60) 09/14/17 19:15 Urine Source CLEAN C 09/14/17 19:20 Urine Color YELLOW 09/14/17 19:20 Urine Clarity CLEAR (CLEAR) 09/14/17 19:20 Urine pH 5.5 (4.6 - 8.0) 09/14/17 19:20 Ur Specific [place] <= 1.005 (1.005-1.030) 09/14/17 19:20 Urine Protein NEGATIVE mg/dL (NEGATIVE) 09/14/17 19:20 Urine Glucose (UA) NEGATIVE mg/dL (NEGATIVE) 09/14/17 19:20 Urine Ketones NEGATIVE mg/dL (NEGATIVE) 09/14/17 19:20 Urine Blood NEGATIVE (NEGATIVE) 09/14/17 19:20 Urine Nitrate NEGATIVE (NEGATIVE) 09/14/17 19:20 Urine Bilirubin NEGATIVE (NEGATIVE) 09/14/17 19:20 Urine Urobilinogen 0.2 E.U./dL (0.2 - 1.0) 09/14/17 19:20 Ur Leukocyte Esterase TRACE (NEGATIVE) H 09/14/17 19:20 Urine RBC 0-2 /hpf (0-5) 09/14/17 19:20 Urine WBC 0-2 /hpf (0-5) 09/14/17 19:20 Ur Epithelial Cells OCCASIONAL /lpf (FEW) 09/14/17 19:20 Urine Bacteria NONE SEEN /hpf (NONE SEEN) 09/14/17 19:20 RPR NONREACTIVE (NONREACTIVE) 09/14/17 19:15 - Physical Exam Vitals and I&O: Vital Signs Temp 97.2 F 09/19/17 06:03 Pulse 78 09/19/17 08:30 Resp 18 09/19/17 06:03 BP 126/85 09/19/17 08:30 Pulse Ox 96 09/19/17 06:03 Intake & Output 09/18/17 09/19/17 09/19/17 18:59 06:59 18:59 Intake Total 1200 240 Output Total 450 1 Balance 750 239 Intake: Oral 1200 240 Output: Urine 1 Stool 450 Other: # Voids 4 Stool Characteristics Liquid Soft Formed Active Medications: Current Medications Acetaminophen (Tylenol) 650 mg PO Q4HR PRN PRN Reason: Pain or Fever >101 Stop: 11/13/17 22:40 Atorvastatin Calcium (Lipitor) 20 mg PO DAILY [facility]; Protocol Stop: 11/14/17 12:44 Last Admin: 09/19/17 08:28 Dose: 20 mg Docusate Sodium (Colace) 100 mg PO BID [facility] Stop: 11/14/17 08:59 Last Admin: 09/19/17 08:32 Dose: 100 mg Levothyroxine Sodium 0.1 mg/ (Levothyroxine Sodium 0.025 mg) 0.125 mg PO QDAC [facility] Stop: 11/17/17 07:29 Last Admin: 09/19/17 06:44 Dose: 0.125 mg Lisinopril (Zestril) 20 mg PO DAILY [facility] Stop: 11/14/17 08:59 Last Admin: 09/19/17 08:27 Dose: 20 mg Lorazepam (Ativan) 0.5 mg PO Q4HR PRN; Protocol PRN Reason: Anxiety Stop: 10/14/17 22:44 Last Admin: 09/17/17 17:37 Dose: 0.5 mg Magnesium Hydroxide (Milk Of Magnesia) 30 ml PO HS PRN PRN Reason: Constipation Stop: 11/13/17 22:40 Metoprolol Tartrate (Lopressor) 25 mg PO DAILY [facility] Stop: 11/14/17 08:59 Last Admin: 09/19/17 08:30 Dose: 25 mg Mupirocin (Bactroban Oint) 1 appl NS BID [facility] Stop: 09/21/17 09:01 Last Admin: 09/19/17 08:33 Dose: 1 appl Olanzapine (Zyprexa) 22.5 mg PO DAILY [facility]; Protocol Stop: 11/18/17 08:59 Last Admin: 09/19/17 08:26 Dose: 22.5 mg Sodium Chloride (Nacl Tab) 1 gm PO TID [facility] Stop: 11/14/17 08:59 Last Admin: 09/19/17 08:29 Dose: 1 gm Zolpidem Tartrate (Ambien) 5 mg PO HS PRN PRN Reason: Insomnia Stop: 11/13/17 22:44 Last Admin: 09/18/17 21:06 Dose: 5 mg General: alert HEENT: NC/AT, PERRLA Neck: Supple Lungs: CTAB Cardiovascular: RRR, Normal S1, Normal S2, without murmur Abdomen: soft, non-tender, non-distended, positive bowel sound Extremities: excoriation Neurological: alert - Procedures Procedures: Procedures Procedure Code Date APPENDECTOMY ADD-ON 34023 08/04/15 BYPASS TRANSVERSE COLON TO CUTANEOUS, OPEN APPROACH [id number] 08/04/15 COLOSTOMY 26285 08/04/15 EXCISION OF LARGE INTESTINE, OPEN APPROACH [id number] 08/04/15 GROUP PSYCHOTHERAPY 63113 07/31/15 GROUP PSYCHOTHERAPY GZHZZZZ 07/31/15 GROUP PSYCHOTHERAPY 58517 04/02/15 GROUP PSYCHOTHERAPY GZHZZZZ 04/02/15 OTHER GROUP THERAPY 94.44 11/07/14 PARTIAL REMOVAL OF COLON 03876 08/04/15 RECREATIONAL THERAPY 93.81 02/21/10 RESECTION OF APPENDIX, OPEN APPROACH [id number] 08/04/15 Internal Medicine Assmt/Plan - Assessment Assessment: - Assessment Assessment: MRSA NARES htn hypothyroidism diverting colostomy dmenetia obesity anemia hyponatremia hyperglycemia - Plan Plan: cont with bactroban fall precautions continue current plan of care - Plan Plan: cpm Nutritional Asmnt/Malnutr-PDOC - Dietary Evaluation Malnutrition Findings (Please click <Entered> for more info): Nutritional Asmnt/Malnutrition Start: 09/18/17 14: 05 Text: Status: Complete Freq: Protocol: Document 09/18/17 14:06 EDWIN (Rec: 09/18/17 14:22 EDWIN [email or web address]) Nutritional Asmnt/Malnutrition Patient General Information Nutritional Screening Moderate Risk Diagnosis psychosis Pertinent Medical Hx/Surgical Hx HTN, thyroid disorder, cardiomegaly, hypothyroidism, rectal prolapse, femal geital prolapse, hyponatremia, schizophrenia, ptosis, schizophrenia Subjective Information Per EMR, PO intake 100% of meals. Per nurse note, pt was confused and rambling, difficult to understand her. Current Diet Order/ Nutrition Support mech soft ground Pertinent Medications levothyroixine, nacl Pertinent Labs 09/17 Na 132, Cr 0.5, glucose 98 09/14 Na 124, Cl 91, Cr 0.5, glucose 106, A1c 5.8 Nutritional Hx/Data Height 1.91 m Height (Calculated Centimeters) 190.5 Current Weight (lbs) 67.585 kg Weight (Calculated Kilograms) 67.6 Weight (Calculated Grams) 13995.3 [place] Body Weight 196 Body Mass Index (BMI) 18.6 Weight Status Approriate GI Symptoms GI Symptoms None Last BM 09/16 Difficult in: None Skin Integrity/Comment: dryness, Fabrizio 19 Current %PO Good (75-100%) Estimated Nutritional Goals BEE in Kcals: Using Current wt Calories/Kcals/Kg 27-32 Kcals Calculated 9857-8444 Protein: Using Current wt Protein g/k-1.2 Protein Calculated 68-82 Fluid: ml 1836-2176ml (1ml/kcal) Nutritional Problem No current Nutrition Prob Problem N/A Malnutrition Alert Is there a minimum of two criteria No selected? Query Text:Check all the applicable criteria. A minimum of two criteria are recommended for diagnosis of either severe or non-severe malnutrition. Malnutrition Related to Morbid Obesity Malnutrition related to morbid obesity No Intervention/Recommendation Comments 1. Continue with [facility] soft ground diet as ordered. 2. Monitor PO intake, wt, labs and skin integrity 3. F/U as low risk in 7 days, 09/25 Expected Outcomes/Goals Expected Outcomes/Goals 1. PO intake to meet at least 75% of nutritional needs. 2. Wt stability, skin to remain intact, labs to approach WNL.
--- NOTE | 2017-09-19 23:54 | Progress Notes ---
DATE: 09/19/2017 Case was discussed with staff of the patient, reviewed records. The patient continues to be irritable, paranoid, mumbling to herself, needing redirection. She is still urinating, acting inappropriately bizarre, psychotic. She did tolerate the increase in Zyprexa yesterday with no side effects, no sedation, no nausea, no extrapyramidal symptoms. We will work with the patient in group therapy and milieu therapy, adjust medications as needed. JOB# [id number]
[2017-09-20] MEDS: Atorvastatin Calcium 10 MG TAB PO SCH (08:36)
--- NOTE | 2017-09-20 14:02 | Internal Medicine Prog Note ---
Internal Medicine Subjective - Subjective Patient seen and examined:: with staff, chart reviewed Patient is:: awake, verbal, interactive, agitated Patient Complaints of:: congestion Per staff patient has:: no adverse event, no episodes of fall, poor appetite, tolerating meds Internal Medicine Objective - Results Result Diagrams: 09/17/17 07:20 09/17/17 07:20 Recent Labs: Laboratory Last Values WBC 4.3 Th/cmm (4.8-10.8) L 09/17/17 07:20 RBC 4.11 Mil/cmm (3.80-5.20) 09/17/17 07:20 Hgb 12.1 gm/dL (12-16) 09/17/17 07:20 Hct 35.1 % (41.0-60) L 09/17/17 07:20 MCV 85.3 fl (81-100) 09/17/17 07:20 MCH 29.5 pg (27.0-31.0) 09/17/17 07:20 MCHC Differential 34.6 pg (28.0-36.0) 09/17/17 07:20 RDW 12.1 % (11.5-20.0) 09/17/17 07:20 Plt Count 257 Th/cmm (150-400) 09/17/17 07:20 MPV 7.4 fl 09/17/17 07:20 Neutrophils % 47.3 % (40.0-80.0) 09/17/17 07:20 Lymphocytes % 38.6 % (20.0-50.0) 09/17/17 07:20 Monocytes % 10.2 % (2.0-10.0) H 09/17/17 07:20 Eosinophils % 2.5 % (0.0-5.0) 09/17/17 07:20 Basophils % 1.4 % (0.0-2.0) 09/17/17 07:20 Sodium 132 mEq/L (136-145) L 09/17/17 07:20 Potassium 4.1 mEq/L (3.5-5.1) 09/17/17 07:20 Chloride 98 mEq/L (98-107) 09/17/17 07:20 Carbon Dioxide 27.6 mEq/L (21.0-31.0) 09/17/17 07:20 Anion Gap 10.5 (7.0-16.0) 09/17/17 07:20 BUN 12 mg/dL (7-25) 09/17/17 07:20 Creatinine 0.5 mg/dL (0.6-1.2) L 09/17/17 07:20 Est GFR ( Amer) TNP 09/17/17 07:20 Est GFR (Non-Af Amer) TNP 09/17/17 07:20 BUN/Creatinine Ratio 24.0 09/17/17 07:20 Glucose 98 mg/dL (70-105) 09/17/17 07:20 Hemoglobin A1c % 5.8 % (4.0-6.0) 09/14/17 19:15 Calcium 9.5 mg/dL (8.6-10.3) 09/17/17 07:20 Total Bilirubin 0.4 mg/dL (0.3-1.0) 09/14/17 19:15 AST 16 U/L (13-39) 09/14/17 19:15 ALT 11 U/L (7-52) 09/14/17 19:15 Alkaline Phosphatase 94 U/L (34-104) 09/14/17 19:15 Total Protein 8.1 gm/dL (6.0-8.3) 09/14/17 19:15 Albumin 4.4 gm/dL (3.7-5.3) 09/14/17 19:15 Globulin 3.7 gm/dL 09/14/17 19:15 Albumin/Globulin Ratio 1.2 (1.0-1.8) 09/14/17 19:15 Triglycerides 267 mg/dL (<150) H 09/14/17 19:15 Cholesterol 232 mg/dL (<200) H 09/14/17 19:15 LDL Cholesterol Direct 154 mg/dL (75-193) 09/14/17 19:15 HDL Cholesterol 52 mg/dL (23-92) 09/14/17 19:15 TSH 0.80 uIU/ml (0.34-5.60) 09/14/17 19:15 Urine Source CLEAN C 09/14/17 19:20 Urine Color YELLOW 09/14/17 19:20 Urine Clarity CLEAR (CLEAR) 09/14/17 19:20 Urine pH 5.5 (4.6 - 8.0) 09/14/17 19:20 Ur Specific [place] <= 1.005 (1.005-1.030) 09/14/17 19:20 Urine Protein NEGATIVE mg/dL (NEGATIVE) 09/14/17 19:20 Urine Glucose (UA) NEGATIVE mg/dL (NEGATIVE) 09/14/17 19:20 Urine Ketones NEGATIVE mg/dL (NEGATIVE) 09/14/17 19:20 Urine Blood NEGATIVE (NEGATIVE) 09/14/17 19:20 Urine Nitrate NEGATIVE (NEGATIVE) 09/14/17 19:20 Urine Bilirubin NEGATIVE (NEGATIVE) 09/14/17 19:20 Urine Urobilinogen 0.2 E.U./dL (0.2 - 1.0) 09/14/17 19:20 Ur Leukocyte Esterase TRACE (NEGATIVE) H 09/14/17 19:20 Urine RBC 0-2 /hpf (0-5) 09/14/17 19:20 Urine WBC 0-2 /hpf (0-5) 09/14/17 19:20 Ur Epithelial Cells OCCASIONAL /lpf (FEW) 09/14/17 19:20 Urine Bacteria NONE SEEN /hpf (NONE SEEN) 09/14/17 19:20 RPR NONREACTIVE (NONREACTIVE) 09/14/17 19:15 - Physical Exam Vitals and I&O: Vital Signs Temp 97.9 F 09/20/17 06:38 Pulse 80 09/20/17 08:38 Resp 19 09/20/17 06:38 BP 141/69 09/20/17 08:38 Pulse Ox 99 09/20/17 06:38 Intake & Output 09/19/17 09/20/17 09/20/17 18:59 06:59 18:59 Intake Total 1200 720 Balance 1200 720 Intake: Oral 1200 720 Other: # Voids 3 2 # Bowel Movements 2 Stool Characteristics Soft Formed Active Medications: Current Medications Acetaminophen (Tylenol) 650 mg PO Q4HR PRN PRN Reason: Pain or Fever >101 Stop: 11/13/17 22:40 Atorvastatin Calcium (Lipitor) 20 mg PO DAILY [facility]; Protocol Stop: 11/14/17 12:44 Last Admin: 09/20/17 08:36 Dose: 20 mg Docusate Sodium (Colace) 100 mg PO BID [facility] Stop: 11/14/17 08:59 Last Admin: 09/20/17 08:38 Dose: 100 mg Levothyroxine Sodium 0.1 mg/ (Levothyroxine Sodium 0.025 mg) 0.125 mg PO QDAC [facility] Stop: 11/17/17 07:29 Last Admin: 09/20/17 06:31 Dose: 0.125 mg Lisinopril (Zestril) 20 mg PO DAILY [facility] Stop: 11/14/17 08:59 Last Admin: 09/20/17 08:37 Dose: 20 mg Lorazepam (Ativan) 0.5 mg PO Q4HR PRN; Protocol PRN Reason: Anxiety Stop: 10/14/17 22:44 Last Admin: 09/17/17 17:37 Dose: 0.5 mg Magnesium Hydroxide (Milk Of Magnesia) 30 ml PO HS PRN PRN Reason: Constipation Stop: 11/13/17 22:40 Metoprolol Tartrate (Lopressor) 25 mg PO DAILY [facility] Stop: 11/14/17 08:59 Last Admin: 09/20/17 08:38 Dose: 25 mg Mupirocin (Bactroban Oint) 1 appl NS BID [facility] Stop: 09/21/17 09:01 Last Admin: 09/20/17 08:39 Dose: 1 appl Olanzapine (Zyprexa) 22.5 mg PO DAILY [facility]; Protocol Stop: 11/18/17 08:59 Last Admin: 09/20/17 08:35 Dose: 22.5 mg Sodium Chloride (Nacl Tab) 1 gm PO TID [facility] Stop: 11/14/17 08:59 Last Admin: 09/20/17 08:35 Dose: 1 gm Zolpidem Tartrate (Ambien) 5 mg PO HS PRN PRN Reason: Insomnia Stop: 11/13/17 22:44 Last Admin: 09/19/17 20:41 Dose: 5 mg General: alert HEENT: NC/AT, PERRLA Neck: Supple Lungs: CTAB Cardiovascular: RRR, Normal S1, Normal S2, without murmur Abdomen: soft, non-tender, non-distended, positive bowel sound Extremities: excoriation Neurological: alert - Procedures Procedures: Procedures Procedure Code Date APPENDECTOMY ADD-ON 66759 08/04/15 BYPASS TRANSVERSE COLON TO CUTANEOUS, OPEN APPROACH [id number] 08/04/15 COLOSTOMY 03942 08/04/15 EXCISION OF LARGE INTESTINE, OPEN APPROACH [id number] 08/04/15 GROUP PSYCHOTHERAPY 25509 07/31/15 GROUP PSYCHOTHERAPY GZHZZZZ 07/31/15 GROUP PSYCHOTHERAPY 73751 04/02/15 GROUP PSYCHOTHERAPY GZHZZZZ 04/02/15 OTHER GROUP THERAPY 94.44 11/07/14 PARTIAL REMOVAL OF COLON 78025 08/04/15 RECREATIONAL THERAPY 93.81 02/21/10 RESECTION OF APPENDIX, OPEN APPROACH [id number] 08/04/15 Internal Medicine Assmt/Plan - Assessment Assessment: - Assessment Assessment: MRSA NARES htn hypothyroidism diverting colostomy dmenetia obesity anemia hyponatremia hyperglycemia - Plan Plan: cont with bactroban fall precautions continue current plan of care - Plan Plan: cpm Nutritional Asmnt/Malnutr-PDOC - Dietary Evaluation Malnutrition Findings (Please click <Entered> for more info): Nutritional Asmnt/Malnutrition Start: 09/18/17 14: 05 Text: Status: Complete Freq: Protocol: Document 09/18/17 14:06 EDWIN (Rec: 09/18/17 14:22 EDWIN [email or web address]) Nutritional Asmnt/Malnutrition Patient General Information Nutritional Screening Moderate Risk Diagnosis psychosis Pertinent Medical Hx/Surgical Hx HTN, thyroid disorder, cardiomegaly, hypothyroidism, rectal prolapse, femal geital prolapse, hyponatremia, schizophrenia, ptosis, schizophrenia Subjective Information Per EMR, PO intake 100% of meals. Per nurse note, pt was confused and rambling, difficult to understand her. Current Diet Order/ Nutrition Support mech soft ground Pertinent Medications levothyroixine, nacl Pertinent Labs 09/17 Na 132, Cr 0.5, glucose 98 09/14 Na 124, Cl 91, Cr 0.5, glucose 106, A1c 5.8 Nutritional Hx/Data Height 1.91 m Height (Calculated Centimeters) 190.5 Current Weight (lbs) 67.585 kg Weight (Calculated Kilograms) 67.6 Weight (Calculated Grams) 95675.3 [place] Body Weight 196 Body Mass Index (BMI) 18.6 Weight Status Approriate GI Symptoms GI Symptoms None Last BM 09/16 Difficult in: None Skin Integrity/Comment: dryness, Fabrizio 19 Current %PO Good (75-100%) Estimated Nutritional Goals BEE in Kcals: Using Current wt Calories/Kcals/Kg 27-32 Kcals Calculated 8581-8123 Protein: Using Current wt Protein g/k-1.2 Protein Calculated 68-82 Fluid: ml 1836-2176ml (1ml/kcal) Nutritional Problem No current Nutrition Prob Problem N/A Malnutrition Alert Is there a minimum of two criteria No selected? Query Text:Check all the applicable criteria. A minimum of two criteria are recommended for diagnosis of either severe or non-severe malnutrition. Malnutrition Related to Morbid Obesity Malnutrition related to morbid obesity No Intervention/Recommendation Comments 1. Continue with [facility] soft ground diet as ordered. 2. Monitor PO intake, wt, labs and skin integrity 3. F/U as low risk in 7 days, 09/25 Expected Outcomes/Goals Expected Outcomes/Goals 1. PO intake to meet at least 75% of nutritional needs. 2. Wt stability, skin to remain intact, labs to approach WNL.
--- NOTE | 2017-09-21 | Progress Notes ---
DATE: 09/20/2017 SUBJECTIVE: Case was discussed with staff of the patient and reviewed records. The patient continues to be rambling, unpredictable, impulsive, continues to have poor insight, continues to be unable to make safe plan for self-care, continues to be delusional, urinating on the floor, responding poorly to redirection. No side effects with the medication, no sedation, no nausea, no extrapyramidal symptoms. We will continue to work with the patient in group therapy, milieu that, and adjust medications as needed. JOB# [id number]
[2017-09-21] MEDS: Atorvastatin Calcium 10 MG TAB PO SCH (08:35)
--- NOTE | 2017-09-21 11:45 | Internal Medicine Prog Note ---
Internal Medicine Subjective - Subjective Service Date: 09/21/17 Patient is:: awake, verbal, interactive, agitated Patient Complaints of:: congestion Per staff patient has:: no adverse event, no episodes of fall, poor appetite, tolerating meds Internal Medicine Objective - Results Result Diagrams: 09/17/17 07:20 09/17/17 07:20 Recent Labs: Laboratory Last Values WBC 4.3 Th/cmm (4.8-10.8) L 09/17/17 07:20 RBC 4.11 Mil/cmm (3.80-5.20) 09/17/17 07:20 Hgb 12.1 gm/dL (12-16) 09/17/17 07:20 Hct 35.1 % (41.0-60) L 09/17/17 07:20 MCV 85.3 fl (81-100) 09/17/17 07:20 MCH 29.5 pg (27.0-31.0) 09/17/17 07:20 MCHC Differential 34.6 pg (28.0-36.0) 09/17/17 07:20 RDW 12.1 % (11.5-20.0) 09/17/17 07:20 Plt Count 257 Th/cmm (150-400) 09/17/17 07:20 MPV 7.4 fl 09/17/17 07:20 Neutrophils % 47.3 % (40.0-80.0) 09/17/17 07:20 Lymphocytes % 38.6 % (20.0-50.0) 09/17/17 07:20 Monocytes % 10.2 % (2.0-10.0) H 09/17/17 07:20 Eosinophils % 2.5 % (0.0-5.0) 09/17/17 07:20 Basophils % 1.4 % (0.0-2.0) 09/17/17 07:20 Sodium 132 mEq/L (136-145) L 09/17/17 07:20 Potassium 4.1 mEq/L (3.5-5.1) 09/17/17 07:20 Chloride 98 mEq/L (98-107) 09/17/17 07:20 Carbon Dioxide 27.6 mEq/L (21.0-31.0) 09/17/17 07:20 Anion Gap 10.5 (7.0-16.0) 09/17/17 07:20 BUN 12 mg/dL (7-25) 09/17/17 07:20 Creatinine 0.5 mg/dL (0.6-1.2) L 09/17/17 07:20 Est GFR ( Amer) TNP 09/17/17 07:20 Est GFR (Non-Af Amer) TNP 09/17/17 07:20 BUN/Creatinine Ratio 24.0 09/17/17 07:20 Glucose 98 mg/dL (70-105) 09/17/17 07:20 Hemoglobin A1c % 5.8 % (4.0-6.0) 09/14/17 19:15 Calcium 9.5 mg/dL (8.6-10.3) 09/17/17 07:20 Total Bilirubin 0.4 mg/dL (0.3-1.0) 09/14/17 19:15 AST 16 U/L (13-39) 09/14/17 19:15 ALT 11 U/L (7-52) 09/14/17 19:15 Alkaline Phosphatase 94 U/L (34-104) 09/14/17 19:15 Total Protein 8.1 gm/dL (6.0-8.3) 09/14/17 19:15 Albumin 4.4 gm/dL (3.7-5.3) 09/14/17 19:15 Globulin 3.7 gm/dL 09/14/17 19:15 Albumin/Globulin Ratio 1.2 (1.0-1.8) 09/14/17 19:15 Triglycerides 267 mg/dL (<150) H 09/14/17 19:15 Cholesterol 232 mg/dL (<200) H 09/14/17 19:15 LDL Cholesterol Direct 154 mg/dL (75-193) 09/14/17 19:15 HDL Cholesterol 52 mg/dL (23-92) 09/14/17 19:15 TSH 0.80 uIU/ml (0.34-5.60) 09/14/17 19:15 Urine Source CLEAN C 09/14/17 19:20 Urine Color YELLOW 09/14/17 19:20 Urine Clarity CLEAR (CLEAR) 09/14/17 19:20 Urine pH 5.5 (4.6 - 8.0) 09/14/17 19:20 Ur Specific [place] <= 1.005 (1.005-1.030) 09/14/17 19:20 Urine Protein NEGATIVE mg/dL (NEGATIVE) 09/14/17 19:20 Urine Glucose (UA) NEGATIVE mg/dL (NEGATIVE) 09/14/17 19:20 Urine Ketones NEGATIVE mg/dL (NEGATIVE) 09/14/17 19:20 Urine Blood NEGATIVE (NEGATIVE) 09/14/17 19:20 Urine Nitrate NEGATIVE (NEGATIVE) 09/14/17 19:20 Urine Bilirubin NEGATIVE (NEGATIVE) 09/14/17 19:20 Urine Urobilinogen 0.2 E.U./dL (0.2 - 1.0) 09/14/17 19:20 Ur Leukocyte Esterase TRACE (NEGATIVE) H 09/14/17 19:20 Urine RBC 0-2 /hpf (0-5) 09/14/17 19:20 Urine WBC 0-2 /hpf (0-5) 09/14/17 19:20 Ur Epithelial Cells OCCASIONAL /lpf (FEW) 09/14/17 19:20 Urine Bacteria NONE SEEN /hpf (NONE SEEN) 09/14/17 19:20 RPR NONREACTIVE (NONREACTIVE) 09/14/17 19:15 - Physical Exam Vitals and I&O: Vital Signs Temp 97.7 F 09/21/17 06:12 Pulse 75 09/21/17 08:37 Resp 19 09/21/17 06:12 BP 164/77 09/21/17 08:37 Pulse Ox 98 09/21/17 06:12 Intake & Output 09/20/17 09/21/17 09/21/17 18:59 06:59 18:59 Intake Total 1200 540 Balance 1200 540 Intake: Oral 1200 540 Other: # Voids 4 1 Stool Characteristics Soft Soft Formed Formed Active Medications: Current Medications Acetaminophen (Tylenol) 650 mg PO Q4HR PRN PRN Reason: Pain or Fever >101 Stop: 11/13/17 22:40 Atorvastatin Calcium (Lipitor) 20 mg PO DAILY NICOLE; Protocol Stop: 11/14/17 12:44 Last Admin: 09/21/17 08:35 Dose: 20 mg Docusate Sodium (Colace) 100 mg PO BID NICOLE Stop: 11/14/17 08:59 Last Admin: 09/21/17 08:37 Dose: 100 mg Levothyroxine Sodium 0.1 mg/ (Levothyroxine Sodium 0.025 mg) 0.125 mg PO QDAC [facility] Stop: 11/17/17 07:29 Last Admin: 09/21/17 06:50 Dose: 0.125 mg Lisinopril (Zestril) 20 mg PO DAILY NICOLE Stop: 11/14/17 08:59 Last Admin: 09/21/17 08:36 Dose: 20 mg Lorazepam (Ativan) 0.5 mg PO Q4HR PRN; Protocol PRN Reason: Anxiety Stop: 10/14/17 22:44 Last Admin: 09/21/17 08:37 Dose: 0.5 mg Magnesium Hydroxide (Milk Of Magnesia) 30 ml PO HS PRN PRN Reason: Constipation Stop: 11/13/17 22:40 Metoprolol Tartrate (Lopressor) 25 mg PO DAILY [facility] Stop: 11/14/17 08:59 Last Admin: 09/21/17 08:37 Dose: 25 mg Olanzapine (Zyprexa) 22.5 mg PO DAILY [facility]; Protocol Stop: 11/18/17 08:59 Last Admin: 09/21/17 08:36 Dose: 22.5 mg Sodium Chloride (Nacl Tab) 1 gm PO TID NICOLE Stop: 11/14/17 08:59 Last Admin: 09/21/17 08:37 Dose: 1 gm Zolpidem Tartrate (Ambien) 5 mg PO HS PRN PRN Reason: Insomnia Stop: 11/13/17 22:44 Last Admin: 09/20/17 21:59 Dose: 5 mg General: alert HEENT: NC/AT, PERRLA Neck: Supple Lungs: CTAB Cardiovascular: RRR, Normal S1, Normal S2, without murmur Abdomen: soft, non-tender, non-distended, positive bowel sound Extremities: excoriation Neurological: alert - Procedures Procedures: Procedures Procedure Code Date APPENDECTOMY ADD-ON 75682 08/04/15 BYPASS TRANSVERSE COLON TO CUTANEOUS, OPEN APPROACH [id number] 08/04/15 COLOSTOMY 51139 08/04/15 EXCISION OF LARGE INTESTINE, OPEN APPROACH [id number] 08/04/15 GROUP PSYCHOTHERAPY 76949 07/31/15 GROUP PSYCHOTHERAPY GZHZZZZ 07/31/15 GROUP PSYCHOTHERAPY 78222 04/02/15 GROUP PSYCHOTHERAPY GZHZZZZ 04/02/15 OTHER GROUP THERAPY 94.44 11/07/14 PARTIAL REMOVAL OF COLON 12292 08/04/15 RECREATIONAL THERAPY 93.81 02/21/10 RESECTION OF APPENDIX, OPEN APPROACH [id number] 08/04/15 Internal Medicine Assmt/Plan - Assessment Assessment: MRSA NARES htn hypothyroidism diverting colostomy dmenetia obesity anemia hyponatremia hyperglycemia - Plan Plan: cont with bactroban fall precautions continue current plan of care Nutritional Asmnt/Malnutr-PDOC - Dietary Evaluation Malnutrition Findings (Please click <Entered> for more info): Nutritional Asmnt/Malnutrition Start: 09/18/17 14: 05 Text: Status: Complete Freq: Protocol: Document 09/18/17 14:06 EDWIN (Rec: 09/18/17 14:22 EDWIN [email or web address]) Nutritional Asmnt/Malnutrition Patient General Information Nutritional Screening Moderate Risk Diagnosis psychosis Pertinent Medical Hx/Surgical Hx HTN, thyroid disorder, cardiomegaly, hypothyroidism, rectal prolapse, femal geital prolapse, hyponatremia, schizophrenia, ptosis, schizophrenia Subjective Information Per EMR, PO intake 100% of meals. Per nurse note, pt was confused and rambling, difficult to understand her. Current Diet Order/ Nutrition Support [facility] soft ground Pertinent Medications levothyroixine, nacl Pertinent Labs 09/17 Na 132, Cr 0.5, glucose 98 09/14 Na 124, Cl 91, Cr 0.5, glucose 106, A1c 5.8 Nutritional Hx/Data Height 6 ft 3 in Height (Calculated Centimeters) 190.5 Current Weight (lbs) 149 lb Weight (Calculated Kilograms) 67.6 Weight (Calculated Grams) 27133.3 [place] Body Weight 196 Body Mass Index (BMI) 18.6 Weight Status Approriate GI Symptoms GI Symptoms None Last BM 09/16 Difficult in: None Skin Integrity/Comment: dryness, Fabrizio 19 Current %PO Good (75-100%) Estimated Nutritional Goals BEE in Kcals: Using Current wt Calories/Kcals/Kg 27-32 Kcals Calculated 2306-6049 Protein: Using Current wt Protein g/k-1.2 Protein Calculated 68-82 Fluid: ml 1836-2176ml (1ml/kcal) Nutritional Problem No current Nutrition Prob Problem N/A Malnutrition Alert Is there a minimum of two criteria No selected? Query Text:Check all the applicable criteria. A minimum of two criteria are recommended for diagnosis of either severe or non-severe malnutrition. Malnutrition Related to Morbid Obesity Malnutrition related to morbid obesity No Intervention/Recommendation Comments 1. Continue with [facility] soft ground diet as ordered. 2. Monitor PO intake, wt, labs and skin integrity 3. F/U as low risk in 7 days, 09/25 Expected Outcomes/Goals Expected Outcomes/Goals 1. PO intake to meet at least 75% of nutritional needs. 2. Wt stability, skin to remain intact, labs to approach WNL.
--- NOTE | 2017-09-21 20:34 | Progress Notes ---
DATE: 09/21/2017 Case was discussed with staff of the patient, reviewed records. The patient continues to be unpredictable, impulsive, rambling speech and needing redirection. Continues to have poor insight. She continues to be easily agitated, urinating on the floor, very inappropriate. She tolerated the increase in olanzapine with no side effects, no sedation, no nausea, no extrapyramidal symptoms. I will continue to work with the patient in group therapy, milieu therapy, and adjust medications as needed. JOB# [id number]
[2017-09-22] MEDS: Atorvastatin Calcium 10 MG TAB PO SCH (08:24)
--- NOTE | 2017-09-22 12:30 | Internal Medicine Prog Note ---
Internal Medicine Subjective - Subjective Service Date: 09/22/17 Patient is:: awake, verbal, interactive, agitated Patient Complaints of:: congestion Per staff patient has:: no adverse event, no episodes of fall, poor appetite, tolerating meds Internal Medicine Objective - Results Result Diagrams: 09/17/17 07:20 09/17/17 07:20 Recent Labs: Laboratory Last Values WBC 4.3 Th/cmm (4.8-10.8) L 09/17/17 07:20 RBC 4.11 Mil/cmm (3.80-5.20) 09/17/17 07:20 Hgb 12.1 gm/dL (12-16) 09/17/17 07:20 Hct 35.1 % (41.0-60) L 09/17/17 07:20 MCV 85.3 fl (81-100) 09/17/17 07:20 MCH 29.5 pg (27.0-31.0) 09/17/17 07:20 MCHC Differential 34.6 pg (28.0-36.0) 09/17/17 07:20 RDW 12.1 % (11.5-20.0) 09/17/17 07:20 Plt Count 257 Th/cmm (150-400) 09/17/17 07:20 MPV 7.4 fl 09/17/17 07:20 Neutrophils % 47.3 % (40.0-80.0) 09/17/17 07:20 Lymphocytes % 38.6 % (20.0-50.0) 09/17/17 07:20 Monocytes % 10.2 % (2.0-10.0) H 09/17/17 07:20 Eosinophils % 2.5 % (0.0-5.0) 09/17/17 07:20 Basophils % 1.4 % (0.0-2.0) 09/17/17 07:20 Sodium 132 mEq/L (136-145) L 09/17/17 07:20 Potassium 4.1 mEq/L (3.5-5.1) 09/17/17 07:20 Chloride 98 mEq/L (98-107) 09/17/17 07:20 Carbon Dioxide 27.6 mEq/L (21.0-31.0) 09/17/17 07:20 Anion Gap 10.5 (7.0-16.0) 09/17/17 07:20 BUN 12 mg/dL (7-25) 09/17/17 07:20 Creatinine 0.5 mg/dL (0.6-1.2) L 09/17/17 07:20 Est GFR ( Amer) TNP 09/17/17 07:20 Est GFR (Non-Af Amer) TNP 09/17/17 07:20 BUN/Creatinine Ratio 24.0 09/17/17 07:20 Glucose 98 mg/dL (70-105) 09/17/17 07:20 Hemoglobin A1c % 5.8 % (4.0-6.0) 09/14/17 19:15 Calcium 9.5 mg/dL (8.6-10.3) 09/17/17 07:20 Total Bilirubin 0.4 mg/dL (0.3-1.0) 09/14/17 19:15 AST 16 U/L (13-39) 09/14/17 19:15 ALT 11 U/L (7-52) 09/14/17 19:15 Alkaline Phosphatase 94 U/L (34-104) 09/14/17 19:15 Total Protein 8.1 gm/dL (6.0-8.3) 09/14/17 19:15 Albumin 4.4 gm/dL (3.7-5.3) 09/14/17 19:15 Globulin 3.7 gm/dL 09/14/17 19:15 Albumin/Globulin Ratio 1.2 (1.0-1.8) 09/14/17 19:15 Triglycerides 267 mg/dL (<150) H 09/14/17 19:15 Cholesterol 232 mg/dL (<200) H 09/14/17 19:15 LDL Cholesterol Direct 154 mg/dL (75-193) 09/14/17 19:15 HDL Cholesterol 52 mg/dL (23-92) 09/14/17 19:15 TSH 0.80 uIU/ml (0.34-5.60) 09/14/17 19:15 Urine Source CLEAN C 09/14/17 19:20 Urine Color YELLOW 09/14/17 19:20 Urine Clarity CLEAR (CLEAR) 09/14/17 19:20 Urine pH 5.5 (4.6 - 8.0) 09/14/17 19:20 Ur Specific [place] <= 1.005 (1.005-1.030) 09/14/17 19:20 Urine Protein NEGATIVE mg/dL (NEGATIVE) 09/14/17 19:20 Urine Glucose (UA) NEGATIVE mg/dL (NEGATIVE) 09/14/17 19:20 Urine Ketones NEGATIVE mg/dL (NEGATIVE) 09/14/17 19:20 Urine Blood NEGATIVE (NEGATIVE) 09/14/17 19:20 Urine Nitrate NEGATIVE (NEGATIVE) 09/14/17 19:20 Urine Bilirubin NEGATIVE (NEGATIVE) 09/14/17 19:20 Urine Urobilinogen 0.2 E.U./dL (0.2 - 1.0) 09/14/17 19:20 Ur Leukocyte Esterase TRACE (NEGATIVE) H 09/14/17 19:20 Urine RBC 0-2 /hpf (0-5) 09/14/17 19:20 Urine WBC 0-2 /hpf (0-5) 09/14/17 19:20 Ur Epithelial Cells OCCASIONAL /lpf (FEW) 09/14/17 19:20 Urine Bacteria NONE SEEN /hpf (NONE SEEN) 09/14/17 19:20 RPR NONREACTIVE (NONREACTIVE) 09/14/17 19:15 - Physical Exam Vitals and I&O: Vital Signs Temp 97.7 F 09/21/17 06:12 Pulse 92 09/22/17 08:26 Resp 19 09/21/17 06:12 BP 121/73 09/22/17 08:26 Pulse Ox 98 09/21/17 06:12 Intake & Output 09/21/17 09/22/17 09/22/17 18:59 06:59 18:59 Intake Total 1200 Balance 1200 Intake: Oral 1200 Other: # Voids 4 Stool Characteristics Soft Soft Formed Formed Active Medications: Current Medications Acetaminophen (Tylenol) 650 mg PO Q4HR PRN PRN Reason: Pain or Fever >101 Stop: 11/13/17 22:40 Atorvastatin Calcium (Lipitor) 20 mg PO DAILY NICOLE; Protocol Stop: 11/14/17 12:44 Last Admin: 09/22/17 08:24 Dose: 20 mg Docusate Sodium (Colace) 100 mg PO BID NICOLE Stop: 11/14/17 08:59 Last Admin: 09/22/17 08:27 Dose: 100 mg Levothyroxine Sodium 0.1 mg/ (Levothyroxine Sodium 0.025 mg) 0.125 mg PO QDAC [facility] Stop: 11/17/17 07:29 Last Admin: 09/22/17 07:01 Dose: 0.125 mg Lisinopril (Zestril) 20 mg PO DAILY NICOLE Stop: 11/14/17 08:59 Last Admin: 09/22/17 08:26 Dose: 20 mg Lorazepam (Ativan) 0.5 mg PO Q4HR PRN; Protocol PRN Reason: Anxiety Stop: 10/14/17 22:44 Last Admin: 09/22/17 08:24 Dose: 0.5 mg Magnesium Hydroxide (Milk Of Magnesia) 30 ml PO HS PRN PRN Reason: Constipation Stop: 11/13/17 22:40 Metoprolol Tartrate (Lopressor) 25 mg PO DAILY NICOLE Stop: 11/14/17 08:59 Last Admin: 09/22/17 08:25 Dose: 25 mg Olanzapine 20 mg/ Olanzapine 2 (.5 mg) 22.5 mg PO DAILY [facility] Stop: 11/22/17 08:59 Sodium Chloride (Nacl Tab) 1 gm PO TID NICOLE Stop: 11/14/17 08:59 Last Admin: 09/22/17 08:27 Dose: 1 gm Zolpidem Tartrate (Ambien) 5 mg PO HS PRN PRN Reason: Insomnia Stop: 11/13/17 22:44 Last Admin: 09/20/17 21:59 Dose: 5 mg General: alert HEENT: NC/AT, PERRLA Neck: Supple Lungs: CTAB Cardiovascular: RRR, Normal S1, Normal S2, without murmur Abdomen: soft, non-tender, non-distended, positive bowel sound Extremities: excoriation Neurological: alert - Procedures Procedures: Procedures Procedure Code Date APPENDECTOMY ADD-ON 08628 08/04/15 BYPASS TRANSVERSE COLON TO CUTANEOUS, OPEN APPROACH [id number] 08/04/15 COLOSTOMY 37456 08/04/15 EXCISION OF LARGE INTESTINE, OPEN APPROACH [id number] 08/04/15 GROUP PSYCHOTHERAPY 94570 07/31/15 GROUP PSYCHOTHERAPY GZHZZZZ 07/31/15 GROUP PSYCHOTHERAPY 74891 04/02/15 GROUP PSYCHOTHERAPY GZHZZZZ 04/02/15 OTHER GROUP THERAPY 94.44 11/07/14 PARTIAL REMOVAL OF COLON 85159 08/04/15 RECREATIONAL THERAPY 93.81 02/21/10 RESECTION OF APPENDIX, OPEN APPROACH [id number] 08/04/15 Internal Medicine Assmt/Plan - Assessment Assessment: MRSA NARES htn hypothyroidism diverting colostomy dmenetia obesity anemia hyponatremia hyperglycemia - Plan Plan: cont with bactroban fall precautions continue current plan of care Nutritional Asmnt/Malnutr-PDOC - Dietary Evaluation Malnutrition Findings (Please click <Entered> for more info): Nutritional Asmnt/Malnutrition Start: 09/18/17 14: 05 Text: Status: Complete Freq: Protocol: Document 09/18/17 14:06 LCHENG (Rec: 09/18/17 14:22 LCHENG [email or web address]) Nutritional Asmnt/Malnutrition Patient General Information Nutritional Screening Moderate Risk Diagnosis psychosis Pertinent Medical Hx/Surgical Hx HTN, thyroid disorder, cardiomegaly, hypothyroidism, rectal prolapse, femal geital prolapse, hyponatremia, schizophrenia, ptosis, schizophrenia Subjective Information Per EMR, PO intake 100% of meals. Per nurse note, pt was confused and rambling, difficult to understand her. Current Diet Order/ Nutrition Support [facility] soft ground Pertinent Medications levothyroixine, nacl Pertinent Labs 09/17 Na 132, Cr 0.5, glucose 98 09/14 Na 124, Cl 91, Cr 0.5, glucose 106, A1c 5.8 Nutritional Hx/Data Height 6 ft 3 in Height (Calculated Centimeters) 190.5 Current Weight (lbs) 149 lb Weight (Calculated Kilograms) 67.6 Weight (Calculated Grams) 13040.3 [place] Body Weight 196 Body Mass Index (BMI) 18.6 Weight Status Approriate GI Symptoms GI Symptoms None Last BM 09/16 Difficult in: None Skin Integrity/Comment: dryness, Fabrizio 19 Current %PO Good (75-100%) Estimated Nutritional Goals BEE in Kcals: Using Current wt Calories/Kcals/Kg 27-32 Kcals Calculated 0690-9034 Protein: Using Current wt Protein g/k-1.2 Protein Calculated 68-82 Fluid: ml 1836-2176ml (1ml/kcal) Nutritional Problem No current Nutrition Prob Problem N/A Malnutrition Alert Is there a minimum of two criteria No selected? Query Text:Check all the applicable criteria. A minimum of two criteria are recommended for diagnosis of either severe or non-severe malnutrition. Malnutrition Related to Morbid Obesity Malnutrition related to morbid obesity No Intervention/Recommendation Comments 1. Continue with [facility] soft ground diet as ordered. 2. Monitor PO intake, wt, labs and skin integrity 3. F/U as low risk in 7 days, 09/25 Expected Outcomes/Goals Expected Outcomes/Goals 1. PO intake to meet at least 75% of nutritional needs. 2. Wt stability, skin to remain intact, labs to approach WNL.
--- NOTE | 2017-09-23 02:34 | Progress Notes ---
DATE: 09/22/2017 SUMMARY: Case was discussed with staff of the patient and reviewed records. The patient continues to have episodes of extreme agitation, irritability, urinating on the floor, hard to redirect, rambling speech, unpredictable, impulsive, hard to redirect. She appears to be responding to internal stimuli with variation in her sleep and appetite. She continues to be unable to make safe plan for her self-care. No side effects to the medications, no sedation, no nausea, no extrapyramidal symptoms. We will continue to have the patient in group therapy, milieu therapy, and adjust medications as needed. JOB# [id number]
[2017-09-23] MEDS: Atorvastatin Calcium 10 MG TAB PO SCH (09:45)
[2017-09-23] MEDS: OLANZAPINE PO SCH (09:45)
--- NOTE | 2017-09-23 13:52 | Internal Medicine Prog Note ---
Internal Medicine Subjective - Subjective Patient seen and examined:: with staff, chart reviewed Patient is:: awake, verbal, interactive, agitated Patient Complaints of:: congestion Per staff patient has:: no adverse event, no episodes of fall, poor appetite, tolerating meds Internal Medicine Objective - Results Result Diagrams: 09/17/17 07:20 09/17/17 07:20 Recent Labs: Laboratory Last Values WBC 4.3 Th/cmm (4.8-10.8) L 09/17/17 07:20 RBC 4.11 Mil/cmm (3.80-5.20) 09/17/17 07:20 Hgb 12.1 gm/dL (12-16) 09/17/17 07:20 Hct 35.1 % (41.0-60) L 09/17/17 07:20 MCV 85.3 fl (81-100) 09/17/17 07:20 MCH 29.5 pg (27.0-31.0) 09/17/17 07:20 MCHC Differential 34.6 pg (28.0-36.0) 09/17/17 07:20 RDW 12.1 % (11.5-20.0) 09/17/17 07:20 Plt Count 257 Th/cmm (150-400) 09/17/17 07:20 MPV 7.4 fl 09/17/17 07:20 Neutrophils % 47.3 % (40.0-80.0) 09/17/17 07:20 Lymphocytes % 38.6 % (20.0-50.0) 09/17/17 07:20 Monocytes % 10.2 % (2.0-10.0) H 09/17/17 07:20 Eosinophils % 2.5 % (0.0-5.0) 09/17/17 07:20 Basophils % 1.4 % (0.0-2.0) 09/17/17 07:20 Sodium 132 mEq/L (136-145) L 09/17/17 07:20 Potassium 4.1 mEq/L (3.5-5.1) 09/17/17 07:20 Chloride 98 mEq/L (98-107) 09/17/17 07:20 Carbon Dioxide 27.6 mEq/L (21.0-31.0) 09/17/17 07:20 Anion Gap 10.5 (7.0-16.0) 09/17/17 07:20 BUN 12 mg/dL (7-25) 09/17/17 07:20 Creatinine 0.5 mg/dL (0.6-1.2) L 09/17/17 07:20 Est GFR ( Amer) TNP 09/17/17 07:20 Est GFR (Non-Af Amer) TNP 09/17/17 07:20 BUN/Creatinine Ratio 24.0 09/17/17 07:20 Glucose 98 mg/dL (70-105) 09/17/17 07:20 Hemoglobin A1c % 5.8 % (4.0-6.0) 09/14/17 19:15 Calcium 9.5 mg/dL (8.6-10.3) 09/17/17 07:20 Total Bilirubin 0.4 mg/dL (0.3-1.0) 09/14/17 19:15 AST 16 U/L (13-39) 09/14/17 19:15 ALT 11 U/L (7-52) 09/14/17 19:15 Alkaline Phosphatase 94 U/L (34-104) 09/14/17 19:15 Total Protein 8.1 gm/dL (6.0-8.3) 09/14/17 19:15 Albumin 4.4 gm/dL (3.7-5.3) 09/14/17 19:15 Globulin 3.7 gm/dL 09/14/17 19:15 Albumin/Globulin Ratio 1.2 (1.0-1.8) 09/14/17 19:15 Triglycerides 267 mg/dL (<150) H 09/14/17 19:15 Cholesterol 232 mg/dL (<200) H 09/14/17 19:15 LDL Cholesterol Direct 154 mg/dL (75-193) 09/14/17 19:15 HDL Cholesterol 52 mg/dL (23-92) 09/14/17 19:15 TSH 0.80 uIU/ml (0.34-5.60) 09/14/17 19:15 Urine Source CLEAN C 09/14/17 19:20 Urine Color YELLOW 09/14/17 19:20 Urine Clarity CLEAR (CLEAR) 09/14/17 19:20 Urine pH 5.5 (4.6 - 8.0) 09/14/17 19:20 Ur Specific [place] <= 1.005 (1.005-1.030) 09/14/17 19:20 Urine Protein NEGATIVE mg/dL (NEGATIVE) 09/14/17 19:20 Urine Glucose (UA) NEGATIVE mg/dL (NEGATIVE) 09/14/17 19:20 Urine Ketones NEGATIVE mg/dL (NEGATIVE) 09/14/17 19:20 Urine Blood NEGATIVE (NEGATIVE) 09/14/17 19:20 Urine Nitrate NEGATIVE (NEGATIVE) 09/14/17 19:20 Urine Bilirubin NEGATIVE (NEGATIVE) 09/14/17 19:20 Urine Urobilinogen 0.2 E.U./dL (0.2 - 1.0) 09/14/17 19:20 Ur Leukocyte Esterase TRACE (NEGATIVE) H 09/14/17 19:20 Urine RBC 0-2 /hpf (0-5) 09/14/17 19:20 Urine WBC 0-2 /hpf (0-5) 09/14/17 19:20 Ur Epithelial Cells OCCASIONAL /lpf (FEW) 09/14/17 19:20 Urine Bacteria NONE SEEN /hpf (NONE SEEN) 09/14/17 19:20 RPR NONREACTIVE (NONREACTIVE) 09/14/17 19:15 - Physical Exam Vitals and I&O: Vital Signs Temp 97.6 F 09/23/17 06:21 Pulse 82 09/23/17 09:46 Resp 20 09/23/17 06:21 BP 129/61 09/23/17 09:46 Pulse Ox 94 09/23/17 06:21 Intake & Output 09/22/17 09/23/17 09/23/17 18:59 06:59 18:59 Intake Total 1000 Balance 1000 Intake: Oral 1000 Other: # Voids 4 # Bowel Movements 1 Stool Characteristics Soft Soft Soft Formed Formed Formed Active Medications: Current Medications Acetaminophen (Tylenol) 650 mg PO Q4HR PRN PRN Reason: Pain or Fever >101 Stop: 11/13/17 22:40 Atorvastatin Calcium (Lipitor) 20 mg PO DAILY NICOLE; Protocol Stop: 11/14/17 12:44 Last Admin: 09/23/17 09:45 Dose: 20 mg Docusate Sodium (Colace) 100 mg PO BID NICOLE Stop: 11/14/17 08:59 Last Admin: 09/23/17 09:46 Dose: 100 mg Levothyroxine Sodium 0.1 mg/ (Levothyroxine Sodium 0.025 mg) 0.125 mg PO QDAC NICOLE Stop: 11/17/17 07:29 Last Admin: 09/23/17 06:47 Dose: 0.125 mg Lisinopril (Zestril) 20 mg PO DAILY NICOLE Stop: 11/14/17 08:59 Last Admin: 09/23/17 09:44 Dose: 20 mg Lorazepam (Ativan) 0.5 mg PO Q4HR PRN; Protocol PRN Reason: Anxiety Stop: 10/14/17 22:44 Last Admin: 09/22/17 20:36 Dose: 0.5 mg Magnesium Hydroxide (Milk Of Magnesia) 30 ml PO HS PRN PRN Reason: Constipation Stop: 11/13/17 22:40 Metoprolol Tartrate (Lopressor) 25 mg PO DAILY NICOLE Stop: 11/14/17 08:59 Last Admin: 09/23/17 09:46 Dose: 25 mg Olanzapine 20 mg/ Olanzapine 2 (.5 mg) 22.5 mg PO DAILY NICOLE Stop: 11/22/17 08:59 Last Admin: 09/23/17 09:45 Dose: 22.5 mg Sodium Chloride (Nacl Tab) 1 gm PO TID NICOLE Stop: 11/14/17 08:59 Last Admin: 09/23/17 09:46 Dose: 1 gm Zolpidem Tartrate (Ambien) 5 mg PO HS PRN PRN Reason: Insomnia Stop: 11/13/17 22:44 Last Admin: 09/22/17 23:48 Dose: 5 mg General: alert HEENT: NC/AT, PERRLA Neck: Supple Lungs: CTAB Cardiovascular: RRR, Normal S1, Normal S2, without murmur Abdomen: soft, non-tender, non-distended, positive bowel sound Extremities: excoriation Neurological: alert - Procedures Procedures: Procedures Procedure Code Date APPENDECTOMY ADD-ON 94937 08/04/15 BYPASS TRANSVERSE COLON TO CUTANEOUS, OPEN APPROACH [id number] 08/04/15 COLOSTOMY 53651 08/04/15 EXCISION OF LARGE INTESTINE, OPEN APPROACH [id number] 08/04/15 GROUP PSYCHOTHERAPY 79607 07/31/15 GROUP PSYCHOTHERAPY GZHZZZZ 07/31/15 GROUP PSYCHOTHERAPY 45338 04/02/15 GROUP PSYCHOTHERAPY GZHZZZZ 04/02/15 OTHER GROUP THERAPY 94.44 11/07/14 PARTIAL REMOVAL OF COLON 22456 08/04/15 RECREATIONAL THERAPY 93.81 02/21/10 RESECTION OF APPENDIX, OPEN APPROACH [id number] 08/04/15 Internal Medicine Assmt/Plan - Assessment Assessment: - Assessment Assessment: MRSA NARES htn hypothyroidism diverting colostomy dmenetia obesity anemia hyponatremia hyperglycemia - Plan Plan: cont with bactroban fall precautions continue current plan of care - Plan Plan: cpm Nutritional Asmnt/Malnutr-PDOC - Dietary Evaluation Malnutrition Findings (Please click <Entered> for more info): Nutritional Asmnt/Malnutrition Start: 09/18/17 14: 05 Text: Status: Complete Freq: Protocol: Document 09/18/17 14:06 EDWIN (Rec: 09/18/17 14:22 EDWIN [email or web address]) Nutritional Asmnt/Malnutrition Patient General Information Nutritional Screening Moderate Risk Diagnosis psychosis Pertinent Medical Hx/Surgical Hx HTN, thyroid disorder, cardiomegaly, hypothyroidism, rectal prolapse, femal geital prolapse, hyponatremia, schizophrenia, ptosis, schizophrenia Subjective Information Per EMR, PO intake 100% of meals. Per nurse note, pt was confused and rambling, difficult to understand her. Current Diet Order/ Nutrition Support mech soft ground Pertinent Medications levothyroixine, nacl Pertinent Labs 09/17 Na 132, Cr 0.5, glucose 98 09/14 Na 124, Cl 91, Cr 0.5, glucose 106, A1c 5.8 Nutritional Hx/Data Height 1.91 m Height (Calculated Centimeters) 190.5 Current Weight (lbs) 67.585 kg Weight (Calculated Kilograms) 67.6 Weight (Calculated Grams) 92549.3 [place] Body Weight 196 Body Mass Index (BMI) 18.6 Weight Status Approriate GI Symptoms GI Symptoms None Last BM 09/16 Difficult in: None Skin Integrity/Comment: dryness, Fabrizio 19 Current %PO Good (75-100%) Estimated Nutritional Goals BEE in Kcals: Using Current wt Calories/Kcals/Kg 27-32 Kcals Calculated 2725-5931 Protein: Using Current wt Protein g/k-1.2 Protein Calculated 68-82 Fluid: ml 1836-2176ml (1ml/kcal) Nutritional Problem No current Nutrition Prob Problem N/A Malnutrition Alert Is there a minimum of two criteria No selected? Query Text:Check all the applicable criteria. A minimum of two criteria are recommended for diagnosis of either severe or non-severe malnutrition. Malnutrition Related to Morbid Obesity Malnutrition related to morbid obesity No Intervention/Recommendation Comments 1. Continue with [facility] soft ground diet as ordered. 2. Monitor PO intake, wt, labs and skin integrity 3. F/U as low risk in 7 days, 09/25 Expected Outcomes/Goals Expected Outcomes/Goals 1. PO intake to meet at least 75% of nutritional needs. 2. Wt stability, skin to remain intact, labs to approach WNL.
--- NOTE | 2017-09-23 23:11 | Progress Notes ---
DATE: 09/23/2017 The patient coming from [place], agitated, walking naked in the hallway, yelling, screaming. Within the past 24 hours, the patient has had yelling episodes, screaming episodes, throwing water, very impulsive, unpredictable. The patient is refusing to speak with me this morning. Dr. Kaufman noting periods of extreme agitation, irritability. She has been sleeping fairly well. Some variations in her appetite. Slept for about 7 hours last night. ASSESSMENT: The patient is hard to understand, yelling, screaming, had been throwing water yesterday. PLAN: We will continue to monitor. Medications were noted. She remains still quite aggressive and acute, and not safe for a lower level of care. JOB# [id number]
--- NOTE | 2017-09-24 06:54 | Progress Notes ---
DATE: 09/24/2017 SUBJECTIVE: The patient in the hospital, slept for about 5-6 hours, remains disruptive, disorganized, yelling, screaming at times, sometimes not very cooperative, long psychiatric history, multiple and many psychiatric admissions. The patient with ongoing agitation episodes sometimes throwing water for example. Medications were noted including doses and frequencies. ASSESSMENT: The patient remains symptomatic, unruly at times, impulsive. PLAN: We will continue to monitor. We will titrate and adjust medications as tolerated. She remains symptomatic. The patient is to follow up with Dr. Kaufman in the morning. JOB# [id number]
[2017-09-24] MEDS: OLANZAPINE PO SCH (08:47)
[2017-09-24] MEDS: Atorvastatin Calcium 10 MG TAB PO SCH (08:47)
--- NOTE | 2017-09-24 12:28 | Internal Medicine Prog Note ---
Internal Medicine Subjective - Subjective Patient seen and examined:: with staff, chart reviewed Patient is:: awake, verbal, interactive, agitated Patient Complaints of:: congestion Per staff patient has:: no adverse event, no episodes of fall, poor appetite, tolerating meds Internal Medicine Objective - Results Result Diagrams: 09/17/17 07:20 09/17/17 07:20 Recent Labs: Laboratory Last Values WBC 4.3 Th/cmm (4.8-10.8) L 09/17/17 07:20 RBC 4.11 Mil/cmm (3.80-5.20) 09/17/17 07:20 Hgb 12.1 gm/dL (12-16) 09/17/17 07:20 Hct 35.1 % (41.0-60) L 09/17/17 07:20 MCV 85.3 fl (81-100) 09/17/17 07:20 MCH 29.5 pg (27.0-31.0) 09/17/17 07:20 MCHC Differential 34.6 pg (28.0-36.0) 09/17/17 07:20 RDW 12.1 % (11.5-20.0) 09/17/17 07:20 Plt Count 257 Th/cmm (150-400) 09/17/17 07:20 MPV 7.4 fl 09/17/17 07:20 Neutrophils % 47.3 % (40.0-80.0) 09/17/17 07:20 Lymphocytes % 38.6 % (20.0-50.0) 09/17/17 07:20 Monocytes % 10.2 % (2.0-10.0) H 09/17/17 07:20 Eosinophils % 2.5 % (0.0-5.0) 09/17/17 07:20 Basophils % 1.4 % (0.0-2.0) 09/17/17 07:20 Sodium 132 mEq/L (136-145) L 09/17/17 07:20 Potassium 4.1 mEq/L (3.5-5.1) 09/17/17 07:20 Chloride 98 mEq/L (98-107) 09/17/17 07:20 Carbon Dioxide 27.6 mEq/L (21.0-31.0) 09/17/17 07:20 Anion Gap 10.5 (7.0-16.0) 09/17/17 07:20 BUN 12 mg/dL (7-25) 09/17/17 07:20 Creatinine 0.5 mg/dL (0.6-1.2) L 09/17/17 07:20 Est GFR ( Amer) TNP 09/17/17 07:20 Est GFR (Non-Af Amer) TNP 09/17/17 07:20 BUN/Creatinine Ratio 24.0 09/17/17 07:20 Glucose 98 mg/dL (70-105) 09/17/17 07:20 Hemoglobin A1c % 5.8 % (4.0-6.0) 09/14/17 19:15 Calcium 9.5 mg/dL (8.6-10.3) 09/17/17 07:20 Total Bilirubin 0.4 mg/dL (0.3-1.0) 09/14/17 19:15 AST 16 U/L (13-39) 09/14/17 19:15 ALT 11 U/L (7-52) 09/14/17 19:15 Alkaline Phosphatase 94 U/L (34-104) 09/14/17 19:15 Total Protein 8.1 gm/dL (6.0-8.3) 09/14/17 19:15 Albumin 4.4 gm/dL (3.7-5.3) 09/14/17 19:15 Globulin 3.7 gm/dL 09/14/17 19:15 Albumin/Globulin Ratio 1.2 (1.0-1.8) 09/14/17 19:15 Triglycerides 267 mg/dL (<150) H 09/14/17 19:15 Cholesterol 232 mg/dL (<200) H 09/14/17 19:15 LDL Cholesterol Direct 154 mg/dL (75-193) 09/14/17 19:15 HDL Cholesterol 52 mg/dL (23-92) 09/14/17 19:15 TSH 0.80 uIU/ml (0.34-5.60) 09/14/17 19:15 Urine Source CLEAN C 09/14/17 19:20 Urine Color YELLOW 09/14/17 19:20 Urine Clarity CLEAR (CLEAR) 09/14/17 19:20 Urine pH 5.5 (4.6 - 8.0) 09/14/17 19:20 Ur Specific [place] <= 1.005 (1.005-1.030) 09/14/17 19:20 Urine Protein NEGATIVE mg/dL (NEGATIVE) 09/14/17 19:20 Urine Glucose (UA) NEGATIVE mg/dL (NEGATIVE) 09/14/17 19:20 Urine Ketones NEGATIVE mg/dL (NEGATIVE) 09/14/17 19:20 Urine Blood NEGATIVE (NEGATIVE) 09/14/17 19:20 Urine Nitrate NEGATIVE (NEGATIVE) 09/14/17 19:20 Urine Bilirubin NEGATIVE (NEGATIVE) 09/14/17 19:20 Urine Urobilinogen 0.2 E.U./dL (0.2 - 1.0) 09/14/17 19:20 Ur Leukocyte Esterase TRACE (NEGATIVE) H 09/14/17 19:20 Urine RBC 0-2 /hpf (0-5) 09/14/17 19:20 Urine WBC 0-2 /hpf (0-5) 09/14/17 19:20 Ur Epithelial Cells OCCASIONAL /lpf (FEW) 09/14/17 19:20 Urine Bacteria NONE SEEN /hpf (NONE SEEN) 09/14/17 19:20 RPR NONREACTIVE (NONREACTIVE) 09/14/17 19:15 - Physical Exam Vitals and I&O: Vital Signs Temp 99 F 09/24/17 05:32 Pulse 68 09/24/17 08:47 Resp 19 09/24/17 05:32 BP 134/71 09/24/17 08:47 Pulse Ox 96 09/24/17 05:32 Intake & Output 09/23/17 09/24/17 09/24/17 18:59 06:59 18:59 Intake Total 1000 Output Total 350 Balance 650 Intake: Oral 1000 Output: Stool 350 Other: # Voids 4 Stool Characteristics Soft Soft Soft Formed Formed Formed Active Medications: Current Medications Acetaminophen (Tylenol) 650 mg PO Q4HR PRN PRN Reason: Pain or Fever >101 Stop: 11/13/17 22:40 Atorvastatin Calcium (Lipitor) 20 mg PO DAILY NICOLE; Protocol Stop: 11/14/17 12:44 Last Admin: 09/24/17 08:47 Dose: 20 mg Docusate Sodium (Colace) 100 mg PO BID NICOLE Stop: 11/14/17 08:59 Last Admin: 09/24/17 08:48 Dose: 100 mg Levothyroxine Sodium 0.1 mg/ (Levothyroxine Sodium 0.025 mg) 0.125 mg PO QDAC NICOLE Stop: 11/17/17 07:29 Last Admin: 09/24/17 06:30 Dose: 0.125 mg Lisinopril (Zestril) 20 mg PO DAILY NICOLE Stop: 11/14/17 08:59 Last Admin: 09/24/17 08:47 Dose: 20 mg Lorazepam (Ativan) 0.5 mg PO Q4HR PRN; Protocol PRN Reason: Anxiety Stop: 10/14/17 22:44 Last Admin: 09/22/17 20:36 Dose: 0.5 mg Magnesium Hydroxide (Milk Of Magnesia) 30 ml PO HS PRN PRN Reason: Constipation Stop: 11/13/17 22:40 Metoprolol Tartrate (Lopressor) 25 mg PO DAILY NICOLE Stop: 11/14/17 08:59 Last Admin: 09/24/17 08:47 Dose: 25 mg Olanzapine 20 mg/ Olanzapine 2 (.5 mg) 22.5 mg PO DAILY NICOLE Stop: 11/22/17 08:59 Last Admin: 09/24/17 08:47 Dose: 22.5 mg Sodium Chloride (Nacl Tab) 1 gm PO TID NICOLE Stop: 11/14/17 08:59 Last Admin: 09/24/17 08:48 Dose: 1 gm Zolpidem Tartrate (Ambien) 5 mg PO HS PRN PRN Reason: Insomnia Stop: 11/13/17 22:44 Last Admin: 09/23/17 21:21 Dose: 5 mg General: alert HEENT: NC/AT, PERRLA Neck: Supple Lungs: CTAB Cardiovascular: RRR, Normal S1, Normal S2, without murmur Abdomen: soft, non-tender, non-distended, positive bowel sound Extremities: excoriation Neurological: alert - Procedures Procedures: Procedures Procedure Code Date APPENDECTOMY ADD-ON 64731 08/04/15 BYPASS TRANSVERSE COLON TO CUTANEOUS, OPEN APPROACH [id number] 08/04/15 COLOSTOMY 89805 08/04/15 EXCISION OF LARGE INTESTINE, OPEN APPROACH [id number] 08/04/15 GROUP PSYCHOTHERAPY 66101 07/31/15 GROUP PSYCHOTHERAPY GZHZZZZ 07/31/15 GROUP PSYCHOTHERAPY 90212 04/02/15 GROUP PSYCHOTHERAPY GZHZZZZ 04/02/15 OTHER GROUP THERAPY 94.44 11/07/14 PARTIAL REMOVAL OF COLON 79109 08/04/15 RECREATIONAL THERAPY 93.81 02/21/10 RESECTION OF APPENDIX, OPEN APPROACH [id number] 08/04/15 Internal Medicine Assmt/Plan - Assessment Assessment: - Assessment Assessment: MRSA NARES htn hypothyroidism diverting colostomy dmenetia obesity anemia hyponatremia hyperglycemia - Plan Plan: cont with bactroban fall precautions continue current plan of care - Plan Plan: cpm fall precaution Nutritional Asmnt/Malnutr-PDOC - Dietary Evaluation Malnutrition Findings (Please click <Entered> for more info): Nutritional Asmnt/Malnutrition Start: 09/18/17 14: 05 Text: Status: Complete Freq: Protocol: Document 09/18/17 14:06 EDWIN (Rec: 09/18/17 14:22 JANESSAG [email or web address]) Nutritional Asmnt/Malnutrition Patient General Information Nutritional Screening Moderate Risk Diagnosis psychosis Pertinent Medical Hx/Surgical Hx HTN, thyroid disorder, cardiomegaly, hypothyroidism, rectal prolapse, femal geital prolapse, hyponatremia, schizophrenia, ptosis, schizophrenia Subjective Information Per EMR, PO intake 100% of meals. Per nurse note, pt was confused and rambling, difficult to understand her. Current Diet Order/ Nutrition Support mech soft ground Pertinent Medications levothyroixine, nacl Pertinent Labs 09/17 Na 132, Cr 0.5, glucose 98 09/14 Na 124, Cl 91, Cr 0.5, glucose 106, A1c 5.8 Nutritional Hx/Data Height 1.91 m Height (Calculated Centimeters) 190.5 Current Weight (lbs) 67.585 kg Weight (Calculated Kilograms) 67.6 Weight (Calculated Grams) 45986.3 [place] Body Weight 196 Body Mass Index (BMI) 18.6 Weight Status Approriate GI Symptoms GI Symptoms None Last BM 09/16 Difficult in: None Skin Integrity/Comment: dryness, Fabrizio 19 Current %PO Good (75-100%) Estimated Nutritional Goals BEE in Kcals: Using Current wt Calories/Kcals/Kg 27-32 Kcals Calculated 4930-2888 Protein: Using Current wt Protein g/k-1.2 Protein Calculated 68-82 Fluid: ml 1836-2176ml (1ml/kcal) Nutritional Problem No current Nutrition Prob Problem N/A Malnutrition Alert Is there a minimum of two criteria No selected? Query Text:Check all the applicable criteria. A minimum of two criteria are recommended for diagnosis of either severe or non-severe malnutrition. Malnutrition Related to Morbid Obesity Malnutrition related to morbid obesity No Intervention/Recommendation Comments 1. Continue with [facility] soft ground diet as ordered. 2. Monitor PO intake, wt, labs and skin integrity 3. F/U as low risk in 7 days, 09/25 Expected Outcomes/Goals Expected Outcomes/Goals 1. PO intake to meet at least 75% of nutritional needs. 2. Wt stability, skin to remain intact, labs to approach WNL.
[2017-09-25] MEDS: OLANZAPINE PO SCH (08:29)
[2017-09-25] MEDS: Atorvastatin Calcium 10 MG TAB PO SCH (08:29)
--- NOTE | 2017-09-25 12:09 | Internal Medicine Prog Note ---
Internal Medicine Subjective - Subjective Service Date: 09/25/17 Patient is:: awake, verbal, interactive Patient Complaints of:: congestion Per staff patient has:: no adverse event, no episodes of fall, poor appetite, tolerating meds Internal Medicine Objective - Results Result Diagrams: 09/17/17 07:20 09/17/17 07:20 Recent Labs: Laboratory Last Values WBC 4.3 Th/cmm (4.8-10.8) L 09/17/17 07:20 RBC 4.11 Mil/cmm (3.80-5.20) 09/17/17 07:20 Hgb 12.1 gm/dL (12-16) 09/17/17 07:20 Hct 35.1 % (41.0-60) L 09/17/17 07:20 MCV 85.3 fl (81-100) 09/17/17 07:20 MCH 29.5 pg (27.0-31.0) 09/17/17 07:20 MCHC Differential 34.6 pg (28.0-36.0) 09/17/17 07:20 RDW 12.1 % (11.5-20.0) 09/17/17 07:20 Plt Count 257 Th/cmm (150-400) 09/17/17 07:20 MPV 7.4 fl 09/17/17 07:20 Neutrophils % 47.3 % (40.0-80.0) 09/17/17 07:20 Lymphocytes % 38.6 % (20.0-50.0) 09/17/17 07:20 Monocytes % 10.2 % (2.0-10.0) H 09/17/17 07:20 Eosinophils % 2.5 % (0.0-5.0) 09/17/17 07:20 Basophils % 1.4 % (0.0-2.0) 09/17/17 07:20 Sodium 132 mEq/L (136-145) L 09/17/17 07:20 Potassium 4.1 mEq/L (3.5-5.1) 09/17/17 07:20 Chloride 98 mEq/L (98-107) 09/17/17 07:20 Carbon Dioxide 27.6 mEq/L (21.0-31.0) 09/17/17 07:20 Anion Gap 10.5 (7.0-16.0) 09/17/17 07:20 BUN 12 mg/dL (7-25) 09/17/17 07:20 Creatinine 0.5 mg/dL (0.6-1.2) L 09/17/17 07:20 Est GFR ( Amer) TNP 09/17/17 07:20 Est GFR (Non-Af Amer) TNP 09/17/17 07:20 BUN/Creatinine Ratio 24.0 09/17/17 07:20 Glucose 98 mg/dL (70-105) 09/17/17 07:20 Hemoglobin A1c % 5.8 % (4.0-6.0) 09/14/17 19:15 Calcium 9.5 mg/dL (8.6-10.3) 09/17/17 07:20 Total Bilirubin 0.4 mg/dL (0.3-1.0) 09/14/17 19:15 AST 16 U/L (13-39) 09/14/17 19:15 ALT 11 U/L (7-52) 09/14/17 19:15 Alkaline Phosphatase 94 U/L (34-104) 09/14/17 19:15 Total Protein 8.1 gm/dL (6.0-8.3) 09/14/17 19:15 Albumin 4.4 gm/dL (3.7-5.3) 09/14/17 19:15 Globulin 3.7 gm/dL 09/14/17 19:15 Albumin/Globulin Ratio 1.2 (1.0-1.8) 09/14/17 19:15 Triglycerides 267 mg/dL (<150) H 09/14/17 19:15 Cholesterol 232 mg/dL (<200) H 09/14/17 19:15 LDL Cholesterol Direct 154 mg/dL (75-193) 09/14/17 19:15 HDL Cholesterol 52 mg/dL (23-92) 09/14/17 19:15 TSH 0.80 uIU/ml (0.34-5.60) 09/14/17 19:15 Urine Source CLEAN C 09/14/17 19:20 Urine Color YELLOW 09/14/17 19:20 Urine Clarity CLEAR (CLEAR) 09/14/17 19:20 Urine pH 5.5 (4.6 - 8.0) 09/14/17 19:20 Ur Specific [place] <= 1.005 (1.005-1.030) 09/14/17 19:20 Urine Protein NEGATIVE mg/dL (NEGATIVE) 09/14/17 19:20 Urine Glucose (UA) NEGATIVE mg/dL (NEGATIVE) 09/14/17 19:20 Urine Ketones NEGATIVE mg/dL (NEGATIVE) 09/14/17 19:20 Urine Blood NEGATIVE (NEGATIVE) 09/14/17 19:20 Urine Nitrate NEGATIVE (NEGATIVE) 09/14/17 19:20 Urine Bilirubin NEGATIVE (NEGATIVE) 09/14/17 19:20 Urine Urobilinogen 0.2 E.U./dL (0.2 - 1.0) 09/14/17 19:20 Ur Leukocyte Esterase TRACE (NEGATIVE) H 09/14/17 19:20 Urine RBC 0-2 /hpf (0-5) 09/14/17 19:20 Urine WBC 0-2 /hpf (0-5) 09/14/17 19:20 Ur Epithelial Cells OCCASIONAL /lpf (FEW) 09/14/17 19:20 Urine Bacteria NONE SEEN /hpf (NONE SEEN) 09/14/17 19:20 RPR NONREACTIVE (NONREACTIVE) 09/14/17 19:15 - Physical Exam Vitals and I&O: Vital Signs Temp 97.5 F 09/25/17 06:09 Pulse 90 09/25/17 08:29 Resp 19 09/25/17 06:09 BP 138/81 09/25/17 08:29 Pulse Ox 97 09/25/17 06:09 Intake & Output 09/24/17 09/25/17 09/25/17 18:59 06:59 18:59 Intake Total 1200 360 Balance 1200 360 Intake: Oral 1200 360 Other: # Voids 4 2 # Bowel Movements 1 Stool Characteristics Soft Foamy Foamy Formed Active Medications: Current Medications Acetaminophen (Tylenol) 650 mg PO Q4HR PRN PRN Reason: Pain or Fever >101 Stop: 11/13/17 22:40 Atorvastatin Calcium (Lipitor) 20 mg PO DAILY NICOLE; Protocol Stop: 11/14/17 12:44 Last Admin: 09/25/17 08:29 Dose: 20 mg Docusate Sodium (Colace) 100 mg PO BID NICOLE Stop: 11/14/17 08:59 Last Admin: 09/25/17 08:28 Dose: 100 mg Levothyroxine Sodium 0.1 mg/ (Levothyroxine Sodium 0.025 mg) 0.125 mg PO QDAC NICOLE Stop: 11/17/17 07:29 Last Admin: 09/25/17 06:37 Dose: 0.125 mg Lisinopril (Zestril) 20 mg PO DAILY NICOLE Stop: 11/14/17 08:59 Last Admin: 09/25/17 08:28 Dose: 20 mg Lorazepam (Ativan) 0.5 mg PO Q4HR PRN; Protocol PRN Reason: Anxiety Stop: 10/14/17 22:44 Last Admin: 09/22/17 20:36 Dose: 0.5 mg Magnesium Hydroxide (Milk Of Magnesia) 30 ml PO HS PRN PRN Reason: Constipation Stop: 11/13/17 22:40 Metoprolol Tartrate (Lopressor) 25 mg PO DAILY NICOLE Stop: 11/14/17 08:59 Last Admin: 09/25/17 08:29 Dose: 25 mg Olanzapine 20 mg/ Olanzapine 2 (.5 mg) 22.5 mg PO DAILY NICOLE Stop: 11/22/17 08:59 Last Admin: 09/25/17 08:29 Dose: 22.5 mg Sodium Chloride (Nacl Tab) 1 gm PO TID NICOLE Stop: 11/14/17 08:59 Last Admin: 09/25/17 08:29 Dose: 1 gm Zolpidem Tartrate (Ambien) 5 mg PO HS PRN PRN Reason: Insomnia Stop: 11/13/17 22:44 Last Admin: 09/23/17 21:21 Dose: 5 mg General: alert HEENT: NC/AT, PERRLA Neck: Supple Lungs: CTAB Cardiovascular: RRR, Normal S1, Normal S2, without murmur Abdomen: soft, non-tender, non-distended, positive bowel sound Extremities: excoriation Neurological: alert - Procedures Procedures: Procedures Procedure Code Date APPENDECTOMY ADD-ON 16099 08/04/15 BYPASS TRANSVERSE COLON TO CUTANEOUS, OPEN APPROACH [id number] 08/04/15 COLOSTOMY 53514 08/04/15 EXCISION OF LARGE INTESTINE, OPEN APPROACH [id number] 08/04/15 GROUP PSYCHOTHERAPY 73137 07/31/15 GROUP PSYCHOTHERAPY GZHZZZZ 07/31/15 GROUP PSYCHOTHERAPY 94986 04/02/15 GROUP PSYCHOTHERAPY GZHZZZZ 04/02/15 OTHER GROUP THERAPY 94.44 11/07/14 PARTIAL REMOVAL OF COLON 85004 08/04/15 RECREATIONAL THERAPY 93.81 02/21/10 RESECTION OF APPENDIX, OPEN APPROACH [id number] 08/04/15 Internal Medicine Assmt/Plan - Assessment Assessment: MRSA NARES htn hypothyroidism diverting colostomy dmenetia obesity anemia hyponatremia hyperglycemia - Plan Plan: fall precautions continue current plan of care Nutritional Asmnt/Malnutr-PDOC - Dietary Evaluation Malnutrition Findings (Please click <Entered> for more info): Nutritional Asmnt/Malnutrition Start: 09/18/17 14: 05 Text: Status: Complete Freq: Protocol: Document 09/18/17 14:06 EDWIN (Rec: 09/18/17 14:22 EDWIN [email or web address]) Nutritional Asmnt/Malnutrition Patient General Information Nutritional Screening Moderate Risk Diagnosis psychosis Pertinent Medical Hx/Surgical Hx HTN, thyroid disorder, cardiomegaly, hypothyroidism, rectal prolapse, femal geital prolapse, hyponatremia, schizophrenia, ptosis, schizophrenia Subjective Information Per EMR, PO intake 100% of meals. Per nurse note, pt was confused and rambling, difficult to understand her. Current Diet Order/ Nutrition Support [place] soft [place] Pertinent Medications levothyroixine, nacl Pertinent Labs 09/17 Na 132, Cr 0.5, glucose 98 09/14 Na 124, Cl 91, Cr 0.5, glucose 106, A1c 5.8 Nutritional Hx/Data Height 6 ft 3 in Height (Calculated Centimeters) 190.5 Current Weight (lbs) 149 lb Weight (Calculated Kilograms) 67.6 Weight (Calculated Grams) 33717.3 [place] Body Weight 196 Body Mass Index (BMI) 18.6 Weight Status Approriate GI Symptoms GI Symptoms None Last BM 09/16 Difficult in: None Skin Integrity/Comment: dryness, Fabrizio 19 Current %PO Good (75-100%) Estimated Nutritional Goals BEE in Kcals: Using Current wt Calories/Kcals/Kg 27-32 Kcals Calculated 8235-4644 Protein: Using Current wt Protein g/k-1.2 Protein Calculated 68-82 Fluid: ml 1836-2176ml (1ml/kcal) Nutritional Problem No current Nutrition Prob Problem N/A Malnutrition Alert Is there a minimum of two criteria No selected? Query Text:Check all the applicable criteria. A minimum of two criteria are recommended for diagnosis of either severe or non-severe malnutrition. Malnutrition Related to Morbid Obesity Malnutrition related to morbid obesity No Intervention/Recommendation Comments 1. Continue with [facility] soft ground diet as ordered. 2. Monitor PO intake, wt, labs and skin integrity 3. F/U as low risk in 7 days, 09/25 Expected Outcomes/Goals Expected Outcomes/Goals 1. PO intake to meet at least 75% of nutritional needs. 2. Wt stability, skin to remain intact, labs to approach WNL.
--- NOTE | 2017-09-25 21:38 | Progress Notes ---
DATE: 09/25/2017 SUBJECTIVE: Case was discussed with staff of the patient, reviewed records. The patient continues to be unpredictable, impulsive, needing redirection, psychotic, rambling speech, unable to make safe plan for self-care or participate in meaningful conversation. Continues to be unable to take care of herself, urinating on the floor. No side effects of the medication, no sedation, no nausea, and no extrapyramidal symptoms. The staff believes that she is also sundowning. I will be increasing her Zyprexa to 25 mg at bedtime. We will continue to work with the patient in group therapy, milieu therapy, and adjust the medications as needed. JOB# [id number]
[2017-09-26] MEDS: Atorvastatin Calcium 10 MG TAB PO SCH (08:26)
--- NOTE | 2017-09-26 11:54 | Internal Medicine Prog Note ---
Internal Medicine Subjective - Subjective Service Date: 09/26/17 Patient is:: awake, verbal, interactive Patient Complaints of:: congestion Per staff patient has:: no adverse event, no episodes of fall, poor appetite, tolerating meds Internal Medicine Objective - Results Result Diagrams: 09/17/17 07:20 09/17/17 07:20 Recent Labs: Laboratory Last Values WBC 4.3 Th/cmm (4.8-10.8) L 09/17/17 07:20 RBC 4.11 Mil/cmm (3.80-5.20) 09/17/17 07:20 Hgb 12.1 gm/dL (12-16) 09/17/17 07:20 Hct 35.1 % (41.0-60) L 09/17/17 07:20 MCV 85.3 fl (81-100) 09/17/17 07:20 MCH 29.5 pg (27.0-31.0) 09/17/17 07:20 MCHC Differential 34.6 pg (28.0-36.0) 09/17/17 07:20 RDW 12.1 % (11.5-20.0) 09/17/17 07:20 Plt Count 257 Th/cmm (150-400) 09/17/17 07:20 MPV 7.4 fl 09/17/17 07:20 Neutrophils % 47.3 % (40.0-80.0) 09/17/17 07:20 Lymphocytes % 38.6 % (20.0-50.0) 09/17/17 07:20 Monocytes % 10.2 % (2.0-10.0) H 09/17/17 07:20 Eosinophils % 2.5 % (0.0-5.0) 09/17/17 07:20 Basophils % 1.4 % (0.0-2.0) 09/17/17 07:20 Sodium 132 mEq/L (136-145) L 09/17/17 07:20 Potassium 4.1 mEq/L (3.5-5.1) 09/17/17 07:20 Chloride 98 mEq/L (98-107) 09/17/17 07:20 Carbon Dioxide 27.6 mEq/L (21.0-31.0) 09/17/17 07:20 Anion Gap 10.5 (7.0-16.0) 09/17/17 07:20 BUN 12 mg/dL (7-25) 09/17/17 07:20 Creatinine 0.5 mg/dL (0.6-1.2) L 09/17/17 07:20 Est GFR ( Amer) TNP 09/17/17 07:20 Est GFR (Non-Af Amer) TNP 09/17/17 07:20 BUN/Creatinine Ratio 24.0 09/17/17 07:20 Glucose 98 mg/dL (70-105) 09/17/17 07:20 Hemoglobin A1c % 5.8 % (4.0-6.0) 09/14/17 19:15 Calcium 9.5 mg/dL (8.6-10.3) 09/17/17 07:20 Total Bilirubin 0.4 mg/dL (0.3-1.0) 09/14/17 19:15 AST 16 U/L (13-39) 09/14/17 19:15 ALT 11 U/L (7-52) 09/14/17 19:15 Alkaline Phosphatase 94 U/L (34-104) 09/14/17 19:15 Total Protein 8.1 gm/dL (6.0-8.3) 09/14/17 19:15 Albumin 4.4 gm/dL (3.7-5.3) 09/14/17 19:15 Globulin 3.7 gm/dL 09/14/17 19:15 Albumin/Globulin Ratio 1.2 (1.0-1.8) 09/14/17 19:15 Triglycerides 267 mg/dL (<150) H 09/14/17 19:15 Cholesterol 232 mg/dL (<200) H 09/14/17 19:15 LDL Cholesterol Direct 154 mg/dL (75-193) 09/14/17 19:15 HDL Cholesterol 52 mg/dL (23-92) 09/14/17 19:15 TSH 0.80 uIU/ml (0.34-5.60) 09/14/17 19:15 Urine Source CLEAN C 09/14/17 19:20 Urine Color YELLOW 09/14/17 19:20 Urine Clarity CLEAR (CLEAR) 09/14/17 19:20 Urine pH 5.5 (4.6 - 8.0) 09/14/17 19:20 Ur Specific [place] <= 1.005 (1.005-1.030) 09/14/17 19:20 Urine Protein NEGATIVE mg/dL (NEGATIVE) 09/14/17 19:20 Urine Glucose (UA) NEGATIVE mg/dL (NEGATIVE) 09/14/17 19:20 Urine Ketones NEGATIVE mg/dL (NEGATIVE) 09/14/17 19:20 Urine Blood NEGATIVE (NEGATIVE) 09/14/17 19:20 Urine Nitrate NEGATIVE (NEGATIVE) 09/14/17 19:20 Urine Bilirubin NEGATIVE (NEGATIVE) 09/14/17 19:20 Urine Urobilinogen 0.2 E.U./dL (0.2 - 1.0) 09/14/17 19:20 Ur Leukocyte Esterase TRACE (NEGATIVE) H 09/14/17 19:20 Urine RBC 0-2 /hpf (0-5) 09/14/17 19:20 Urine WBC 0-2 /hpf (0-5) 09/14/17 19:20 Ur Epithelial Cells OCCASIONAL /lpf (FEW) 09/14/17 19:20 Urine Bacteria NONE SEEN /hpf (NONE SEEN) 09/14/17 19:20 RPR NONREACTIVE (NONREACTIVE) 09/14/17 19:15 - Physical Exam Vitals and I&O: Vital Signs Temp 98.1 F 09/26/17 06:17 Pulse 71 09/26/17 06:17 Resp 19 09/26/17 06:17 BP 100/61 09/26/17 06:17 Pulse Ox 99 09/26/17 06:17 Intake & Output 09/25/17 09/26/17 09/26/17 18:59 06:59 18:59 Intake Total 1200 Balance 1200 Intake: Oral 1200 Other: # Voids 4 Stool Characteristics Foamy Foamy Foamy Active Medications: Current Medications Acetaminophen (Tylenol) 650 mg PO Q4HR PRN PRN Reason: Pain or Fever >101 Stop: 11/13/17 22:40 Atorvastatin Calcium (Lipitor) 20 mg PO DAILY NICOLE; Protocol Stop: 11/14/17 12:44 Last Admin: 09/26/17 08:26 Dose: 20 mg Docusate Sodium (Colace) 100 mg PO BID NICOLE Stop: 11/14/17 08:59 Last Admin: 09/26/17 08:28 Dose: 100 mg Levothyroxine Sodium 0.1 mg/ (Levothyroxine Sodium 0.025 mg) 0.125 mg PO QDAC NICOLE Stop: 11/17/17 07:29 Last Admin: 09/26/17 06:46 Dose: 0.125 mg Lisinopril (Zestril) 20 mg PO DAILY NICOLE Stop: 11/14/17 08:59 Last Admin: 09/26/17 08:28 Dose: Not Given Lorazepam (Ativan) 0.5 mg PO Q4HR PRN; Protocol PRN Reason: Anxiety Stop: 10/14/17 22:44 Last Admin: 09/22/17 20:36 Dose: 0.5 mg Magnesium Hydroxide (Milk Of Magnesia) 30 ml PO HS PRN PRN Reason: Constipation Stop: 11/13/17 22:40 Metoprolol Tartrate (Lopressor) 25 mg PO DAILY NICOLE Stop: 11/14/17 08:59 Last Admin: 09/26/17 08:29 Dose: Not Given Olanzapine 20 mg/ Olanzapine 5 (mg) 25 mg PO DAILY NICOLE Stop: 11/25/17 08:59 Last Admin: 09/26/17 08:27 Dose: 25 mg Sodium Chloride (Nacl Tab) 1 gm PO TID NICOLE Stop: 11/14/17 08:59 Last Admin: 09/26/17 08:28 Dose: 1 gm Zolpidem Tartrate (Ambien) 5 mg PO HS PRN PRN Reason: Insomnia Stop: 11/13/17 22:44 Last Admin: 09/23/17 21:21 Dose: 5 mg General: alert HEENT: NC/AT, PERRLA Neck: Supple Lungs: CTAB Cardiovascular: RRR, Normal S1, Normal S2, without murmur Abdomen: soft, non-tender, non-distended, positive bowel sound Extremities: excoriation Neurological: alert - Procedures Procedures: Procedures Procedure Code Date APPENDECTOMY ADD-ON 61802 08/04/15 BYPASS TRANSVERSE COLON TO CUTANEOUS, OPEN APPROACH [id number] 08/04/15 COLOSTOMY 89887 08/04/15 EXCISION OF LARGE INTESTINE, OPEN APPROACH [id number] 08/04/15 GROUP PSYCHOTHERAPY 17412 07/31/15 GROUP PSYCHOTHERAPY GZHZZZZ 07/31/15 GROUP PSYCHOTHERAPY 86844 04/02/15 GROUP PSYCHOTHERAPY GZHZZZZ 01/14/16 OTHER GROUP THERAPY 94.44 11/07/14 PARTIAL REMOVAL OF COLON 45507 08/04/15 RECREATIONAL THERAPY 93.81 02/21/10 RESECTION OF APPENDIX, OPEN APPROACH [id number] 08/04/15 Internal Medicine Assmt/Plan - Assessment Assessment: MRSA NARES htn hypothyroidism diverting colostomy dmenetia obesity anemia hyponatremia hyperglycemia - Plan Plan: fall precautions continue current plan of care Nutritional Asmnt/Malnutr-PDOC - Dietary Evaluation Malnutrition Findings (Please click <Entered> for more info): Nutritional Asmnt/Malnutrition Start: 09/18/17 14: 05 Text: Status: Complete Freq: Protocol: Document 09/18/17 14:06 TATIANAG (Rec: 09/18/17 14:22 [email or web address]) Nutritional Asmnt/Malnutrition Patient General Information Nutritional Screening Moderate Risk Diagnosis psychosis Pertinent Medical Hx/Surgical Hx HTN, thyroid disorder, cardiomegaly, hypothyroidism, rectal prolapse, femal geital prolapse, hyponatremia, schizophrenia, ptosis, schizophrenia Subjective Information Per EMR, PO intake 100% of meals. Per nurse note, pt was confused and rambling, difficult to understand her. Current Diet Order/ [facility] Pertinent Medications levothyroixine, nacl Pertinent Labs 09/17 Na 132, Cr 0.5, glucose 98 09/14 Na 124, Cl 91, Cr 0.5, glucose 106, A1c 5.8 Nutritional Hx/Data Height 6 ft 3 in Height (Calculated Centimeters) 190.5 Current Weight (lbs) 149 lb Weight (Calculated Kilograms) 67.6 Weight (Calculated Grams) 31876.3 [place] Body Weight 196 Body Mass Index (BMI) 18.6 Weight Status Approriate GI Symptoms GI Symptoms None Last BM 09/16 Difficult in: None Skin Integrity/Comment: dryness, Fabrizio 19 Current %PO Good (75-100%) Estimated Nutritional Goals BEE in Kcals: Using Current wt Calories/Kcals/Kg 27-32 Kcals Calculated 8696-5985 Protein: Using Current wt Protein g/k-1.2 Protein Calculated 68-82 Fluid: ml 1836-2176ml (1ml/kcal) Nutritional Problem No current Nutrition Prob Problem N/A Malnutrition Alert Is there a minimum of two criteria No selected? Query Text:Check all the applicable criteria. A minimum of two criteria are recommended for diagnosis of either severe or non-severe malnutrition. Malnutrition Related to Morbid Obesity Malnutrition related to morbid obesity No Intervention/Recommendation Comments 1. Continue with [place] soft ground diet as ordered. 2. Monitor PO intake, wt, labs and skin integrity 3. F/U as low risk in 7 days, 09/25 Expected Outcomes/Goals Expected Outcomes/Goals 1. PO intake to meet at least 75% of nutritional needs. 2. Wt stability, skin to remain intact, labs to approach WNL.
--- NOTE | 2017-09-26 22:13 | Progress Notes ---
DATE: 09/26/2017 Case was discussed with staff of the patient. The patient continues to be rambling, continues to have poor insight, continues to be unpredictable, impulsive, looking disheveled, disorganized, internally preoccupied. I did increase Zyprexa dose yesterday with no side effects, no sedation, no nausea, no extrapyramidal symptoms and we will continue to work with the patient in group therapy, milieu therapy, and adjust medications as needed. JOB# [id number]
[2017-09-27] MEDS: Atorvastatin Calcium 10 MG TAB PO SCH (09:40)
[2017-09-27] MEDS ORDERED: Haloperidol Lactate 5 mg/mL 1mL Vial ONE (12:22)
[2017-09-27] MEDS ORDERED: Haloperidol Lactate 5 mg/mL 1mL Vial IM ONE (12:29)
--- NOTE | 2017-09-27 14:03 | Internal Medicine Prog Note ---
Internal Medicine Subjective - Subjective Service Date: 09/27/17 Patient is:: awake, verbal, interactive Patient Complaints of:: congestion Per staff patient has:: no adverse event, no episodes of fall, poor appetite, tolerating meds Internal Medicine Objective - Results Result Diagrams: 09/17/17 07:20 09/17/17 07:20 Recent Labs: Laboratory Last Values WBC 4.3 Th/cmm (4.8-10.8) L 09/17/17 07:20 RBC 4.11 Mil/cmm (3.80-5.20) 09/17/17 07:20 Hgb 12.1 gm/dL (12-16) 09/17/17 07:20 Hct 35.1 % (41.0-60) L 09/17/17 07:20 MCV 85.3 fl (81-100) 09/17/17 07:20 MCH 29.5 pg (27.0-31.0) 09/17/17 07:20 MCHC Differential 34.6 pg (28.0-36.0) 09/17/17 07:20 RDW 12.1 % (11.5-20.0) 09/17/17 07:20 Plt Count 257 Th/cmm (150-400) 09/17/17 07:20 MPV 7.4 fl 09/17/17 07:20 Neutrophils % 47.3 % (40.0-80.0) 09/17/17 07:20 Lymphocytes % 38.6 % (20.0-50.0) 09/17/17 07:20 Monocytes % 10.2 % (2.0-10.0) H 09/17/17 07:20 Eosinophils % 2.5 % (0.0-5.0) 09/17/17 07:20 Basophils % 1.4 % (0.0-2.0) 09/17/17 07:20 Sodium 132 mEq/L (136-145) L 09/17/17 07:20 Potassium 4.1 mEq/L (3.5-5.1) 09/17/17 07:20 Chloride 98 mEq/L (98-107) 09/17/17 07:20 Carbon Dioxide 27.6 mEq/L (21.0-31.0) 09/17/17 07:20 Anion Gap 10.5 (7.0-16.0) 09/17/17 07:20 BUN 12 mg/dL (7-25) 09/17/17 07:20 Creatinine 0.5 mg/dL (0.6-1.2) L 09/17/17 07:20 Est GFR ( Amer) TNP 09/17/17 07:20 Est GFR (Non-Af Amer) TNP 09/17/17 07:20 BUN/Creatinine Ratio 24.0 09/17/17 07:20 Glucose 98 mg/dL (70-105) 09/17/17 07:20 Hemoglobin A1c % 5.8 % (4.0-6.0) 09/14/17 19:15 Calcium 9.5 mg/dL (8.6-10.3) 09/17/17 07:20 Total Bilirubin 0.4 mg/dL (0.3-1.0) 09/14/17 19:15 AST 16 U/L (13-39) 09/14/17 19:15 ALT 11 U/L (7-52) 09/14/17 19:15 Alkaline Phosphatase 94 U/L (34-104) 09/14/17 19:15 Total Protein 8.1 gm/dL (6.0-8.3) 09/14/17 19:15 Albumin 4.4 gm/dL (3.7-5.3) 09/14/17 19:15 Globulin 3.7 gm/dL 09/14/17 19:15 Albumin/Globulin Ratio 1.2 (1.0-1.8) 09/14/17 19:15 Triglycerides 267 mg/dL (<150) H 09/14/17 19:15 Cholesterol 232 mg/dL (<200) H 09/14/17 19:15 LDL Cholesterol Direct 154 mg/dL (75-193) 09/14/17 19:15 HDL Cholesterol 52 mg/dL (23-92) 09/14/17 19:15 TSH 0.80 uIU/ml (0.34-5.60) 09/14/17 19:15 Urine Source CLEAN C 09/14/17 19:20 Urine Color YELLOW 09/14/17 19:20 Urine Clarity CLEAR (CLEAR) 09/14/17 19:20 Urine pH 5.5 (4.6 - 8.0) 09/14/17 19:20 Ur Specific [place] <= 1.005 (1.005-1.030) 09/14/17 19:20 Urine Protein NEGATIVE mg/dL (NEGATIVE) 09/14/17 19:20 Urine Glucose (UA) NEGATIVE mg/dL (NEGATIVE) 09/14/17 19:20 Urine Ketones NEGATIVE mg/dL (NEGATIVE) 09/14/17 19:20 Urine Blood NEGATIVE (NEGATIVE) 09/14/17 19:20 Urine Nitrate NEGATIVE (NEGATIVE) 09/14/17 19:20 Urine Bilirubin NEGATIVE (NEGATIVE) 09/14/17 19:20 Urine Urobilinogen 0.2 E.U./dL (0.2 - 1.0) 09/14/17 19:20 Ur Leukocyte Esterase TRACE (NEGATIVE) H 09/14/17 19:20 Urine RBC 0-2 /hpf (0-5) 09/14/17 19:20 Urine WBC 0-2 /hpf (0-5) 09/14/17 19:20 Ur Epithelial Cells OCCASIONAL /lpf (FEW) 09/14/17 19:20 Urine Bacteria NONE SEEN /hpf (NONE SEEN) 09/14/17 19:20 RPR NONREACTIVE (NONREACTIVE) 09/14/17 19:15 - Physical Exam Vitals and I&O: Vital Signs Temp 98.1 F 09/27/17 06:20 Pulse 97 09/27/17 09:41 Resp 18 09/27/17 06:20 BP 140/67 09/27/17 09:41 Pulse Ox 95 09/27/17 06:20 Intake & Output 09/26/17 09/27/17 09/27/17 18:59 06:59 18:59 Intake Total 240 Output Total 300 Balance -300 240 Intake: Oral 240 Output: Stool 300 Other: # Voids 3 2 # Bowel Movements 2 Stool Characteristics Foamy Foamy Foamy Active Medications: Current Medications Acetaminophen (Tylenol) 650 mg PO Q4HR PRN PRN Reason: Pain or Fever >101 Stop: 11/13/17 22:40 Atorvastatin Calcium (Lipitor) 20 mg PO DAILY [facility]; Protocol Stop: 11/14/17 12:44 Last Admin: 09/27/17 09:40 Dose: 20 mg Docusate Sodium (Colace) 100 mg PO BID [facility] Stop: 11/14/17 08:59 Last Admin: 09/27/17 09:41 Dose: 100 mg Levothyroxine Sodium 0.1 mg/ (Levothyroxine Sodium 0.025 mg) 0.125 mg PO QDAC [facility] Stop: 11/17/17 07:29 Last Admin: 09/27/17 06:34 Dose: 0.125 mg Lisinopril (Zestril) 20 mg PO DAILY [facility] Stop: 11/14/17 08:59 Last Admin: 09/27/17 09:40 Dose: 20 mg Lorazepam (Ativan) 0.5 mg PO Q4HR PRN; Protocol PRN Reason: Anxiety Stop: 10/14/17 22:44 Last Admin: 09/22/17 20:36 Dose: 0.5 mg Magnesium Hydroxide (Milk Of Magnesia) 30 ml PO HS PRN PRN Reason: Constipation Stop: 11/13/17 22:40 Metoprolol Tartrate (Lopressor) 25 mg PO DAILY [facility] Stop: 11/14/17 08:59 Last Admin: 09/27/17 09:41 Dose: 25 mg Olanzapine 20 mg/ Olanzapine 5 (mg) 25 mg PO DAILY [facility] Stop: 11/25/17 08:59 Last Admin: 09/27/17 09:41 Dose: 25 mg Sodium Chloride (Nacl Tab) 1 gm PO TID [facility] Stop: 11/14/17 08:59 Last Admin: 09/27/17 13:47 Dose: Not Given Zolpidem Tartrate (Ambien) 5 mg PO HS PRN PRN Reason: Insomnia Stop: 11/13/17 22:44 Last Admin: 09/23/17 21:21 Dose: 5 mg General: alert HEENT: NC/AT, PERRLA Neck: Supple Lungs: CTAB Cardiovascular: RRR, Normal S1, Normal S2, without murmur Abdomen: soft, non-tender, non-distended, positive bowel sound Extremities: excoriation Neurological: alert - Procedures Procedures: Procedures Procedure Code Date APPENDECTOMY ADD-ON 54070 08/04/15 BYPASS TRANSVERSE COLON TO CUTANEOUS, OPEN APPROACH [id number] 08/04/15 COLOSTOMY 47306 08/04/15 EXCISION OF LARGE INTESTINE, OPEN APPROACH [id number] 08/04/15 GROUP PSYCHOTHERAPY 97541 07/31/15 GROUP PSYCHOTHERAPY GZHZZZZ 07/31/15 GROUP PSYCHOTHERAPY 49549 04/02/15 GROUP PSYCHOTHERAPY GZHZZZZ 04/02/15 OTHER GROUP THERAPY 94.44 11/07/14 PARTIAL REMOVAL OF COLON 76301 08/04/15 RECREATIONAL THERAPY 93.81 02/21/10 RESECTION OF APPENDIX, OPEN APPROACH [id number] 08/04/15 Internal Medicine Assmt/Plan - Assessment Assessment: MRSA NARES htn hypothyroidism diverting colostomy dmenetia obesity anemia hyponatremia hyperglycemia - Plan Plan: fall precautions continue current plan of care Nutritional Asmnt/Malnutr-PDOC - Dietary Evaluation Malnutrition Findings (Please click <Entered> for more info): Nutritional Asmnt/Malnutrition Start: 09/18/17 14: 05 Text: Status: Complete Freq: Protocol: Document 09/18/17 14:06 EDWIN (Rec: 09/18/17 14:22 EDWIN [email or web address]) Nutritional Asmnt/Malnutrition Patient General Information Nutritional Screening Moderate Risk Diagnosis psychosis Pertinent Medical Hx/Surgical Hx HTN, thyroid disorder, cardiomegaly, hypothyroidism, rectal prolapse, femal geital prolapse, hyponatremia, schizophrenia, ptosis, schizophrenia Subjective Information Per EMR, PO intake 100% of meals. Per nurse note, pt was confused and rambling, difficult to understand her. Current Diet Order/ Nutrition Support mech soft ground Pertinent Medications levothyroixine, nacl Pertinent Labs 09/17 Na 132, Cr 0.5, glucose 98 09/14 Na 124, Cl 91, Cr 0.5, glucose 106, A1c 5.8 Nutritional Hx/Data Height 6 ft 3 in Height (Calculated Centimeters) 190.5 Current Weight (lbs) 149 lb Weight (Calculated Kilograms) 67.6 Weight (Calculated Grams) 74470.3 [place] Body Weight 196 Body Mass Index (BMI) 18.6 Weight Status Approriate GI Symptoms GI Symptoms None Last BM 09/16 Difficult in: None Skin Integrity/Comment: dryness, Fabrizio 19 Current %PO Good (75-100%) Estimated Nutritional Goals BEE in Kcals: Using Current wt Calories/Kcals/Kg 27-32 Kcals Calculated 2389-9018 Protein: Using Current wt Protein g/k-1.2 Protein Calculated 68-82 Fluid: ml 1836-2176ml (1ml/kcal) Nutritional Problem No current Nutrition Prob Problem N/A Malnutrition Alert Is there a minimum of two criteria No selected? Query Text:Check all the applicable criteria. A minimum of two criteria are recommended for diagnosis of either severe or non-severe malnutrition. Malnutrition Related to Morbid Obesity Malnutrition related to morbid obesity No Intervention/Recommendation Comments 1. Continue with [facility] soft ground diet as ordered. 2. Monitor PO intake, wt, labs and skin integrity 3. F/U as low risk in 7 days, 09/25 Expected Outcomes/Goals Expected Outcomes/Goals 1. PO intake to meet at least 75% of nutritional needs. 2. Wt stability, skin to remain intact, labs to approach WNL.
--- NOTE | 2017-09-27 23:35 | Progress Notes ---
DATE: 09/27/2017 Case was discussed with staff of the patient, reviewed records. The patient is starting to show a little progress. She is not urinating on the floor. The patient is still confused, rambling. Continues to be unable to make safe plan for self-care. She is sleeping well. She is eating well. She can feed herself. No side effects to the medication. No sedation, no nausea, no extrapyramidal symptoms. Continues to be a high risk for fall. Continues to have poor insight. Unable to make safe plan for self-care. We will continue to work with the patient in group therapy, milieu therapy, and adjust the medications as needed. JOB# [id number]
[2017-09-28] MEDS: Atorvastatin Calcium 10 MG TAB PO SCH (08:39)
--- NOTE | 2017-09-28 11:20 | Internal Medicine Prog Note ---
Internal Medicine Subjective - Subjective Service Date: 09/28/17 Patient is:: awake, verbal, interactive Patient Complaints of:: congestion Per staff patient has:: no adverse event, no episodes of fall, poor appetite, tolerating meds Internal Medicine Objective - Results Result Diagrams: 09/17/17 07:20 09/17/17 07:20 Recent Labs: Laboratory Last Values WBC 4.3 Th/cmm (4.8-10.8) L 09/17/17 07:20 RBC 4.11 Mil/cmm (3.80-5.20) 09/17/17 07:20 Hgb 12.1 gm/dL (12-16) 09/17/17 07:20 Hct 35.1 % (41.0-60) L 09/17/17 07:20 MCV 85.3 fl (81-100) 09/17/17 07:20 MCH 29.5 pg (27.0-31.0) 09/17/17 07:20 MCHC Differential 34.6 pg (28.0-36.0) 09/17/17 07:20 RDW 12.1 % (11.5-20.0) 09/17/17 07:20 Plt Count 257 Th/cmm (150-400) 09/17/17 07:20 MPV 7.4 fl 09/17/17 07:20 Neutrophils % 47.3 % (40.0-80.0) 09/17/17 07:20 Lymphocytes % 38.6 % (20.0-50.0) 09/17/17 07:20 Monocytes % 10.2 % (2.0-10.0) H 09/17/17 07:20 Eosinophils % 2.5 % (0.0-5.0) 09/17/17 07:20 Basophils % 1.4 % (0.0-2.0) 09/17/17 07:20 Sodium 132 mEq/L (136-145) L 09/17/17 07:20 Potassium 4.1 mEq/L (3.5-5.1) 09/17/17 07:20 Chloride 98 mEq/L (98-107) 09/17/17 07:20 Carbon Dioxide 27.6 mEq/L (21.0-31.0) 09/17/17 07:20 Anion Gap 10.5 (7.0-16.0) 09/17/17 07:20 BUN 12 mg/dL (7-25) 09/17/17 07:20 Creatinine 0.5 mg/dL (0.6-1.2) L 09/17/17 07:20 Est GFR ( Amer) TNP 09/17/17 07:20 Est GFR (Non-Af Amer) TNP 09/17/17 07:20 BUN/Creatinine Ratio 24.0 09/17/17 07:20 Glucose 98 mg/dL (70-105) 09/17/17 07:20 Hemoglobin A1c % 5.8 % (4.0-6.0) 09/14/17 19:15 Calcium 9.5 mg/dL (8.6-10.3) 09/17/17 07:20 Total Bilirubin 0.4 mg/dL (0.3-1.0) 09/14/17 19:15 AST 16 U/L (13-39) 09/14/17 19:15 ALT 11 U/L (7-52) 09/14/17 19:15 Alkaline Phosphatase 94 U/L (34-104) 09/14/17 19:15 Total Protein 8.1 gm/dL (6.0-8.3) 09/14/17 19:15 Albumin 4.4 gm/dL (3.7-5.3) 09/14/17 19:15 Globulin 3.7 gm/dL 09/14/17 19:15 Albumin/Globulin Ratio 1.2 (1.0-1.8) 09/14/17 19:15 Triglycerides 267 mg/dL (<150) H 09/14/17 19:15 Cholesterol 232 mg/dL (<200) H 09/14/17 19:15 LDL Cholesterol Direct 154 mg/dL (75-193) 09/14/17 19:15 HDL Cholesterol 52 mg/dL (23-92) 09/14/17 19:15 TSH 0.80 uIU/ml (0.34-5.60) 09/14/17 19:15 Urine Source CLEAN C 09/14/17 19:20 Urine Color YELLOW 09/14/17 19:20 Urine Clarity CLEAR (CLEAR) 09/14/17 19:20 Urine pH 5.5 (4.6 - 8.0) 09/14/17 19:20 Ur Specific [place] <= 1.005 (1.005-1.030) 09/14/17 19:20 Urine Protein NEGATIVE mg/dL (NEGATIVE) 09/14/17 19:20 Urine Glucose (UA) NEGATIVE mg/dL (NEGATIVE) 09/14/17 19:20 Urine Ketones NEGATIVE mg/dL (NEGATIVE) 09/14/17 19:20 Urine Blood NEGATIVE (NEGATIVE) 09/14/17 19:20 Urine Nitrate NEGATIVE (NEGATIVE) 09/14/17 19:20 Urine Bilirubin NEGATIVE (NEGATIVE) 09/14/17 19:20 Urine Urobilinogen 0.2 E.U./dL (0.2 - 1.0) 09/14/17 19:20 Ur Leukocyte Esterase TRACE (NEGATIVE) H 09/14/17 19:20 Urine RBC 0-2 /hpf (0-5) 09/14/17 19:20 Urine WBC 0-2 /hpf (0-5) 09/14/17 19:20 Ur Epithelial Cells OCCASIONAL /lpf (FEW) 09/14/17 19:20 Urine Bacteria NONE SEEN /hpf (NONE SEEN) 09/14/17 19:20 RPR NONREACTIVE (NONREACTIVE) 09/14/17 19:15 - Physical Exam Vitals and I&O: Vital Signs Temp 97.9 F 09/28/17 09:59 Pulse 90 09/28/17 09:59 Resp 20 09/28/17 09:59 BP 131/79 09/28/17 09:59 Pulse Ox 97 09/28/17 09:59 Intake & Output 09/27/17 09/28/17 09/28/17 18:59 06:59 18:59 Intake Total 360 Output Total 200 Balance -200 360 Intake: Oral 360 Output: Stool 200 Other: # Voids 3 2 Stool Characteristics Foamy Foamy Foamy Active Medications: Current Medications Acetaminophen (Tylenol) 650 mg PO Q4HR PRN PRN Reason: Pain or Fever >101 Stop: 11/13/17 22:40 Atorvastatin Calcium (Lipitor) 20 mg PO DAILY [facility]; Protocol Stop: 11/14/17 12:44 Last Admin: 09/28/17 08:39 Dose: 20 mg Docusate Sodium (Colace) 100 mg PO BID [facility] Stop: 11/14/17 08:59 Last Admin: 09/28/17 08:38 Dose: 100 mg Levothyroxine Sodium 0.1 mg/ (Levothyroxine Sodium 0.025 mg) 0.125 mg PO QDAC [facility] Stop: 11/17/17 07:29 Last Admin: 09/28/17 06:40 Dose: 0.125 mg Lisinopril (Zestril) 20 mg PO DAILY [facility] Stop: 11/14/17 08:59 Last Admin: 09/28/17 08:39 Dose: 20 mg Lorazepam (Ativan) 0.5 mg PO Q4HR PRN; Protocol PRN Reason: Anxiety Stop: 10/14/17 22:44 Last Admin: 09/22/17 20:36 Dose: 0.5 mg Magnesium Hydroxide (Milk Of Magnesia) 30 ml PO HS PRN PRN Reason: Constipation Stop: 11/13/17 22:40 Metoprolol Tartrate (Lopressor) 25 mg PO DAILY [facility] Stop: 11/14/17 08:59 Last Admin: 09/28/17 08:38 Dose: 25 mg Olanzapine 20 mg/ Olanzapine 5 (mg) 25 mg PO DAILY [facility] Stop: 11/25/17 08:59 Last Admin: 09/28/17 08:39 Dose: 25 mg Sodium Chloride (Nacl Tab) 1 gm PO TID [facility] Stop: 11/14/17 08:59 Last Admin: 09/28/17 08:38 Dose: 1 gm Zolpidem Tartrate (Ambien) 5 mg PO HS PRN PRN Reason: Insomnia Stop: 11/13/17 22:44 Last Admin: 09/23/17 21:21 Dose: 5 mg General: alert HEENT: NC/AT, PERRLA Neck: Supple Lungs: CTAB Cardiovascular: RRR, Normal S1, Normal S2, without murmur Abdomen: soft, non-tender, non-distended, positive bowel sound Extremities: excoriation Neurological: alert - Procedures Procedures: Procedures Procedure Code Date APPENDECTOMY ADD-ON 27018 08/04/15 BYPASS TRANSVERSE COLON TO CUTANEOUS, OPEN APPROACH [id number] 08/04/15 COLOSTOMY 85675 08/04/15 EXCISION OF LARGE INTESTINE, OPEN APPROACH [id number] 08/04/15 GROUP PSYCHOTHERAPY 99876 07/31/15 GROUP PSYCHOTHERAPY GZHZZZZ 07/31/15 GROUP PSYCHOTHERAPY 45748 04/02/15 GROUP PSYCHOTHERAPY GZHZZZZ 04/02/15 OTHER GROUP THERAPY 94.44 11/07/14 PARTIAL REMOVAL OF COLON 33475 08/04/15 RECREATIONAL THERAPY 93.81 02/21/10 RESECTION OF APPENDIX, OPEN APPROACH [id number] 08/04/15 Internal Medicine Assmt/Plan - Assessment Assessment: MRSA NARES htn hypothyroidism diverting colostomy dmenetia obesity anemia hyponatremia hyperglycemia - Plan Plan: fall precautions continue current plan of care Nutritional Asmnt/Malnutr-PDOC - Dietary Evaluation Malnutrition Findings (Please click <Entered> for more info): Nutritional Asmnt/Malnutrition Start: 09/18/17 14: 05 Text: Status: Complete Freq: Protocol: Document 09/18/17 14:06 EDWIN (Rec: 09/18/17 14:22 EDWIN [email or web address]) Nutritional Asmnt/Malnutrition Patient General Information Nutritional Screening Moderate Risk Diagnosis psychosis Pertinent Medical Hx/Surgical Hx HTN, thyroid disorder, cardiomegaly, hypothyroidism, rectal prolapse, femal geital prolapse, hyponatremia, schizophrenia, ptosis, schizophrenia Subjective Information Per EMR, PO intake 100% of meals. Per nurse note, pt was confused and rambling, difficult to understand her. Current Diet Order/ Nutrition Support mech soft ground Pertinent Medications levothyroixine, nacl Pertinent Labs 09/17 Na 132, Cr 0.5, glucose 98 09/14 Na 124, Cl 91, Cr 0.5, glucose 106, A1c 5.8 Nutritional Hx/Data Height 6 ft 3 in Height (Calculated Centimeters) 190.5 Current Weight (lbs) 149 lb Weight (Calculated Kilograms) 67.6 Weight (Calculated Grams) 85064.3 [place] Body Weight 196 Body Mass Index (BMI) 18.6 Weight Status Approriate GI Symptoms GI Symptoms None Last BM 09/16 Difficult in: None Skin Integrity/Comment: dryness, Fabrizio 19 Current %PO Good (75-100%) Estimated Nutritional Goals BEE in Kcals: Using Current wt Calories/Kcals/Kg 27-32 Kcals Calculated 8429-3090 Protein: Using Current wt Protein g/k-1.2 Protein Calculated 68-82 Fluid: ml 1836-2176ml (1ml/kcal) Nutritional Problem No current Nutrition Prob Problem N/A Malnutrition Alert Is there a minimum of two criteria No selected? Query Text:Check all the applicable criteria. A minimum of two criteria are recommended for diagnosis of either severe or non-severe malnutrition. Malnutrition Related to Morbid Obesity Malnutrition related to morbid obesity No Intervention/Recommendation Comments 1. Continue with [facility] soft ground diet as ordered. 2. Monitor PO intake, wt, labs and skin integrity 3. F/U as low risk in 7 days, 09/25 Expected Outcomes/Goals Expected Outcomes/Goals 1. PO intake to meet at least 75% of nutritional needs. 2. Wt stability, skin to remain intact, labs to approach WNL.
--- NOTE | 2017-09-28 15:38 | Progress Notes ---
DATE: 09/28/2017 Case was discussed with staff of the patient, reviewed records. The patient continues to have poor insight, unpredictable, impulsive, needing redirection, rambling speech. Her lab work shows low hematocrit, the rest within normal range. Chemistry panel with low sodium, low chloride, low creatinine, high blood sugar and high triglyceride. Urinalysis with a trace of leukocytic esterase. RPR is nonreactive. I will leave this for the medical doctor to evaluate and we will continue to work with the patient in group therapy, milieu therapy, and adjust the medication. JOB# [id number]
[2017-09-29] MEDS: Atorvastatin Calcium 10 MG TAB PO SCH (08:39)
--- NOTE | 2017-09-29 11:23 | Internal Medicine Prog Note ---
Internal Medicine Subjective - Subjective Service Date: 09/29/17 Patient is:: awake, verbal, interactive Patient Complaints of:: congestion Per staff patient has:: no adverse event, no episodes of fall, poor appetite, tolerating meds Internal Medicine Objective - Results Result Diagrams: 09/17/17 07:20 09/17/17 07:20 Recent Labs: Laboratory Last Values WBC 4.3 Th/cmm (4.8-10.8) L 09/17/17 07:20 RBC 4.11 Mil/cmm (3.80-5.20) 09/17/17 07:20 Hgb 12.1 gm/dL (12-16) 09/17/17 07:20 Hct 35.1 % (41.0-60) L 09/17/17 07:20 MCV 85.3 fl (81-100) 09/17/17 07:20 MCH 29.5 pg (27.0-31.0) 09/17/17 07:20 MCHC Differential 34.6 pg (28.0-36.0) 09/17/17 07:20 RDW 12.1 % (11.5-20.0) 09/17/17 07:20 Plt Count 257 Th/cmm (150-400) 09/17/17 07:20 MPV 7.4 fl 09/17/17 07:20 Neutrophils % 47.3 % (40.0-80.0) 09/17/17 07:20 Lymphocytes % 38.6 % (20.0-50.0) 09/17/17 07:20 Monocytes % 10.2 % (2.0-10.0) H 09/17/17 07:20 Eosinophils % 2.5 % (0.0-5.0) 09/17/17 07:20 Basophils % 1.4 % (0.0-2.0) 09/17/17 07:20 Sodium 132 mEq/L (136-145) L 09/17/17 07:20 Potassium 4.1 mEq/L (3.5-5.1) 09/17/17 07:20 Chloride 98 mEq/L (98-107) 09/17/17 07:20 Carbon Dioxide 27.6 mEq/L (21.0-31.0) 09/17/17 07:20 Anion Gap 10.5 (7.0-16.0) 09/17/17 07:20 BUN 12 mg/dL (7-25) 09/17/17 07:20 Creatinine 0.5 mg/dL (0.6-1.2) L 09/17/17 07:20 Est GFR ( Amer) TNP 09/17/17 07:20 Est GFR (Non-Af Amer) TNP 09/17/17 07:20 BUN/Creatinine Ratio 24.0 09/17/17 07:20 Glucose 98 mg/dL (70-105) 09/17/17 07:20 Hemoglobin A1c % 5.8 % (4.0-6.0) 09/14/17 19:15 Calcium 9.5 mg/dL (8.6-10.3) 09/17/17 07:20 Total Bilirubin 0.4 mg/dL (0.3-1.0) 09/14/17 19:15 AST 16 U/L (13-39) 09/14/17 19:15 ALT 11 U/L (7-52) 09/14/17 19:15 Alkaline Phosphatase 94 U/L (34-104) 09/14/17 19:15 Total Protein 8.1 gm/dL (6.0-8.3) 09/14/17 19:15 Albumin 4.4 gm/dL (3.7-5.3) 09/14/17 19:15 Globulin 3.7 gm/dL 09/14/17 19:15 Albumin/Globulin Ratio 1.2 (1.0-1.8) 09/14/17 19:15 Triglycerides 267 mg/dL (<150) H 09/14/17 19:15 Cholesterol 232 mg/dL (<200) H 09/14/17 19:15 LDL Cholesterol Direct 154 mg/dL (75-193) 09/14/17 19:15 HDL Cholesterol 52 mg/dL (23-92) 09/14/17 19:15 TSH 0.80 uIU/ml (0.34-5.60) 09/14/17 19:15 Urine Source CLEAN C 09/14/17 19:20 Urine Color YELLOW 09/14/17 19:20 Urine Clarity CLEAR (CLEAR) 09/14/17 19:20 Urine pH 5.5 (4.6 - 8.0) 09/14/17 19:20 Ur Specific [place] <= 1.005 (1.005-1.030) 09/14/17 19:20 Urine Protein NEGATIVE mg/dL (NEGATIVE) 09/14/17 19:20 Urine Glucose (UA) NEGATIVE mg/dL (NEGATIVE) 09/14/17 19:20 Urine Ketones NEGATIVE mg/dL (NEGATIVE) 09/14/17 19:20 Urine Blood NEGATIVE (NEGATIVE) 09/14/17 19:20 Urine Nitrate NEGATIVE (NEGATIVE) 09/14/17 19:20 Urine Bilirubin NEGATIVE (NEGATIVE) 09/14/17 19:20 Urine Urobilinogen 0.2 E.U./dL (0.2 - 1.0) 09/14/17 19:20 Ur Leukocyte Esterase TRACE (NEGATIVE) H 09/14/17 19:20 Urine RBC 0-2 /hpf (0-5) 09/14/17 19:20 Urine WBC 0-2 /hpf (0-5) 09/14/17 19:20 Ur Epithelial Cells OCCASIONAL /lpf (FEW) 09/14/17 19:20 Urine Bacteria NONE SEEN /hpf (NONE SEEN) 09/14/17 19:20 RPR NONREACTIVE (NONREACTIVE) 09/14/17 19:15 - Physical Exam Vitals and I&O: Vital Signs Temp 98.0 F 09/28/17 20:00 Pulse 93 09/29/17 08:40 Resp 20 09/28/17 20:00 BP 136/86 09/29/17 08:40 Pulse Ox 96 09/28/17 20:00 Intake & Output 09/28/17 09/29/17 09/29/17 18:59 06:59 18:59 Intake Total 980 500 Balance 980 500 Intake: Oral 980 500 Other: # Voids 7 4 # Bowel Movements 2 Stool Characteristics Formed Formed Active Medications: Current Medications Acetaminophen (Tylenol) 650 mg PO Q4HR PRN PRN Reason: Pain or Fever >101 Stop: 11/13/17 22:40 Atorvastatin Calcium (Lipitor) 20 mg PO DAILY NICOLE; Protocol Stop: 11/14/17 12:44 Last Admin: 09/29/17 08:39 Dose: 20 mg Docusate Sodium (Colace) 100 mg PO BID NICOLE Stop: 11/14/17 08:59 Last Admin: 09/29/17 08:39 Dose: 100 mg Levothyroxine Sodium 0.1 mg/ (Levothyroxine Sodium 0.025 mg) 0.125 mg PO QDAC NICOLE Stop: 11/17/17 07:29 Last Admin: 09/29/17 06:32 Dose: 0.125 mg Lisinopril (Zestril) 20 mg PO DAILY NICOLE Stop: 11/14/17 08:59 Last Admin: 09/29/17 08:40 Dose: 20 mg Lorazepam (Ativan) 0.5 mg PO Q4HR PRN; Protocol PRN Reason: Anxiety Stop: 10/14/17 22:44 Last Admin: 09/29/17 08:39 Dose: 0.5 mg Magnesium Hydroxide (Milk Of Magnesia) 30 ml PO HS PRN PRN Reason: Constipation Stop: 11/13/17 22:40 Metoprolol Tartrate (Lopressor) 25 mg PO DAILY NICOLE Stop: 11/14/17 08:59 Last Admin: 09/29/17 08:39 Dose: 25 mg Olanzapine 20 mg/ Olanzapine 5 (mg) 25 mg PO DAILY NICOLE Stop: 11/25/17 08:59 Last Admin: 09/29/17 08:39 Dose: 25 mg Sodium Chloride (Nacl Tab) 1 gm PO TID NICOLE Stop: 11/14/17 08:59 Last Admin: 09/29/17 08:39 Dose: 1 gm Zolpidem Tartrate (Ambien) 5 mg PO HS PRN PRN Reason: Insomnia Stop: 11/13/17 22:44 Last Admin: 09/23/17 21:21 Dose: 5 mg General: alert HEENT: NC/AT, PERRLA Neck: Supple Lungs: CTAB Cardiovascular: RRR, Normal S1, Normal S2, without murmur Abdomen: soft, non-tender, non-distended, positive bowel sound Extremities: excoriation Neurological: alert - Procedures Procedures: Procedures Procedure Code Date APPENDECTOMY ADD-ON 93277 08/04/15 BYPASS TRANSVERSE COLON TO CUTANEOUS, OPEN APPROACH [id number] 08/04/15 COLOSTOMY 30638 08/04/15 EXCISION OF LARGE INTESTINE, OPEN APPROACH [id number] 08/04/15 GROUP PSYCHOTHERAPY 54463 07/31/15 GROUP PSYCHOTHERAPY GZHZZZZ 07/31/15 GROUP PSYCHOTHERAPY 49732 04/02/15 GROUP PSYCHOTHERAPY GZHZZZZ 04/02/15 OTHER GROUP THERAPY 94.44 11/07/14 PARTIAL REMOVAL OF COLON 15571 08/04/15 RECREATIONAL THERAPY 93.81 02/21/10 RESECTION OF APPENDIX, OPEN APPROACH [id number] 08/04/15 Internal Medicine Assmt/Plan - Assessment Assessment: MRSA NARES htn hypothyroidism diverting colostomy dmenetia obesity anemia hyponatremia hyperglycemia - Plan Plan: fall precautions continue current plan of care Nutritional Asmnt/Malnutr-PDOC - Dietary Evaluation Malnutrition Findings (Please click <Entered> for more info): Nutritional Asmnt/Malnutrition Start: 09/18/17 14: 05 Text: Status: Complete Freq: Protocol: Document 09/18/17 14:06 TATIANAG (Rec: 09/18/17 14:22 LCJANESSAG [email or web address]) Nutritional Asmnt/Malnutrition Patient General Information Nutritional Screening Moderate Risk Diagnosis psychosis Pertinent Medical Hx/Surgical Hx HTN, thyroid disorder, cardiomegaly, hypothyroidism, rectal prolapse, femal geital prolapse, hyponatremia, schizophrenia, ptosis, schizophrenia Subjective Information Per EMR, PO intake 100% of meals. Per nurse note, pt was confused and rambling, difficult to understand her. Current Diet Order/ [facility] Pertinent Medications levothyroixine, nacl Pertinent Labs 09/17 Na 132, Cr 0.5, glucose 98 09/14 Na 124, Cl 91, Cr 0.5, glucose 106, A1c 5.8 Nutritional Hx/Data Height 6 ft 3 in Height (Calculated Centimeters) 190.5 Current Weight (lbs) 149 lb Weight (Calculated Kilograms) 67.6 Weight (Calculated Grams) 69563.3 [place] Body Weight 196 Body Mass Index (BMI) 18.6 Weight Status Approriate GI Symptoms GI Symptoms None Last BM 09/16 Difficult in: None Skin Integrity/Comment: dryness, Fabrizio 19 Current %PO Good (75-100%) Estimated Nutritional Goals BEE in Kcals: Using Current wt Calories/Kcals/Kg 27-32 Kcals Calculated 5840-7265 Protein: Using Current wt Protein g/k-1.2 Protein Calculated 68-82 Fluid: ml 1836-2176ml (1ml/kcal) Nutritional Problem No current Nutrition Prob Problem N/A Malnutrition Alert Is there a minimum of two criteria No selected? Query Text:Check all the applicable criteria. A minimum of two criteria are recommended for diagnosis of either severe or non-severe malnutrition. Malnutrition Related to Morbid Obesity Malnutrition related to morbid obesity No Intervention/Recommendation Comments [facility]. [facility] as ordered. 2. Monitor PO intake, wt, labs and skin integrity 3. F/U as low risk in 7 days, 09/25 Expected Outcomes/Goals Expected Outcomes/Goals 1. PO intake to meet at least 75% of nutritional needs. 2. Wt stability, skin to remain intact, labs to approach WNL.
--- NOTE | 2017-09-29 22:18 | Progress Notes ---
DATE: 09/29/2017 SUBJECTIVE: Case was discussed with staff of the patient, reviewed records. The patient continues to be unpredictable, impulsive, and rambling speech. She continues to need redirection. She continues to have poor insight, unable to make safe plan for self-care. She tolerated the increase in Zyprexa. No side effects with the medication, no sedation, no nausea, and no extrapyramidal symptoms. We will continue to work with the patient in group therapy, milieu therapy, and adjust the medications as needed. JOB# [id number]
[2017-09-30] MEDS: Atorvastatin Calcium 10 MG TAB PO SCH (09:48)
--- NOTE | 2017-09-30 15:09 | Internal Medicine Prog Note ---
Internal Medicine Subjective - Subjective Service Date: 09/30/17 Patient is:: awake, verbal, interactive Patient Complaints of:: congestion Per staff patient has:: no adverse event, no episodes of fall, poor appetite, tolerating meds Internal Medicine Objective - Results Result Diagrams: 09/17/17 07:20 09/17/17 07:20 Recent Labs: Laboratory Last Values WBC 4.3 Th/cmm (4.8-10.8) L 09/17/17 07:20 RBC 4.11 Mil/cmm (3.80-5.20) 09/17/17 07:20 Hgb 12.1 gm/dL (12-16) 09/17/17 07:20 Hct 35.1 % (41.0-60) L 09/17/17 07:20 MCV 85.3 fl (81-100) 09/17/17 07:20 MCH 29.5 pg (27.0-31.0) 09/17/17 07:20 MCHC Differential 34.6 pg (28.0-36.0) 09/17/17 07:20 RDW 12.1 % (11.5-20.0) 09/17/17 07:20 Plt Count 257 Th/cmm (150-400) 09/17/17 07:20 MPV 7.4 fl 09/17/17 07:20 Neutrophils % 47.3 % (40.0-80.0) 09/17/17 07:20 Lymphocytes % 38.6 % (20.0-50.0) 09/17/17 07:20 Monocytes % 10.2 % (2.0-10.0) H 09/17/17 07:20 Eosinophils % 2.5 % (0.0-5.0) 09/17/17 07:20 Basophils % 1.4 % (0.0-2.0) 09/17/17 07:20 Sodium 132 mEq/L (136-145) L 09/17/17 07:20 Potassium 4.1 mEq/L (3.5-5.1) 09/17/17 07:20 Chloride 98 mEq/L (98-107) 09/17/17 07:20 Carbon Dioxide 27.6 mEq/L (21.0-31.0) 09/17/17 07:20 Anion Gap 10.5 (7.0-16.0) 09/17/17 07:20 BUN 12 mg/dL (7-25) 09/17/17 07:20 Creatinine 0.5 mg/dL (0.6-1.2) L 09/17/17 07:20 Est GFR ( Amer) TNP 09/17/17 07:20 Est GFR (Non-Af Amer) TNP 09/17/17 07:20 BUN/Creatinine Ratio 24.0 09/17/17 07:20 Glucose 98 mg/dL (70-105) 09/17/17 07:20 Hemoglobin A1c % 5.8 % (4.0-6.0) 09/14/17 19:15 Calcium 9.5 mg/dL (8.6-10.3) 09/17/17 07:20 Total Bilirubin 0.4 mg/dL (0.3-1.0) 09/14/17 19:15 AST 16 U/L (13-39) 09/14/17 19:15 ALT 11 U/L (7-52) 09/14/17 19:15 Alkaline Phosphatase 94 U/L (34-104) 09/14/17 19:15 Total Protein 8.1 gm/dL (6.0-8.3) 09/14/17 19:15 Albumin 4.4 gm/dL (3.7-5.3) 09/14/17 19:15 Globulin 3.7 gm/dL 09/14/17 19:15 Albumin/Globulin Ratio 1.2 (1.0-1.8) 09/14/17 19:15 Triglycerides 267 mg/dL (<150) H 09/14/17 19:15 Cholesterol 232 mg/dL (<200) H 09/14/17 19:15 LDL Cholesterol Direct 154 mg/dL (75-193) 09/14/17 19:15 HDL Cholesterol 52 mg/dL (23-92) 09/14/17 19:15 TSH 0.80 uIU/ml (0.34-5.60) 09/14/17 19:15 Urine Source CLEAN C 09/14/17 19:20 Urine Color YELLOW 09/14/17 19:20 Urine Clarity CLEAR (CLEAR) 09/14/17 19:20 Urine pH 5.5 (4.6 - 8.0) 09/14/17 19:20 Ur Specific [place] <= 1.005 (1.005-1.030) 09/14/17 19:20 Urine Protein NEGATIVE mg/dL (NEGATIVE) 09/14/17 19:20 Urine Glucose (UA) NEGATIVE mg/dL (NEGATIVE) 09/14/17 19:20 Urine Ketones NEGATIVE mg/dL (NEGATIVE) 09/14/17 19:20 Urine Blood NEGATIVE (NEGATIVE) 09/14/17 19:20 Urine Nitrate NEGATIVE (NEGATIVE) 09/14/17 19:20 Urine Bilirubin NEGATIVE (NEGATIVE) 09/14/17 19:20 Urine Urobilinogen 0.2 E.U./dL (0.2 - 1.0) 09/14/17 19:20 Ur Leukocyte Esterase TRACE (NEGATIVE) H 09/14/17 19:20 Urine RBC 0-2 /hpf (0-5) 09/14/17 19:20 Urine WBC 0-2 /hpf (0-5) 09/14/17 19:20 Ur Epithelial Cells OCCASIONAL /lpf (FEW) 09/14/17 19:20 Urine Bacteria NONE SEEN /hpf (NONE SEEN) 09/14/17 19:20 RPR NONREACTIVE (NONREACTIVE) 09/14/17 19:15 - Physical Exam Vitals and I&O: Vital Signs Temp 98.1 F 09/29/17 15:21 Pulse 77 09/30/17 09:49 Resp 20 09/29/17 15:21 BP 125/67 09/30/17 09:49 Pulse Ox 98 09/29/17 15:21 Intake & Output 09/29/17 09/30/17 09/30/17 18:59 06:59 18:59 Intake Total 1200 Balance 1200 Intake: Oral 1200 Other: # Voids 4 Stool Characteristics Foamy Soft Active Medications: Current Medications Acetaminophen (Tylenol) 650 mg PO Q4HR PRN PRN Reason: Pain or Fever >101 Stop: 11/13/17 22:40 Atorvastatin Calcium (Lipitor) 20 mg PO DAILY [facility]; Protocol Stop: 11/14/17 12:44 Last Admin: 09/30/17 09:48 Dose: 20 mg Docusate Sodium (Colace) 100 mg PO BID [facility] Stop: 11/14/17 08:59 Last Admin: 09/30/17 09:48 Dose: 100 mg Levothyroxine Sodium 0.1 mg/ (Levothyroxine Sodium 0.025 mg) 0.125 mg PO QDAC NICOLE Stop: 11/17/17 07:29 Last Admin: 09/30/17 06:44 Dose: 0.125 mg Lisinopril (Zestril) 20 mg PO DAILY NICOLE Stop: 11/14/17 08:59 Last Admin: 09/30/17 09:49 Dose: 20 mg Lorazepam (Ativan) 0.5 mg PO Q4HR PRN; Protocol PRN Reason: Anxiety Stop: 10/14/17 22:44 Last Admin: 09/30/17 13:49 Dose: 0.5 mg Magnesium Hydroxide (Milk Of Magnesia) 30 ml PO HS PRN PRN Reason: Constipation Stop: 11/13/17 22:40 Metoprolol Tartrate (Lopressor) 25 mg PO DAILY NICOLE Stop: 11/14/17 08:59 Last Admin: 09/30/17 09:49 Dose: 25 mg Olanzapine 20 mg/ Olanzapine 5 (mg) 25 mg PO DAILY NICOLE Stop: 11/25/17 08:59 Last Admin: 09/30/17 09:48 Dose: 25 mg Sodium Chloride (Nacl Tab) 1 gm PO TID NICOLE Stop: 11/14/17 08:59 Last Admin: 09/30/17 13:49 Dose: 1 gm Zolpidem Tartrate (Ambien) 5 mg PO HS PRN PRN Reason: Insomnia Stop: 11/13/17 22:44 Last Admin: 09/30/17 02:00 Dose: 5 mg General: alert HEENT: NC/AT, PERRLA Neck: Supple Lungs: CTAB Cardiovascular: RRR, Normal S1, Normal S2, without murmur Abdomen: soft, non-tender, non-distended, positive bowel sound Extremities: excoriation Neurological: alert - Procedures Procedures: Procedures Procedure Code Date APPENDECTOMY ADD-ON 41516 08/04/15 BYPASS TRANSVERSE COLON TO CUTANEOUS, OPEN APPROACH [id number] 08/04/15 COLOSTOMY 61603 08/04/15 EXCISION OF LARGE INTESTINE, OPEN APPROACH [id number] 08/04/15 GROUP PSYCHOTHERAPY 72593 07/31/15 GROUP PSYCHOTHERAPY GZHZZZZ 07/31/15 GROUP PSYCHOTHERAPY 31059 04/02/15 GROUP PSYCHOTHERAPY GZHZZZZ 04/02/15 OTHER GROUP THERAPY 94.44 11/07/14 PARTIAL REMOVAL OF COLON 70257 08/04/15 RECREATIONAL THERAPY 93.81 02/21/10 RESECTION OF APPENDIX, OPEN APPROACH [id number] 08/04/15 Internal Medicine Assmt/Plan - Assessment Assessment: MRSA NARES htn hypothyroidism diverting colostomy dmenetia obesity anemia hyponatremia hyperglycemia - Plan Plan: fall precautions continue current plan of care Nutritional Asmnt/Malnutr-PDOC - Dietary Evaluation Malnutrition Findings (Please click <Entered> for more info): Nutritional Asmnt/Malnutrition Start: 09/18/17 14: 05 Text: Status: Complete Freq: Protocol: Document 09/18/17 14:06 LCHENG (Rec: 09/18/17 14:22 LCJANESSAG [email or web address]) Nutritional Asmnt/Malnutrition Patient General Information Nutritional Screening Moderate Risk Diagnosis psychosis Pertinent Medical Hx/Surgical Hx HTN, thyroid disorder, cardiomegaly, hypothyroidism, rectal prolapse, femal geital prolapse, hyponatremia, schizophrenia, ptosis, schizophrenia Subjective Information Per EMR, PO intake 100% of meals. Per nurse note, pt was confused and rambling, difficult to understand her. Current Diet Order/ Nutrition Support [facility] soft ground Pertinent Medications levothyroixine, nacl Pertinent Labs 09/17 Na 132, Cr 0.5, glucose 98 09/14 Na 124, Cl 91, Cr 0.5, glucose 106, A1c 5.8 Nutritional Hx/Data Height 6 ft 3 in Height (Calculated Centimeters) 190.5 Current Weight (lbs) 149 lb Weight (Calculated Kilograms) 67.6 Weight (Calculated Grams) 27610.3 [place] Body Weight 196 Body Mass Index (BMI) 18.6 Weight Status Approriate GI Symptoms GI Symptoms None Last BM 09/16 Difficult in: None Skin Integrity/Comment: dryness, Fabrizio 19 Current %PO Good (75-100%) Estimated Nutritional Goals BEE in Kcals: Using Current wt Calories/Kcals/Kg 27-32 Kcals Calculated 6804-3744 Protein: Using Current wt Protein g/k-1.2 Protein Calculated 68-82 Fluid: ml 1836-2176ml (1ml/kcal) Nutritional Problem No current Nutrition Prob Problem N/A Malnutrition Alert Is there a minimum of two criteria No selected? Query Text:Check all the applicable criteria. A minimum of two criteria are recommended for diagnosis of either severe or non-severe malnutrition. Malnutrition Related to Morbid Obesity Malnutrition related to morbid obesity No Intervention/Recommendation Comments 1. Continue with [facility] soft ground diet as ordered. 2. Monitor PO intake, wt, labs and skin integrity 3. F/U as low risk in 7 days, 09/25 Expected Outcomes/Goals Expected Outcomes/Goals 1. PO intake to meet at least 75% of nutritional needs. 2. Wt stability, skin to remain intact, labs to approach WNL.
[2017-10-01] MEDS: Atorvastatin Calcium 10 MG TAB PO SCH (08:26)
--- NOTE | 2017-10-01 15:55 | Internal Medicine Prog Note ---
Internal Medicine Subjective - Subjective Service Date: 10/01/17 Patient is:: awake, verbal, interactive Patient Complaints of:: congestion Per staff patient has:: no adverse event, no episodes of fall, poor appetite, tolerating meds Internal Medicine Objective - Results Result Diagrams: 09/17/17 07:20 09/17/17 07:20 Recent Labs: Laboratory Last Values WBC 4.3 Th/cmm (4.8-10.8) L 09/17/17 07:20 RBC 4.11 Mil/cmm (3.80-5.20) 09/17/17 07:20 Hgb 12.1 gm/dL (12-16) 09/17/17 07:20 Hct 35.1 % (41.0-60) L 09/17/17 07:20 MCV 85.3 fl (81-100) 09/17/17 07:20 MCH 29.5 pg (27.0-31.0) 09/17/17 07:20 MCHC Differential 34.6 pg (28.0-36.0) 09/17/17 07:20 RDW 12.1 % (11.5-20.0) 09/17/17 07:20 Plt Count 257 Th/cmm (150-400) 09/17/17 07:20 MPV 7.4 fl 09/17/17 07:20 Neutrophils % 47.3 % (40.0-80.0) 09/17/17 07:20 Lymphocytes % 38.6 % (20.0-50.0) 09/17/17 07:20 Monocytes % 10.2 % (2.0-10.0) H 09/17/17 07:20 Eosinophils % 2.5 % (0.0-5.0) 09/17/17 07:20 Basophils % 1.4 % (0.0-2.0) 09/17/17 07:20 Sodium 132 mEq/L (136-145) L 09/17/17 07:20 Potassium 4.1 mEq/L (3.5-5.1) 09/17/17 07:20 Chloride 98 mEq/L (98-107) 09/17/17 07:20 Carbon Dioxide 27.6 mEq/L (21.0-31.0) 09/17/17 07:20 Anion Gap 10.5 (7.0-16.0) 09/17/17 07:20 BUN 12 mg/dL (7-25) 09/17/17 07:20 Creatinine 0.5 mg/dL (0.6-1.2) L 09/17/17 07:20 Est GFR ( Amer) TNP 09/17/17 07:20 Est GFR (Non-Af Amer) TNP 09/17/17 07:20 BUN/Creatinine Ratio 24.0 09/17/17 07:20 Glucose 98 mg/dL (70-105) 09/17/17 07:20 Hemoglobin A1c % 5.8 % (4.0-6.0) 09/14/17 19:15 Calcium 9.5 mg/dL (8.6-10.3) 09/17/17 07:20 Total Bilirubin 0.4 mg/dL (0.3-1.0) 09/14/17 19:15 AST 16 U/L (13-39) 09/14/17 19:15 ALT 11 U/L (7-52) 09/14/17 19:15 Alkaline Phosphatase 94 U/L (34-104) 09/14/17 19:15 Total Protein 8.1 gm/dL (6.0-8.3) 09/14/17 19:15 Albumin 4.4 gm/dL (3.7-5.3) 09/14/17 19:15 Globulin 3.7 gm/dL 09/14/17 19:15 Albumin/Globulin Ratio 1.2 (1.0-1.8) 09/14/17 19:15 Triglycerides 267 mg/dL (<150) H 09/14/17 19:15 Cholesterol 232 mg/dL (<200) H 09/14/17 19:15 LDL Cholesterol Direct 154 mg/dL (75-193) 09/14/17 19:15 HDL Cholesterol 52 mg/dL (23-92) 09/14/17 19:15 TSH 0.80 uIU/ml (0.34-5.60) 09/14/17 19:15 Urine Source CLEAN C 09/14/17 19:20 Urine Color YELLOW 09/14/17 19:20 Urine Clarity CLEAR (CLEAR) 09/14/17 19:20 Urine pH 5.5 (4.6 - 8.0) 09/14/17 19:20 Ur Specific [place] <= 1.005 (1.005-1.030) 09/14/17 19:20 Urine Protein NEGATIVE mg/dL (NEGATIVE) 09/14/17 19:20 Urine Glucose (UA) NEGATIVE mg/dL (NEGATIVE) 09/14/17 19:20 Urine Ketones NEGATIVE mg/dL (NEGATIVE) 09/14/17 19:20 Urine Blood NEGATIVE (NEGATIVE) 09/14/17 19:20 Urine Nitrate NEGATIVE (NEGATIVE) 09/14/17 19:20 Urine Bilirubin NEGATIVE (NEGATIVE) 09/14/17 19:20 Urine Urobilinogen 0.2 E.U./dL (0.2 - 1.0) 09/14/17 19:20 Ur Leukocyte Esterase TRACE (NEGATIVE) H 09/14/17 19:20 Urine RBC 0-2 /hpf (0-5) 09/14/17 19:20 Urine WBC 0-2 /hpf (0-5) 09/14/17 19:20 Ur Epithelial Cells OCCASIONAL /lpf (FEW) 09/14/17 19:20 Urine Bacteria NONE SEEN /hpf (NONE SEEN) 09/14/17 19:20 RPR NONREACTIVE (NONREACTIVE) 09/14/17 19:15 - Physical Exam Vitals and I&O: Vital Signs Temp 98.6 F 10/01/17 08:00 Pulse 73 10/01/17 08:27 Resp 18 10/01/17 08:00 BP 117/65 10/01/17 08:27 Pulse Ox 97 10/01/17 08:00 Intake & Output 09/30/17 10/01/17 10/01/17 18:59 06:59 18:59 Intake Total 1200 Balance 1200 Intake: Oral 1200 Other: # Voids 4 Stool Characteristics [place] Formed Formed Active Medications: Current Medications Acetaminophen (Tylenol) 650 mg PO Q4HR PRN PRN Reason: Pain or Fever >101 Stop: 11/13/17 22:40 Atorvastatin Calcium (Lipitor) 20 mg PO DAILY [facility]; Protocol Stop: 11/14/17 12:44 Last Admin: 10/01/17 08:26 Dose: 20 mg Docusate Sodium (Colace) 100 mg PO BID [facility] Stop: 11/14/17 08:59 Last Admin: 10/01/17 08:25 Dose: 100 mg Levothyroxine Sodium 0.1 mg/ (Levothyroxine Sodium 0.025 mg) 0.125 mg PO QDAC NICOLE Stop: 11/17/17 07:29 Last Admin: 10/01/17 07:02 Dose: 0.125 mg Lisinopril (Zestril) 20 mg PO DAILY NICOLE Stop: 11/14/17 08:59 Last Admin: 10/01/17 08:27 Dose: 20 mg Lorazepam (Ativan) 0.5 mg PO Q4HR PRN; Protocol PRN Reason: Anxiety Stop: 10/14/17 22:44 Last Admin: 09/30/17 13:49 Dose: 0.5 mg Magnesium Hydroxide (Milk Of Magnesia) 30 ml PO HS PRN PRN Reason: Constipation Stop: 11/13/17 22:40 Metoprolol Tartrate (Lopressor) 25 mg PO DAILY NICOLE Stop: 11/14/17 08:59 Last Admin: 10/01/17 08:25 Dose: 25 mg Olanzapine 20 mg/ Olanzapine 5 (mg) 25 mg PO DAILY NICOLE Stop: 11/25/17 08:59 Last Admin: 10/01/17 08:26 Dose: 25 mg Sodium Chloride (Nacl Tab) 1 gm PO TID NICOLE Stop: 11/14/17 08:59 Last Admin: 10/01/17 13:51 Dose: 1 gm Zolpidem Tartrate (Ambien) 5 mg PO HS PRN PRN Reason: Insomnia Stop: 11/13/17 22:44 Last Admin: 09/30/17 21:15 Dose: 5 mg General: alert HEENT: NC/AT, PERRLA Neck: Supple Lungs: CTAB Cardiovascular: RRR, Normal S1, Normal S2, without murmur Abdomen: soft, non-tender, non-distended, positive bowel sound Extremities: excoriation Neurological: alert - Procedures Procedures: Procedures Procedure Code Date APPENDECTOMY ADD-ON 60934 08/04/15 BYPASS TRANSVERSE COLON TO CUTANEOUS, OPEN APPROACH [id number] 08/04/15 COLOSTOMY 39993 08/04/15 EXCISION OF LARGE INTESTINE, OPEN APPROACH [id number] 08/04/15 GROUP PSYCHOTHERAPY 15295 07/31/15 GROUP PSYCHOTHERAPY GZHZZZZ 07/31/15 GROUP PSYCHOTHERAPY 92642 04/02/15 GROUP PSYCHOTHERAPY GZHZZZZ 04/02/15 OTHER GROUP THERAPY 94.44 11/07/14 PARTIAL REMOVAL OF COLON 77326 08/04/15 RECREATIONAL THERAPY 93.81 02/21/10 RESECTION OF APPENDIX, OPEN APPROACH [id number] 08/04/15 Internal Medicine Assmt/Plan - Assessment Assessment: MRSA NARES htn hypothyroidism diverting colostomy dmenetia obesity anemia hyponatremia hyperglycemia - Plan Plan: fall precautions continue current plan of care Nutritional Asmnt/Malnutr-PDOC - Dietary Evaluation Malnutrition Findings (Please click <Entered> for more info): Nutritional Asmnt/Malnutrition Start: 09/18/17 14: 05 Text: Status: Complete Freq: Protocol: Document 09/18/17 14:06 LCJANESSAG (Rec: 09/18/17 14:22 LCJANESSAG [email or web address]) Nutritional Asmnt/Malnutrition Patient General Information Nutritional Screening Moderate Risk Diagnosis psychosis Pertinent Medical Hx/Surgical Hx HTN, thyroid disorder, cardiomegaly, hypothyroidism, rectal prolapse, femal geital prolapse, hyponatremia, schizophrenia, ptosis, schizophrenia Subjective Information Per EMR, PO intake 100% of meals. Per nurse note, pt was confused and rambling, difficult to understand her. Current Diet Order/ Nutrition Support [facility] soft ground Pertinent Medications levothyroixine, nacl Pertinent Labs 09/17 Na 132, Cr 0.5, glucose 98 09/14 Na 124, Cl 91, Cr 0.5, glucose 106, A1c 5.8 Nutritional Hx/Data Height 6 ft 3 in Height (Calculated Centimeters) 190.5 Current Weight (lbs) 149 lb Weight (Calculated Kilograms) 67.6 Weight (Calculated Grams) 82229.3 [place] Body Weight 196 Body Mass Index (BMI) 18.6 Weight Status Approriate GI Symptoms GI Symptoms None Last BM 09/16 Difficult in: None Skin Integrity/Comment: dryness, Fabrizio 19 Current %PO Good (75-100%) Estimated Nutritional Goals BEE in Kcals: Using Current wt Calories/Kcals/Kg 27-32 Kcals Calculated 9426-9291 Protein: Using Current wt Protein g/k-1.2 Protein Calculated 68-82 Fluid: ml 1836-2176ml (1ml/kcal) Nutritional Problem No current Nutrition Prob Problem N/A Malnutrition Alert Is there a minimum of two criteria No selected? Query Text:Check all the applicable criteria. A minimum of two criteria are recommended for diagnosis of either severe or non-severe malnutrition. Malnutrition Related to Morbid Obesity Malnutrition related to morbid obesity No Intervention/Recommendation Comments 1. Continue with [facility] soft ground diet as ordered. 2. Monitor PO intake, wt, labs and skin integrity 3. F/U as low risk in 7 days, 09/25 Expected Outcomes/Goals Expected Outcomes/Goals 1. PO intake to meet at least 75% of nutritional needs. 2. Wt stability, skin to remain intact, labs to approach WNL.
--- NOTE | 2017-10-02 01:12 | Progress Notes ---
DATE: 10/01/2017 SUBJECTIVE: Chart reviewed and the patient interviewed. Also, discussed the patient's condition with the staff and reviewed records and labs. The patient is still easily agitated and is in irritable mood. The patient also still has episodes of yelling and screaming for no reason. The patient also gets angry, especially trying to help her with her ADLs. Otherwise, the patient is compliant with taking her medications with no side effects of medications. ASSESSMENT: The patient is still agitated and confused and needs close monitoring. TREATMENT PLAN: Continue to monitor her behavior closely and continue adjusting psychotropic medications and continue to follow up. [facility]# [id number]
[2017-10-02] MEDS: Atorvastatin Calcium 10 MG TAB PO SCH (09:06)
--- NOTE | 2017-10-02 12:19 | Internal Medicine Prog Note ---
Internal Medicine Subjective - Subjective Service Date: 10/02/17 Patient is:: awake, verbal, interactive Patient Complaints of:: congestion Per staff patient has:: no adverse event, no episodes of fall, poor appetite, tolerating meds Internal Medicine Objective - Results Result Diagrams: 09/17/17 07:20 09/17/17 07:20 Recent Labs: Laboratory Last Values WBC 4.3 Th/cmm (4.8-10.8) L 09/17/17 07:20 RBC 4.11 Mil/cmm (3.80-5.20) 09/17/17 07:20 Hgb 12.1 gm/dL (12-16) 09/17/17 07:20 Hct 35.1 % (41.0-60) L 09/17/17 07:20 MCV 85.3 fl (81-100) 09/17/17 07:20 MCH 29.5 pg (27.0-31.0) 09/17/17 07:20 MCHC Differential 34.6 pg (28.0-36.0) 09/17/17 07:20 RDW 12.1 % (11.5-20.0) 09/17/17 07:20 Plt Count 257 Th/cmm (150-400) 09/17/17 07:20 MPV 7.4 fl 09/17/17 07:20 Neutrophils % 47.3 % (40.0-80.0) 09/17/17 07:20 Lymphocytes % 38.6 % (20.0-50.0) 09/17/17 07:20 Monocytes % 10.2 % (2.0-10.0) H 09/17/17 07:20 Eosinophils % 2.5 % (0.0-5.0) 09/17/17 07:20 Basophils % 1.4 % (0.0-2.0) 09/17/17 07:20 Sodium 132 mEq/L (136-145) L 09/17/17 07:20 Potassium 4.1 mEq/L (3.5-5.1) 09/17/17 07:20 Chloride 98 mEq/L (98-107) 09/17/17 07:20 Carbon Dioxide 27.6 mEq/L (21.0-31.0) 09/17/17 07:20 Anion Gap 10.5 (7.0-16.0) 09/17/17 07:20 BUN 12 mg/dL (7-25) 09/17/17 07:20 Creatinine 0.5 mg/dL (0.6-1.2) L 09/17/17 07:20 Est GFR ( Amer) TNP 09/17/17 07:20 Est GFR (Non-Af Amer) TNP 09/17/17 07:20 BUN/Creatinine Ratio 24.0 09/17/17 07:20 Glucose 98 mg/dL (70-105) 09/17/17 07:20 Hemoglobin A1c % 5.8 % (4.0-6.0) 09/14/17 19:15 Calcium 9.5 mg/dL (8.6-10.3) 09/17/17 07:20 Total Bilirubin 0.4 mg/dL (0.3-1.0) 09/14/17 19:15 AST 16 U/L (13-39) 09/14/17 19:15 ALT 11 U/L (7-52) 09/14/17 19:15 Alkaline Phosphatase 94 U/L (34-104) 09/14/17 19:15 Total Protein 8.1 gm/dL (6.0-8.3) 09/14/17 19:15 Albumin 4.4 gm/dL (3.7-5.3) 09/14/17 19:15 Globulin 3.7 gm/dL 09/14/17 19:15 Albumin/Globulin Ratio 1.2 (1.0-1.8) 09/14/17 19:15 Triglycerides 267 mg/dL (<150) H 09/14/17 19:15 Cholesterol 232 mg/dL (<200) H 09/14/17 19:15 LDL Cholesterol Direct 154 mg/dL (75-193) 09/14/17 19:15 HDL Cholesterol 52 mg/dL (23-92) 09/14/17 19:15 TSH 0.80 uIU/ml (0.34-5.60) 09/14/17 19:15 Urine Source CLEAN C 09/14/17 19:20 Urine Color YELLOW 09/14/17 19:20 Urine Clarity CLEAR (CLEAR) 09/14/17 19:20 Urine pH 5.5 (4.6 - 8.0) 09/14/17 19:20 Ur Specific [place] <= 1.005 (1.005-1.030) 09/14/17 19:20 Urine Protein NEGATIVE mg/dL (NEGATIVE) 09/14/17 19:20 Urine Glucose (UA) NEGATIVE mg/dL (NEGATIVE) 09/14/17 19:20 Urine Ketones NEGATIVE mg/dL (NEGATIVE) 09/14/17 19:20 Urine Blood NEGATIVE (NEGATIVE) 09/14/17 19:20 Urine Nitrate NEGATIVE (NEGATIVE) 09/14/17 19:20 Urine Bilirubin NEGATIVE (NEGATIVE) 09/14/17 19:20 Urine Urobilinogen 0.2 E.U./dL (0.2 - 1.0) 09/14/17 19:20 Ur Leukocyte Esterase TRACE (NEGATIVE) H 09/14/17 19:20 Urine RBC 0-2 /hpf (0-5) 09/14/17 19:20 Urine WBC 0-2 /hpf (0-5) 09/14/17 19:20 Ur Epithelial Cells OCCASIONAL /lpf (FEW) 09/14/17 19:20 Urine Bacteria NONE SEEN /hpf (NONE SEEN) 09/14/17 19:20 RPR NONREACTIVE (NONREACTIVE) 09/14/17 19:15 - Physical Exam Vitals and I&O: Vital Signs Temp 97.9 F 10/02/17 06:34 Pulse 71 10/02/17 09:07 Resp 20 10/02/17 06:34 BP 121/72 10/02/17 09:07 Pulse Ox 95 10/02/17 06:34 Intake & Output 10/01/17 10/02/17 10/02/17 18:59 06:59 18:59 Intake Total 1200 240 Balance 1200 240 Weight (lbs) 149 lb Intake: Oral 1200 240 Other: # Voids 4 3 # Bowel Movements 1 Stool Characteristics Formed Formed Weight Source Bedscale Active Medications: Current Medications Acetaminophen (Tylenol) 650 mg PO Q4HR PRN PRN Reason: Pain or Fever >101 Stop: 11/13/17 22:40 Last Admin: 10/01/17 17:33 Dose: 650 mg Atorvastatin Calcium (Lipitor) 20 mg PO DAILY NICOLE; Protocol Stop: 11/14/17 12:44 Last Admin: 10/02/17 09:06 Dose: 20 mg Docusate Sodium (Colace) 100 mg PO BID [facility] Stop: 11/14/17 08:59 Last Admin: 10/02/17 09:06 Dose: 100 mg Levothyroxine Sodium 0.1 mg/ (Levothyroxine Sodium 0.025 mg) 0.125 mg PO QDAC NICOLE Stop: 11/17/17 07:29 Last Admin: 10/02/17 06:30 Dose: 0.125 mg Lisinopril (Zestril) 20 mg PO DAILY NICOLE Stop: 11/14/17 08:59 Last Admin: 10/02/17 09:06 Dose: 20 mg Lorazepam (Ativan) 0.5 mg PO Q4HR PRN; Protocol PRN Reason: Anxiety Stop: 10/14/17 22:44 Last Admin: 10/02/17 09:58 Dose: 0.5 mg Magnesium Hydroxide (Milk Of Magnesia) 30 ml PO HS PRN PRN Reason: Constipation Stop: 11/13/17 22:40 Metoprolol Tartrate (Lopressor) 25 mg PO DAILY [facility]ICOLE Stop: 11/14/17 08:59 Last Admin: 10/02/17 09:07 Dose: 25 mg Olanzapine 20 mg/ Olanzapine 5 (mg) 25 mg PO DAILY [facility]ICO[facility] Stop: 11/25/17 08:59 Last Admin: 10/02/17 09:07 Dose: 25 mg Sodium Chloride (Nacl Tab) 1 gm PO TID NICOLE Stop: 11/14/17 08:59 Last Admin: 10/02/17 09:07 Dose: 1 gm Zolpidem Tartrate (Ambien) 5 mg PO HS PRN PRN Reason: Insomnia Stop: 11/13/17 22:44 Last Admin: 10/01/17 21:37 Dose: 5 mg General: alert HEENT: NC/AT, PERRLA Neck: Supple Lungs: CTAB Cardiovascular: RRR, Normal S1, Normal S2, without murmur Abdomen: soft, non-tender, non-distended, positive bowel sound Extremities: excoriation Neurological: alert - Procedures Procedures: Procedures Procedure Code Date APPENDECTOMY ADD-ON 90232 08/04/15 BYPASS TRANSVERSE COLON TO CUTANEOUS, OPEN APPROACH [id number] 08/04/15 COLOSTOMY 73680 08/04/15 EXCISION OF LARGE INTESTINE, OPEN APPROACH [id number] 08/04/15 GROUP PSYCHOTHERAPY 81788 07/31/15 GROUP PSYCHOTHERAPY GZHZZZZ 07/31/15 GROUP PSYCHOTHERAPY 62656 04/02/15 GROUP PSYCHOTHERAPY GZHZZZZ 04/02/15 OTHER GROUP THERAPY 94.44 11/07/14 PARTIAL REMOVAL OF COLON 99587 08/04/15 RECREATIONAL THERAPY 93.81 02/21/10 RESECTION OF APPENDIX, OPEN APPROACH [id number] 08/04/15 Internal Medicine Assmt/Plan - Assessment Assessment: MRSA NARES htn hypothyroidism diverting colostomy dmenetia obesity anemia hyponatremia hyperglycemia - Plan Plan: fall precautions continue current plan of care Nutritional Asmnt/Malnutr-PDOC - Dietary Evaluation Malnutrition Findings (Please click <Entered> for more info): Nutritional Asmnt/Malnutrition Start: 09/18/17 14: 05 Text: Status: Complete Freq: Protocol: Document 09/18/17 14:06 EDWIN (Rec: 09/18/17 14:22 TATIANAG [email or web address]) Nutritional Asmnt/Malnutrition Patient General Information Nutritional Screening Moderate Risk Diagnosis psychosis Pertinent Medical Hx/Surgical Hx HTN, thyroid disorder, cardiomegaly, hypothyroidism, rectal prolapse, femal geital prolapse, hyponatremia, schizophrenia, ptosis, schizophrenia Subjective Information Per EMR, PO intake 100% of meals. Per nurse note, pt was confused and rambling, difficult to understand her. Current Diet Order/ Nutrition Support [facility] soft ground Pertinent Medications levothyroixine, nacl Pertinent Labs 09/17 Na 132, Cr 0.5, glucose 98 09/14 Na 124, Cl 91, Cr 0.5, glucose 106, A1c 5.8 Nutritional Hx/Data Height 6 ft 3 in Height (Calculated Centimeters) 190.5 Current Weight (lbs) 149 lb Weight (Calculated Kilograms) 67.6 Weight (Calculated Grams) 77276.3 [place] Body Weight 196 Body Mass Index (BMI) 18.6 Weight Status Approriate GI Symptoms GI Symptoms None Last BM 09/16 Difficult in: None Skin Integrity/Comment: dryness, Fabrizio 19 Current %PO Good (75-100%) Estimated Nutritional Goals BEE in Kcals: Using Current wt Calories/Kcals/Kg 27-32 Kcals Calculated 6190-9790 Protein: Using Current wt Protein g/k-1.2 Protein Calculated 68-82 Fluid: ml 1836-2176ml (1ml/kcal) Nutritional Problem No current Nutrition Prob Problem N/A Malnutrition Alert Is there a minimum of two criteria No selected? Query Text:Check all the applicable criteria. A minimum of two criteria are recommended for diagnosis of either severe or non-severe malnutrition. Malnutrition Related to Morbid Obesity Malnutrition related to morbid obesity No Intervention/Recommendation Comments 1. Continue with [facility] soft ground diet as ordered. 2. Monitor PO intake, wt, labs and skin integrity 3. F/U as low risk in 7 days, 09/25 Expected Outcomes/Goals Expected Outcomes/Goals 1. PO intake to meet at least 75% of nutritional needs. 2. Wt stability, skin to remain intact, labs to approach WNL.
--- NOTE | 2017-10-02 23:04 | Progress Notes ---
DATE: 10/02/2017 Case was discussed with staff of the patient and reviewed records. The patient continues to have poor insight. Continues to be rambling, urinating on the floor, unpredictable, impulsive, needing redirection. Continues to be unable to participate in meaningful conversation or make safe plan for self-care. No side effects of the medication, no sedation, no nausea, and no extrapyramidal symptoms. We will continue to work with the patient in group therapy, milieu therapy, and adjust medication as needed. JOB# [id number]
[2017-10-03] MEDS: Atorvastatin Calcium 10 MG TAB PO SCH (09:12)
--- NOTE | 2017-10-03 11:55 | Progress Notes ---
DATE: 09/30/2017 SUBJECTIVE: Chart reviewed and the patient interviewed. Also discussed the patient's condition with the staff and reviewed records and labs. ____. Easily agitated. The patient also has difficulty following staff directions. ____. Otherwise is compliant with her psychiatric medications with no side effects of medications. ____. TREATMENT PLAN: ____ condition closely. Also, continue adjusting psychotropic medications and working on behavioral modification. JOB# [id number]
--- NOTE | 2017-10-03 15:12 | Internal Medicine Prog Note ---
Internal Medicine Subjective - Subjective Service Date: 10/03/17 Patient is:: awake, verbal, interactive Patient Complaints of:: congestion Per staff patient has:: no adverse event, no episodes of fall, poor appetite, tolerating meds Internal Medicine Objective - Results Result Diagrams: 09/17/17 07:20 09/17/17 07:20 Recent Labs: Laboratory Last Values WBC 4.3 Th/cmm (4.8-10.8) L 09/17/17 07:20 RBC 4.11 Mil/cmm (3.80-5.20) 09/17/17 07:20 Hgb 12.1 gm/dL (12-16) 09/17/17 07:20 Hct 35.1 % (41.0-60) L 09/17/17 07:20 MCV 85.3 fl (81-100) 09/17/17 07:20 MCH 29.5 pg (27.0-31.0) 09/17/17 07:20 MCHC Differential 34.6 pg (28.0-36.0) 09/17/17 07:20 RDW 12.1 % (11.5-20.0) 09/17/17 07:20 Plt Count 257 Th/cmm (150-400) 09/17/17 07:20 MPV 7.4 fl 09/17/17 07:20 Neutrophils % 47.3 % (40.0-80.0) 09/17/17 07:20 Lymphocytes % 38.6 % (20.0-50.0) 09/17/17 07:20 Monocytes % 10.2 % (2.0-10.0) H 09/17/17 07:20 Eosinophils % 2.5 % (0.0-5.0) 09/17/17 07:20 Basophils % 1.4 % (0.0-2.0) 09/17/17 07:20 Sodium 132 mEq/L (136-145) L 09/17/17 07:20 Potassium 4.1 mEq/L (3.5-5.1) 09/17/17 07:20 Chloride 98 mEq/L (98-107) 09/17/17 07:20 Carbon Dioxide 27.6 mEq/L (21.0-31.0) 09/17/17 07:20 Anion Gap 10.5 (7.0-16.0) 09/17/17 07:20 BUN 12 mg/dL (7-25) 09/17/17 07:20 Creatinine 0.5 mg/dL (0.6-1.2) L 09/17/17 07:20 Est GFR ( Amer) TNP 09/17/17 07:20 Est GFR (Non-Af Amer) TNP 09/17/17 07:20 BUN/Creatinine Ratio 24.0 09/17/17 07:20 Glucose 98 mg/dL (70-105) 09/17/17 07:20 Hemoglobin A1c % 5.8 % (4.0-6.0) 09/14/17 19:15 Calcium 9.5 mg/dL (8.6-10.3) 09/17/17 07:20 Total Bilirubin 0.4 mg/dL (0.3-1.0) 09/14/17 19:15 AST 16 U/L (13-39) 09/14/17 19:15 ALT 11 U/L (7-52) 09/14/17 19:15 Alkaline Phosphatase 94 U/L (34-104) 09/14/17 19:15 Total Protein 8.1 gm/dL (6.0-8.3) 09/14/17 19:15 Albumin 4.4 gm/dL (3.7-5.3) 09/14/17 19:15 Globulin 3.7 gm/dL 09/14/17 19:15 Albumin/Globulin Ratio 1.2 (1.0-1.8) 09/14/17 19:15 Triglycerides 267 mg/dL (<150) H 09/14/17 19:15 Cholesterol 232 mg/dL (<200) H 09/14/17 19:15 LDL Cholesterol Direct 154 mg/dL (75-193) 09/14/17 19:15 HDL Cholesterol 52 mg/dL (23-92) 09/14/17 19:15 TSH 0.80 uIU/ml (0.34-5.60) 09/14/17 19:15 Urine Source CLEAN C 09/14/17 19:20 Urine Color YELLOW 09/14/17 19:20 Urine Clarity CLEAR (CLEAR) 09/14/17 19:20 Urine pH 5.5 (4.6 - 8.0) 09/14/17 19:20 Ur Specific [place] <= 1.005 (1.005-1.030) 09/14/17 19:20 Urine Protein NEGATIVE mg/dL (NEGATIVE) 09/14/17 19:20 Urine Glucose (UA) NEGATIVE mg/dL (NEGATIVE) 09/14/17 19:20 Urine Ketones NEGATIVE mg/dL (NEGATIVE) 09/14/17 19:20 Urine Blood NEGATIVE (NEGATIVE) 09/14/17 19:20 Urine Nitrate NEGATIVE (NEGATIVE) 09/14/17 19:20 Urine Bilirubin NEGATIVE (NEGATIVE) 09/14/17 19:20 Urine Urobilinogen 0.2 E.U./dL (0.2 - 1.0) 09/14/17 19:20 Ur Leukocyte Esterase TRACE (NEGATIVE) H 09/14/17 19:20 Urine RBC 0-2 /hpf (0-5) 09/14/17 19:20 Urine WBC 0-2 /hpf (0-5) 09/14/17 19:20 Ur Epithelial Cells OCCASIONAL /lpf (FEW) 09/14/17 19:20 Urine Bacteria NONE SEEN /hpf (NONE SEEN) 09/14/17 19:20 RPR NONREACTIVE (NONREACTIVE) 09/14/17 19:15 - Physical Exam Vitals and I&O: Vital Signs Temp 99.1 F 10/03/17 06:23 Pulse 82 10/03/17 09:13 Resp 20 10/03/17 06:23 BP 136/77 10/03/17 09:13 Pulse Ox 96 10/03/17 06:23 Intake & Output 10/02/17 10/03/17 10/03/17 18:59 06:59 18:59 Intake Total 1440 Balance 1440 Weight (lbs) 149 lb Intake: Oral 1440 Other: # Voids 3 # Bowel Movements 0 Stool Characteristics Formed Formed Formed Weight Source Bedscale Active Medications: Current Medications Acetaminophen (Tylenol) 650 mg PO Q4HR PRN PRN Reason: Pain or Fever >101 Stop: 11/13/17 22:40 Last Admin: 10/01/17 17:33 Dose: 650 mg Atorvastatin Calcium (Lipitor) 20 mg PO DAILY NICOLE; Protocol Stop: 11/14/17 12:44 Last Admin: 10/03/17 09:12 Dose: 20 mg Docusate Sodium (Colace) 100 mg PO BID [facility] Stop: 11/14/17 08:59 Last Admin: 10/03/17 09:13 Dose: 100 mg Levothyroxine Sodium 0.1 mg/ (Levothyroxine Sodium 0.025 mg) 0.125 mg PO QDAC NICOLE Stop: 11/17/17 07:29 Last Admin: 10/03/17 06:43 Dose: 0.125 mg Lisinopril (Zestril) 20 mg PO DAILY NICOLE Stop: 11/14/17 08:59 Last Admin: 10/03/17 09:13 Dose: 20 mg Lorazepam (Ativan) 0.5 mg PO Q4HR PRN; Protocol PRN Reason: Anxiety Stop: 10/14/17 22:44 Last Admin: 10/02/17 09:58 Dose: 0.5 mg Magnesium Hydroxide (Milk Of Magnesia) 30 ml PO HS PRN PRN Reason: Constipation Stop: 11/13/17 22:40 Metoprolol Tartrate (Lopressor) 25 mg PO DAILY NICOLE Stop: 11/14/17 08:59 Last Admin: 10/03/17 09:13 Dose: 25 mg Olanzapine 20 mg/ Olanzapine 5 (mg) 25 mg PO DAILY NICOLE Stop: 11/25/17 08:59 Last Admin: 10/03/17 09:13 Dose: 25 mg Sodium Chloride (Nacl Tab) 1 gm PO TID NICOLE Stop: 11/14/17 08:59 Last Admin: 10/03/17 09:14 Dose: 1 gm Zolpidem Tartrate (Ambien) 5 mg PO HS PRN PRN Reason: Insomnia Stop: 11/13/17 22:44 Last Admin: 10/02/17 20:49 Dose: 5 mg General: alert HEENT: NC/AT, PERRLA Neck: Supple Lungs: CTAB Cardiovascular: RRR, Normal S1, Normal S2, without murmur Abdomen: soft, non-tender, non-distended, positive bowel sound Extremities: excoriation Neurological: alert - Procedures Procedures: Procedures Procedure Code Date APPENDECTOMY ADD-ON 06509 08/04/15 BYPASS TRANSVERSE COLON TO CUTANEOUS, OPEN APPROACH [id number] 08/04/15 COLOSTOMY 71296 08/04/15 EXCISION OF LARGE INTESTINE, OPEN APPROACH [id number] 08/04/15 GROUP PSYCHOTHERAPY 91480 07/31/15 GROUP PSYCHOTHERAPY GZHZZZZ 07/31/15 GROUP PSYCHOTHERAPY 50252 04/02/15 GROUP PSYCHOTHERAPY GZHZZZZ 04/02/15 OTHER GROUP THERAPY 94.44 11/07/14 PARTIAL REMOVAL OF COLON 09299 08/04/15 RECREATIONAL THERAPY 93.81 02/21/10 RESECTION OF APPENDIX, OPEN APPROACH [id number] 08/04/15 Internal Medicine Assmt/Plan - Assessment Assessment: MRSA NARES htn hypothyroidism diverting colostomy dmenetia obesity anemia hyponatremia hyperglycemia - Plan Plan: fall precautions continue current plan of care Nutritional Asmnt/Malnutr-PDOC - Dietary Evaluation Malnutrition Findings (Please click <Entered> for more info): Nutritional Asmnt/Malnutrition Start: 09/18/17 14: 05 Text: Status: Complete Freq: Protocol: Document 09/18/17 14:06 EDWIN (Rec: 09/18/17 14:22 TATIANAG [email or web address]) Nutritional Asmnt/Malnutrition Patient General Information Nutritional Screening Moderate Risk Diagnosis psychosis Pertinent Medical Hx/Surgical Hx HTN, thyroid disorder, cardiomegaly, hypothyroidism, rectal prolapse, femal geital prolapse, hyponatremia, schizophrenia, ptosis, schizophrenia Subjective Information Per EMR, PO intake 100% of meals. Per nurse note, pt was confused and rambling, difficult to understand her. Current Diet Order/ Nutrition Support mech soft ground Pertinent Medications levothyroixine, nacl Pertinent Labs 09/17 Na 132, Cr 0.5, glucose 98 09/14 Na 124, Cl 91, Cr 0.5, glucose 106, A1c 5.8 Nutritional Hx/Data Height 6 ft 3 in Height (Calculated Centimeters) 190.5 Current Weight (lbs) 149 lb Weight (Calculated Kilograms) 67.6 Weight (Calculated Grams) 56867.3 [place] Body Weight 196 Body Mass Index (BMI) 18.6 Weight Status Approriate GI Symptoms GI Symptoms None Last BM 09/16 Difficult in: None Skin Integrity/Comment: dryness, Fabrizio 19 Current %PO Good (75-100%) Estimated Nutritional Goals BEE in Kcals: Using Current wt Calories/Kcals/Kg 27-32 Kcals Calculated 5268-3928 Protein: Using Current wt Protein g/k-1.2 Protein Calculated 68-82 Fluid: ml 1836-2176ml (1ml/kcal) Nutritional Problem No current Nutrition Prob Problem N/A Malnutrition Alert Is there a minimum of two criteria No selected? Query Text:Check all the applicable criteria. A minimum of two criteria are recommended for diagnosis of either severe or non-severe malnutrition. Malnutrition Related to Morbid Obesity Malnutrition related to morbid obesity No Intervention/Recommendation Comments 1. Continue with [facility] soft ground diet as ordered. 2. Monitor PO intake, wt, labs and skin integrity 3. F/U as low risk in 7 days, 09/25 Expected Outcomes/Goals Expected Outcomes/Goals 1. PO intake to meet at least 75% of nutritional needs. 2. Wt stability, skin to remain intact, labs to approach WNL.
--- NOTE | 2017-10-04 00:53 | Progress Notes ---
DATE: 10/03/2017 SUBJECTIVE: Case was discussed with staff of the patient, reviewed records. The patient continues to have poor insight, unpredictable, impulsive, rambling speech, and following direction. In general, she is a bit more mellow. She is sleeping better and eating better. No side effects with the medication, no sedation, no nausea, and no extrapyramidal symptoms. She continues to have poor insight. We will continue to work with the patient in group therapy, milieu therapy, and adjust the medications as needed. JOB# [id number]
[2017-10-04] MEDS: Atorvastatin Calcium 10 MG TAB PO SCH (09:06)
--- NOTE | 2017-10-04 09:14 | Progress Notes ---
DATE: 10/04/2017 Case was discussed with staff of the patient, reviewed records. The patient continues to have some irritability, continues to be rambling, unpredictable, impulsive, though she is somewhat calmer, easier to redirect, sleeping better, eating better. She can feed herself. She does have a hole in the soft palate in her mouth. No side effects with the medication. No sedation. No nausea. No extrapyramidal symptoms. We will continue outpatient group therapy, milieu therapy, and adjust medication as needed. JOB# [id number]
--- NOTE | 2017-10-04 19:02 | Internal Medicine Prog Note ---
Internal Medicine Subjective - Subjective Service Date: 10/04/17 Patient is:: awake, verbal, interactive Patient Complaints of:: congestion Per staff patient has:: no adverse event, no episodes of fall, poor appetite, tolerating meds Internal Medicine Objective - Results Result Diagrams: 09/17/17 07:20 09/17/17 07:20 Recent Labs: Laboratory Last Values WBC 4.3 Th/cmm (4.8-10.8) L 09/17/17 07:20 RBC 4.11 Mil/cmm (3.80-5.20) 09/17/17 07:20 Hgb 12.1 gm/dL (12-16) 09/17/17 07:20 Hct 35.1 % (41.0-60) L 09/17/17 07:20 MCV 85.3 fl (81-100) 09/17/17 07:20 MCH 29.5 pg (27.0-31.0) 09/17/17 07:20 MCHC Differential 34.6 pg (28.0-36.0) 09/17/17 07:20 RDW 12.1 % (11.5-20.0) 09/17/17 07:20 Plt Count 257 Th/cmm (150-400) 09/17/17 07:20 MPV 7.4 fl 09/17/17 07:20 Neutrophils % 47.3 % (40.0-80.0) 09/17/17 07:20 Lymphocytes % 38.6 % (20.0-50.0) 09/17/17 07:20 Monocytes % 10.2 % (2.0-10.0) H 09/17/17 07:20 Eosinophils % 2.5 % (0.0-5.0) 09/17/17 07:20 Basophils % 1.4 % (0.0-2.0) 09/17/17 07:20 Sodium 132 mEq/L (136-145) L 09/17/17 07:20 Potassium 4.1 mEq/L (3.5-5.1) 09/17/17 07:20 Chloride 98 mEq/L (98-107) 09/17/17 07:20 Carbon Dioxide 27.6 mEq/L (21.0-31.0) 09/17/17 07:20 Anion Gap 10.5 (7.0-16.0) 09/17/17 07:20 BUN 12 mg/dL (7-25) 09/17/17 07:20 Creatinine 0.5 mg/dL (0.6-1.2) L 09/17/17 07:20 Est GFR ( Amer) TNP 09/17/17 07:20 Est GFR (Non-Af Amer) TNP 09/17/17 07:20 BUN/Creatinine Ratio 24.0 09/17/17 07:20 Glucose 98 mg/dL (70-105) 09/17/17 07:20 Hemoglobin A1c % 5.8 % (4.0-6.0) 09/14/17 19:15 Calcium 9.5 mg/dL (8.6-10.3) 09/17/17 07:20 Total Bilirubin 0.4 mg/dL (0.3-1.0) 09/14/17 19:15 AST 16 U/L (13-39) 09/14/17 19:15 ALT 11 U/L (7-52) 09/14/17 19:15 Alkaline Phosphatase 94 U/L (34-104) 09/14/17 19:15 Total Protein 8.1 gm/dL (6.0-8.3) 09/14/17 19:15 Albumin 4.4 gm/dL (3.7-5.3) 09/14/17 19:15 Globulin 3.7 gm/dL 09/14/17 19:15 Albumin/Globulin Ratio 1.2 (1.0-1.8) 09/14/17 19:15 Triglycerides 267 mg/dL (<150) H 09/14/17 19:15 Cholesterol 232 mg/dL (<200) H 09/14/17 19:15 LDL Cholesterol Direct 154 mg/dL (75-193) 09/14/17 19:15 HDL Cholesterol 52 mg/dL (23-92) 09/14/17 19:15 TSH 0.80 uIU/ml (0.34-5.60) 09/14/17 19:15 Urine Source CLEAN C 09/14/17 19:20 Urine Color YELLOW 09/14/17 19:20 Urine Clarity CLEAR (CLEAR) 09/14/17 19:20 Urine pH 5.5 (4.6 - 8.0) 09/14/17 19:20 Ur Specific [place] <= 1.005 (1.005-1.030) 09/14/17 19:20 Urine Protein NEGATIVE mg/dL (NEGATIVE) 09/14/17 19:20 Urine Glucose (UA) NEGATIVE mg/dL (NEGATIVE) 09/14/17 19:20 Urine Ketones NEGATIVE mg/dL (NEGATIVE) 09/14/17 19:20 Urine Blood NEGATIVE (NEGATIVE) 09/14/17 19:20 Urine Nitrate NEGATIVE (NEGATIVE) 09/14/17 19:20 Urine Bilirubin NEGATIVE (NEGATIVE) 09/14/17 19:20 Urine Urobilinogen 0.2 E.U./dL (0.2 - 1.0) 09/14/17 19:20 Ur Leukocyte Esterase TRACE (NEGATIVE) H 09/14/17 19:20 Urine RBC 0-2 /hpf (0-5) 09/14/17 19:20 Urine WBC 0-2 /hpf (0-5) 09/14/17 19:20 Ur Epithelial Cells OCCASIONAL /lpf (FEW) 09/14/17 19:20 Urine Bacteria NONE SEEN /hpf (NONE SEEN) 09/14/17 19:20 RPR NONREACTIVE (NONREACTIVE) 09/14/17 19:15 - Physical Exam Vitals and I&O: Vital Signs Temp 98.5 F 10/04/17 14:00 Pulse 91 10/04/17 14:00 Resp 18 10/04/17 14:00 BP 111/67 10/04/17 14:00 Pulse Ox 96 10/04/17 14:00 Intake & Output 10/04/17 10/04/17 10/05/17 06:59 18:59 06:59 Intake Total 240 2400 Output Total 100 Balance 240 2300 Weight (lbs) 149 lb Intake: Oral 240 2400 Output: Urine 100 Other: # Voids 3 4 # Bowel Movements 0 Stool Characteristics Liquid Liquid Weight Source Bedscale Active Medications: Current Medications Acetaminophen (Tylenol) 650 mg PO Q4HR PRN PRN Reason: Pain or Fever >101 Stop: 11/13/17 22:40 Last Admin: 10/01/17 17:33 Dose: 650 mg Atorvastatin Calcium (Lipitor) 20 mg PO DAILY NICOLE; Protocol Stop: 11/14/17 12:44 Last Admin: 10/04/17 09:06 Dose: 20 mg Docusate Sodium (Colace) 100 mg PO BID NICOLE Stop: 11/14/17 08:59 Last Admin: 10/04/17 16:35 Dose: 100 mg Levothyroxine Sodium 0.1 mg/ (Levothyroxine Sodium 0.025 mg) 0.125 mg PO QDAC NICOLE Stop: 11/17/17 07:29 Last Admin: 10/04/17 06:45 Dose: 0.125 mg Lisinopril (Zestril) 20 mg PO DAILY NICOLE Stop: 11/14/17 08:59 Last Admin: 10/04/17 09:14 Dose: 20 mg Lorazepam (Ativan) 0.5 mg PO Q4HR PRN; Protocol PRN Reason: Anxiety Stop: 10/14/17 22:44 Last Admin: 10/03/17 20:41 Dose: 0.5 mg Magnesium Hydroxide (Milk Of Magnesia) 30 ml PO HS PRN PRN Reason: Constipation Stop: 11/13/17 22:40 Metoprolol Tartrate (Lopressor) 25 mg PO DAILY NICOLE Stop: 11/14/17 08:59 Last Admin: 10/04/17 09:15 Dose: 25 mg Olanzapine 20 mg/ Olanzapine 5 (mg) 25 mg PO DAILY NICOLE Stop: 11/25/17 08:59 Last Admin: 10/04/17 08:59 Dose: 25 mg Sodium Chloride (Nacl Tab) 1 gm PO TID NICOLE Stop: 11/14/17 08:59 Last Admin: 10/04/17 13:18 Dose: 1 gm Zolpidem Tartrate (Ambien) 5 mg PO HS PRN PRN Reason: Insomnia Stop: 11/13/17 22:44 Last Admin: 10/03/17 20:41 Dose: 5 mg General: alert HEENT: NC/AT, PERRLA Neck: Supple Lungs: CTAB Cardiovascular: RRR, Normal S1, Normal S2, without murmur Abdomen: soft, non-tender, non-distended, positive bowel sound Extremities: excoriation Neurological: alert - Procedures Procedures: Procedures Procedure Code Date APPENDECTOMY ADD-ON 40665 08/04/15 BYPASS TRANSVERSE COLON TO CUTANEOUS, OPEN APPROACH [id number] 08/04/15 COLOSTOMY 84809 08/04/15 EXCISION OF LARGE INTESTINE, OPEN APPROACH [id number] 08/04/15 GROUP PSYCHOTHERAPY 88283 07/31/15 GROUP PSYCHOTHERAPY GZHZZZZ 07/31/15 GROUP PSYCHOTHERAPY 36577 04/02/15 GROUP PSYCHOTHERAPY GZHZZZZ 04/02/15 OTHER GROUP THERAPY 94.44 11/07/14 PARTIAL REMOVAL OF COLON 44228 08/04/15 RECREATIONAL THERAPY 93.81 02/21/10 RESECTION OF APPENDIX, OPEN APPROACH [id number] 08/04/15 Internal Medicine Assmt/Plan - Assessment Assessment: MRSA NARES htn hypothyroidism diverting colostomy dmenetia obesity anemia hyponatremia hyperglycemia - Plan Plan: fall precautions continue current plan of care Nutritional Asmnt/Malnutr-PDOC - Dietary Evaluation Malnutrition Findings (Please click <Entered> for more info): Nutritional Asmnt/Malnutrition Start: 09/18/17 14: 05 Text: Status: Complete Freq: Protocol: Document 09/18/17 14:06 EDWIN (Rec: 09/18/17 14:22 JANESSA [email or web address]) Nutritional Asmnt/Malnutrition Patient General Information Nutritional Screening Moderate Risk Diagnosis psychosis Pertinent Medical Hx/Surgical Hx HTN, thyroid disorder, cardiomegaly, hypothyroidism, rectal prolapse, femal geital prolapse, hyponatremia, schizophrenia, ptosis, schizophrenia Subjective Information Per EMR, PO intake 100% of meals. Per nurse note, pt was confused and rambling, difficult to understand her. Current Diet Order/ Nutrition Support mech soft ground Pertinent Medications levothyroixine, nacl Pertinent Labs 09/17 Na 132, Cr 0.5, glucose 98 09/14 Na 124, Cl 91, Cr 0.5, glucose 106, A1c 5.8 Nutritional Hx/Data Height 6 ft 3 in Height (Calculated Centimeters) 190.5 Current Weight (lbs) 149 lb Weight (Calculated Kilograms) 67.6 Weight (Calculated Grams) 19487.3 [place] Body Weight 196 Body Mass Index (BMI) 18.6 Weight Status Approriate GI Symptoms GI Symptoms None Last BM 09/16 Difficult in: None Skin Integrity/Comment: dryness, Fabrizio 19 Current %PO Good (75-100%) Estimated Nutritional Goals BEE in Kcals: Using Current wt Calories/Kcals/Kg 27-32 Kcals Calculated 2405-6020 Protein: Using Current wt Protein g/k-1.2 Protein Calculated 68-82 Fluid: ml 1836-2176ml (1ml/kcal) Nutritional Problem No current Nutrition Prob Problem N/A Malnutrition Alert Is there a minimum of two criteria No selected? Query Text:Check all the applicable criteria. A minimum of two criteria are recommended for diagnosis of either severe or non-severe malnutrition. Malnutrition Related to Morbid Obesity Malnutrition related to morbid obesity No Intervention/Recommendation Comments 1. Continue with [facility] soft ground diet as ordered. 2. Monitor PO intake, wt, labs and skin integrity 3. F/U as low risk in 7 days, 09/25 Expected Outcomes/Goals Expected Outcomes/Goals 1. PO intake to meet at least 75% of nutritional needs. 2. Wt stability, skin to remain intact, labs to approach WNL.
[2017-10-05] MEDS: Atorvastatin Calcium 10 MG TAB PO SCH (08:49)
--- NOTE | 2017-10-05 13:26 | Internal Medicine Prog Note ---
Internal Medicine Subjective - Subjective Service Date: 10/05/17 Patient is:: awake, verbal, interactive Patient Complaints of:: congestion Per staff patient has:: no adverse event, no episodes of fall, poor appetite, tolerating meds Internal Medicine Objective - Results Result Diagrams: 09/17/17 07:20 09/17/17 07:20 Recent Labs: Laboratory Last Values WBC 4.3 Th/cmm (4.8-10.8) L 09/17/17 07:20 RBC 4.11 Mil/cmm (3.80-5.20) 09/17/17 07:20 Hgb 12.1 gm/dL (12-16) 09/17/17 07:20 Hct 35.1 % (41.0-60) L 09/17/17 07:20 MCV 85.3 fl (81-100) 09/17/17 07:20 MCH 29.5 pg (27.0-31.0) 09/17/17 07:20 MCHC Differential 34.6 pg (28.0-36.0) 09/17/17 07:20 RDW 12.1 % (11.5-20.0) 09/17/17 07:20 Plt Count 257 Th/cmm (150-400) 09/17/17 07:20 MPV 7.4 fl 09/17/17 07:20 Neutrophils % 47.3 % (40.0-80.0) 09/17/17 07:20 Lymphocytes % 38.6 % (20.0-50.0) 09/17/17 07:20 Monocytes % 10.2 % (2.0-10.0) H 09/17/17 07:20 Eosinophils % 2.5 % (0.0-5.0) 09/17/17 07:20 Basophils % 1.4 % (0.0-2.0) 09/17/17 07:20 Sodium 132 mEq/L (136-145) L 09/17/17 07:20 Potassium 4.1 mEq/L (3.5-5.1) 09/17/17 07:20 Chloride 98 mEq/L (98-107) 09/17/17 07:20 Carbon Dioxide 27.6 mEq/L (21.0-31.0) 09/17/17 07:20 Anion Gap 10.5 (7.0-16.0) 09/17/17 07:20 BUN 12 mg/dL (7-25) 09/17/17 07:20 Creatinine 0.5 mg/dL (0.6-1.2) L 09/17/17 07:20 Est GFR ( Amer) TNP 09/17/17 07:20 Est GFR (Non-Af Amer) TNP 09/17/17 07:20 BUN/Creatinine Ratio 24.0 09/17/17 07:20 Glucose 98 mg/dL (70-105) 09/17/17 07:20 Hemoglobin A1c % 5.8 % (4.0-6.0) 09/14/17 19:15 Calcium 9.5 mg/dL (8.6-10.3) 09/17/17 07:20 Total Bilirubin 0.4 mg/dL (0.3-1.0) 09/14/17 19:15 AST 16 U/L (13-39) 09/14/17 19:15 ALT 11 U/L (7-52) 09/14/17 19:15 Alkaline Phosphatase 94 U/L (34-104) 09/14/17 19:15 Total Protein 8.1 gm/dL (6.0-8.3) 09/14/17 19:15 Albumin 4.4 gm/dL (3.7-5.3) 09/14/17 19:15 Globulin 3.7 gm/dL 09/14/17 19:15 Albumin/Globulin Ratio 1.2 (1.0-1.8) 09/14/17 19:15 Triglycerides 267 mg/dL (<150) H 09/14/17 19:15 Cholesterol 232 mg/dL (<200) H 09/14/17 19:15 LDL Cholesterol Direct 154 mg/dL (75-193) 09/14/17 19:15 HDL Cholesterol 52 mg/dL (23-92) 09/14/17 19:15 TSH 0.80 uIU/ml (0.34-5.60) 09/14/17 19:15 Urine Source CLEAN C 09/14/17 19:20 Urine Color YELLOW 09/14/17 19:20 Urine Clarity CLEAR (CLEAR) 09/14/17 19:20 Urine pH 5.5 (4.6 - 8.0) 09/14/17 19:20 Ur Specific [place] <= 1.005 (1.005-1.030) 09/14/17 19:20 Urine Protein NEGATIVE mg/dL (NEGATIVE) 09/14/17 19:20 Urine Glucose (UA) NEGATIVE mg/dL (NEGATIVE) 09/14/17 19:20 Urine Ketones NEGATIVE mg/dL (NEGATIVE) 09/14/17 19:20 Urine Blood NEGATIVE (NEGATIVE) 09/14/17 19:20 Urine Nitrate NEGATIVE (NEGATIVE) 09/14/17 19:20 Urine Bilirubin NEGATIVE (NEGATIVE) 09/14/17 19:20 Urine Urobilinogen 0.2 E.U./dL (0.2 - 1.0) 09/14/17 19:20 Ur Leukocyte Esterase TRACE (NEGATIVE) H 09/14/17 19:20 Urine RBC 0-2 /hpf (0-5) 09/14/17 19:20 Urine WBC 0-2 /hpf (0-5) 09/14/17 19:20 Ur Epithelial Cells OCCASIONAL /lpf (FEW) 09/14/17 19:20 Urine Bacteria NONE SEEN /hpf (NONE SEEN) 09/14/17 19:20 RPR NONREACTIVE (NONREACTIVE) 09/14/17 19:15 - Physical Exam Vitals and I&O: Vital Signs Temp 97.3 F 10/05/17 06:35 Pulse 78 10/05/17 08:50 Resp 20 10/05/17 06:35 BP 122/67 10/05/17 08:50 Pulse Ox 95 10/05/17 06:35 Intake & Output 10/04/17 10/05/17 10/05/17 18:59 06:59 18:59 Intake Total 2400 Output Total 100 Balance 2300 Intake: Oral 2400 Output: Urine 100 Other: # Voids 4 Stool Characteristics Liquid Liquid Liquid Active Medications: Current Medications Acetaminophen (Tylenol) 650 mg PO Q4HR PRN PRN Reason: Pain or Fever >101 Stop: 11/13/17 22:40 Last Admin: 10/01/17 17:33 Dose: 650 mg Atorvastatin Calcium (Lipitor) 20 mg PO DAILY [facility]; Protocol Stop: 11/14/17 12:44 Last Admin: 10/05/17 08:49 Dose: 20 mg Docusate Sodium (Colace) 100 mg PO BID [facility] Stop: 11/14/17 08:59 Last Admin: 10/05/17 08:49 Dose: 100 mg Levothyroxine Sodium 0.1 mg/ (Levothyroxine Sodium 0.025 mg) 0.125 mg PO QDAC [facility] Stop: 11/17/17 07:29 Last Admin: 10/05/17 06:46 Dose: 0.125 mg Lisinopril (Zestril) 20 mg PO DAILY [facility] Stop: 11/14/17 08:59 Last Admin: 10/05/17 08:50 Dose: 20 mg Lorazepam (Ativan) 0.5 mg PO Q4HR PRN; Protocol PRN Reason: Anxiety Stop: 10/14/17 22:44 Last Admin: 10/03/17 20:41 Dose: 0.5 mg Magnesium Hydroxide (Milk Of Magnesia) 30 ml PO HS PRN PRN Reason: Constipation Stop: 11/13/17 22:40 Metoprolol Tartrate (Lopressor) 25 mg PO DAILY [facility] Stop: 11/14/17 08:59 Last Admin: 10/05/17 08:49 Dose: 25 mg Olanzapine 20 mg/ Olanzapine 5 (mg) 25 mg PO DAILY [facility] Stop: 11/25/17 08:59 Last Admin: 10/05/17 08:49 Dose: 25 mg Sodium Chloride (Nacl Tab) 1 gm PO TID [facility] Stop: 11/14/17 08:59 Last Admin: 10/05/17 08:49 Dose: 1 gm Zolpidem Tartrate (Ambien) 5 mg PO HS PRN PRN Reason: Insomnia Stop: 11/13/17 22:44 Last Admin: 10/04/17 20:55 Dose: 5 mg General: alert HEENT: NC/AT, PERRLA Neck: Supple Lungs: CTAB Cardiovascular: RRR, Normal S1, Normal S2, without murmur Abdomen: soft, non-tender, non-distended, positive bowel sound Extremities: excoriation Neurological: alert - Procedures Procedures: Procedures Procedure Code Date APPENDECTOMY ADD-ON 05422 08/04/15 BYPASS TRANSVERSE COLON TO CUTANEOUS, OPEN APPROACH [id number] 08/04/15 COLOSTOMY 61357 08/04/15 EXCISION OF LARGE INTESTINE, OPEN APPROACH [id number] 08/04/15 GROUP PSYCHOTHERAPY 89144 07/31/15 GROUP PSYCHOTHERAPY GZHZZZZ 07/31/15 GROUP PSYCHOTHERAPY 64104 04/02/15 GROUP PSYCHOTHERAPY GZHZZZZ 04/02/15 OTHER GROUP THERAPY 94.44 11/07/14 PARTIAL REMOVAL OF COLON 70747 08/04/15 RECREATIONAL THERAPY 93.81 02/21/10 RESECTION OF APPENDIX, OPEN APPROACH [id number] 08/04/15 Internal Medicine Assmt/Plan - Assessment Assessment: MRSA NARES htn hypothyroidism diverting colostomy dmenetia obesity anemia hyponatremia hyperglycemia - Plan Plan: fall precautions continue current plan of care Nutritional Asmnt/Malnutr-PDOC - Dietary Evaluation Malnutrition Findings (Please click <Entered> for more info): Nutritional Asmnt/Malnutrition Start: 09/18/17 14: 05 Text: Status: Complete Freq: Protocol: Document 09/18/17 14:06 EDWIN (Rec: 09/18/17 14:22 EDWIN [email or web address]) Nutritional Asmnt/Malnutrition Patient General Information Nutritional Screening Moderate Risk Diagnosis psychosis Pertinent Medical Hx/Surgical Hx HTN, thyroid disorder, cardiomegaly, hypothyroidism, rectal prolapse, femal geital prolapse, hyponatremia, schizophrenia, ptosis, schizophrenia Subjective Information Per EMR, PO intake 100% of meals. Per nurse note, pt was confused and rambling, difficult to understand her. Current Diet Order/ Nutrition Support mec soft ground Pertinent Medications levothyroixine, nacl Pertinent Labs 09/17 Na 132, Cr 0.5, glucose 98 09/14 Na 124, Cl 91, Cr 0.5, glucose 106, A1c 5.8 Nutritional Hx/Data Height 6 ft 3 in Height (Calculated Centimeters) 190.5 Current Weight (lbs) 149 lb Weight (Calculated Kilograms) 67.6 Weight (Calculated Grams) 74608.3 [place] Body Weight 196 Body Mass Index (BMI) 18.6 Weight Status Approriate GI Symptoms GI Symptoms None Last BM 09/16 Difficult in: None Skin Integrity/Comment: dryness, Fabrizio 19 Current %PO Good (75-100%) Estimated Nutritional Goals BEE in Kcals: Using Current wt Calories/Kcals/Kg 27-32 Kcals Calculated 9962-4338 Protein: Using Current wt Protein g/k-1.2 Protein Calculated 68-82 Fluid: ml 1836-2176ml (1ml/kcal) Nutritional Problem No current Nutrition Prob Problem N/A Malnutrition Alert Is there a minimum of two criteria No selected? Query Text:Check all the applicable criteria. A minimum of two criteria are recommended for diagnosis of either severe or non-severe malnutrition. Malnutrition Related to Morbid Obesity Malnutrition related to morbid obesity No Intervention/Recommendation Comments 1. Continue with [facility] soft ground diet as ordered. 2. Monitor PO intake, wt, labs and skin integrity 3. F/U as low risk in 7 days, 09/25 Expected Outcomes/Goals Expected Outcomes/Goals 1. PO intake to meet at least 75% of nutritional needs. 2. Wt stability, skin to remain intact, labs to approach WNL.
--- NOTE | 2017-10-05 21:34 | Progress Notes ---
DATE: 10/05/2017 Case was discussed with staff of the patient, reviewed records. The patient continues to be rambling, continues to be unpredictable and impulsive, ____ being on the floor, hard to redirect, continues to have poor insight, tolerating increase in Zyprexa with no side effects, no sedation, no nausea and no extrapyramidal symptoms. We will continue the patient in group therapy, milieu therapy, adjust the medication as needed. JOB# [id number]
[2017-10-06] MEDS: Atorvastatin Calcium 10 MG TAB PO SCH (08:45)
[2017-10-06] MEDS ORDERED: Haloperidol Lactate 5 mg/mL 1mL Vial ONE (11:54)
[2017-10-06] MEDS ORDERED: Haloperidol Lactate 5 mg/mL 1mL Vial IM ONE (11:56)
--- NOTE | 2017-10-06 12:19 | Internal Medicine Prog Note ---
Internal Medicine Subjective - Subjective Service Date: 10/06/17 Patient seen and examined:: with staff Patient is:: awake, verbal, interactive Patient Complaints of:: congestion Per staff patient has:: no adverse event, no episodes of fall, poor appetite, tolerating meds Internal Medicine Objective - Results Result Diagrams: 09/17/17 07:20 09/17/17 07:20 Recent Labs: Laboratory Last Values WBC 4.3 Th/cmm (4.8-10.8) L 09/17/17 07:20 RBC 4.11 Mil/cmm (3.80-5.20) 09/17/17 07:20 Hgb 12.1 gm/dL (12-16) 09/17/17 07:20 Hct 35.1 % (41.0-60) L 09/17/17 07:20 MCV 85.3 fl (81-100) 09/17/17 07:20 MCH 29.5 pg (27.0-31.0) 09/17/17 07:20 MCHC Differential 34.6 pg (28.0-36.0) 09/17/17 07:20 RDW 12.1 % (11.5-20.0) 09/17/17 07:20 Plt Count 257 Th/cmm (150-400) 09/17/17 07:20 MPV 7.4 fl 09/17/17 07:20 Neutrophils % 47.3 % (40.0-80.0) 09/17/17 07:20 Lymphocytes % 38.6 % (20.0-50.0) 09/17/17 07:20 Monocytes % 10.2 % (2.0-10.0) H 09/17/17 07:20 Eosinophils % 2.5 % (0.0-5.0) 09/17/17 07:20 Basophils % 1.4 % (0.0-2.0) 09/17/17 07:20 Sodium 132 mEq/L (136-145) L 09/17/17 07:20 Potassium 4.1 mEq/L (3.5-5.1) 09/17/17 07:20 Chloride 98 mEq/L (98-107) 09/17/17 07:20 Carbon Dioxide 27.6 mEq/L (21.0-31.0) 09/17/17 07:20 Anion Gap 10.5 (7.0-16.0) 09/17/17 07:20 BUN 12 mg/dL (7-25) 09/17/17 07:20 Creatinine 0.5 mg/dL (0.6-1.2) L 09/17/17 07:20 Est GFR ( Amer) TNP 09/17/17 07:20 Est GFR (Non-Af Amer) TNP 09/17/17 07:20 BUN/Creatinine Ratio 24.0 09/17/17 07:20 Glucose 98 mg/dL (70-105) 09/17/17 07:20 Hemoglobin A1c % 5.8 % (4.0-6.0) 09/14/17 19:15 Calcium 9.5 mg/dL (8.6-10.3) 09/17/17 07:20 Total Bilirubin 0.4 mg/dL (0.3-1.0) 09/14/17 19:15 AST 16 U/L (13-39) 09/14/17 19:15 ALT 11 U/L (7-52) 09/14/17 19:15 Alkaline Phosphatase 94 U/L (34-104) 09/14/17 19:15 Total Protein 8.1 gm/dL (6.0-8.3) 09/14/17 19:15 Albumin 4.4 gm/dL (3.7-5.3) 09/14/17 19:15 Globulin 3.7 gm/dL 09/14/17 19:15 Albumin/Globulin Ratio 1.2 (1.0-1.8) 09/14/17 19:15 Triglycerides 267 mg/dL (<150) H 09/14/17 19:15 Cholesterol 232 mg/dL (<200) H 09/14/17 19:15 LDL Cholesterol Direct 154 mg/dL (75-193) 09/14/17 19:15 HDL Cholesterol 52 mg/dL (23-92) 09/14/17 19:15 TSH 0.80 uIU/ml (0.34-5.60) 09/14/17 19:15 Urine Source CLEAN C 09/14/17 19:20 Urine Color YELLOW 09/14/17 19:20 Urine Clarity CLEAR (CLEAR) 09/14/17 19:20 Urine pH 5.5 (4.6 - 8.0) 09/14/17 19:20 Ur Specific [place] <= 1.005 (1.005-1.030) 09/14/17 19:20 Urine Protein NEGATIVE mg/dL (NEGATIVE) 09/14/17 19:20 Urine Glucose (UA) NEGATIVE mg/dL (NEGATIVE) 09/14/17 19:20 Urine Ketones NEGATIVE mg/dL (NEGATIVE) 09/14/17 19:20 Urine Blood NEGATIVE (NEGATIVE) 09/14/17 19:20 Urine Nitrate NEGATIVE (NEGATIVE) 09/14/17 19:20 Urine Bilirubin NEGATIVE (NEGATIVE) 09/14/17 19:20 Urine Urobilinogen 0.2 E.U./dL (0.2 - 1.0) 09/14/17 19:20 Ur Leukocyte Esterase TRACE (NEGATIVE) H 09/14/17 19:20 Urine RBC 0-2 /hpf (0-5) 09/14/17 19:20 Urine WBC 0-2 /hpf (0-5) 09/14/17 19:20 Ur Epithelial Cells OCCASIONAL /lpf (FEW) 09/14/17 19:20 Urine Bacteria NONE SEEN /hpf (NONE SEEN) 09/14/17 19:20 RPR NONREACTIVE (NONREACTIVE) 09/14/17 19:15 - Physical Exam Vitals and I&O: Vital Signs Temp 98.1 F 10/06/17 06:48 Pulse 78 10/06/17 08:47 Resp 19 10/06/17 06:48 BP 118/71 10/06/17 08:47 Pulse Ox 98 10/06/17 06:48 Intake & Output 10/05/17 10/06/17 10/06/17 18:59 06:59 18:59 Intake Total 1800 Output Total 100 Balance 1700 Intake: Oral 1800 Output: Stool 100 Other: # Voids 6 Stool Characteristics Liquid Active Medications: Current Medications Acetaminophen (Tylenol) 650 mg PO Q4HR PRN PRN Reason: Pain or Fever >101 Stop: 11/13/17 22:40 Last Admin: 10/01/17 17:33 Dose: 650 mg Atorvastatin Calcium (Lipitor) 20 mg PO DAILY [facility]; Protocol Stop: 11/14/17 12:44 Last Admin: 10/06/17 08:45 Dose: 20 mg Docusate Sodium (Colace) 100 mg PO BID [facility] Stop: 11/14/17 08:59 Last Admin: 10/06/17 08:45 Dose: 100 mg Levothyroxine Sodium 0.1 mg/ (Levothyroxine Sodium 0.025 mg) 0.125 mg PO QDAC [facility] Stop: 11/17/17 07:29 Last Admin: 10/06/17 07:11 Dose: 0.125 mg Lisinopril (Zestril) 20 mg PO DAILY [facility] Stop: 11/14/17 08:59 Last Admin: 10/06/17 08:46 Dose: 20 mg Lorazepam (Ativan) 0.5 mg PO Q4HR PRN; Protocol PRN Reason: Anxiety Stop: 10/14/17 22:44 Last Admin: 10/05/17 20:14 Dose: 0.5 mg Magnesium Hydroxide (Milk Of Magnesia) 30 ml PO HS PRN PRN Reason: Constipation Stop: 11/13/17 22:40 Metoprolol Tartrate (Lopressor) 25 mg PO DAILY [facility] Stop: 11/14/17 08:59 Last Admin: 10/06/17 08:47 Dose: 25 mg Olanzapine 20 mg/ Olanzapine 5 (mg) 25 mg PO DAILY [facility] Stop: 11/25/17 08:59 Last Admin: 10/06/17 08:47 Dose: 25 mg Sodium Chloride (Nacl Tab) 1 gm PO TID [facility] Stop: 11/14/17 08:59 Last Admin: 10/06/17 08:49 Dose: 1 gm Valproate Sodium (Depakene) 250 mg PO BID [facility]; Protocol Stop: 12/05/17 16:59 Zolpidem Tartrate (Ambien) 5 mg PO HS PRN PRN Reason: Insomnia Stop: 11/13/17 22:44 Last Admin: 10/05/17 20:14 Dose: 5 mg General: alert HEENT: NC/AT, PERRLA Neck: Supple Lungs: CTAB Cardiovascular: RRR, Normal S1, Normal S2, without murmur Abdomen: soft, non-tender, non-distended, positive bowel sound Extremities: excoriation Neurological: alert - Procedures Procedures: Procedures Procedure Code Date APPENDECTOMY ADD-ON 38400 08/04/15 BYPASS TRANSVERSE COLON TO CUTANEOUS, OPEN APPROACH [id number] 08/04/15 COLOSTOMY 53769 08/04/15 EXCISION OF LARGE INTESTINE, OPEN APPROACH [id number] 08/04/15 GROUP PSYCHOTHERAPY 47643 07/31/15 GROUP PSYCHOTHERAPY GZHZZZZ 07/31/15 GROUP PSYCHOTHERAPY 65980 04/02/15 GROUP PSYCHOTHERAPY GZHZZZZ 04/02/15 OTHER GROUP THERAPY 94.44 11/07/14 PARTIAL REMOVAL OF COLON 51315 08/04/15 RECREATIONAL THERAPY 93.81 02/21/10 RESECTION OF APPENDIX, OPEN APPROACH [id number] 08/04/15 Internal Medicine Assmt/Plan - Assessment Assessment: MRSA NARES htn hypothyroidism diverting colostomy dmenetia obesity anemia hyponatremia hyperglycemia - Plan Plan: fall precautions continue current plan of care Nutritional Asmnt/Malnutr-PDOC - Dietary Evaluation Malnutrition Findings (Please click <Entered> for more info): Nutritional Asmnt/Malnutrition Start: 09/18/17 14: 05 Text: Status: Complete Freq: Protocol: Document 09/18/17 14:06 LCJANESSAG (Rec: 09/18/17 14:22 LCJANESSAG [email or web address]) Nutritional Asmnt/Malnutrition Patient General Information Nutritional Screening Moderate Risk Diagnosis psychosis Pertinent Medical Hx/Surgical Hx HTN, thyroid disorder, cardiomegaly, hypothyroidism, rectal prolapse, femal geital prolapse, hyponatremia, schizophrenia, ptosis, schizophrenia Subjective Information Per EMR, PO intake 100% of meals. Per nurse note, pt was confused and rambling, difficult to understand her. Current Diet Order/ Nutrition Support mec soft ground Pertinent Medications levothyroixine, nacl Pertinent Labs 09/17 Na 132, Cr 0.5, glucose 98 09/14 Na 124, Cl 91, Cr 0.5, glucose 106, A1c 5.8 Nutritional Hx/Data Height 6 ft 3 in Height (Calculated Centimeters) 190.5 Current Weight (lbs) 149 lb Weight (Calculated Kilograms) 67.6 Weight (Calculated Grams) 70189.3 [place] Body Weight 196 Body Mass Index (BMI) 18.6 Weight Status Approriate GI Symptoms GI Symptoms None Last BM 09/16 Difficult in: None Skin Integrity/Comment: Fabrizio wallis 19 Current %PO Good (75-100%) Estimated Nutritional Goals BEE in Kcals: Using Current wt Calories/Kcals/Kg 27-32 Kcals Calculated 8387-9541 Protein: Using Current wt Protein g/k-1.2 Protein Calculated 68-82 Fluid: ml 1836-2176ml (1ml/kcal) Nutritional Problem No current Nutrition Prob Problem N/A Malnutrition Alert Is there a minimum of two criteria No selected? Query Text:Check all the applicable criteria. A minimum of two criteria are recommended for diagnosis of either severe or non-severe malnutrition. Malnutrition Related to Morbid Obesity Malnutrition related to morbid obesity No Intervention/Recommendation Comments 1. Continue with the [facility] soft ground diet as ordered. 2. Monitor PO intake, wt, labs and skin integrity 3. F/U as low risk in 7 days, 09/25 Expected Outcomes/Goals Expected Outcomes/Goals 1. PO intake to meet at least 75% of nutritional needs. 2. Wt stability, skin to remain intact, labs to approach WNL.
--- NOTE | 2017-10-07 02:20 | Progress Notes ---
DATE: 10/06/2017 SUBJECTIVE: Case is discussed with the staff of the patient and reviewed records. The patient has been acting out. She is not showing any progress according to the staff. She continues to be agitated. Now, she is playing with her colostomy bag. She is naked from the waist down and acting inappropriately, bizarre, unable to make safe plan for her self-care, unpredictable, impulsive, needing redirection. ASSESSMENT AND PLAN: I will be adding Depakote to her medication to help stabilize her mood, 250 mg twice a day. She continues to be rambling with very poor insight, unable to make safe plan for her self-care. We will continue the have the patient in group therapy, milieu therapy, and adjust medication as needed. JOB# [id number]
[2017-10-07] MEDS: Atorvastatin Calcium 10 MG TAB PO SCH (09:05)
--- NOTE | 2017-10-07 13:44 | Internal Medicine Prog Note ---
Internal Medicine Subjective - Subjective Patient seen and examined:: with staff, chart reviewed Patient is:: awake, verbal, interactive Patient Complaints of:: congestion Per staff patient has:: no adverse event, no episodes of fall, poor appetite, tolerating meds Internal Medicine Objective - Results Result Diagrams: 09/17/17 07:20 09/17/17 07:20 Recent Labs: Laboratory Last Values WBC 4.3 Th/cmm (4.8-10.8) L 09/17/17 07:20 RBC 4.11 Mil/cmm (3.80-5.20) 09/17/17 07:20 Hgb 12.1 gm/dL (12-16) 09/17/17 07:20 Hct 35.1 % (41.0-60) L 09/17/17 07:20 MCV 85.3 fl (81-100) 09/17/17 07:20 MCH 29.5 pg (27.0-31.0) 09/17/17 07:20 MCHC Differential 34.6 pg (28.0-36.0) 09/17/17 07:20 RDW 12.1 % (11.5-20.0) 09/17/17 07:20 Plt Count 257 Th/cmm (150-400) 09/17/17 07:20 MPV 7.4 fl 09/17/17 07:20 Neutrophils % 47.3 % (40.0-80.0) 09/17/17 07:20 Lymphocytes % 38.6 % (20.0-50.0) 09/17/17 07:20 Monocytes % 10.2 % (2.0-10.0) H 09/17/17 07:20 Eosinophils % 2.5 % (0.0-5.0) 09/17/17 07:20 Basophils % 1.4 % (0.0-2.0) 09/17/17 07:20 Sodium 132 mEq/L (136-145) L 09/17/17 07:20 Potassium 4.1 mEq/L (3.5-5.1) 09/17/17 07:20 Chloride 98 mEq/L (98-107) 09/17/17 07:20 Carbon Dioxide 27.6 mEq/L (21.0-31.0) 09/17/17 07:20 Anion Gap 10.5 (7.0-16.0) 09/17/17 07:20 BUN 12 mg/dL (7-25) 09/17/17 07:20 Creatinine 0.5 mg/dL (0.6-1.2) L 09/17/17 07:20 Est GFR ( Amer) TNP 09/17/17 07:20 Est GFR (Non-Af Amer) TNP 09/17/17 07:20 BUN/Creatinine Ratio 24.0 09/17/17 07:20 Glucose 98 mg/dL (70-105) 09/17/17 07:20 Hemoglobin A1c % 5.8 % (4.0-6.0) 09/14/17 19:15 Calcium 9.5 mg/dL (8.6-10.3) 09/17/17 07:20 Total Bilirubin 0.4 mg/dL (0.3-1.0) 09/14/17 19:15 AST 16 U/L (13-39) 09/14/17 19:15 ALT 11 U/L (7-52) 09/14/17 19:15 Alkaline Phosphatase 94 U/L (34-104) 09/14/17 19:15 Total Protein 8.1 gm/dL (6.0-8.3) 09/14/17 19:15 Albumin 4.4 gm/dL (3.7-5.3) 09/14/17 19:15 Globulin 3.7 gm/dL 09/14/17 19:15 Albumin/Globulin Ratio 1.2 (1.0-1.8) 09/14/17 19:15 Triglycerides 267 mg/dL (<150) H 09/14/17 19:15 Cholesterol 232 mg/dL (<200) H 09/14/17 19:15 LDL Cholesterol Direct 154 mg/dL (75-193) 09/14/17 19:15 HDL Cholesterol 52 mg/dL (23-92) 09/14/17 19:15 TSH 0.80 uIU/ml (0.34-5.60) 09/14/17 19:15 Urine Source CLEAN C 09/14/17 19:20 Urine Color YELLOW 09/14/17 19:20 Urine Clarity CLEAR (CLEAR) 09/14/17 19:20 Urine pH 5.5 (4.6 - 8.0) 09/14/17 19:20 Ur Specific [place] <= 1.005 (1.005-1.030) 09/14/17 19:20 Urine Protein NEGATIVE mg/dL (NEGATIVE) 09/14/17 19:20 Urine Glucose (UA) NEGATIVE mg/dL (NEGATIVE) 09/14/17 19:20 Urine Ketones NEGATIVE mg/dL (NEGATIVE) 09/14/17 19:20 Urine Blood NEGATIVE (NEGATIVE) 09/14/17 19:20 Urine Nitrate NEGATIVE (NEGATIVE) 09/14/17 19:20 Urine Bilirubin NEGATIVE (NEGATIVE) 09/14/17 19:20 Urine Urobilinogen 0.2 E.U./dL (0.2 - 1.0) 09/14/17 19:20 Ur Leukocyte Esterase TRACE (NEGATIVE) H 09/14/17 19:20 Urine RBC 0-2 /hpf (0-5) 09/14/17 19:20 Urine WBC 0-2 /hpf (0-5) 09/14/17 19:20 Ur Epithelial Cells OCCASIONAL /lpf (FEW) 09/14/17 19:20 Urine Bacteria NONE SEEN /hpf (NONE SEEN) 09/14/17 19:20 RPR NONREACTIVE (NONREACTIVE) 09/14/17 19:15 - Physical Exam Vitals and I&O: Vital Signs Temp 98.3 F 10/06/17 21:44 Pulse 86 10/07/17 09:08 Resp 19 10/06/17 21:44 BP 133/79 10/07/17 09:08 Pulse Ox 94 10/06/17 21:44 Intake & Output 10/06/17 10/07/17 10/07/17 18:59 06:59 18:59 Intake Total 1550 Balance 1550 Intake: Oral 1550 Other: # Voids 4 Stool Characteristics Liquid Active Medications: Current Medications Acetaminophen (Tylenol) 650 mg PO Q4HR PRN PRN Reason: Pain or Fever >101 Stop: 11/13/17 22:40 Last Admin: 10/01/17 17:33 Dose: 650 mg Atorvastatin Calcium (Lipitor) 20 mg PO DAILY [facility]; Protocol Stop: 11/14/17 12:44 Last Admin: 10/07/17 09:05 Dose: 20 mg Docusate Sodium (Colace) 100 mg PO BID [facility] Stop: 11/14/17 08:59 Last Admin: 10/07/17 09:04 Dose: Not Given Levothyroxine Sodium 0.1 mg/ (Levothyroxine Sodium 0.025 mg) 0.125 mg PO QDAC [facility] Stop: 11/17/17 07:29 Last Admin: 10/07/17 06:58 Dose: 0.125 mg Lisinopril (Zestril) 20 mg PO DAILY [facility] Stop: 11/14/17 08:59 Last Admin: 10/07/17 09:08 Dose: 20 mg Lorazepam (Ativan) 0.5 mg PO Q4HR PRN; Protocol PRN Reason: Anxiety Stop: 10/14/17 22:44 Last Admin: 10/07/17 09:07 Dose: 0.5 mg Magnesium Hydroxide (Milk Of Magnesia) 30 ml PO HS PRN PRN Reason: Constipation Stop: 11/13/17 22:40 Metoprolol Tartrate (Lopressor) 25 mg PO DAILY [facility] Stop: 11/14/17 08:59 Last Admin: 10/07/17 09:07 Dose: 25 mg Olanzapine 20 mg/ Olanzapine 5 (mg) 25 mg PO DAILY [facility] Stop: 11/25/17 08:59 Last Admin: 10/07/17 09:06 Dose: 25 mg Sodium Chloride (Nacl Tab) 1 gm PO TID [facility] Stop: 11/14/17 08:59 Last Admin: 10/07/17 09:07 Dose: 1 gm Valproate Sodium (Depakene) 250 mg PO BID [facility]; Protocol Stop: 12/05/17 16:59 Last Admin: 10/07/17 09:03 Dose: Not Given Zolpidem Tartrate (Ambien) 5 mg PO HS PRN PRN Reason: Insomnia Stop: 11/13/17 22:44 Last Admin: 10/05/17 20:14 Dose: 5 mg General: alert HEENT: NC/AT, PERRLA Neck: Supple Lungs: CTAB Cardiovascular: RRR, Normal S1, Normal S2, without murmur Abdomen: soft, non-tender, non-distended, positive bowel sound Extremities: excoriation Neurological: alert - Procedures Procedures: Procedures Procedure Code Date APPENDECTOMY ADD-ON 99990 08/04/15 BYPASS TRANSVERSE COLON TO CUTANEOUS, OPEN APPROACH [id number] 08/04/15 COLOSTOMY 66670 08/04/15 EXCISION OF LARGE INTESTINE, OPEN APPROACH [id number] 08/04/15 GROUP PSYCHOTHERAPY 22565 07/31/15 GROUP PSYCHOTHERAPY GZHZZZZ 07/31/15 GROUP PSYCHOTHERAPY 00480 04/02/15 GROUP PSYCHOTHERAPY GZHZZZZ 04/02/15 OTHER GROUP THERAPY 94.44 11/07/14 PARTIAL REMOVAL OF COLON 94362 08/04/15 RECREATIONAL THERAPY 93.81 02/21/10 RESECTION OF APPENDIX, OPEN APPROACH [id number] 08/04/15 Internal Medicine Assmt/Plan - Assessment Assessment: - Assessment Assessment: MRSA NARES htn hypothyroidism diverting colostomy dmenetia obesity anemia hyponatremia hyperglycemia - Plan Plan: cont with bactroban fall precautions continue current plan of care - Plan Plan: cpm fall precaution Nutritional Asmnt/Malnutr-PDOC - Dietary Evaluation Malnutrition Findings (Please click <Entered> for more info): Nutritional Asmnt/Malnutrition Start: 09/18/17 14: 05 Text: Status: Complete Freq: Protocol: Document 09/18/17 14:06 EDWIN (Rec: 09/18/17 14:22 EDWIN [email or web address]) Nutritional Asmnt/Malnutrition Patient General Information Nutritional Screening Moderate Risk Diagnosis psychosis Pertinent Medical Hx/Surgical Hx HTN, thyroid disorder, cardiomegaly, hypothyroidism, rectal prolapse, femal geital prolapse, hyponatremia, schizophrenia, ptosis, schizophrenia Subjective Information Per EMR, PO intake 100% of meals. Per nurse note, pt was confused and rambling, difficult to understand her. Current Diet Order/ Nutrition Support [facility] soft ground Pertinent Medications levothyroixine, nacl Pertinent Labs 09/17 Na 132, Cr 0.5, glucose 98 09/14 Na 124, Cl 91, Cr 0.5, glucose 106, A1c 5.8 Nutritional Hx/Data Height 1.91 m Height (Calculated Centimeters) 190.5 Current Weight (lbs) 67.585 kg Weight (Calculated Kilograms) 67.6 Weight (Calculated Grams) 51442.3 [place] Body Weight 196 Body Mass Index (BMI) 18.6 Weight Status Approriate GI Symptoms GI Symptoms None Last BM 09/16 Difficult in: None Skin Integrity/Comment: dryness, Fabrizio 19 Current %PO Good (75-100%) Estimated Nutritional Goals BEE in Kcals: Using Current wt Calories/Kcals/Kg 27-32 Kcals Calculated 2239-1081 Protein: Using Current wt Protein g/k-1.2 Protein Calculated 68-82 Fluid: ml 1836-2176ml (1ml/kcal) Nutritional Problem No current Nutrition Prob Problem N/A Malnutrition Alert Is there a minimum of two criteria No selected? Query Text:Check all the applicable criteria. A minimum of two criteria are recommended for diagnosis of either severe or non-severe malnutrition. Malnutrition Related to Morbid Obesity Malnutrition related to morbid obesity No Intervention/Recommendation Comments 1. Continue with [facility] soft ground diet as ordered. 2. Monitor PO intake, wt, labs and skin integrity 3. F/U as low risk in 7 days, 09/25 Expected Outcomes/Goals Expected Outcomes/Goals 1. PO intake to meet at least 75% of nutritional needs. 2. Wt stability, skin to remain intact, labs to approach WNL.
[2017-10-08] MEDS: Atorvastatin Calcium 10 MG TAB PO SCH (09:16)
--- NOTE | 2017-10-08 14:29 | Internal Medicine Prog Note ---
Internal Medicine Subjective - Subjective Patient seen and examined:: with staff, chart reviewed Patient is:: awake, verbal, interactive Patient Complaints of:: congestion Per staff patient has:: no adverse event, no episodes of fall, poor appetite, tolerating meds Internal Medicine Objective - Results Result Diagrams: 09/17/17 07:20 09/17/17 07:20 Recent Labs: Laboratory Last Values WBC 4.3 Th/cmm (4.8-10.8) L 09/17/17 07:20 RBC 4.11 Mil/cmm (3.80-5.20) 09/17/17 07:20 Hgb 12.1 gm/dL (12-16) 09/17/17 07:20 Hct 35.1 % (41.0-60) L 09/17/17 07:20 MCV 85.3 fl (81-100) 09/17/17 07:20 MCH 29.5 pg (27.0-31.0) 09/17/17 07:20 MCHC Differential 34.6 pg (28.0-36.0) 09/17/17 07:20 RDW 12.1 % (11.5-20.0) 09/17/17 07:20 Plt Count 257 Th/cmm (150-400) 09/17/17 07:20 MPV 7.4 fl 09/17/17 07:20 Neutrophils % 47.3 % (40.0-80.0) 09/17/17 07:20 Lymphocytes % 38.6 % (20.0-50.0) 09/17/17 07:20 Monocytes % 10.2 % (2.0-10.0) H 09/17/17 07:20 Eosinophils % 2.5 % (0.0-5.0) 09/17/17 07:20 Basophils % 1.4 % (0.0-2.0) 09/17/17 07:20 Sodium 132 mEq/L (136-145) L 09/17/17 07:20 Potassium 4.1 mEq/L (3.5-5.1) 09/17/17 07:20 Chloride 98 mEq/L (98-107) 09/17/17 07:20 Carbon Dioxide 27.6 mEq/L (21.0-31.0) 09/17/17 07:20 Anion Gap 10.5 (7.0-16.0) 09/17/17 07:20 BUN 12 mg/dL (7-25) 09/17/17 07:20 Creatinine 0.5 mg/dL (0.6-1.2) L 09/17/17 07:20 Est GFR ( Amer) TNP 09/17/17 07:20 Est GFR (Non-Af Amer) TNP 09/17/17 07:20 BUN/Creatinine Ratio 24.0 09/17/17 07:20 Glucose 98 mg/dL (70-105) 09/17/17 07:20 Hemoglobin A1c % 5.8 % (4.0-6.0) 09/14/17 19:15 Calcium 9.5 mg/dL (8.6-10.3) 09/17/17 07:20 Total Bilirubin 0.4 mg/dL (0.3-1.0) 09/14/17 19:15 AST 16 U/L (13-39) 09/14/17 19:15 ALT 11 U/L (7-52) 09/14/17 19:15 Alkaline Phosphatase 94 U/L (34-104) 09/14/17 19:15 Total Protein 8.1 gm/dL (6.0-8.3) 09/14/17 19:15 Albumin 4.4 gm/dL (3.7-5.3) 09/14/17 19:15 Globulin 3.7 gm/dL 09/14/17 19:15 Albumin/Globulin Ratio 1.2 (1.0-1.8) 09/14/17 19:15 Triglycerides 267 mg/dL (<150) H 09/14/17 19:15 Cholesterol 232 mg/dL (<200) H 09/14/17 19:15 LDL Cholesterol Direct 154 mg/dL (75-193) 09/14/17 19:15 HDL Cholesterol 52 mg/dL (23-92) 09/14/17 19:15 TSH 0.80 uIU/ml (0.34-5.60) 09/14/17 19:15 Urine Source CLEAN C 09/14/17 19:20 Urine Color YELLOW 09/14/17 19:20 Urine Clarity CLEAR (CLEAR) 09/14/17 19:20 Urine pH 5.5 (4.6 - 8.0) 09/14/17 19:20 Ur Specific [place] <= 1.005 (1.005-1.030) 09/14/17 19:20 Urine Protein NEGATIVE mg/dL (NEGATIVE) 09/14/17 19:20 Urine Glucose (UA) NEGATIVE mg/dL (NEGATIVE) 09/14/17 19:20 Urine Ketones NEGATIVE mg/dL (NEGATIVE) 09/14/17 19:20 Urine Blood NEGATIVE (NEGATIVE) 09/14/17 19:20 Urine Nitrate NEGATIVE (NEGATIVE) 09/14/17 19:20 Urine Bilirubin NEGATIVE (NEGATIVE) 09/14/17 19:20 Urine Urobilinogen 0.2 E.U./dL (0.2 - 1.0) 09/14/17 19:20 Ur Leukocyte Esterase TRACE (NEGATIVE) H 09/14/17 19:20 Urine RBC 0-2 /hpf (0-5) 09/14/17 19:20 Urine WBC 0-2 /hpf (0-5) 09/14/17 19:20 Ur Epithelial Cells OCCASIONAL /lpf (FEW) 09/14/17 19:20 Urine Bacteria NONE SEEN /hpf (NONE SEEN) 09/14/17 19:20 Valproic Acid < 10.0 ug/mL (50.0-100.0) L 10/08/17 07:30 RPR NONREACTIVE (NONREACTIVE) 09/14/17 19:15 - Physical Exam Vitals and I&O: Vital Signs Temp 97.9 F 10/07/17 14:43 Pulse 86 10/08/17 09:15 Resp 20 10/07/17 14:43 BP 146/84 10/08/17 09:15 Pulse Ox 96 10/07/17 14:43 Intake & Output 10/07/17 10/08/17 10/08/17 18:59 06:59 18:59 Intake Total 1200 Balance 1200 Intake: Oral 1200 Other: # Voids 5 # Bowel Movements 0 Stool Characteristics [place] Active Medications: Current Medications Acetaminophen (Tylenol) 650 mg PO Q4HR PRN PRN Reason: Pain or Fever >101 Stop: 11/13/17 22:40 Last Admin: 10/01/17 17:33 Dose: 650 mg Atorvastatin Calcium (Lipitor) 20 mg PO DAILY [facility]; Protocol Stop: 11/14/17 12:44 Last Admin: 10/08/17 09:16 Dose: 20 mg Docusate Sodium (Colace) 100 mg PO BID [facility] Stop: 11/14/17 08:59 Last Admin: 10/08/17 09:15 Dose: 100 mg Levothyroxine Sodium 0.1 mg/ (Levothyroxine Sodium 0.025 mg) 0.125 mg PO QDAC [facility] Stop: 11/17/17 07:29 Last Admin: 10/08/17 06:32 Dose: 0.125 mg Lisinopril (Zestril) 20 mg PO DAILY [facility] Stop: 11/14/17 08:59 Last Admin: 10/08/17 09:15 Dose: 20 mg Lorazepam (Ativan) 0.5 mg PO Q4HR PRN; Protocol PRN Reason: Anxiety Stop: 10/14/17 22:44 Last Admin: 10/08/17 09:20 Dose: 0.5 mg Magnesium Hydroxide (Milk Of Magnesia) 30 ml PO HS PRN PRN Reason: Constipation Stop: 11/13/17 22:40 Metoprolol Tartrate (Lopressor) 25 mg PO DAILY [facility] Stop: 11/14/17 08:59 Last Admin: 10/08/17 09:15 Dose: 25 mg Olanzapine (Zyprexa) 5 mg PO BID [facility] Stop: 12/07/17 08:59 Last Admin: 10/08/17 09:15 Dose: 5 mg Quetiapine Fumarate (Seroquel) 12.5 mg PO TID [facility]; Protocol Stop: 12/07/17 08:59 Last Admin: 10/08/17 14:09 Dose: 12.5 mg Sodium Chloride (Nacl Tab) 1 gm PO TID [facility] Stop: 11/14/17 08:59 Last Admin: 10/08/17 14:09 Dose: 1 gm Valproate Sodium (Depakene) 250 mg PO BID [facility]; Protocol Stop: 12/05/17 16:59 Last Admin: 10/08/17 09:16 Dose: 250 mg Zolpidem Tartrate (Ambien) 5 mg PO HS PRN PRN Reason: Insomnia Stop: 11/13/17 22:44 Last Admin: 10/05/17 20:14 Dose: 5 mg General: alert HEENT: NC/AT, PERRLA Neck: Supple Lungs: CTAB Cardiovascular: RRR, Normal S1, Normal S2, without murmur Abdomen: soft, non-tender, non-distended, positive bowel sound Extremities: excoriation Neurological: alert - Procedures Procedures: Procedures Procedure Code Date APPENDECTOMY ADD-ON 28543 08/04/15 BYPASS TRANSVERSE COLON TO CUTANEOUS, OPEN APPROACH [id number] 08/04/15 COLOSTOMY 44174 08/04/15 EXCISION OF LARGE INTESTINE, OPEN APPROACH [id number] 08/04/15 GROUP PSYCHOTHERAPY 06924 07/31/15 GROUP PSYCHOTHERAPY GZHZZZZ 07/31/15 GROUP PSYCHOTHERAPY 17798 04/02/15 GROUP PSYCHOTHERAPY GZHZZZZ 04/02/15 OTHER GROUP THERAPY 94.44 11/07/14 PARTIAL REMOVAL OF COLON 54722 08/04/15 RECREATIONAL THERAPY 93.81 02/21/10 RESECTION OF APPENDIX, OPEN APPROACH [id number] 08/04/15 Internal Medicine Assmt/Plan - Assessment Assessment: - Assessment Assessment: MRSA NARES htn hypothyroidism diverting colostomy dmenetia obesity anemia hyponatremia hyperglycemia - Plan Plan: cont with bactroban fall precautions continue current plan of care - Plan Plan: cpm fall precaution Nutritional Asmnt/Malnutr-PDOC - Dietary Evaluation Malnutrition Findings (Please click <Entered> for more info): Nutritional Asmnt/Malnutrition Start: 09/18/17 14: 05 Text: Status: Complete Freq: Protocol: Document 09/18/17 14:06 TATIANAG (Rec: 09/18/17 14:22 LCJANESSAG [email or web address]) Nutritional Asmnt/Malnutrition Patient General Information Nutritional Screening Moderate Risk Diagnosis psychosis Pertinent Medical Hx/Surgical Hx HTN, thyroid disorder, cardiomegaly, hypothyroidism, rectal prolapse, femal geital prolapse, hyponatremia, schizophrenia, ptosis, schizophrenia Subjective Information Per EMR, PO intake 100% of meals. Per nurse note, pt was confused and rambling, difficult to understand her. Current Diet Order/ Nutrition Support [facility] soft ground Pertinent Medications levothyroixine, nacl Pertinent Labs 09/17 Na 132, Cr 0.5, glucose 98 09/14 Na 124, Cl 91, Cr 0.5, glucose 106, A1c 5.8 Nutritional Hx/Data Height 1.91 m Height (Calculated Centimeters) 190.5 Current Weight (lbs) 67.585 kg Weight (Calculated Kilograms) 67.6 Weight (Calculated Grams) 73664.3 [place] Body Weight 196 Body Mass Index (BMI) 18.6 Weight Status Approriate GI Symptoms GI Symptoms None Last BM 09/16 Difficult in: None Skin Integrity/Comment: Nahid wallisen 19 Current %PO Good (75-100%) Estimated Nutritional Goals BEE in Kcals: Using Current wt Calories/Kcals/Kg 27-32 Kcals Calculated 1306-4054 Protein: Using Current wt Protein g/k-1.2 Protein Calculated 68-82 Fluid: ml 1836-2176ml (1ml/kcal) Nutritional Problem No current Nutrition Prob Problem N/A Malnutrition Alert Is there a minimum of two criteria No selected? Query Text:Check all the applicable criteria. A minimum of two criteria are recommended for diagnosis of either severe or non-severe malnutrition. Malnutrition Related to Morbid Obesity Malnutrition related to morbid obesity No Intervention/Recommendation Comments 1. Continue with [facility] soft ground diet as ordered. 2. Monitor PO intake, wt, labs and skin integrity 3. F/U as low risk in 7 days, 09/25 Expected Outcomes/Goals Expected Outcomes/Goals 1. PO intake to meet at least 75% of nutritional needs. 2. Wt stability, skin to remain intact, labs to approach WNL.
--- NOTE | 2017-10-08 18:43 | Progress Notes ---
DATE: 10/08/2017 SUBJECTIVE: Chart reviewed and the patient interviewed. Also discussed the patient's condition with the staff and reviewed records and labs. The patient is still isolative and is still easily agitated. The patient also is still preoccupied with her colostomy bag and playing with that. She also is impulsive and she still has difficulty following any of directions. Although the patient has been in the hospital for a while, yet she is having difficulty with her mood. ASSESSMENT: The patient is still agitated and irritable mood. TREATMENT PLAN: We will get Depakote blood level. Also, we will start Seroquel in a dose of 12.5 mg 3 times a day since the Zyprexa has not been helping. At the same time, we will decrease Zyprexa to 5 mg twice a day. Also, continue to work on her impulsivity and her irritable mood and continue to follow up. JOB# [id number]
--- NOTE | 2017-10-09 07:30 | Progress Notes ---
DATE: 10/07/[address] Kaufman. SUBJECTIVE: The patient was interviewed. Case was discussed with staff and chart reviewed. Per the staff, the patient has been taking her medication intermittently, but has been mostly refusing them. The patient needs prompting and needs family support in order for her to possibly take her medications. The patient was interviewed this morning in her room at bedside. The patient is speaking incoherently. She is loud. She is hyperverbal with pressured speech. She is not making any sense. She is completely disorganized. In addition, she continues to disrobe and is uncooperative with the interview, unable to really engage the patient much more with the interview. MENTAL STATUS EXAMINATION: The patient is sitting in the chair. She is disrobing. She is disorganized. She is not making any sense. Her speech is loud and pressured. Her thought process disorganized, unable to assess suicidal or homicidal ideations or hallucinations or paranoia due to her poor cooperation, but she does seem to be alert and oriented to her name only at this time, remaining orientations were not able to be completed due to poor cooperation, but insight judgment and impulse control remain poor. ASSESSMENT: This is a 77-year-old female admitted to [facility] unit. The patient at this time continues to remain psychotic. She continues to remain delusional, disorganized. She requires continuous with behavioral disorganization and she requires constant redirection. In addition, she was disrobing on the unit. PLAN: I will continue the patient on acute hospitalization. We will continue medications prescribed. We will encourage the patient to verbalize her needs. The patient will participate in group and milieu therapy, encourage the patient to work with the social work and telehealth case manager for discharge planning and need for any community resources. JOB# [id number] HENRIQUE
[2017-10-09] MEDS: Atorvastatin Calcium 10 MG TAB PO SCH (09:28)
--- NOTE | 2017-10-09 14:04 | Internal Medicine Prog Note ---
Internal Medicine Subjective - Subjective Service Date: 10/09/17 Patient is:: awake, verbal, interactive Patient Complaints of:: congestion Per staff patient has:: no adverse event, no episodes of fall, poor appetite, tolerating meds Internal Medicine Objective - Results Result Diagrams: 09/17/17 07:20 09/17/17 07:20 Recent Labs: Laboratory Last Values WBC 4.3 Th/cmm (4.8-10.8) L 09/17/17 07:20 RBC 4.11 Mil/cmm (3.80-5.20) 09/17/17 07:20 Hgb 12.1 gm/dL (12-16) 09/17/17 07:20 Hct 35.1 % (41.0-60) L 09/17/17 07:20 MCV 85.3 fl (81-100) 09/17/17 07:20 MCH 29.5 pg (27.0-31.0) 09/17/17 07:20 MCHC Differential 34.6 pg (28.0-36.0) 09/17/17 07:20 RDW 12.1 % (11.5-20.0) 09/17/17 07:20 Plt Count 257 Th/cmm (150-400) 09/17/17 07:20 MPV 7.4 fl 09/17/17 07:20 Neutrophils % 47.3 % (40.0-80.0) 09/17/17 07:20 Lymphocytes % 38.6 % (20.0-50.0) 09/17/17 07:20 Monocytes % 10.2 % (2.0-10.0) H 09/17/17 07:20 Eosinophils % 2.5 % (0.0-5.0) 09/17/17 07:20 Basophils % 1.4 % (0.0-2.0) 09/17/17 07:20 Sodium 132 mEq/L (136-145) L 09/17/17 07:20 Potassium 4.1 mEq/L (3.5-5.1) 09/17/17 07:20 Chloride 98 mEq/L (98-107) 09/17/17 07:20 Carbon Dioxide 27.6 mEq/L (21.0-31.0) 09/17/17 07:20 Anion Gap 10.5 (7.0-16.0) 09/17/17 07:20 BUN 12 mg/dL (7-25) 09/17/17 07:20 Creatinine 0.5 mg/dL (0.6-1.2) L 09/17/17 07:20 Est GFR ( Amer) TNP 09/17/17 07:20 Est GFR (Non-Af Amer) TNP 09/17/17 07:20 BUN/Creatinine Ratio 24.0 09/17/17 07:20 Glucose 98 mg/dL (70-105) 09/17/17 07:20 Hemoglobin A1c % 5.8 % (4.0-6.0) 09/14/17 19:15 Calcium 9.5 mg/dL (8.6-10.3) 09/17/17 07:20 Total Bilirubin 0.4 mg/dL (0.3-1.0) 09/14/17 19:15 AST 16 U/L (13-39) 09/14/17 19:15 ALT 11 U/L (7-52) 09/14/17 19:15 Alkaline Phosphatase 94 U/L (34-104) 09/14/17 19:15 Total Protein 8.1 gm/dL (6.0-8.3) 09/14/17 19:15 Albumin 4.4 gm/dL (3.7-5.3) 09/14/17 19:15 Globulin 3.7 gm/dL 09/14/17 19:15 Albumin/Globulin Ratio 1.2 (1.0-1.8) 09/14/17 19:15 Triglycerides 267 mg/dL (<150) H 09/14/17 19:15 Cholesterol 232 mg/dL (<200) H 09/14/17 19:15 LDL Cholesterol Direct 154 mg/dL (75-193) 09/14/17 19:15 HDL Cholesterol 52 mg/dL (23-92) 09/14/17 19:15 TSH 0.80 uIU/ml (0.34-5.60) 09/14/17 19:15 Urine Source CLEAN C 09/14/17 19:20 Urine Color YELLOW 09/14/17 19:20 Urine Clarity CLEAR (CLEAR) 09/14/17 19:20 Urine pH 5.5 (4.6 - 8.0) 09/14/17 19:20 Ur Specific [place] <= 1.005 (1.005-1.030) 09/14/17 19:20 Urine Protein NEGATIVE mg/dL (NEGATIVE) 09/14/17 19:20 Urine Glucose (UA) NEGATIVE mg/dL (NEGATIVE) 09/14/17 19:20 Urine Ketones NEGATIVE mg/dL (NEGATIVE) 09/14/17 19:20 Urine Blood NEGATIVE (NEGATIVE) 09/14/17 19:20 Urine Nitrate NEGATIVE (NEGATIVE) 09/14/17 19:20 Urine Bilirubin NEGATIVE (NEGATIVE) 09/14/17 19:20 Urine Urobilinogen 0.2 E.U./dL (0.2 - 1.0) 09/14/17 19:20 Ur Leukocyte Esterase TRACE (NEGATIVE) H 09/14/17 19:20 Urine RBC 0-2 /hpf (0-5) 09/14/17 19:20 Urine WBC 0-2 /hpf (0-5) 09/14/17 19:20 Ur Epithelial Cells OCCASIONAL /lpf (FEW) 09/14/17 19:20 Urine Bacteria NONE SEEN /hpf (NONE SEEN) 09/14/17 19:20 Valproic Acid < 10.0 ug/mL (50.0-100.0) L 10/08/17 07:30 RPR NONREACTIVE (NONREACTIVE) 09/14/17 19:15 - Physical Exam Vitals and I&O: Vital Signs Temp 98.2 F 10/09/17 06:31 Pulse 79 10/09/17 09:29 Resp 19 10/09/17 12:03 BP 141/88 10/09/17 09:29 Pulse Ox 94 10/09/17 06:31 Intake & Output 10/08/17 10/09/17 10/09/17 18:59 06:59 18:59 Intake Total 1900 240 Balance 1900 240 Weight (lbs) 149 lb Intake: Oral 1900 240 Other: # Voids 4 3 # Bowel Movements 4 Stool Characteristics Foamy Soft Foamy Weight Source Bedscale Active Medications: Current Medications Acetaminophen (Tylenol) 650 mg PO Q4HR PRN PRN Reason: Pain or Fever >101 Stop: 11/13/17 22:40 Last Admin: 10/01/17 17:33 Dose: 650 mg Atorvastatin Calcium (Lipitor) 20 mg PO DAILY NICOLE; Protocol Stop: 11/14/17 12:44 Last Admin: 10/09/17 09:28 Dose: 20 mg Docusate Sodium (Colace) 100 mg PO BID NICOLE Stop: 11/14/17 08:59 Last Admin: 10/09/17 09:30 Dose: Not Given Levothyroxine Sodium 0.1 mg/ (Levothyroxine Sodium 0.025 mg) 0.125 mg PO QDAC NICOLE Stop: 11/17/17 07:29 Last Admin: 10/09/17 06:56 Dose: 0.125 mg Lisinopril (Zestril) 20 mg PO DAILY NICOLE Stop: 11/14/17 08:59 Last Admin: 10/09/17 09:29 Dose: 20 mg Lorazepam (Ativan) 0.5 mg PO Q4HR PRN; Protocol PRN Reason: Anxiety Stop: 10/14/17 22:44 Last Admin: 10/08/17 21:28 Dose: 0.5 mg Magnesium Hydroxide (Milk Of Magnesia) 30 ml PO HS PRN PRN Reason: Constipation Stop: 11/13/17 22:40 Metoprolol Tartrate (Lopressor) 25 mg PO DAILY NICOLE Stop: 11/14/17 08:59 Last Admin: 10/09/17 09:29 Dose: 25 mg Olanzapine (Zyprexa) 5 mg PO BID [facility] Stop: 12/07/17 08:59 Last Admin: 10/09/17 09:29 Dose: 5 mg Quetiapine Fumarate (Seroquel) 12.5 mg PO TID [facility]; Protocol Stop: 12/07/17 08:59 Last Admin: 10/09/17 09:29 Dose: 12.5 mg Sodium Chloride (Nacl Tab) 1 gm PO TID NICOLE Stop: 11/14/17 08:59 Last Admin: 10/09/17 09:28 Dose: 1 gm Valproate Sodium (Depakene) 250 mg PO BID [facility]; Protocol Stop: 12/05/17 16:59 Last Admin: 10/09/17 09:28 Dose: 250 mg Zolpidem Tartrate (Ambien) 5 mg PO HS PRN PRN Reason: Insomnia Stop: 11/13/17 22:44 Last Admin: 10/09/17 00:12 Dose: 5 mg General: alert HEENT: NC/AT, PERRLA Neck: Supple Lungs: CTAB Cardiovascular: RRR, Normal S1, Normal S2, without murmur Abdomen: soft, non-tender, non-distended, positive bowel sound Extremities: excoriation Neurological: alert - Procedures Procedures: Procedures Procedure Code Date APPENDECTOMY ADD-ON 20864 08/04/15 BYPASS TRANSVERSE COLON TO CUTANEOUS, OPEN APPROACH [id number] 08/04/15 COLOSTOMY 27350 08/04/15 EXCISION OF LARGE INTESTINE, OPEN APPROACH [id number] 08/04/15 GROUP PSYCHOTHERAPY 75437 07/31/15 GROUP PSYCHOTHERAPY GZHZZZZ 07/31/15 GROUP PSYCHOTHERAPY 03997 04/02/15 GROUP PSYCHOTHERAPY GZHZZZZ 04/02/15 OTHER GROUP THERAPY 94.44 11/07/14 PARTIAL REMOVAL OF COLON 10040 08/04/15 RECREATIONAL THERAPY 93.81 02/21/10 RESECTION OF APPENDIX, OPEN APPROACH [id number] 08/04/15 Internal Medicine Assmt/Plan - Assessment Assessment: MRSA NARES htn hypothyroidism diverting colostomy dmenetia obesity anemia hyponatremia hyperglycemia - Plan Plan: fall precautions continue current plan of care Nutritional Asmnt/Malnutr-PDOC - Dietary Evaluation Malnutrition Findings (Please click <Entered> for more info): Nutritional Asmnt/Malnutrition Start: 09/18/17 14: 05 Text: Status: Complete Freq: Protocol: Document 09/18/17 14:06 TATIANAG (Rec: 09/18/17 14:22 [email or web address]) Nutritional Asmnt/Malnutrition Patient General Information Nutritional Screening Moderate Risk Diagnosis psychosis Pertinent Medical Hx/Surgical Hx HTN, thyroid disorder, cardiomegaly, hypothyroidism, rectal prolapse, femal geital prolapse, hyponatremia, schizophrenia, ptosis, schizophrenia Subjective Information Per EMR, PO intake 100% of meals. Per nurse note, pt was confused and rambling, difficult to understand her. Current Diet Order/ Nutrition Support [facility] Pertinent Medications levothyroixine, nacl Pertinent Labs 09/17 Na 132, Cr 0.5, glucose 98 09/14 Na 124, Cl 91, Cr 0.5, glucose 106, A1c 5.8 Nutritional Hx/Data Height 6 ft 3 in Height (Calculated Centimeters) 190.5 Current Weight (lbs) 149 lb Weight (Calculated Kilograms) 67.6 Weight (Calculated Grams) 76471.3 [place] Body Weight 196 Body Mass Index (BMI) 18.6 Weight Status Approriate GI Symptoms GI Symptoms None Last BM 09/16 Difficult in: None Skin Integrity/Comment: bimal, Fabrizio 19 Current %PO Good (75-100%) Estimated Nutritional Goals BEE in Kcals: Using Current wt Calories/Kcals/Kg 27-32 Kcals Calculated 6081-1883 Protein: Using Current wt Protein g/k-1.2 Protein Calculated 68-82 Fluid: ml 1836-2176ml (1ml/kcal) Nutritional Problem No current Nutrition Prob Problem N/A Malnutrition Alert Is there a minimum of two criteria No selected? Query Text:Check all the applicable criteria. A minimum of two criteria are recommended for diagnosis of either severe or non-severe malnutrition. Malnutrition Related to Morbid Obesity Malnutrition related to morbid obesity No Intervention/Recommendation Comments 1. Continue with [facility] diet as ordered. 2. Monitor PO intake, wt, labs and skin integrity 3. F/U as low risk in 7 days, 09/25 Expected Outcomes/Goals Expected Outcomes/Goals 1. PO intake to meet at least 75% of nutritional needs. 2. Wt stability, skin to remain intact, labs to approach WNL.
--- NOTE | 2017-10-09 22:46 | Progress Notes ---
DATE: 10/09/2017 Case was discussed with staff of the patient, reviewed records. The patient continues to be unpredictable and impulsive, needing redirection. Continues to have poor insight, rambling speech. Continues to be easily agitated. She does have a high cholesterol and triglyceride level. Her Depakote level is nondetectable. So I did discuss staff, the need for them to monitor her medication and make sure she is compliant because she is on a good dose of Depakote, but yet is not detected. No side effects of the medication, no sedation, no nausea, no extrapyramidal symptoms. We will continue to work with the patient group therapy, milieu therapy and adjust medications. JOB# [id number]
[2017-10-10] MEDS: Atorvastatin Calcium 10 MG TAB PO SCH (09:49)
--- NOTE | 2017-10-10 18:58 | Internal Medicine Prog Note ---
Internal Medicine Subjective - Subjective Service Date: 10/10/17 Patient is:: awake, verbal, interactive Patient Complaints of:: congestion Per staff patient has:: no adverse event, no episodes of fall, poor appetite, tolerating meds Internal Medicine Objective - Results Result Diagrams: 09/17/17 07:20 09/17/17 07:20 Recent Labs: Laboratory Last Values WBC 4.3 Th/cmm (4.8-10.8) L 09/17/17 07:20 RBC 4.11 Mil/cmm (3.80-5.20) 09/17/17 07:20 Hgb 12.1 gm/dL (12-16) 09/17/17 07:20 Hct 35.1 % (41.0-60) L 09/17/17 07:20 MCV 85.3 fl (81-100) 09/17/17 07:20 MCH 29.5 pg (27.0-31.0) 09/17/17 07:20 MCHC Differential 34.6 pg (28.0-36.0) 09/17/17 07:20 RDW 12.1 % (11.5-20.0) 09/17/17 07:20 Plt Count 257 Th/cmm (150-400) 09/17/17 07:20 MPV 7.4 fl 09/17/17 07:20 Neutrophils % 47.3 % (40.0-80.0) 09/17/17 07:20 Lymphocytes % 38.6 % (20.0-50.0) 09/17/17 07:20 Monocytes % 10.2 % (2.0-10.0) H 09/17/17 07:20 Eosinophils % 2.5 % (0.0-5.0) 09/17/17 07:20 Basophils % 1.4 % (0.0-2.0) 09/17/17 07:20 Sodium 132 mEq/L (136-145) L 09/17/17 07:20 Potassium 4.1 mEq/L (3.5-5.1) 09/17/17 07:20 Chloride 98 mEq/L (98-107) 09/17/17 07:20 Carbon Dioxide 27.6 mEq/L (21.0-31.0) 09/17/17 07:20 Anion Gap 10.5 (7.0-16.0) 09/17/17 07:20 BUN 12 mg/dL (7-25) 09/17/17 07:20 Creatinine 0.5 mg/dL (0.6-1.2) L 09/17/17 07:20 Est GFR ( Amer) TNP 09/17/17 07:20 Est GFR (Non-Af Amer) TNP 09/17/17 07:20 BUN/Creatinine Ratio 24.0 09/17/17 07:20 Glucose 98 mg/dL (70-105) 09/17/17 07:20 Hemoglobin A1c % 5.8 % (4.0-6.0) 09/14/17 19:15 Calcium 9.5 mg/dL (8.6-10.3) 09/17/17 07:20 Total Bilirubin 0.4 mg/dL (0.3-1.0) 09/14/17 19:15 AST 16 U/L (13-39) 09/14/17 19:15 ALT 11 U/L (7-52) 09/14/17 19:15 Alkaline Phosphatase 94 U/L (34-104) 09/14/17 19:15 Total Protein 8.1 gm/dL (6.0-8.3) 09/14/17 19:15 Albumin 4.4 gm/dL (3.7-5.3) 09/14/17 19:15 Globulin 3.7 gm/dL 09/14/17 19:15 Albumin/Globulin Ratio 1.2 (1.0-1.8) 09/14/17 19:15 Triglycerides 267 mg/dL (<150) H 09/14/17 19:15 Cholesterol 232 mg/dL (<200) H 09/14/17 19:15 LDL Cholesterol Direct 154 mg/dL (75-193) 09/14/17 19:15 HDL Cholesterol 52 mg/dL (23-92) 09/14/17 19:15 TSH 0.80 uIU/ml (0.34-5.60) 09/14/17 19:15 Urine Source CLEAN C 09/14/17 19:20 Urine Color YELLOW 09/14/17 19:20 Urine Clarity CLEAR (CLEAR) 09/14/17 19:20 Urine pH 5.5 (4.6 - 8.0) 09/14/17 19:20 Ur Specific [place] <= 1.005 (1.005-1.030) 09/14/17 19:20 Urine Protein NEGATIVE mg/dL (NEGATIVE) 09/14/17 19:20 Urine Glucose (UA) NEGATIVE mg/dL (NEGATIVE) 09/14/17 19:20 Urine Ketones NEGATIVE mg/dL (NEGATIVE) 09/14/17 19:20 Urine Blood NEGATIVE (NEGATIVE) 09/14/17 19:20 Urine Nitrate NEGATIVE (NEGATIVE) 09/14/17 19:20 Urine Bilirubin NEGATIVE (NEGATIVE) 09/14/17 19:20 Urine Urobilinogen 0.2 E.U./dL (0.2 - 1.0) 09/14/17 19:20 Ur Leukocyte Esterase TRACE (NEGATIVE) H 09/14/17 19:20 Urine RBC 0-2 /hpf (0-5) 09/14/17 19:20 Urine WBC 0-2 /hpf (0-5) 09/14/17 19:20 Ur Epithelial Cells OCCASIONAL /lpf (FEW) 09/14/17 19:20 Urine Bacteria NONE SEEN /hpf (NONE SEEN) 09/14/17 19:20 Valproic Acid < 10.0 ug/mL (50.0-100.0) L 10/08/17 07:30 RPR NONREACTIVE (NONREACTIVE) 09/14/17 19:15 - Physical Exam Vitals and I&O: Vital Signs Temp 98.7 F 10/10/17 14:00 Pulse 90 10/10/17 14:00 Resp 19 10/10/17 14:00 BP 139/100 10/10/17 14:00 Pulse Ox 95 10/10/17 14:00 Intake & Output 10/09/17 10/10/17 10/10/17 18:59 06:59 18:59 Intake Total 4842 757 2402 Output Total 400 Balance 0414 181 4210 Weight (lbs) 149 lb Intake: Oral 6403 883 8202 Output: Stool 400 Other: # Voids 5 3 6 # Bowel Movements 2 1 Stool Characteristics Foamy Foamy Soft Weight Source Bedscale Active Medications: Current Medications Acetaminophen (Tylenol) 650 mg PO Q4HR PRN PRN Reason: Pain or Fever >101 Stop: 11/13/17 22:40 Last Admin: 10/01/17 17:33 Dose: 650 mg Atorvastatin Calcium (Lipitor) 20 mg PO DAILY NICOLE; Protocol Stop: 11/14/17 12:44 Last Admin: 10/10/17 09:49 Dose: 20 mg Docusate Sodium (Colace) 100 mg PO BID [facility] Stop: 11/14/17 08:59 Last Admin: 10/10/17 16:54 Dose: Not Given Levothyroxine Sodium 0.1 mg/ (Levothyroxine Sodium 0.025 mg) 0.125 mg PO QDAC COUNT INCLUDES [facility] Stop: 11/17/17 07:29 Last Admin: 10/10/17 06:35 Dose: 0.125 mg Lisinopril (Zestril) 20 mg PO DAILY COUNT [facility]CLUDES [facility] Stop: 11/14/17 08:59 Last Admin: 10/10/17 09:49 Dose: 20 mg Lorazepam (Ativan) 0.5 mg PO Q4HR PRN; Protocol PRN Reason: Anxiety Stop: 10/14/17 22:44 Last Admin: 10/08/17 21:28 Dose: 0.5 mg Magnesium Hydroxide (Milk Of Magnesia) 30 ml PO HS PRN PRN Reason: Constipation Stop: 11/13/17 22:40 Metoprolol Tartrate (Lopressor) 25 mg PO DAILY COUNT [facility]CLUDES [facility] Stop: 11/14/17 08:59 Last Admin: 10/10/17 09:50 Dose: 25 mg Olanzapine (Zyprexa) 5 mg PO BID [facility]CLUD[facility] Stop: 12/07/17 08:59 Last Admin: 10/10/17 16:54 Dose: 5 mg Quetiapine Fumarate (Seroquel) 12.5 mg PO TID [facility]CLUD[facility]; Protocol Stop: 12/07/17 08:59 Last Admin: 10/10/17 14:12 Dose: 12.5 mg Sodium Chloride (Nacl Tab) 1 gm PO TID [facility]CLUD[facility] Stop: 11/14/17 08:59 Last Admin: 10/10/17 14:12 Dose: 1 gm Valproate Sodium (Depakene) 250 mg PO BID [facility]; Protocol Stop: 12/05/17 16:59 Last Admin: 10/10/17 16:54 Dose: 250 mg Zolpidem Tartrate (Ambien) 5 mg PO HS PRN PRN Reason: Insomnia Stop: 11/13/17 22:44 Last Admin: 10/09/17 20:42 Dose: 5 mg General: alert HEENT: NC/AT, PERRLA Neck: Supple Lungs: CTAB Cardiovascular: RRR, Normal S1, Normal S2, without murmur Abdomen: soft, non-tender, non-distended, positive bowel sound Extremities: excoriation Neurological: alert - Procedures Procedures: Procedures Procedure Code Date APPENDECTOMY ADD-ON 82365 08/04/15 BYPASS TRANSVERSE COLON TO CUTANEOUS, OPEN APPROACH [id number] 08/04/15 COLOSTOMY 75219 08/04/15 EXCISION OF LARGE INTESTINE, OPEN APPROACH [id number] 08/04/15 GROUP PSYCHOTHERAPY 71546 07/31/15 GROUP PSYCHOTHERAPY GZHZZZZ 07/31/15 GROUP PSYCHOTHERAPY 29667 04/02/15 GROUP PSYCHOTHERAPY GZHZZZZ 04/02/15 OTHER GROUP THERAPY 94.44 11/07/14 PARTIAL REMOVAL OF COLON 85656 08/04/15 RECREATIONAL THERAPY 93.81 02/21/10 RESECTION OF APPENDIX, OPEN APPROACH [id number] 08/04/15 Internal Medicine Assmt/Plan - Assessment Assessment: MRSA NARES htn hypothyroidism diverting colostomy dmenetia obesity anemia hyponatremia hyperglycemia - Plan Plan: fall precautions continue current plan of care Nutritional Asmnt/Malnutr-PDOC - Dietary Evaluation Malnutrition Findings (Please click <Entered> for more info): Nutritional Asmnt/Malnutrition Start: 09/18/17 14: 05 Text: Status: Complete Freq: Protocol: Document 09/18/17 14:06 JANESSAG (Rec: 09/18/17 14:22 JANESSAG [email or web address]) Nutritional Asmnt/Malnutrition Patient General Information Nutritional Screening Moderate Risk Diagnosis psychosis Pertinent Medical Hx/Surgical Hx HTN, thyroid disorder, cardiomegaly, hypothyroidism, rectal prolapse, femal geital prolapse, hyponatremia, schizophrenia, ptosis, schizophrenia Subjective Information Per EMR, PO intake 100% of meals. Per nurse note, pt was confused and rambling, difficult to understand her. Current Diet Order/ Nutrition Support [facility] Pertinent Medications levothyroixine, nacl Pertinent Labs 09/17 Na 132, Cr 0.5, glucose 98 09/14 Na 124, Cl 91, Cr 0.5, glucose 106, A1c 5.8 Nutritional Hx/Data Height 6 ft 3 in Height (Calculated Centimeters) 190.5 Current Weight (lbs) 149 lb Weight (Calculated Kilograms) 67.6 Weight (Calculated Grams) 51180.3 [place] Body Weight 196 Body Mass Index (BMI) 18.6 Weight Status Approriate GI Symptoms GI Symptoms None Last BM 09/16 Difficult in: None Skin Integrity/Comment: bimal Fabrizio 19 Current %PO Good (75-100%) Estimated Nutritional Goals BEE in Kcals: Using Current wt Calories/Kcals/Kg 27-32 Kcals Calculated 8620-8764 Protein: Using Current wt Protein g/k-1.2 Protein Calculated 68-82 Fluid: ml 1836-2176ml (1ml/kcal) Nutritional Problem No current Nutrition Prob Problem N/A Malnutrition Alert Is there a minimum of two criteria No selected? Query Text:Check all the applicable criteria. A minimum of two criteria are recommended for diagnosis of either severe or non-severe malnutrition. Malnutrition Related to Morbid Obesity Malnutrition related to morbid obesity No Intervention/Recommendation Comments 1. Continue with [facility] soft [facility] diet as ordered. 2. Monitor PO intake, wt, labs and skin integrity 3. F/U as low risk in 7 days, 09/25 Expected Outcomes/Goals Expected Outcomes/Goals 1. PO intake to meet at least 75% of nutritional needs. 2. Wt stability, skin to remain intact, labs to approach WNL.
[2017-10-11] MEDS: Atorvastatin Calcium 10 MG TAB PO SCH (09:00)
--- NOTE | 2017-10-11 10:55 | Progress Notes ---
DATE: 10/11/2017 SUBJECTIVE: The patient is reported by staff to be having diarrhea. There is a note from Dr. Sales that this could be because of her being on the Depakote, so I will be discontinuing the Depakote. The patient has a colostomy bag. The patient is on Zyprexa 5 mg twice a day that was ordered by Dr. Hernandez over the weekend and apparently he put on Seroquel 12.5 mg 3 times a day. So, I will not be adding any other medications. She is currently on 2 antipsychotics that may take care of her symptoms and see how she does with the new regimen as she was on Zyprexa 25 mg daily and so far she is sleeping well, eating well. No side effects with the medication noted besides diarrhea. No sedation, no nausea, and no extrapyramidal symptoms. We will continue the patient in group therapy, milieu therapy and adjust medication as needed. JOB# [id number]
--- NOTE | 2017-10-11 14:10 | Internal Medicine Prog Note ---
Internal Medicine Subjective - Subjective Service Date: 10/11/17 Patient is:: awake, verbal, interactive Patient Complaints of:: congestion Per staff patient has:: no adverse event, no episodes of fall, poor appetite, tolerating meds Internal Medicine Objective - Results Result Diagrams: 09/17/17 07:20 09/17/17 07:20 Recent Labs: Laboratory Last Values WBC 4.3 Th/cmm (4.8-10.8) L 09/17/17 07:20 RBC 4.11 Mil/cmm (3.80-5.20) 09/17/17 07:20 Hgb 12.1 gm/dL (12-16) 09/17/17 07:20 Hct 35.1 % (41.0-60) L 09/17/17 07:20 MCV 85.3 fl (81-100) 09/17/17 07:20 MCH 29.5 pg (27.0-31.0) 09/17/17 07:20 MCHC Differential 34.6 pg (28.0-36.0) 09/17/17 07:20 RDW 12.1 % (11.5-20.0) 09/17/17 07:20 Plt Count 257 Th/cmm (150-400) 09/17/17 07:20 MPV 7.4 fl 09/17/17 07:20 Neutrophils % 47.3 % (40.0-80.0) 09/17/17 07:20 Lymphocytes % 38.6 % (20.0-50.0) 09/17/17 07:20 Monocytes % 10.2 % (2.0-10.0) H 09/17/17 07:20 Eosinophils % 2.5 % (0.0-5.0) 09/17/17 07:20 Basophils % 1.4 % (0.0-2.0) 09/17/17 07:20 Sodium 132 mEq/L (136-145) L 09/17/17 07:20 Potassium 4.1 mEq/L (3.5-5.1) 09/17/17 07:20 Chloride 98 mEq/L (98-107) 09/17/17 07:20 Carbon Dioxide 27.6 mEq/L (21.0-31.0) 09/17/17 07:20 Anion Gap 10.5 (7.0-16.0) 09/17/17 07:20 BUN 12 mg/dL (7-25) 09/17/17 07:20 Creatinine 0.5 mg/dL (0.6-1.2) L 09/17/17 07:20 Est GFR ( Amer) TNP 09/17/17 07:20 Est GFR (Non-Af Amer) TNP 09/17/17 07:20 BUN/Creatinine Ratio 24.0 09/17/17 07:20 Glucose 98 mg/dL (70-105) 09/17/17 07:20 Hemoglobin A1c % 5.8 % (4.0-6.0) 09/14/17 19:15 Calcium 9.5 mg/dL (8.6-10.3) 09/17/17 07:20 Total Bilirubin 0.4 mg/dL (0.3-1.0) 09/14/17 19:15 AST 16 U/L (13-39) 09/14/17 19:15 ALT 11 U/L (7-52) 09/14/17 19:15 Alkaline Phosphatase 94 U/L (34-104) 09/14/17 19:15 Total Protein 8.1 gm/dL (6.0-8.3) 09/14/17 19:15 Albumin 4.4 gm/dL (3.7-5.3) 09/14/17 19:15 Globulin 3.7 gm/dL 09/14/17 19:15 Albumin/Globulin Ratio 1.2 (1.0-1.8) 09/14/17 19:15 Triglycerides 267 mg/dL (<150) H 09/14/17 19:15 Cholesterol 232 mg/dL (<200) H 09/14/17 19:15 LDL Cholesterol Direct 154 mg/dL (75-193) 09/14/17 19:15 HDL Cholesterol 52 mg/dL (23-92) 09/14/17 19:15 TSH 0.80 uIU/ml (0.34-5.60) 09/14/17 19:15 Urine Source CLEAN C 09/14/17 19:20 Urine Color YELLOW 09/14/17 19:20 Urine Clarity CLEAR (CLEAR) 09/14/17 19:20 Urine pH 5.5 (4.6 - 8.0) 09/14/17 19:20 Ur Specific [place] <= 1.005 (1.005-1.030) 09/14/17 19:20 Urine Protein NEGATIVE mg/dL (NEGATIVE) 09/14/17 19:20 Urine Glucose (UA) NEGATIVE mg/dL (NEGATIVE) 09/14/17 19:20 Urine Ketones NEGATIVE mg/dL (NEGATIVE) 09/14/17 19:20 Urine Blood NEGATIVE (NEGATIVE) 09/14/17 19:20 Urine Nitrate NEGATIVE (NEGATIVE) 09/14/17 19:20 Urine Bilirubin NEGATIVE (NEGATIVE) 09/14/17 19:20 Urine Urobilinogen 0.2 E.U./dL (0.2 - 1.0) 09/14/17 19:20 Ur Leukocyte Esterase TRACE (NEGATIVE) H 09/14/17 19:20 Urine RBC 0-2 /hpf (0-5) 09/14/17 19:20 Urine WBC 0-2 /hpf (0-5) 09/14/17 19:20 Ur Epithelial Cells OCCASIONAL /lpf (FEW) 09/14/17 19:20 Urine Bacteria NONE SEEN /hpf (NONE SEEN) 09/14/17 19:20 Valproic Acid < 10.0 ug/mL (50.0-100.0) L 10/08/17 07:30 RPR NONREACTIVE (NONREACTIVE) 09/14/17 19:15 - Physical Exam Vitals and I&O: Vital Signs Temp 97.6 F 10/11/17 06:10 Pulse 70 10/11/17 09:02 Resp 20 10/11/17 09:51 BP 119/74 10/11/17 09:02 Pulse Ox 97 10/11/17 06:10 Intake & Output 10/10/17 10/11/17 10/11/17 18:59 06:59 18:59 Intake Total 2800 120 Output Total 400 350 Balance 2400 -230 Intake: Oral 2800 120 Output: Stool 400 350 Other: # Voids 6 3 Stool Characteristics Soft Foamy Active Medications: Current Medications Acetaminophen (Tylenol) 650 mg PO Q4HR PRN PRN Reason: Pain or Fever >101 Stop: 11/13/17 22:40 Last Admin: 10/01/17 17:33 Dose: 650 mg Atorvastatin Calcium (Lipitor) 20 mg PO DAILY NICOLE; Protocol Stop: 11/14/17 12:44 Last Admin: 10/11/17 09:00 Dose: 20 mg Docusate Sodium (Colace) 100 mg PO BID NICOLE Stop: 11/14/17 08:59 Last Admin: 10/11/17 09:01 Dose: 100 mg Levothyroxine Sodium 0.1 mg/ (Levothyroxine Sodium 0.025 mg) 0.125 mg PO QDAC NICOLE Stop: 11/17/17 07:29 Last Admin: 10/11/17 06:33 Dose: 0.125 mg Lisinopril (Zestril) 20 mg PO DAILY NICOLE Stop: 11/14/17 08:59 Last Admin: 10/11/17 09:02 Dose: 20 mg Lorazepam (Ativan) 0.5 mg PO Q4HR PRN; Protocol PRN Reason: Anxiety Stop: 10/14/17 22:44 Last Admin: 10/10/17 20:44 Dose: 0.5 mg Magnesium Hydroxide (Milk Of Magnesia) 30 ml PO HS PRN PRN Reason: Constipation Stop: 11/13/17 22:40 Metoprolol Tartrate (Lopressor) 25 mg PO DAILY NICOLE Stop: 11/14/17 08:59 Last Admin: 10/11/17 09:01 Dose: 25 mg Olanzapine (Zyprexa) 5 mg PO BID NICOLE Stop: 12/07/17 08:59 Last Admin: 10/11/17 09:01 Dose: 5 mg Quetiapine Fumarate (Seroquel) 12.5 mg PO TID [facility]; Protocol Stop: 12/07/17 08:59 Last Admin: 10/11/17 09:01 Dose: 12.5 mg Sodium Chloride (Nacl Tab) 1 gm PO TID NICOLE Stop: 11/14/17 08:59 Last Admin: 10/11/17 09:01 Dose: 1 gm Zolpidem Tartrate (Ambien) 5 mg PO HS PRN PRN Reason: Insomnia Stop: 11/13/17 22:44 Last Admin: 10/10/17 20:45 Dose: 5 mg General: alert HEENT: NC/AT, PERRLA Neck: Supple Lungs: CTAB Cardiovascular: RRR, Normal S1, Normal S2, without murmur Abdomen: soft, non-tender, non-distended, positive bowel sound Extremities: excoriation Neurological: alert - Procedures Procedures: Procedures Procedure Code Date APPENDECTOMY ADD-ON 32699 08/04/15 BYPASS TRANSVERSE COLON TO CUTANEOUS, OPEN APPROACH [id number] 08/04/15 COLOSTOMY 19619 08/04/15 EXCISION OF LARGE INTESTINE, OPEN APPROACH [id number] 08/04/15 GROUP PSYCHOTHERAPY 88200 07/31/15 GROUP PSYCHOTHERAPY GZHZZZZ 07/31/15 GROUP PSYCHOTHERAPY 96324 04/02/15 GROUP PSYCHOTHERAPY GZHZZZZ 04/02/15 OTHER GROUP THERAPY 94.44 11/07/14 PARTIAL REMOVAL OF COLON 24227 08/04/15 RECREATIONAL THERAPY 93.81 02/21/10 RESECTION OF APPENDIX, OPEN APPROACH [id number] 08/04/15 Internal Medicine Assmt/Plan - Assessment Assessment: MRSA NARES htn hypothyroidism diverting colostomy dmenetia obesity anemia hyponatremia hyperglycemia - Plan Plan: fall precautions continue current plan of care Nutritional Asmnt/Malnutr-PDOC - Dietary Evaluation Malnutrition Findings (Please click <Entered> for more info): Nutritional Asmnt/Malnutrition Start: 09/18/17 14: 05 Text: Status: Complete Freq: Protocol: Document 09/18/17 14:06 LCJANESSAG (Rec: 09/18/17 14:22 LCJANESSAG [email or web address]) Nutritional Asmnt/Malnutrition Patient General Information Nutritional Screening Moderate Risk Diagnosis psychosis Pertinent Medical Hx/Surgical Hx HTN, thyroid disorder, cardiomegaly, hypothyroidism, rectal prolapse, femal geital prolapse, hyponatremia, schizophrenia, ptosis, schizophrenia Subjective Information Per EMR, PO intake 100% of meals. Per nurse note, pt was confused and rambling, difficult to understand her. Current Diet Order/ Nutrition Support [facility] soft ground Pertinent Medications levothyroixine, nacl Pertinent Labs 09/17 Na 132, Cr 0.5, glucose 98 09/14 Na 124, Cl 91, Cr 0.5, glucose 106, A1c 5.8 Nutritional Hx/Data Height 6 ft 3 in Height (Calculated Centimeters) 190.5 Current Weight (lbs) 149 lb Weight (Calculated Kilograms) 67.6 Weight (Calculated Grams) 44191.3 [place] Body Weight 196 Body Mass Index (BMI) 18.6 Weight Status Approriate GI Symptoms GI Symptoms None Last BM 09/16 Difficult in: None Skin Integrity/Comment: dryness, Fabrizio 19 Current %PO Good (75-100%) Estimated Nutritional Goals BEE in Kcals: Using Current wt Calories/Kcals/Kg 27-32 Kcals Calculated 5741-6252 Protein: Using Current wt Protein g/k-1.2 Protein Calculated 68-82 Fluid: ml 1836-2176ml (1ml/kcal) Nutritional Problem No current Nutrition Prob Problem N/A Malnutrition Alert Is there a minimum of two criteria No selected? Query Text:Check all the applicable criteria. A minimum of two criteria are recommended for diagnosis of either severe or non-severe malnutrition. Malnutrition Related to Morbid Obesity Malnutrition related to morbid obesity No Intervention/Recommendation Comments 1. Continue with [facility] soft ground diet as ordered. 2. Monitor PO intake, wt, labs and skin integrity 3. F/U as low risk in 7 days, 09/25 Expected Outcomes/Goals Expected Outcomes/Goals 1. PO intake to meet at least 75% of nutritional needs. 2. Wt stability, skin to remain intact, labs to approach WNL.
[2017-10-12] MEDS: Atorvastatin Calcium 10 MG TAB PO SCH (08:12)
--- NOTE | 2017-10-12 13:02 | Internal Medicine Prog Note ---
Internal Medicine Subjective - Subjective Service Date: 10/12/17 Patient is:: awake, verbal, interactive Patient Complaints of:: congestion Per staff patient has:: no adverse event, no episodes of fall, poor appetite, tolerating meds Internal Medicine Objective - Results Result Diagrams: 09/17/17 07:20 09/17/17 07:20 Recent Labs: Laboratory Last Values WBC 4.3 Th/cmm (4.8-10.8) L 09/17/17 07:20 RBC 4.11 Mil/cmm (3.80-5.20) 09/17/17 07:20 Hgb 12.1 gm/dL (12-16) 09/17/17 07:20 Hct 35.1 % (41.0-60) L 09/17/17 07:20 MCV 85.3 fl (81-100) 09/17/17 07:20 MCH 29.5 pg (27.0-31.0) 09/17/17 07:20 MCHC Differential 34.6 pg (28.0-36.0) 09/17/17 07:20 RDW 12.1 % (11.5-20.0) 09/17/17 07:20 Plt Count 257 Th/cmm (150-400) 09/17/17 07:20 MPV 7.4 fl 09/17/17 07:20 Neutrophils % 47.3 % (40.0-80.0) 09/17/17 07:20 Lymphocytes % 38.6 % (20.0-50.0) 09/17/17 07:20 Monocytes % 10.2 % (2.0-10.0) H 09/17/17 07:20 Eosinophils % 2.5 % (0.0-5.0) 09/17/17 07:20 Basophils % 1.4 % (0.0-2.0) 09/17/17 07:20 Sodium 132 mEq/L (136-145) L 09/17/17 07:20 Potassium 4.1 mEq/L (3.5-5.1) 09/17/17 07:20 Chloride 98 mEq/L (98-107) 09/17/17 07:20 Carbon Dioxide 27.6 mEq/L (21.0-31.0) 09/17/17 07:20 Anion Gap 10.5 (7.0-16.0) 09/17/17 07:20 BUN 12 mg/dL (7-25) 09/17/17 07:20 Creatinine 0.5 mg/dL (0.6-1.2) L 09/17/17 07:20 Est GFR ( Amer) TNP 09/17/17 07:20 Est GFR (Non-Af Amer) TNP 09/17/17 07:20 BUN/Creatinine Ratio 24.0 09/17/17 07:20 Glucose 98 mg/dL (70-105) 09/17/17 07:20 Hemoglobin A1c % 5.8 % (4.0-6.0) 09/14/17 19:15 Calcium 9.5 mg/dL (8.6-10.3) 09/17/17 07:20 Total Bilirubin 0.4 mg/dL (0.3-1.0) 09/14/17 19:15 AST 16 U/L (13-39) 09/14/17 19:15 ALT 11 U/L (7-52) 09/14/17 19:15 Alkaline Phosphatase 94 U/L (34-104) 09/14/17 19:15 Total Protein 8.1 gm/dL (6.0-8.3) 09/14/17 19:15 Albumin 4.4 gm/dL (3.7-5.3) 09/14/17 19:15 Globulin 3.7 gm/dL 09/14/17 19:15 Albumin/Globulin Ratio 1.2 (1.0-1.8) 09/14/17 19:15 Triglycerides 267 mg/dL (<150) H 09/14/17 19:15 Cholesterol 232 mg/dL (<200) H 09/14/17 19:15 LDL Cholesterol Direct 154 mg/dL (75-193) 09/14/17 19:15 HDL Cholesterol 52 mg/dL (23-92) 09/14/17 19:15 TSH 0.80 uIU/ml (0.34-5.60) 09/14/17 19:15 Urine Source CLEAN C 09/14/17 19:20 Urine Color YELLOW 09/14/17 19:20 Urine Clarity CLEAR (CLEAR) 09/14/17 19:20 Urine pH 5.5 (4.6 - 8.0) 09/14/17 19:20 Ur Specific [place] <= 1.005 (1.005-1.030) 09/14/17 19:20 Urine Protein NEGATIVE mg/dL (NEGATIVE) 09/14/17 19:20 Urine Glucose (UA) NEGATIVE mg/dL (NEGATIVE) 09/14/17 19:20 Urine Ketones NEGATIVE mg/dL (NEGATIVE) 09/14/17 19:20 Urine Blood NEGATIVE (NEGATIVE) 09/14/17 19:20 Urine Nitrate NEGATIVE (NEGATIVE) 09/14/17 19:20 Urine Bilirubin NEGATIVE (NEGATIVE) 09/14/17 19:20 Urine Urobilinogen 0.2 E.U./dL (0.2 - 1.0) 09/14/17 19:20 Ur Leukocyte Esterase TRACE (NEGATIVE) H 09/14/17 19:20 Urine RBC 0-2 /hpf (0-5) 09/14/17 19:20 Urine WBC 0-2 /hpf (0-5) 09/14/17 19:20 Ur Epithelial Cells OCCASIONAL /lpf (FEW) 09/14/17 19:20 Urine Bacteria NONE SEEN /hpf (NONE SEEN) 09/14/17 19:20 Valproic Acid < 10.0 ug/mL (50.0-100.0) L 10/08/17 07:30 RPR NONREACTIVE (NONREACTIVE) 09/14/17 19:15 - Physical Exam Vitals and I&O: Vital Signs Temp 97.6 F 10/12/17 06:19 Pulse 72 10/12/17 08:13 Resp 19 10/12/17 06:19 BP 110/62 10/12/17 08:13 Pulse Ox 98 10/12/17 06:19 Intake & Output 10/11/17 10/12/17 10/12/17 18:59 06:59 18:59 Intake Total 900 120 Balance 900 120 Intake: Oral 900 120 Other: # Voids 4 3 # Bowel Movements 2 Stool Characteristics Foamy Soft Soft Active Medications: Current Medications Acetaminophen (Tylenol) 650 mg PO Q4HR PRN PRN Reason: Pain or Fever >101 Stop: 11/13/17 22:40 Last Admin: 10/01/17 17:33 Dose: 650 mg Atorvastatin Calcium (Lipitor) 20 mg PO DAILY NICOLE; Protocol Stop: 11/14/17 12:44 Last Admin: 10/12/17 08:12 Dose: 20 mg Docusate Sodium (Colace) 100 mg PO BID [facility] Stop: 11/14/17 08:59 Last Admin: 10/12/17 08:13 Dose: 100 mg Levothyroxine Sodium 0.1 mg/ (Levothyroxine Sodium 0.025 mg) 0.125 mg PO QDAC NICOLE Stop: 11/17/17 07:29 Last Admin: 10/12/17 06:39 Dose: 0.125 mg Lisinopril (Zestril) 20 mg PO DAILY NICOLE Stop: 11/14/17 08:59 Last Admin: 10/12/17 08:12 Dose: 20 mg Lorazepam (Ativan) 0.5 mg PO Q4HR PRN; Protocol PRN Reason: Anxiety Stop: 10/14/17 22:44 Last Admin: 10/12/17 08:11 Dose: 0.5 mg Magnesium Hydroxide (Milk Of Magnesia) 30 ml PO HS PRN PRN Reason: Constipation Stop: 11/13/17 22:40 Metoprolol Tartrate (Lopressor) 25 mg PO DAILY NICOLE Stop: 11/14/17 08:59 Last Admin: 10/12/17 08:13 Dose: 25 mg Olanzapine (Zyprexa) 5 mg PO BID NICOLE Stop: 12/07/17 08:59 Last Admin: 10/12/17 08:14 Dose: 5 mg Quetiapine Fumarate (Seroquel) 25 mg PO TID NICOLE; Protocol Stop: 12/11/17 13:59 Sodium Chloride (Nacl Tab) 1 gm PO TID NICOLE Stop: 11/14/17 08:59 Last Admin: 10/12/17 08:14 Dose: 1 gm Zolpidem Tartrate (Ambien) 5 mg PO HS PRN PRN Reason: Insomnia Stop: 11/13/17 22:44 Last Admin: 10/10/17 20:45 Dose: 5 mg General: alert HEENT: NC/AT, PERRLA Neck: Supple Lungs: CTAB Cardiovascular: RRR, Normal S1, Normal S2, without murmur Abdomen: soft, non-tender, non-distended, positive bowel sound Extremities: excoriation Neurological: alert - Procedures Procedures: Procedures Procedure Code Date APPENDECTOMY ADD-ON 63429 08/04/15 BYPASS TRANSVERSE COLON TO CUTANEOUS, OPEN APPROACH [id number] 08/04/15 COLOSTOMY 92564 08/04/15 EXCISION OF LARGE INTESTINE, OPEN APPROACH [id number] 08/04/15 GROUP PSYCHOTHERAPY 16274 07/31/15 GROUP PSYCHOTHERAPY GZHZZZZ 07/31/15 GROUP PSYCHOTHERAPY 94815 04/02/15 GROUP PSYCHOTHERAPY GZHZZZZ 04/02/15 OTHER GROUP THERAPY 94.44 11/07/14 PARTIAL REMOVAL OF COLON 46676 08/04/15 RECREATIONAL THERAPY 93.81 02/21/10 RESECTION OF APPENDIX, OPEN APPROACH [id number] 08/04/15 Internal Medicine Assmt/Plan - Assessment Assessment: MRSA NARES htn hypothyroidism diverting colostomy dmenetia obesity anemia hyponatremia hyperglycemia - Plan Plan: fall precautions continue current plan of care Nutritional Asmnt/Malnutr-PDOC - Dietary Evaluation Malnutrition Findings (Please click <Entered> for more info): Nutritional Asmnt/Malnutrition Start: 09/18/17 14: 05 Text: Status: Complete Freq: Protocol: Document 09/18/17 14:06 EDWIN (Rec: 09/18/17 14:22 EDWIN [email or web address]) Nutritional Asmnt/Malnutrition Patient General Information Nutritional Screening Moderate Risk Diagnosis psychosis Pertinent Medical Hx/Surgical Hx HTN, thyroid disorder, cardiomegaly, hypothyroidism, rectal prolapse, femal geital prolapse, hyponatremia, schizophrenia, ptosis, schizophrenia Subjective Information Per EMR, PO intake 100% of meals. Per nurse note, pt was confused and rambling, difficult to understand her. Current Diet Order/ Nutrition Support [facility] soft ground Pertinent Medications levothyroixine, nacl Pertinent Labs 09/17 Na 132, Cr 0.5, glucose 98 09/14 Na 124, Cl 91, Cr 0.5, glucose 106, A1c 5.8 Nutritional Hx/Data Height 6 ft 3 in Height (Calculated Centimeters) 190.5 Current Weight (lbs) 149 lb Weight (Calculated Kilograms) 67.6 Weight (Calculated Grams) 91139.3 [place] Body Weight 196 Body Mass Index (BMI) 18.6 Weight Status Approriate GI Symptoms GI Symptoms None Last BM 09/16 Difficult in: None Skin Integrity/Comment: dryness, Fabrizio 19 Current %PO Good (75-100%) Estimated Nutritional Goals BEE in Kcals: Using Current wt Calories/Kcals/Kg 27-32 Kcals Calculated 1489-3260 Protein: Using Current wt Protein g/k-1.2 Protein Calculated 68-82 Fluid: ml 1836-2176ml (1ml/kcal) Nutritional Problem No current Nutrition Prob Problem N/A Malnutrition Alert Is there a minimum of two criteria No selected? Query Text:Check all the applicable criteria. A minimum of two criteria are recommended for diagnosis of either severe or non-severe malnutrition. Malnutrition Related to Morbid Obesity Malnutrition related to morbid obesity No Intervention/Recommendation Comments 1. Continue with [facility] soft ground diet as ordered. 2. Monitor PO intake, wt, labs and skin integrity 3. F/U as low risk in 7 days, 09/25 Expected Outcomes/Goals Expected Outcomes/Goals 1. PO intake to meet at least 75% of nutritional needs. 2. Wt stability, skin to remain intact, labs to approach WNL.
--- NOTE | 2017-10-12 15:11 | Progress Notes ---
DATE: 10/12/2017 Case was discussed with staff of the patient and reviewed records. The patient continues to be very much acting out, throwing her feces, urinating on the floor, very hard to redirect, confused, unable to make safe plan for self-care. Dr. Hernandez initiated Seroquel on her a few days ago 12.5 mg 3 times a day will be increasing the dose to 25 mg 3 times a day to help with her agitation, psychotic behavior, impulsivity, psychosis. No side effects with the medication, no sedation, no nausea, no extrapyramidal symptoms. We will continue outpatient group therapy, milieu therapy, adjust medication as needed. JOB# [id number]
[2017-10-13] MEDS: Atorvastatin Calcium 10 MG TAB PO SCH (08:17)
[2017-10-13] MEDS ORDERED: Haloperidol Lactate 5 mg/mL 1mL Vial ONE (11:54)
[2017-10-13] MEDS ORDERED: Haloperidol Lactate 5 mg/mL 1mL Vial IM ONE (12:15)
--- NOTE | 2017-10-13 13:01 | Internal Medicine Prog Note ---
Internal Medicine Subjective - Subjective Service Date: 10/13/17 Patient is:: awake, verbal, interactive Patient Complaints of:: congestion Per staff patient has:: no adverse event, no episodes of fall, poor appetite, tolerating meds Internal Medicine Objective - Results Result Diagrams: 09/17/17 07:20 09/17/17 07:20 Recent Labs: Laboratory Last Values WBC 4.3 Th/cmm (4.8-10.8) L 09/17/17 07:20 RBC 4.11 Mil/cmm (3.80-5.20) 09/17/17 07:20 Hgb 12.1 gm/dL (12-16) 09/17/17 07:20 Hct 35.1 % (41.0-60) L 09/17/17 07:20 MCV 85.3 fl (81-100) 09/17/17 07:20 MCH 29.5 pg (27.0-31.0) 09/17/17 07:20 MCHC Differential 34.6 pg (28.0-36.0) 09/17/17 07:20 RDW 12.1 % (11.5-20.0) 09/17/17 07:20 Plt Count 257 Th/cmm (150-400) 09/17/17 07:20 MPV 7.4 fl 09/17/17 07:20 Neutrophils % 47.3 % (40.0-80.0) 09/17/17 07:20 Lymphocytes % 38.6 % (20.0-50.0) 09/17/17 07:20 Monocytes % 10.2 % (2.0-10.0) H 09/17/17 07:20 Eosinophils % 2.5 % (0.0-5.0) 09/17/17 07:20 Basophils % 1.4 % (0.0-2.0) 09/17/17 07:20 Sodium 132 mEq/L (136-145) L 09/17/17 07:20 Potassium 4.1 mEq/L (3.5-5.1) 09/17/17 07:20 Chloride 98 mEq/L (98-107) 09/17/17 07:20 Carbon Dioxide 27.6 mEq/L (21.0-31.0) 09/17/17 07:20 Anion Gap 10.5 (7.0-16.0) 09/17/17 07:20 BUN 12 mg/dL (7-25) 09/17/17 07:20 Creatinine 0.5 mg/dL (0.6-1.2) L 09/17/17 07:20 Est GFR ( Amer) TNP 09/17/17 07:20 Est GFR (Non-Af Amer) TNP 09/17/17 07:20 BUN/Creatinine Ratio 24.0 09/17/17 07:20 Glucose 98 mg/dL (70-105) 09/17/17 07:20 Hemoglobin A1c % 5.8 % (4.0-6.0) 09/14/17 19:15 Calcium 9.5 mg/dL (8.6-10.3) 09/17/17 07:20 Total Bilirubin 0.4 mg/dL (0.3-1.0) 09/14/17 19:15 AST 16 U/L (13-39) 09/14/17 19:15 ALT 11 U/L (7-52) 09/14/17 19:15 Alkaline Phosphatase 94 U/L (34-104) 09/14/17 19:15 Total Protein 8.1 gm/dL (6.0-8.3) 09/14/17 19:15 Albumin 4.4 gm/dL (3.7-5.3) 09/14/17 19:15 Globulin 3.7 gm/dL 09/14/17 19:15 Albumin/Globulin Ratio 1.2 (1.0-1.8) 09/14/17 19:15 Triglycerides 267 mg/dL (<150) H 09/14/17 19:15 Cholesterol 232 mg/dL (<200) H 09/14/17 19:15 LDL Cholesterol Direct 154 mg/dL (75-193) 09/14/17 19:15 HDL Cholesterol 52 mg/dL (23-92) 09/14/17 19:15 TSH 0.80 uIU/ml (0.34-5.60) 09/14/17 19:15 Urine Source CLEAN C 09/14/17 19:20 Urine Color YELLOW 09/14/17 19:20 Urine Clarity CLEAR (CLEAR) 09/14/17 19:20 Urine pH 5.5 (4.6 - 8.0) 09/14/17 19:20 Ur Specific [place] <= 1.005 (1.005-1.030) 09/14/17 19:20 Urine Protein NEGATIVE mg/dL (NEGATIVE) 09/14/17 19:20 Urine Glucose (UA) NEGATIVE mg/dL (NEGATIVE) 09/14/17 19:20 Urine Ketones NEGATIVE mg/dL (NEGATIVE) 09/14/17 19:20 Urine Blood NEGATIVE (NEGATIVE) 09/14/17 19:20 Urine Nitrate NEGATIVE (NEGATIVE) 09/14/17 19:20 Urine Bilirubin NEGATIVE (NEGATIVE) 09/14/17 19:20 Urine Urobilinogen 0.2 E.U./dL (0.2 - 1.0) 09/14/17 19:20 Ur Leukocyte Esterase TRACE (NEGATIVE) H 09/14/17 19:20 Urine RBC 0-2 /hpf (0-5) 09/14/17 19:20 Urine WBC 0-2 /hpf (0-5) 09/14/17 19:20 Ur Epithelial Cells OCCASIONAL /lpf (FEW) 09/14/17 19:20 Urine Bacteria NONE SEEN /hpf (NONE SEEN) 09/14/17 19:20 Valproic Acid < 10.0 ug/mL (50.0-100.0) L 10/08/17 07:30 RPR NONREACTIVE (NONREACTIVE) 09/14/17 19:15 - Physical Exam Vitals and I&O: Vital Signs Temp 99.5 F 10/13/17 07:02 Pulse 75 10/13/17 08:22 Resp 18 10/13/17 07:02 BP 110/62 10/13/17 08:22 Pulse Ox 95 10/13/17 07:02 Intake & Output 10/12/17 10/13/17 10/13/17 18:59 06:59 18:59 Intake Total 500 Output Total 300 Balance -300 500 Intake: Oral 500 Output: Stool 300 Other: # Voids 4 5 # Bowel Movements 0 Stool Characteristics Soft Soft Soft Active Medications: Current Medications Acetaminophen (Tylenol) 650 mg PO Q4HR PRN PRN Reason: Pain or Fever >101 Stop: 11/13/17 22:40 Last Admin: 10/01/17 17:33 Dose: 650 mg Atorvastatin Calcium (Lipitor) 20 mg PO DAILY NICOLE; Protocol Stop: 11/14/17 12:44 Last Admin: 10/13/17 08:17 Dose: 20 mg Docusate Sodium (Colace) 100 mg PO BID [facility] Stop: 11/14/17 08:59 Last Admin: 10/13/17 08:18 Dose: 100 mg Levothyroxine Sodium 0.1 mg/ (Levothyroxine Sodium 0.025 mg) 0.125 mg PO QDAC NICOLE Stop: 11/17/17 07:29 Last Admin: 10/13/17 06:33 Dose: 0.125 mg Lisinopril (Zestril) 20 mg PO DAILY NICOLE Stop: 11/14/17 08:59 Last Admin: 10/13/17 08:20 Dose: 20 mg Lorazepam (Ativan) 0.5 mg PO Q4HR PRN; Protocol PRN Reason: Anxiety Stop: 10/14/17 22:44 Last Admin: 10/12/17 16:18 Dose: 0.5 mg Magnesium Hydroxide (Milk Of Magnesia) 30 ml PO HS PRN PRN Reason: Constipation Stop: 11/13/17 22:40 Metoprolol Tartrate (Lopressor) 25 mg PO DAILY NICOLE Stop: 11/14/17 08:59 Last Admin: 10/13/17 08:22 Dose: 25 mg Olanzapine (Zyprexa) 5 mg PO BID NICOLE Stop: 12/07/17 08:59 Last Admin: 10/13/17 08:22 Dose: 5 mg Quetiapine Fumarate (Seroquel) 50 mg PO TID NICOLE; Protocol Stop: 12/12/17 13:59 Sodium Chloride (Nacl Tab) 1 gm PO TID NICOLE Stop: 11/14/17 08:59 Last Admin: 10/13/17 08:20 Dose: 1 gm Zolpidem Tartrate (Ambien) 5 mg PO HS PRN PRN Reason: Insomnia Stop: 11/13/17 22:44 Last Admin: 10/12/17 21:04 Dose: 5 mg General: alert HEENT: NC/AT, PERRLA Neck: Supple Lungs: CTAB Cardiovascular: RRR, Normal S1, Normal S2, without murmur Abdomen: soft, non-tender, non-distended, positive bowel sound Extremities: excoriation Neurological: alert - Procedures Procedures: Procedures Procedure Code Date APPENDECTOMY ADD-ON 98686 08/04/15 BYPASS TRANSVERSE COLON TO CUTANEOUS, OPEN APPROACH [id number] 08/04/15 COLOSTOMY 52894 08/04/15 EXCISION OF LARGE INTESTINE, OPEN APPROACH [id number] 08/04/15 GROUP PSYCHOTHERAPY 36744 07/31/15 GROUP PSYCHOTHERAPY GZHZZZZ 07/31/15 GROUP PSYCHOTHERAPY 97955 04/02/15 GROUP PSYCHOTHERAPY GZHZZZZ 04/02/15 OTHER GROUP THERAPY 94.44 11/07/14 PARTIAL REMOVAL OF COLON 40263 08/04/15 RECREATIONAL THERAPY 93.81 02/21/10 RESECTION OF APPENDIX, OPEN APPROACH [id number] 08/04/15 Internal Medicine Assmt/Plan - Assessment Assessment: MRSA NARES htn hypothyroidism diverting colostomy dmenetia obesity anemia hyponatremia hyperglycemia - Plan Plan: fall precautions continue current plan of care Nutritional Asmnt/Malnutr-PDOC - Dietary Evaluation Malnutrition Findings (Please click <Entered> for more info): Nutritional Asmnt/Malnutrition Start: 09/18/17 14: 05 Text: Status: Complete Freq: Protocol: Document 09/18/17 14:06 EDWIN (Rec: 09/18/17 14:22 EDWIN [email or web address]) Nutritional Asmnt/Malnutrition Patient General Information Nutritional Screening Moderate Risk Diagnosis psychosis Pertinent Medical Hx/Surgical Hx HTN, thyroid disorder, cardiomegaly, hypothyroidism, rectal prolapse, femal geital prolapse, hyponatremia, schizophrenia, ptosis, schizophrenia Subjective Information Per EMR, PO intake 100% of meals. Per nurse note, pt was confused and rambling, difficult to understand her. Current Diet Order/ Nutrition Support [facility] soft ground Pertinent Medications levothyroixine, nacl Pertinent Labs 09/17 Na 132, Cr 0.5, glucose 98 09/14 Na 124, Cl 91, Cr 0.5, glucose 106, A1c 5.8 Nutritional Hx/Data Height 6 ft 3 in Height (Calculated Centimeters) 190.5 Current Weight (lbs) 149 lb Weight (Calculated Kilograms) 67.6 Weight (Calculated Grams) 73588.3 [place] Body Weight 196 Body Mass Index (BMI) 18.6 Weight Status Approriate GI Symptoms GI Symptoms None Last BM 09/16 Difficult in: None Skin Integrity/Comment: dryness, Fabrizio 19 Current %PO Good (75-100%) Estimated Nutritional Goals BEE in Kcals: Using Current wt Calories/Kcals/Kg 27-32 Kcals Calculated 2770-0815 Protein: Using Current wt Protein g/k-1.2 Protein Calculated 68-82 Fluid: ml 1836-2176ml (1ml/kcal) Nutritional Problem No current Nutrition Prob Problem N/A Malnutrition Alert Is there a minimum of two criteria No selected? Query Text:Check all the applicable criteria. A minimum of two criteria are recommended for diagnosis of either severe or non-severe malnutrition. Malnutrition Related to Morbid Obesity Malnutrition related to morbid obesity No Intervention/Recommendation Comments 1. Continue with [facility] soft ground diet as ordered. 2. Monitor PO intake, wt, labs and skin integrity 3. F/U as low risk in 7 days, 09/25 Expected Outcomes/Goals Expected Outcomes/Goals 1. PO intake to meet at least 75% of nutritional needs. 2. Wt stability, skin to remain intact, labs to approach WNL.
--- NOTE | 2017-10-13 23:42 | Progress Notes ---
DATE: 10/13/2017 SUBJECTIVE: Case was discussed with staff of the patient and reviewed records. The patient had to be medicated today. She continues to be out of control, throwing feces on staff and on the floor. She has a colostomy bag. She continues to be unpredictable, impulsive, needing redirection. I have increased her Seroquel dose yesterday. She was on Zyprexa higher dose, but that was ineffective. She was actually up to 25 mg a day, so I tried to increase the dose of Seroquel today to try to reach therapeutic dose to help her agitation and so far she continues to be rambling, unpredictable, impulsive, needing redirection. No side effects with the medication, no sedation, no nausea, no extrapyramidal symptoms. PLAN OF CARE: We will continue to work with the patient in group therapy, milieu therapy, adjust medication as needed. JOB# [id number]
[2017-10-14] MEDS: Atorvastatin Calcium 10 MG TAB PO SCH (09:11)
--- NOTE | 2017-10-14 12:13 | Internal Medicine Prog Note ---
Internal Medicine Subjective - Subjective Service Date: 10/14/17 Patient is:: awake, verbal, interactive Patient Complaints of:: congestion Per staff patient has:: no adverse event, no episodes of fall, poor appetite, tolerating meds Internal Medicine Objective - Results Result Diagrams: 09/17/17 07:20 09/17/17 07:20 Recent Labs: Laboratory Last Values WBC 4.3 Th/cmm (4.8-10.8) L 09/17/17 07:20 RBC 4.11 Mil/cmm (3.80-5.20) 09/17/17 07:20 Hgb 12.1 gm/dL (12-16) 09/17/17 07:20 Hct 35.1 % (41.0-60) L 09/17/17 07:20 MCV 85.3 fl (81-100) 09/17/17 07:20 MCH 29.5 pg (27.0-31.0) 09/17/17 07:20 MCHC Differential 34.6 pg (28.0-36.0) 09/17/17 07:20 RDW 12.1 % (11.5-20.0) 09/17/17 07:20 Plt Count 257 Th/cmm (150-400) 09/17/17 07:20 MPV 7.4 fl 09/17/17 07:20 Neutrophils % 47.3 % (40.0-80.0) 09/17/17 07:20 Lymphocytes % 38.6 % (20.0-50.0) 09/17/17 07:20 Monocytes % 10.2 % (2.0-10.0) H 09/17/17 07:20 Eosinophils % 2.5 % (0.0-5.0) 09/17/17 07:20 Basophils % 1.4 % (0.0-2.0) 09/17/17 07:20 Sodium 132 mEq/L (136-145) L 09/17/17 07:20 Potassium 4.1 mEq/L (3.5-5.1) 09/17/17 07:20 Chloride 98 mEq/L (98-107) 09/17/17 07:20 Carbon Dioxide 27.6 mEq/L (21.0-31.0) 09/17/17 07:20 Anion Gap 10.5 (7.0-16.0) 09/17/17 07:20 BUN 12 mg/dL (7-25) 09/17/17 07:20 Creatinine 0.5 mg/dL (0.6-1.2) L 09/17/17 07:20 Est GFR ( Amer) TNP 09/17/17 07:20 Est GFR (Non-Af Amer) TNP 09/17/17 07:20 BUN/Creatinine Ratio 24.0 09/17/17 07:20 Glucose 98 mg/dL (70-105) 09/17/17 07:20 Hemoglobin A1c % 5.8 % (4.0-6.0) 09/14/17 19:15 Calcium 9.5 mg/dL (8.6-10.3) 09/17/17 07:20 Total Bilirubin 0.4 mg/dL (0.3-1.0) 09/14/17 19:15 AST 16 U/L (13-39) 09/14/17 19:15 ALT 11 U/L (7-52) 09/14/17 19:15 Alkaline Phosphatase 94 U/L (34-104) 09/14/17 19:15 Total Protein 8.1 gm/dL (6.0-8.3) 09/14/17 19:15 Albumin 4.4 gm/dL (3.7-5.3) 09/14/17 19:15 Globulin 3.7 gm/dL 09/14/17 19:15 Albumin/Globulin Ratio 1.2 (1.0-1.8) 09/14/17 19:15 Triglycerides 267 mg/dL (<150) H 09/14/17 19:15 Cholesterol 232 mg/dL (<200) H 09/14/17 19:15 LDL Cholesterol Direct 154 mg/dL (75-193) 09/14/17 19:15 HDL Cholesterol 52 mg/dL (23-92) 09/14/17 19:15 TSH 0.80 uIU/ml (0.34-5.60) 09/14/17 19:15 Urine Source CLEAN C 09/14/17 19:20 Urine Color YELLOW 09/14/17 19:20 Urine Clarity CLEAR (CLEAR) 09/14/17 19:20 Urine pH 5.5 (4.6 - 8.0) 09/14/17 19:20 Ur Specific [place] <= 1.005 (1.005-1.030) 09/14/17 19:20 Urine Protein NEGATIVE mg/dL (NEGATIVE) 09/14/17 19:20 Urine Glucose (UA) NEGATIVE mg/dL (NEGATIVE) 09/14/17 19:20 Urine Ketones NEGATIVE mg/dL (NEGATIVE) 09/14/17 19:20 Urine Blood NEGATIVE (NEGATIVE) 09/14/17 19:20 Urine Nitrate NEGATIVE (NEGATIVE) 09/14/17 19:20 Urine Bilirubin NEGATIVE (NEGATIVE) 09/14/17 19:20 Urine Urobilinogen 0.2 E.U./dL (0.2 - 1.0) 09/14/17 19:20 Ur Leukocyte Esterase TRACE (NEGATIVE) H 09/14/17 19:20 Urine RBC 0-2 /hpf (0-5) 09/14/17 19:20 Urine WBC 0-2 /hpf (0-5) 09/14/17 19:20 Ur Epithelial Cells OCCASIONAL /lpf (FEW) 09/14/17 19:20 Urine Bacteria NONE SEEN /hpf (NONE SEEN) 09/14/17 19:20 Valproic Acid < 10.0 ug/mL (50.0-100.0) L 10/08/17 07:30 RPR NONREACTIVE (NONREACTIVE) 09/14/17 19:15 - Physical Exam Vitals and I&O: Vital Signs Temp 98.6 F 10/14/17 08:00 Pulse 70 10/14/17 09:11 Resp 20 10/14/17 08:00 BP 128/70 10/14/17 09:11 Pulse Ox 95 10/14/17 08:00 Intake & Output 10/13/17 10/14/17 10/14/17 18:59 06:59 18:59 Intake Total 1200 Balance 1200 Intake: Oral 1200 Other: # Voids 5 # Bowel Movements 2 Stool Characteristics Soft Soft Soft Active Medications: Current Medications Acetaminophen (Tylenol) 650 mg PO Q4HR PRN PRN Reason: Pain or Fever >101 Stop: 11/13/17 22:40 Last Admin: 10/01/17 17:33 Dose: 650 mg Atorvastatin Calcium (Lipitor) 20 mg PO DAILY NICOLE; Protocol Stop: 11/14/17 12:44 Last Admin: 10/14/17 09:11 Dose: 20 mg Docusate Sodium (Colace) 100 mg PO BID [facility] Stop: 11/14/17 08:59 Last Admin: 10/14/17 09:19 Dose: Not Given Levothyroxine Sodium 0.1 mg/ (Levothyroxine Sodium 0.025 mg) 0.125 mg PO QDAC NICOLE Stop: 11/17/17 07:29 Last Admin: 10/14/17 06:38 Dose: 0.125 mg Lisinopril (Zestril) 20 mg PO DAILY [facility] Stop: 11/14/17 08:59 Last Admin: 10/14/17 09:11 Dose: 20 mg Lorazepam (Ativan) 0.5 mg PO Q4HR PRN; Protocol PRN Reason: Anxiety Stop: 10/14/17 22:44 Last Admin: 10/13/17 20:39 Dose: 0.5 mg Magnesium Hydroxide (Milk Of Magnesia) 30 ml PO HS PRN PRN Reason: Constipation Stop: 11/13/17 22:40 Metoprolol Tartrate (Lopressor) 25 mg PO DAILY [facility] Stop: 11/14/17 08:59 Last Admin: 10/14/17 09:10 Dose: 25 mg Olanzapine (Zyprexa) 5 mg PO BID NICOLE Stop: 12/07/17 08:59 Last Admin: 10/14/17 09:12 Dose: 5 mg Quetiapine Fumarate (Seroquel) 50 mg PO TID [facility]; Protocol Stop: 12/12/17 13:59 Last Admin: 10/14/17 09:12 Dose: 50 mg Sodium Chloride (Nacl Tab) 1 gm PO TID [facility] Stop: 11/14/17 08:59 Last Admin: 10/14/17 09:13 Dose: 1 gm Zolpidem Tartrate (Ambien) 5 mg PO HS PRN PRN Reason: Insomnia Stop: 11/13/17 22:44 Last Admin: 10/13/17 20:39 Dose: 5 mg General: alert HEENT: NC/AT, PERRLA Neck: Supple Lungs: CTAB Cardiovascular: RRR, Normal S1, Normal S2, without murmur Abdomen: soft, non-tender, non-distended, positive bowel sound Extremities: excoriation Neurological: alert - Procedures Procedures: Procedures Procedure Code Date APPENDECTOMY ADD-ON 86145 08/04/15 BYPASS TRANSVERSE COLON TO CUTANEOUS, OPEN APPROACH [id number] 08/04/15 COLOSTOMY 04608 08/04/15 EXCISION OF LARGE INTESTINE, OPEN APPROACH [id number] 08/04/15 GROUP PSYCHOTHERAPY 61709 07/31/15 GROUP PSYCHOTHERAPY GZHZZZZ 07/31/15 GROUP PSYCHOTHERAPY 70505 04/02/15 GROUP PSYCHOTHERAPY GZHZZZZ 04/02/15 OTHER GROUP THERAPY 94.44 11/07/14 PARTIAL REMOVAL OF COLON 97189 08/04/15 RECREATIONAL THERAPY 93.81 02/21/10 RESECTION OF APPENDIX, OPEN APPROACH [id number] 08/04/15 Internal Medicine Assmt/Plan - Assessment Assessment: MRSA NARES htn hypothyroidism diverting colostomy dmenetia obesity anemia hyponatremia hyperglycemia - Plan Plan: fall precautions continue current plan of care Nutritional Asmnt/Malnutr-PDOC - Dietary Evaluation Malnutrition Findings (Please click <Entered> for more info): Nutritional Asmnt/Malnutrition Start: 09/18/17 14: 05 Text: Status: Complete Freq: Protocol: Document 09/18/17 14:06 EDWIN (Rec: 09/18/17 14:22 JANESSA [email or web address]) Nutritional Asmnt/Malnutrition Patient General Information Nutritional Screening Moderate Risk Diagnosis psychosis Pertinent Medical Hx/Surgical Hx HTN, thyroid disorder, cardiomegaly, hypothyroidism, rectal prolapse, femal geital prolapse, hyponatremia, schizophrenia, ptosis, schizophrenia Subjective Information Per EMR, PO intake 100% of meals. Per nurse note, pt was confused and rambling, difficult to understand her. Current Diet Order/ Nutrition Support [facility] soft ground Pertinent Medications levothyroixine, nacl Pertinent Labs 09/17 Na 132, Cr 0.5, glucose 98 09/14 Na 124, Cl 91, Cr 0.5, glucose 106, A1c 5.8 Nutritional Hx/Data Height 6 ft 3 in Height (Calculated Centimeters) 190.5 Current Weight (lbs) 149 lb Weight (Calculated Kilograms) 67.6 Weight (Calculated Grams) 22189.3 [place] Body Weight 196 Body Mass Index (BMI) 18.6 Weight Status Approriate GI Symptoms GI Symptoms None Last BM 09/16 Difficult in: None Skin Integrity/Comment: dryness, Fabrizio 19 Current %PO Good (75-100%) Estimated Nutritional Goals BEE in Kcals: Using Current wt Calories/Kcals/Kg 27-32 Kcals Calculated 8217-9259 Protein: Using Current wt Protein g/k-1.2 Protein Calculated 68-82 Fluid: ml 1836-2176ml (1ml/kcal) Nutritional Problem No current Nutrition Prob Problem N/A Malnutrition Alert Is there a minimum of two criteria No selected? Query Text:Check all the applicable criteria. A minimum of two criteria are recommended for diagnosis of either severe or non-severe malnutrition. Malnutrition Related to Morbid Obesity Malnutrition related to morbid obesity No Intervention/Recommendation Comments 1. Continue with [facility] soft ground diet as ordered. 2. Monitor PO intake, wt, labs and skin integrity 3. F/U as low risk in 7 days, 09/25 Expected Outcomes/Goals Expected Outcomes/Goals 1. PO intake to meet at least 75% of nutritional needs. 2. Wt stability, skin to remain intact, labs to approach WNL.
--- NOTE | 2017-10-14 22:56 | Progress Notes ---
DATE: 10/14/2017 Case was discussed with staff of the patient, reviewed records. The patient continues to be demanding, inappropriate throwing things at the staff, her feces, urinating on the floor. Continues to be unpredictable, impulsive, continues to have poor insight. I will be increasing Seroquel to 100 mg twice a day to help improve her agitation. She is still hard to redirect. She is compliant with the medication with no side effects, no sedation, no nausea, no extrapyramidal symptoms and we will continue to work with the patient in group therapy, milieu therapy, and adjust medication as needed. JOB# [id number]
[2017-10-15] MEDS: Atorvastatin Calcium 10 MG TAB PO SCH (09:11)
--- NOTE | 2017-10-15 11:45 | Internal Medicine Prog Note ---
Internal Medicine Subjective - Subjective Service Date: 10/15/17 Patient is:: awake, verbal, interactive Patient Complaints of:: congestion Per staff patient has:: no adverse event, no episodes of fall, poor appetite, tolerating meds Internal Medicine Objective - Results Result Diagrams: 09/17/17 07:20 09/17/17 07:20 Recent Labs: Laboratory Last Values WBC 4.3 Th/cmm (4.8-10.8) L 09/17/17 07:20 RBC 4.11 Mil/cmm (3.80-5.20) 09/17/17 07:20 Hgb 12.1 gm/dL (12-16) 09/17/17 07:20 Hct 35.1 % (41.0-60) L 09/17/17 07:20 MCV 85.3 fl (81-100) 09/17/17 07:20 MCH 29.5 pg (27.0-31.0) 09/17/17 07:20 MCHC Differential 34.6 pg (28.0-36.0) 09/17/17 07:20 RDW 12.1 % (11.5-20.0) 09/17/17 07:20 Plt Count 257 Th/cmm (150-400) 09/17/17 07:20 MPV 7.4 fl 09/17/17 07:20 Neutrophils % 47.3 % (40.0-80.0) 09/17/17 07:20 Lymphocytes % 38.6 % (20.0-50.0) 09/17/17 07:20 Monocytes % 10.2 % (2.0-10.0) H 09/17/17 07:20 Eosinophils % 2.5 % (0.0-5.0) 09/17/17 07:20 Basophils % 1.4 % (0.0-2.0) 09/17/17 07:20 Sodium 132 mEq/L (136-145) L 09/17/17 07:20 Potassium 4.1 mEq/L (3.5-5.1) 09/17/17 07:20 Chloride 98 mEq/L (98-107) 09/17/17 07:20 Carbon Dioxide 27.6 mEq/L (21.0-31.0) 09/17/17 07:20 Anion Gap 10.5 (7.0-16.0) 09/17/17 07:20 BUN 12 mg/dL (7-25) 09/17/17 07:20 Creatinine 0.5 mg/dL (0.6-1.2) L 09/17/17 07:20 Est GFR ( Amer) TNP 09/17/17 07:20 Est GFR (Non-Af Amer) TNP 09/17/17 07:20 BUN/Creatinine Ratio 24.0 09/17/17 07:20 Glucose 98 mg/dL (70-105) 09/17/17 07:20 Hemoglobin A1c % 5.8 % (4.0-6.0) 09/14/17 19:15 Calcium 9.5 mg/dL (8.6-10.3) 09/17/17 07:20 Total Bilirubin 0.4 mg/dL (0.3-1.0) 09/14/17 19:15 AST 16 U/L (13-39) 09/14/17 19:15 ALT 11 U/L (7-52) 09/14/17 19:15 Alkaline Phosphatase 94 U/L (34-104) 09/14/17 19:15 Total Protein 8.1 gm/dL (6.0-8.3) 09/14/17 19:15 Albumin 4.4 gm/dL (3.7-5.3) 09/14/17 19:15 Globulin 3.7 gm/dL 09/14/17 19:15 Albumin/Globulin Ratio 1.2 (1.0-1.8) 09/14/17 19:15 Triglycerides 267 mg/dL (<150) H 09/14/17 19:15 Cholesterol 232 mg/dL (<200) H 09/14/17 19:15 LDL Cholesterol Direct 154 mg/dL (75-193) 09/14/17 19:15 HDL Cholesterol 52 mg/dL (23-92) 09/14/17 19:15 TSH 0.80 uIU/ml (0.34-5.60) 09/14/17 19:15 Urine Source CLEAN C 09/14/17 19:20 Urine Color YELLOW 09/14/17 19:20 Urine Clarity CLEAR (CLEAR) 09/14/17 19:20 Urine pH 5.5 (4.6 - 8.0) 09/14/17 19:20 Ur Specific [place] <= 1.005 (1.005-1.030) 09/14/17 19:20 Urine Protein NEGATIVE mg/dL (NEGATIVE) 09/14/17 19:20 Urine Glucose (UA) NEGATIVE mg/dL (NEGATIVE) 09/14/17 19:20 Urine Ketones NEGATIVE mg/dL (NEGATIVE) 09/14/17 19:20 Urine Blood NEGATIVE (NEGATIVE) 09/14/17 19:20 Urine Nitrate NEGATIVE (NEGATIVE) 09/14/17 19:20 Urine Bilirubin NEGATIVE (NEGATIVE) 09/14/17 19:20 Urine Urobilinogen 0.2 E.U./dL (0.2 - 1.0) 09/14/17 19:20 Ur Leukocyte Esterase TRACE (NEGATIVE) H 09/14/17 19:20 Urine RBC 0-2 /hpf (0-5) 09/14/17 19:20 Urine WBC 0-2 /hpf (0-5) 09/14/17 19:20 Ur Epithelial Cells OCCASIONAL /lpf (FEW) 09/14/17 19:20 Urine Bacteria NONE SEEN /hpf (NONE SEEN) 09/14/17 19:20 Valproic Acid < 10.0 ug/mL (50.0-100.0) L 10/08/17 07:30 RPR NONREACTIVE (NONREACTIVE) 09/14/17 19:15 - Physical Exam Vitals and I&O: Vital Signs Temp 98.1 F 10/15/17 06:27 Pulse 99 10/15/17 09:12 Resp 20 10/15/17 06:27 BP 143/85 10/15/17 09:12 Pulse Ox 95 10/15/17 06:27 Intake & Output 10/14/17 10/15/17 10/15/17 18:59 06:59 18:59 Intake Total 1000 Balance 1000 Intake: Oral 1000 Other: # Voids 4 # Bowel Movements 2 Stool Characteristics Soft Active Medications: Current Medications Acetaminophen (Tylenol) 650 mg PO Q4HR PRN PRN Reason: Pain or Fever >101 Stop: 11/13/17 22:40 Last Admin: 10/01/17 17:33 Dose: 650 mg Atorvastatin Calcium (Lipitor) 20 mg PO DAILY NICOLE; Protocol Stop: 11/14/17 12:44 Last Admin: 10/15/17 09:11 Dose: 20 mg Docusate Sodium (Colace) 100 mg PO BID [facility] Stop: 11/14/17 08:59 Last Admin: 10/15/17 09:12 Dose: 100 mg Levothyroxine Sodium 0.1 mg/ (Levothyroxine Sodium 0.025 mg) 0.125 mg PO QDAC [facility] Stop: 11/17/17 07:29 Last Admin: 10/15/17 06:36 Dose: 0.125 mg Lisinopril (Zestril) 20 mg PO DAILY [facility] Stop: 11/14/17 08:59 Last Admin: 10/15/17 09:11 Dose: 20 mg Metoprolol Tartrate (Lopressor) 25 mg PO DAILY [facility] Stop: 11/14/17 08:59 Last Admin: 10/15/17 09:12 Dose: 25 mg Olanzapine (Zyprexa) 5 mg PO BID [facility] Stop: 12/07/17 08:59 Last Admin: 10/15/17 09:11 Dose: 5 mg Quetiapine Fumarate (Seroquel) 100 mg PO BID [facility]; Protocol Stop: 12/13/17 16:59 Last Admin: 10/15/17 09:11 Dose: 100 mg Sodium Chloride (Nacl Tab) 1 gm PO TID [facility] Stop: 11/14/17 08:59 Last Admin: 10/15/17 09:13 Dose: 1 gm Zolpidem Tartrate (Ambien) 5 mg PO HS PRN PRN Reason: Insomnia Stop: 11/13/17 22:44 Last Admin: 10/14/17 20:32 Dose: 5 mg General: alert HEENT: NC/AT, PERRLA Neck: Supple Lungs: CTAB Cardiovascular: RRR, Normal S1, Normal S2, without murmur Abdomen: soft, non-tender, non-distended, positive bowel sound Extremities: excoriation Neurological: alert - Procedures Procedures: Procedures Procedure Code Date APPENDECTOMY ADD-ON 99246 08/04/15 BYPASS TRANSVERSE COLON TO CUTANEOUS, OPEN APPROACH [id number] 08/04/15 COLOSTOMY 69027 08/04/15 EXCISION OF LARGE INTESTINE, OPEN APPROACH [id number] 08/04/15 GROUP PSYCHOTHERAPY 56653 07/31/15 GROUP PSYCHOTHERAPY GZHZZZZ 07/31/15 GROUP PSYCHOTHERAPY 48830 04/02/15 GROUP PSYCHOTHERAPY GZHZZZZ 04/02/15 OTHER GROUP THERAPY 94.44 11/07/14 PARTIAL REMOVAL OF COLON 23420 08/04/15 RECREATIONAL THERAPY 93.81 02/21/10 RESECTION OF APPENDIX, OPEN APPROACH [id number] 08/04/15 Internal Medicine Assmt/Plan - Assessment Assessment: MRSA NARES htn hypothyroidism diverting colostomy dmenetia obesity anemia hyponatremia hyperglycemia - Plan Plan: fall precautions continue current plan of care Nutritional Asmnt/Malnutr-PDOC - Dietary Evaluation Malnutrition Findings (Please click <Entered> for more info): Nutritional Asmnt/Malnutrition Start: 09/18/17 14: 05 Text: Status: Complete Freq: Protocol: Document 09/18/17 14:06 LCJANESSAG (Rec: 09/18/17 14:22 LCJANESSAG [email or web address]) Nutritional Asmnt/Malnutrition Patient General Information Nutritional Screening Moderate Risk Diagnosis psychosis Pertinent Medical Hx/Surgical Hx HTN, thyroid disorder, cardiomegaly, hypothyroidism, rectal prolapse, femal geital prolapse, hyponatremia, schizophrenia, ptosis, schizophrenia Subjective Information Per EMR, PO intake 100% of meals. Per nurse note, pt was confused and rambling, difficult to understand her. Current Diet Order/ Nutrition Support [facility] soft ground Pertinent Medications levothyroixine, nacl Pertinent Labs 09/17 Na 132, Cr 0.5, glucose 98 09/14 Na 124, Cl 91, Cr 0.5, glucose 106, A1c 5.8 Nutritional Hx/Data Height 6 ft 3 in Height (Calculated Centimeters) 190.5 Current Weight (lbs) 149 lb Weight (Calculated Kilograms) 67.6 Weight (Calculated Grams) 80740.3 [place] Body Weight 196 Body Mass Index (BMI) 18.6 Weight Status Approriate GI Symptoms GI Symptoms None Last BM 09/16 Difficult in: None Skin Integrity/Comment: dryness, Fabrizio 19 Current %PO Good (75-100%) Estimated Nutritional Goals BEE in Kcals: Using Current wt Calories/Kcals/Kg 27-32 Kcals Calculated 4292-2422 Protein: Using Current wt Protein g/k-1.2 Protein Calculated 68-82 Fluid: ml 1836-2176ml (1ml/kcal) Nutritional Problem No current Nutrition Prob Problem N/A Malnutrition Alert Is there a minimum of two criteria No selected? Query Text:Check all the applicable criteria. A minimum of two criteria are recommended for diagnosis of either severe or non-severe malnutrition. Malnutrition Related to Morbid Obesity Malnutrition related to morbid obesity No Intervention/Recommendation Comments 1. Continue with [facility] soft ground diet as ordered. 2. Monitor PO intake, wt, labs and skin integrity 3. F/U as low risk in 7 days, 09/25 Expected Outcomes/Goals Expected Outcomes/Goals 1. PO intake to meet at least 75% of nutritional needs. 2. Wt stability, skin to remain intact, labs to approach WNL.
[2017-10-15] MEDS ORDERED: Haloperidol Lactate 5 mg/mL 1mL Vial IM ONE (12:14)
[2017-10-15] MEDS ORDERED: Haloperidol Lactate 5 mg/mL 1mL Vial ONE (12:16)
--- NOTE | 2017-10-15 22:00 | Progress Notes ---
DATE: 10/15/2017 SUBJECTIVE: Case was discussed with staff of the patient, reviewed records. The patient has been smearing her feces all over the place, throwing her diapers. She continues to be very agitated, unpredictable, impulsive, and needing redirection. She continues to have poor insight, does not seem like the Seroquel has been working for her, so I will be discontinuing the Seroquel, may be initiating her on Thorazine. Also, we will take her off the Zyprexa since it is not working. She is still rambling, psychotic, and easily agitated. PLAN: We are adding Thorazine 50 mg daily and see how she responds to it, increase the dose if needed. We will continue to work with the patient in group therapy, milieu therapy, and the adjust medication as needed. JOB# [id number]
[2017-10-16] MEDS: Atorvastatin Calcium 10 MG TAB PO SCH (08:45)
--- NOTE | 2017-10-16 14:06 | Internal Medicine Prog Note ---
Internal Medicine Subjective - Subjective Service Date: 10/16/17 Patient is:: awake, verbal, interactive Patient Complaints of:: congestion Per staff patient has:: no adverse event, no episodes of fall, poor appetite, tolerating meds Internal Medicine Objective - Results Result Diagrams: 09/17/17 07:20 09/17/17 07:20 Recent Labs: Laboratory Last Values WBC 4.3 Th/cmm (4.8-10.8) L 09/17/17 07:20 RBC 4.11 Mil/cmm (3.80-5.20) 09/17/17 07:20 Hgb 12.1 gm/dL (12-16) 09/17/17 07:20 Hct 35.1 % (41.0-60) L 09/17/17 07:20 MCV 85.3 fl (81-100) 09/17/17 07:20 MCH 29.5 pg (27.0-31.0) 09/17/17 07:20 MCHC Differential 34.6 pg (28.0-36.0) 09/17/17 07:20 RDW 12.1 % (11.5-20.0) 09/17/17 07:20 Plt Count 257 Th/cmm (150-400) 09/17/17 07:20 MPV 7.4 fl 09/17/17 07:20 Neutrophils % 47.3 % (40.0-80.0) 09/17/17 07:20 Lymphocytes % 38.6 % (20.0-50.0) 09/17/17 07:20 Monocytes % 10.2 % (2.0-10.0) H 09/17/17 07:20 Eosinophils % 2.5 % (0.0-5.0) 09/17/17 07:20 Basophils % 1.4 % (0.0-2.0) 09/17/17 07:20 Sodium 132 mEq/L (136-145) L 09/17/17 07:20 Potassium 4.1 mEq/L (3.5-5.1) 09/17/17 07:20 Chloride 98 mEq/L (98-107) 09/17/17 07:20 Carbon Dioxide 27.6 mEq/L (21.0-31.0) 09/17/17 07:20 Anion Gap 10.5 (7.0-16.0) 09/17/17 07:20 BUN 12 mg/dL (7-25) 09/17/17 07:20 Creatinine 0.5 mg/dL (0.6-1.2) L 09/17/17 07:20 Est GFR ( Amer) TNP 09/17/17 07:20 Est GFR (Non-Af Amer) TNP 09/17/17 07:20 BUN/Creatinine Ratio 24.0 09/17/17 07:20 Glucose 98 mg/dL (70-105) 09/17/17 07:20 Hemoglobin A1c % 5.8 % (4.0-6.0) 09/14/17 19:15 Calcium 9.5 mg/dL (8.6-10.3) 09/17/17 07:20 Total Bilirubin 0.4 mg/dL (0.3-1.0) 09/14/17 19:15 AST 16 U/L (13-39) 09/14/17 19:15 ALT 11 U/L (7-52) 09/14/17 19:15 Alkaline Phosphatase 94 U/L (34-104) 09/14/17 19:15 Total Protein 8.1 gm/dL (6.0-8.3) 09/14/17 19:15 Albumin 4.4 gm/dL (3.7-5.3) 09/14/17 19:15 Globulin 3.7 gm/dL 09/14/17 19:15 Albumin/Globulin Ratio 1.2 (1.0-1.8) 09/14/17 19:15 Triglycerides 267 mg/dL (<150) H 09/14/17 19:15 Cholesterol 232 mg/dL (<200) H 09/14/17 19:15 LDL Cholesterol Direct 154 mg/dL (75-193) 09/14/17 19:15 HDL Cholesterol 52 mg/dL (23-92) 09/14/17 19:15 TSH 0.80 uIU/ml (0.34-5.60) 09/14/17 19:15 Urine Source CLEAN C 09/14/17 19:20 Urine Color YELLOW 09/14/17 19:20 Urine Clarity CLEAR (CLEAR) 09/14/17 19:20 Urine pH 5.5 (4.6 - 8.0) 09/14/17 19:20 Ur Specific [place] <= 1.005 (1.005-1.030) 09/14/17 19:20 Urine Protein NEGATIVE mg/dL (NEGATIVE) 09/14/17 19:20 Urine Glucose (UA) NEGATIVE mg/dL (NEGATIVE) 09/14/17 19:20 Urine Ketones NEGATIVE mg/dL (NEGATIVE) 09/14/17 19:20 Urine Blood NEGATIVE (NEGATIVE) 09/14/17 19:20 Urine Nitrate NEGATIVE (NEGATIVE) 09/14/17 19:20 Urine Bilirubin NEGATIVE (NEGATIVE) 09/14/17 19:20 Urine Urobilinogen 0.2 E.U./dL (0.2 - 1.0) 09/14/17 19:20 Ur Leukocyte Esterase TRACE (NEGATIVE) H 09/14/17 19:20 Urine RBC 0-2 /hpf (0-5) 09/14/17 19:20 Urine WBC 0-2 /hpf (0-5) 09/14/17 19:20 Ur Epithelial Cells OCCASIONAL /lpf (FEW) 09/14/17 19:20 Urine Bacteria NONE SEEN /hpf (NONE SEEN) 09/14/17 19:20 Valproic Acid < 10.0 ug/mL (50.0-100.0) L 10/08/17 07:30 RPR NONREACTIVE (NONREACTIVE) 09/14/17 19:15 - Physical Exam Vitals and I&O: Vital Signs Temp 98.8 F 10/16/17 06:23 Pulse 81 10/16/17 08:45 Resp 19 10/16/17 06:23 BP 162/86 10/16/17 08:45 Pulse Ox 95 10/16/17 06:23 Intake & Output 10/15/17 10/16/17 10/16/17 18:59 06:59 18:59 Intake Total 1200 180 Balance 1200 180 Weight (lbs) 149 lb Intake: Oral 1200 180 Other: # Voids 4 3 # Bowel Movements 3 Weight Source Bedscale Active Medications: Current Medications Acetaminophen (Tylenol) 650 mg PO Q4HR PRN PRN Reason: Pain or Fever >101 Stop: 11/13/17 22:40 Last Admin: 10/01/17 17:33 Dose: 650 mg Atorvastatin Calcium (Lipitor) 20 mg PO DAILY NICOLE; Protocol Stop: 11/14/17 12:44 Last Admin: 10/16/17 08:45 Dose: 20 mg Chlorpromazine (Thorazine) 50 mg PO BID [facility]; Protocol Stop: 12/15/17 16:59 Docusate Sodium (Colace) 100 mg PO BID [facility] Stop: 11/14/17 08:59 Last Admin: 10/16/17 08:45 Dose: 100 mg Levothyroxine Sodium 0.1 mg/ (Levothyroxine Sodium 0.025 mg) 0.125 mg PO QDAC [facility] Stop: 11/17/17 07:29 Last Admin: 10/16/17 06:30 Dose: 0.125 mg Lisinopril (Zestril) 20 mg PO DAILY [facility] Stop: 11/14/17 08:59 Last Admin: 10/16/17 08:44 Dose: 20 mg Metoprolol Tartrate (Lopressor) 25 mg PO DAILY [facility] Stop: 11/14/17 08:59 Last Admin: 10/16/17 08:45 Dose: 25 mg Sodium Chloride (Nacl Tab) 1 gm PO TID [facility] Stop: 11/14/17 08:59 Last Admin: 10/16/17 08:45 Dose: 1 gm Zolpidem Tartrate (Ambien) 5 mg PO HS PRN PRN Reason: Insomnia Stop: 11/13/17 22:44 Last Admin: 10/15/17 20:47 Dose: 5 mg General: alert HEENT: NC/AT, PERRLA Neck: Supple Lungs: CTAB Cardiovascular: RRR, Normal S1, Normal S2, without murmur Abdomen: soft, non-tender, non-distended, positive bowel sound Extremities: excoriation Neurological: alert - Procedures Procedures: Procedures Procedure Code Date APPENDECTOMY ADD-ON 13089 08/04/15 BYPASS TRANSVERSE COLON TO CUTANEOUS, OPEN APPROACH [id number] 08/04/15 COLOSTOMY 54854 08/04/15 EXCISION OF LARGE INTESTINE, OPEN APPROACH [id number] 08/04/15 GROUP PSYCHOTHERAPY 07115 07/31/15 GROUP PSYCHOTHERAPY GZHZZZZ 07/31/15 GROUP PSYCHOTHERAPY 94298 04/02/15 GROUP PSYCHOTHERAPY GZHZZZZ 04/02/15 OTHER GROUP THERAPY 94.44 11/07/14 PARTIAL REMOVAL OF COLON 57708 08/04/15 RECREATIONAL THERAPY 93.81 02/21/10 RESECTION OF APPENDIX, OPEN APPROACH [id number] 08/04/15 Internal Medicine Assmt/Plan - Assessment Assessment: MRSA NARES htn hypothyroidism diverting colostomy dmenetia obesity anemia hyponatremia hyperglycemia - Plan Plan: fall precautions continue current plan of care Nutritional Asmnt/Malnutr-PDOC - Dietary Evaluation Malnutrition Findings (Please click <Entered> for more info): Nutritional Asmnt/Malnutrition Start: 09/18/17 14: 05 Text: Status: Complete Freq: Protocol: Document 09/18/17 14:06 LCJANESSAG (Rec: 09/18/17 14:22 [email or web address] Nutritional Asmnt/Malnutrition Patient General Information Nutritional Screening Moderate Risk Diagnosis psychosis Pertinent Medical Hx/Surgical Hx HTN, thyroid disorder, cardiomegaly, hypothyroidism, rectal prolapse, femal geital prolapse, hyponatremia, schizophrenia, ptosis, schizophrenia Subjective Information Per EMR, PO intake 100% of meals. Per nurse note, pt was confused and rambling, difficult to understand her. Current Diet Order/ Nutrition Support [facility] soft ground Pertinent Medications levothyroixine, nacl Pertinent Labs 09/17 Na 132, Cr 0.5, glucose 98 09/14 Na 124, Cl 91, Cr 0.5, glucose 106, A1c 5.8 Nutritional Hx/Data Height 6 ft 3 in Height (Calculated Centimeters) 190.5 Current Weight (lbs) 149 lb Weight (Calculated Kilograms) 67.6 Weight (Calculated Grams) 58654.3 [place] Body Weight 196 Body Mass Index (BMI) 18.6 Weight Status Approriate GI Symptoms GI Symptoms None Last BM 09/16 Difficult in: None Skin Integrity/Comment: dryness, Fabrizio 19 Current %PO Good (75-100%) Estimated Nutritional Goals BEE in Kcals: Using Current wt Calories/Kcals/Kg 27-32 Kcals Calculated 1468-1744 Protein: Using Current wt Protein g/k-1.2 Protein Calculated 68-82 Fluid: ml 1836-2176ml (1ml/kcal) Nutritional Problem No current Nutrition Prob Problem N/A Malnutrition Alert Is there a minimum of two criteria No selected? Query Text:Check all the applicable criteria. A minimum of two criteria are recommended for diagnosis of either severe or non-severe malnutrition. Malnutrition Related to Morbid Obesity Malnutrition related to morbid obesity No Intervention/Recommendation Comments 1. Continue with [facility] soft ground diet as ordered. 2. Monitor PO intake, wt, labs and skin integrity 3. F/U as low risk in 7 days, 09/25 Expected Outcomes/Goals Expected Outcomes/Goals 1. PO intake to meet at least 75% of nutritional needs. 2. Wt stability, skin to remain intact, labs to approach WNL.
--- NOTE | 2017-10-16 21:03 | Progress Notes ---
DATE: 10/16/2017 SUBJECTIVE: Case was discussed with staff of the patient and reviewed records. The patient so far was started on Thorazine yesterday because she is doing well on the Seroquel or the Zyprexa. Today, she is still doing more or less the same though she is a bit easier to redirect. She is sleeping better, eating better, continues to have episodes of agitation and irritability. She is still consider unpredictable, impulsive, needing redirection. I will be increasing the Thorazine dose to 50 mg twice a day and so far no side effects, no sedation, no nausea, no extrapyramidal symptoms. I will continue to work with the patient in group therapy, milieu therapy, and adjust the medications as needed. JOB# [id number]
[2017-10-17] MEDS: Atorvastatin Calcium 10 MG TAB PO SCH (09:25)
--- NOTE | 2017-10-17 13:14 | Internal Medicine Prog Note ---
Internal Medicine Subjective - Subjective Service Date: 10/17/17 Patient is:: awake, verbal, interactive Patient Complaints of:: congestion Per staff patient has:: no adverse event, no episodes of fall, poor appetite, tolerating meds Internal Medicine Objective - Results Result Diagrams: 09/17/17 07:20 09/17/17 07:20 Recent Labs: Laboratory Last Values WBC 4.3 Th/cmm (4.8-10.8) L 09/17/17 07:20 RBC 4.11 Mil/cmm (3.80-5.20) 09/17/17 07:20 Hgb 12.1 gm/dL (12-16) 09/17/17 07:20 Hct 35.1 % (41.0-60) L 09/17/17 07:20 MCV 85.3 fl (81-100) 09/17/17 07:20 MCH 29.5 pg (27.0-31.0) 09/17/17 07:20 MCHC Differential 34.6 pg (28.0-36.0) 09/17/17 07:20 RDW 12.1 % (11.5-20.0) 09/17/17 07:20 Plt Count 257 Th/cmm (150-400) 09/17/17 07:20 MPV 7.4 fl 09/17/17 07:20 Neutrophils % 47.3 % (40.0-80.0) 09/17/17 07:20 Lymphocytes % 38.6 % (20.0-50.0) 09/17/17 07:20 Monocytes % 10.2 % (2.0-10.0) H 09/17/17 07:20 Eosinophils % 2.5 % (0.0-5.0) 09/17/17 07:20 Basophils % 1.4 % (0.0-2.0) 09/17/17 07:20 Sodium 132 mEq/L (136-145) L 09/17/17 07:20 Potassium 4.1 mEq/L (3.5-5.1) 09/17/17 07:20 Chloride 98 mEq/L (98-107) 09/17/17 07:20 Carbon Dioxide 27.6 mEq/L (21.0-31.0) 09/17/17 07:20 Anion Gap 10.5 (7.0-16.0) 09/17/17 07:20 BUN 12 mg/dL (7-25) 09/17/17 07:20 Creatinine 0.5 mg/dL (0.6-1.2) L 09/17/17 07:20 Est GFR ( Amer) TNP 09/17/17 07:20 Est GFR (Non-Af Amer) TNP 09/17/17 07:20 BUN/Creatinine Ratio 24.0 09/17/17 07:20 Glucose 98 mg/dL (70-105) 09/17/17 07:20 Hemoglobin A1c % 5.8 % (4.0-6.0) 09/14/17 19:15 Calcium 9.5 mg/dL (8.6-10.3) 09/17/17 07:20 Total Bilirubin 0.4 mg/dL (0.3-1.0) 09/14/17 19:15 AST 16 U/L (13-39) 09/14/17 19:15 ALT 11 U/L (7-52) 09/14/17 19:15 Alkaline Phosphatase 94 U/L (34-104) 09/14/17 19:15 Total Protein 8.1 gm/dL (6.0-8.3) 09/14/17 19:15 Albumin 4.4 gm/dL (3.7-5.3) 09/14/17 19:15 Globulin 3.7 gm/dL 09/14/17 19:15 Albumin/Globulin Ratio 1.2 (1.0-1.8) 09/14/17 19:15 Triglycerides 267 mg/dL (<150) H 09/14/17 19:15 Cholesterol 232 mg/dL (<200) H 09/14/17 19:15 LDL Cholesterol Direct 154 mg/dL (75-193) 09/14/17 19:15 HDL Cholesterol 52 mg/dL (23-92) 09/14/17 19:15 TSH 0.80 uIU/ml (0.34-5.60) 09/14/17 19:15 Urine Source CLEAN C 09/14/17 19:20 Urine Color YELLOW 09/14/17 19:20 Urine Clarity CLEAR (CLEAR) 09/14/17 19:20 Urine pH 5.5 (4.6 - 8.0) 09/14/17 19:20 Ur Specific [place] <= 1.005 (1.005-1.030) 09/14/17 19:20 Urine Protein NEGATIVE mg/dL (NEGATIVE) 09/14/17 19:20 Urine Glucose (UA) NEGATIVE mg/dL (NEGATIVE) 09/14/17 19:20 Urine Ketones NEGATIVE mg/dL (NEGATIVE) 09/14/17 19:20 Urine Blood NEGATIVE (NEGATIVE) 09/14/17 19:20 Urine Nitrate NEGATIVE (NEGATIVE) 09/14/17 19:20 Urine Bilirubin NEGATIVE (NEGATIVE) 09/14/17 19:20 Urine Urobilinogen 0.2 E.U./dL (0.2 - 1.0) 09/14/17 19:20 Ur Leukocyte Esterase TRACE (NEGATIVE) H 09/14/17 19:20 Urine RBC 0-2 /hpf (0-5) 09/14/17 19:20 Urine WBC 0-2 /hpf (0-5) 09/14/17 19:20 Ur Epithelial Cells OCCASIONAL /lpf (FEW) 09/14/17 19:20 Urine Bacteria NONE SEEN /hpf (NONE SEEN) 09/14/17 19:20 Valproic Acid < 10.0 ug/mL (50.0-100.0) L 10/08/17 07:30 RPR NONREACTIVE (NONREACTIVE) 09/14/17 19:15 - Physical Exam Vitals and I&O: Vital Signs Temp 98.5 F 10/17/17 06:29 Pulse 92 10/17/17 09:28 Resp 19 10/17/17 06:29 BP 152/87 10/17/17 09:28 Pulse Ox 96 10/17/17 06:29 Intake & Output 10/16/17 10/17/17 10/17/17 18:59 06:59 18:59 Intake Total 1500 420 Balance 1500 420 Intake: Oral 1500 420 Other: # Voids 4 2 # Bowel Movements 1 Active Medications: Current Medications Acetaminophen (Tylenol) 650 mg PO Q4HR PRN PRN Reason: Pain or Fever >101 Stop: 11/13/17 22:40 Last Admin: 10/01/17 17:33 Dose: 650 mg Atorvastatin Calcium (Lipitor) 20 mg PO DAILY [facility]; Protocol Stop: 11/14/17 12:44 Last Admin: 10/17/17 09:25 Dose: 20 mg Chlorpromazine (Thorazine) 50 mg PO BID [facility]; Protocol Stop: 12/15/17 16:59 Last Admin: 10/17/17 09:26 Dose: 50 mg Docusate Sodium (Colace) 100 mg PO BID [facility] Stop: 11/14/17 08:59 Last Admin: 10/17/17 09:27 Dose: Not Given Levothyroxine Sodium 0.1 mg/ (Levothyroxine Sodium 0.025 mg) 0.125 mg PO QDAC [facility] Stop: 11/17/17 07:29 Last Admin: 10/17/17 06:31 Dose: 0.125 mg Lisinopril (Zestril) 20 mg PO DAILY [facility] Stop: 11/14/17 08:59 Last Admin: 10/17/17 09:27 Dose: 20 mg Metoprolol Tartrate (Lopressor) 25 mg PO DAILY [facility] Stop: 11/14/17 08:59 Last Admin: 10/17/17 09:28 Dose: 25 mg Sodium Chloride (Nacl Tab) 1 gm PO TID [facility] Stop: 11/14/17 08:59 Last Admin: 10/17/17 09:29 Dose: 1 gm Zolpidem Tartrate (Ambien) 5 mg PO HS PRN PRN Reason: Insomnia Stop: 11/13/17 22:44 Last Admin: 10/16/17 21:25 Dose: 5 mg General: alert HEENT: NC/AT, PERRLA Neck: Supple Lungs: CTAB Cardiovascular: RRR, Normal S1, Normal S2, without murmur Abdomen: soft, non-tender, non-distended, positive bowel sound Extremities: excoriation Neurological: alert - Procedures Procedures: Procedures Procedure Code Date APPENDECTOMY ADD-ON 26536 08/04/15 BYPASS TRANSVERSE COLON TO CUTANEOUS, OPEN APPROACH [id number] 08/04/15 COLOSTOMY 09068 08/04/15 EXCISION OF LARGE INTESTINE, OPEN APPROACH [id number] 08/04/15 GROUP PSYCHOTHERAPY 39205 07/31/15 GROUP PSYCHOTHERAPY GZHZZZZ 07/31/15 GROUP PSYCHOTHERAPY 60057 04/02/15 GROUP PSYCHOTHERAPY GZHZZZZ 04/02/15 OTHER GROUP THERAPY 94.44 11/07/14 PARTIAL REMOVAL OF COLON 90098 08/04/15 RECREATIONAL THERAPY 93.81 02/21/10 RESECTION OF APPENDIX, OPEN APPROACH [id number] 08/04/15 Internal Medicine Assmt/Plan - Assessment Assessment: MRSA NARES htn hypothyroidism diverting colostomy dmenetia obesity anemia hyponatremia hyperglycemia - Plan Plan: fall precautions continue current plan of care Nutritional Asmnt/Malnutr-PDOC - Dietary Evaluation Malnutrition Findings (Please click <Entered> for more info): Nutritional Asmnt/Malnutrition Start: 09/18/17 14: 05 Text: Status: Complete Freq: Protocol: Document 09/18/17 14:06 JANESSA (Rec: 09/18/17 14:22 [facility] [email or web address]) Nutritional Asmnt/Malnutrition Patient General Information Nutritional Screening Moderate Risk Diagnosis psychosis Pertinent Medical Hx/Surgical Hx HTN, thyroid disorder, cardiomegaly, hypothyroidism, rectal prolapse, femal geital prolapse, hyponatremia, schizophrenia, ptosis, schizophrenia Subjective Information Per EMR, PO intake 100% of meals. Per nurse note, pt was confused and rambling, difficult to understand her. Current Diet Order/ Nutrition Support mech soft ground Pertinent Medications levothyroixine, nacl Pertinent Labs 09/17 Na 132, Cr 0.5, glucose 98 09/14 Na 124, Cl 91, Cr 0.5, glucose 106, A1c 5.8 Nutritional Hx/Data Height 6 ft 3 in Height (Calculated Centimeters) 190.5 Current Weight (lbs) 149 lb Weight (Calculated Kilograms) 67.6 Weight (Calculated Grams) 72732.3 [place] Body Weight 196 Body Mass Index (BMI) 18.6 Weight Status Approriate GI Symptoms GI Symptoms None Last BM 09/16 Difficult in: None Skin Integrity/Comment: dryness, Fabrizio 19 Current %PO Good (75-100%) Estimated Nutritional Goals BEE in Kcals: Using Current wt Calories/Kcals/Kg 27-32 Kcals Calculated 9093-0529 Protein: Using Current wt Protein g/k-1.2 Protein Calculated 68-82 Fluid: ml 1836-2176ml (1ml/kcal) Nutritional Problem No current Nutrition Prob Problem N/A Malnutrition Alert Is there a minimum of two criteria No selected? Query Text:Check all the applicable criteria. A minimum of two criteria are recommended for diagnosis of either severe or non-severe malnutrition. Malnutrition Related to Morbid Obesity Malnutrition related to morbid obesity No Intervention/Recommendation Comments 1. Continue with mec soft ground diet as ordered. 2. Monitor PO intake, wt, labs and skin integrity 3. F/U as low risk in 7 days, 09/25 Expected Outcomes/Goals Expected Outcomes/Goals 1. PO intake to meet at least 75% of nutritional needs. 2. Wt stability, skin to remain intact, labs to approach WNL.
--- NOTE | 2017-10-17 22:46 | Progress Notes ---
DATE: 10/17/2017 Case was discussed with staff of the patient, reviewed records. The patient continues to expose herself, throwing feces, urinating on the floor, acting out. She is rambling, is very hard to understand her. She is still not ready to go to a lesser level of care because of her behavior. I increased her Thorazine dose yesterday to 100 mg twice a day and she is a bit calmer today. No side effects with the medication, no sedation, no nausea, no extrapyramidal symptoms. We will continue the patient in group therapy, milieu therapy, and adjust the medications as needed. JOB# [id number]
[2017-10-18] MEDS: Atorvastatin Calcium 10 MG TAB PO SCH (08:52)
--- NOTE | 2017-10-18 15:11 | Internal Medicine Prog Note ---
Internal Medicine Subjective - Subjective Service Date: 10/18/17 Patient is:: awake, verbal, interactive Patient Complaints of:: congestion Per staff patient has:: no adverse event, no episodes of fall, poor appetite, tolerating meds Internal Medicine Objective - Results Result Diagrams: 09/17/17 07:20 09/17/17 07:20 Recent Labs: Laboratory Last Values WBC 4.3 Th/cmm (4.8-10.8) L 09/17/17 07:20 RBC 4.11 Mil/cmm (3.80-5.20) 09/17/17 07:20 Hgb 12.1 gm/dL (12-16) 09/17/17 07:20 Hct 35.1 % (41.0-60) L 09/17/17 07:20 MCV 85.3 fl (81-100) 09/17/17 07:20 MCH 29.5 pg (27.0-31.0) 09/17/17 07:20 MCHC Differential 34.6 pg (28.0-36.0) 09/17/17 07:20 RDW 12.1 % (11.5-20.0) 09/17/17 07:20 Plt Count 257 Th/cmm (150-400) 09/17/17 07:20 MPV 7.4 fl 09/17/17 07:20 Neutrophils % 47.3 % (40.0-80.0) 09/17/17 07:20 Lymphocytes % 38.6 % (20.0-50.0) 09/17/17 07:20 Monocytes % 10.2 % (2.0-10.0) H 09/17/17 07:20 Eosinophils % 2.5 % (0.0-5.0) 09/17/17 07:20 Basophils % 1.4 % (0.0-2.0) 09/17/17 07:20 Sodium 132 mEq/L (136-145) L 09/17/17 07:20 Potassium 4.1 mEq/L (3.5-5.1) 09/17/17 07:20 Chloride 98 mEq/L (98-107) 09/17/17 07:20 Carbon Dioxide 27.6 mEq/L (21.0-31.0) 09/17/17 07:20 Anion Gap 10.5 (7.0-16.0) 09/17/17 07:20 BUN 12 mg/dL (7-25) 09/17/17 07:20 Creatinine 0.5 mg/dL (0.6-1.2) L 09/17/17 07:20 Est GFR ( Amer) TNP 09/17/17 07:20 Est GFR (Non-Af Amer) TNP 09/17/17 07:20 BUN/Creatinine Ratio 24.0 09/17/17 07:20 Glucose 98 mg/dL (70-105) 09/17/17 07:20 Hemoglobin A1c % 5.8 % (4.0-6.0) 09/14/17 19:15 Calcium 9.5 mg/dL (8.6-10.3) 09/17/17 07:20 Total Bilirubin 0.4 mg/dL (0.3-1.0) 09/14/17 19:15 AST 16 U/L (13-39) 09/14/17 19:15 ALT 11 U/L (7-52) 09/14/17 19:15 Alkaline Phosphatase 94 U/L (34-104) 09/14/17 19:15 Total Protein 8.1 gm/dL (6.0-8.3) 09/14/17 19:15 Albumin 4.4 gm/dL (3.7-5.3) 09/14/17 19:15 Globulin 3.7 gm/dL 09/14/17 19:15 Albumin/Globulin Ratio 1.2 (1.0-1.8) 09/14/17 19:15 Triglycerides 267 mg/dL (<150) H 09/14/17 19:15 Cholesterol 232 mg/dL (<200) H 09/14/17 19:15 LDL Cholesterol Direct 154 mg/dL (75-193) 09/14/17 19:15 HDL Cholesterol 52 mg/dL (23-92) 09/14/17 19:15 TSH 0.80 uIU/ml (0.34-5.60) 09/14/17 19:15 Urine Source CLEAN C 09/14/17 19:20 Urine Color YELLOW 09/14/17 19:20 Urine Clarity CLEAR (CLEAR) 09/14/17 19:20 Urine pH 5.5 (4.6 - 8.0) 09/14/17 19:20 Ur Specific [place] <= 1.005 (1.005-1.030) 09/14/17 19:20 Urine Protein NEGATIVE mg/dL (NEGATIVE) 09/14/17 19:20 Urine Glucose (UA) NEGATIVE mg/dL (NEGATIVE) 09/14/17 19:20 Urine Ketones NEGATIVE mg/dL (NEGATIVE) 09/14/17 19:20 Urine Blood NEGATIVE (NEGATIVE) 09/14/17 19:20 Urine Nitrate NEGATIVE (NEGATIVE) 09/14/17 19:20 Urine Bilirubin NEGATIVE (NEGATIVE) 09/14/17 19:20 Urine Urobilinogen 0.2 E.U./dL (0.2 - 1.0) 09/14/17 19:20 Ur Leukocyte Esterase TRACE (NEGATIVE) H 09/14/17 19:20 Urine RBC 0-2 /hpf (0-5) 09/14/17 19:20 Urine WBC 0-2 /hpf (0-5) 09/14/17 19:20 Ur Epithelial Cells OCCASIONAL /lpf (FEW) 09/14/17 19:20 Urine Bacteria NONE SEEN /hpf (NONE SEEN) 09/14/17 19:20 Valproic Acid < 10.0 ug/mL (50.0-100.0) L 10/08/17 07:30 RPR NONREACTIVE (NONREACTIVE) 09/14/17 19:15 - Physical Exam Vitals and I&O: Vital Signs Temp 98 F 10/18/17 06:16 Pulse 94 10/18/17 08:54 Resp 20 10/18/17 06:16 BP 157/87 10/18/17 08:54 Pulse Ox 95 10/18/17 06:16 Intake & Output 10/17/17 10/18/17 10/18/17 18:59 06:59 18:59 Intake Total 120 Balance 120 Weight (lbs) 149 lb Intake: Oral 120 Other: # Voids 3 # Bowel Movements 1 Weight Source Bedscale Active Medications: Current Medications Acetaminophen (Tylenol) 650 mg PO Q4HR PRN PRN Reason: Pain or Fever >101 Stop: 11/13/17 22:40 Last Admin: 10/17/17 21:32 Dose: 650 mg Atorvastatin Calcium (Lipitor) 20 mg PO DAILY [facility]; Protocol Stop: 11/14/17 12:44 Last Admin: 08/01/18 08:52 Dose: 20 mg Chlorpromazine (Thorazine) 50 mg PO BID [facility]; Protocol Stop: 12/15/17 16:59 Last Admin: 10/18/17 08:53 Dose: 50 mg Docusate Sodium (Colace) 100 mg PO BID [facility] Stop: 11/14/17 08:59 Last Admin: 10/18/17 08:52 Dose: Not Given Levothyroxine Sodium 0.1 mg/ (Levothyroxine Sodium 0.025 mg) 0.125 mg PO QDAC [facility] Stop: 11/17/17 07:29 Last Admin: 10/18/17 06:42 Dose: 0.125 mg Lisinopril (Zestril) 20 mg PO DAILY [facility] Stop: 11/14/17 08:59 Last Admin: 10/18/17 08:54 Dose: 20 mg Metoprolol Tartrate (Lopressor) 25 mg PO DAILY [facility] Stop: 11/14/17 08:59 Last Admin: 10/18/17 08:54 Dose: 25 mg Sodium Chloride (Nacl Tab) 1 gm PO TID [facility] Stop: 11/14/17 08:59 Last Admin: 10/18/17 13:02 Dose: 1 gm Zolpidem Tartrate (Ambien) 5 mg PO HS PRN PRN Reason: Insomnia Stop: 11/13/17 22:44 Last Admin: 10/17/17 21:27 Dose: 5 mg General: alert HEENT: NC/AT, PERRLA Neck: Supple Lungs: CTAB Cardiovascular: RRR, Normal S1, Normal S2, without murmur Abdomen: soft, non-tender, non-distended, positive bowel sound Extremities: excoriation Neurological: alert - Procedures Procedures: Procedures Procedure Code Date APPENDECTOMY ADD-ON 63757 08/04/15 BYPASS TRANSVERSE COLON TO CUTANEOUS, OPEN APPROACH [id number] 08/04/15 COLOSTOMY 36815 08/04/15 EXCISION OF LARGE INTESTINE, OPEN APPROACH [id number] 08/04/15 GROUP PSYCHOTHERAPY 21832 07/31/15 GROUP PSYCHOTHERAPY GZHZZZZ 07/31/15 GROUP PSYCHOTHERAPY 93183 04/02/15 GROUP PSYCHOTHERAPY GZHZZZZ 04/02/15 OTHER GROUP THERAPY 94.44 11/07/14 PARTIAL REMOVAL OF COLON 49292 08/04/15 RECREATIONAL THERAPY 93.81 02/21/10 RESECTION OF APPENDIX, OPEN APPROACH [id number] 08/04/15 Internal Medicine Assmt/Plan - Assessment Assessment: MRSA NARES htn hypothyroidism diverting colostomy dmenetia obesity anemia hyponatremia hyperglycemia - Plan Plan: fall precautions continue current plan of care Nutritional Asmnt/Malnutr-PDOC - Dietary Evaluation Malnutrition Findings (Please click <Entered> for more info): Nutritional Asmnt/Malnutrition Start: 09/18/17 14: 05 Text: Status: Complete Freq: Protocol: Document 09/18/17 14:06 [facility] (Rec: 09/18/17 14:22 [email or web address]) Nutritional Asmnt/Malnutrition Patient General Information Nutritional Screening Moderate Risk Diagnosis psychosis Pertinent Medical Hx/Surgical Hx HTN, thyroid disorder, cardiomegaly, hypothyroidism, rectal prolapse, femal geital prolapse, hyponatremia, schizophrenia, ptosis, schizophrenia Subjective Information Per EMR, PO intake 100% of meals. Per nurse note, pt was confused and rambling, difficult to understand her. Current Diet Order/ Nutrition Support mec soft ground Pertinent Medications levothyroixine, nacl Pertinent Labs 09/17 Na 132, Cr 0.5, glucose 98 09/14 Na 124, Cl 91, Cr 0.5, glucose 106, A1c 5.8 Nutritional Hx/Data Height 6 ft 3 in Height (Calculated Centimeters) 190.5 Current Weight (lbs) 149 lb Weight (Calculated Kilograms) 67.6 Weight (Calculated Grams) 04623.3 [place] Body Weight 196 Body Mass Index (BMI) 18.6 Weight Status Approriate GI Symptoms GI Symptoms None Last BM 09/16 Difficult in: None Skin Integrity/Comment: bimal, Fabrizio 19 Current %PO Good (75-100%) Estimated Nutritional Goals BEE in Kcals: Using Current wt Calories/Kcals/Kg 27-32 Kcals Calculated 2237-8839 Protein: Using Current wt Protein g/k-1.2 Protein Calculated 68-82 Fluid: ml 1836-2176ml (1ml/kcal) Nutritional Problem No current Nutrition Prob Problem N/A Malnutrition Alert Is there a minimum of two criteria No selected? Query Text:Check all the applicable criteria. A minimum of two criteria are recommended for diagnosis of either severe or non-severe malnutrition. Malnutrition Related to Morbid Obesity Malnutrition related to morbid obesity No Intervention/Recommendation Comments 1. Continue with [facility] soft ground diet as ordered. 2. Monitor PO intake, wt, labs and skin integrity 3. F/U as low risk in 7 days, 09/25 Expected Outcomes/Goals Expected Outcomes/Goals 1. PO intake to meet at least 75% of nutritional needs. 2. Wt stability, skin to remain intact, labs to approach WNL.
--- NOTE | 2017-10-18 21:19 | Progress Notes ---
DATE: 10/18/2017 SUBJECTIVE: Case was discussed with staff of the patient, ____ goes. The patient continues to be acting out. The patient, today she was holding a piece of paper towel and she had blood on it. She continues to spread feces. Continues to be unpredictable and impulsive. However, she is responding better to redirection. She has not been needing any emergency medication in the last day or two. No side effects with the medication, no sedation, no nausea, no extrapyramidal symptoms. She tolerated the increase in Thorazine with no side effects and we will continue the patient in group therapy, milieu therapy, adjust medication as needed. JOB# [id number]
[2017-10-19] MEDS: Atorvastatin Calcium 10 MG TAB PO SCH (09:21)
--- NOTE | 2017-10-19 14:38 | Internal Medicine Prog Note ---
Internal Medicine Subjective - Subjective Patient seen and examined:: with staff, chart reviewed Patient is:: awake, verbal, interactive Patient Complaints of:: congestion Per staff patient has:: no adverse event, no episodes of fall, poor appetite, tolerating meds Internal Medicine Objective - Results Result Diagrams: 09/17/17 07:20 09/17/17 07:20 Recent Labs: Laboratory Last Values WBC 4.3 Th/cmm (4.8-10.8) L 09/17/17 07:20 RBC 4.11 Mil/cmm (3.80-5.20) 09/17/17 07:20 Hgb 12.1 gm/dL (12-16) 09/17/17 07:20 Hct 35.1 % (41.0-60) L 09/17/17 07:20 MCV 85.3 fl (81-100) 09/17/17 07:20 MCH 29.5 pg (27.0-31.0) 09/17/17 07:20 MCHC Differential 34.6 pg (28.0-36.0) 09/17/17 07:20 RDW 12.1 % (11.5-20.0) 09/17/17 07:20 Plt Count 257 Th/cmm (150-400) 09/17/17 07:20 MPV 7.4 fl 09/17/17 07:20 Neutrophils % 47.3 % (40.0-80.0) 09/17/17 07:20 Lymphocytes % 38.6 % (20.0-50.0) 09/17/17 07:20 Monocytes % 10.2 % (2.0-10.0) H 09/17/17 07:20 Eosinophils % 2.5 % (0.0-5.0) 09/17/17 07:20 Basophils % 1.4 % (0.0-2.0) 09/17/17 07:20 Sodium 132 mEq/L (136-145) L 09/17/17 07:20 Potassium 4.1 mEq/L (3.5-5.1) 09/17/17 07:20 Chloride 98 mEq/L (98-107) 09/17/17 07:20 Carbon Dioxide 27.6 mEq/L (21.0-31.0) 09/17/17 07:20 Anion Gap 10.5 (7.0-16.0) 09/17/17 07:20 BUN 12 mg/dL (7-25) 09/17/17 07:20 Creatinine 0.5 mg/dL (0.6-1.2) L 09/17/17 07:20 Est GFR ( Amer) TNP 09/17/17 07:20 Est GFR (Non-Af Amer) TNP 09/17/17 07:20 BUN/Creatinine Ratio 24.0 09/17/17 07:20 Glucose 98 mg/dL (70-105) 09/17/17 07:20 Hemoglobin A1c % 5.8 % (4.0-6.0) 09/14/17 19:15 Calcium 9.5 mg/dL (8.6-10.3) 09/17/17 07:20 Total Bilirubin 0.4 mg/dL (0.3-1.0) 09/14/17 19:15 AST 16 U/L (13-39) 09/14/17 19:15 ALT 11 U/L (7-52) 09/14/17 19:15 Alkaline Phosphatase 94 U/L (34-104) 09/14/17 19:15 Total Protein 8.1 gm/dL (6.0-8.3) 09/14/17 19:15 Albumin 4.4 gm/dL (3.7-5.3) 09/14/17 19:15 Globulin 3.7 gm/dL 09/14/17 19:15 Albumin/Globulin Ratio 1.2 (1.0-1.8) 09/14/17 19:15 Triglycerides 267 mg/dL (<150) H 09/14/17 19:15 Cholesterol 232 mg/dL (<200) H 09/14/17 19:15 LDL Cholesterol Direct 154 mg/dL (75-193) 09/14/17 19:15 HDL Cholesterol 52 mg/dL (23-92) 09/14/17 19:15 TSH 0.80 uIU/ml (0.34-5.60) 09/14/17 19:15 Urine Source CLEAN C 09/14/17 19:20 Urine Color YELLOW 09/14/17 19:20 Urine Clarity CLEAR (CLEAR) 09/14/17 19:20 Urine pH 5.5 (4.6 - 8.0) 09/14/17 19:20 Ur Specific [place] <= 1.005 (1.005-1.030) 09/14/17 19:20 Urine Protein NEGATIVE mg/dL (NEGATIVE) 09/14/17 19:20 Urine Glucose (UA) NEGATIVE mg/dL (NEGATIVE) 09/14/17 19:20 Urine Ketones NEGATIVE mg/dL (NEGATIVE) 09/14/17 19:20 Urine Blood NEGATIVE (NEGATIVE) 09/14/17 19:20 Urine Nitrate NEGATIVE (NEGATIVE) 09/14/17 19:20 Urine Bilirubin NEGATIVE (NEGATIVE) 09/14/17 19:20 Urine Urobilinogen 0.2 E.U./dL (0.2 - 1.0) 09/14/17 19:20 Ur Leukocyte Esterase TRACE (NEGATIVE) H 09/14/17 19:20 Urine RBC 0-2 /hpf (0-5) 09/14/17 19:20 Urine WBC 0-2 /hpf (0-5) 09/14/17 19:20 Ur Epithelial Cells OCCASIONAL /lpf (FEW) 09/14/17 19:20 Urine Bacteria NONE SEEN /hpf (NONE SEEN) 09/14/17 19:20 Valproic Acid < 10.0 ug/mL (50.0-100.0) L 10/08/17 07:30 RPR NONREACTIVE (NONREACTIVE) 09/14/17 19:15 - Physical Exam Vitals and I&O: Vital Signs Temp 98.1 F 10/19/17 06:15 Pulse 90 10/19/17 09:22 Resp 18 10/19/17 06:15 BP 132/73 10/19/17 09:22 Pulse Ox 97 10/19/17 06:15 Intake & Output 10/18/17 10/19/17 10/19/17 18:59 06:59 18:59 Intake Total 120 Balance 120 Intake: Oral 120 Other: # Voids 3 Active Medications: Current Medications Acetaminophen (Tylenol) 650 mg PO Q4HR PRN PRN Reason: Pain or Fever >101 Stop: 11/13/17 22:40 Last Admin: 10/17/17 21:32 Dose: 650 mg Atorvastatin Calcium (Lipitor) 20 mg PO DAILY [facility]; Protocol Stop: 11/14/17 12:44 Last Admin: 10/19/17 09:21 Dose: 20 mg Chlorpromazine (Thorazine) 50 mg PO BID [facility]; Protocol Stop: 12/15/17 16:59 Last Admin: 10/19/17 09:21 Dose: 50 mg Docusate Sodium (Colace) 100 mg PO BID [facility] Stop: 11/14/17 08:59 Last Admin: 10/19/17 09:21 Dose: 100 mg Levothyroxine Sodium 0.1 mg/ (Levothyroxine Sodium 0.025 mg) 0.125 mg PO QDAC [facility] Stop: 11/17/17 07:29 Last Admin: 10/19/17 06:37 Dose: 0.125 mg Lisinopril (Zestril) 20 mg PO DAILY [facility] Stop: 11/14/17 08:59 Last Admin: 10/19/17 09:21 Dose: 20 mg Metoprolol Tartrate (Lopressor) 25 mg PO DAILY [facility] Stop: 11/14/17 08:59 Last Admin: 10/19/17 09:22 Dose: 25 mg Sodium Chloride (Nacl Tab) 1 gm PO TID [facility] Stop: 11/14/17 08:59 Last Admin: 10/19/17 13:24 Dose: 1 gm Zolpidem Tartrate (Ambien) 5 mg PO HS PRN PRN Reason: Insomnia Stop: 11/13/17 22:44 Last Admin: 10/18/17 21:17 Dose: 5 mg General: alert HEENT: NC/AT, PERRLA Neck: Supple Lungs: CTAB Cardiovascular: RRR, Normal S1, Normal S2, without murmur Abdomen: soft, non-tender, non-distended, positive bowel sound Extremities: excoriation Neurological: alert - Procedures Procedures: Procedures Procedure Code Date APPENDECTOMY ADD-ON 69354 08/04/15 BYPASS TRANSVERSE COLON TO CUTANEOUS, OPEN APPROACH [id number] 08/04/15 COLOSTOMY 94761 08/04/15 EXCISION OF LARGE INTESTINE, OPEN APPROACH [id number] 08/04/15 GROUP PSYCHOTHERAPY 59062 07/31/15 GROUP PSYCHOTHERAPY GZHZZZZ 07/31/15 GROUP PSYCHOTHERAPY 24446 04/02/15 GROUP PSYCHOTHERAPY GZHZZZZ 04/02/15 OTHER GROUP THERAPY 94.44 11/07/14 PARTIAL REMOVAL OF COLON 27550 08/04/15 RECREATIONAL THERAPY 93.81 02/21/10 RESECTION OF APPENDIX, OPEN APPROACH [id number] 08/04/15 Internal Medicine Assmt/Plan - Assessment Assessment: - Assessment Assessment: MRSA NARES htn hypothyroidism diverting colostomy dmenetia obesity anemia hyponatremia hyperglycemia - Plan Plan: cont with bactroban fall precautions continue current plan of care - Plan Plan: cpm fall precaution Nutritional Asmnt/Malnutr-PDOC - Dietary Evaluation Malnutrition Findings (Please click <Entered> for more info): Nutritional Asmnt/Malnutrition Start: 09/18/17 14: 05 Text: Status: Complete Freq: Protocol: Document 09/18/17 14:06 [facility] (Rec: 09/18/17 14:22 HEN [email or web address]) Nutritional Asmnt/Malnutrition Patient General Information Nutritional Screening Moderate Risk Diagnosis psychosis Pertinent Medical Hx/Surgical Hx HTN, thyroid disorder, cardiomegaly, hypothyroidism, rectal prolapse, femal geital prolapse, hyponatremia, schizophrenia, ptosis, schizophrenia Subjective Information Per EMR, PO intake 100% of meals. Per nurse note, pt was confused and rambling, difficult to understand her. Current Diet Order/ Nutrition Support mech soft ground Pertinent Medications levothyroixine, nacl Pertinent Labs 09/17 Na 132, Cr 0.5, glucose 98 09/14 Na 124, Cl 91, Cr 0.5, glucose 106, A1c 5.8 Nutritional Hx/Data Height 1.91 m Height (Calculated Centimeters) 190.5 Current Weight (lbs) 67.585 kg Weight (Calculated Kilograms) 67.6 Weight (Calculated Grams) 08097.3 [place] Body Weight 196 Body Mass Index (BMI) 18.6 Weight Status Approriate GI Symptoms GI Symptoms None Last BM 09/16 Difficult in: None Skin Integrity/Comment: Fabrizio wallis 19 Current %PO Good (75-100%) Estimated Nutritional Goals BEE in Kcals: Using Current wt Calories/Kcals/Kg 27-32 Kcals Calculated 1250-6890 Protein: Using Current wt Protein g/k-1.2 Protein Calculated 68-82 Fluid: ml 1836-2176ml (1ml/kcal) Nutritional Problem No current Nutrition Prob Problem N/A Malnutrition Alert Is there a minimum of two criteria No selected? Query Text:Check all the applicable criteria. A minimum of two criteria are recommended for diagnosis of either severe or non-severe malnutrition. Malnutrition Related to Morbid Obesity Malnutrition related to morbid obesity No Intervention/Recommendation Comments 1. Continue with [facility] soft ground diet as ordered. 2. Monitor PO intake, wt, labs and skin integrity 3. F/U as low risk in 7 days, 09/25 Expected Outcomes/Goals Expected Outcomes/Goals 1. PO intake to meet at least 75% of nutritional needs. 2. Wt stability, skin to remain intact, labs to approach WNL.
--- NOTE | 2017-10-19 21:22 | Progress Notes ---
DATE: 10/19/2017 Case was discussed with staff of the patient, reviewed records. The patient is still rambling, still getting agitated, but in general, she is showing progress. She is sleeping better, eating better. She is compliant with the medication with no side effects, no sedation, no nausea and no extrapyramidal symptoms. She tolerated the increase in Thorazine and will continue outpatient group therapy, milieu therapy, and adjust the medication as needed. JOB# [id number]
[2017-10-20] MEDS: Atorvastatin Calcium 10 MG TAB PO SCH (08:12)
--- NOTE | 2017-10-20 11:02 | Internal Medicine Prog Note ---
Internal Medicine Subjective - Subjective Service Date: 10/20/17 Patient is:: awake, verbal, interactive Patient Complaints of:: congestion Per staff patient has:: no adverse event, no episodes of fall, poor appetite, tolerating meds Internal Medicine Objective - Results Result Diagrams: 09/17/17 07:20 09/17/17 07:20 Recent Labs: Laboratory Last Values WBC 4.3 Th/cmm (4.8-10.8) L 09/17/17 07:20 RBC 4.11 Mil/cmm (3.80-5.20) 09/17/17 07:20 Hgb 12.1 gm/dL (12-16) 09/17/17 07:20 Hct 35.1 % (41.0-60) L 09/17/17 07:20 MCV 85.3 fl (81-100) 09/17/17 07:20 MCH 29.5 pg (27.0-31.0) 09/17/17 07:20 MCHC Differential 34.6 pg (28.0-36.0) 09/17/17 07:20 RDW 12.1 % (11.5-20.0) 09/17/17 07:20 Plt Count 257 Th/cmm (150-400) 09/17/17 07:20 MPV 7.4 fl 09/17/17 07:20 Neutrophils % 47.3 % (40.0-80.0) 09/17/17 07:20 Lymphocytes % 38.6 % (20.0-50.0) 09/17/17 07:20 Monocytes % 10.2 % (2.0-10.0) H 09/17/17 07:20 Eosinophils % 2.5 % (0.0-5.0) 09/17/17 07:20 Basophils % 1.4 % (0.0-2.0) 09/17/17 07:20 Sodium 132 mEq/L (136-145) L 09/17/17 07:20 Potassium 4.1 mEq/L (3.5-5.1) 09/17/17 07:20 Chloride 98 mEq/L (98-107) 09/17/17 07:20 Carbon Dioxide 27.6 mEq/L (21.0-31.0) 09/17/17 07:20 Anion Gap 10.5 (7.0-16.0) 09/17/17 07:20 BUN 12 mg/dL (7-25) 09/17/17 07:20 Creatinine 0.5 mg/dL (0.6-1.2) L 09/17/17 07:20 Est GFR ( Amer) TNP 09/17/17 07:20 Est GFR (Non-Af Amer) TNP 09/17/17 07:20 BUN/Creatinine Ratio 24.0 09/17/17 07:20 Glucose 98 mg/dL (70-105) 09/17/17 07:20 Hemoglobin A1c % 5.8 % (4.0-6.0) 09/14/17 19:15 Calcium 9.5 mg/dL (8.6-10.3) 09/17/17 07:20 Total Bilirubin 0.4 mg/dL (0.3-1.0) 09/14/17 19:15 AST 16 U/L (13-39) 09/14/17 19:15 ALT 11 U/L (7-52) 09/14/17 19:15 Alkaline Phosphatase 94 U/L (34-104) 09/14/17 19:15 Total Protein 8.1 gm/dL (6.0-8.3) 09/14/17 19:15 Albumin 4.4 gm/dL (3.7-5.3) 09/14/17 19:15 Globulin 3.7 gm/dL 09/14/17 19:15 Albumin/Globulin Ratio 1.2 (1.0-1.8) 09/14/17 19:15 Triglycerides 267 mg/dL (<150) H 09/14/17 19:15 Cholesterol 232 mg/dL (<200) H 09/14/17 19:15 LDL Cholesterol Direct 154 mg/dL (75-193) 09/14/17 19:15 HDL Cholesterol 52 mg/dL (23-92) 09/14/17 19:15 TSH 0.80 uIU/ml (0.34-5.60) 09/14/17 19:15 Urine Source CLEAN C 09/14/17 19:20 Urine Color YELLOW 09/14/17 19:20 Urine Clarity CLEAR (CLEAR) 09/14/17 19:20 Urine pH 5.5 (4.6 - 8.0) 09/14/17 19:20 Ur Specific [place] <= 1.005 (1.005-1.030) 09/14/17 19:20 Urine Protein NEGATIVE mg/dL (NEGATIVE) 09/14/17 19:20 Urine Glucose (UA) NEGATIVE mg/dL (NEGATIVE) 09/14/17 19:20 Urine Ketones NEGATIVE mg/dL (NEGATIVE) 09/14/17 19:20 Urine Blood NEGATIVE (NEGATIVE) 09/14/17 19:20 Urine Nitrate NEGATIVE (NEGATIVE) 09/14/17 19:20 Urine Bilirubin NEGATIVE (NEGATIVE) 09/14/17 19:20 Urine Urobilinogen 0.2 E.U./dL (0.2 - 1.0) 09/14/17 19:20 Ur Leukocyte Esterase TRACE (NEGATIVE) H 09/14/17 19:20 Urine RBC 0-2 /hpf (0-5) 09/14/17 19:20 Urine WBC 0-2 /hpf (0-5) 09/14/17 19:20 Ur Epithelial Cells OCCASIONAL /lpf (FEW) 09/14/17 19:20 Urine Bacteria NONE SEEN /hpf (NONE SEEN) 09/14/17 19:20 Valproic Acid < 10.0 ug/mL (50.0-100.0) L 10/08/17 07:30 RPR NONREACTIVE (NONREACTIVE) 09/14/17 19:15 - Physical Exam Vitals and I&O: Vital Signs Temp 97.4 F 10/20/17 06:19 Pulse 77 10/20/17 08:13 Resp 20 10/20/17 06:19 BP 139/83 10/20/17 08:13 Pulse Ox 97 10/20/17 06:19 Intake & Output 10/19/17 10/20/17 10/20/17 18:59 06:59 18:59 Intake Total 900 120 Balance 900 120 Intake: Oral 900 120 Other: # Voids 3 3 # Bowel Movements 1 Active Medications: Current Medications Acetaminophen (Tylenol) 650 mg PO Q4HR PRN PRN Reason: Pain or Fever >101 Stop: 11/13/17 22:40 Last Admin: 10/17/17 21:32 Dose: 650 mg Atorvastatin Calcium (Lipitor) 20 mg PO DAILY [facility]; Protocol Stop: 11/14/17 12:44 Last Admin: 10/20/17 08:12 Dose: 20 mg Chlorpromazine (Thorazine) 50 mg PO BID [facility]; Protocol Stop: 12/15/17 16:59 Last Admin: 10/20/17 08:15 Dose: 50 mg Docusate Sodium (Colace) 100 mg PO BID [facility] Stop: 11/14/17 08:59 Last Admin: 10/20/17 08:12 Dose: 100 mg Levothyroxine Sodium 0.1 mg/ (Levothyroxine Sodium 0.025 mg) 0.125 mg PO QDAC [facility] Stop: 11/17/17 07:29 Last Admin: 10/20/17 06:41 Dose: 0.125 mg Lisinopril (Zestril) 20 mg PO DAILY [facility] Stop: 11/14/17 08:59 Last Admin: 10/20/17 08:13 Dose: 20 mg Metoprolol Tartrate (Lopressor) 25 mg PO DAILY [facility] Stop: 11/14/17 08:59 Last Admin: 10/20/17 08:13 Dose: 25 mg Sodium Chloride (Nacl Tab) 1 gm PO TID [facility] Stop: 11/14/17 08:59 Last Admin: 10/20/17 08:13 Dose: 1 gm Zolpidem Tartrate (Ambien) 5 mg PO HS PRN PRN Reason: Insomnia Stop: 11/13/17 22:44 Last Admin: 10/19/17 21:18 Dose: 5 mg General: alert HEENT: NC/AT, PERRLA Neck: Supple Lungs: CTAB Cardiovascular: RRR, Normal S1, Normal S2, without murmur Abdomen: soft, non-tender, non-distended, positive bowel sound Extremities: excoriation Neurological: alert - Procedures Procedures: Procedures Procedure Code Date APPENDECTOMY ADD-ON 73717 08/04/15 BYPASS TRANSVERSE COLON TO CUTANEOUS, OPEN APPROACH [id number] 08/04/15 COLOSTOMY 86678 08/04/15 EXCISION OF LARGE INTESTINE, OPEN APPROACH [id number] 08/04/15 GROUP PSYCHOTHERAPY 89098 07/31/15 GROUP PSYCHOTHERAPY GZHZZZZ 07/31/15 GROUP PSYCHOTHERAPY 40562 04/02/15 GROUP PSYCHOTHERAPY GZHZZZZ 04/02/15 OTHER GROUP THERAPY 94.44 11/07/14 PARTIAL REMOVAL OF COLON 75509 08/04/15 RECREATIONAL THERAPY 93.81 02/21/10 RESECTION OF APPENDIX, OPEN APPROACH [id number] 08/04/15 Internal Medicine Assmt/Plan - Assessment Assessment: MRSA NARES htn hypothyroidism diverting colostomy dmenetia obesity anemia hyponatremia hyperglycemia - Plan Plan: fall precautions continue current plan of care Nutritional Asmnt/Malnutr-PDOC - Dietary Evaluation Malnutrition Findings (Please click <Entered> for more info): Nutritional Asmnt/Malnutrition Start: 09/18/17 14: 05 Text: Status: Complete Freq: Protocol: Document 09/18/17 14:06 [facility] (Rec: 09/18/17 14:22 [facility] [email or web address]) Nutritional Asmnt/Malnutrition Patient General Information Nutritional Screening Moderate Risk Diagnosis psychosis Pertinent Medical Hx/Surgical Hx HTN, thyroid disorder, cardiomegaly, hypothyroidism, rectal prolapse, femal geital prolapse, hyponatremia, schizophrenia, ptosis, schizophrenia Subjective Information Per EMR, PO intake 100% of meals. Per nurse note, pt was confused and rambling, difficult to understand her. Current Diet Order/ Nutrition Support mech soft ground Pertinent Medications levothyroixine, nacl Pertinent Labs 09/17 Na 132, Cr 0.5, glucose 98 09/14 Na 124, Cl 91, Cr 0.5, glucose 106, A1c 5.8 Nutritional Hx/Data Height 6 ft 3 in Height (Calculated Centimeters) 190.5 Current Weight (lbs) 149 lb Weight (Calculated Kilograms) 67.6 Weight (Calculated Grams) 21543.3 [place] Body Weight 196 Body Mass Index (BMI) 18.6 Weight Status Approriate GI Symptoms GI Symptoms None Last BM 09/16 Difficult in: None Skin Integrity/Comment: dryness, Fabrizio 19 Current %PO Good (75-100%) Estimated Nutritional Goals BEE in Kcals: Using Current wt Calories/Kcals/Kg 27-32 Kcals Calculated 0202-6762 Protein: Using Current wt Protein g/k-1.2 Protein Calculated 68-82 Fluid: ml 1836-2176ml (1ml/kcal) Nutritional Problem No current Nutrition Prob Problem N/A Malnutrition Alert Is there a minimum of two criteria No selected? Query Text:Check all the applicable criteria. A minimum of two criteria are recommended for diagnosis of either severe or non-severe malnutrition. Malnutrition Related to Morbid Obesity Malnutrition related to morbid obesity No Intervention/Recommendation Comments 1. Continue with mec soft ground diet as ordered. 2. Monitor PO intake, wt, labs and skin integrity 3. F/U as low risk in 7 days, 09/25 Expected Outcomes/Goals Expected Outcomes/Goals 1. PO intake to meet at least 75% of nutritional needs. 2. Wt stability, skin to remain intact, labs to approach WNL.
--- NOTE | 2017-10-20 13:30 | Discharge Summary ---
DATE OF DISCHARGE: 10/20/2017 IDENTIFYING INFORMATION: The patient is a 77-year-old female. CHIEF COMPLAINT: The patient was sent from [place] because of agitation, walking naked in the hallway, urinating in the office on the floor, hard to redirect, unpredictable, impulsive, unable to express herself, easily agitated, irritable. The patient in [place] with multiple prior admissions to this facility at [place]. The patient also was noted medical problems. She has colostomy bag. She cannot speak clearly because there is a hole in the soft palate with a history of hypertension, thyromegaly, hypothyroidism, rectal prolapse, uterine prolapse, hyponatremia. COURSE IN THE HOSPITAL: The patient started back on her medication, Zyprexa and I increased the dose to 25 mg a day; however, the patient did not get any better. Dr. Hernandez tried to put on Seroquel and taper off the Zyprexa; however, she did well on the Trileptal even despite increasing the dose. I initiated starting her increased the dose to 50 mg twice a day and is asking for a help. She was continued on levothyroxine 0.125 mg daily, atorvastatin 20 mg daily, metoprolol 25 mg daily and she was also on sodium chloride to help with hyponatremia. The patient did have a wound and they took care of that. The patient most of her stay at the beginning was urinating on the floor, throwing feces on the floor. She has a colostomy bag. She was unpredictable, impulsive, but toward the end of her stay, she was pleasant, cooperative, no longer acting out of control. No acting out behavior. So, we felt she could be discharged to a lesser level of care. FINAL DIAGNOSIS: AXIS I: Schizoaffective disorder. MEDICAL DIAGNOSES: Colostomy bag, hypertension, hyperlipidemia, uterine prolapse, and hyponatremia. The patient will follow up with psych primary care physician or go back to [place]. EXPECTED OUTCOME: Stable, if the patient complies with the above. [facility]# [id number]
== END 2017-10-20 16:20 | DRG 885 ==
LOC: ER 19:00 → GERO 20:29
PROVIDERS: ADMIT Psychiatry & Neurology Psychiatry; ATTEND Psychiatry & Neurology Psychiatry
DX: F25.9 Schizoaffective disorder, unspecified (principal); Z93.3 Colostomy status; E87.1 Hypo-osmolality and hyponatremia; I10 Essential (primary) hypertension; E78.5 Hyperlipidemia, unspecified; E03.9 Hypothyroidism, unspecified; E66.9 Obesity, unspecified; F03.90 Unspecified dementia, unspecified severity, without behavioral disturbance, psychotic disturbance, mood disturbance, and anxiety; D64.9 Anemia, unspecified; R73.9 Hyperglycemia, unspecified; B95.62 Methicillin resistant Staphylococcus aureus infection as the cause of diseases classified elsewhere; N81.10 Cystocele, unspecified; K62.3 Rectal prolapse; Z68.26 Body mass index [BMI] 26.0-26.9, adult
CPT/HCPCS: 36415-UA; 71045-TC; 80048-TC; 80053-TC; 80061-TC; 80164-TC; 81001-TC; 83036-90; 84443-TC; 85025-TC; 86592-TC; 93005; G0410; J1200; J1630; J2060; J7051; Q0161; Z7610

== ENCOUNTER 2018-11-03 10:55 | Inpatient (IN) | payer MEDICARE, MEDICAID ==
[2018-11-03] MEDS ORDERED: Haloperidol Lactate 5 mg/mL 1mL Vial IM STA (11:21)
[2018-11-03] MEDS ORDERED: Haloperidol Lactate 5 mg/mL 1mL Vial ONE (11:22)
[2018-11-03 11:38] LABS: % BASOPHILS 0.1 % (0.0-2.0); % EOSINOPHILS 1.5 % (0.0-5.0); % NEUTROPHILS 55.4 % (40.0-80.0); EOSINOPHILE ABSOLUTE 0.1 Th/cmm (0.1-0.4); HEMATOCRIT 34.6 % (41.0-60); HEMOGLOBIN 11.7 gm/dL (12-16); LYMPHOCYTE ABSOLUTE 1.8 Th/cmm (1.5-3.0); MEAN CELL VOLUME 83.8 fl (81-100); MEAN CORPUSCULAR HEMOGLOBIN 28.2 pg (27.0-31.0); MEAN CORPUSCULAR HGB CONC 33.7 pg (28.0-36.0); MONOCYTE ABSOLUTE 0.6 Th/cmm (0.3-1.0); NEUTROPHILE ABSOLUTE 3.1 Th/cmm (1.8-8.0); PLATELET COUNT 312 Th/cmm (150-400); RED BLOOD COUNT 4.13 Mil/cmm (3.80-5.20); RED CELL DISTRIBUTION WIDTH 12.2 % (11.5-20.0); WHITE BLOOD COUNT 5.6 Th/cmm (4.8-10.8)
[2018-11-03 11:43] LABS: INR 0.98 (0.5-1.4)
[2018-11-03 11:47] LABS: ALB/GLOB RATIO 1.3 (1.0-1.8); ALKALINE PHOSPHATASE 81 U/L (34-104); ANION GAP 11.1 (7.0-16.0); BILIRUBIN,TOTAL 0.4 mg/dL (0.3-1.0); BUN - UREA NITROGEN 8 mg/dL (7-25); CALCIUM SERUM 9.5 mg/dL (8.6-10.3); CARBON DIOXIDE 26.1 mEq/L (21.0-31.0); CHLORIDE 95 mEq/L (98-107); CREATININE - SERUM 0.5 mg/dL (0.6-1.2); GLUCOSE 119 mg/dL (70-105); POTASSIUM SERUM 4.2 mEq/L (3.5-5.1); SGOT 17 U/L (13-39); SGPT/ALT 14 U/L (7-52); SODIUM SERUM 128 mEq/L (136-145)
[2018-11-03] MEDS ORDERED: Aspirin 81mg Chewable Tab ONE (11:51)
[2018-11-03] MEDS ORDERED: Sodium Chloride 0.9% 500 ML IV ONE (12:19)
--- NOTE | 2018-11-03 12:19 | ED Physician Chart ---
ED Chief Complaint/HPI - Patient Information Date Seen:: 11/03/18 Time Seen:: 11:14 Chief Complaint:: combative History of Present Illness:: this is a 78 yo female sent from to this er from the senior care for evaluation and treatment because of her combative and uncooperative behavior. Allergies:: Allergies Allergy/AdvReac Type Severity Reaction Status Date / Time No Known Allergies Allergy Verified 11/03/18 11:05 Vitals:: Vital Signs - 8 hr 11/03/18 11:05 Temp 98.6 F HR 71 RR 18 BP 101/56 O2 Sat % 97 Historian:: EMS, Medical Records Review:: Nurse's Note Reviewed, Old Chart Reviewed ED Review of Systems - Review of Systems General/Constitutional: No fever, No chills, No weight loss, No weakness, No diaphoresis, No edema, No loss of appetite, Other (this patient is unable to give a review of systems.) Skin: No skin lesions, No rash, No bruising Head: No headache, No light-headedness Eyes: No loss of vision, No pain, No diplopia ENT: No earache, No nasal drainage, No sore throat, No tinnitus Neck: No neck pain, No swelling, No thyromegaly, No stiffness, No mass noted Cardio Vascular: No chest pain, No palpitations, No PND, No orthopnea, No edema Pulmonary: No SOB, No cough, No sputum, No wheezing GI: No nausea, No vomiting, No diarrhea, No pain, No melena, No hematochezia, No constipation, No hematemesis G/U: No dysuria, No frequency, No hematuria Musculoskeletal: No bone or joint pain, No back pain, No muscle pain Endocrine: No polyuria, No polydipsia Psychiatric: No prior psych history, No depression, No anxiety, No suicidal ideation Hematopoietic: No bruising, No lymphadenopathy Allergic/Immuno: No urticaria, No angioedema Neurological: No syncope, No focal symptoms, No weakness, No paresthesia, No headache, No seizure, No dizziness, No confusion, No vertigo ED Past Medical History - Past Medical History Obtainable: Yes Past Medical History: HTN, CAD, CHF, Dyslipidemia, Thyroid disorder, Dementia Family History: None Social History: Non Smoker, No Alcohol, No Drug Use, Care Facility Surgical History: other (colostomy,) Family Medical History - Family Member Mother History Unknown: Yes Ethnicity: Unknown Living Status: Unknown Father History Unknown: Yes ED Physical Exam - Physical Examination General/Constitutional: Awake, Well-developed, well-nourished, Alert, No distress, GCS 15, Non-toxic appearing, Ambulatory Other Gen/Cons comments:: combative and refused examination Head: Atraumatic Eyes: Lids, conjuctiva normal, PERRL, EOMI Skin: Nl inspection, No rash, No skin lesions, No ecchymosis, Well hydrated, No lymphadenopathy ENMT: External ears, nose nl, Nasal exam nl, Lips, teeth, gums nl Neck: Nontender, Full ROM w/o pain, No JVD, No nuchal rigidity, No bruit, No mass, No stridor Respiratory: Nl effort/Exclusion, Clear to Auscultation, No Wheeze/Rhonchi/Rales Cardio Vascular: RRR, No murmur, gallop, rubs, NL S1 S2 GI: No tenderness/rebounding/guarding, No organomegaly, No hernia, Normal BS's, Nondistended, No mass/bruits, No McBurney tenderness Other GI comments:: colostomy noted on the left side : No CVA tenderness Extremities: No tenderness or effusion, Full ROM, normal strength in all extremities, No edema, Normal digits & nails Neuro/Psych: Alert/oriented, DTR's symmetric, Normal sensory exam, Normal motor strength, Judgement/insight normal (combative and uncooperative), Mood normal, Normal gait, No focal deficits Misc: Normal back, No paraspinal tenderness ED Labs/Radiology/EKG Results - Lab Results Results: Laboratory Tests 11/03/18 11/03/18 11/03/18 10:20 10:20 10:20 WBC 5.6 RBC 4.13 Hgb 11.7 L Hct 34.6 L MCV 83.8 MCH 28.2 MCHC Differential 33.7 RDW 12.2 Plt Count 312 MPV 7.4 Neutrophils % 55.4 Lymphocytes % 32.0 Monocytes % 11.0 H Eosinophils % 1.5 Basophils % 0.1 PT 10.2 INR 0.98 PTT (Actin FS) 26.1 Sodium 128 L Potassium 4.2 Chloride 95 L Carbon Dioxide 26.1 Anion Gap 11.1 BUN 8 Creatinine 0.5 L Est GFR ( Amer) TNP Est GFR (Non-Af Amer) TNP BUN/Creatinine Ratio 16.0 Glucose 119 H Calcium 9.5 Total Bilirubin 0.4 AST 17 ALT 14 Alkaline Phosphatase 81 Total Protein 7.0 Albumin 4.0 Globulin 3.0 Albumin/Globulin Ratio 1.3 ED Assessment - Assessment General Assessment: psychosis ED Septic Shock - . Is Septic Shock (SBP<90, OR Lactate>4 mmol\L) present?: No - <6hrs of presentation: Vital Signs: Vital Signs - 8 hr 11/03/18 11:05 Temp 98.6 F HR 71 RR 18 BP 101/56 O2 Sat % 97 ED Reassessment (Disposition) - Diagnosis Diagnosis:: sever psychosis - Patient Disposition Discharge/Transfer:: Acute Care w/in this hosp Admitting Medical Physician:: Abe Sales Admitting Psych Physician:: Areli Kaufman Condition at Disposition:: Unchanged
[2018-11-03 13:53] LABS: CHOLESTEROL 122 mg/dL (<200); HDL -HIGH DENSITY LIPOPROTEIN 52 mg/dL (23-92); TRIGLYCERIDES 74 mg/dL (<150)
[2018-11-03 14:08] VITALS: BP 127/67
[2018-11-03] MEDS ORDERED: Magnesium Hydroxide (MOM) 30 mL UDC PO PRN (14:47)
[2018-11-03] MEDS ORDERED: Maalox 30 mL Cup PO PRN (14:47)
--- NOTE | 2018-11-03 15:17 | History & Physical ---
ADMIT DATE: 11/03/2018 IDENTIFYING INFORMATION: The patient is a 78-year-old female. HISTORY OF PRESENT ILLNESS: this patient was seen by me yesterday. The patient has been scratching her face, has been very agitated. The patient is unable to make safe plan for self-care. She is very hard to understand. She has a rambling speech. She has a hole in her mouth and the palate. She can express herself very well. The patient with a history of schizoaffective disorder with multiple prior admissions to this facility. The patient denies any intent to harm herself or anyone; however, she is hard to understand. PAST PSYCHIATRIC HISTORY: Multiple prior admissions to this facility for similar reason because of agitation, out of control behavior with a history of smearing feces and acting out. MEDICAL HISTORY: As per medical doctor. MEDICATIONS: The patient has been on chlorpromazine 50 mg 1 tablet daily, Lipitor 20 mg daily, lisinopril 20 mg daily, metoprolol. She has hypertension. She has hypothyroidism, on Synthroid 112 mcg daily. The patient also has many medical problems including colostomy bag and she had a history of hemorrhoidectomy recently. SOCIAL HISTORY: The patient is unable to give information, rambling speech, unable to understand. She has no family involved. MENTAL STATUS EXAMINATION: The patient is appropriately dressed, not well groomed. She has scratches all over her face. Unable to follow direction or make safe plan for self-care. Rambling speech, unable to tell me the date, where she is, why she is here, very poor historian. Her long and short term memory is poor because of her rambling speech, unable to understand questions at the time. Her insight and judgment is impaired. She was acting out, scratching herself. Face is full of scratches of blood. Insight and judgment are questionable. IMPRESSION: Schizoaffective disorder, bipolar type. MEDICAL DIAGNOSES: As per medical doctor. PLAN: The patient will be started back on her medication. We will do group therapy, milieu therapy, and individual therapy. ESTIMATED LENGTH OF STAY: 3-7 days. DISCHARGE CRITERIA: If feeling better, decreased psychosis. After discharge, outpatient treatment. [facility]# [id number] [facility]ITAL[facility]
--- NOTE | 2018-11-03 17:22 | History & Physical ---
ADMIT DATE: 11/03/2018 CHIEF COMPLAINT: Agitated behavior. HISTORY OF PRESENT ILLNESS: This is a 78-year-old female with history of hypertension, arthritis, anemia, hypercholesterolemia and psych disorder, admitted from nursing facility secondary to agitated behavior, hitting the staff. The patient was evaluated in the ER and cleared medically. PAST MEDICAL HISTORY: As mentioned in history of present illness. PAST SURGICAL HISTORY: Status post colostomy secondary to ____ rectal prolapse correction. ALLERGIES: No known drug allergies. MEDICATIONS: The patient on lisinopril, atorvastatin, Thorazine, cranberry, Synthroid, metoprolol, sodium chloride ____. FAMILY HISTORY: Noncontributory. SOCIAL HISTORY: The patient smokes, nondrinker. No intravenous drug use. REVIEW OF SYSTEMS: This is limited secondary to the patient's current mental state. The patient is agitated. The patient is a correction patient from [place] at [phone]. We will also try to get information from nursing staff from there as well as the patient's sister, Monisha Bustos, ; also try to get information from the psychiatrist. PHYSICAL EXAMINATION: VITAL SIGNS: Blood pressure 107/68, respiratory rate 14, pulse 66, temperature 98.6. GENERAL: Elderly female, appears her stated age, chronically ill. NECK: Supple. No mass. LUNGS: Equal breath sounds. Few rhonchi. HEART: Regular rate and rhythm without appreciable murmur. ABDOMEN: Soft, globular. Positive colostomy. EXTREMITIES: Positive excoriation. LABORATORY DATA: WBC 5, hemoglobin 11, platelets 312. INR within normal range. Sodium 120, potassium 4.2, BUN 84, creatinine 0.5, blood sugar 118. LFTs within normal range. ASSESSMENT: 1. Hypertension. 2. Hypothyroidism. 3. Dementia. 4. 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 5. Anemia. 6. Hyponatremia. 7. Hypercholesterolemia. PLAN: We will correct electrolyte abnormalities. Continue on current antihypertensive medication. Continue Synthroid. We will monitor hemoglobin and hematocrit. We will continue to monitor the patient closely with you, Dr. Kaufman. JOB# [id number]
[2018-11-03] MEDS: Atorvastatin Calcium 10 MG TAB PO SCH (21:14)
[2018-11-04] MEDS: Levothyroxine 0.112 Mg Tab PO SCH (06:52)
[2018-11-04] MEDS ORDERED: Non-Formulary Item 1 EA (Cranberry Fruit [Cranberry] 450 MG) PO SCH (09:00)
[2018-11-04] MEDS: Multivitamin Tab PO SCH (09:00)
--- NOTE | 2018-11-04 09:14 | Diagnostic Imaging Report ---
CHEST X-RAY: AP view INDICATION: Cough COMPARISON: 09/14/2017 FINDINGS: There may be a a right basal chest tube or other catheter material projecting along the right medial lower hemithorax. Increased interstitial lung markings are noted. No focal consolidation or pleural effusions. Heart size at the upper limits of normal. Atherosclerosis is noted. Degenerative changes of the spine are noted. IMPRESSION: Questionable right basal chest tube or other catheter material projecting along the right medial lower hemithorax. Please correlate with clinical history and old exams. No pneumothorax is visualized. No pleural effusion identified. Increased interstitial lung markings favoring chronic lung changes. No focal consolidation identified.
[2018-11-04 10:11] LABS: A1C 6.3 % (4.8-5.6)
--- NOTE | 2018-11-04 12:44 | Internal Medicine Prog Note ---
Internal Medicine Subjective - Subjective Patient seen and examined:: with staff, chart reviewed Patient is:: awake, verbal, interactive, in bed, denies any new complaints, confused Per staff patient has:: no adverse event, no episodes of fall, tolerating meds Internal Medicine Objective - Results Result Diagrams: 11/03/18 10:20 11/03/18 10:20 Recent Labs: Laboratory Last Values WBC 5.6 Th/cmm (4.8-10.8) 11/03/18 10:20 RBC 4.13 Mil/cmm (3.80-5.20) 11/03/18 10:20 Hgb 11.7 gm/dL (12-16) L 11/03/18 10:20 Hct 34.6 % (41.0-60) L 11/03/18 10:20 MCV 83.8 fl (81-100) 11/03/18 10:20 MCH 28.2 pg (27.0-31.0) 11/03/18 10:20 MCHC Differential 33.7 pg (28.0-36.0) 11/03/18 10:20 RDW 12.2 % (11.5-20.0) 11/03/18 10:20 Plt Count 312 Th/cmm (150-400) 11/03/18 10:20 MPV 7.4 fl 11/03/18 10:20 Neutrophils % 55.4 % (40.0-80.0) 11/03/18 10:20 Lymphocytes % 32.0 % (20.0-50.0) 11/03/18 10:20 Monocytes % 11.0 % (2.0-10.0) H 11/03/18 10:20 Eosinophils % 1.5 % (0.0-5.0) 11/03/18 10:20 Basophils % 0.1 % (0.0-2.0) 11/03/18 10:20 PT 10.2 SECONDS (9.5-11.5) 11/03/18 10:20 INR 0.98 (0.5-1.4) 11/03/18 10:20 PTT (Actin FS) 26.1 SECONDS (26.0-38.0) 11/03/18 10:20 Sodium 128 mEq/L (136-145) L 11/03/18 10:20 Potassium 4.2 mEq/L (3.5-5.1) 11/03/18 10:20 Chloride 95 mEq/L (98-107) L 11/03/18 10:20 Carbon Dioxide 26.1 mEq/L (21.0-31.0) 11/03/18 10:20 Anion Gap 11.1 (7.0-16.0) 11/03/18 10:20 BUN 8 mg/dL (7-25) 11/03/18 10:20 Creatinine 0.5 mg/dL (0.6-1.2) L 11/03/18 10:20 Est GFR ( Amer) TNP 11/03/18 10:20 Est GFR (Non-Af Amer) TNP 11/03/18 10:20 BUN/Creatinine Ratio 16.0 11/03/18 10:20 Glucose 119 mg/dL (70-105) H 11/03/18 10:20 POC Glucose 174 MG/DL (70 - 105) H 11/04/18 12:15 Calcium 9.5 mg/dL (8.6-10.3) 11/03/18 10:20 Total Bilirubin 0.4 mg/dL (0.3-1.0) 11/03/18 10:20 AST 17 U/L (13-39) 11/03/18 10:20 ALT 14 U/L (7-52) 11/03/18 10:20 Alkaline Phosphatase 81 U/L (34-104) 11/03/18 10:20 Total Protein 7.0 gm/dL (6.0-8.3) 11/03/18 10:20 Albumin 4.0 gm/dL (3.7-5.3) 11/03/18 10:20 Globulin 3.0 gm/dL 11/03/18 10:20 Albumin/Globulin Ratio 1.3 (1.0-1.8) 11/03/18 10:20 Triglycerides 74 mg/dL (<150) 11/03/18 10:20 Cholesterol 122 mg/dL (<200) 11/03/18 10:20 LDL Cholesterol Direct 56 mg/dL (75-193) L 11/03/18 10:20 HDL Cholesterol 52 mg/dL (23-92) 11/03/18 10:20 - Physical Exam Vitals and I&O: Vital Signs Temp 98.0 F 11/03/18 14:25 Pulse 77 11/04/18 10:07 Resp 18 11/03/18 14:25 BP 128/69 11/04/18 10:07 Pulse Ox 94 11/03/18 14:25 Intake & Output 11/03/18 11/04/18 11/04/18 18:59 06:59 18:59 Intake Total 500 Balance 500 Weight (lbs) 69.4 kg Intake: Intake, IV Amount 500 Sodium Chloride 0.9% 500 500 ml @ Wide Open IV .Q0M ONE Rx#:[id number] Other: Weight Source Estimated Active Medications: Current Medications Acetaminophen (Tylenol) 650 mg PO Q4HR PRN PRN Reason: Mild Pain / Temp above 100 Stop: 01/02/19 14:46 Al Hydrox/Mg Hydrox/Simethicone (Maalox) 30 ml PO Q4HR PRN PRN Reason: GI DISTRESS Stop: 01/02/19 14:46 Atorvastatin Calcium (Lipitor) 20 mg PO HS NICOLE Stop: 01/02/19 20:59 Last Admin: 11/03/18 21:14 Dose: Not Given Chlorpromazine (Thorazine) 50 mg PO DAILY NICOLE Stop: 01/03/19 10:44 Divalproex Sodium (Depakote Er) 250 mg PO Q12HR NICOLE; Protocol Stop: 01/03/19 20:59 Levothyroxine Sodium (Synthroid) 0.112 mg PO QDAC NICOLE Stop: 01/03/19 07:29 Last Admin: 11/04/18 06:52 Dose: 0.112 mg Lisinopril (Zestril) 20 mg PO DAILY NICOLE Stop: 01/03/19 08:59 Last Admin: 11/04/18 09:00 Dose: 20 mg Lorazepam (Ativan) 0.5 mg PO Q4HR PRN; Protocol PRN Reason: Agitation Stop: 01/02/19 14:50 Last Admin: 11/04/18 09:00 Dose: 0.5 mg Magnesium Hydroxide (Milk Of Magnesia) 30 ml PO HS PRN PRN Reason: Constipation Metoprolol Tartrate (Lopressor) 25 mg PO DAILY NICOLE Stop: 01/03/19 08:59 Last Admin: 11/04/18 10:07 Dose: 25 mg Multivitamins/Vitamin C (Theragran) 1 tab PO DAILY NICOLE Stop: 01/03/19 08:59 Last Admin: 11/04/18 09:00 Dose: 1 tab Sodium Chloride (Nacl Tab) 1 gm PO TID NICOLE Stop: 01/02/19 13:59 Last Admin: 11/04/18 09:00 Dose: 1 gm Zolpidem Tartrate (Ambien) 5 mg PO HS PRN PRN Reason: Insomnia Stop: 01/02/19 14:46 General: demented, disheveled HEENT: NC/AT, PERRLA Neck: Supple, No JVD Lungs: CTAB Cardiovascular: RRR, Normal S1, Normal S2, with murmur Abdomen: soft, non-tender, globular, non-distended, positive bowel sound Extremities: excoriation Neurological: no change, disorganized - Procedures Procedures: Procedures Procedure Code Date APPENDECTOMY ADD-ON 96777 08/04/15 BYPASS TRANSVERSE COLON TO CUTANEOUS, OPEN APPROACH [id number] 08/04/15 COLOSTOMY 64880 08/04/15 EXCISION OF LARGE INTESTINE, OPEN APPROACH [id number] 08/04/15 GROUP PSYCHOTHERAPY 52978 07/31/15 GROUP PSYCHOTHERAPY GZHZZZZ 07/31/15 GROUP PSYCHOTHERAPY 13253 04/02/15 GROUP PSYCHOTHERAPY GZHZZZZ 04/02/15 OTHER GROUP THERAPY 94.44 11/07/14 PARTIAL REMOVAL OF COLON 78788 08/04/15 RECREATIONAL THERAPY 93.81 02/21/10 RESECTION OF APPENDIX, OPEN APPROACH [id number] 08/04/15 Internal Medicine Assmt/Plan - Assessment Assessment: ASSESSMENT: 1. Hypertension. 2. Hypothyroidism. 3. Dementia. 4. 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 5. Anemia. 6. Hyponatremia. 7. Hypercholesterolemia. multiple abrasion, skin excoriation - Plan Plan: skin care cxr noted, will compare with other cxr PLAN: We will correct electrolyte abnormalities. Continue on current antihypertensive medication. Continue Synthroid. We will monitor hemoglobin and hematocrit. We will continue to monitor the patient closely
--- NOTE | 2018-11-04 13:59 | Progress Notes ---
DATE: 11/04/2018 SUBJECTIVE: Case was discussed with staff of the patient, reviewed records. The patient continues to be irritable, continues to be rambling, continues to be unable to carry on a conversation or make safe plan for self-care. Continues to be unpredictable, impulsive, needing redirection, having poor insight, loud, irritable. She has no known drug allergy and I will be initiating Depakote on her because of her aggressive behavior. She is on chlorpromazine 50 mg daily. We will continue outpatient group therapy, milieu therapy, and adjust medications as needed. JOB# [id number]
[2018-11-04] MEDS: Atorvastatin Calcium 10 MG TAB PO SCH (21:16)
[2018-11-05] MEDS: Levothyroxine 0.112 Mg Tab PO SCH (06:53)
[2018-11-05] MEDS: Multivitamin Tab PO SCH (09:06)
--- NOTE | 2018-11-05 12:34 | Internal Medicine Prog Note ---
Internal Medicine Subjective - Subjective Patient seen and examined:: with staff, chart reviewed Patient is:: awake, verbal, interactive, in bed, denies any new complaints, confused Per staff patient has:: no adverse event, no episodes of fall, tolerating meds Internal Medicine Objective - Results Result Diagrams: 11/03/18 10:20 11/03/18 10:20 Recent Labs: Laboratory Last Values WBC 5.6 Th/cmm (4.8-10.8) 11/03/18 10:20 RBC 4.13 Mil/cmm (3.80-5.20) 11/03/18 10:20 Hgb 11.7 gm/dL (12-16) L 11/03/18 10:20 Hct 34.6 % (41.0-60) L 11/03/18 10:20 MCV 83.8 fl (81-100) 11/03/18 10:20 MCH 28.2 pg (27.0-31.0) 11/03/18 10:20 MCHC Differential 33.7 pg (28.0-36.0) 11/03/18 10:20 RDW 12.2 % (11.5-20.0) 11/03/18 10:20 Plt Count 312 Th/cmm (150-400) 11/03/18 10:20 MPV 7.4 fl 11/03/18 10:20 Neutrophils % 55.4 % (40.0-80.0) 11/03/18 10:20 Lymphocytes % 32.0 % (20.0-50.0) 11/03/18 10:20 Monocytes % 11.0 % (2.0-10.0) H 11/03/18 10:20 Eosinophils % 1.5 % (0.0-5.0) 11/03/18 10:20 Basophils % 0.1 % (0.0-2.0) 11/03/18 10:20 PT 10.2 SECONDS (9.5-11.5) 11/03/18 10:20 INR 0.98 (0.5-1.4) 11/03/18 10:20 PTT (Actin FS) 26.1 SECONDS (26.0-38.0) 11/03/18 10:20 Sodium 128 mEq/L (136-145) L 11/03/18 10:20 Potassium 4.2 mEq/L (3.5-5.1) 11/03/18 10:20 Chloride 95 mEq/L (98-107) L 11/03/18 10:20 Carbon Dioxide 26.1 mEq/L (21.0-31.0) 11/03/18 10:20 Anion Gap 11.1 (7.0-16.0) 11/03/18 10:20 BUN 8 mg/dL (7-25) 11/03/18 10:20 Creatinine 0.5 mg/dL (0.6-1.2) L 11/03/18 10:20 Est GFR ( Amer) TNP 11/03/18 10:20 Est GFR (Non-Af Amer) TNP 11/03/18 10:20 BUN/Creatinine Ratio 16.0 11/03/18 10:20 Glucose 119 mg/dL (70-105) H 11/03/18 10:20 POC Glucose 174 MG/DL (70 - 105) H 11/04/18 12:15 Calcium 9.5 mg/dL (8.6-10.3) 11/03/18 10:20 Total Bilirubin 0.4 mg/dL (0.3-1.0) 11/03/18 10:20 AST 17 U/L (13-39) 11/03/18 10:20 ALT 14 U/L (7-52) 11/03/18 10:20 Alkaline Phosphatase 81 U/L (34-104) 11/03/18 10:20 Total Protein 7.0 gm/dL (6.0-8.3) 11/03/18 10:20 Albumin 4.0 gm/dL (3.7-5.3) 11/03/18 10:20 Globulin 3.0 gm/dL 11/03/18 10:20 Albumin/Globulin Ratio 1.3 (1.0-1.8) 11/03/18 10:20 Triglycerides 74 mg/dL (<150) 11/03/18 10:20 Cholesterol 122 mg/dL (<200) 11/03/18 10:20 LDL Cholesterol Direct 56 mg/dL (75-193) L 11/03/18 10:20 HDL Cholesterol 52 mg/dL (23-92) 11/03/18 10:20 - Physical Exam Vitals and I&O: Vital Signs Temp 97.5 F 11/05/18 06:06 Pulse 82 11/05/18 09:05 Resp 20 11/05/18 06:06 BP 119/65 11/05/18 09:05 Pulse Ox 98 11/05/18 06:06 Intake & Output 11/04/18 11/05/18 11/05/18 18:59 06:59 18:59 Intake Total 240 Balance 240 Intake: Oral 240 Other: # Voids 2 Active Medications: Current Medications Acetaminophen (Tylenol) 650 mg PO Q4HR PRN PRN Reason: Mild Pain / Temp above 100 Stop: 01/02/19 14:46 Al Hydrox/Mg Hydrox/Simethicone (Maalox) 30 ml PO Q4HR PRN PRN Reason: GI DISTRESS Stop: 01/02/19 14:46 Atorvastatin Calcium (Lipitor) 20 mg PO HS NICOLE Stop: 01/02/19 20:59 Last Admin: 11/04/18 21:16 Dose: 20 mg Chlorpromazine (Thorazine) 50 mg PO DAILY NICOLE Stop: 01/03/19 10:44 Last Admin: 11/05/18 09:04 Dose: 50 mg Divalproex Sodium (Depakote Er) 250 mg PO Q12HR NICOLE; Protocol Stop: 01/03/19 20:59 Last Admin: 11/05/18 09:04 Dose: 250 mg Levothyroxine Sodium (Synthroid) 0.112 mg PO QDAC NICOLE Stop: 01/03/19 07:29 Last Admin: 11/05/18 06:53 Dose: 0.112 mg Lisinopril (Zestril) 20 mg PO DAILY NICOLE Stop: 01/03/19 08:59 Last Admin: 11/05/18 09:04 Dose: 20 mg Lorazepam (Ativan) 0.5 mg PO Q4HR PRN; Protocol PRN Reason: Agitation Stop: 01/02/19 14:50 Last Admin: 11/04/18 18:29 Dose: 0.5 mg Magnesium Hydroxide (Milk Of Magnesia) 30 ml PO HS PRN PRN Reason: Constipation Metoprolol Tartrate (Lopressor) 25 mg PO DAILY NICOLE Stop: 01/03/19 08:59 Last Admin: 11/05/18 09:05 Dose: 25 mg Multivitamins/Vitamin C (Theragran) 1 tab PO DAILY NICOLE Stop: 01/03/19 08:59 Last Admin: 11/05/18 09:06 Dose: 1 tab Sodium Chloride (Nacl Tab) 1 gm PO TID NICOLE Stop: 01/02/19 13:59 Last Admin: 11/05/18 09:06 Dose: 1 gm Zolpidem Tartrate (Ambien) 5 mg PO HS PRN PRN Reason: Insomnia Stop: 01/02/19 14:46 Last Admin: 11/04/18 21:16 Dose: 5 mg General: demented, disheveled HEENT: NC/AT, PERRLA Neck: Supple, No JVD Lungs: CTAB Cardiovascular: RRR, Normal S1, Normal S2, with murmur Abdomen: soft, non-tender, globular, non-distended, positive bowel sound Extremities: excoriation Neurological: no change, disorganized - Procedures Procedures: Procedures Procedure Code Date APPENDECTOMY ADD-ON 02956 08/04/15 BYPASS TRANSVERSE COLON TO CUTANEOUS, OPEN APPROACH [id number] 08/04/15 COLOSTOMY 55352 08/04/15 EXCISION OF LARGE INTESTINE, OPEN APPROACH [id number] 08/04/15 GROUP PSYCHOTHERAPY 87200 07/31/15 GROUP PSYCHOTHERAPY GZHZZZZ 07/31/15 GROUP PSYCHOTHERAPY 76709 04/02/15 GROUP PSYCHOTHERAPY GZHZZZZ 04/02/15 OTHER GROUP THERAPY 94.44 11/07/14 PARTIAL REMOVAL OF COLON 00802 08/04/15 RECREATIONAL THERAPY 93.81 02/21/10 RESECTION OF APPENDIX, OPEN APPROACH [id number] 08/04/15 Internal Medicine Assmt/Plan - Assessment Assessment: ASSESSMENT: 1. Hypertension. 2. Hypothyroidism. 3. Dementia. 4. 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 5. Anemia. 6. Hyponatremia. 7. Hypercholesterolemia. multiple abrasion, skin excoriation - Plan Plan: skin care cxr noted, will compare with other cxr PLAN: We will correct electrolyte abnormalities. Continue on current antihypertensive medication. Continue Synthroid. We will monitor hemoglobin and hematocrit. We will continue to monitor the patient closely
[2018-11-05] MEDS: Atorvastatin Calcium 10 MG TAB PO SCH (21:03)
--- NOTE | 2018-11-05 23:26 | Progress Notes ---
DATE: 11/05/2018 Case was discussed with staff of the patient, reviewed records. The patient continues to scratch herself. Continues to be unpredictable, impulsive, needing redirection. Continues to have poor insight. She continues to pick on her skin. Also, she is dealing with her colostomy bag according to staff, she is unpredictable, impulsive, needing redirection. I added Depakote yesterday with no side effects, no sedation, no nausea, or no extrapyramidal symptoms. We will continue outpatient group therapy, milieu therapy, and adjust the medication as needed. JOB# [id number]
[2018-11-06] MEDS: Levothyroxine 0.112 Mg Tab PO SCH (06:51)
[2018-11-06] MEDS: Multivitamin Tab PO SCH (09:03)
--- NOTE | 2018-11-06 12:38 | Internal Medicine Prog Note ---
Internal Medicine Subjective - Subjective Patient seen and examined:: with staff, chart reviewed Patient is:: awake, verbal, interactive, in bed, denies any new complaints, confused Per staff patient has:: no adverse event, no episodes of fall, tolerating meds Internal Medicine Objective - Results Result Diagrams: 11/03/18 10:20 11/03/18 10:20 Recent Labs: Laboratory Last Values WBC 5.6 Th/cmm (4.8-10.8) 11/03/18 10:20 RBC 4.13 Mil/cmm (3.80-5.20) 11/03/18 10:20 Hgb 11.7 gm/dL (12-16) L 11/03/18 10:20 Hct 34.6 % (41.0-60) L 11/03/18 10:20 MCV 83.8 fl (81-100) 11/03/18 10:20 MCH 28.2 pg (27.0-31.0) 11/03/18 10:20 MCHC Differential 33.7 pg (28.0-36.0) 11/03/18 10:20 RDW 12.2 % (11.5-20.0) 11/03/18 10:20 Plt Count 312 Th/cmm (150-400) 11/03/18 10:20 MPV 7.4 fl 11/03/18 10:20 Neutrophils % 55.4 % (40.0-80.0) 11/03/18 10:20 Lymphocytes % 32.0 % (20.0-50.0) 11/03/18 10:20 Monocytes % 11.0 % (2.0-10.0) H 11/03/18 10:20 Eosinophils % 1.5 % (0.0-5.0) 11/03/18 10:20 Basophils % 0.1 % (0.0-2.0) 11/03/18 10:20 PT 10.2 SECONDS (9.5-11.5) 11/03/18 10:20 INR 0.98 (0.5-1.4) 11/03/18 10:20 PTT (Actin FS) 26.1 SECONDS (26.0-38.0) 11/03/18 10:20 Sodium 128 mEq/L (136-145) L 11/03/18 10:20 Potassium 4.2 mEq/L (3.5-5.1) 11/03/18 10:20 Chloride 95 mEq/L (98-107) L 11/03/18 10:20 Carbon Dioxide 26.1 mEq/L (21.0-31.0) 11/03/18 10:20 Anion Gap 11.1 (7.0-16.0) 11/03/18 10:20 BUN 8 mg/dL (7-25) 11/03/18 10:20 Creatinine 0.5 mg/dL (0.6-1.2) L 11/03/18 10:20 Est GFR ( Amer) TNP 11/03/18 10:20 Est GFR (Non-Af Amer) TNP 11/03/18 10:20 BUN/Creatinine Ratio 16.0 11/03/18 10:20 Glucose 119 mg/dL (70-105) H 11/03/18 10:20 POC Glucose 174 MG/DL (70 - 105) H 11/04/18 12:15 Calcium 9.5 mg/dL (8.6-10.3) 11/03/18 10:20 Total Bilirubin 0.4 mg/dL (0.3-1.0) 11/03/18 10:20 AST 17 U/L (13-39) 11/03/18 10:20 ALT 14 U/L (7-52) 11/03/18 10:20 Alkaline Phosphatase 81 U/L (34-104) 11/03/18 10:20 Total Protein 7.0 gm/dL (6.0-8.3) 11/03/18 10:20 Albumin 4.0 gm/dL (3.7-5.3) 11/03/18 10:20 Globulin 3.0 gm/dL 11/03/18 10:20 Albumin/Globulin Ratio 1.3 (1.0-1.8) 11/03/18 10:20 Triglycerides 74 mg/dL (<150) 11/03/18 10:20 Cholesterol 122 mg/dL (<200) 11/03/18 10:20 LDL Cholesterol Direct 56 mg/dL (75-193) L 11/03/18 10:20 HDL Cholesterol 52 mg/dL (23-92) 11/03/18 10:20 - Physical Exam Vitals and I&O: Vital Signs Temp 98.4 F 11/06/18 05:19 Pulse 85 11/06/18 09:03 Resp 20 11/06/18 05:19 BP 142/78 11/06/18 09:03 Pulse Ox 97 11/06/18 05:19 Intake & Output 11/05/18 11/06/18 11/06/18 18:59 06:59 18:59 Intake Total 240 Balance 240 Intake: Oral 240 Other: # Voids 2 Active Medications: Current Medications Acetaminophen (Tylenol) 650 mg PO Q4HR PRN PRN Reason: Mild Pain / Temp above 100 Stop: 01/02/19 14:46 Last Admin: 11/05/18 17:12 Dose: 650 mg Al Hydrox/Mg Hydrox/Simethicone (Maalox) 30 ml PO Q4HR PRN PRN Reason: GI DISTRESS Stop: 01/02/19 14:46 Atorvastatin Calcium (Lipitor) 20 mg PO HS NICOLE Stop: 01/02/19 20:59 Last Admin: 11/05/18 21:03 Dose: 20 mg Chlorpromazine (Thorazine) 50 mg PO DAILY NICOLE Stop: 01/03/19 10:44 Last Admin: 11/06/18 09:02 Dose: 50 mg Divalproex Sodium (Depakote Er) 250 mg PO Q12HR NICOLE; Protocol Stop: 01/03/19 20:59 Last Admin: 11/06/18 09:03 Dose: 250 mg Levothyroxine Sodium (Synthroid) 0.112 mg PO QDAC NICOLE Stop: 01/03/19 07:29 Last Admin: 11/06/18 06:51 Dose: 0.112 mg Lisinopril (Zestril) 20 mg PO DAILY NICOLE Stop: 01/03/19 08:59 Last Admin: 11/06/18 09:03 Dose: 20 mg Lorazepam (Ativan) 0.5 mg PO Q4HR PRN; Protocol PRN Reason: Agitation Stop: 01/02/19 14:50 Last Admin: 11/05/18 17:13 Dose: 0.5 mg Magnesium Hydroxide (Milk Of Magnesia) 30 ml PO HS PRN PRN Reason: Constipation Metoprolol Tartrate (Lopressor) 25 mg PO DAILY NICOLE Stop: 01/03/19 08:59 Last Admin: 08/20/19 09:03 Dose: 25 mg Multivitamins/Vitamin C (Theragran) 1 tab PO DAILY NICOLE Stop: 01/03/19 08:59 Last Admin: 11/06/18 09:03 Dose: 1 tab Olanzapine (Zyprexa) 2.5 mg PO HS NICOLE; Protocol Stop: 01/05/19 20:59 Sodium Chloride (Nacl Tab) 1 gm PO TID NICOLE Stop: 01/02/19 13:59 Last Admin: 11/06/18 09:03 Dose: 1 gm Zolpidem Tartrate (Ambien) 5 mg PO HS PRN PRN Reason: Insomnia Stop: 01/02/19 14:46 Last Admin: 11/05/18 21:04 Dose: 5 mg General: demented, disheveled HEENT: NC/AT, PERRLA Neck: Supple, No JVD Lungs: CTAB Cardiovascular: RRR, Normal S1, Normal S2, with murmur Abdomen: soft, non-tender, globular, non-distended, positive bowel sound Extremities: excoriation Neurological: no change, disorganized - Procedures Procedures: Procedures Procedure Code Date APPENDECTOMY ADD-ON 13972 08/04/15 BYPASS TRANSVERSE COLON TO CUTANEOUS, OPEN APPROACH [id number] 08/04/15 COLOSTOMY 69014 08/04/15 EXCISION OF LARGE INTESTINE, OPEN APPROACH [id number] 08/04/15 GROUP PSYCHOTHERAPY 70109 07/31/15 GROUP PSYCHOTHERAPY GZHZZZZ 07/31/15 GROUP PSYCHOTHERAPY 71465 04/02/15 GROUP PSYCHOTHERAPY GZHZZZZ 04/02/15 OTHER GROUP THERAPY 94.44 11/07/14 PARTIAL REMOVAL OF COLON 33016 08/04/15 RECREATIONAL THERAPY 93.81 02/21/10 RESECTION OF APPENDIX, OPEN APPROACH [id number] 08/04/15 Internal Medicine Assmt/Plan - Assessment Assessment: ASSESSMENT: 1. Hypertension. 2. Hypothyroidism. 3. Dementia. 4. 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 5. Anemia. 6. Hyponatremia. 7. Hypercholesterolemia. multiple abrasion, skin excoriation - Plan Plan: skin care cxr noted, will compare with other cxr PLAN: We will correct electrolyte abnormalities. Continue on current antihypertensive medication. Continue Synthroid. We will monitor hemoglobin and hematocrit. We will continue to monitor the patient closely Nutritional Asmnt/Malnutr-PDOC - Dietary Evaluation Malnutrition Findings (Please click <Entered> for more info): Nutritional Asmnt/Malnutrition Start: 11/05/18 15: 53 Text: Status: Complete Freq: Protocol: Document 11/05/18 15:54 AUSTEN (Rec: 11/05/18 15:58 AUSTEN [email or web address]) Nutritional Asmnt/Malnutrition Patient General Information Nutritional Screening Moderate Risk Diagnosis Psychosis Pertinent Medical Hx/Surgical Hx HTN, CAD, CHF, Dyslipidemia, Thyroid disorder, Dementia, Arthritis, Anemia, Hypercholesterolemia, Psych disorder, status post colostomy secondary to rectal prolapse correction Subjective Information Pt is a 78-year-old female from [facility] admitted on 11/03 c/o agitated behavior. Per Meal/Nutrition Activity Record, Pt PO intake 100% since admission. HT: 53 WT: 153 LB (69.54 kg) ADJ BW: 59.26 kg BMI: 27.10 (Overweight) GI: WNL, Soft, Non-Tender BM: Not Noted I/O: 240/Not Noted Skin: Area of concern Fabrizio: 19 Diet Order: Pureed Estimated Energy Needs: ( Overweight, ADJ BW) 7903-9819 kcals (20-25kcals/kg ) 47-53 g Pro (0.8-0.9 g/kg) 9655-7529 ml (25-30 ml/kg) Pt PO intake 100% meals Per Meal/Nutrition Activity Record . Dietary is currently providing an estimated 1521 kcals and 67 gm Pro to meet 100% kcal and 100+% Pro needs. Current Diet Order/ Nutrition Support Pureed Pertinent Medications Maalox (PRN), Lipitor, Synthroid, MOM (PRN), Lopressor, Theragran, Nacl Tab Pertinent Labs 11/04: POC Glucose 174 11/03: Hgb/Hct 11.7/34.6, Na 128, BUN/Cr 8/0.5, Glucose 119 Nutritional Hx/Data Height 1.6 m Height (Calculated Centimeters) 160.0 Current Weight (lbs) 69.4 kg Weight (Calculated Kilograms) 69.4 Weight (Calculated Grams) 53558.6 [place] Body Weight 52.4 kg % [place] Body Weight 133 Body Mass Index (BMI) 27.1 Weight Status Overweight GI Symptoms GI Symptoms None Last BM Not Noted Skin Integrity/Comment: Area of concern Fabrizio: 19 Current %PO Good (75-100%) Estimated Nutritional Goals BEE in Kcals: Adj wt of IBW Calories/Kcals/Kg 20-25 Kcals Calculated 1885-9045 Protein: Adj wt of IBW Protein g/k.8-0.9 Protein Calculated 47-53 Fluid: ml 4549-1878 ml (25-30 ml/kg) Nutritional Problem No current Nutrition Prob Problem N/A Etiology N/A Signs/Symptoms: N/A Malnutrition Related to Morbid Obesity Malnutrition related to morbid obesity No Intervention/Recommendation Comments 1.Continue with Pureed diet as ordered. Expected Outcomes/Goals Expected Outcomes/Goals 1.PO intake to continue to meet 75% of nutritional needs. 2.Monitor PO intake, wt, nutrition related labs, and skin integrity. 3.F/U as low risk in 7 days,
[2018-11-06] MEDS: Atorvastatin Calcium 10 MG TAB PO SCH (20:03)
--- NOTE | 2018-11-07 | Progress Notes ---
DATE: 11/06/2018 SUBJECTIVE: Case was discussed with staff of the patient, reviewed records. The patient continues to be unpredictable, impulsive, picking on her wound, bringing out blood, showing it to other patients. She continues to need redirection. She has very poor insight. I will be adding Zyprexa to her medication to help improve her behavior and erratic psychotic behavior, I will start her on 2.5 mg at bedtime. Discussed side effects, very hard to redirect. We will continue to work with the patient in group therapy, milieu therapy, and adjust the medications as needed. JOB# [id number]
[2018-11-07] MEDS: Levothyroxine 0.112 Mg Tab PO SCH (06:32)
[2018-11-07] MEDS: Multivitamin Tab PO SCH (09:17)
--- NOTE | 2018-11-07 12:21 | Internal Medicine Prog Note ---
Internal Medicine Subjective - Subjective Patient seen and examined:: with staff, chart reviewed Patient is:: awake, verbal, interactive, in bed, denies any new complaints, confused Per staff patient has:: no adverse event, no episodes of fall, tolerating meds Internal Medicine Objective - Results Result Diagrams: 11/03/18 10:20 11/03/18 10:20 Recent Labs: Laboratory Last Values WBC 5.6 Th/cmm (4.8-10.8) 11/03/18 10:20 RBC 4.13 Mil/cmm (3.80-5.20) 11/03/18 10:20 Hgb 11.7 gm/dL (12-16) L 11/03/18 10:20 Hct 34.6 % (41.0-60) L 11/03/18 10:20 MCV 83.8 fl (81-100) 11/03/18 10:20 MCH 28.2 pg (27.0-31.0) 11/03/18 10:20 MCHC Differential 33.7 pg (28.0-36.0) 11/03/18 10:20 RDW 12.2 % (11.5-20.0) 11/03/18 10:20 Plt Count 312 Th/cmm (150-400) 11/03/18 10:20 MPV 7.4 fl 11/03/18 10:20 Neutrophils % 55.4 % (40.0-80.0) 11/03/18 10:20 Lymphocytes % 32.0 % (20.0-50.0) 11/03/18 10:20 Monocytes % 11.0 % (2.0-10.0) H 11/03/18 10:20 Eosinophils % 1.5 % (0.0-5.0) 11/03/18 10:20 Basophils % 0.1 % (0.0-2.0) 11/03/18 10:20 PT 10.2 SECONDS (9.5-11.5) 11/03/18 10:20 INR 0.98 (0.5-1.4) 11/03/18 10:20 PTT (Actin FS) 26.1 SECONDS (26.0-38.0) 11/03/18 10:20 Sodium 128 mEq/L (136-145) L 11/03/18 10:20 Potassium 4.2 mEq/L (3.5-5.1) 11/03/18 10:20 Chloride 95 mEq/L (98-107) L 11/03/18 10:20 Carbon Dioxide 26.1 mEq/L (21.0-31.0) 11/03/18 10:20 Anion Gap 11.1 (7.0-16.0) 11/03/18 10:20 BUN 8 mg/dL (7-25) 11/03/18 10:20 Creatinine 0.5 mg/dL (0.6-1.2) L 11/03/18 10:20 Est GFR ( Amer) TNP 11/03/18 10:20 Est GFR (Non-Af Amer) TNP 11/03/18 10:20 BUN/Creatinine Ratio 16.0 11/03/18 10:20 Glucose 119 mg/dL (70-105) H 11/03/18 10:20 POC Glucose 174 MG/DL (70 - 105) H 11/04/18 12:15 Calcium 9.5 mg/dL (8.6-10.3) 11/03/18 10:20 Total Bilirubin 0.4 mg/dL (0.3-1.0) 11/03/18 10:20 AST 17 U/L (13-39) 11/03/18 10:20 ALT 14 U/L (7-52) 11/03/18 10:20 Alkaline Phosphatase 81 U/L (34-104) 11/03/18 10:20 Total Protein 7.0 gm/dL (6.0-8.3) 11/03/18 10:20 Albumin 4.0 gm/dL (3.7-5.3) 11/03/18 10:20 Globulin 3.0 gm/dL 11/03/18 10:20 Albumin/Globulin Ratio 1.3 (1.0-1.8) 11/03/18 10:20 Triglycerides 74 mg/dL (<150) 11/03/18 10:20 Cholesterol 122 mg/dL (<200) 11/03/18 10:20 LDL Cholesterol Direct 56 mg/dL (75-193) L 11/03/18 10:20 HDL Cholesterol 52 mg/dL (23-92) 11/03/18 10:20 - Physical Exam Vitals and I&O: Vital Signs Temp 97.8 F 11/07/18 04:47 Pulse 82 11/07/18 09:15 Resp 18 11/07/18 04:47 BP 128/80 11/07/18 09:15 Pulse Ox 97 11/07/18 04:47 Intake & Output 11/06/18 11/07/18 11/07/18 18:59 06:59 18:59 Intake Total 1080 480 Balance 1080 480 Intake: Oral 1080 480 Other: # Voids 4 2 # Bowel Movements 1 Stool Characteristics Soft Liquid Active Medications: Current Medications Acetaminophen (Tylenol) 650 mg PO Q4HR PRN PRN Reason: Mild Pain / Temp above 100 Stop: 01/02/19 14:46 Last Admin: 11/05/18 17:12 Dose: 650 mg Al Hydrox/Mg Hydrox/Simethicone (Maalox) 30 ml PO Q4HR PRN PRN Reason: GI DISTRESS Stop: 01/02/19 14:46 Atorvastatin Calcium (Lipitor) 20 mg PO HS NICOLE Stop: 01/02/19 20:59 Last Admin: 11/06/18 20:03 Dose: 20 mg Chlorpromazine (Thorazine) 50 mg PO DAILY NICOLE Stop: 01/03/19 10:44 Last Admin: 11/07/18 09:15 Dose: 50 mg Divalproex Sodium (Depakote Er) 250 mg PO Q12HR NICOLE; Protocol Stop: 01/03/19 20:59 Last Admin: 11/07/18 09:18 Dose: 250 mg Levothyroxine Sodium (Synthroid) 0.112 mg PO QDAC NICOLE Stop: 01/03/19 07:29 Last Admin: 11/07/18 06:32 Dose: 0.112 mg Lisinopril (Zestril) 20 mg PO DAILY NICOLE Stop: 01/03/19 08:59 Last Admin: 11/07/18 09:15 Dose: 20 mg Lorazepam (Ativan) 0.5 mg PO Q4HR PRN; Protocol PRN Reason: Agitation Stop: 01/02/19 14:50 Last Admin: 11/06/18 20:03 Dose: 0.5 mg Magnesium Hydroxide (Milk Of Magnesia) 30 ml PO HS PRN PRN Reason: Constipation Metoprolol Tartrate (Lopressor) 25 mg PO DAILY NICOLE Stop: 01/03/19 08:59 Last Admin: 11/06/18 09:03 Dose: 25 mg Multivitamins/Vitamin C (Theragran) 1 tab PO DAILY NICOLE Stop: 01/03/19 08:59 Last Admin: 11/07/18 09:17 Dose: 1 tab Olanzapine (Zyprexa) 2.5 mg PO HS NICOLE; Protocol Stop: 01/05/19 20:59 Last Admin: 11/06/18 21:00 Dose: 2.5 mg Sodium Chloride (Nacl Tab) 1 gm PO TID NICOLE Stop: 01/02/19 13:59 Last Admin: 11/07/18 09:17 Dose: 1 gm Zolpidem Tartrate (Ambien) 5 mg PO HS PRN PRN Reason: Insomnia Stop: 01/02/19 14:46 Last Admin: 11/05/18 21:04 Dose: 5 mg General: demented, disheveled HEENT: NC/AT, PERRLA Neck: Supple, No JVD Lungs: CTAB Cardiovascular: RRR, Normal S1, Normal S2, with murmur Abdomen: soft, non-tender, globular, non-distended, positive bowel sound Extremities: excoriation Neurological: no change, disorganized - Procedures Procedures: Procedures Procedure Code Date APPENDECTOMY ADD-ON 73232 08/04/15 BYPASS TRANSVERSE COLON TO CUTANEOUS, OPEN APPROACH [id number] 08/04/15 COLOSTOMY 12378 08/04/15 EXCISION OF LARGE INTESTINE, OPEN APPROACH [id number] 08/04/15 GROUP PSYCHOTHERAPY 37780 07/31/15 GROUP PSYCHOTHERAPY GZHZZZZ 07/31/15 GROUP PSYCHOTHERAPY 04131 04/02/15 GROUP PSYCHOTHERAPY GZHZZZZ 04/02/15 OTHER GROUP THERAPY 94.44 11/07/14 PARTIAL REMOVAL OF COLON 40986 08/04/15 RECREATIONAL THERAPY 93.81 02/21/10 RESECTION OF APPENDIX, OPEN APPROACH [id number] 08/04/15 Internal Medicine Assmt/Plan - Assessment Assessment: ASSESSMENT: 1. Hypertension. 2. Hypothyroidism. 3. Dementia. 4. 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 5. Anemia. 6. Hyponatremia. 7. Hypercholesterolemia. multiple abrasion, skin excoriation - Plan Plan: skin care cxr noted, will compare with other cxr PLAN: We will correct electrolyte abnormalities. Continue on current antihypertensive medication. Continue Synthroid. We will monitor hemoglobin and hematocrit. We will continue to monitor the patient closely Nutritional Asmnt/Malnutr-PDOC - Dietary Evaluation Malnutrition Findings (Please click <Entered> for more info): Nutritional Asmnt/Malnutrition Start: 11/05/18 15: 53 Text: Status: Complete Freq: Protocol: Document 11/05/18 15:54 AUSTEN (Rec: 11/05/18 15:58 AUSTEN [email or web address]) Nutritional Asmnt/Malnutrition Patient General Information Nutritional Screening Moderate Risk Diagnosis Psychosis Pertinent Medical Hx/Surgical Hx HTN, CAD, CHF, Dyslipidemia, Thyroid disorder, Dementia, Arthritis, Anemia, Hypercholesterolemia, Psych disorder, status post colostomy secondary to rectal prolapse correction Subjective Information Pt is a 78-year-old [facility] c/o agitated behavior. Per Meal/Nutrition Activity Record, Pt PO intake 100% since admission. HT: 53 WT: 153 LB (69.54 kg) ADJ BW: 59.26 kg BMI: 27.10 (Overweight) GI: WNL, Soft, Non-Tender BM: Not Noted I/O: 240/Not Noted Skin: Area of concern Fabrizio: 19 Diet Order: Pureed Estimated Energy Needs: ( Overweight, ADJ BW) 7629-8833 kcals (20-25kcals/kg ) 47-53 g Pro (0.8-0.9 g/kg) 6363-7758 ml (25-30 ml/kg) Pt PO intake 100% meals Per Meal/Nutrition Activity Record . Dietary is currently providing an estimated 1521 kcals and 67 gm Pro to meet 100% kcal and 100+% Pro needs. Current Diet Order/ Nutrition Support Pureed Pertinent Medications Maalox (PRN), Lipitor, Synthroid, MOM (PRN), Lopressor, Theragran, Nacl Tab Pertinent Labs 11/04: POC Glucose 174 11/03: Hgb/Hct 11.7/34.6, Na 128, BUN/Cr 8/0.5, Glucose 119 Nutritional Hx/Data Height 1.6 m Height (Calculated Centimeters) 160.0 Current Weight (lbs) 69.4 kg Weight (Calculated Kilograms) 69.4 Weight (Calculated Grams) 80778.6 [place] Body Weight 52.4 kg % [place] Body Weight 133 Body Mass Index (BMI) 27.1 Weight Status Overweight GI Symptoms GI Symptoms None Last BM Not Noted Skin Integrity/Comment: Area of concern Fabrizio: 19 Current %PO Good (75-100%) Estimated Nutritional Goals BEE in Kcals: Adj wt of IBW Calories/Kcals/Kg 20-25 Kcals Calculated 7424-1392 Protein: Adj wt of IBW Protein g/k.8-0.9 Protein Calculated 47-53 Fluid: ml 7675-6416 ml (25-30 ml/kg) Nutritional Problem No current Nutrition Prob Problem N/A Etiology N/A Signs/Symptoms: N/A Malnutrition Related to Morbid Obesity Malnutrition related to morbid obesity No Intervention/Recommendation Comments 1.Continue with Pureed diet as ordered. Expected Outcomes/Goals Expected Outcomes/Goals 1.PO intake to continue to meet 75% of nutritional needs. 2.Monitor PO intake, wt, nutrition related labs, and skin integrity. 3.F/U as low risk in 7 days,
--- NOTE | 2018-11-07 16:14 | Progress Notes ---
DATE: 11/07/2018 Case was discussed with staff of the patient, reviewed records. The patient was initiated on Zyprexa yesterday. She continues to be unpredictable, impulsive, rambling speech, unable to make safe plan for self-care, unpredictable, impulsive, needing redirection. Depakote level is pending. She has high blood sugar. CBC with high monocyte and low hemoglobin and hematocrit, the rest within normal range. Chemistry panel with low creatinine, the rest within normal range. Lipid panel with low LDL cholesterol. We will be checking her Depakote level. We will continue to work with the patient in group therapy, milieu therapy, and adjust the medication as needed. JOB# [id number]
[2018-11-07] MEDS: Atorvastatin Calcium 10 MG TAB PO SCH (20:48)
[2018-11-08] MEDS: Levothyroxine 0.112 Mg Tab PO SCH (06:45)
[2018-11-08] MEDS: Multivitamin Tab PO SCH (08:42)
--- NOTE | 2018-11-08 12:27 | Internal Medicine Prog Note ---
Internal Medicine Subjective - Subjective Patient seen and examined:: with staff, chart reviewed Patient is:: awake, verbal, interactive, in bed, denies any new complaints, confused Per staff patient has:: no adverse event, no episodes of fall, tolerating meds Internal Medicine Objective - Results Result Diagrams: 11/03/18 10:20 11/03/18 10:20 Recent Labs: Laboratory Last Values WBC 5.6 Th/cmm (4.8-10.8) 11/03/18 10:20 RBC 4.13 Mil/cmm (3.80-5.20) 11/03/18 10:20 Hgb 11.7 gm/dL (12-16) L 11/03/18 10:20 Hct 34.6 % (41.0-60) L 11/03/18 10:20 MCV 83.8 fl (81-100) 11/03/18 10:20 MCH 28.2 pg (27.0-31.0) 11/03/18 10:20 MCHC Differential 33.7 pg (28.0-36.0) 11/03/18 10:20 RDW 12.2 % (11.5-20.0) 11/03/18 10:20 Plt Count 312 Th/cmm (150-400) 11/03/18 10:20 MPV 7.4 fl 11/03/18 10:20 Neutrophils % 55.4 % (40.0-80.0) 11/03/18 10:20 Lymphocytes % 32.0 % (20.0-50.0) 11/03/18 10:20 Monocytes % 11.0 % (2.0-10.0) H 11/03/18 10:20 Eosinophils % 1.5 % (0.0-5.0) 11/03/18 10:20 Basophils % 0.1 % (0.0-2.0) 11/03/18 10:20 PT 10.2 SECONDS (9.5-11.5) 11/03/18 10:20 INR 0.98 (0.5-1.4) 11/03/18 10:20 PTT (Actin FS) 26.1 SECONDS (26.0-38.0) 11/03/18 10:20 Sodium 128 mEq/L (136-145) L 11/03/18 10:20 Potassium 4.2 mEq/L (3.5-5.1) 11/03/18 10:20 Chloride 95 mEq/L (98-107) L 11/03/18 10:20 Carbon Dioxide 26.1 mEq/L (21.0-31.0) 11/03/18 10:20 Anion Gap 11.1 (7.0-16.0) 11/03/18 10:20 BUN 8 mg/dL (7-25) 11/03/18 10:20 Creatinine 0.5 mg/dL (0.6-1.2) L 11/03/18 10:20 Est GFR ( Amer) TNP 11/03/18 10:20 Est GFR (Non-Af Amer) TNP 11/03/18 10:20 BUN/Creatinine Ratio 16.0 11/03/18 10:20 Glucose 119 mg/dL (70-105) H 11/03/18 10:20 POC Glucose 174 MG/DL (70 - 105) H 11/04/18 12:15 Calcium 9.5 mg/dL (8.6-10.3) 11/03/18 10:20 Total Bilirubin 0.4 mg/dL (0.3-1.0) 11/03/18 10:20 AST 17 U/L (13-39) 11/03/18 10:20 ALT 14 U/L (7-52) 11/03/18 10:20 Alkaline Phosphatase 81 U/L (34-104) 11/03/18 10:20 Total Protein 7.0 gm/dL (6.0-8.3) 11/03/18 10:20 Albumin 4.0 gm/dL (3.7-5.3) 11/03/18 10:20 Globulin 3.0 gm/dL 11/03/18 10:20 Albumin/Globulin Ratio 1.3 (1.0-1.8) 11/03/18 10:20 Triglycerides 74 mg/dL (<150) 11/03/18 10:20 Cholesterol 122 mg/dL (<200) 11/03/18 10:20 LDL Cholesterol Direct 56 mg/dL (75-193) L 11/03/18 10:20 HDL Cholesterol 52 mg/dL (23-92) 11/03/18 10:20 - Physical Exam Vitals and I&O: Vital Signs Temp 97.5 F 11/08/18 06:00 Pulse 95 11/08/18 08:43 Resp 18 11/08/18 06:00 BP 148/91 11/08/18 08:43 Pulse Ox 97 11/08/18 06:00 Intake & Output 11/07/18 11/08/18 11/08/18 18:59 06:59 18:59 Intake Total 1480 Balance 1480 Intake: Oral 740 Other 740 Other: # Voids 3 # Bowel Movements 1 Stool Characteristics Soft Liquid Active Medications: Current Medications Acetaminophen (Tylenol) 650 mg PO Q4HR PRN PRN Reason: Mild Pain / Temp above 100 Stop: 01/02/19 14:46 Last Admin: 11/05/18 17:12 Dose: 650 mg Al Hydrox/Mg Hydrox/Simethicone (Maalox) 30 ml PO Q4HR PRN PRN Reason: GI DISTRESS Stop: 01/02/19 14:46 Atorvastatin Calcium (Lipitor) 20 mg PO HS NICOLE Stop: 01/02/19 20:59 Last Admin: 11/07/18 20:48 Dose: 20 mg Chlorpromazine (Thorazine) 50 mg PO DAILY NICOLE Stop: 01/03/19 10:44 Last Admin: 11/08/18 08:43 Dose: 50 mg Divalproex Sodium (Depakote Er) 250 mg PO Q12HR NICOLE; Protocol Stop: 01/03/19 20:59 Last Admin: 11/08/18 08:42 Dose: 250 mg Levothyroxine Sodium (Synthroid) 0.112 mg PO QDAC NICOLE Stop: 01/03/19 07:29 Last Admin: 11/08/18 06:45 Dose: 0.112 mg Lisinopril (Zestril) 20 mg PO DAILY NICOLE Stop: 01/03/19 08:59 Last Admin: 11/08/18 08:43 Dose: 20 mg Lorazepam (Ativan) 0.5 mg PO Q4HR PRN; Protocol PRN Reason: Agitation Stop: 01/02/19 14:50 Last Admin: 11/07/18 18:05 Dose: 0.5 mg Magnesium Hydroxide (Milk Of Magnesia) 30 ml PO HS PRN PRN Reason: Constipation Metoprolol Tartrate (Lopressor) 25 mg PO DAILY NICOLE Stop: 01/03/19 08:59 Last Admin: 11/08/18 08:42 Dose: 25 mg Multivitamins/Vitamin C (Theragran) 1 tab PO DAILY NICOLE Stop: 01/03/19 08:59 Last Admin: 11/08/18 08:42 Dose: 1 tab Olanzapine (Zyprexa) 2.5 mg PO HS NICOLE; Protocol Stop: 01/05/19 20:59 Last Admin: 11/07/18 20:48 Dose: 2.5 mg Sodium Chloride (Nacl Tab) 1 gm PO TID NICOLE Stop: 01/02/19 13:59 Last Admin: 11/08/18 08:42 Dose: 1 gm Zolpidem Tartrate (Ambien) 5 mg PO HS PRN PRN Reason: Insomnia Stop: 01/02/19 14:46 Last Admin: 11/05/18 21:04 Dose: 5 mg General: demented, disheveled HEENT: NC/AT, PERRLA Neck: Supple, No JVD Lungs: CTAB Cardiovascular: RRR, Normal S1, Normal S2, with murmur Abdomen: soft, non-tender, globular, non-distended, positive bowel sound Extremities: excoriation Neurological: no change, disorganized - Procedures Procedures: Procedures Procedure Code Date APPENDECTOMY ADD-ON 02947 08/04/15 BYPASS TRANSVERSE COLON TO CUTANEOUS, OPEN APPROACH [id number] 08/04/15 COLOSTOMY 74760 08/04/15 EXCISION OF LARGE INTESTINE, OPEN APPROACH [id number] 08/04/15 GROUP PSYCHOTHERAPY 55484 07/31/15 GROUP PSYCHOTHERAPY GZHZZZZ 07/31/15 GROUP PSYCHOTHERAPY 26402 04/02/15 GROUP PSYCHOTHERAPY GZHZZZZ 04/02/15 OTHER GROUP THERAPY 94.44 11/07/14 PARTIAL REMOVAL OF COLON 83452 08/04/15 RECREATIONAL THERAPY 93.81 02/21/10 RESECTION OF APPENDIX, OPEN APPROACH 0AME0IL 08/04/15 Internal Medicine Assmt/Plan - Assessment Assessment: ASSESSMENT: 1. Hypertension. 2. Hypothyroidism. 3. Dementia. 4. 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 5. Anemia. 6. Hyponatremia. 7. Hypercholesterolemia. multiple abrasion, skin excoriation - Plan Plan: skin care cxr noted, will compare with other cxr PLAN: We will correct electrolyte abnormalities. Continue on current antihypertensive medication. Continue Synthroid. We will monitor hemoglobin and hematocrit. We will continue to monitor the patient closely Nutritional Asmnt/Malnutr-PDOC - Dietary Evaluation Malnutrition Findings (Please click <Entered> for more info): Nutritional Asmnt/Malnutrition Start: 11/05/18 15: 53 Text: Status: Complete Freq: Protocol: Document 11/05/18 15:54 AUSTEN (Rec: 11/05/18 15:58 AUSTEN [email or web address]) Nutritional Asmnt/Malnutrition Patient General Information Nutritional Screening Moderate Risk Diagnosis Psychosis Pertinent Medical Hx/Surgical Hx HTN, CAD, CHF, Dyslipidemia, Thyroid disorder, Dementia, Arthritis, Anemia, Hypercholesterolemia, Psych disorder, status post colostomy secondary to rectal prolapse correction Subjective Information Pt is a 78-year-old female from [facility] admitted on 11/03 c/o agitated behavior. Per Meal/Nutrition Activity Record, Pt PO intake 100% since admission. HT: 53 WT: 153 LB (69.54 kg) ADJ BW: 59.26 kg BMI: 27.10 (Overweight) GI: WNL, Soft, Non-Tender BM: Not Noted I/O: 240/Not Noted Skin: Area of concern Fabrizio: 19 Diet Order: Pureed Estimated Energy Needs: ( Overweight, ADJ BW) 1920-0259 kcals (20-25kcals/kg ) 47-53 g Pro (0.8-0.9 g/kg) 7735-7907 ml (25-30 ml/kg) Pt PO intake 100% meals Per Meal/Nutrition Activity Record . Dietary is currently providing an estimated 1521 kcals and 67 gm Pro to meet 100% kcal and 100+% Pro needs. Current Diet Order/ Nutrition Support Pureed Pertinent Medications Maalox (PRN), Lipitor, Synthroid, MOM (PRN), Lopressor, Theragran, Nacl Tab Pertinent Labs 11/04: POC Glucose 174 11/03: Hgb/Hct 11.7/34.6, Na 128, BUN/Cr 8/0.5, Glucose 119 Nutritional Hx/Data Height 1.6 m Height (Calculated Centimeters) 160.0 Current Weight (lbs) 69.4 kg Weight (Calculated Kilograms) 69.4 Weight (Calculated Grams) 56431.6 [place] Body Weight 52.4 kg % [place] Body Weight 133 Body Mass Index (BMI) 27.1 Weight Status Overweight GI Symptoms GI Symptoms None Last BM Not Noted Skin Integrity/Comment: Area of concern Fabrizio: 19 Current %PO Good (75-100%) Estimated Nutritional Goals BEE in Kcals: Adj wt of IBW Calories/Kcals/Kg 20-25 Kcals Calculated 4266-7624 Protein: Adj wt of IBW Protein g/k.8-0.9 Protein Calculated 47-53 Fluid: ml 7504-2119 ml (25-30 ml/kg) Nutritional Problem No current Nutrition Prob Problem N/A Etiology N/A Signs/Symptoms: N/A Malnutrition Related to Morbid Obesity Malnutrition related to morbid obesity No Intervention/Recommendation Comments 1.Continue with Pureed diet as ordered. Expected Outcomes/Goals Expected Outcomes/Goals 1.PO intake to continue to meet 75% of nutritional needs. 2.Monitor PO intake, wt, nutrition related labs, and skin integrity. 3.F/U as low risk in 7 days,
--- NOTE | 2018-11-08 13:45 | Progress Notes ---
DATE: 11/08/2018 SUBJECTIVE: Case was discussed with staff of the patient, reviewed records. The patient is starting to get a bit calmer. She is not scratching herself as much. She continues to have poor insight in general, rambling speech, unable to make safe plan for self-care. No side effects with the medication, no sedation, no nausea, no extrapyramidal symptoms. We will continue outpatient group therapy, milieu therapy, and adjust medications as needed. [facility]# [id number]
[2018-11-08] MEDS: Atorvastatin Calcium 10 MG TAB PO SCH (21:02)
[2018-11-09] MEDS: Levothyroxine 0.112 Mg Tab PO SCH (06:44)
[2018-11-09] MEDS: Multivitamin Tab PO SCH (09:04)
--- NOTE | 2018-11-09 12:22 | Internal Medicine Prog Note ---
Internal Medicine Subjective - Subjective Patient seen and examined:: with staff, chart reviewed Patient is:: awake, verbal, interactive, in bed, denies any new complaints, confused Per staff patient has:: no adverse event, no episodes of fall, tolerating meds Internal Medicine Objective - Results Result Diagrams: 11/03/18 10:20 11/03/18 10:20 Recent Labs: Laboratory Last Values WBC 5.6 Th/cmm (4.8-10.8) 11/03/18 10:20 RBC 4.13 Mil/cmm (3.80-5.20) 11/03/18 10:20 Hgb 11.7 gm/dL (12-16) L 11/03/18 10:20 Hct 34.6 % (41.0-60) L 11/03/18 10:20 MCV 83.8 fl (81-100) 11/03/18 10:20 MCH 28.2 pg (27.0-31.0) 11/03/18 10:20 MCHC Differential 33.7 pg (28.0-36.0) 11/03/18 10:20 RDW 12.2 % (11.5-20.0) 11/03/18 10:20 Plt Count 312 Th/cmm (150-400) 11/03/18 10:20 MPV 7.4 fl 11/03/18 10:20 Neutrophils % 55.4 % (40.0-80.0) 11/03/18 10:20 Lymphocytes % 32.0 % (20.0-50.0) 11/03/18 10:20 Monocytes % 11.0 % (2.0-10.0) H 11/03/18 10:20 Eosinophils % 1.5 % (0.0-5.0) 11/03/18 10:20 Basophils % 0.1 % (0.0-2.0) 11/03/18 10:20 PT 10.2 SECONDS (9.5-11.5) 11/03/18 10:20 INR 0.98 (0.5-1.4) 11/03/18 10:20 PTT (Actin FS) 26.1 SECONDS (26.0-38.0) 11/03/18 10:20 Sodium 128 mEq/L (136-145) L 11/03/18 10:20 Potassium 4.2 mEq/L (3.5-5.1) 11/03/18 10:20 Chloride 95 mEq/L (98-107) L 11/03/18 10:20 Carbon Dioxide 26.1 mEq/L (21.0-31.0) 11/03/18 10:20 Anion Gap 11.1 (7.0-16.0) 11/03/18 10:20 BUN 8 mg/dL (7-25) 11/03/18 10:20 Creatinine 0.5 mg/dL (0.6-1.2) L 11/03/18 10:20 Est GFR ( Amer) TNP 11/03/18 10:20 Est GFR (Non-Af Amer) TNP 11/03/18 10:20 BUN/Creatinine Ratio 16.0 11/03/18 10:20 Glucose 119 mg/dL (70-105) H 11/03/18 10:20 POC Glucose 174 MG/DL (70 - 105) H 11/04/18 12:15 Calcium 9.5 mg/dL (8.6-10.3) 11/03/18 10:20 Total Bilirubin 0.4 mg/dL (0.3-1.0) 11/03/18 10:20 AST 17 U/L (13-39) 11/03/18 10:20 ALT 14 U/L (7-52) 11/03/18 10:20 Alkaline Phosphatase 81 U/L (34-104) 11/03/18 10:20 Total Protein 7.0 gm/dL (6.0-8.3) 11/03/18 10:20 Albumin 4.0 gm/dL (3.7-5.3) 11/03/18 10:20 Globulin 3.0 gm/dL 11/03/18 10:20 Albumin/Globulin Ratio 1.3 (1.0-1.8) 11/03/18 10:20 Triglycerides 74 mg/dL (<150) 11/03/18 10:20 Cholesterol 122 mg/dL (<200) 11/03/18 10:20 LDL Cholesterol Direct 56 mg/dL (75-193) L 11/03/18 10:20 HDL Cholesterol 52 mg/dL (23-92) 11/03/18 10:20 - Physical Exam Vitals and I&O: Vital Signs Temp 98.3 F 11/09/18 05:28 Pulse 87 11/09/18 09:04 Resp 19 11/09/18 08:00 BP 135/77 11/09/18 09:04 Pulse Ox 98 11/09/18 05:28 Intake & Output 11/08/18 11/09/18 11/09/18 18:59 06:59 18:59 Intake Total 1250 240 Balance 1250 240 Intake: Oral 1250 240 Other: # Voids 3 2 # Bowel Movements 0 0 Stool Characteristics Soft Soft Liquid Liquid Active Medications: Current Medications Acetaminophen (Tylenol) 650 mg PO Q4HR PRN PRN Reason: Mild Pain / Temp above 100 Stop: 01/02/19 14:46 Last Admin: 11/05/18 17:12 Dose: 650 mg Al Hydrox/Mg Hydrox/Simethicone (Maalox) 30 ml PO Q4HR PRN PRN Reason: GI DISTRESS Stop: 01/02/19 14:46 Atorvastatin Calcium (Lipitor) 20 mg PO HS NICOLE Stop: 01/02/19 20:59 Last Admin: 11/08/18 21:02 Dose: 20 mg Chlorpromazine (Thorazine) 50 mg PO DAILY NICOLE Stop: 01/03/19 10:44 Last Admin: 11/09/18 09:03 Dose: 50 mg Divalproex Sodium (Depakote Er) 250 mg PO Q12HR NICOLE; Protocol Stop: 01/03/19 20:59 Last Admin: 11/09/18 09:02 Dose: 250 mg Levothyroxine Sodium (Synthroid) 0.112 mg PO QDAC NICOLE Stop: 01/03/19 07:29 Last Admin: 11/09/18 06:44 Dose: 0.112 mg Lisinopril (Zestril) 20 mg PO DAILY NICOLE Stop: 01/03/19 08:59 Last Admin: 11/09/18 09:03 Dose: 20 mg Lorazepam (Ativan) 0.5 mg PO Q4HR PRN; Protocol PRN Reason: Agitation Stop: 01/02/19 14:50 Last Admin: 11/07/18 18:05 Dose: 0.5 mg Magnesium Hydroxide (Milk Of Magnesia) 30 ml PO HS PRN PRN Reason: Constipation Metoprolol Tartrate (Lopressor) 25 mg PO DAILY NICLOE Stop: 01/03/19 08:59 Last Admin: 11/09/18 09:04 Dose: 25 mg Multivitamins/Vitamin C (Theragran) 1 tab PO DAILY NICOLE Stop: 01/03/19 08:59 Last Admin: 11/09/18 09:04 Dose: 1 tab Olanzapine (Zyprexa) 2.5 mg PO HS NICOLE; Protocol Stop: 01/05/19 20:59 Last Admin: 11/08/18 21:03 Dose: 2.5 mg Sodium Chloride (Nacl Tab) 1 gm PO TID NICOLE Stop: 01/02/19 13:59 Last Admin: 11/09/18 09:04 Dose: 1 gm Zolpidem Tartrate (Ambien) 5 mg PO HS PRN PRN Reason: Insomnia Stop: 01/02/19 14:46 Last Admin: 11/08/18 21:03 Dose: 5 mg General: demented, disheveled HEENT: NC/AT, PERRLA Neck: Supple, No JVD Lungs: CTAB Cardiovascular: RRR, Normal S1, Normal S2, with murmur Abdomen: soft, non-tender, globular, non-distended, positive bowel sound Extremities: excoriation Neurological: no change, disorganized - Procedures Procedures: Procedures Procedure Code Date APPENDECTOMY ADD-ON 95183 08/04/15 BYPASS TRANSVERSE COLON TO CUTANEOUS, OPEN APPROACH [id number] 08/04/15 COLOSTOMY 29737 08/04/15 EXCISION OF LARGE INTESTINE, OPEN APPROACH [id number] 08/04/15 GROUP PSYCHOTHERAPY 72499 07/31/15 GROUP PSYCHOTHERAPY GZHZZZZ 07/31/15 GROUP PSYCHOTHERAPY 36229 04/02/15 GROUP PSYCHOTHERAPY GZHZZZZ 04/02/15 OTHER GROUP THERAPY 94.44 11/07/14 PARTIAL REMOVAL OF COLON 36625 08/04/15 RECREATIONAL THERAPY 93.81 02/21/10 RESECTION OF APPENDIX, OPEN APPROACH [id number] 08/04/15 Internal Medicine Assmt/Plan - Assessment Assessment: ASSESSMENT: 1. Hypertension. 2. Hypothyroidism. 3. Dementia. 4. 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 5. Anemia. 6. Hyponatremia. 7. Hypercholesterolemia. multiple abrasion, skin excoriation - Plan Plan: skin care cxr noted, will compare with other cxr PLAN: We will correct electrolyte abnormalities. Continue on current antihypertensive medication. Continue Synthroid. We will monitor hemoglobin and hematocrit. We will continue to monitor the patient closely Nutritional Asmnt/Malnutr-PDOC - Dietary Evaluation Malnutrition Findings (Please click <Entered> for more info): Nutritional Asmnt/Malnutrition Start: 11/05/18 15: 53 Text: Status: Complete Freq: Protocol: Document 11/05/18 15:54 AUSTEN (Rec: 11/05/18 15:58 AUSTEN [email or web address]) Nutritional Asmnt/Malnutrition Patient General Information Nutritional Screening Moderate Risk Diagnosis Psychosis Pertinent Medical Hx/Surgical Hx HTN, CAD, CHF, Dyslipidemia, Thyroid disorder, Dementia, Arthritis, Anemia, Hypercholesterolemia, Psych disorder, status post colostomy secondary to rectal prolapse correction Subjective Information Pt is a 78-year-old [facility] admitted on 11/03 c/o agitated behavior. Per Meal/Nutrition Activity Record, Pt PO intake 100% since admission. HT: 53 WT: 153 LB (69.54 kg) ADJ BW: 59.26 kg BMI: 27.10 (Overweight) GI: WNL, Soft, Non-Tender BM: Not Noted I/O: 240/Not Noted Skin: Area of concern Fabrizio: 19 Diet Order: Pureed Estimated Energy Needs: ( Overweight, ADJ BW) 8091-3539 kcals (20-25kcals/kg ) 47-53 g Pro (0.8-0.9 g/kg) 2867-7669 ml (25-30 ml/kg) Pt PO intake 100% meals Per Meal/Nutrition Activity Record . Dietary is currently providing an estimated 1521 kcals and 67 gm Pro to meet 100% kcal and 100+% Pro needs. Current Diet Order/ Nutrition Support Pureed Pertinent Medications Maalox (PRN), Lipitor, Synthroid, MOM (PRN), Lopressor, Theragran, Nacl Tab Pertinent Labs 11/04: POC Glucose 174 11/03: Hgb/Hct 11.7/34.6, Na 128, BUN/Cr 8/0.5, Glucose 119 Nutritional Hx/Data Height 1.6 m Height (Calculated Centimeters) 160.0 Current Weight (lbs) 69.4 kg Weight (Calculated Kilograms) 69.4 Weight (Calculated Grams) 94390.6 [place] Body Weight 52.4 kg % [place] Body Weight 133 Body Mass Index (BMI) 27.1 Weight Status Overweight GI Symptoms GI Symptoms None Last BM Not Noted Skin Integrity/Comment: Area of concern Fabrizio: 19 Current %PO Good (75-100%) Estimated Nutritional Goals BEE in Kcals: Adj wt of IBW Calories/Kcals/Kg 20-25 Kcals Calculated 1233-9602 Protein: Adj wt of IBW Protein g/k.8-0.9 Protein Calculated 47-53 Fluid: ml 8165-5063 ml (25-30 ml/kg) Nutritional Problem No current Nutrition Prob Problem N/A Etiology N/A Signs/Symptoms: N/A Malnutrition Related to Morbid Obesity Malnutrition related to morbid obesity No Intervention/Recommendation Comments 1.Continue with Pureed diet as ordered. Expected Outcomes/Goals Expected Outcomes/Goals 1.PO intake to continue to meet 75% of nutritional needs. 2.Monitor PO intake, wt, nutrition related labs, and skin integrity. 3.F/U as low risk in 7 days,
--- NOTE | 2018-11-09 13:02 | Discharge Summary ---
DATE OF DISCHARGE: 11/09/2018 IDENTIFYING INFORMATION: The patient is a 78-year-old female. JUSTIFICATION FOR ADMISSION: The patient was scratching her face. I saw her the day of her admission, she was very agitated, unable to make safe plan for self-care. Very hard to redirect with mumbling speech. She has a hole in her mouth and the palate. She cannot express herself very well. The patient with a history of schizoaffective disorder, multiple prior hospitalizations. The patient denies any intent to harm herself or anyone; however, she is hard to understand with multiple prior admissions to this facility. COURSE IN THE HOSPITAL: The patient was started on medication. The patient was started on Depakote because of her manic symptoms 250 mg twice a day and chlorpromazine 50 mg daily. The patient also given olanzapine 2.5 mg at bedtime. The patient progressively got better. She was no longer picking on her wounds and acting in anyway dangerous. She was sleeping well, eating well. She was calmer, responding better to redirection. She was continued with metoprolol, lisinopril, levothyroxine. She was also continued with atorvastatin. So as the patient improved, I felt the patient could be discharged to a lesser level of care. FINAL DIAGNOSIS: Schizoaffective disorder, bipolar type. MEDICAL DIAGNOSES: As per the medical doctor. The patient will go back to [facility]. She will follow up with the psychiatrist and primary care physician. Her antipsychotics will be tapered upon discharge. EXPECTED OUTCOME: Stable if the patient complies with the above. [facility]# [id number]
== END 2018-11-09 16:15 | DRG 885 ==
LOC: ER 10:55 → GERO2 12:45
PROVIDERS: ADMIT Psychiatry & Neurology Psychiatry; ATTEND Psychiatry & Neurology Psychiatry
DX: F25.0 Schizoaffective disorder, bipolar type (principal); E87.1 Hypo-osmolality and hyponatremia; F29 Unspecified psychosis not due to a substance or known physiological condition; I25.10 Atherosclerotic heart disease of native coronary artery without angina pectoris; I50.9 Heart failure, unspecified; I11.0 Hypertensive heart disease with heart failure; E78.5 Hyperlipidemia, unspecified; F03.90 Unspecified dementia, unspecified severity, without behavioral disturbance, psychotic disturbance, mood disturbance, and anxiety; M19.90 Unspecified osteoarthritis, unspecified site; E78.00 Pure hypercholesterolemia, unspecified; T14.8XXA Other injury of unspecified body region, initial encounter; F42.4 Excoriation (skin-picking) disorder; X58.XXXA Exposure to other specified factors, initial encounter; E03.9 Hypothyroidism, unspecified; D64.9 Anemia, unspecified; Z93.3 Colostomy status; Y93.89 Activity, other specified; Y92.89 Other specified places as the place of occurrence of the external cause; Y99.8 Other external cause status; Z79.899 Other long term (current) drug therapy
CPT/HCPCS: 36415-UA; 71045-TC; 80053-TC; 80061-TC; 82948-90; 83036-90; 85025-TC; 85610-TC; 85730-TC; 93005; J1630; J2060; J7040; Q0161; Z7610